=== PATIENT | male | born 1935 | race Caucasian/White ===

== ENCOUNTER → 2017-04-06 09:47 | Outpatient (CLI) | payer MEDICARE, SELFPAY ==
[2017-04-06 12:21] LABS: Hemoglobin A1c 5.8 % (4.2-6.3)
[2017-04-06 12:27] LABS: AST(SGOT) 13 U/L (15-37); Alanine Aminotransfer ALT/SGPT 21 U/L (16-61); Alkaline Phosphatase 56 U/L (45-117); Anion Gap 10 (5-15); BUN 33 mg/dL (7-18); BUN/Creat Ratio 14.7 RATIO (10-20); Bilirubin, Direct 0.21 mg/dL (0.00-0.30); Calcium,Total 9.8 mg/dL (8.5-10.1); Chloride 107 mmol/L (98-107); Cholesterol 145 mg/dL (200); Creatinine, Serum 2.24 mg/dL (0.70-1.30); EST Glomerular Filtration Rate 30 mL/min (>60); Est Glom Filt Rate - Afr Amer 36 mL/min (>60); Globulin 3.1 g/dL (2.2-4.2); Glucose 106 mg/dL (70-110); High Density Lipoprotein 37 mg/dL; Potassium 5.1 mmol/L (3.5-5.1); Protein, Total 7.1 g/dL (6.4-8.2); Sodium Level 142 mmol/L (136-145); Triglycerides 138 mg/dL; Very Low Density Lipoprotein 28 mg/dL (5-40)
== END ==
PROVIDERS: Family Provider Family Medicine; PCP Family Medicine; Visit Provider Family Medicine
DX: E11.9 Type 2 diabetes mellitus without complications (principal)
CPT/HCPCS: 36415; 80048; 80061; 80076; 82043; 82570; 83036

== ENCOUNTER 2017-05-27 19:50 | Emergency (ER) | payer MEDICARE, SELFPAY ==
[2017-05-27] VITALS (9 sets, daily range): BP systolic 137–172; BP diastolic 64–84; PULSE 70–77; RESP 16–21; TEMP 37.1; O2SAT 96–100; BMI 31.4
--- NOTE | 2017-05-27 20:07 | EKG12_ITS ---
Test Reason : CP Blood Pressure : / mmHG Vent. Rate : 070 BPM Atrial Rate : 070 BPM P-R Int : 192 ms QRS Dur : 090 ms QT Int : 414 ms P-R-T Axes : 065 003 169 degrees QTc Int : 447 ms Atrial-paced rhythm with frequent ventricular-paced complexes ST & T wave abnormality, consider lateral ischemia Abnormal ECG Confirmed by ROSARIO HOLDER, COURTNEY ([id number]), primer expeditor and drier OZZIE BARNARD ([id number]) on 05/29/2017 2:45:43 PM Referred By: ELA Confirmed By:COURTNEY PONCE MD
--- NOTE | 2017-05-27 20:10 | RAD_ITS ---
STUDY: X-RAY CHEST REASON FOR EXAM: Male, 81 years old. Chest pain, shortness of breath TECHNIQUE: Single AP portable view of the chest. COMPARISON: 03/06/2016. FINDINGS: The lungs are clear and expanded. There is no demonstrated pleural abnormality. There is mild cardiac enlargement. Patient status post sternotomy. Normal mediastinum and jose antonio. Normal visualized pulmonary arteries. Normal visualized aortic arch and descending thoracic aorta. Normal visualized thoracic spine. Normal visualized ribs, clavicles, and shoulders. There is no demonstrated abnormality of the visualized soft tissue structures of the upper abdomen. RAD/Chest 1 View (Portable) IMPRESSION: No infiltrate. Stable cardiomegaly. Electronically Signed: Roshan Burnett DO at 20:43 EDT , Service support ,
[2017-05-27] MEDS: Nitroglycerin Infusion 250 ML 3 MG IV (20:13)
[2017-05-27 20:28] LABS: International Normalized Ratio 1.2; Prothrombin Time (Protime)PT. 14.8 SECONDS (11.7-14.9)
[2017-05-27 20:29] LABS: Partial Thromboplast Time 30.3 Seconds (24.1-36.2)
[2017-05-27 20:30] LABS: Absolute Lymphocyte Count 1.13 X10^3/ul (0.83-4.51); Absolute Neutrophil Count 4.3 X10^3/uL (2.0-7.7); Basophil# 0.03 X10^3/uL; Basophil% 0.5 % (0-1); Eosinophil# 0.21 X10^3/uL; Eosinophils% 3.4 % (0-5); Hematocrit 40.3 % (40-54); Hemoglobin 12.8 g/dl (13.0-16.5); Lymphocyte # 1.13 X10^3/ul (4.0); Lymphocyte % 18.4 % (19-41); Mean Corp Hgb Conc 31.8 g/gl (32-36); Mean Corpuscular Hgb 29.3 pg (27.0-32.0); Mean Corpuscular Volume 92.2 fL (80-94); Mean Platelet Vol. 10.6 fl (6.2-12.0); Monocyte# 0.43 X10^3/uL; Neutrophil # 4.31 X10^3/uL (2.7-7.7); Neutrophil % 70.2 % (47-70); Platelet Count 337 K/mm3 (150-450); RBC Distribution Width CV 15.8 % (11.6-14.6); RBC Distribution Width SD 52.9 fl (35.1-43.9); Red Blood Count 4.37 M/mm3 (4.6-6.2); White Blood Count 6.1 K/mm3 (4.4-11.0)
[2017-05-27 20:31] LABS: POSITIVE COUNT NO; POSITIVE DIFFERENTIAL NO; POSITIVE MORPHOLOGY NO
[2017-05-27 20:34] LABS: Anion Gap 7 (5-15); BUN 41 mg/dL (7-18); BUN/Creat Ratio 15.5 RATIO (10-20); Calcium,Total 9.3 mg/dL (8.5-10.1); Chloride 109 mmol/L (98-107); Creatinine, Serum 2.65 mg/dL (0.70-1.30); EST Glomerular Filtration Rate 25 mL/min (>60); Est Glom Filt Rate - Afr Amer 30 mL/min (>60); Estimated Creatinine Clearance 20.79 ml/min; Glucose 112 mg/dL (74-106); Potassium 4.7 mmol/L (3.5-5.1); Sodium Level 142 mmol/L (136-145)
[2017-05-27] MEDS: Morphine 2 MG/ML Syringe IV (20:47)
[2017-05-27] MEDS: Ondansetron 4 MG/2 ML Vial IV (20:47)
[2017-05-27 21:15] LABS: Bedside Glucose 122 mg/dL (70-110)
--- NOTE | 2017-05-27 22:24 | ED.VISSUMM ---
- ER Visit Summary Date of Service: 05/27/17 Chief Complaint: Chest pain History of Present Illness: The patient is a 81 M arriving by EMS with a complaint of chest pain. Patient has a long history of ischemic cardiomyopathy. He has had CABG and stenting. He sees Dr. Fagan for cardiology. Patient states that his last heart catheterization was in February. He is treated medically at that time. But 1800 hrs. tonight he was alone at work when he parents a sudden onset of midsternal chest pain that rated up into his jaw on his throat. The patient states that after around 1 hour he called his . He told her that he felt like he was dying. Did not know what he should do so she called an ambulance. Administer some nitroglycerin which she states helps. EMS notes his initial blood pressure was greater than 200 which is since come down to the 140 range. Physical Examination: 157/73 temperature 98.7 heart rate 72 respirations are 16 pulse ox is 96% Gen: Well-nourished well-developed Head: Normocephalic atraumatic Eyes: Perrl EOMI ENT: TMs clear no rhinorrhea moist mucous membranes Neck: Supple no lymphadenopathy no JVD nontender CVS: Regular rate rhythm no murmurs normal S1-S2 Respiratory: No distress clear to auscultation bilaterally chest nontender Abdomen: Soft nontender nondistended normal bowel sounds no masses Back: Nontender Extremity: Nontender no edema Skin: Normal color no rash Neuro: alert orientated ?3 CN II-XII intact normal strength sensation reflexes gait cerebellar Psych: Anxious Test Results: EKG shows a atrial paced rhythm with intermittent ventricularly paced rhythms at a rate of 70. Nightly 41 creatinine 2.65. Troponin less than 0.02. Chest x-ray negative. Delta troponin was negative Emergency Department Course and Treatment: After initial H&P I spoke with Dr. Fagan. He did review our EKGs. The patient will have a delta troponin. Received nitroglycerin and morphine. He has been visiting with his family. He continues to have various aches sometimes having an ache in his jaw sometimes in his chest. Patient is eager to be discharged. Impression: 1. Chest pain This note was generated with [employer] dictation software. It may contain incorrect words, spelling, and punctuation that were not noted in review of the chart prior to signing ED Disposition - Plan for ED Patient: Disposition: Home or Assisted Living Chief Complaint: Chest Pain Instructions: ED Chest Pain Atypical Unkn Cause Referrals: Salima Tuttle MD [Primary Care Provider] - David Fagan MD [STAFF PHYSICIAN] - Keep N[facility]stor appointment
[2017-05-27] MEDS: Carvedilol 3.125 MG TABLET PO (23:04)
[2017-05-27] MEDS: Clopidogrel Bisulfate 75 MG Tablet PO (23:04)
--- NOTE | 2017-05-27 23:23 | ED.RN ---
PT REPORTS RETURN OF [facility] PAIN. DR. MAHMOOD INFORMED. ELA SALDIVAR AT BEDSIDE TO SPEAK WITH PT.
--- NOTE | 2017-05-27 23:31 | ED.RN ---
THIS RN EDUCATED PT, AND DAUGHTER ON PT DISCHARGE INSTRUCTIONS. PT AND VERBALIZE UNDERSTANDING. PT REPORTS NO FURTHER QUESTIONS. PT EDUCATED TO RETURN TO ER WITH WORSENING OR CHANGE IN SX. PT TO FOLLOW UP WITH DR. PONCE. PT IV D.C AND COVERED WITH 2X2 GAUZE DRESSING. PT REFUSES WHEELCHAIR OR ASSISTANCE WITH DRESSING. PT AMBULATORY OUT OF DEPT WITHOUT DIFFICULTY OR ASSISTANCE FROM STAFF.
== END 2017-05-27 23:33 | disposition home or self-care (01) ==
PROVIDERS: Emergency Provider Emergency Medicine; Family Provider Family Medicine; PCP Family Medicine
DX: R07.9 Chest pain, unspecified (principal); I25.5 Ischemic cardiomyopathy; Z95.1 Presence of aortocoronary bypass graft; I25.10 Atherosclerotic heart disease of native coronary artery without angina pectoris; I25.2 Old myocardial infarction; I10 Essential (primary) hypertension; I50.9 Heart failure, unspecified; E78.00 Pure hypercholesterolemia, unspecified; Z87.891 Personal history of nicotine dependence; Z79.82 Long term (current) use of aspirin; Z79.02 Long term (current) use of antithrombotics/antiplatelets; Z79.899 Other long term (current) drug therapy
CPT/HCPCS: 36415; 71045; 80048; 82962; 84484; 85025; 85610; 85730; 93005; 96365; 96375; 99285; A4216; J2405

== ENCOUNTER → 2017-07-30 10:53 | Outpatient (CLI) | payer MEDICARE, SELFPAY ==
--- NOTE | 2017-07-30 10:57 | RAD_ITS ---
STUDY: X-RAY - ABDOMEN/PELVIS REASON FOR EXAM: Male, 82 years old. History of nephrolithiasis. TECHNIQUE: Two AP supine views of the abdomen and pelvis. COMPARISON: None. FINDINGS: Increased linear markings at the left lung base suggestive of scarring with blunting of the left costophrenic angle. There is a moderate amount of colonic fecal material. The visualized liver, spleen and kidneys are grossly normal in size and morphology. Normal soft tissue structures. There are diffuse degenerative changes of the visualized lumbar spine. RAD/Abdomen Single View IMPRESSION: Moderate amount of fecal material is seen in the colon. Electronically Signed: Octavio Kurtz MD at 11:25 EDT Tel [phone], Service support ,
[2017-07-30 12:39] LABS: Anion Gap 8 (5-15); BUN 29 mg/dL (7-18); Calcium,Total 9.1 mg/dL (8.5-10.1); Chloride 105 mmol/L (98-107); Creatinine, Serum 2.23 mg/dL (0.70-1.30); EST Glomerular Filtration Rate 30 mL/min (>60); Est Glom Filt Rate - Afr Amer 37 mL/min (>60); Glucose 192 mg/dL (74-106); Potassium 4.6 mmol/L (3.5-5.1); Sodium Level 140 mmol/L (136-145)
[2017-07-30 12:53] LABS: Absolute Lymphocyte Count 0.93 X10^3/ul (0.83-4.51); Absolute Neutrophil Count 4.2 X10^3/uL (2.0-7.7); Basophil# 0.03 X10^3/uL; Basophil% 0.5 % (0-1); Eosinophils% 3.5 % (0-5); Lymphocyte # 0.93 X10^3/ul (4.0); Lymphocyte % 16.2 % (19-41); Mean Corp Hgb Conc 32.4 g/gl (32-36); Mean Corpuscular Hgb 29.5 pg (27.0-32.0); Mean Corpuscular Volume 90.9 fL (80-94); Monocyte# 0.38 X10^3/uL; Monocyte% 6.6 % (0-10); Neutrophil # 4.17 X10^3/uL (2.7-7.7); Neutrophil % 72.9 % (47-70); RBC Distribution Width CV 16.4 % (11.6-14.6)
[2017-07-30 12:54] LABS: Hematocrit 40.1 % (40-54); Mean Platelet Vol. 10.6 fl (6.2-12.0); POSITIVE COUNT NO; POSITIVE DIFFERENTIAL NO; POSITIVE MORPHOLOGY NO; Platelet Count 303 K/mm3 (150-450); Red Blood Count 4.41 M/mm3 (4.6-6.2); White Blood Count 5.7 K/mm3 (4.4-11.0)
== END ==
PROVIDERS: Family Provider Family Medicine; PCP Family Medicine; Visit Provider Family Medicine
DX: N20.0 Calculus of kidney (principal)
CPT/HCPCS: 36415; 74018; 80048; 85025; 87077; 87086; 87088; 87186

== ENCOUNTER → 2017-07-30 12:22 | Outpatient (CLI) | payer MEDICARE, SELFPAY | PROVIDERS: Family Provider Family Medicine; PCP Family Medicine; Visit Provider Family Medicine | DX: N20.0 Calculus of kidney (principal) | CPT/HCPCS: 87086 ==

== ENCOUNTER 2017-08-04 18:30 | Observation (INO) | payer MEDICARE, SELFPAY ==
[2017-08-04 18:31] VITALS: BP 116/66; PULSE 76; RESP 16; TEMP 36.6; O2SAT 99; BMI 29.2
--- NOTE | 2017-08-04 18:53 | CT_ITS ---
CT Abdomen And Pelvis W/O Contrast INDICATION: RT FLANK PAIN X ONE WEEK. Hx of kidney stones. HTN and diabetes-rx controlled. Hx of IL x 2-3,ICD,pacemaker COMPARISON: July 14, 2011 TECHNIQUE: Noncontrast axial CT examination of the abdomen and pelvis with coronal and sagittal reformatted images. FINDINGS: There is a dural based 1.6 cm rounded atelectasis seen at the left posterior lung base, unchanged compared to the prior study from 2011. The heart size is mildly prominent. The liver is normal in size. The gallbladder is surgically absent. The spleen is enlarged and measures 15 cm in craniocaudal dimension. Size and shape of the spleen is not significantly changed compared to 2012. Bilateral cortical renal atrophy is noted and multiple bilateral cortical renal cysts. Bowel loops are nondistended. There is no evidence of free air or free fluid. The prostate gland is mildly prominent with 5 cm diameter and demonstrates coarse calcifications.. There is no evidence of free air or free fluid. The osseous structures demonstrate multilevel bridging osteophytes and degenerative disc disease at all lumbar levels. CT/Abdomen/Pelvis without Cont IMPRESSION: No acute abnormality identified in the abdomen or pelvis. Stable rounded atelectasis at the left lung base. Stable splenomegaly. Stable bilateral cortical renal cysts. Stable prostatomegaly with heterogeneity. Correlation with PSA is recommended. at 1949 Reported and signed by: Mariia Orlando MD Electronically Signed: Mariia Orlnado MD at 19:47 EDT Tel , Service support ,
[2017-08-04] MEDS: Morphine 2 MG/ML Syringe IV ×2 (19:14→22:07)
[2017-08-04] MEDS: Ketorolac 30 MG/ML Syringe 15 MG IV (19:14)
[2017-08-04] MEDS: Ondansetron 4 MG/2 ML Vial IV (19:14)
[2017-08-04 19:32] LABS: Absolute Lymphocyte Count 0.98 X10^3/ul (0.83-4.51); Absolute Neutrophil Count 4.5 X10^3/uL (2.0-7.7); Basophil# 0.03 X10^3/uL; Basophil% 0.5 % (0-1); Eosinophil# 0.22 X10^3/uL; Eosinophils% 3.6 % (0-5); Hematocrit 40.7 % (40-54); Hemoglobin 13.2 g/dl (13.0-16.5); Lymphocyte # 0.98 X10^3/ul (4.0); Mean Corp Hgb Conc 32.4 g/gl (32-36); Mean Corpuscular Hgb 29.5 pg (27.0-32.0); Mean Corpuscular Volume 91.1 fL (80-94); Mean Platelet Vol. 10.1 fl (6.2-12.0); Monocyte# 0.42 X10^3/uL; Monocyte% 6.9 % (0-10); Neutrophil # 4.46 X10^3/uL (2.7-7.7); Neutrophil % 72.8 % (47-70); Platelet Count 330 K/mm3 (150-450); RBC Distribution Width CV 16.3 % (11.6-14.6); RBC Distribution Width SD 53.7 fl (35.1-43.9); Red Blood Count 4.47 M/mm3 (4.6-6.2); White Blood Count 6.1 K/mm3 (4.4-11.0)
[2017-08-04 19:33] LABS: POSITIVE COUNT NO; POSITIVE DIFFERENTIAL NO; POSITIVE MORPHOLOGY NO
[2017-08-04 19:39] LABS: Anion Gap 9 (5-15); BUN 29 mg/dL (7-18); BUN/Creat Ratio 11.8 RATIO (10-20); Chloride 104 mmol/L (98-107); Creatinine, Serum 2.45 mg/dL (0.70-1.30); EST Glomerular Filtration Rate 27 mL/min (>60); Est Glom Filt Rate - Afr Amer 33 mL/min (>60); Estimated Creatinine Clearance 22.11 ml/min; Glucose 206 mg/dL (74-106); Sodium Level 140 mmol/L (136-145)
[2017-08-04 20:18] LABS: Bacteria 0 SEEN /hpf (None Seen); Red Blood Cells-Urine 0 SEEN /hpf (0-5)
[2017-08-04 20:19] LABS: Color, Urine Yellow (Yellow); Glucose, Dipstick Normal (Normal); Ketone-Dipstick Negative (Negative); Leukocyte Esterase-Dipstick Negative /ul (Negative); Nitrite-Dipstick Negative (Negative); Occult Blood-Urine Negative /ul (Negative); Protein-Dipstick 500 mg/dl (Negative); Urine Bilirubin Dipstick Negative (Negative); Urine Clarity Sl. Cloudy (Clear); Urine Urobilinogen Normal (Normal)
[2017-08-04 20:29] LABS: Squamous Epithelial Cells - UA 0-5 SEEN /hpf (0-5); White Blood Cells 0-5 SEEN /hpf (0-5)
[2017-08-04 20:32] LABS: Fine Granular Cast- Urine 0-5 SEEN /lpf (0-5)
[2017-08-04 20:34] LABS: Hyaline Cast 10-25 SEEN /lpf (0-5)
[2017-08-04 20:36] LABS: Mucous, Urine 1+ /hpf (<or=2+)
[2017-08-04 22:05] VITALS: BP 139/64; PULSE 66; RESP 16; O2SAT 95
[2017-08-04 22:39] VITALS: BP 139/64; PULSE 66; RESP 16; TEMP 36.6; O2SAT 95
--- NOTE | 2017-08-04 22:43 | ED.DCSUM_ITS ---
- ER Visit Summary Date of Service: 08/04/17 Chief Complaint: Abdominal pain History of Present Illness: The patient is a 82 M who presents with 1 week of a continuous waxing and waning sharp stabbing right lower quadrant abdominal pain. Describes it as severe. He notes occasional nausea but no vomiting or diarrhea no constipation. Denies any urinary symptoms. No radiation of the pain. The pain is worse with movement and in particular walking. No known trauma. Patient denies any fevers. Patient denies any rashes. He has history of coronary artery disease and kidney stones. He states that this feels very similar to kidney stones. Physical Examination: Afebrile vital signs are stable Gen: Well-nourished well-developed Head: Normocephalic atraumatic Eyes: Perrl EOMI ENT: TMs clear no rhinorrhea moist mucous membranes Neck: Supple no lymphadenopathy no JVD nontender CVS: Regular rate rhythm no murmurs normal S1-S2 Respiratory: No distress clear to auscultation bilaterally chest nontender Abdomen: Soft tender to palpation in the far low right quadrant with guarding and no rebound. Pain seems to be just cephalad to the inguinal ligaments. There are no rashes. There is no obvious hernia. R nondistended normal bowel sounds no masses : Uncircumcised. There is no testicular pain. No epididymis pain. No hernia. Back: Nontender Extremity: Nontender no edema Skin: Normal color no rash Neuro: alert orientated ?3 CN II-XII intact normal strength sensation reflexes gait cerebellar Psych: Normal affect normal mood Test Results: CBC and urinalysis normal. BUN at 29 and creatinine 2.45. Noncontrasted CT demonstrated renal cyst but no obvious cause for the patient's pain. Emergency Department Course and Treatment: The patient received morphine Toradol Zofran. He has not had improvement of his pain. He does not feel like he is able to go home. The does not wish him to go home. I spoke with Dr. Vences and Dr. Castellanos. Plan will be admission for pain control and further care. Impression: 1. Acute abdominal pain This note was generated with [employer] dictation software. It may contain incorrect words, spelling, and punctuation that were not noted in review of the chart prior to signing ED Disposition - Plan for ED Patient: Chief Complaint: Flank Pain
[2017-08-04 23:36] LABS: Lactic Acid 0.6 mmol/L (0.4-2.0)
--- NOTE | 2017-08-04 23:37 | PCM.HP.STD ---
Problem List (1) Abdominal pain Status: Acute Qualifiers: Abdominal location: right lower quadrant Qualified Code(s): R10.31 - Right lower quadrant pain History of Present Illness Date of Admission: 08/04/17 Chief Complaint: Right lower quadrant abdominal pain The patient is a 82 year old M who was seen in the emergency room at [facility] with chief complaint of right lower quadrant/right inguinal area pain which he describes as sharp in nature that is been present for the last 8 days. It is not accompanied by urinary urgency or urinary frequency or dysuria. Patient states the pain is worse when weightbearing on his right leg, he did have some nausea with the lower abdominal discomfort, he denied any diarrhea, vomiting, or blood in the stool. Patient saw his PCP last 07/30/17 and was placed on Flomax (patient mentioned to the emergency room physician today that his family physician thought he may have had a kidney stone) and Vicodin, a KUB was ordered at that time which showed a moderate amount of fecal material in the colon but was otherwise unremarkable. Workup in the emergency room today consisted of a CT of the abdomen and pelvis without contrast, no acute abnormality was noted, patient had labs drawn which were remarkable for glucose of 206, BUN of 29, creatinine of 2.45. Urine culture obtained as an outpatient on 07/30/17 grew out small numbers of Sphingomonas paucimobilis. On physical examination, patient had right lower quadrant abdominal pain to palpation-more so in the right inguinal area near the inguinal ligament. No discernible inguinal hernia was noted to be present, patient's right testicle was not tender, it was not enlarged, and there was no scrotal edema. Patient was given IV morphine in the emergency room with some relief of the abdominal pain. Patient will be placed in observation status for right lower quadrant abdominal pain, general surgery was consulted and will see the patient tomorrow. 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) Pneumonia (Chronic) Hypertensive heart disease without heart failure (Chronic) HTN (hypertension) (Chronic) HLD (hyperlipidemia) (Chronic) Esophageal reflux (Chronic) Diaphragmatic hernia (Chronic) Type II diabetes mellitus, uncontrolled (Chronic) Coronary atherosclerosis of [place] coronary artery (Chronic) Unstable angina (Chronic) Renal insufficiency (Chronic) Cardiac pacemaker (Chronic) 12/14 Implantable Loop Recorder; 02/12/09 Removal of Loop Recorder; PPM Implant 05/2014 Ventricular tachycardia (Chronic) S/P PTCA (percutaneous transluminal coronary angioplasty) (Chronic) S/P CABG x 2 (Chronic) CABG with RUSH to LAD, SVG to Cx 06/17/05 Dr. Cotto; 06/25/05, Sternal Dehiscence strnal rewiring & debridement CHF (congestive heart failure) (Chronic) NSTEMI (non-ST elevated myocardial infarction) (Chronic) Cardiomyopathy (Chronic) Allergies Penicillins Allergy (Verified 08/04/17 18:34) Anaphylaxis rosuvastatin calcium [From Crestor] Allergy (Verified 08/04/17 18:34) Unknown Kqcfnrv-[id number]-Kmi Reductase Inhibitor Allergy (Verified 08/04/17 18:34) Other amlodipine [From Norvasc] Adverse Reaction (Intermediate, Verified 08/04/17 18:34) GI upset Home Medications: Ambulatory Orders Medication Instructions Recorded Clopidogrel Bisulfate [Plavix] 75 mg PO QHS 03/12/14 Folic Acid 5 mg PO QHS 03/12/14 Aspirin [Aspirin, Baby] 81 mg PO QHS 04/14/14 Multivitamins,Therapeutic 1 tab PO QHS 04/14/14 [Multivitamin] Ubidecarenone [Q-Sorb Co Q-10] 100 mg PO QHS 02/25/16 Carvedilol [Coreg (Beta David)] 3.125 mg PO BID #60 tab 02/27/16 Isosorbide Mononitrate [Monoket] 20 mg PO BID@0800,1500 #60 tab 03/07/16 amlodipine 5 mg tablet 5 mg PO QDAY tab 06/04/17 metformin ER 500 mg 500 mg PO DAILY 90 Days #90 06/04/17 tablet,extended release 24 hr nitroglycerin 0.4 mg sublingual 0.4 mg SUBLINGUAL Q5M PRN #25 tab 06/05/17 tablet furosemide 20 mg tablet 20 mg PO QDAY #30 tab 07/17/17 Surgical History: cholecystectomy, and PCI to LMA graft Psychiatric History: No pertinent psych hx Lives: Spouse/ Significant Other Smoking Status: Former smoker Tobacco Use: Non-smoker Alcohol: Rare Drugs: None - *Family History Paternal History Items: Heart Disease Maternal History Items: No pertinent history Review of Systems Constitutional: Denies: Anorexia, Chills, Fever, Night Sweats, Malaise, Weakness, Weight Change, Fatigue Eyes: Denies: Blurred vision, Cataracts, Conjunctivae Inflammation, Double vision, Drainage HEENT: Denies: Difficulty Swallowing, Dysphasia, Ear Pain, Eye Pain, Hearing Changes, Nasal bleeding, Nasal Congestion, Post Nasal Drip Cardiovascular: Denies: Chest Pain, Claudication, Chest Pressure, Chest Tightness, Edema, Heaviness, Palpitations, Paroxysmal Noc. Dyspnea Respiratory: Denies: Cough, Hemoptysis, Pleuritic Pain, Shortness of Breath, Shortness of breath at rest, Shortness of breath upon exertion, Sputum production Gastrointestinal: Reports: Abdominal Pain, Nausea. Denies: Constipation, Diarrhea, Dyspepsia, Hematemesis, Hematochezia, Melena, Vomiting Genitourinary: Denies: Dysuria, Frequency, Hematuria, Hesitancy, Incontinence, Nocturia, Retention, Urgency Musculoskeletal: Reports: Leg Pain, - - Patient complains of pain in the right inguinal area when walking or weightbearing. Denies: Back Pain, Foot Pain, Hand Pain, Joint stiffness, Joint swelling, Joint Tenderness Skin: Denies: Dryness, Pruritis, Rash Neurological: Denies: Blurred vision, Double vision, Change in Speech, Slurred speech, Difficulty swallowing, Focal weakness, Headaches, Incoordination, Numbness, Tingling Psychiatric: Denies: Anxiety, Depression, Homicidal Ideations, Suicidal Ideations Endocrine: Denies: Change in Body Habitus, Heat/ Cold Intolerance, Polydipsia, Polyuria Hematologic/ Lymphatic: Denies: Adenopathy, Anemia, Easy Bruising, Easy Bleeding, Petechiae, Purpura VTE Information - Inpt Only VTE Present on Admission: No VTE Mechan Device Prophylaxis: None VTE Pharm Prophylaxis ordered?: Yes Patient Problems: Active and Suspected Problems (Last Updated 06/04/17 @ 09:46 by Abby Suero) Abdominal pain (Acute) - Physical Exam General: Alert, Oriented x3, Cooperative, No apparent distress, Well developed, Well nourished HEENT: Atraumatic, PERRLA, EOMI, Normocephalic Oral: Moist Mucosa Neck: Supple, No JVD, Negative Carotid Bruits, No Nuchal Rigidity, Trachea Midline, Thyroid Normal Size and Texture Lungs: Clear to auscultation, Normal air movement, No rhonchi, No wheeze, No rales Cardiovascular: Regular rate, Regular Rhythm, Normal S1, Normal S2, No murmurs, No Ectopic Activity, PMI Normal, No rub noted, No Gallop Abdomen: Bowel Sounds Present, Soft, Non-Distended, Tender - Tenderness to palpation is noted over the right lower quadrant extending into the right inguinal area, No hernias noted Extremities: No clubbing, No cyanosis, No edema, Capillary Refill Less than 3 Seconds Skin: No rashes, No breakdown Musculoskeletal: Tenderness - Tenderness to palpation in the right inguinal area noted Neurological: Cranial nerves II-XII grossly intact, Neuro grossly intact, Muscle tone normal, Sensory exam intact to light touch and pain, Coordination normal Psych/Mental Status: Normal Affect, Appropriate, Alert and oriented to time, place, person, mood and affect Vital Signs Temp Pulse Resp BP Pulse Ox 97.8 F 66 16 139/64 H 95 08/04/17 22:39 08/04/17 22:39 08/04/17 22:39 08/04/17 22:39 08/04/17 22:39 Laboratory Tests Past 24 Hrs 08/04/17 23:05 Lactic Acid 0.6 Assessment/Plan Active and Suspected Problems (Last Updated 06/04/17 @ 09:46 by Abby Suero) Abdominal pain (Acute) #1 right lower quadrant abdominal pain-etiology unclear, patient will be placed in observation status on MedSur, he will be placed on clear liquids, IV fluids will be administered, he will be seen in consultation by general surgery. I do not feel the patient's pain is characteristic of ischemic bowel #2 right inguinal area pain-I am unsure as to what the etiology of this discomfort is, it could be a inguinal ligamental strain or pain relating to the right hip. If general surgery does not feel there is a definite surgical diagnosis for the patient's abdominal pain, this area may need to be x-rayed or the patient may need to be seen by orthopedic surgery. Patient relates to pain in his right leg over the inguinal area when he ambulates or bears weight. 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 Castellanos by the emergency room physician. I will leave it up to general surgery to order further studies as needed #4 type 2 diabetes-patient's blood sugar will be monitored and sliding scale insulin will be administered if needed #5 Coronary artery disease #6 ischemic cardiomyopathy #7 hypertension #8 hyperlipidemia Code Visit OBSV E&M: 44116 Initial observation care L3
[2017-08-05 00:15] VITALS: BMI 28.5; BMI 28.6
[2017-08-05] MEDS: 0.9% Normal Saline 1,000 ML 75 ML IV ×2 (00:44→13:33)
[2017-08-05] MEDS: Morphine 4 MG/ML Syringe IV ×2 (03:24→18:55)
[2017-08-05] MEDS: 0.9% NaCl Peripheral Flush Adult/Peds IV (03:24)
[2017-08-05 03:41] VITALS: BP 154/74; PULSE 70; RESP 18; TEMP 36.2; O2SAT 95
--- NOTE | 2017-08-05 03:48 | NURSING ---
PT DOES NOT KNOW DOSAGES OF HOME MEDICATIONS. MD'S OFFICE AND PHARMACY NOT AVAILABLE AT TIME OF ADMISSION.
[2017-08-05] MEDS: Heparin Injection (Vial) 5,000 UNIT/ML VIAL 5000 UNIT SC ×3 (05:59→22:08)
[2017-08-05 06:00] LABS: Anion Gap 8 (5-15); BUN 32 mg/dL (7-18); BUN/Creat Ratio 12.7 RATIO (10-20); Calcium,Total 9.1 mg/dL (8.5-10.1); Chloride 106 mmol/L (98-107); Creatinine, Serum 2.52 mg/dL (0.70-1.30); EST Glomerular Filtration Rate 26 mL/min (>60); Est Glom Filt Rate - Afr Amer 32 mL/min (>60); Estimated Creatinine Clearance 21.49 ml/min; Glucose 141 mg/dL (74-106); Potassium 4.5 mmol/L (3.5-5.1); Sodium Level 142 mmol/L (136-145)
[2017-08-05 06:05] LABS: Bedside Glucose 149 mg/dL (70-110)
[2017-08-05 06:09] LABS: Absolute Lymphocyte Count 0.86 X10^3/ul (0.83-4.51); Absolute Neutrophil Count 2.8 X10^3/uL (2.0-7.7); Basophil# 0.01 X10^3/uL; Basophil% 0.2 % (0-1); Eosinophil# 0.12 X10^3/uL; Eosinophils% 2.8 % (0-5); Hematocrit 35.8 % (40-54); Hemoglobin 11.6 g/dl (13.0-16.5); Lymphocyte # 0.86 X10^3/ul (4.0); Lymphocyte % 20.3 % (19-41); Mean Corp Hgb Conc 32.4 g/gl (32-36); Mean Corpuscular Hgb 29.6 pg (27.0-32.0); Mean Corpuscular Volume 91.3 fL (80-94); Mean Platelet Vol. 9.8 fl (6.2-12.0); Monocyte# 0.47 X10^3/uL; Monocyte% 11.1 % (0-10); Neutrophil # 2.77 X10^3/uL (2.7-7.7); Neutrophil % 65.4 % (47-70); Platelet Count 263 K/mm3 (150-450); RBC Distribution Width CV 16.4 % (11.6-14.6); RBC Distribution Width SD 54.9 fl (35.1-43.9); Red Blood Count 3.92 M/mm3 (4.6-6.2); White Blood Count 4.2 K/mm3 (4.4-11.0)
[2017-08-05 06:12] LABS: POSITIVE COUNT NO; POSITIVE DIFFERENTIAL NO; POSITIVE MORPHOLOGY NO
--- NOTE | 2017-08-05 07:02 | PCM.PROGNOTE ---
Patient Problems: Active and Suspected Problems (Last Updated 06/04/17 @ 09:46 by Abby Suero) Abdominal pain (Acute) Subjective: Mr. Otto is an 82-year-old male with an extensive past medical history that includes ischemic cardiomyopathy, coronary artery disease with stents, right bundle branch block, complete heart block, combined systolic and diastolic congestive heart failure, hypertension, hyperlipidemia, GERD, diaphragmatic hernia, diabetes mellitus type 2, chronic renal failure stage III, cardiac pacemaker, ventricular tachycardia, and history of CABG ?2 vessels in 2005 who preented to the ED at [facility] on 08/04/2017 complaining of right lower quadrant abdominal pain. Vital signs at presentation to the emergency room were temperature 97.8, pulse rate 76, blood pressure 116/66, respiratory rate 16 and he was 99% saturated on room air. White blood cell count was normal at 6.1 with an unremarkable differential. Hemoglobin and platelets were within normal limits. BMP was remarkable for a potassium of 5.0, BUN of 29 and a creatinine of 2.45. 2.45 is within his baseline over the past 5 months. UA showed 0-5 WBCs, 0 RBCs, negative nitrite and there were 10-[address] scan of the abdomen and pelvis showed no acute abnormality. He was admitted to the hospital for observation and Dr. Castellanos was consulted for surgical opinion. Afebrile since admission. Vital signs are stable. White blood cell count today is mildly decreased at 4.2 and differential is unremarkable. Hemoglobin is 11.6 and platelets are normal. BMP shows the BUN to be 32 today with a creatinine of 2.52. Up from 2.45 at admission. EF 30% on cath in 2016 He tells me that he had a kidney stone 14 years ago and had the exact same SX. W/U at that time was negative however Dr. Ndiaye though he had a stone and he eventually passed a stone and has not had the pain since. He is c/o pain in the right flank that radiates into the right groin and into the right testicle. He denies painful urination. The pain gets worse when he is standing and he describes it as 10/10 pain. Denies any radiation of the pain down his legs and denies any paresthesias. - Physical Exam General: Alert, Oriented x3, Cooperative, Well developed, Well nourished HEENT: Atraumatic, PERRLA, EOMI, Normocephalic Oral: Moist Mucosa Neck: Supple, No JVD, Negative Carotid Bruits, No Nodes, Trachea Midline Lungs: Clear to auscultation Cardiovascular: Regular rate, Regular Rhythm, Normal S1, Normal S2, No murmurs, No rub noted, No Gallop Abdomen: Bowel Sounds Present, Soft, Non-Distended, - - Show only mild degenerative changes. Tender to palpation in the R Flank and it radiates into the R groin. The right testicle is tender to palpation but not enlarged, no red, no warmth to touch. He is uncircumscribed and the glans has no lesions. He has increased pain with Arturo Ervin test on the R but not until the leg is significantly externally rotated and the Hip Xrays show only mild degenerative changes. Extremities: No clubbing, No cyanosis, No edema, Peripheral Pulses Normal Skin: No rashes, No breakdown Musculoskeletal: No Muscle Wasting Neurological: Cranial nerves II-XII grossly intact, Neuro grossly intact Psych/Mental Status: Normal Affect, Appropriate Vital Signs Temp Pulse Resp BP Pulse Ox 97.2 F L 70 18 154/74 H 95 08/05/17 03:41 08/05/17 03:41 08/05/17 03:41 08/05/17 03:41 08/05/17 03:41 Oxygen Delivery Method Room Air Weight: 182 lb 8.684 oz Body Mass Index (BMI) 28.5 Intake and Output for Last 24 Hours 08/03/17 08/04/17 08/05/17 23:59 23:59 23:59 Intake Total 827 / 827 Balance 827 / 827 Laboratory Tests Past 24 Hrs 08/04/17 08/05/17 08/05/17 23:05 05:14 05:14 WBC 4.2 L RBC 3.92 L Hgb 11.6 L Hct 35.8 L MCV 91.3 MCH 29.6 MCHC 32.4 RDW 16.4 H RDW Differential 54.9 H Plt Count 263 MPV 9.8 Immature Gran % (Auto) 0.200 Neut % (Auto) 65.4 Lymph % (Auto) 20.3 [place] % (Auto) 11.1 H Eos % (Auto) 2.8 Baso % (Auto) 0.2 Absolute Neuts (auto) 2.8 Absolute Lymphs (auto) 0.86 Total Counted Not Reportable Sodium 142 Potassium 4.5 Chloride 106 Carbon Dioxide 28.0 Anion Gap 8 BUN 32 H Creatinine 2.52 H Estim Creat Clear Calc 21.49 Est GFR (MDRD) Af Amer 32 L Est GFR (MDRD) Non-Af 26 L BUN/Creatinine Ratio 12.7 Glucose 141 H Lactic Acid 0.6 Calcium 9.1 POC Glucose 08/05/17 05:57 POC Glucose 149 H Medical Necessity - Tobacco Use Smoking Status: Former smoker Tobacco Use: Non-smoker Assessment/Plan All Active Problems (Last Updated 06/04/17 @ 09:46 by Abby Suero) Abdominal pain (Acute) Impressions 1. R groin pain - uncertain etiology. Had nephrolithiasis 14 years ago and had the same pain until he passed a stone.....3 day W/U in the hospital at that time was also negative 2. Positive history of nephrolithiasis 3. Enlarged prostate 4. Chronic renal failure stage III - 4 5. History of ischemic cardiomyopathy with a 30% ejection fraction 6. Coronary artery disease with history of stents and CABG in [address] Fagan- 7. Right bundle branch block 8. Complete heart block-status post pacemaker 9. History of ventricular tachycardia 10. Diabetes mellitus type 2 Liver profile PSA, XRAY hips and pelvis calculate the corrected serum calcium Continue the IV fluids Nephrology consult? inpt or OP? he now has stage 3-4 CRF Start Bentyl Consult Dr. Steiner - pt may have a radiolucent ston....CT of the abd and the pelvis was done without contrast....would not use contrast in this pt due to CRF III-IV. Retrograde pyelogram? Code Visit Inpatient E&M: 26421 Subs Hosp L2
--- NOTE | 2017-08-05 07:13 | RAD_ITS ---
STUDY: X-RAY - PELVIS AND BILATERAL HIPS REASON FOR EXAM: Male, 82 years old. Right groin pain. No known injury. TECHNIQUE: Radiological exam, hip, bilateral, with pelvis when performed; minimum of 5 views COMPARISON: None. FINDINGS: There is a non-specific bowel gas pattern. Normal visualized soft tissue structures. Normal bilateral iliac wings, sacroiliac joints and visualized sacrum. Normal bilateral superior and inferior pubic rami. Normal pubic symphysis. Normal bilateral ischial tuberosities. Normal visualized right femoral head. There is osteoarthritic spur formation of the right acetabular rim. There is mild articular joint space narrowing of the right hip. Normal visualized left femoral head. Normal left acetabulum. There is mild articular joint space narrowing of the left hip. RAD/Hips B/L min 2 views w/ Pelvis IMPRESSION: Mild degree of both degenerative changes of the hip joints bilaterally. Electronically Signed: Octavio Kurtz MD at 12:59 EDT Tel [phone], Service support ,
[2017-08-05 07:38] LABS: AST(SGOT) 13 U/L (15-37); Alanine Aminotransfer ALT/SGPT 15 U/L (16-61); Albumin, Serum 3.5 g/dL (3.2-5.0); Alkaline Phosphatase 51 U/L (45-117); Bilirubin, Direct 0.27 mg/dL (0.00-0.30); Globulin 2.7 g/dL (2.2-4.2); PSA,Total - Annual Screen 3.84 ng/mL (0.00-4.00); Phosphorus 4.4 mg/dL (2.5-4.9); Protein, Total 6.2 g/dL (6.4-8.2)
--- NOTE | 2017-08-05 07:41 | PCM.CONS.GEN ---
Reason for Consult Date of Consultation: 08/05/17 History of Present Illness: The patient is a 82 year old M admitted for right lower abdomen/groin pain patient stated it started a week ago Thursday she he did see his PCP on Thursday. Patient states he has gotten worse and the pain a 10/10 at its better with rest currently states it is a 4/10 but is worse with movement. He denies noticing any bulge in that area. Patient denies any event that happened right before he noticed the pain. Denies any nausea or vomiting fevers or chills or dysuria. 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) Right bundle branch block (Chronic) Complete AV block, 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) Pneumonia (Chronic) Hypertensive heart disease without heart failure (Chronic) HTN (hypertension) (Chronic) HLD (hyperlipidemia) (Chronic) Esophageal reflux (Chronic) Diaphragmatic hernia (Chronic) Type II diabetes mellitus, uncontrolled (Chronic) Coronary atherosclerosis of [place] coronary artery (Chronic) Unstable angina (Chronic) Renal insufficiency (Chronic) Cardiac pacemaker (Chronic) 12/14 Implantable Loop Recorder; 02/12/09 Removal of Loop Recorder; PPM Implant 05/2014 Ventricular tachycardia (Chronic) S/P PTCA (percutaneous transluminal coronary angioplasty) (Chronic) S/P CABG x 2 (Chronic) CABG with RUSH to LAD, SVG to Cx 06/17/05 Dr. 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) I50.43 HTN (hypertension) (Chronic) I10 HLD (hyperlipidemia) (Chronic) E78.5 Type II diabetes mellitus, uncontrolled (Chronic) E11.65 Coronary atherosclerosis of [place] coronary artery (Chronic) I25.10 Renal insufficiency (Chronic) N28.9 Cardiac pacemaker (Chronic) Z95.0 12/14 Implantable Loop Recorder; 02/12/09 Removal of Loop Recorder; PPM Implant 05/2014 NSTEMI (non-ST elevated myocardial infarction) (Chronic) I21.4 Allergies Penicillins Allergy (Verified 08/04/17 18:34) Anaphylaxis rosuvastatin calcium [From Crestor] Allergy (Verified 08/05/17 00:18) legs hurt Ajbqjsa-Ebn-Aoj Reductase Inhibitor Allergy (Verified 08/05/17 00:18) body aches amlodipine [From Norvasc] Adverse Reaction (Intermediate, Verified 08/05/17 00:18) dizzy Home Medications: Ambulatory Orders Medication Instructions Recorded Clopidogrel Bisulfate [Plavix] 75 mg PO QHS 03/12/14 Folic Acid 5 mg PO QHS 03/12/14 Aspirin [Aspirin, Baby] 81 mg PO QHS 04/14/14 Multivitamins,Therapeutic 1 tab PO QHS 04/14/14 [Multivitamin] Ubidecarenone [Q-Sorb Co Q-10] 100 mg PO QHS 02/25/16 Carvedilol [Coreg (Beta David)] 3.125 mg PO BID #60 tab 02/27/16 Isosorbide Mononitrate [Monoket] 20 mg PO BID@0800,1500 #60 tab 03/07/16 amlodipine 5 mg tablet 5 mg PO QDAY tab 06/04/17 metformin ER 500 mg 500 mg PO DAILY 90 Days #90 06/04/17 tablet,extended release 24 hr nitroglycerin 0.4 mg sublingual 0.4 mg SUBLINGUAL Q5M PRN #25 tab 06/05/17 tablet furosemide 20 mg tablet 20 mg PO QDAY #30 tab 07/17/17 Surgical History: Surgical History (Last Updated 06/04/17 @ 09:46 by Abby Suero) Presence of coronary angioplasty implant and graft (Chronic) Z95.5 Cardiac cath left, 2005 with TAXUS MARIUM of left main stem & proximal OM1; Cardiac ath @ [facility] then PCI @ [facility] 08/11/13 MARIUM prox CX & MARIUM prox LAD S/P PTCA (percutaneous transluminal coronary angioplasty) (Chronic) Z98.61 S/P CABG x 2 (Chronic) Z95.1 CABG with RUSH to LAD, SVG to Cx 06/17/05 Dr. Cotto; 06/25/05, Sternal Dehiscence strnal rewiring & debridement Surgical History: cholecystectomy, and PCI to LMA graft Psychiatric History: No pertinent psych hx Lives: Spouse/ Significant Other Smoking Status: Former smoker Tobacco Use: Non-smoker Alcohol: Rare Drugs: None - *Family History Paternal Family History: Family History (Last Updated 06/04/17 @ 09:48 by Abby Suero) Father Myocardial infarction Hypertension Heart disease Mother Hypertension Emphysema of lung FH: brain aneurysm Daughter Afib History Items: Heart Disease Maternal Family History: Family History (Last Updated 06/04/17 @ 09:48 by Abby Suero) Father Myocardial infarction Hypertension Heart disease Mother Hypertension Emphysema of lung FH: brain aneurysm Daughter Afib History Items: No pertinent history Review of Systems Constitutional: Denies: Chills, Fever Eyes: Reports: Blurred vision HEENT: Denies: Difficulty Swallowing Cardiovascular: Denies: Chest Pressure Respiratory: Denies: Shortness of breath at rest Gastrointestinal: Denies: Nausea, Vomiting Genitourinary: Denies: Dysuria Musculoskeletal: Denies: Joint Pain Neurological: Denies: Confusion Psychiatric: Denies: Anxiety Hematologic/ Lymphatic: Denies: Easy Bruising Patient Problems: Active and Suspected Problems (Last Updated 06/04/17 @ 09:46 by Abby Suero) Abdominal pain (Acute) - Physical Exam General: Alert, Oriented x3, Cooperative Lungs: Normal air movement Cardiovascular: Regular rate Abdomen: Soft, Non-Distended, Tender - In the right inguinal region, no guarding or rebound, - - Positive tenderness palpation of the right testicle, no obvious hernia on exam Extremities: No clubbing, No cyanosis, No edema Neurological: Cranial nerves II-XII grossly intact Psych/Mental Status: Normal Affect Vital Signs Temp Pulse Resp BP Pulse Ox 97.2 F L 70 18 154/74 H 95 08/05/17 03:41 08/05/17 03:41 08/05/17 03:41 08/05/17 03:41 08/05/17 03:41 Oxygen Delivery Method Room Air Weight: 182 lb 8.684 oz Body Mass Index (BMI) 28.5 Intake and Output for Last 24 Hours 08/03/17 08/04/17 08/05/17 23:59 23:59 23:59 Intake Total 827 / 827 Balance 827 / 827 Laboratory Tests Past 24 Hrs 08/04/17 08/05/17 08/05/17 23:05 05:14 05:14 WBC 4.2 L RBC 3.92 L Hgb 11.6 L Hct 35.8 L MCV 91.3 MCH 29.6 MCHC 32.4 RDW 16.4 H RDW Differential 54.9 H Plt Count 263 MPV 9.8 Immature Gran % (Auto) 0.200 Neut % (Auto) 65.4 Lymph % (Auto) 20.3 [place] % (Auto) 11.1 H Eos % (Auto) 2.8 Baso % (Auto) 0.2 Absolute Neuts (auto) 2.8 Absolute Lymphs (auto) 0.86 Total Counted Not Reportable Sodium 142 Potassium 4.5 Chloride 106 Carbon Dioxide 28.0 Anion Gap 8 BUN 32 H Creatinine 2.52 H Estim Creat Clear Calc 21.49 Est GFR (MDRD) Af Amer 32 L Est GFR (MDRD) Non-Af 26 L BUN/Creatinine Ratio 12.7 Glucose 141 H Lactic Acid 0.6 Calcium 9.1 Phosphorus Magnesium Total Bilirubin Direct Bilirubin AST ALT Alkaline Phosphatase Total Protein Albumin Globulin PSA Screen 08/05/17 05:14 WBC RBC Hgb Hct MCV MCH MCHC RDW RDW Differential Plt Count MPV Immature Gran % (Auto) Neut % (Auto) Lymph % (Auto) [place] % (Auto) Eos % (Auto) Baso % (Auto) Absolute Neuts (auto) Absolute Lymphs (auto) Total Counted Sodium Potassium Chloride Carbon Dioxide Anion Gap BUN Creatinine Estim Creat Clear Calc Est GFR (MDRD) Af Amer Est GFR (MDRD) Non-Af BUN/Creatinine Ratio Glucose Lactic Acid Calcium Phosphorus 4.4 Magnesium 2.0 Total Bilirubin 1.20 H Direct Bilirubin 0.27 AST 13 L ALT 15 L Alkaline Phosphatase 51 Total Protein 6.2 L Albumin 3.5 Globulin 2.7 PSA Screen 3.84 POC Glucose 08/05/17 05:57 POC Glucose 149 H Assessment/Plan All Active Problems (Last Updated 06/04/17 @ 09:46 by Abby Suero) Abdominal pain (Acute) 82-year-old male with right lower abdomen/groin pain ?[address] abdomen pelvis done in the ER which did not show any acute findings. On exam no obvious right inguinal hernia, on my exam he did have tenderness in his right testicle however the UA was negative. Unknown etiology of his right abdominal/groin pain. No plans for any surgical intervention currently. Jannet Castellanos M.D. Pager: [phone] [facility] [address] [place] [address], [facility], [address] [place] [id number] Office: [phone] Code Visit Inpatient E&M: 45057 Init Hosp L1
--- NOTE | 2017-08-05 07:47 | CON.PCM_ITS ---
Reason for Consult Date of Consultation: 08/05/17 History of Present Illness: The patient is a 82 year old M admitted for right lower abdomen/groin pain patient stated it started a week ago Thursday she he did see his PCP on Thursday. Patient states he has gotten worse and the pain a 10/10 at its better with rest currently states it is a 4/10 but is worse with movement. He denies noticing any bulge in that area. Patient denies any event that happened right before he noticed the pain. Denies any nausea or vomiting fevers or chills or dysuria. 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) Right bundle branch block (Chronic) Complete AV block, 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) Acute on chronic combined systolic and diastolic congestive heart failure ( Chronic) Pneumonia (Chronic) Hypertensive heart disease without heart failure (Chronic) HTN (hypertension) (Chronic) HLD (hyperlipidemia) (Chronic) Esophageal reflux (Chronic) Diaphragmatic hernia (Chronic) Type II diabetes mellitus, uncontrolled (Chronic) Coronary atherosclerosis of [place] coronary artery (Chronic) Unstable angina (Chronic) Renal insufficiency (Chronic) Cardiac pacemaker (Chronic) 12/14 Implantable Loop Recorder; 02/12/09 Removal of Loop Recorder; PPM Implant 05/2014 Ventricular tachycardia (Chronic) S/P PTCA (percutaneous transluminal coronary angioplasty) (Chronic) S/P CABG x 2 (Chronic) CABG with RUSH to LAD, SVG to Cx 06/17/05 Dr. Cotto; 06/25/05, Sternal Dehiscence strnal rewiring & debridement CHF (congestive heart failure) (Chronic) NSTEMI (non-ST elevated myocardial infarction) (Chronic) Cardiomyopathy (Chronic) Medical History: Medical History (Last Updated 06/04/17 @ 09:46 by Abby Suero) Ischemic cardiomyopathy (Chronic) I25.5 Right bundle branch block (Chronic) I45.10 Complete AV block, acquired (Chronic) I44.2 Old myocardial infarction (Chronic) I25.2 Acute on chronic combined systolic and diastolic congestive heart failure ( Chronic) I50.43 HTN (hypertension) (Chronic) I10 HLD (hyperlipidemia) (Chronic) E78.5 Type II diabetes mellitus, uncontrolled (Chronic) E11.65 Coronary atherosclerosis of [place] coronary artery (Chronic) I25.10 Renal insufficiency (Chronic) N28.9 Cardiac pacemaker (Chronic) Z95.0 12/14 Implantable Loop Recorder; 02/12/09 Removal of Loop Recorder; PPM Implant 05/2014 NSTEMI (non-ST elevated myocardial infarction) (Chronic) I21.4 Allergies Penicillins Allergy (Verified 08/04/17 18:34) Anaphylaxis rosuvastatin calcium [From Crestor] Allergy (Verified 08/05/17 00:18) legs hurt Djypmvz-Mma-Wjk Reductase Inhibitor Allergy (Verified 08/05/17 00:18) body aches amlodipine [From Norvasc] Adverse Reaction (Intermediate, Verified 08/05/17 00: 18) dizzy Home Medications: Ambulatory Orders Medication Instructions Recorded Clopidogrel Bisulfate [Plavix] 75 mg PO QHS 03/12/14 Folic Acid 5 mg PO QHS 03/12/14 Aspirin [Aspirin, Baby] 81 mg PO QHS 04/14/14 Multivitamins,Therapeutic 1 tab PO QHS 04/14/14 [Multivitamin] Ubidecarenone [Q-Sorb Co Q-10] 100 mg PO QHS 02/25/16 Carvedilol [Coreg (Beta David)] 3.125 mg PO BID #60 tab 02/27/16 Isosorbide Mononitrate [Monoket] 20 mg PO BID@0800,1500 #60 tab 03/07/16 amlodipine 5 mg tablet 5 mg PO QDAY tab 06/04/17 metformin ER 500 mg 500 mg PO DAILY 90 Days #90 06/04/17 tablet,extended release 24 hr nitroglycerin 0.4 mg sublingual 0.4 mg SUBLINGUAL Q5M PRN #25 tab 06/05/17 tablet furosemide 20 mg tablet 20 mg PO QDAY #30 tab 07/17/17 Surgical History: Surgical History (Last Updated 06/04/17 @ 09:46 by Abby Suero) Presence of coronary angioplasty implant and graft (Chronic) Z95.5 Cardiac cath left, 2005 with TAXUS MARIUM of left main stem & proximal OM1; Cardiac ath @ [facility] then PCI @ [facility] 08/11/13 MARIUM prox CX & MARIUM prox LAD S/P PTCA (percutaneous transluminal coronary angioplasty) (Chronic) Z98.61 S/P CABG x 2 (Chronic) Z95.1 CABG with RUSH to LAD, SVG to Cx 06/17/05 Dr. Cotto; 06/25/05, Sternal Dehiscence strnal rewiring & debridement Surgical History: cholecystectomy, and PCI to LMA graft Psychiatric History: No pertinent psych hx Lives: Spouse/ Significant Other Smoking Status: Former smoker Tobacco Use: Non-smoker Alcohol: Rare Drugs: None - *Family History Paternal Family History: Family History (Last Updated 06/04/17 @ 09:48 by Abby Suero) Father Myocardial infarction Hypertension Heart disease Mother Hypertension Emphysema of lung FH: brain aneurysm Daughter Afib History Items: Heart Disease Maternal Family History: Family History (Last Updated 06/04/17 @ 09:48 by Abby Suero) Father Myocardial infarction Hypertension Heart disease Mother Hypertension Emphysema of lung FH: brain aneurysm Daughter Afib History Items: No pertinent history Review of Systems Constitutional: Denies: Chills, Fever Eyes: Reports: Blurred vision HEENT: Denies: Difficulty Swallowing Cardiovascular: Denies: Chest Pressure Respiratory: Denies: Shortness of breath at rest Gastrointestinal: Denies: Nausea, Vomiting Genitourinary: Denies: Dysuria Musculoskeletal: Denies: Joint Pain Neurological: Denies: Confusion Psychiatric: Denies: Anxiety Hematologic/ Lymphatic: Denies: Easy Bruising Patient Problems: Active and Suspected Problems (Last Updated 06/04/17 @ 09:46 by Abby Suero) Abdominal pain (Acute) - Physical Exam General: Alert, Oriented x3, Cooperative Lungs: Normal air movement Cardiovascular: Regular rate Abdomen: Soft, Non-Distended, Tender - In the right inguinal region, no guarding or rebound, - - Positive tenderness palpation of the right testicle, no obvious hernia on exam Extremities: No clubbing, No cyanosis, No edema Neurological: Cranial nerves II-XII grossly intact Psych/Mental Status: Normal Affect Vital Signs Temp Pulse Resp BP Pulse Ox 97.2 F L 70 18 154/74 H 95 08/05/17 03:41 08/05/17 03:41 08/05/17 03:41 08/05/17 03:41 08/05/17 03:41 Oxygen Delivery Method Room Air Weight: 182 lb 8.684 oz Body Mass Index (BMI) 28.5 Intake and Output for Last 24 Hours 08/03/17 08/04/17 08/05/17 23:59 23:59 23:59 Intake Total 827 / 827 Balance 827 / 827 Laboratory Tests Past 24 Hrs 08/04/17 08/05/17 08/05/17 23:05 05:14 05:14 WBC 4.2 L RBC 3.92 L Hgb 11.6 L Hct 35.8 L MCV 91.3 MCH 29.6 MCHC 32.4 RDW 16.4 H RDW Differential 54.9 H Plt Count 263 MPV 9.8 Immature Gran % (Auto) 0.200 Neut % (Auto) 65.4 Lymph % (Auto) 20.3 [place] % (Auto) 11.1 H Eos % (Auto) 2.8 Baso % (Auto) 0.2 Absolute Neuts (auto) 2.8 Absolute Lymphs (auto) 0.86 Total Counted Not Reportable Sodium 142 Potassium 4.5 Chloride 106 Carbon Dioxide 28.0 Anion Gap 8 BUN 32 H Creatinine 2.52 H Estim Creat Clear Calc 21.49 Est GFR (MDRD) Af Amer 32 L Est GFR (MDRD) Non-Af 26 L BUN/Creatinine Ratio 12.7 Glucose 141 H Lactic Acid 0.6 Calcium 9.1 Phosphorus Magnesium Total Bilirubin Direct Bilirubin AST ALT Alkaline Phosphatase Total Protein Albumin Globulin PSA Screen 08/05/17 05:14 WBC RBC Hgb Hct MCV MCH MCHC RDW RDW Differential Plt Count MPV Immature Gran % (Auto) Neut % (Auto) Lymph % (Auto) [place] % (Auto) Eos % (Auto) Baso % (Auto) Absolute Neuts (auto) Absolute Lymphs (auto) Total Counted Sodium Potassium Chloride Carbon Dioxide Anion Gap BUN Creatinine Estim Creat Clear Calc Est GFR (MDRD) Af Amer Est GFR (MDRD) Non-Af BUN/Creatinine Ratio Glucose Lactic Acid Calcium Phosphorus 4.4 Magnesium 2.0 Total Bilirubin 1.20 H Direct Bilirubin 0.27 AST 13 L ALT 15 L Alkaline Phosphatase 51 Total Protein 6.2 L Albumin 3.5 Globulin 2.7 PSA Screen 3.84 POC Glucose 08/05/17 05:57 POC Glucose 149 H Assessment/Plan All Active Problems (Last Updated 06/04/17 @ 09:46 by Abby Suero) Abdominal pain (Acute) 82-year-old male with right lower abdomen/groin pain ?[address] abdomen pelvis done in the ER which did not show any acute findings. On exam no obvious right inguinal hernia, on my exam he did have tenderness in his right testicle however the UA was negative. Unknown etiology of his right abdominal/groin pain. No plans for any surgical intervention currently. Jannet Castellanos M.D. Pager: [phone] [facility] [address] [place] [address], [facility], [address] [place] [id number] Office: [phone] Code Visit Inpatient E&M: 00103 Init Hosp L1
[2017-08-05 09:17] VITALS: BP 134/66; PULSE 70; RESP 18; TEMP 36.9; O2SAT 95
[2017-08-05] MEDS: Isosorbide Mononitrate 20 MG Tablet PO ×2 (09:20→15:46)
[2017-08-05] MEDS: amLODIPine 5 MG Tablet PO (09:20)
[2017-08-05] MEDS: Furosemide 20 MG Tablet PO (09:20)
[2017-08-05] MEDS: Carvedilol 3.125 MG TABLET PO ×2 (09:20→22:08)
[2017-08-05] MEDS: Insulin Lispro 100 UNIT/ML INSULN.PEN SC ×2 (11:43→23:09)
[2017-08-05 11:51] LABS: Bedside Glucose 178 mg/dL (70-110)
--- NOTE | 2017-08-05 12:02 | CASEMGMT ---
RN CM NOTE. 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 was also in room, states they do not need any assistance at home, daughter is a nurse and lives with them. No dc needs identified. Carrie BOBBYN RN ACM
[2017-08-05] MEDS: Dicyclomine 10 MG Capsule PO (14:29)
[2017-08-05 15:11] VITALS: BP 129/61; PULSE 70; RESP 16; TEMP 36.4; O2SAT 96
--- NOTE | 2017-08-05 16:29 | CHAPLAIN ---
Type of Pastoral Visit _x__ Initial Visit ___ Follow-up Visit ___ On-call Visit ___ General Patient Visit ___ Spiritual Assessment ___ Family Conference ___ Bereavement ___ Rapid Response ___ Code Blue ___ Other (describe below) Pastoral Care Referral From _x__ Patient ___ Family ___ Nurse ___ Physician ___ Aircraft Engine Installer ___ Warehouse Administrator ___ Other (describe below) Sacrament/Intervention _x__ Active listening ___ Anointing ___ Adventism ___ Bereavement ___ Communion _x__ Linh exploration ___ _x__ Life review _x__ Prayer ___ Reconciliation ___ Sacrament of Sick ___ Supportive presence ___ Wedding ___ Other (describe below) Pastoral Comments
[2017-08-05 17:46] LABS: Bedside Glucose 117 mg/dL (70-110)
[2017-08-05 21:10] VITALS: BP 138/70; PULSE 72; RESP 20; TEMP 37; O2SAT 94
[2017-08-05] MEDS: Aspirin 81 MG TAB.CHEW PO (22:08)
[2017-08-05] MEDS: Folic Acid 1 MG Tablet 5 MG PO (22:08)
[2017-08-05] MEDS: Clopidogrel Bisulfate 75 MG Tablet PO (22:08)
[2017-08-05] MEDS: MELATONIN 10 MG TABLET PO (23:09)
[2017-08-05 23:20] LABS: Bedside Glucose 165 mg/dL (70-110)
[2017-08-06 02:50] VITALS: BP 141/70; PULSE 68; RESP 20; TEMP 36.6; O2SAT 96
[2017-08-06] MEDS: 0.9% Normal Saline 1,000 ML 75 ML IV (03:17)
--- NOTE | 2017-08-06 05:55 | RAD_ITS ---
STUDY: X-RAY CHEST REASON FOR EXAM: Male, 82 years old. Cough and shortness of breath. TECHNIQUE: PA and lateral views of the chest. COMPARISON: Comparison is made with prior study dated May 27, 2017. FINDINGS: Stable increased markings at the left lung base with blunting of the left costophrenic angle. This is in keeping with the pleural-parenchymal scarring. No new infiltrate is seen. Sternal cerclage wires and vascular clips are present from a prior sternotomy and coronary artery bypass graft procedure (CABG). A left-sided dual-chamber pacemaker is seen. Borderline cardiomegaly. Normal mediastinum and jose antonio. Normal visualized pulmonary arteries. There is atherosclerotic calcification of the aortic arch with tortuosity. There are degenerative changes of the visualized thoracic spine. Normal visualized ribs, clavicles, and shoulders. There is no demonstrated abnormality of the visualized soft tissue structures of the upper abdomen. RAD/Chest PA and Lateral IMPRESSION: Stable pleural parenchymal changes at the left lung base. No other abnormality is seen. Electronically Signed: Octavio Kurtz MD at 8:47 EDT Tel [phone], Service support ,
[2017-08-06] MEDS: Dicyclomine 10 MG Capsule PO (06:32)
[2017-08-06] MEDS: Heparin Injection (Vial) 5,000 UNIT/ML VIAL 5000 UNIT SC ×2 (06:32→14:12)
[2017-08-06] MEDS: oxyCODONE 5 MG Tablet PO (06:33)
--- NOTE | 2017-08-06 06:46 | NURSING ---
Patient showed this RN a medication list on his phone. When this RN started to go over medications the patient started to become uncertain about the list and said not to go from the list. Asked patient to have his bring in an updated list or the actual medication bottles to update home med list if needed.
[2017-08-06 06:55] LABS: Bedside Glucose 112 mg/dL (70-110)
[2017-08-06 08:06] VITALS: BP 138/80; PULSE 71; RESP 16; TEMP 36.4; O2SAT 97
--- NOTE | 2017-08-06 08:07 | PCM.CONS.U ---
Reason for Consult Date of Consultation: 08/06/17 Reason for Consultation: Abdominal pain and concern for kidney stone History of Present Illness: The patient is a 82 year old Male with a history of right abdominal pain and pain going down his groinhe thinks it feels just exactly like a kidney stone in the past, I looked at his CAT scan there is no hydronephrosis no secondary signs of a kidney stone no swelling no hydroureter no visible stone whatsoever he also has no hematuria. I do not think he has a stone on exam and history appears to have some sort of muscle strain or pulled groin muscle or ligament and the right inguinal canal. States that when he is lying still does not hurt but only hurts when he walks or ambulates or on exam when you push down on the right groin area is very tender. 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) Pneumonia (Chronic) Hypertensive heart disease without heart failure (Chronic) HTN (hypertension) (Chronic) HLD (hyperlipidemia) (Chronic) Esophageal reflux (Chronic) Diaphragmatic hernia (Chronic) Type II diabetes mellitus, uncontrolled (Chronic) 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) I50.43 HTN (hypertension) (Chronic) I10 HLD (hyperlipidemia) (Chronic) E78.5 Type II diabetes mellitus, uncontrolled (Chronic) E11.65 Coronary atherosclerosis of [place] coronary artery (Chronic) I25.10 Renal insufficiency (Chronic) N28.9 Cardiac pacemaker (Chronic) Z95.0 12/14 Implantable Loop Recorder; 02/12/09 Removal of Loop Recorder; PPM Implant 05/2014 NSTEMI (non-ST elevated myocardial infarction) (Chronic) I21.4 Allergies Penicillins Allergy (Verified 08/04/17 18:34) Anaphylaxis rosuvastatin calcium [From Crestor] Allergy (Verified 08/05/17 00:18) legs hurt Okzblce-Zog-Qvt Reductase Inhibitor Allergy (Verified 08/05/17 00:18) body aches amlodipine [From Norvasc] Adverse Reaction (Intermediate, Verified 08/05/17 00:18) dizzy Home Medications: Ambulatory Orders Medication Instructions Recorded Clopidogrel Bisulfate [Plavix] 75 mg PO QHS 03/12/14 Folic Acid 5 mg PO QHS 03/12/14 Aspirin [Aspirin, Baby] 81 mg PO QHS 04/14/14 Multivitamins,Therapeutic 1 tab PO QHS 04/14/14 [Multivitamin] Ubidecarenone [Q-Sorb Co Q-10] 100 mg PO QHS 02/25/16 Carvedilol [Coreg (Beta David)] 3.125 mg PO BID #60 tab 02/27/16 Isosorbide Mononitrate [Monoket] 20 mg PO BID@0800,1500 #60 tab 03/07/16 amlodipine 5 mg tablet 5 mg PO QDAY tab 06/04/17 metformin ER 500 mg 500 mg PO DAILY 90 Days #90 06/04/17 tablet,extended release 24 hr nitroglycerin 0.4 mg sublingual 0.4 mg SUBLINGUAL Q5M PRN #25 tab 06/05/17 tablet furosemide 20 mg tablet 20 mg PO QDAY #30 tab 07/17/17 Surgical History: Surgical History (Last Updated 06/04/17 @ 09:46 by Abby Suero) Presence of coronary angioplasty implant and graft (Chronic) Z95.5 Cardiac cath left, 2005 with TAXUS MARIUM of left main stem & proximal OM1; Cardiac ath @ [facility] then PCI @ [facility] 08/11/13 MARIUM prox CX & MARIUM prox LAD S/P PTCA (percutaneous transluminal coronary angioplasty) (Chronic) Z98.61 S/P CABG x 2 (Chronic) Z95.1 CABG with RUSH to LAD, SVG to Cx 06/17/05 Dr. Cotto; 06/25/05, Sternal Dehiscence strnal rewiring & debridement Surgical History: cholecystectomy, and PCI to LMA graft Psychiatric History: No pertinent psych hx Lives: Spouse/ Significant Other Smoking Status: Former smoker Tobacco Use: Non-smoker Alcohol: Rare Drugs: None - *Family History Paternal Family History: Family History (Last Updated 06/04/17 @ 09:48 by Abby Suero) Father Myocardial infarction Hypertension Heart disease Mother Hypertension Emphysema of lung FH: brain aneurysm Daughter Afib History Items: Heart Disease Maternal Family History: Family History (Last Updated 06/04/17 @ 09:48 by Abby Suero) Father Myocardial infarction Hypertension Heart disease Mother Hypertension Emphysema of lung FH: brain aneurysm Daughter Afib History Items: No pertinent history Review of Systems Constitutional: Denies: Chills, Fever, Weight Change HEENT: Denies: Head Aches, Sinus Congestion, Sinus Drainage Cardiovascular: Denies: Chest Pain, Palpitations Respiratory: Denies: Cough, Shortness of breath at rest, Sputum production Gastrointestinal: Denies: Abdominal Pain, Nausea, Vomiting Genitourinary: Denies: Dysuria Musculoskeletal: Reports: Joint Pain, Joint Tenderness Skin: Denies: Rash, Wounds Neurological: Denies: Numbness, Tingling, Focal weakness Psychiatric: Denies: Anxiety, Depression, Homicidal Ideations, Suicidal Ideations Hematologic/ Lymphatic: Denies: Easy Bruising, Easy Bleeding Physical Exam - Physical Exam Vital Signs Temp 97.9 F 08/06/17 02:50 Pulse 68 08/06/17 02:50 Resp 20 H 08/06/17 02:50 BP 141/70 H 08/06/17 02:50 Pulse Ox 96 08/06/17 02:50 Intake & Output 08/04/17 08/05/17 08/06/17 23:59 23:59 23:59 Intake Total 2692 / 2692 714 / 714 Output Total 1200 / 1200 425 / 425 Balance 1492 / 1492 289 / 289 Weight: 82.8 kg Intake: Oral 1160 / 1160 200 / 200 IV fluid/meds 1532 / 1532 514 / 514 Output: Urine 1200 / 1200 425 / 425 Other: Number of Voids 1 General: Alert, Oriented x3 HEENT: Atraumatic Oral: Moist Mucosa Cardiovascular: Regular rate Abdomen: Bowel Sounds Present, Soft, - - Tender and right groin and inguinal area on exam Rectal: Exam deferred Assessment/Plan All Active Problems (Last Updated 06/04/17 @ 09:46 by Abby Suero) Abdominal pain (Acute) 82-year-old male who has I suspect some sort of muscle skeletal pain pulled groin or ligament in the right inguinal area on CAT scan completely clear no sign of a hernia no sign of a kidney stone. Urine test is clear. Call me with questions.
[2017-08-06] MEDS: Isosorbide Mononitrate 20 MG Tablet PO (08:09)
--- NOTE | 2017-08-06 08:11 | CON.PCM_ITS ---
Reason for Consult Date of Consultation: 08/06/17 Reason for Consultation: Abdominal pain and concern for kidney stone History of Present Illness: The patient is a 82 year old Male with a history of right abdominal pain and pain going down his groinhe thinks it feels just exactly like a kidney stone in the past, I looked at his CAT scan there is no hydronephrosis no secondary signs of a kidney stone no swelling no hydroureter no visible stone whatsoever he also has no hematuria. I do not think he has a stone on exam and history appears to have some sort of muscle strain or pulled groin muscle or ligament and the right inguinal canal. States that when he is lying still does not hurt but only hurts when he walks or ambulates or on exam when you push down on the right groin area is very tender. 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) Acute on chronic combined systolic and diastolic congestive heart failure ( Chronic) Pneumonia (Chronic) Hypertensive heart disease without heart failure (Chronic) HTN (hypertension) (Chronic) HLD (hyperlipidemia) (Chronic) Esophageal reflux (Chronic) Diaphragmatic hernia (Chronic) Type II diabetes mellitus, uncontrolled (Chronic) Coronary atherosclerosis of [place] coronary artery (Chronic) Unstable angina (Chronic) Renal insufficiency (Chronic) Cardiac pacemaker (Chronic) 12/14 Implantable Loop Recorder; 02/12/09 Removal of Loop Recorder; PPM Implant 05/2014 Ventricular tachycardia (Chronic) S/P PTCA (percutaneous transluminal coronary angioplasty) (Chronic) S/P CABG x 2 (Chronic) CABG with RUSH to LAD, SVG to Cx 06/17/05 Dr. Cotto; 06/25/05, Sternal Dehiscence strnal rewiring & debridement CHF (congestive heart failure) (Chronic) NSTEMI (non-ST elevated myocardial infarction) (Chronic) Cardiomyopathy (Chronic) Medical History: Medical History (Last Updated 06/04/17 @ 09:46 by Abby Suero) Ischemic cardiomyopathy (Chronic) I25.5 Right bundle branch block (Chronic) I45.10 Complete AV block, acquired (Chronic) I44.2 Old myocardial infarction (Chronic) I25.2 Acute on chronic combined systolic and diastolic congestive heart failure ( Chronic) I50.43 HTN (hypertension) (Chronic) I10 HLD (hyperlipidemia) (Chronic) E78.5 Type II diabetes mellitus, uncontrolled (Chronic) E11.65 Coronary atherosclerosis of [place] coronary artery (Chronic) I25.10 Renal insufficiency (Chronic) N28.9 Cardiac pacemaker (Chronic) Z95.0 12/14 Implantable Loop Recorder; 02/12/09 Removal of Loop Recorder; PPM Implant 05/2014 NSTEMI (non-ST elevated myocardial infarction) (Chronic) I21.4 Allergies Penicillins Allergy (Verified 08/04/17 18:34) Anaphylaxis rosuvastatin calcium [From Crestor] Allergy (Verified 08/05/17 00:18) legs hurt Unsuyrw-Hfn-Ofa Reductase Inhibitor Allergy (Verified 08/05/17 00:18) body aches amlodipine [From Norvasc] Adverse Reaction (Intermediate, Verified 08/05/17 00: 18) dizzy Home Medications: Ambulatory Orders Medication Instructions Recorded Clopidogrel Bisulfate [Plavix] 75 mg PO QHS 03/12/14 Folic Acid 5 mg PO QHS 03/12/14 Aspirin [Aspirin, Baby] 81 mg PO QHS 04/14/14 Multivitamins,Therapeutic 1 tab PO QHS 04/14/14 [Multivitamin] Ubidecarenone [Q-Sorb Co Q-10] 100 mg PO QHS 02/25/16 Carvedilol [Coreg (Beta David)] 3.125 mg PO BID #60 tab 02/27/16 Isosorbide Mononitrate [Monoket] 20 mg PO BID@0800,1500 #60 tab 03/07/16 amlodipine 5 mg tablet 5 mg PO QDAY tab 06/04/17 metformin ER 500 mg 500 mg PO DAILY 90 Days #90 06/04/17 tablet,extended release 24 hr nitroglycerin 0.4 mg sublingual 0.4 mg SUBLINGUAL Q5M PRN #25 tab 06/05/17 tablet furosemide 20 mg tablet 20 mg PO QDAY #30 tab 07/17/17 Surgical History: Surgical History (Last Updated 06/04/17 @ 09:46 by Abby Suero) Presence of coronary angioplasty implant and graft (Chronic) Z95.5 Cardiac cath left, 2005 with TAXUS MARIUM of left main stem & proximal OM1; Cardiac ath @ [facility] then PCI @ [facility] 08/11/13 MARIUM prox CX & MARIUM prox LAD S/P PTCA (percutaneous transluminal coronary angioplasty) (Chronic) Z98.61 S/P CABG x 2 (Chronic) Z95.1 CABG with RUSH to LAD, SVG to Cx 06/17/05 Dr. Cotto; 06/25/05, Sternal Dehiscence strnal rewiring & debridement Surgical History: cholecystectomy, and PCI to LMA graft Psychiatric History: No pertinent psych hx Lives: Spouse/ Significant Other Smoking Status: Former smoker Tobacco Use: Non-smoker Alcohol: Rare Drugs: None - *Family History Paternal Family History: Family History (Last Updated 06/04/17 @ 09:48 by Abby Suero) Father Myocardial infarction Hypertension Heart disease Mother Hypertension Emphysema of lung FH: brain aneurysm Daughter Afib History Items: Heart Disease Maternal Family History: Family History (Last Updated 06/04/17 @ 09:48 by Abby Suero) Father Myocardial infarction Hypertension Heart disease Mother Hypertension Emphysema of lung FH: brain aneurysm Daughter Afib History Items: No pertinent history Review of Systems Constitutional: Denies: Chills, Fever, Weight Change HEENT: Denies: Head Aches, Sinus Congestion, Sinus Drainage Cardiovascular: Denies: Chest Pain, Palpitations Respiratory: Denies: Cough, Shortness of breath at rest, Sputum production Gastrointestinal: Denies: Abdominal Pain, Nausea, Vomiting Genitourinary: Denies: Dysuria Musculoskeletal: Reports: Joint Pain, Joint Tenderness Skin: Denies: Rash, Wounds Neurological: Denies: Numbness, Tingling, Focal weakness Psychiatric: Denies: Anxiety, Depression, Homicidal Ideations, Suicidal Ideations Hematologic/ Lymphatic: Denies: Easy Bruising, Easy Bleeding Physical Exam - Physical Exam Vital Signs Temp 97.9 F 08/06/17 02:50 Pulse 68 08/06/17 02:50 Resp 20 H 08/06/17 02:50 BP 141/70 H 08/06/17 02:50 Pulse Ox 96 08/06/17 02:50 Intake & Output 08/04/17 08/05/17 08/06/17 23:59 23:59 23:59 Intake Total 2692 / 2692 714 / 714 Output Total 1200 / 1200 425 / 425 Balance 1492 / 1492 289 / 289 Weight: 82.8 kg Intake: Oral 1160 / 1160 200 / 200 IV fluid/meds 1532 / 1532 514 / 514 Output: Urine 1200 / 1200 425 / 425 Other: Number of Voids 1 General: Alert, Oriented x3 HEENT: Atraumatic Oral: Moist Mucosa Cardiovascular: Regular rate Abdomen: Bowel Sounds Present, Soft, - - Tender and right groin and inguinal area on exam Rectal: Exam deferred Assessment/Plan All Active Problems (Last Updated 06/04/17 @ 09:46 by Abby Suero) Abdominal pain (Acute) 82-year-old male who has I suspect some sort of muscle skeletal pain pulled groin or ligament in the right inguinal area on CAT scan completely clear no sign of a hernia no sign of a kidney stone. Urine test is clear. Call me with questions.
--- NOTE | 2017-08-06 08:17 | NURSING ---
pt very frustrated this morning. per pt Dr. Steiner said there is no stone and he can go home. no discharge orders. pt insisting on leaving. currently hep locked because he doesn't want the fluids hooked back up. dr. wright paged
--- NOTE | 2017-08-06 09:52 | CASEMGMT ---
CRYSTAL FRANKS completed LEZAMA with patient. Patient signed notice without letting RN TINY review notice with him. RN TINY provided copy of signed LEZAMA form to the patient along with Inpatient vs Outpatient information packet. Patient upset and wants to speak with doctor to know what's causing his pain. CRYSTAL FRANKS updated charge nurse Anabela. Signed LEZAMA for filed on chart.
[2017-08-06] MEDS: Furosemide 20 MG Tablet PO (09:53)
[2017-08-06] MEDS: amLODIPine 5 MG Tablet PO (09:53)
[2017-08-06] MEDS: Carvedilol 3.125 MG TABLET PO (09:53)
--- NOTE | 2017-08-06 11:57 | PCM.PROGNOTE ---
Patient Problems: Active and Suspected Problems (Last Updated 06/04/17 @ 09:46 by Abby Suero) Abdominal pain (Acute) Subjective: Reviewed Dr. Steiner's consult....no stone. Pt is very painful trying to sit up in bed. He is having groin and upper anterior thigh pain as well as r side iliac crest pain and painful R Lumbar paravertebral muscles. - Physical Exam Vital Signs Temp Pulse Resp BP Pulse Ox 97.5 F L 71 16 138/80 H 97 08/06/17 08:06 08/06/17 08:06 08/06/17 08:06 08/06/17 08:06 08/06/17 08:06 Oxygen Delivery Method Room Air Weight: 182 lb 8.684 oz Body Mass Index (BMI) 28.5 Intake and Output for Last 24 Hours 08/04/17 08/05/17 08/06/17 23:59 23:59 23:59 Intake Total 2692 / 2692 714 / 714 Output Total 1200 / 1200 425 / 425 Balance 1492 / 1492 289 / 289 POC Glucose 08/06/17 08/05/17 08/05/17 06:30 23:07 17:35 POC Glucose 112 H 165 H 117 H Medical Necessity - Tobacco Use Smoking Status: Former smoker Tobacco Use: Non-smoker Assessment/Plan All Active Problems (Last Updated 06/04/17 @ 09:46 by Abby Suero) Abdominal pain (Acute)
[2017-08-06] MEDS: Insulin Lispro 100 UNIT/ML INSULN.PEN SC ×2 (12:10→16:49)
[2017-08-06] MEDS: Gabapentin 100 MG Capsule 200 MG PO (12:11)
[2017-08-06] MEDS: predniSONE 20 MG Tablet 60 MG PO (12:11)
[2017-08-06 14:00] VITALS: BP 134/65; PULSE 85; RESP 18; TEMP 36.9; O2SAT 94
[2017-08-06 14:31] LABS: Bedside Glucose 155 mg/dL (70-110)
--- NOTE | 2017-08-06 16:08 | NURSING ---
pt stated pain is still there but definitely getting better. able to change position and ambulate without excrutiating pain. dr. wright notified
[2017-08-06 17:11] LABS: Bedside Glucose 193 mg/dL (70-110)
--- NOTE | 2017-08-06 18:12 | PCM.DC ---
- Discharge Diagnoses Current Active Problems: Current Active and Chronic Problems (Last Updated 06/04/17 @ 09:46 by Abby Suero) Abdominal pain (Acute) You will use the following diet at home:: Other - Resume previous diet Your food should be the consistency of: Regular Your liquids should be the consistency of: Regular/Thin Discharge Activity: - - no bending or twisting. No lifting more than 5 lbs. Limit riding in the car to short distances for the next 10-14 days. Lifting Restrictions: no more than 5 lbs Call your doctor if you observe: Fever of 101 or Higher, Inability to urinate, Inability to have a bowel movement, Shortness of breath, Dizziness, Fainting spells, Swelling in the ankles, Chest pain, Uncontrolled pain, - - fecal or urinary incontinence, weakness in your legs, falls Additional Instructions: It is possible that you just irriated your back by riding in the back seat of a car and going over bumps. Most everyone your age has some arthritis in theior back. I think the pain is coming from compression of the nerves into the right leg that come from the back. It got better with Gabapentin and this only really treats nerve pain. I am giving you a prescription for Gabapentin and also Prednisone. The prednisone is a steroid and they are powerful anti-inflammatories....they will decrease the swelling around the nerve root. The steroids will be tapered over the next 10 days. If the pain comes back after the steroids are finished you will likely need an MRI of your. Lumbar spine and a referral to a pain management doc for a possible epidural injection. I will send a copy of the discharge instruction and the discharge summary to Dr. Tuttle. The PSA was normal. Pending Tests on Discharge: none Allergies/Adverse Reactions: Allergies Penicillins Allergy (Verified 08/04/17 18:34) Anaphylaxis rosuvastatin calcium [From Crestor] Allergy (Verified 08/05/17 00:18) legs hurt Jrejthf-Vvp-Xvl Reductase Inhibitor Allergy (Verified 08/05/17 00:18) body aches amlodipine [From Norvasc] Adverse Reaction (Intermediate, Verified 08/05/17 00:18) dizzy Medications to take at Discharge Clopidogrel Bisulfate [Plavix] 75 mg PO QHS 03/12/14 Folic Acid 5 mg PO QHS 03/12/14 Aspirin [Aspirin, Baby] 81 mg PO QHS 04/14/14 Multivitamins,Therapeutic [Multivitamin] 1 tab PO QHS 04/14/14 Ubidecarenone [Q-Sorb Co Q-10] 100 mg PO QHS 02/25/16 Carvedilol [Coreg (Beta David)] 3.125 mg PO BID #60 tab 02/27/16 Isosorbide Mononitrate [Monoket] 20 mg PO BID@0800,1500 #60 tab 03/07/16 amlodipine 5 mg tablet 5 mg PO QDAY tab 06/04/17 metformin ER 500 mg tablet,extended release 24 hr 500 mg PO DAILY 90 Days #90 06/04/17 nitroglycerin 0.4 mg sublingual tablet 0.4 mg SUBLINGUAL Q5M PRN #25 tab 06/05/17 furosemide 20 mg tablet 20 mg PO QDAY #30 tab 07/17/17 Gabapentin [Neurontin] 100 mg PO TID #100 cap 08/06/17 Oxycodone [Oxyir] 5 - 10 mg PO Q4H PRN PRN 7 Days #30 tab 08/06/17 Prednisone 20 mg PO DAILY #16 tab 08/06/17 The following prescriptions were given: Oxycodone [Oxyir] 5 - 10 mg PO Q4H PRN PRN 7 Days #30 tab PRN Reason: Severe Pain () Prednisone 20 mg PO DAILY #16 tab Gabapentin [Neurontin] 100 mg PO TID #100 cap Primary Care Physician: Salima Tuttle MD [Primary Care Provider] - Please follow up with your Primary Care Physician in: 7-10 days Proposed Discharge Date: 08/06/17
--- NOTE | 2017-08-06 18:23 | DCINST_ITS ---
- Discharge Diagnoses Current Active Problems: Current Active and Chronic Problems (Last Updated 06/04/17 @ 09:46 by Abby Suero) Abdominal pain (Acute) You will use the following diet at home:: Other - Resume previous diet Your food should be the consistency of: Regular Your liquids should be the consistency of: Regular/Thin Discharge Activity: - - no bending or twisting. No lifting more than 5 lbs. Limit riding in the car to short distances for the next 10-14 days. Lifting Restrictions: no more than 5 lbs Call your doctor if you observe: Fever of 101 or Higher, Inability to urinate, Inability to have a bowel movement, Shortness of breath, Dizziness, Fainting spells, Swelling in the ankles, Chest pain, Uncontrolled pain, - - fecal or urinary incontinence, weakness in your legs, falls Additional Instructions: It is possible that you just irriated your back by riding in the back seat of a car and going over bumps. Most everyone your age has some arthritis in theior back. I think the pain is coming from compression of the nerves into the right leg that come from the back. It got better with Gabapentin and this only really treats nerve pain. I am giving you a prescription for Gabapentin and also Prednisone. The prednisone is a steroid and they are powerful anti-inflammatories....they will decrease the swelling around the nerve root. The steroids will be tapered over the next 10 days. If the pain comes back after the steroids are finished you will likely need an MRI of your. Lumbar spine and a referral to a pain management doc for a possible epidural injection. I will send a copy of the discharge instruction and the discharge summary to Dr. Tuttle. The PSA was normal. Pending Tests on Discharge: none Allergies/Adverse Reactions: Allergies Penicillins Allergy (Verified 08/04/17 18:34) Anaphylaxis rosuvastatin calcium [From Crestor] Allergy (Verified 08/05/17 00:18) legs hurt Iwdyvcp-Qpv-Lov Reductase Inhibitor Allergy (Verified 08/05/17 00:18) body aches amlodipine [From Norvasc] Adverse Reaction (Intermediate, Verified 08/05/17 00: 18) dizzy Medications to take at Discharge Clopidogrel Bisulfate [Plavix] 75 mg PO QHS 03/12/14 Folic Acid 5 mg PO QHS 03/12/14 Aspirin [Aspirin, Baby] 81 mg PO QHS 04/14/14 Multivitamins,Therapeutic [Multivitamin] 1 tab PO QHS 04/14/14 Ubidecarenone [Q-Sorb Co Q-10] 100 mg PO QHS 02/25/16 Carvedilol [Coreg (Beta David)] 3.125 mg PO BID #60 tab 02/27/16 Isosorbide Mononitrate [Monoket] 20 mg PO BID@0800,1500 #60 tab 03/07/16 amlodipine 5 mg tablet 5 mg PO QDAY tab 06/04/17 metformin ER 500 mg tablet,extended release 24 hr 500 mg PO DAILY 90 Days #90 nitroglycerin 0.4 mg sublingual tablet 0.4 mg SUBLINGUAL Q5M PRN #25 tab furosemide 20 mg tablet 20 mg PO QDAY #30 tab 07/17/17 Gabapentin [Neurontin] 100 mg PO TID #100 cap 08/06/17 Oxycodone [Oxyir] 5 - 10 mg PO Q4H PRN PRN 7 Days #30 tab 08/06/17 Prednisone 20 mg PO DAILY #16 tab 08/06/17 The following prescriptions were given: Oxycodone [Oxyir] 5 - 10 mg PO Q4H PRN PRN 7 Days #30 tab PRN Reason: Severe Pain () Prednisone 20 mg PO DAILY #16 tab Gabapentin [Neurontin] 100 mg PO TID #100 cap Primary Care Physician: Salima Tuttle MD [Primary Care Provider] - Please follow up with your Primary Care Physician in: 7-10 days Proposed Discharge Date: 08/06/17
[2017-08-06 18:30] VITALS: BP 135/59; PULSE 70; RESP 16; TEMP 36.6; O2SAT 97
--- NOTE | 2017-08-06 18:33 | PCM.DC.SUM ---
Discharge Date and Diagnosis Date of Admission: 08/04/17 Date of Discharge: 08/06/17 - Primary Discharge Diagnosis Active and Suspected Problems (Last Updated 06/04/17 @ 09:46 by Abby Suero) Radiculitis of the right leg (Acute) - Secondary Discharge Diagnosis Chronic Problems (Last Updated 06/04/17 @ 09:46 by Abby Suero) History of ventricular tachycardia (Chronic) Type 2 diabetes mellitus (Chronic) Prostatic enlargement (Chronic) with a normal PSA Chronic renal failure, stage 4 (severe) (Chronic) Chronic combined systolic and diastolic CHF (congestive heart failure) (Chronic) History of nephrolithiasis (Chronic) Ischemic cardiomyopathy (Chronic) - EF is 30% 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 Cotto; 06/25/05, Sternal Dehiscence strnal rewiring & debridement Hospital Course and Treatment Imaging Results: Clinical Impression(s) from Imaging Studies Abdomen/Pelvis CT 08/04/17 18:53 IMPRESSION: No acute abnormality identified in the abdomen or pelvis. Stable rounded atelectasis at the left lung base. Stable splenomegaly. Stable bilateral cortical renal cysts. Stable prostatomegaly with heterogeneity. Correlation with PSA is recommended. at 1949 Reported and signed by: Mariia Orlando MD Electronically Signed: Mariia Orlando MD at 19:47 EDT Tel , Service support , Hip/Pelvis X-Ray 08/05/17 07:13 IMPRESSION: Mild degree of both degenerative changes of the hip joints bilaterally. Electronically Signed: Octavio Kurtz MD at 12:59 EDT Tel [phone], Service support , Chest X-Ray 08/06/17 05:55 IMPRESSION: Stable pleural parenchymal changes at the left lung base. No other abnormality is seen. Electronically Signed: Octavio Kurtz MD at 8:47 EDT Tel [phone], Service support , Dr. Castellanos -general surgery Dr. Sundar Steiner-neurology Operations: None Procedures: None Summary of Care Provided: Mr. Otto is an 82-year-old male with an extensive past medical history that includes ischemic cardiomyopathy, coronary artery disease with stents, right bundle branch block, complete heart block, combined systolic and diastolic congestive heart failure, hypertension, hyperlipidemia, GERD, diaphragmatic hernia, diabetes mellitus type 2, chronic renal failure stage III, cardiac pacemaker, ventricular tachycardia, and history of CABG ?2 vessels in 2005 who presented to the ED at [facility] on 08/04/2017 complaining of right lower quadrant abdominal pain. Vital signs at presentation to the emergency room were temperature 97.8, pulse rate 76, blood pressure 116/66, respiratory rate 16 and he was 99% saturated on room air. White blood cell count was normal at 6.1 with an unremarkable differential. Hemoglobin and platelets were within normal limits. BMP was remarkable for a potassium of 5.0, BUN of 29 and a creatinine of 2.45. 2.45 is within his baseline over the past 5 months. UA showed 0-5 WBCs, 0 RBCs, negative nitrite and there were 10-[address] scan of the abdomen and pelvis showed no acute abnormality. He was admitted to the hospital for observation and Dr. Castellanos was consulted for surgical opinion and found nothing surgical that would cause his symptoms. He was also seen by Dr. Steiner who ruled out kidney stones and thought the pain may be musculoskeletal. On PE the pain was severe and he looked very uncomfortable. The pain radiated from the R buttock/iliac crest laterally around the hip and into the R groin. He had pain in the upper right thigh. the pain increased with bending and twisting. He had a very difficult time sitting up in bed. His gait was antalgic. He was given 60 mg of Predisone and Gabapentin 200 mg and was re-examined in 4 hours and the pain was much better. He was able to get dressed and ambulate with much less discomfort. I feel that the pain is due to nerve compression. He then related to me that he had been riding in the back seat of a car to a and it was very uncomfortable and a bumpy trip. the pain he had at admission increased when riding in the car. He was given a RX for Gabapentin and a tapering course of prednisone over the next 10 days. If the pain does not resolve completely or if it resolves and then comes back after the steroids are discontinued would image the Lumbar spine and possibly refer to pain management for an epidural. He was instructed to monitor his weight daily while on prednisone and if it starts increasing by 1-2 pounds daily to take an extra dose of Lasix in the afternoon until his weight returns to baseline. He will follow-up with Dr. Palumbo in 7-10 days. This note was generated with [employer] dictation software. It may contain incorrect words, spelling, and punctuation that were not noted in checking the note before signing. Discharge Activity: - - no bending or twisting. No lifting more than 5 lbs. Limit riding in the car to short distances for the next 10-14 days. Call your doctor if you observe: Fever of 101 or Higher, Inability to urinate, Inability to have a bowel movement, Shortness of breath, Dizziness, Fainting spells, Swelling in the ankles, Chest pain, Uncontrolled pain, - - fecal or urinary incontinence, weakness in your legs, falls Home Medications: Medications to take at Discharge Clopidogrel Bisulfate [Plavix] 75 mg PO QHS 03/12/14 Folic Acid 5 mg PO QHS 03/12/14 Aspirin [Aspirin, Baby] 81 mg PO QHS 04/14/14 Multivitamins,Therapeutic [Multivitamin] 1 tab PO QHS 04/14/14 Ubidecarenone [Q-Sorb Co Q-10] 100 mg PO QHS 02/25/16 Carvedilol [Coreg (Beta David)] 3.125 mg PO BID #60 tab 02/27/16 Isosorbide Mononitrate [Monoket] 20 mg PO BID@0800,1500 #60 tab 03/07/16 amlodipine 5 mg tablet 5 mg PO QDAY tab 06/04/17 metformin ER 500 mg tablet,extended release 24 hr 500 mg PO DAILY 90 Days #90 06/04/17 nitroglycerin 0.4 mg sublingual tablet 0.4 mg SUBLINGUAL Q5M PRN #25 tab 06/05/17 furosemide 20 mg tablet 20 mg PO QDAY #30 tab 07/17/17 Gabapentin [Neurontin] 100 mg PO TID #100 cap 08/06/17 Oxycodone [Oxyir] 5 - 10 mg PO Q4H PRN PRN 7 Days #30 tab 08/06/17 Prednisone 20 mg PO DAILY #16 tab 08/06/17 Following Prescrptions Were Given to Patient: Oxycodone [Oxyir] 5 - 10 mg PO Q4H PRN PRN 7 Days #30 tab PRN Reason: Severe Pain () Prednisone 20 mg PO DAILY #16 tab Gabapentin [Neurontin] 100 mg PO TID #100 cap Primary Care Physician: Salima Tuttle MD [Primary Care Provider] - Please follow up with your Primary Care Physician in: 7-10 days Disposition: Home Minutes spent on discharge:: 35 Patient Condition:: Good Medical Necessity - Tobacco Use Smoking Status: Former smoker Tobacco Use: Non-smoker Meaningful Use Info Meaningful Use Diagnoses (Choose all that apply): None applicable Code Visit Inpatient E&M: 17864 Disch Hosp
== END 2017-08-06 18:48 | disposition home or self-care (01) ==
LOC: ED 22:08 → MS2 23:18
PROVIDERS: Admitting Provider Internal Medicine; Emergency Provider Emergency Medicine; Family Provider Family Medicine; PCP Family Medicine; Visit Provider Internal Medicine
DX: M54.10 Radiculopathy, site unspecified (principal); R10.31 Right lower quadrant pain; I13.0 Hypertensive heart and chronic kidney disease with heart failure and stage 1 through stage 4 chronic kidney disease, or unspecified chronic kidney disease; I50.42 Chronic combined systolic (congestive) and diastolic (congestive) heart failure; N18.4 Chronic kidney disease, stage 4 (severe); E11.22 Type 2 diabetes mellitus with diabetic chronic kidney disease; N40.0 Benign prostatic hyperplasia without lower urinary tract symptoms; E78.5 Hyperlipidemia, unspecified; I25.10 Atherosclerotic heart disease of native coronary artery without angina pectoris; K21.9 Gastro-esophageal reflux disease without esophagitis; I25.5 Ischemic cardiomyopathy; E11.65 Type 2 diabetes mellitus with hyperglycemia; I25.2 Old myocardial infarction; Z79.899 Other long term (current) drug therapy; Z79.02 Long term (current) use of antithrombotics/antiplatelets; Z79.82 Long term (current) use of aspirin; Z95.810 Presence of automatic (implantable) cardiac defibrillator; Z95.1 Presence of aortocoronary bypass graft; Z87.891 Personal history of nicotine dependence; Z12.5 Encounter for screening for malignant neoplasm of prostate
CPT/HCPCS: 36415; 71046; 73521; 74176; 80048; 80076; 81001; 82962; 83605; 83735; 84100; 84153; 85025; 96361; 96372; 96374; 96375; 96376; 97802; 99218; 99282; J7030; A4216; G0103; G0378; J2405

== ENCOUNTER → 2017-08-10 10:51 | Outpatient (CLI) | payer MEDICARE, SELFPAY ==
--- NOTE | 2017-08-10 10:51 | DT_ITS ---
This patient was seen during an EMR downtime August 10, 2017 - August 17, 2017. This patient may have a combination of paper and electronic documentation or all paper documentation. All documentation is viewable within the e-chart portion of [facility] for each patient visit.
--- NOTE | 2017-08-10 10:55 | RAD_ITS ---
STUDY: X-RAY - LUMBAR SPINE REASON FOR EXAM: Male, 82 years old. Low back and right hip pain. TECHNIQUE: 5 view(s) of the lumbar spine were obtained. COMPARISON: None FINDINGS: There is generalized osteopenia. Normal lumbar lordosis. There is no substantial scoliosis. There is a normal alignment of the vertebrae. Normal vertebral bodies and endplates. There is multilevel intervertebral disc space narrowing with substantial osteophyte formation most marked at L2-3 and L3-4. There is diffuse facet sclerosis. There is marked vascular calcification. RAD/L/S Spine Min 4 Views IMPRESSION: Osteopenia with diffuse lumbar spondylosis as described. Electronically Signed: Mariusz Melgoza MD at 17:26 EDT , Service support ,
== END ==
PROVIDERS: Family Provider Family Medicine; PCP Family Medicine; Visit Provider Family Medicine
DX: M25.551 Pain in right hip (principal)
CPT/HCPCS: 72110

== ENCOUNTER 2017-08-14 18:20 | Emergency (ER) | payer MEDICARE, SELFPAY ==
--- NOTE | 2017-08-14 18:20 | DT_ITS ---
This patient was seen during an EMR downtime August 10, 2017 - August 17, 2017. This patient may have a combination of paper and electronic documentation or all paper documentation. All documentation is viewable within the e-chart portion of [facility] for each patient visit.
[2017-08-18 03:30] LABS: Anion Gap 7 (5-15); BUN 58 mg/dL (7-18); BUN/Creat Ratio 26.2 RATIO (10-20); Calcium,Total 10.2 mg/dL (8.5-10.1); Chloride 103 mmol/L (98-107); Creatinine, Serum 2.21 mg/dL (0.70-1.30); EST Glomerular Filtration Rate 31 mL/min (>60); Est Glom Filt Rate - Afr Amer 38 mL/min (>60); Glucose 261 mg/dL (74-106); Potassium 4.5 mmol/L (3.5-5.1); Sodium Level 138 mmol/L (136-145)
[2017-08-18 04:23] LABS: Differential Indicated SCAN CRITERIA MET; Eosinophils% 0.1 % (0-5); Hematocrit 39.4 % (40-54); Hemoglobin 12.9 g/dl (13.0-16.5); Lymphocyte % 6.1 % (19-41); Mean Corp Hgb Conc 32.7 g/gl (32-36); Mean Corpuscular Volume 91.6 fL (80-94); Monocyte% 3.3 % (0-10); Neutrophil % 88.8 % (47-70); POSITIVE COUNT YES; POSITIVE DIFFERENTIAL YES; POSITIVE MORPHOLOGY NO; Platelet Count 342 K/mm3 (150-450)
[2017-08-18 04:24] LABS: Absolute Lymphocyte Count 0.43 X10^3/ul (0.83-4.51); Absolute Neutrophil Count 6.2 X10^3/uL (2.0-7.7); Basophil# 0.03 X10^3/uL; Basophil% 0.4 % (0-1); Eosinophil# 0.01 X10^3/uL; Lymphocyte # 0.43 X10^3/ul (4.0); Monocyte# 0.23 X10^3/uL; Neutrophil # 6.24 X10^3/uL (2.7-7.7)
[2017-08-18 04:25] LABS: Anisocytosis RARE; Differential Comment SCAN; Macrocytosis RARE; Platelet Estimate ADEQUATE (ADEQ)
[2017-08-18 04:26] LABS: Platelet Morphology LARGE
== END 2017-08-14 20:48 | disposition home or self-care (01) ==
LOC: ED 08-15 12:55
PROVIDERS: Emergency Provider Emergency Medicine; Family Provider Family Medicine; PCP Family Medicine
DX: R10.31 Right lower quadrant pain (principal); I25.10 Atherosclerotic heart disease of native coronary artery without angina pectoris; I25.2 Old myocardial infarction; I10 Essential (primary) hypertension; E11.9 Type 2 diabetes mellitus without complications; N40.1 Benign prostatic hyperplasia with lower urinary tract symptoms; R35.0 Frequency of micturition; R33.8 Other retention of urine; Z95.0 Presence of cardiac pacemaker; Z95.5 Presence of coronary angioplasty implant and graft
CPT/HCPCS: 36415; 80048; 85025; 99282

== ENCOUNTER → 2017-10-03 08:30 | Outpatient (CLI) | payer MEDICARE, SELFPAY ==
--- NOTE | 2017-10-03 08:36 | CT_ITS ---
STUDY: CT LUMBAR SPINE WITHOUT CONTRAST REASON FOR EXAM: Male, 82 years old. Low back pain radiating down right lower extremity RADIATION DOSAGE (If Supplied By Facility): CTDIvol = ( 17.75 ) mGy, DLP = ( 466.73 ) mGycm TECHNIQUE: The patient was scanned in a multi detector CT scanner. High resolution transaxial imaging was performed. Images were obtained from to . Sagittal and coronal images were reconstructed. Individualized dose optimization techniques were used for this CT. COMPARISON: None FINDINGS: Normal lumbar lordosis. There is moderate levo scoliosis. Normal vertebrae of the lumbar spine. L1-2: Mild endplate spurring.. Narrowed disc height and normal morphology. Normal bilateral facet joints. Normal central canal and bilateral lateral recesses. Normal bilateral intervertebral neural foramina. L2-3: Mild endplate spurring. Mild bulging disc osteophyte complex. Mild facet arthropathy. Normal central canal. Moderate bilateral recess and neuroforaminal stenosis secondary to bony hypertrophy L3-4: Endplate spurring narrowed disc space and endplate spurring. Minor bulging disc osteophyte complex. Mild facet arthropathy. Mild to moderate narrowing of the central canal. Severe bilateral recess and neuroforaminal stenosis exaggerated by shortened pedicles. L4-5: Mild endplate spurring. Normal disc height with vacuum disc degeneration. Mild bulging disc osteophyte complex. Bilateral facet arthropathy and thickening of ligamenta flava moderate to severe central canal stenosis. Severe bilateral recess and neuroforaminal stenosis exaggerated by shortened pedicles. L5-S1: Mild endplate spurring. Vacuum disc degeneration. Minor bulging disc osteophyte complex. Bilateral facet arthropathy. Normal central canal. Severe bilateral recess and neural foraminal stenosis exaggerated by shortened pedicles. Normal visualized paraspinous soft tissue structures. CT/Spine Lumbar without Contrast IMPRESSION: No evidence for acute fracture or subluxation. Scoliosis and degenerative changes. Multilevel spinal stenosis secondary to disc disease and bony hypertrophy exaggerated by shortened pedicles. Electronically Signed: Anil Quiroga MD at 23:52 EDT , Service support ,
== END ==
PROVIDERS: Family Provider Family Medicine; PCP Family Medicine
DX: M54.16 Radiculopathy, lumbar region (principal)
CPT/HCPCS: 72131

== ENCOUNTER → 2017-11-02 12:20 | Outpatient (CLI) | payer MEDICARE, SELFPAY | PROVIDERS: Family Provider Family Medicine; PCP Family Medicine; Visit Provider Family Medicine | DX: J20.9 Acute bronchitis, unspecified (principal) | CPT/HCPCS: 71046 ==

== ENCOUNTER → 2017-11-17 11:12 | Outpatient (CLI) | payer MEDICARE, SELFPAY ==
[2017-11-17 12:35] LABS: Absolute Lymphocyte Count 0.69 X10^3/ul (0.83-4.51); Basophil# 0.03 X10^3/uL; Basophil% 0.5 % (0-1); Eosinophils% 1.6 % (0-5); Hematocrit 31.5 % (40-54); International Normalized Ratio 1.2; Lymphocyte # 0.69 X10^3/ul (4.0); Lymphocyte % 10.7 % (19-41); Mean Corp Hgb Conc 31.7 g/gl (32-36); Mean Corpuscular Volume 94.6 fL (80-94); Mean Platelet Vol. 10.3 fl (6.2-12.0); Monocyte# 0.57 X10^3/uL; Monocyte% 8.9 % (0-10); Neutrophil # 5.01 X10^3/uL (2.7-7.7); Neutrophil % 77.7 % (47-70); Platelet Count 307 K/mm3 (150-450); Prothrombin Time (Protime)PT. 14.7 SECONDS (11.7-14.9); RBC Distribution Width CV 17.5 % (11.6-14.6); RBC Distribution Width SD 59.9 fl (35.1-43.9); Red Blood Count 3.33 M/mm3 (4.6-6.2); White Blood Count 6.4 K/mm3 (4.4-11.0)
[2017-11-17 12:38] LABS: POSITIVE COUNT NO; POSITIVE DIFFERENTIAL NO; POSITIVE MORPHOLOGY NO
[2017-11-17 12:53] LABS: Anion Gap 7 (5-15); BUN 32 mg/dL (7-18); BUN/Creat Ratio 14.3 RATIO (10-20); Calcium,Total 9.8 mg/dL (8.5-10.1); Chloride 104 mmol/L (98-107); Creatinine, Serum 2.24 mg/dL (0.70-1.30); EST Glomerular Filtration Rate 30 mL/min (>60); Est Glom Filt Rate - Afr Amer 36 mL/min (>60); Glucose 238 mg/dL (74-106); Potassium 4.6 mmol/L (3.5-5.1); Sodium Level 139 mmol/L (136-145)
[2017-11-17 12:58] LABS: BNP,B-Type NATRIURETIC PEPTIDE 588.5 pg/mL (0-100)
== END ==
PROVIDERS: Family Provider Family Medicine; PCP Family Medicine; Visit Provider Physician Assistant Medical
DX: I25.10 Atherosclerotic heart disease of native coronary artery without angina pectoris (principal); I50.42 Chronic combined systolic (congestive) and diastolic (congestive) heart failure; R06.09 Other forms of dyspnea; I25.5 Ischemic cardiomyopathy; R07.9 Chest pain, unspecified
CPT/HCPCS: 36415; 80048; 83880; 85025; 85610; 85730

== ENCOUNTER → 2017-11-23 10:22 | Outpatient (CLI) | payer MEDICARE, SELFPAY ==
[2017-11-23 10:35] VITALS: BP 144/62; PULSE 72; RESP 20; TEMP 36.3; O2SAT 97; BMI 27.2
[2017-11-23] MEDS: Furosemide 40 MG/4 ML Vial IV (10:50)
== END ==
PROVIDERS: Family Provider Family Medicine; PCP Family Medicine; Visit Provider Physician Assistant Medical
DX: I50.9 Heart failure, unspecified (principal)
CPT/HCPCS: 96374; J1940

== ENCOUNTER → 2017-11-24 07:54 | Outpatient (CLI) | payer MEDICARE, SELFPAY ==
[2017-11-24] MEDS: Furosemide 40 MG/4 ML Vial IV (08:08)
[2017-11-24 08:32] VITALS: BP 140/60; PULSE 80; RESP 18; TEMP 36.3; O2SAT 95
== END ==
PROVIDERS: Family Provider Family Medicine; PCP Family Medicine; Visit Provider Physician Assistant Medical
DX: I50.9 Heart failure, unspecified (principal)
CPT/HCPCS: 96374; A4216; J1940

== ENCOUNTER → 2017-11-25 07:52 | Outpatient (CLI) | payer MEDICARE, SELFPAY ==
[2017-11-25] MEDS: Furosemide 40 MG/4 ML Vial IV (08:10)
[2017-11-25 09:30] VITALS: BP 102/81; PULSE 82; RESP 18; TEMP 36.6; O2SAT 97
== END ==
PROVIDERS: Family Provider Family Medicine; PCP Family Medicine; Visit Provider Physician Assistant Medical
DX: I50.9 Heart failure, unspecified (principal)
CPT/HCPCS: 96374; A4216; J1940

== ENCOUNTER → 2017-11-26 08:02 | Outpatient (CLI) | payer MEDICARE, SELFPAY ==
[2017-11-26 08:13] VITALS: BP 128/58; PULSE 83; RESP 18; TEMP 36.2; O2SAT 96
[2017-11-26] MEDS: Furosemide 40 MG/4 ML Vial IV (08:15)
== END ==
PROVIDERS: Family Provider Family Medicine; PCP Family Medicine; Visit Provider Physician Assistant Medical
DX: I50.9 Heart failure, unspecified (principal)
CPT/HCPCS: 96374; A4216; J1940

== ENCOUNTER → 2017-11-27 07:57 | Outpatient (CLI) | payer MEDICARE, SELFPAY ==
[2017-11-27 08:09] VITALS: BP 116/52; PULSE 75; RESP 18; TEMP 36.4; O2SAT 96
[2017-11-27] MEDS: Furosemide 40 MG/4 ML Vial IV (08:12)
[2017-11-27 09:04] LABS: Anion Gap 10 (5-15); BUN 28 mg/dL (7-18); BUN/Creat Ratio 11.2 RATIO (10-20); Chloride 103 mmol/L (98-107); EST Glomerular Filtration Rate 27 mL/min (>60); Est Glom Filt Rate - Afr Amer 32 mL/min (>60); Glucose 163 mg/dL (74-106); Potassium 4.1 mmol/L (3.5-5.1); Sodium Level 139 mmol/L (136-145)
== END ==
PROVIDERS: Family Provider Family Medicine; PCP Family Medicine; Visit Provider Physician Assistant Medical
DX: I50.9 Heart failure, unspecified (principal)
CPT/HCPCS: 96374; 80048; A4216; J1940

== ENCOUNTER → 2017-12-16 09:49 | Outpatient (CLI) | payer MEDICARE, SELFPAY ==
[2017-12-16 11:29] LABS: Anion Gap 9 (5-15); BUN 26 mg/dL (7-18); Calcium,Total 9.2 mg/dL (8.5-10.1); Chloride 102 mmol/L (98-107); EST Glomerular Filtration Rate 22 mL/min (>60); Est Glom Filt Rate - Afr Amer 27 mL/min (>60); Glucose 214 mg/dL (74-106); Potassium 4.2 mmol/L (3.5-5.1); Sodium Level 138 mmol/L (136-145)
== END ==
PROVIDERS: Family Provider Family Medicine; PCP Family Medicine; Referring Provider Physician Assistant Medical; Visit Provider Physician Assistant Medical
DX: I50.23 Acute on chronic systolic (congestive) heart failure (principal)
CPT/HCPCS: 36415; 80048

== ENCOUNTER → 2018-01-12 15:40 | Outpatient (CLI) | payer MEDICARE, SELFPAY ==
[2018-01-12 16:56] LABS: Protein, Urine (Random) 198.6 mg/dL (<11.9); Protein:Creat Ratio 969 mg/g CRE (0-200)
== END ==
PROVIDERS: Family Provider Family Medicine; PCP Family Medicine; Visit Provider Internal Medicine Nephrology
DX: N18.4 Chronic kidney disease, stage 4 (severe) (principal); R80.9 Proteinuria, unspecified
CPT/HCPCS: 82570; 84156; 86335

== ENCOUNTER → 2018-01-13 11:02 | Outpatient (CLI) | payer MEDICARE, SELFPAY ==
--- NOTE | 2018-01-13 11:11 | US_ITS ---
STUDY: RENAL ULTRASOUND - COMPLETE REASON FOR EXAM: Male, 82 years old. Chronic kidney disease stage IV. TECHNIQUE: Ultrasound evaluation of the kidneys was performed with real-time and static alvarado-scale imaging. COMPARISON: CT abdomen pelvis August 04, 2017 FINDINGS: RIGHT KIDNEY: Normal location of the right kidney, which is normal in size. The right kidney measures 12.3 x 5.2 x 5.7 cm. There is a normal cortex of the right kidney. The renal cortex measures 1.3 cm. There are multiple right renal cortical cysts. The largest is at the superior lateral margin of the kidney, measuring 4.3 x 5.1 x 6.1 cm. A second 4.0 x 4.1 x 4.0 cm cortical cyst is seen at the lower pole. There are no right renal calculi. There is no right hydronephrosis. DISTAL RIGHT URETER: There is non-visualization of the distal right ureter. There is no demonstrated right ureterovesical junction calculus. There is a visualized right ureteral jet. LEFT KIDNEY: Normal location of the left kidney, which is normal in size. The left kidney measures 11.7 x 6.1 x 5.0 cm. There is a normal cortex of the left kidney. The renal cortex measures 1.1 cm. There are multiple left renal cortical cysts. One at the upper pole is 3.1 x 2.7 x 2.5 cm. A second at the mid pole is 2.2 x 3.4 x 2.2 cm. There are no left renal calculi. There is no left hydronephrosis. BLADDER: Empty urinary bladder at the time of scanning. Evaluation of bladder wall thickness or mass within the urinary bladder is precluded. There are no demonstrated bladder calculi. US/Kidney and Bladder IMPRESSION: Bilateral renal cortical cysts again noted. No hydronephrosis. Electronically Signed: Vamshi Mike MD at 16:57 EST , Service support ,
[2018-01-13 11:59] LABS: Protein, Urine (Random) 216.3 mg/dL (<11.9); Protein:Creat Ratio 1098 mg/g CRE (0-200)
== END ==
PROVIDERS: Family Provider Family Medicine; PCP Family Medicine; Referring Provider Internal Medicine Nephrology; Visit Provider Internal Medicine Nephrology
DX: N18.4 Chronic kidney disease, stage 4 (severe) (principal)
CPT/HCPCS: 76770; 82570; 84156

== ENCOUNTER → 2018-02-11 12:04 | Outpatient (CLI) | payer MEDICARE, SELFPAY ==
[2018-01-26 08:59] VITALS: BMI 28.5
[2018-02-11 12:37] LABS: Hematocrit 38.8 % (40-54); Hemoglobin 12.3 g/dl (13.0-16.5); Mean Corp Hgb Conc 31.7 g/gl (32-36); Mean Corpuscular Hgb 28.9 pg (27.0-32.0); Mean Corpuscular Volume 91.3 fL (80-94); Mean Platelet Vol. 10.1 fl (6.2-12.0); Platelet Count 336 K/mm3 (150-450); RBC Distribution Width CV 15.3 % (11.6-14.6); Red Blood Count 4.25 M/mm3 (4.6-6.2); White Blood Count 5.8 K/mm3 (4.4-11.0)
[2018-02-11 12:39] LABS: Scan Indicated on CBC? Y/N NO
[2018-02-11 12:50] LABS: Albumin, Serum 4.1 g/dL (3.2-5.0); BUN 36 mg/dL (7-18); BUN/Creat Ratio 13.8 RATIO (10-20); Calcium,Total 9.3 mg/dL (8.5-10.1); Chloride 101 mmol/L (98-107); EST Glomerular Filtration Rate 25 mL/min (>60); Est Glom Filt Rate - Afr Amer 31 mL/min (>60); Glucose 217 mg/dL (74-106); Phosphorus 3.2 mg/dL (2.5-4.9); Potassium 4.7 mmol/L (3.5-5.1); Sodium Level 139 mmol/L (136-145)
[2018-02-11 13:21] LABS: PTHIN 83.5 pg/mL (18.4-80.1)
== END ==
PROVIDERS: Family Provider Family Medicine; PCP Family Medicine; Visit Provider Internal Medicine Nephrology
DX: N18.4 Chronic kidney disease, stage 4 (severe) (principal)
CPT/HCPCS: 36415; 80069; 83970; 85027

== ENCOUNTER → 2018-03-29 10:05 | Outpatient (CLI) | payer MEDICARE, SELFPAY ==
[2018-01-26 08:59] VITALS: BMI 28.5
[2018-03-29 12:15] LABS: AST(SGOT) 11 U/L (15-37); Alanine Aminotransfer ALT/SGPT 18 U/L (16-61); Albumin, Serum 3.9 g/dL (3.2-5.0); Alkaline Phosphatase 66 U/L (45-117); Bilirubin, Direct 0.27 mg/dL (0.00-0.30); Cholesterol 133 mg/dL (200); High Density Lipoprotein 33 mg/dL; Protein, Total 6.9 g/dL (6.4-8.2); Triglycerides 174 mg/dL; Very Low Density Lipoprotein 35 mg/dL (5-40)
[2018-03-29 12:18] LABS: Hemoglobin A1c 5.9 % (4.2-6.3)
--- OUTSIDE RECORDS SUMMARY | 2018-05-31 20:10 | XMS RPT_ITS ---
:1935 Author Organization [place] Support Name Relationship Address Phone MATT OTTO Unavailable [address] + [place] [address] OTTO, BLAISE Unavailable [address] + [place] [address] [employer] Unavailable [address] + [place] [address] OTTO, MATT Unavailable Unavailable + OTTO, MATT Unavailable [address] + [place] [address] OTTO, BLAISE Unavailable [address] + [place] [address] [employer] Unavailable [address] + [place] [address] OTTO, MATT Unavailable [address] + [place] [address] OTTO, BLAISE Unavailable [address] + [place] [address] [employer] Unavailable [address] + [place] [address] OTTO, MATT Unavailable [address] + [place] [address] OTTO, BLAISE Unavailable [address] + [place] [address] [employer] Unavailable [address] + [place] [address] OTTO, MATT Unavailable [address] + [place] [address] OTTO, BLAISE Unavailable [address] + [place] [address] [employer] Unavailable [address] + [place] [address] OTTO, MATT Unavailable [address] + [place] [address] OTTO, BLAISE Unavailable [address] + [place] [address] [employer] Unavailable [address] + [place] [address] OTTO, MATT Unavailable [address] + [place] [address] OTTO, BLAISE Unavailable [address] + [place] [address] [employer] Unavailable [address] + [place] [address] OTTO, MATT Unavailable [address] + [place] [address] OTTO, BLAISE Unavailable [address] + [place] [address] [employer] Unavailable [address] + [place] [address] OTTO, MATT Unavailable [address] + [place] [address] OTTO, BLAISE Unavailable [address] + [place] [address] [employer] Unavailable [address] + [place] [address] OTTO, MATT Unavailable [address] + [place] [address] OTTO, BLAISE Unavailable [address] + [place] [address] [employer] Unavailable [address] + [place] [address] OTTO, MATT Unavailable [address] + [place] [address] OTTO, BLAISE Unavailable [address] + [place] [address] [employer] Unavailable [address] + [place] [address] OTTO, MATT Unavailable [address] + [place] [address] OTTO, BLAISE Unavailable [address] + [place] [address] [employer] Unavailable [address] + [place] [address] OTTO, MATT Unavailable [address] + [place] [address] OTTO, BLAISE Unavailable [address] + [place] [address] [employer] Unavailable [address] + [place] [address] OTTO, MATT Unavailable [address] + [place] [address] OTTO, BLAISE Unavailable [address] + [place] [address] [employer] Unavailable [address] + [place] [address] OTTO, MATT Unavailable [address] + [place] [address] OTTO, BLAISE Unavailable [address] + [place] [address] [employer] Unavailable [address] + [place] [address] OTTO, MATT Unavailable [address] + [place] [address] OTTO, BLAISE Unavailable [address] + [place] [address] [employer] Unavailable [address] + [place] [address] OTTO, MATT Unavailable [address] + [place] [address] OTTO, BLAISE Unavailable [address] + [place] [address] [employer] Unavailable [address] + [place] [address] OTTO, MATT Unavailable [address] + [place] [address] OTTO, BLAISE Unavailable [address] + [place] [address] [employer] Unavailable [address] + [place] [address] OTTO, MATT Unavailable [address] + [place] [address] OTTO, BLAISE Unavailable [address] + [place] [address] [employer] Unavailable [address] + [place] [address] OTTO, MATT Unavailable Unavailable + OTTO, MATT Unavailable [address] + [place] [address] OTTO, BLAISE Unavailable [address] + [place] [address] [employer] Unavailable [address] + [place] [address] OTTO, MATT Unavailable Unavailable + OTTO, MATT Unavailable Unavailable + OTTO, MATT Unavailable [address] + [place] [address] OTTO, BLAISE Unavailable [address] + [place] [address] [employer] Unavailable [address] + [place] [address] OTTO, MATT Unavailable [address] + [place] [address] OTTO, BLAISE Unavailable [address] + [place] [address] [employer] Unavailable [address] + [place] [address] OTTO, MATT Unavailable [address] + [place] [address] OTTO, BLAISE Unavailable [address] + [place] [address] [employer] Unavailable [address] + [place] [address] OTTO, MATT Unavailable [address] + [place] [address] OTTO, BLAISE Unavailable [address] + [place] [address] [employer] Unavailable [address] + [place] [address] OTTO, MATT Unavailable [address] + [place] [address] OTTO, BLAISE Unavailable [address] + [place] [address] [employer] Unavailable [address] + [place] [address] OTTO, MATT Unavailable [address] + [place] [address] OTTO, BLAISE Unavailable [address] + [place] [address] [employer] Unavailable [address] + [place] [address] OTTO, MATT Unavailable [address] + [place] [address] OTTO, BLAISE Unavailable [address] + [place] [address] [employer] Unavailable [address] + [place] [address] OTTO, MATT Unavailable [address] + [place] [address] OTTO, BLAISE Unavailable [address] + [place] [address] [employer] Unavailable [address] + [place] [address] OTTO, MATT Unavailable [address] + [place] [address] OTTO, BLAISE Unavailable [address] + [place] [address] [employer] Unavailable [address] [place] [address] OTTO, MATT Unavailable [address] + [place] [address] OTTO, BLAISE Unavailable [address] + [place] [address] [employer] Unavailable [address] [place] [address] OTTO, MATT Unavailable [address] + [place] [address] OTTO, BLAISE Unavailable [address] + [place] [address] [employer] Unavailable [address] [place] [address] OTTO, MATT Unavailable [address] [phone] [place] [address] OTTO, BLAISE Unavailable [address] + [place] [address] [employer] Unavailable [address] [place] [address] OTTO, MATT Unavailable [address] [phone] [place] [address] OTTO, BLAISE Unavailable [address] + [place] [address] [employer] Unavailable [address] [place] [address] Care Team Providers Name Role Phone DR. SALIMA TUTTLE MD. Primary Care Unavailable DR. SALIMA TUTTLE MD. Attending Unavailable SILVANA ARAMBULA Attending Unavailable DR. SALIMA TUTTLE MD. Primary Care Unavailable SILVANA ARAMBULA Attending Unavailable DR. SALIMA TUTTLE MD. Primary Care Unavailable SILVANA ARAMBULA Attending Unavailable DR. SALIMA TUTTLE MD. Primary Care Unavailable Salima Tuttle Attending Unavailable Parag, Salima Primary Care Unavailable Salima Tuttle Attending Unavailable Emilianaiff, Salima Referring Unavailable Michellelliff, Salima Primary Care Unavailable Clari Jameson Attending Unavailable Jolliff, Salima Referring Unavailable Jolliff, Salima Primary Care Unavailable Jolliff, Salima Primary Care Unavailable Jalen Mei Attending Unavailable Annette Rivera Attending Unavailable Jolilliiff Salima Referring Unavailable Jolliff, Salima Primary Care Unavailable Ramon Crockett Attending Unavailable Ramon Crockett Referring Unavailable Jolliff, Salima Primary Care Unavailable Ramon Crockett Attending Unavailable Jolliff, Salima Primary Care Unavailable Ramon Crockett Referring Unavailable Jolliff, Salima Primary Care Unavailable Tereletsky, Cruzito Admitting Unavailable Robotham, Jannet Consulting Unavailable Sementi, Rocio Attending Unavailable Jatin, Pool Consulting Unavailable Tereletsky, Cruzito Admitting Unavailable Tereletsky, Cruzito Attending Unavailable Jolliff, Salima Primary Care Unavailable Robotham, Jannet Consulting Unavailable Tereletsky, Cruzito Consulting Unavailable Tereletsky, Cruzito Admitting Unavailable Sementi, Rocio Attending Unavailable Jolliff, Salima Primary Care Unavailable Robotham, Jannet Consulting Unavailable Jatin, Pool Consulting Unavailable Sementi, Rocio Consulting Unavailable Tereletsky, Cruzito Admitting Unavailable Robotham, Jannet Attending Unavailable Jolliff, Salima Primary Care Unavailable Robotham, Jannet Consulting Unavailable Jatin, Pool Consulting Unavailable Sementi, Rocio Consulting Unavailable Tereletsky, Cruzito Admitting Unavailable Sementi, Rocio Attending Unavailable Jolliff, Salima Primary Care Unavailable Robotham, Jannet Consulting Unavailable Jatin, Pool Consulting Unavailable Sementi, Rocio Consulting Unavailable Jolliff, Salima Attending Unavailable Jolliff, Salima Referring Unavailable Jolliff, Salima Primary Care Unavailable Dion Leo Attending Unavailable Jolliff, Salima Primary Care Unavailable SALIMA FARFAN Attending Unavailable SALIMA FARFAN Referring Unavailable Jolliff, Salima Primary Care Unavailable SALIMA FARFAN Consulting Unavailable Jolliff, Salima Attending Unavailable Jolliff, Salima Referring Unavailable Jolliff, Salima Primary Care Unavailable Clari Jameson Attending Unavailable Jolliff, Salima Referring Unavailable Jolliff, Salima Primary Care Unavailable Clari Jameson Attending Unavailable Clari Jameson Referring Unavailable Jolliff, Salima Primary Care Unavailable JamesonClari Attending Unavailable Jolliff, Salima Referring Unavailable Jolliff, Salima Primary Care Unavailable Clari Jameson Attending Unavailable Clari Jameson Referring Unavailable Jolliff, Salima Primary Care Unavailable Clari Jameson Attending Unavailable Clari Jameson Referring Unavailable Jolliff, Salima Primary Care Unavailable Clari Jameson Attending Unavailable Clari Jameson Referring Unavailable Jolliff, Salima Primary Care Unavailable Clari Jameson Attending Unavailable Jameson, Clari M Referring Unavailable Jolliff, Salima Primary Care Unavailable Jameson, Clari M Attending Unavailable Jameson, Clari M Referring Unavailable Jolliff, Salima Primary Care Unavailable Jameson, Clari M Attending Unavailable Jolliff, Salima Referring Unavailable Jameson, Clari M Attending Unavailable Jolliff, Salima Referring Unavailable Jameson, Clari M Attending Unavailable Jameson, Clari M Referring Unavailable Jolliff, Salima Primary Care Unavailable Jameson, Clari M Attending Unavailable Jolliff, Salima Referring Unavailable Miguel, Nuha Attending Unavailable Miguel, Nuha Referring Unavailable Jolliff, Salima Primary Care Unavailable JamesonClari M Consulting Unavailable Miguel, Nuha Attending Unavailable Jolliff, Salima Primary Care Unavailable Gracia, David Attending Unavailable Jolliff, Salima Referring Unavailable Annette Rivera Attending Unavailable Jolliff, Salima Referring Unavailable Miguel, Nuha Attending Unavailable Jolliff, Salima Primary Care Unavailable PROBLEMS PROBLEMS DATE TYPE CONDITION / CODE ATTENDING STATUS SOURCE 02/02/2018 Unknown I25.5 - Ischemic Annette Rivera [facility] cardiomyopathy / Community I25.5(ICD-10) Hospital Repository 02/02/2018 Unknown I50.23 - Acute on Annette Rivera [facility] chronic systolic Community (congestive) heart Hospital failure / Repository I50.23(ICD-10) 02/02/2018 Unknown Z95.0 - Presence of Annette Rivera [facility] cardiac pacemaker / Community Z95.0(ICD-10) Hospital Repository 02/02/2018 Unknown I47.2 - Ventricular [facility]te [facility] tachycardia / [facility] I47.2(ICD-10) Hospital Repository 01/26/2018 Unknown I10 - Essential Gr[place], [place] [facility] (primary) Community hypertension / Hospital I10(ICD-10) Repository 01/26/2018 Unknown Z95.1 - Presence of Gracia, [place] [facility] aortocoronary bypass Community graft / Z95.1(ICD-10) Hospital Repository 12/29/2017 Unknown N18.4 - Chronic Jameson, [facility] kidney disease, stage Clari Love [facility] 4 (severe) / Hospital N18.4(ICD-10) Repository 11/17/2017 Unknown I25.10 - Jameson, [facility] Atherosclerotic heart [facility] disease [facility] coronary artery Repository without angina pectoris / I25.10(ICD-10) 11/17/2017 Unknown R06.09 - Other forms [place] [facility] of dyspnea / Clari [facility] R06.09(ICD-10) Hospital Repository 11/17/2017 Unknown R07.9 - Chest pain, [place] [facility] unspecified / Clari [facility] R07.9(ICD-10) Hospital Repository 11/17/2017 Unknown 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, [facility]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 unspecified / Hospital M54.10(ICD-10) Repository 07/30/2017 Unknown N20.0 - Calculus of Ramon Crockett [facility] kidney / E Community N20.0(ICD-10) Hospital Repository PROCEDURES PROCEDURES No Procedure Records FoundRESULTS RESULTS LIVER PROFILE Collected: 03/29/2018 Status: F Source: [place] 10:[facility] TYPE CODE TESTS RESULT OUT OF RANGE REFERENCE UNITS LAB L501.1500 6.4-8.2 g/dL Normal T PROT 6.9 LAB L501.1800 3.2-5.0 g/dL Normal ALB 3.9 LAB L501.1950 2.2-4.2 g/dL Normal GLOB 3.0 LAB L501.4100 15-37 U/L Low AST 11 Result Comment: Slight Hemolysis, Result may be falsely increased. LAB L501.4305 45-117 U/L Normal ALK P 66 LAB L501.4405 16-61 U/L Normal ALT 18 LAB L501.4600 0.20-1.00 mg/dL High T BILI 1.50 LAB L501.4700 0.00-0.30 mg/dL Normal D BILI 0.27 Performed By: #### L500.3400, L500.4100 #### [facility] [address] [place], [address] LIPID PROFILE Collected: 03/29/2018 Status: F Source: [place] 10:10 AM [facility] REPOSITORY TYPE CODE TESTS RESULT OUT OF RANGE REFERENCE UNITS LAB L501.4900 200 mg/dL Normal CHOL 133 Result Comment: <200 mg/dL Desirable 200-240 mg/dL Borderline >240 mg/dL High Risk LAB L501.5000 mg/dL Normal TRIG 174 Result Comment: The drugs N-Acetylcysteine and Metamizole may falsely depress this assay. Serum Triglycerides Reference Interval Normal <150 mg/dL Borderline high 150 - 199 mg/dL High 200 - 499 mg/dL Very High > or = 500 mg/dL LAB L501.6400 mg/dL Low HDL 33 Result Comment: The drugs N-Acetylcysteine and Metamizole may falsely depress this assay. Reference Range HDL <40 mg/dL Low HDL Cholesterol HDL >or= 60 mg/dL High HDL Cholesterol LAB L501.6500 0-130 mg/dL Normal LDL 65 LAB L501.6600 5-40 mg/dL Normal VLDL 35 Performed By: #### L500.3400, L500.4100 #### [facility] [address] [place], [address] HEMOGLOBIN A1C Collected: 03/29/2018 Status: F Source: [place] 10:10 AM [facility] REPOSITORY TYPE CODE TESTS RESULT OUT OF RANGE REFERENCE UNITS LAB L501.9985 4.2-6.3 % Normal HGB A1C 5.9 Performed By: #### L501.9985 #### [facility] [address] [place], [address] CBC-COMPLETE BLOOD CNT Collected: 02/11/2018 Status: F Source: [place] NO DIFF 12:08 PM [facility] REPOSITORY TYPE CODE TESTS RESULT OUT OF RANGE REFERENCE UNITS LAB L100.1000 4.4-11.0 K/mm3 Normal WBC 5.8 LAB L100.1200 4.6-6.2 M/mm3 Low RBC 4.25 LAB L100.1300 13.0-16.5 g/dl Low HGB 12.3 LAB L100.1400 40-54 % Low HCT 38.8 LAB L100.1500 80-94 fL Normal MCV 91.3 LAB L100.1600 27.0-32.0 pg Normal MCH 28.9 LAB L100.1700 32-36 g/gl Low MCHC 31.7 LAB L100.1810 11.6-14.6 % High RDW CV 15.3 LAB L100.1820 35.1-43.9 fl High RDW SD 51.0 LAB L100.1900 150-450 K/mm3 Normal PLT 336 LAB L100.2000 6.2-12.0 fl Normal MPV 10.1 Performed By: #### L100.0500 #### [facility] [address] [place], [address] RENAL PROFILE Collected: 02/11/2018 Status: F Source: [place] 12:08 PM [facility] REPOSITORY TYPE CODE TESTS RESULT OUT OF RANGE REFERENCE UNITS LAB L501.0100 74-106 mg/dL High GLU 217 Result Comment: Glucose result greater than or equal to 200 mg/dL suggests DIABETES MELLITUS per A.D.A. criteria. Please note revised GLUCOSE reference range effective 2017. LAB L501.1000 7-18 mg/dL High BUN 36 LAB L501.1100 0.70-1.30 mg/dL High CREAT,SERUM 2.60 Result Comment: The validity of the calculated GFR AND GFRAA in patients over 70 years has not been determined. Clinical correlation is essential. LAB L501.1110 >60 mL/min Low EST GFR 25 Result Comment: Non- GFR Calc LAB L501.1115 >60 mL/min Low EST GFR - AA 31 Result Comment: GFR Calc LAB L501.1300 10-20 RATIO Normal BUN/CRE 13.8 LAB L501.1800 3.2-5.0 g/dL Normal ALB 4.1 LAB L501.2200 8.5-10.1 mg/dL CA Normal 9.3 LAB L501.2300 2.5-4.9 mg/dL Normal PHOS 3.2 LAB L501.5300 136-145 mmol/L NA Normal 139 LAB L501.5600 3.5-5.1 mmol/L K Normal 4.7 LAB L501.5900 98-107 mmol/L CL Normal 101 LAB L501.6100 21.0-32.0 mmol/L Normal CO2 30.0 Performed By: #### L500.3600 #### [facility] [address] [place], [address] PTHIN Collected: 02/11/2018 Status: F Source: [place] 12:08 PM [facility] REPOSITORY TYPE CODE TESTS RESULT OUT OF RANGE REFERENCE UNITS LAB L509.1000 18.4-80.1 pg/mL High PTHIN 83.5 Performed By: #### L509.1000 #### [facility] [address] [place], [address] PACEMAKER CHECK Observed: 02/01/2018 Status: F Source: [place] 5:42 PM [facility] REPOSITORY [facility] [address] [place] [address] Pacemaker Check Date of Service: 02/01/1843 MR#: [id number] Acct: [id number] Name: HEATH OTTO Rep #: [id number] : 1935 From: Annette Rivera Age/Sex: 82/M Location: [facility] [place] Status: Signed Billing Codes PM Device Codes: PM Dev Prog Eval, Dual 02/01/18 0945 <Electronically signed by Annette Rivera > Date Annette Rivera 02/01/18 174<Electronically signed by David Fagan MD> Cosigner Signature: Date (if applicable) David Fagan MD CC: CARDIOLOGY VISIT Observed: 01/26/2018 Status: F Source: [place] REPORT 9:13 AM [facility] REPOSITORY [facility] [address] [place] [address] OFFICE VISIT Date of Service: 01/26/18 MR#: [id number] Acct: [id number] Name: HEATH OTTO Rep #: [id number] : 1935 Provider: David Fagan MD Age/Sex: 82/M Location: [facility] Status: Signed HPI HPI Chief Complaint: Follow up Details: HEATH OTTO, is a 82 M who presents to the office today for a follow-up visit. He is a gentleman with a history of coronary artery bypass surgery in 2005. At that time he had a left internal mammary artery to the left anterior descending artery, saphenous vein graft to circumflex artery. His last heart catheterization 2014 demonstrated widely patent stents in the proximal left anterior descending artery and proximal circumflex artery. An 80% stenosis in the mid left anterior descending artery patent stent in the obtuse marginal branch and patent left internal mammary artery to the left anterior descending artery. 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 This resulted in a pacemaker implant. He has complained of some shortness of breath over the last 6 weeks he was treated with antibiotic biotics for this. He also had some chest discomfort and needed nitroglycerin. As you know he does have significant renal dysfunction with his creatinine now which is increased to 2.9. His last echocardiogram demonstrated an ejection fraction of 27% with severe hypokinesis of the left ventricle. Natruretic peptide was done recently for the shortness of breath and was noted to be elevated. His physical exam today demonstrates clear lung oneal regular rate and rhythm no S3 or S4 and no pedal edema his weight has remained stable at 182 pounds. 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: No Accompanied by: none Is patient in pain?: No Allergies Penicillins Allergy (Verified 12/29/17 09:29) Anaphylaxis rosuvastatin calcium [From Crestor] Allergy (Verified 12/29/17 09:29) legs hurt Uwcsnhc-Wbf-Gmz Reductase Inhibitor Allergy (Verified 12/29/17 09:29) body aches amlodipine [From Norvasc] Adverse Reaction (Intermediate, Verified 12/29/17 09:29) dizzy Medications Folic Acid 5 mg PO QHS 03/12/14 [History Confirmed 01/26/18] Aspirin [Aspirin, Baby] 81 mg PO QHS 04/14/14 [History Confirmed 01/26/18] Multivitamins,Therapeutic [Multivitamin] 1 tab PO QHS 04/14/14 [History Confirmed 01/26/18] Ubidecarenone [Q-Sorb Co Q-10] 100 mg PO QHS 02/25/16 [History Confirmed 01/26/18] metformin ER 500 mg tablet,extended release 24 hr 500 mg PO DAILY 90 Days #90 06/04/17 [History Confirmed 01/26/18] nitroglycerin 0.4 mg sublingual tablet 0.4 mg SUBLINGUAL Q5M PRN #25 tab 06/05/17 [Rx Confirmed 01/26/18] clopidogrel 75 mg tablet 75 mg PO QHS #90 tab 09/17/17 [Rx Confirmed 01/26/18] carvedilol 3.125 mg tablet 3.125 mg PO BID #60 tab 11/13/17 [Rx Confirmed 01/26/18] omeprazole magnesium 20 mg tablet,delayed release 20 mg PO DAILY #30 tab 12/02/17 [Rx Confirmed 01/26/18] tamsulosin 0.4 mg capsule 0.4 mg PO DAILY 12/02/17 [History Confirmed 01/26/18] furosemide 40 mg tablet 40 mg PO DAILY tab 01/26/18 [History] [facility] Medical History Ischemic cardiomyopathy (Chronic) Right bundle branch block (Chronic) Complete AV block, 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) HTN (hypertension) (Chronic) HLD (hyperlipidemia) (Chronic) 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) Cardiac pacemaker (Chronic) NSTEMI (non-ST elevated myocardial infarction) (Resolved) Surgical History S/P PTCA (percutaneous transluminal coronary angioplasty) (Chronic) S/P CABG x 2 (Chronic) History of appendectomy (Resolved) History of back surgery (Resolved) History of tonsillectomy and adenoidectomy (Resolved) Family History Father Myocardial infarction Hypertension Heart disease Mother Hypertension Emphysema of lung FH: brain aneurysm Daughter Afib Social History Smoking Status: Former smoker how long ago did patient quit smokin alcohol intake: never substance use type: does not use caffeine: Yes Type: coffee Number of servings: 3 what type of physical activity do you participate in: walking, bicycling frequency: daily duration: 30-45 minutes/day seatbelt use: always do you feel safe at home: Yes ROS Const Const: Positive for fatigue (ongoing) and weakness; negative for night sweats, excessive sweating, frequent falls, headache(s) or daytime sleepiness Eyes Eyes: Negative for loss of peripheral vision, transient loss of vision, blind spots, double vision or blurry vision ENT ENT: Negative for headache(s), dizziness, balance problems, Nosebleed/epistaxis, tongue swelling or lip swelling Cardio Chest Pain: No Palpitations: No Edema: None Muscle aches with walking: None Resp Respiratory: Positive for SOB with activity (ongoing); negative for SOB at rest, SOB orthopnea\SOB lying down, Cough or paroxysmal nocturnal dyspnea GI GI: Negative nausea, vomiting, heartburn, black,tarry stools or bright, red blood in stools : Negative for hematuria Musc Musc: Negative for balance problems, muscle aches/ myalgia, muscle weakness or joint pain Skin Skin: Negative non-healing lesions, unusual bruising or rash Neuro Neuro: Positive for weakness; negative for frequent falls, headache(s), double vision, dizziness, lightheadedness, orthostatic symptoms, blurry vision or lack of coordination Andres Hematologic/Lymphatic: Negative for easy bruising or easy bleeding Endo Endo: Positive for fatigue (ongoing); negative for excessive sweating, cold intolerance, heat intolerance, increased thirst/drinking or hair loss Psych Psych: Negative for anxiety or depression Allergy Allergy/Immunology: Negative for throat swelling, Negative for tongue swelling, Negative for hives, Negative for rash, Negative for lip swelling Cardiology Exam Const Appearance: cooperative, healthy appearing, well developed, well groomed and no acute distress Nutritional Appearance: well nourished and average body habitus Orientation: alert, awake and oriented x3 Head Head: normal to inspection, normocephalic and atraumatic Ears: hearing grossly normal bilaterally and external ears normal Nose: external nose normal, nasal mucous membranes and turbinates normal, nares normal, septum normal, no nasal discharge Face and Sinus: face symmetric Mouth: oral mucosae normal, tongue normal, oropharynx normal and moist mucous membranes Teeth and gingiva: dentition normal Throat: posterior oropharynx normal, tonsils normal and uvula midline Eyes General: appearance normal, both eyes and all related structures Eyelids: eyelids normal Conjunctivae: conjunctivae normal Pupils: PERRL, normal by confrontation and accommodation normal EOM: EOM intact bilaterally Neck Neck: normal visual inspection, trachea midline and no JVD JVD: +5 Carotids: normal carotid upstroke and bounding pulses Chest Chest inspection: normal inspection of the chest, symmetric chest movement and normal respiratory effort Auscultation: Bilateral: Clear to Auscultation Cardio Palpation: normal PMI Rate: regular rate Rhythm: regular rhythm Heart sounds: S1 normal, S2 normal and normal, physiologic split S2; negative rub, gallop or murmur GI GI: normal to inspection, soft, no hepatosplenomegaly and bowel sounds present Neuro General: alert, awake, oriented x3, no focal sensory deficit, gait normal and moves all extremities Skin Skin: no rashes or lesions noted Extremities Pulses: Normal: Right Femoral Pulse, Left Femoral Pulse, Right Dorsalis Pedis Pulse, Left Dorsalis Pedis Pulse, Right Posterior Tibial Pulse, Left Posterior Tibial Pulse, Right Radial Pulse, Left Radial Pulse Lower Extremity Edema: None: Bilateral Musculoskel Musculoskeletal: No joint tenderness Psych Psychological: normal affect Assessment AND Plan 1. Acute on chronic systolic CHF (congestive heart failure) I50.23 Plan He does have a history of congestive heart failure [place] [employer] class II-III AHA stage C. He is on carvedilol which will be continued. He is also on Lasix which would also be continued. I have asked him to watch his weight as well as his salt intake closely. I suspect the above is on the basis of his coronary artery disease, previous hypertension and may be some pacemaker induced cardiomyopathy. 2. Ischemic cardiomyopathy I25.5 Plan He has a history of ischemic cardia myopathy as noted with his estimated ejection fraction of 25-30% medications are noted as above. I am hesitant to put him on an SUSAN inhibitor, ARB or Entresto. 3. Essential hypertension I10 Plan He does have a history of essential hypertension well-controlled on the current medical therapy and no major changes will be made with regard to the above. 4. 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 Cotto; 06/25/05, Sternal Dehiscence strnal rewiring AND debridement Plan He is status post carotid bypass surgery his last catheterization in 2014 was enumerated above. He does have a patent left internal mammary artery to the left anterior descending artery. He has had stable angina. Certainly due to his increased creatinine I am hesitant to perform any invasive therapy. 5. Cardiac pacemaker Z95.0 12/14 Implantable Loop Recorder; 02/12/09 Removal of Loop Recorder; PPM Implant 05/2014 Plan He does have a permanent pacemaker implanted. He would continue to follow up here in our pacemaker clinic. Thank you for allowing me to participate in the care of your patient. 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 mg/dL Normal UR CREAT 197.00 LAB L501.1930 <11.9 mg/dL High 216.3 PROTEIN,UR.R AN. LAB L501.1940 0-200 mg/g CRE High PROT:CRE 1098 RATIO Performed By: #### L501.0900 #### [facility] [address] [place], [address] KIDNEY AND BLADDER Observed: 01/13/2018 Status: F Source: [facility] 11:11 AM [facility] REPOSITORY [facility] Imaging Services [address] [place] [address] Kidney and Bladder MR#: [id number] Acct: [id number] Name: HEATH OTTO Rep #: [id number] : 1935 M 82 From: Zacarias Mike MD PCP: Salima Tuttle MD Status: REG CLI Study: Kidney and Bladder Date of Exam: 01/13/18 Exam# [id number] Ordering Dr: Nuha Rivera DO STUDY: RENAL ULTRASOUND - COMPLETE REASON FOR EXAM: Male, 82 years old. Chronic kidney disease stage IV. TECHNIQUE: Ultrasound evaluation of the kidneys was performed with real-time and static alvarado-scale imaging. COMPARISON: CT abdomen pelvis August 04, 2017 FINDINGS: RIGHT KIDNEY: Normal location of the right kidney, which is normal in size. The right kidney measures 12.3 x 5.2 x 5.7 cm. There is a normal cortex of the right kidney. The renal cortex measures 1.3 cm. There are multiple right renal cortical cysts. The largest is at the superior lateral margin of the kidney, measuring 4.3 x 5.1 x 6.1 cm. A second 4.0 x 4.1 x 4.0 cm cortical cyst is seen at the lower pole. There are no right renal calculi. There is no right hydronephrosis. DISTAL RIGHT URETER: There is non-visualization of the distal right ureter. There is no demonstrated right ureterovesical junction calculus. There is a visualized right ureteral jet. LEFT KIDNEY: Normal location of the left kidney, which is normal in size. The left kidney measures 11.7 x 6.1 x 5.0 cm. There is a normal cortex of the left kidney. The renal cortex measures 1.1 cm. There are multiple left renal cortical cysts. One at the upper pole is 3.1 x 2.7 x 2.5 cm. A second at the mid pole is 2.2 x 3.4 x 2.2 cm. There are no left renal calculi. There is no left hydronephrosis. BLADDER: Empty urinary bladder at the time of scanning. Evaluation of bladder wall thickness or mass within the urinary bladder is precluded. There are no demonstrated bladder calculi. US/Kidney and Bladder IMPRESSION: Bilateral renal cortical cysts again noted. No hydronephrosis. Electronically Signed: Vamshi Mike MD at 16:57 EST , Service support , CC: Salima Tuttle MD; Nuha Rivera DO Field Observer: Signed PROTEIN+CREATININE Collected: Status: F Source: [facility],URINE 01/12/2018 3:41 PM [facility] REPOSITORY TYPE CODE TESTS RESULT OUT OF RANGE REFERENCE UNITS LAB L501.1200 NO RANGE EST. mg/dL Normal UR CREAT 205.00 LAB L501.1930 <11.9 mg/dL High 198.6 PROTEIN,UR.R AN. LAB L501.1940 0-200 mg/g CRE High PROT:CRE 969 RATIO Performed By: #### L501.0900 #### [facility] [address] [place], [address] IMMUNOFIXATION URINE Collected: 01/12/2018 Status: F Source: [facility] 3:41 PM [facility] REPOSITORY TYPE CODE TESTS RESULT OUT OF RANGE REFERENCE UNITS LAB L3600.4030 . Normal JASMIN Urine Comment Result Comment: No monoclonality detected. Performed at: - [facility] [id number] Fleet Administrator: Isaias Walters PhD, Phone: [phone] Performed By: #### L3600.4030 #### [facility] (refer to report for specific site) refer to report for address and phone number CARDIOLOGY VISIT Observed: 01/06/2018 Status: F Source: [facility] REPORT 6:43 AM [facility] REPOSITORY [facility] [address] [place], [place] [address] OFFICE VISIT Date of Service: 12/29/17 MR#: [id number] Acct: [id number] Name: HEATH OTTO Rep #: [id number] : 1935 Provider: Clari Jameson Age/Sex: 82/M Location: [facility] Status: Signed HPI HPI Chief Complaint: LASIX Details: HEATH OTTO, is a 82 M who presents to the office today for a cardiovascular follow up- we have been following him closely for his increased SOB, fatigue and chest pain. He has a history of coronary artery disease with bypass surgery in 2006. He had an RUSH to the LAD, SVG to the circumflex. Heart catheterization in 2014 demonstrated widely patent stent in the proximal left main and proximal circumflex, 80% stenosis in the mid LAD, patent previously placed stent in the proximal circumflex, patent stent in the obtuse marginal, patent RUSH to the LAD. 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 He has been intolerant to statins due to significant myalgias. Pt sts that since he was in here last his energy level has improved somewhat. He is needing to rest. He has not needed any NTG. He still feels that he is SOB with exertion. He needed to stop 3 times coming up to the office( when this started a 3 months ago he was in a WC) This was because he was SOB. He does not feel that this has worsened since he last visit. He does not have any palpitations. He still have dizziness, this is when he is SOB that he notes this. He does not have any edema. He is in the process of establishing with nephrology Intake Vital Signs12/29/17 Height 5 ft 7 in 12/29/17 Weight: 181 lb 12/29/17 Body Mass Index (BMI) 28.3 12/29/17 Blood Pressure 118/64 12/29/17 Blood Pressure Location Lt brachial Intake Visit Reasons: 6 wk FU Computer Aided Design Operator Required: No Accompanied by: none Is patient in pain?: No Allergies Penicillins Allergy (Verified 12/29/17 09:29) Anaphylaxis rosuvastatin calcium [From Crestor] Allergy (Verified 12/29/17 09:29) legs hurt Noxtnog-Fro-Bky Reductase Inhibitor Allergy (Verified 12/29/17 09:29) body aches amlodipine [From Norvasc] Adverse Reaction (Intermediate, Verified 12/29/17 09:29) dizzy Medications Folic Acid 5 mg PO QHS 03/12/14 [History Confirmed 12/29/17] Aspirin [Aspirin, Baby] 81 mg PO QHS 04/14/14 [History Confirmed 12/29/17] Multivitamins,Therapeutic [Multivitamin] 1 tab PO QHS 04/14/14 [History Confirmed 12/29/17] Ubidecarenone [Q-Sorb Co Q-10] 100 mg PO QHS 02/25/16 [History Confirmed 12/29/17] metformin ER 500 mg tablet,extended release 24 hr 500 mg PO DAILY 90 Days #90 06/04/17 [History Confirmed 12/29/17] nitroglycerin 0.4 mg sublingual tablet 0.4 mg SUBLINGUAL Q5M PRN #25 tab 06/05/17 [Rx Confirmed 12/29/17] clopidogrel 75 mg tablet 75 mg PO QHS #90 tab 09/17/17 [Rx Confirmed 12/29/17] carvedilol 3.125 mg tablet 3.125 mg PO BID #60 tab 11/13/17 [Rx Confirmed 12/29/17] hydrocodone 5 mg-acetaminophen 325 mg tablet 1 tab PO Q6H PRN 12/02/17 [History Confirmed 12/29/17] omeprazole magnesium 20 mg tablet,delayed release 20 mg PO DAILY #30 tab 12/02/17 [Rx Confirmed 12/29/17] ranolazine ER 500 mg tablet,extended release,12 hr 500 mg PO BID 12/02/17 [History Confirmed 12/29/17] tamsulosin 0.4 mg capsule 0.4 mg PO DAILY 12/02/17 [History Confirmed 12/29/17] furosemide 40 mg tablet 60 mg PO DAILY #120 tab 12/09/17 [Rx Confirmed 12/29/17] 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) HTN (hypertension) (Chronic) HLD (hyperlipidemia) (Chronic) 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) Cardiac pacemaker (Chronic) NSTEMI (non-ST elevated myocardial infarction) (Resolved) Surgical History S/P PTCA (percutaneous transluminal coronary angioplasty) (Chronic) S/P CABG x 2 (Chronic) History of appendectomy (Resolved) History of back surgery (Resolved) History of tonsillectomy and adenoidectomy (Resolved) Family History Father Myocardial infarction Hypertension Heart disease Mother Hypertension Emphysema of lung FH: brain aneurysm Daughter Afib Social History Smoking Status: Former smoker how long ago did patient quit smokin alcohol intake: never substance use type: does not use caffeine: Yes Type: coffee Number of servings: 3 what type of physical activity do you participate in: walking, bicycling frequency: daily duration: 30-45 minutes/day seatbelt use: always do you feel safe at home: Yes ROS Const Const: Positive for fatigue; negative for difficulty sleeping, frequent falls, excessive sweating, headache(s) or weakness Eyes Eyes: Negative for loss of peripheral vision, transient loss of vision, blurry vision, tunnel vision or double vision ENT ENT: Positive for dizziness; negative for headache(s) or balance problems Cardio Chest Pain: No Exacerbation: exercise, activity Palpitations: No Edema: None Muscle aches with walking: None Resp Respiratory: Positive for SOB with activity; negative for SOB at rest, SOB orthopnea\SOB lying down, paroxysmal nocturnal dyspnea or Cough GI GI: Negative nausea, heartburn, black,tarry stools or vomiting : Negative for hematuria Musc Musc: Negative for balance problems, muscle aches/ myalgia, muscle weakness or joint pain Skin Skin: Negative non-healing lesions, unusual bruising or rash Neuro Neuro: Positive for dizziness and lightheadedness; negative for frequent falls, headache(s), weakness, blurry vision, double vision, near syncope or syncope Andres Hematologic/Lymphatic: Negative for easy bruising or easy bleeding Endo Endo: Positive for fatigue; negative for excessive sweating Psych Psych: Negative for anxiety or depression Allergy Allergy/Immunology: Negative for rash Cardiology Exam Const Appearance: cooperative, well developed and frail appearing Orientation: alert, awake and oriented x3 Head Head: normocephalic and atraumatic Mouth: moist mucous membranes Eyes General: appearance normal, both eyes and all related structures Conjunctivae: conjunctivae normal Pupils: PERRL EOM: EOM intact bilaterally Neck Neck: normal visual inspection, no lymphadenopathy and no JVD Carotids: Negative bruit Neck Mass: Negative Neck mass Chest Chest inspection: normal inspection of the chest and symmetric chest movement Auscultation: Bilateral: Clear to Auscultation Cardio Palpation: normal PMI Rate: regular rate Rhythm: regular rhythm Heart sounds: S1 normal and S2 normal; negative rub, gallop or murmur GI GI: normal to inspection, soft, no hepatosplenomegaly and bowel sounds present; negative tender Neuro General: alert, awake, oriented x3, CN's II-XI intact bilaterally and moves all extremities Extremities Pulses: Normal: Right Posterior Tibial Pulse, Left Posterior Tibial Pulse, Right Radial Pulse, Left Radial Pulse Lower Extremity Edema: None: Bilateral Psych Psychological: normal affect Supplemental Info Echocardiogram in 2017 demonstrated Mildly dilated left ventricle. The estimated ejection fraction is 27 %. There is severe global hypokinesis of the left ventricle. Mild tricuspid valve insufficiency. Transmitral and pulmonary venous doppler flow suggestive of impaired relaxation of left ventricle. Compared to prior study, there is no significant change. Assessment AND Plan 1. Chronic combined systolic and diastolic CHF (congestive heart failure) I50.42 BO Herron Feel that patient is at baseline. Will have him continue with current dose of Lasix. We will need to monitor his renal function close sleep. 2. Essential hypertension I10 BO Herron Blood pressure is better controlled today. Will not make any adjustments. 3. Pure hypercholesterolemia E78.00 BO Herron Recent lipid profile demonstrates total cholesterol 145, HDL 37, LDL 80. Patient has been intolerant to statins. We will continue to monitor. 4. Cardiac pacemaker Z95.0 12/14 Implantable Loop Recorder; 02/12/09 Removal of Loop Recorder; PPM Implant 05/2014 Plan - BO Leos Pacemaker is functioning appropriately. We will continue to monitor at routine scheduled pacemaker interrogations. 5. Chronic renal failure, stage 4 (severe) N18.4 Plan - BO Leos Strongly encourage patient to establish with nephrology. Referral has been made. Will have patient stop his Prilosec. We will repeat his BMP next week Patient Instructions - BO Leos Stop your Prilosec, pleae make appt with Dr. Rivera. Get BMP (blood work) next week. Orders Orders: 6. 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 Unfortunately he is having tremors associated with this- today this does not seem to be an issue. For now we will continue him on his 500 mg twice a day. He has been intolerant in the past to Norvasc and isosorbide due to his positional dizziness. 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 transplanted heart: [place] heart Associated angina: with stable angina Coding Level of Care Code Off vis,est,level 3 Diagnoses Chronic combined systolic and diastolic CHF (congestive heart failure) I50.42 Essential hypertension I10 Hypertension type: essential hypertension Pure hypercholesterolemia E78.00 Hyperlipidemia type: pure hypercholesterolemia Cardiac pacemaker Z95.0 Chronic renal failure, stage 4 (severe) N18.4 Atherosclerosis of [place] coronary artery of [place] heart with stable angina pectoris I25.118 [place] vs. transplanted heart: [place] heart Associated angina: with stable angina 12/29/17 1008 <Electronically signed by Clari M Jameson PA> Date Clari SORIANO 01/06/18 0643<Electronically signed by David Fagan MD> Cosigner Signature: Date (if applicable) David Fagan MD CC: Salima Tuttle MD BASIC METABOLIC Collected: 12/16/2017 Status: F Source: [facility] PROFILE ([facility]) 9:54 AM [facility] REPOSITORY TYPE CODE TESTS RESULT OUT OF RANGE REFERENCE UNITS LAB L501.0100 74-106 mg/dL High GLU 214 Result Comment: Glucose result greater than or equal to 200 mg/dL suggests DIABETES MELLITUS per A.D.A. criteria. Please note revised GLUCOSE reference range effective 2017. LAB L501.1000 7-18 mg/dL High BUN 26 LAB L501.1100 0.70-1.30 mg/dL High CREAT,SERUM 2.90 Result Comment: The validity of the calculated GFR AND GFRAA in patients over 70 years has not been determined. Clinical correlation is essential. LAB L501.1110 >60 mL/min Low EST GFR 22 Result Comment: Non- GFR Calc LAB L501.1115 >60 mL/min Low EST GFR - AA 27 Result Comment: GFR Calc LAB L501.1300 10-20 RATIO Low BUN/CRE 9.0 LAB L501.2200 8.5-10.1 mg/dL Normal CA 9.2 LAB L501.5300 136-145 mmol/L Normal NA 138 LAB L501.5600 3.5-5.1 mmol/L Normal K 4.2 LAB L501.5900 98-107 mmol/L Normal CL 102 LAB L501.6100 21.0-32.0 mmol/L Normal CO2 27.0 LAB L501.6200 5-15 Normal GAP 9 Performed By: #### L500.2500 #### [facility] [address] [place], [address] CARDIOLOGY VISIT Observed: 12/10/2017 Status: F Source: [facility] REPORT 3:21 PM [facility] REPOSITORY [facility] [address] [place] [address] OFFICE VISIT Date of Service: 12/09/17 MR#: [id number] Acct: [id number] Name: HEATH OTTO Rep #: [id number] : 1935 Provider: Clari Jameson Age/Sex: 82/M Location: [facility] Status: Signed HPI HPI Details: HEATH OTTO, is a 82 M who presents to the office today for a cardiovascular follow up- we have been following him closely for his increased SOB, fatigue and chest pain. For his chest pain we have been trying to treat with aggressive medical management as a heart catheterization was not pursued immediately due to his renal function. He has a history of coronary artery disease with bypass surgery in 2005. He had an RUSH to the LAD, SVG to the circumflex. Heart catheterization in 2014 demonstrated widely patent stent in the proximal left main and proximal circumflex, 80% stenosis in the mid LAD, patent previously placed stent in the proximal circumflex, patent stent in the obtuse marginal, patent RUSH to the LAD. 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 He has been intolerant to statins due to significant myalgias. Pt thinks that the Ranexa is causing tremors, however he has not needed to use any NTG. He does have some SOB with walking up stairs. He sts that over the last 6 months he has not felt up to walking with his neighbors. He has had some positional dizziness. He does not have any syncope. He does not have any edema. He sts that his weight has been stable at home, he sts that at home he was stayed at 174lbs where his weight is up today. His BP is higher today, he did not take his medications yet this morning. Intake Vital Signs12/09/17 Height 5 ft 7 in 12/09/17 Weight: 183 lb 12/09/17 Body Mass Index (BMI) 28.6 12/09/17 Blood Pressure 144/66 H 12/09/17 Blood Pressure Location Lt brachial Intake Visit Reasons: 1 W FU Computer Aided Design Operator Required: No Accompanied by: None Is patient in pain?: No Allergies Penicillins Allergy (Verified 12/02/17 08:58) Anaphylaxis rosuvastatin calcium [From Crestor] Allergy (Verified 12/02/17 08:58) legs hurt Txnzpze-Fcm-Jsl Reductase Inhibitor Allergy (Verified 12/02/17 08:58) body aches amlodipine [From Norvasc] Adverse Reaction (Intermediate, Verified 12/02/17 08:58) dizzy Medications Folic Acid 5 mg PO QHS 03/12/14 [History Confirmed 12/02/17] Aspirin [Aspirin, Baby] 81 mg PO QHS 04/14/14 [History Confirmed 12/02/17] Multivitamins,Therapeutic [Multivitamin] 1 tab PO QHS 04/14/14 [History Confirmed 12/02/17] Ubidecarenone [Q-Sorb Co Q-10] 100 mg PO QHS 02/25/16 [History Confirmed 12/02/17] metformin ER 500 mg tablet,extended release 24 hr 500 mg PO DAILY 90 Days #90 06/04/17 [History Confirmed 12/02/17] nitroglycerin 0.4 mg sublingual tablet 0.4 mg SUBLINGUAL Q5M PRN #25 tab 06/05/17 [Rx Confirmed 12/02/17] clopidogrel 75 mg tablet 75 mg PO QHS #90 tab 09/17/17 [Rx Confirmed 12/02/17] carvedilol 3.125 mg tablet 3.125 mg PO BID #60 tab 11/13/17 [Rx Confirmed 12/02/17] hydrocodone 5 mg-acetaminophen 325 mg tablet 1 tab PO Q6H PRN 12/02/17 [History Confirmed 12/02/17] omeprazole magnesium 20 mg tablet,delayed release 20 mg PO DAILY #30 tab 12/02/17 [Rx Confirmed 12/02/17] ranolazine ER 500 mg tablet,extended release,12 hr 500 mg PO BID 12/02/17 [History Confirmed 12/02/17] tamsulosin 0.4 mg capsule 0.4 mg PO DAILY 12/02/17 [History Confirmed 12/02/17] furosemide 40 mg tablet 60 mg PO DAILY #120 tab 12/09/17 [Rx Confirmed 12/09/17] Ejection fraction %: 25 to 29 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) HTN (hypertension) (Chronic) HLD (hyperlipidemia) (Chronic) 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) Cardiac pacemaker (Chronic) NSTEMI (non-ST elevated myocardial infarction) (Resolved) Surgical History S/P PTCA (percutaneous transluminal coronary angioplasty) (Chronic) S/P CABG x 2 (Chronic) History of appendectomy (Resolved) History of back surgery (Resolved) History of tonsillectomy and adenoidectomy (Resolved) Family History Father Myocardial infarction Hypertension Heart disease Mother Hypertension Emphysema of lung FH: brain aneurysm Daughter Afib Social History Smoking Status: Former smoker how long ago did patient quit smokin alcohol intake: never substance use type: does not use caffeine: Yes Type: coffee Number of servings: 3 what type of physical activity do you participate in: walking, bicycling frequency: daily duration: 30-45 minutes/day seatbelt use: always do you feel safe at home: Yes ROS Const Const: Positive for fatigue; negative for difficulty sleeping, frequent falls, excessive sweating, headache(s) or weakness Eyes Eyes: Negative for loss of peripheral vision, transient loss of vision, blurry vision, tunnel vision or double vision ENT ENT: Negative for headache(s) or balance problems Cardio Chest Pain: No Exacerbation: exercise, activity Palpitations: No Edema: None Muscle aches with walking: None Resp Respiratory: Positive for SOB with activity; negative for SOB at rest, SOB orthopnea\SOB lying down, paroxysmal nocturnal dyspnea or Cough GI GI: Negative nausea, heartburn, black,tarry stools or vomiting : Negative for hematuria Musc Musc: Negative for balance problems, muscle aches/ myalgia, muscle weakness or joint pain Skin Skin: Negative non-healing lesions, unusual bruising or rash Neuro Neuro: Negative for frequent falls, headache(s), blurry vision, double vision or weakness Andres Hematologic/Lymphatic: Negative for easy bruising or easy bleeding Endo Endo: Positive for fatigue; negative for excessive sweating Psych Psych: Negative for anxiety or depression Allergy Allergy/Immunology: Negative for rash Cardiology Exam Const Appearance: cooperative, well developed and frail appearing Orientation: alert, awake and oriented x3 Head Head: normocephalic and atraumatic Mouth: moist mucous membranes Eyes General: appearance normal, both eyes and all related structures Conjunctivae: conjunctivae normal Pupils: PERRL EOM: EOM intact bilaterally Neck Neck: normal visual inspection, no lymphadenopathy and no JVD Carotids: Negative bruit Neck Mass: Negative Neck mass Chest Chest inspection: normal inspection of the chest and symmetric chest movement Auscultation: Bilateral: Clear to Auscultation Cardio Palpation: normal PMI Rate: regular rate Rhythm: regular rhythm Heart sounds: S1 normal and S2 normal; negative rub, gallop or murmur GI GI: normal to inspection, soft, no hepatosplenomegaly and bowel sounds present; negative tender Neuro General: alert, awake, oriented x3, CN's II-XI intact bilaterally and moves all extremities Extremities Pulses: Normal: Right Posterior Tibial Pulse, Left Posterior Tibial Pulse, Right Radial Pulse, Left Radial Pulse Lower Extremity Edema: None: Bilateral Psych Psychological: normal affect Supplemental Info Echocardiogram in 2017 demonstrated Mildly dilated left ventricle. The estimated ejection fraction is 27 %. There is severe global hypokinesis of the left ventricle. Mild tricuspid valve insufficiency. Transmitral and pulmonary venous doppler flow suggestive of impaired relaxation of left ventricle. Compared to prior study, there is no significant change. Assessment AND Plan 1. Chronic combined systolic and diastolic CHF (congestive heart failure) I50.42 Plan - BO Leos Unfortunately patient still continues to have shortness of breath with exertion. We will increase his Lasix to 60 mg daily. He will repeat a BMP in 1-2 weeks. Patient Instructions - BO Leos Increase your lasix to 60 mg daily. Get your labs done next week. 2. Essential hypertension I10 Plan - BO Leos Patient's blood pressure slightly elevated today however he has taken his morning medication. If his blood pressure remains elevated at his next office visit we will re-add a small dose of Norvasc. 3. 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 Unfortunately he is having tremors associated with this. For now we will continue him on his 500 mg twice a day. He has been intolerant in the past to Norvasc and isosorbide due to his positional dizziness. Although we may need to consider re-adding these medications for better blood pressure control. 4. Pure hypercholesterolemia E78.00 Plan - BO Leos Patient has been intolerant to statins. We will continue to monitor. 5. Cardiac pacemaker Z95.0 12/14 Implantable Loop Recorder; 02/12/09 Removal of Loop Recorder; PPM Implant 05/2014 Plan - BO Leos Pacemaker is functioning appropriately. We will continue to monitor at routine scheduled pacemaker interrogations. Plan Detail Other Orders Orders: Other Medications Changed: From: furosemide (Lasix) Take 40 mg twice a day for 3 day40 mg PO DAILY 120 tabs 3RF s, then once a day Additional Comments - BO Leos The above patient was discussed with Dr. Fagan, he agrees with plan of care. Thank you for allowing us to participate in patient's plan of care, if you have any questions please do not hesitate to call. This note was generated using a voice recognition system and there may be incorrect words, spelling or punctuation errors that were not noted when reviewing the office note prior to saving. Follow Up 12/09/17 (Keep as is) Coding Level of Care Code Off vis,est,level 4 Diagnoses Chronic combined systolic and diastolic CHF (congestive heart failure) I50.42 Essential hypertension I10 Atherosclerosis of [place] coronary artery of [place] heart with stable angina pectoris I25.118 [place] vs. 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 transplanted heart: [place] heart Associated angina: with stable angina Pure hypercholesterolemia E78.00 Hyperlipidemia type: pure hypercholesterolemia Cardiac pacemaker Z95.0 12/09/17 1052 <Electronically signed by Clari SORIANO> Date Clari SORIANO 12/10/17 1521<Electronically signed by David Fagan MD> Cosigner Signature: Date (if applicable) David Fagan MD CC: Salima Tuttle MD CARDIOLOGY VISIT Observed: 12/02/2017 Status: F Source: [facility] REPORT 1:04 PM [facility] [place] REPOSITORY [facility] [address] [place] [address] OFFICE VISIT Date of Service: 12/02/17 MR#: [id number] Acct: [id number] Name: HEATH OTTO Rep #: [id number] : 1935 Provider: Clari Jameson Age/Sex: 82/M Location: [facility] Status: Signed HPI HPI Details: HEATH OTTO, is a 82 M who presents to the office today for a cardiovascular follow up- we have been following him closely for his increased SOB, fatigue and chest pain. He has a history of coronary artery disease with bypass surgery in 2006. He had an RUSH to the LAD, SVG to the circumflex. Heart catheterization in 2014 demonstrated widely patent stent in the proximal left main and proximal circumflex, 80% stenosis in the mid LAD, patent previously placed stent in the proximal circumflex, patent stent in the obtuse marginal, patent RUSH to the LAD. 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 He has been intolerant to statins due to significant myalgias. Two weeks ago we had increased his lasix and added Ranexa. A heart cath was not pursued because of his kidney function. When I had seen pt last week he still noted an increase his in SOB that occurred over the weekend. We had given him IV lasix for 5 days. He feels that this helped with his SOB although his weight is similar. He did decrease his Ranexa to once a day d/t dizziness. His accompanies him today, it is noted that we had previously thought he was on Norvasc and Imdur- sts that these had been discontinued awhile ago for dizziness. Pt sts that since taking the IV lasix his symptoms have improved. He still notes that he is fatigued. 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 He did need to use his NTG last night, it was while he was in bed. He does not have any palpitations. He has not had any significant dizziness. He does not have any edema. 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 Required: No Accompanied by: Is patient in pain?: No Allergies Penicillins Allergy (Verified 12/02/17 08:58) Anaphylaxis rosuvastatin calcium [From Crestor] Allergy (Verified 12/02/17 08:58) legs hurt Jjsdaoj-Gbe-Efe Reductase Inhibitor Allergy (Verified 12/02/17 08:58) body aches amlodipine [From Norvas] Adverse Reaction (Intermediate, Verified 12/02/17 08:58) dizzy Medications Folic Acid 5 mg PO QHS 03/12/14 [History Confirmed 12/02/17] Aspirin [Aspirin, Baby] 81 mg PO QHS 04/14/14 [History Confirmed 12/02/17] Multivitamins,Therapeutic [Multivitamin] 1 tab PO QHS 04/14/14 [History Confirmed 12/02/17] Ubidecarenone [Q-Sorb Co Q-10] 100 mg PO QHS 02/25/16 [History Confirmed 12/02/17] metformin ER 500 mg tablet,extended release 24 hr 500 mg PO DAILY 90 Days #90 06/04/17 [History Confirmed 12/02/17] nitroglycerin 0.4 mg sublingual tablet 0.4 mg SUBLINGUAL Q5M PRN #25 tab 06/05/17 [Rx Confirmed 12/02/17] clopidogrel 75 mg tablet 75 mg PO QHS #90 tab 09/17/17 [Rx Confirmed 12/02/17] carvedilol 3.125 mg tablet 3.125 mg PO BID #60 tab 11/13/17 [Rx Confirmed 12/02/17] furosemide 40 mg tablet 40 mg PO DAILY #120 tab 11/17/17 [Rx Confirmed 12/02/17] hydrocodone 5 mg-acetaminophen 325 mg tablet 1 tab PO Q6H PRN 12/02/17 [History Confirmed 12/02/17] omeprazole magnesium 20 mg tablet,delayed release 20 mg PO DAILY #30 tab 12/02/17 [Rx Confirmed 12/02/17] ranolazine ER 500 mg tablet,extended release,12 hr 500 mg PO BID 12/02/17 [History Confirmed 12/02/17] tamsulosin 0.4 mg capsule 0.4 mg PO DAILY 12/02/17 [History Confirmed 12/02/17] 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) HTN (hypertension) (Chronic) HLD (hyperlipidemia) (Chronic) 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) Cardiac pacemaker (Chronic) NSTEMI (non-ST elevated myocardial infarction) (Resolved) Surgical History S/P PTCA (percutaneous transluminal coronary angioplasty) (Chronic) S/P CABG x 2 (Chronic) History of appendectomy (Resolved) History of back surgery (Resolved) History of tonsillectomy and adenoidectomy (Resolved) Family History Father Myocardial infarction Hypertension Heart disease Mother Hypertension Emphysema of lung FH: brain aneurysm Daughter Afib Social History Smoking Status: Former smoker how long ago did patient quit smokin alcohol intake: never substance use type: does not use caffeine: Yes Type: coffee Number of servings: 3 what type of physical activity do you participate in: walking, bicycling frequency: daily duration: 30-45 minutes/day seatbelt use: always do you feel safe at home: Yes ROS Const Const: Positive for fatigue and weakness; negative for difficulty sleeping, frequent falls, excessive sweating or headache(s) Eyes Eyes: Negative for loss of peripheral vision, transient loss of vision, blurry vision, tunnel vision or double vision ENT ENT: Negative for headache(s) or balance problems Cardio Chest Pain: Yes Frequency: daily Onset: at rest, exercise Exacerbation: exercise, activity Palpitations: No Edema: None Muscle aches with walking: None Resp Respiratory: Positive for SOB with activity; negative for SOB at rest, SOB orthopnea\SOB lying down, paroxysmal nocturnal dyspnea or Cough GI GI: Negative nausea, heartburn, black,tarry stools or vomiting : Negative for hematuria Musc Musc: Negative for balance problems, muscle aches/ myalgia, muscle weakness or joint pain Skin Skin: Negative non-healing lesions, unusual bruising or rash Neuro Neuro: Positive for weakness; negative for frequent falls, headache(s), blurry vision or double vision Andres Hematologic/Lymphatic: Negative for easy bruising or easy bleeding Endo Endo: Positive for fatigue; negative for excessive sweating Psych Psych: Negative for anxiety or depression Allergy Allergy/Immunology: Negative for rash Cardiology Exam Const Appearance: cooperative, well developed and frail appearing Orientation: alert, awake and oriented x3 Head Head: normocephalic and atraumatic Mouth: moist mucous membranes Eyes General: appearance normal, both eyes and all related structures Conjunctivae: conjunctivae normal Pupils: PERRL EOM: EOM intact bilaterally Neck Neck: normal visual inspection, no lymphadenopathy and no JVD Carotids: Negative bruit Neck Mass: Negative Neck mass Chest Chest inspection: normal inspection of the chest and symmetric chest movement Auscultation: Bilateral: Clear to Auscultation Cardio Palpation: normal PMI Rate: regular rate Rhythm: regular rhythm Heart sounds: S1 normal and S2 normal; negative rub, gallop or murmur GI GI: normal to inspection, soft, no hepatosplenomegaly and bowel sounds present; negative tender Neuro General: alert, awake, oriented x3, CN's II-XI intact bilaterally and moves all extremities Extremities Pulses: Normal: Right Posterior Tibial Pulse, Left Posterior Tibial Pulse, Right Radial Pulse, Left Radial Pulse Lower Extremity Edema: None: Bilateral Psych Psychological: normal affect Supplemental Info Echocardiogram in 2017 demonstrated Mildly dilated left ventricle. The estimated ejection fraction is 27 %. There is severe global hypokinesis of the left ventricle. Mild tricuspid valve insufficiency. Transmitral and pulmonary venous doppler flow suggestive of impaired relaxation of left ventricle. Compared to prior study, there is no significant change. Assessment AND Plan 1. 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 In further discussing with his it was discovered that he was not on Norvasc or isosorbide. He had discontinued these some time ago for his dizziness. We will have him increase his Ranexa to twice a day. He will follow-up closely. His discomfort the way he is describing could also be related to G GI. We will add omeprazole. Would like to medically manage patient as we are hesitant to proceed with a heart catheterization due to patient's renal function. Patient Instructions - BO Leos Increase your Ranexa to twice a day, I will see you 1-2 weeks. I will also add a medication for heart burn 2. Essential hypertension I10 Plan - BO Leos Patient's blood pressure is normotensive today. Will monitor closely. May consider adding other antianginals that could affect his blood pressure. 3. Pure hypercholesterolemia E78.00 Plan - BO Leos Patient has been intolerant to statins. We will continue to monitor. 4. Cardiomyopathy, ischemic I25.5 Plan - BO Leos Patient does have ischemic cardiomyopathy. He will continue with current medications. We will continue to monitor by history, exam and echocardiograms as deemed appropriate. 5. Chronic combined systolic and diastolic CHF (congestive heart failure) I50.42 Plan - BO Leos Congestive heart failure appears to be controlled. For now he will continue with his current dose of diuretics. We will likely repeat a BMP next week. 6. Cardiac pacemaker Z95.0 12/14 Implantable Loop Recorder; 02/12/09 Removal of Loop Recorder; PPM Implant 05/2014 Plan - BO Leos Pacemaker is functioning appropriately. We will continue to monitor at routine scheduled pacemaker interrogations. Plan Detail Other Medications New: Discontinued: Additional Comments - BO Leos The above patient was discussed with Dr. Fagan, he agrees with plan of care. Thank you for allowing us to participate in patient's plan of care, if you have any questions please do not hesitate to call. This note was generated using a voice recognition system and there may be incorrect words, spelling or punctuation errors that were not noted when reviewing the office note prior to saving. Coding Level of Care Code Off vis,est,level 4 Diagnoses Atherosclerosis of [place] coronary artery of [place] heart with stable angina pectoris I25.118 [place] vs. transplanted heart: [place] heart Associated angina: with stable angina Essential hypertension I10 Hypertension type: essential hypertension Pure hypercholesterolemia E78.00 Hyperlipidemia type: pure hypercholesterolemia Cardiomyopathy, ischemic I25.5 Chronic combined systolic and diastolic CHF (congestive heart failure) I50.42 Cardiac pacemaker Z95.0 Coding Level of Care Code Off vis,est,level 4 Diagnoses Atherosclerosis of [place] coronary artery of [place] heart with stable angina pectoris I25.118 [place] vs. transplanted heart: [place] heart Associated angina: with stable angina Essential hypertension I10 Hypertension type: essential hypertension Pure hypercholesterolemia E78.00 Hyperlipidemia type: pure hypercholesterolemia Cardiomyopathy, ischemic I25.5 Chronic combined systolic and diastolic CHF (congestive heart failure) I50.42 Cardiac pacemaker Z95.0 12/02/17 1045 <Electronically signed by Clari SORIANO> Date Clari SORIANO 12/02/17 1304<Electronically signed by David Fagan MD> Cosigner Signature: Date (if applicable) David Fagan MD CC: Salima Tuttle MD BASIC METABOLIC Collected: 11/27/2017 Status: F Source: [facility]ALIB PROFILE (BMP) 8:27 AM [facility] REPOSITORY TYPE CODE TESTS RESULT OUT OF RANGE REFERENCE UNITS LAB L501.0100 74-106 mg/dL High GLU 163 Result Comment: Fasting Glucose result greater than or equal to 126 mg/dL suggests DIABETES MELLITUS per A.D.A. criteria. Please note revised GLUCOSE reference range effective 2017. LAB L501.1000 7-18 mg/dL High BUN 28 LAB L501.1100 0.70-1.30 mg/dL High CREAT,SERUM 2.50 Result Comment: The validity of the calculated GFR AND GFRAA in patients over 70 years has not been determined. Clinical correlation is essential. LAB L501.1110 >60 mL/min Low EST GFR 27 Result Comment: Non- GFR Calc LAB L501.1115 >60 mL/min Low EST GFR - AA 32 Result Comment: GFR Calc LAB L501.1300 10-20 RATIO Normal BUN/CRE 11.2 LAB L501.2200 8.5-10.1 mg/dL CA Normal 9.0 LAB L501.5300 136-145 mmol/L NA Normal 139 LAB L501.5600 3.5-5.1 mmol/L K Normal 4.1 LAB L501.5900 98-107 mmol/L CL Normal 103 LAB L501.6100 21.0-32.0 mmol/L Normal CO2 26.0 LAB L501.6200 5-15 Normal GAP 10 Performed By: #### L500.2500 #### [facility] [address] [place], [address] CARDIOLOGY VISIT Observed: 11/26/2017 Status: F Source: [facility] REPORT 5:08 PM [facility] REPOSITORY [facility] [address] [place] [address] OFFICE VISIT Date of Service: 11/23/17 MR#: [id number] Acct: [id number] Name: HEATH OTTO Rep #: [id number] : 1935 Provider: Clari Jameson Age/Sex: 82/M Location: [facility] Status: Signed HPI HPI Details: HEATH OTTO, is a 82 M who presents to the office today for to the office today for a follow up appt. he has a history of coronary artery disease with bypass surgery in 2005. He had an RUSH to the LAD, SVG to the circumflex. Heart catheterization in 2014 demonstrated widely patent stent in the proximal left main and proximal circumflex, 80% stenosis in the mid LAD, patent previously placed stent in the proximal circumflex, patent stent in the obtuse marginal, patent RUSH to the LAD. 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 He has been intolerant to statins due to significant myalgias. He was here last week for an urgent appt for chest pain and increased SOB. We had increased his lasix to 40 mg BID for 3 days and added Ranexa. A heart cath was not pursued because of his kidney function. Patient states that on Thursday he started to feel that he was improving however the weekend he lacked energy and was significantly short of breath with any activity. He still does have some lower extremity edema. He is not orthopneic. He does not have any palpitations. He does feel that since starting taking his Ranexa he has had more tremors. He wonders if he can cut this back to once a day. Intake Vital Signs11/23/17 Blood Pressure 130/66 11/23/17 Blood Pressure Position Standing 11/23/17 Height 5 ft 7 in Intake Visit Reasons: PER MMM Allergies Penicillins Allergy (Verified 11/23/17 08:36) Anaphylaxis rosuvastatin calcium [From Crestor] Allergy (Verified 11/23/17 08:36) legs hurt Lougyny-Xvo-Qda Reductase Inhibitor Allergy (Verified 11/23/17 08:36) body aches amlodipine [From Norvas] Adverse Reaction (Intermediate, Verified 11/23/17 08:36) dizzy Medications Folic Acid 5 mg PO QHS 03/12/14 [History Confirmed 11/17/17] Aspirin [Aspirin, Baby] 81 mg PO QHS 04/14/14 [History Confirmed 11/17/17] Multivitamins,Therapeutic [Multivitamin] 1 tab PO QHS 04/14/14 [History Confirmed 11/17/17] Ubidecarenone [Q-Sorb Co Q-10] 100 mg PO QHS 02/25/16 [History Confirmed 11/17/17] Isosorbide Mononitrate [Monoket] 20 mg PO BID@0800,1500 #60 tab 03/07/16 [Rx Confirmed 11/17/17] amlodipine 5 mg tablet 5 mg PO QDAY tab 06/04/17 [History Confirmed 11/17/17] metformin ER 500 mg tablet,extended release 24 hr 500 mg PO DAILY 90 Days #90 06/04/17 [History Confirmed 11/17/17] nitroglycerin 0.4 mg sublingual tablet 0.4 mg SUBLINGUAL Q5M PRN #25 tab 06/05/17 [Rx Confirmed 11/17/17] Gabapentin [Neurontin] 100 mg PO TID #100 cap 08/06/17 [Rx Confirmed 11/17/17] clopidogrel 75 mg tablet 75 mg PO QHS #90 tab 09/17/17 [Rx Confirmed 11/17/17] carvedilol 3.125 mg tablet 3.125 mg PO BID #60 tab 11/13/17 [Rx Confirmed 11/17/17] furosemide 40 mg tablet 40 mg PO DAILY #120 tab 11/17/17 [Rx Confirmed 11/17/17] ranolazine ER 500 mg tablet,extended release,12 hr 500 mg PO BID #60 tab 11/17/17 [Rx Confirmed 11/17/17] [facility] Medical History Ischemic cardiomyopathy (Chronic) Right bundle branch block (Chronic) Complete AV block, 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) HTN (hypertension) (Chronic) HLD (hyperlipidemia) (Chronic) 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) Cardiac pacemaker (Chronic) NSTEMI (non-ST elevated myocardial infarction) (Resolved) Surgical History S/P PTCA (percutaneous transluminal coronary angioplasty) (Chronic) S/P CABG x 2 (Chronic) History of appendectomy (Resolved) History of back surgery (Resolved) History of tonsillectomy and adenoidectomy (Resolved) Family History Father Myocardial infarction Hypertension Heart disease Mother Hypertension Emphysema of lung FH: brain aneurysm Daughter Afib Social History Smoking Status: Former smoker how long ago did patient quit smokin alcohol intake: never substance use type: does not use caffeine: Yes Type: coffee Number of servings: 3 what type of physical activity do you participate in: walking, bicycling frequency: daily duration: 30-45 minutes/day seatbelt use: always do you feel safe at home: Yes ROS Const Const: Positive for fatigue and weakness; negative for difficulty sleeping, frequent falls, excessive sweating or headache(s) Eyes Eyes: Negative for loss of peripheral vision, transient loss of vision, blurry vision, tunnel vision or double vision ENT ENT: Positive for dizziness; negative for headache(s), Nosebleed/epistaxis or balance problems Cardio Chest Pain: Yes Frequency: daily Onset: at rest, exercise Exacerbation: exercise, activity Palpitations: No Edema: Bilateral, Left (LLE trace edema) Muscle aches with walking: None Resp Respiratory: Positive for SOB with activity and Cough; negative for SOB at rest, SOB orthopnea\SOB lying down or paroxysmal nocturnal dyspnea GI GI: Negative nausea, heartburn, black,tarry stools or vomiting : Negative for hematuria Musc Musc: Negative for balance problems, muscle aches/ myalgia, muscle weakness or joint pain Skin Skin: Negative non-healing lesions, unusual bruising or rash Neuro Neuro: Positive for weakness, dizziness, lightheadedness, orthostatic symptoms, lack of coordination and other (Tremors); negative for frequent falls, headache(s), blurry vision, double vision, near syncope or syncope Andres Hematologic/Lymphatic: Negative for easy bruising or easy bleeding Endo Endo: Positive for fatigue; negative for excessive sweating or increased thirst/drinking Psych Psych: Negative for anxiety or depression Allergy Allergy/Immunology: Negative for hives, Negative for rash Cardiology Exam Const Appearance: cooperative, well developed, frail appearing, ill appearing and other (Ambulate with cane) Orientation: alert, awake and oriented x3 Head Head: normocephalic and atraumatic Mouth: moist mucous membranes Eyes General: appearance normal, both eyes and all related structures Conjunctivae: conjunctivae normal Pupils: PERRL EOM: EOM intact bilaterally Neck Neck: normal visual inspection, no lymphadenopathy and no JVD Carotids: Negative bruit Neck Mass: Negative Neck mass Chest Chest inspection: normal inspection of the chest and symmetric chest movement Auscultation: Bilateral: Clear to Auscultation Cardio Palpation: normal PMI Rate: regular rate Rhythm: regular rhythm Heart sounds: S1 normal and S2 normal; negative rub, gallop or murmur GI GI: normal to inspection, soft, no hepatosplenomegaly and bowel sounds present; negative tender Neuro General: alert, awake, oriented x3, CN's II-XI intact bilaterally and moves all extremities Extremities Pulses: Normal: Right Posterior Tibial Pulse, Left Posterior Tibial Pulse, Right Radial Pulse, Left Radial Pulse Lower Extremity Edema: None: Bilateral Psych Psychological: normal affect Supplemental Info Echocardiogram in 2017 demonstrated Mildly dilated left ventricle. The estimated ejection fraction is 27 %. There is severe global hypokinesis of the left ventricle. Mild tricuspid valve insufficiency. Transmitral and pulmonary venous doppler flow suggestive of impaired relaxation of left ventricle. Compared to prior study, there is no significant change. Assessment AND Plan 1. Acute on chronic systolic CHF (congestive heart failure) I50.23 Plan - BO Leos Will have patient be set up for IV Lasix for 5 days. Will obtain a BMP on day 5. He was advised that if he has any worsening symptoms that he should go to the emergency room. Patient Instructions - BO Leos Decrease your Ranexa to once a day. Continue with your lasix 40 mg in the morning. I will get you set up to have IV lasix for 5 days. I will see you next week. 2. Essential hypertension I10 Plan - BO Leos Blood pressure is adequately controlled. For now will not make any adjustments. He is not orthostatic that would coincide with his dizziness. 3. Pure hypercholesterolemia E78.00 Plan - BO Leos Patient has been intolerant to statins. We will continue to monitor. 4. Cardiac pacemaker Z95.0 12/14 Implantable Loop Recorder; 02/12/09 Removal of Loop Recorder; PPM Implant 05/2014 Plan - BO Leos Pacemaker is functioning appropriately. We will continue to monitor at routine scheduled pacemaker interrogations. 5. 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 Because he does not like the side effects of Ranexa will have him decrease this to once a day. Will consider increasing this to twice a day at his next office visit. Plan Detail Additional Comments - BO Leos With patient's continued acute symptoms would like to see patient in 10 days. The above patient was discussed with Dr. Fagan, he agrees with plan of care. Thank you for allowing us to participate in patient's plan of care, if you have any questions please do not hesitate to call. This note was generated using a voice recognition system and there may be incorrect words, spelling or punctuation errors that were not noted when reviewing the office note prior to saving. 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 transplanted heart: [place] heart Associated angina: with stable angina 11/23/17 1008 <Electronically signed by Clari Jameson PA> Date Clari SORIANO 11/26/17 1708<Electronically signed by David Fagan MD> Cosigner Signature: Date (if applicable) David Fagan MD CC: Salima Tuttle MD CARDIOLOGY VISIT Observed: 11/19/2017 Status: F Source: [facility] REPORT 10:25 AM [facility] REPOSITORY [facility] [address] [place] [address] OFFICE VISIT Date of Service: 11/17/17 MR#: [id number] Acct: [id number] Name: HEATH OTTO Rep #: [id number] : 1935 Provider: Clari Jameson Age/Sex: 82/M Location: [facility] [place] Status: Signed [facility] Details: HEATH OTTO, is a 82 M who presents to the office today for an urgent appt. he has a history of coronary artery disease with bypass surgery in 2005. He had an RUSH to the LAD, SVG to the circumflex. Heart catheterization in 2014 demonstrated widely patent stent in the proximal left main and proximal circumflex, 80% stenosis in the mid LAD, patent previously placed stent in the proximal circumflex, patent stent in the obtuse marginal, patent RUSH to the LAD. 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 He has been intolerant to statins due to significant myalgias. Pt sts that he has had an increase in SOB over the last 6 weeks. He has been working his his PCP. He was given antx for this. He does not feel that this was any better. He sts that he has had chest pain that wakes him up at night. He has used NTG for this and it helps. He rates it as an 8/10. He has used NTG approx 8 times, this is new for him. He feels that his is more SOB with exertion, he was tired walking up to the office, This is new. He does occasionally have orthopnea. He did use an extra lasix and this did help. He does not feels any palpitations. He has felt like he might pass out. He has had an increase in swelling. Intake Vital Signs11/17/17 Height 5 ft 7 in 11/17/17 Weight: 182 lb 11/17/17 Body Mass Index (BMI) 28.5 11/17/17 Blood Pressure 112/48 11/17/17 Blood Pressure Location Lt brachial Intake Visit Reasons: bilateral edema feet/ankles Computer Aided Design Operator Required: No Accompanied by: None Is patient in pain?: No Allergies Penicillins Allergy (Verified 11/17/17 10:03) Anaphylaxis rosuvastatin calcium [From Crestor] Allergy (Verified 11/17/17 10:03) legs hurt Oghkgjn-Ovx-Nvl Reductase Inhibitor Allergy (Verified 11/17/17 10:03) body aches amlodipine [From Norvasc] Adverse Reaction (Intermediate, Verified 11/17/17 10:03) dizzy Medications Folic Acid 5 mg PO QHS 03/12/14 [History Confirmed 11/17/17] Aspirin [Aspirin, Baby] 81 mg PO QHS 04/14/14 [History Confirmed 11/17/17] Multivitamins,Therapeutic [Multivitamin] 1 tab PO QHS 04/14/14 [History Confirmed 11/17/17] Ubidecarenone [Q-Sorb Co Q-10] 100 mg PO QHS 02/25/16 [History Confirmed 11/17/17] Isosorbide Mononitrate [Monoket] 20 mg PO BID@0800,1500 #60 tab 03/07/16 [Rx Confirmed 11/17/17] amlodipine 5 mg tablet 5 mg PO QDAY tab 06/04/17 [History Confirmed 11/17/17] metformin ER 500 mg tablet,extended release 24 hr 500 mg PO DAILY 90 Days #90 06/04/17 [History Confirmed 11/17/17] nitroglycerin 0.4 mg sublingual tablet 0.4 mg SUBLINGUAL Q5M PRN #25 tab 06/05/17 [Rx Confirmed 11/17/17] Gabapentin [Neurontin] 100 mg PO TID #100 cap 08/06/17 [Rx Confirmed 11/17/17] clopidogrel 75 mg tablet 75 mg PO QHS #90 tab 09/17/17 [Rx Confirmed 11/17/17] carvedilol 3.125 mg tablet 3.125 mg PO BID #60 tab 11/13/17 [Rx Confirmed 11/17/17] furosemide 40 mg tablet 40 mg PO DAILY #120 tab 11/17/17 [Rx Confirmed 11/17/17] ranolazine ER 500 mg tablet,extended release,12 hr 500 mg PO BID #60 tab 11/17/17 [Rx Confirmed 11/17/17] Ejection fraction %: 25 to 29 Nurse's Note: Heart cath teaching done with patient. 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) HTN (hypertension) (Chronic) HLD (hyperlipidemia) (Chronic) 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) Cardiac pacemaker (Chronic) NSTEMI (non-ST elevated myocardial infarction) (Resolved) Surgical History S/P PTCA (percutaneous transluminal coronary angioplasty) (Chronic) S/P CABG x 2 (Chronic) History of appendectomy (Resolved) History of back surgery (Resolved) History of tonsillectomy and adenoidectomy (Resolved) Family History Father Myocardial infarction Hypertension Heart disease Mother Hypertension Emphysema of lung FH: brain aneurysm Daughter Afib Social History Smoking Status: Former smoker how long ago did patient quit smokin alcohol intake: never substance use type: does not use caffeine: Yes Type: coffee Number of servings: 3 what type of physical activity do you participate in: walking, bicycling frequency: daily duration: 30-45 minutes/day seatbelt use: always do you feel safe at home: Yes ROS Const Const: Positive for weakness and fatigue; negative for fever(s) or headache(s) Eyes Eyes: Negative for blind spots, loss of peripheral vision or transient loss of vision ENT ENT: Negative for headache(s), dizziness, tinnitus or Nosebleed/epistaxis Cardio Chest Pain: Yes Palpitations: No Edema: None Muscle aches with walking: None Resp Respiratory: Positive for SOB with activity and Cough; negative for SOB at rest or SOB orthopnea\SOB lying down GI GI: Negative nausea, vomiting, heartburn or vomiting blood/hematemesis : Negative for hematuria Musc Musc: Negative for muscle aches/ myalgia Neuro Neuro: Positive for weakness; negative for headache(s), dizziness, near syncope, syncope, lightheadedness or orthostatic symptoms Andres Hematologic/Lymphatic: Negative for easy bleeding Endo Endo: Positive for fatigue Cardiology Exam Const Appearance: cooperative, well developed, frail appearing and ill appearing Orientation: alert, awake and oriented x3 Head Head: normocephalic and atraumatic Mouth: moist mucous membranes Eyes General: appearance normal, both eyes and all related structures Conjunctivae: conjunctivae normal Pupils: PERRL EOM: EOM intact bilaterally Neck Neck: normal visual inspection, no lymphadenopathy and no JVD Carotids: Negative bruit Neck Mass: Negative Neck mass Chest Chest inspection: normal inspection of the chest and symmetric chest movement Auscultation: Bilateral: Clear to Auscultation Cardio Palpation: normal PMI Rate: regular rate Rhythm: regular rhythm Heart sounds: S1 normal and S2 normal; negative rub, gallop or murmur GI GI: normal to inspection, soft, no hepatosplenomegaly and bowel sounds present; negative tender Neuro General: alert, awake, oriented x3, CN's II-XI intact bilaterally and moves all extremities Extremities Pulses: Normal: Right Posterior Tibial Pulse, Left Posterior Tibial Pulse, Right Radial Pulse, Left Radial Pulse Lower Extremity Edema: None: Bilateral Psych Psychological: normal affect Supplemental Info Echocardiogram in 2017 demonstrated Mildly dilated left ventricle. The estimated ejection fraction is 27 %. There is severe global hypokinesis of the left ventricle. Mild tricuspid valve insufficiency. Transmitral and pulmonary venous doppler flow suggestive of impaired relaxation of left ventricle. Compared to prior study, there is no significant change. Assessment AND Plan 1. Atherosclerosis of [place] coronary artery of [place] heart with angina pectoris I25.119 Plan - BO Leos Patient does have symptoms concerning for angina. Initially had considered a heart catheterization however patient's baseline creatinine is 2.3. We will add Ranexa at 500 mg twice a day. Patient is currently on isosorbide and Norvasc. Do not feel that we can increase these medications due to his lower blood pressure readings. 2. 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 BNP is elevated. Will have him take 40 mg of Lasix twice a day for 3 days he will then decrease back down to 40 mg daily. Orders Orders: 3. Essential hypertension I10 Plan - BO Leos Will not make any adjustments in his medications at this time. Blood pressure is adequately controlled. 4. Pure hypercholesterolemia E78.00 Plan - BO Leos Patient has been intolerant to statins. 5. Fatigue, unspecified type R53.83 Plan Detail Other Orders Orders: Other Medications New: Discontinued: Additional Comments - BO Leos We will follow-up with patient closely. He has an appointment with me next Thursday morning. Patient and were strongly advised that if his symptoms worsen that he should go to the emergency room. The above patient was discussed with Dr. Fagan, he agrees with plan of care. Thank you for allowing us to participate in patient's plan of care, if you have any questions please do not hesitate to call. This note was generated using a voice recognition system and there may be incorrect words, spelling or punctuation errors that were not noted when reviewing the office note prior to saving. Follow Up 6 Weeks (MMM) Coding Level of Care Code Off vis,est,level 4 Diagnoses Atherosclerosis of [place] coronary artery of [place] heart with angina pectoris I25.119 Associated angina: with unspecified angina [place] vs. 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 Essential hypertension I10 Hypertension type: essential hypertension Pure hypercholesterolemia E78.00 Hyperlipidemia type: pure hypercholesterolemia Fatigue, unspecified type R53.83 Fatigue type: unspecified 11/18/17 0924 <Electronically signed by Clari Jameson PA> Date Clari SORIANO 11/19/17 1025<Electronically signed by David Fagan MD> Cosigner Signature: Date (if applicable) David Fagan MD CC: Salima Tuttle MD PROTHROMBIN TIME W/INR Collected: 11/17/2017 Status: F Source: [facility] 11:19 AM [facility] REPOSITORY TYPE CODE TESTS RESULT OUT OF RANGE REFERENCE UNITS LAB L300.4150 11.7-14.9 SECONDS Normal PROTIME 14.7 LAB L300.4200 Normal INR 1.2 Performed By: #### L300.3900, L300.4310, L100.0100, L500.2500 #### [facility] [address] [place], [place], [id number] PARTIAL THROMBOPLAST Collected: 11/17/2017 Status: F Source: [facility] TIME 11:19 AM [facility] REPOSITORY TYPE CODE TESTS RESULT OUT OF RANGE REFERENCE UNITS LAB L300.4310 24.1-36.2 Seconds Normal PTT 32.0 Performed By: #### L300.3900, L300.4310, L100.0100, L500.2500 #### [facility] [address] [place], [address] CBC W/DIFF, AUTOMATED Collected: 11/17/2017 Status: F Source: [facility] 11:19 AM [facility] REPOSITORY TYPE CODE TESTS RESULT OUT OF RANGE REFERENCE UNITS LAB L100.1000 4.4-11.0 K/mm3 Normal WBC 6.4 LAB L100.1200 4.6-6.2 M/mm3 Low RBC 3.33 LAB L100.1300 13.0-16.5 g/dl Low HGB 10.0 LAB L100.1400 40-54 % Low HCT 31.5 LAB L100.1500 80-94 fL High MCV 94.6 LAB L100.1600 27.0-32.0 pg Normal MCH 30.0 LAB L100.1700 32-36 g/gl Low MCHC 31.7 LAB L100.1810 11.6-14.6 % High RDW CV 17.5 LAB L100.1820 35.1-43.9 fl High RDW SD 59.9 LAB L100.1900 150-450 K/mm3 Normal PLT 307 LAB L100.2000 6.2-12.0 fl Normal MPV 10.3 LAB L100.2100 47-70 % High NEUT% 77.7 LAB L100.2200 19-41 % Low LY% 10.7 LAB L100.2300 0-10 % Normal MONO% 8.9 LAB L100.2400 0-5 % Normal EO% 1.6 LAB L100.2500 0-1 % Normal BASO% 0.5 LAB L100.2550 0.0-0.9 % Normal IM GRAN % 0.600 Result Comment: IG% - Immature Granulocytes (promyelocytes, myelocytes and metamyelocytes) > 1% indicates that a LEFT SHIFT is Present. LAB L100.2620 2.0-7.7 X10 3/uL Normal Absolute Neut 5.0 LAB L100.2720 0.83-4.51 X10 3/ul Low Absolute Lymph 0.69 Performed By: #### L300.3900, L300.4310, L100.0100, L500.2500 #### [facility] [address] [place], [address] BASIC METABOLIC Collected: 11/17/2017 Status: F Source: [facility] PROFILE (BMP) 11:19 AM [facility] REPOSITORY TYPE CODE TESTS RESULT OUT OF RANGE REFERENCE UNITS LAB L501.0100 74-106 mg/dL High GLU 238 Result Comment: Glucose result greater than or equal to 200 mg/dL suggests DIABETES MELLITUS per A.D.A. criteria. Please note revised GLUCOSE reference range effective 2017. LAB L501.1000 7-18 mg/dL High BUN 32 LAB L501.1100 0.70-1.30 mg/dL High CREAT,SERUM 2.24 Result Comment: The validity of the calculated GFR AND GFRAA in patients over 70 years has not been determined. Clinical correlation is essential. LAB L501.1110 >60 mL/min Low EST GFR 30 Result Comment: Non- GFR Calc LAB L501.1115 >60 mL/min Low EST GFR - AA 36 Result Comment: GFR Calc LAB L501.1300 10-20 RATIO Normal BUN/CRE 14.3 LAB L501.2200 8.5-10.1 mg/dL CA Normal 9.8 LAB L501.5300 136-145 mmol/L NA Normal 139 LAB L501.5600 3.5-5.1 mmol/L K Normal 4.6 LAB L501.5900 98-107 mmol/L CL Normal 104 LAB L501.6100 21.0-32.0 mmol/L Normal CO2 28.0 LAB L501.6200 5-15 Normal GAP 7 Performed By: #### L300.3900, L300.4310, L100.0100, L500.2500 #### [facility] [address] [facility] [place], [address] BNP,B-TYPE NATRIURETIC Collected: 11/17/2017 Status: F Source: [facility] PEPTIDE 11:19 AM [facility] REPOSITORY TYPE CODE TESTS RESULT OUT OF RANGE REFERENCE UNITS LAB L503.6620 0-100 pg/mL High B-TYPE 588.5 ISABEL PEP Performed By: #### L503.6620 #### [facility] [address] [place], [address] 12 LEAD EKG PERFORMED Observed: 11/17/2017 Status: F Source: [facility] BY [facility] 10:21 AM [facility] REPOSITORY [facility] [address] [place] [address] 12 Lead EKG performed by [facility] 11/17/17 1021 MR#: [id number] Acct: [id number] Name: HEATH OTTO Rep #: [id number] : 1935 82 From: Clari SORIANO Attending Dr: Clari Jameson Status: DEP AMB Ordering Dr: Clari Jameson Date: 11/17/17 Location: [facility] [place] Sex: M C Admitted: BMS/12 Lead EKG performed by [facility] ECG Report Interpretation Sinus Rhythm -Poor R-wave progression -nonspecific -consider old anterior infarct. - Diffuse nonspecific T-abnormality. ABNORMAL Electronically signed on 02/10/2018 at 16:31 by David Fagan Software Version [id number] 02/10/18 1636 Date Clari SORIANO CC: Salima Tuttle MD Date Dictated: 11/17/17 1021 Date Transcribed: 11/17/17 1021 Field Observer: MMM Signed CHEST PA AND LATERAL Observed: 11/02/2017 Status: F Source: [facility] 12:23 PM [facility] REPOSITORY [facility] Imaging Services [address] [place] [address] Chest PA and Lateral MR#: [id number] Acct: [id number] Name: HEATH OTTO Rep #: [id number] : 1935 M 82 From: Horace Otoole DO PCP: Salima Tuttle MD Status: REG CLI Study: Chest PA and Lateral Date of Exam: 11/02/17 Exam# [id number] Ordering Dr: Salima Tuttle MD STUDY: X-RAY CHEST REASON FOR EXAM: Male, 82 years old. Bronchitis. Dizziness. Shortness cough. TECHNIQUE: PA and lateral views of the chest. COMPARISON: August 06, 2017. FINDINGS: The lungs are well expanded. There is chronic scarring in the lingula. No new mass or infiltrate is noted. There is no demonstrated pleural abnormality. Sternal cerclage wires are present from a prior sternotomy. There are multiple fractures of the lower sternal wires. The heart is normal in size. Stable cardiac pacemaker. Normal mediastinum and jose antonio. Normal visualized pulmonary arteries. There is atherosclerotic calcification of the aortic arch with tortuosity. There are diffuse degenerative changes of the visualized thoracic spine. Normal visualized ribs, clavicles, and shoulders. There is no demonstrated abnormality of the visualized soft tissue structures of the upper abdomen. RAD/Chest PA and Lateral IMPRESSION: 1. No acute cardiopulmonary disease or interval change. Electronically Signed: Horace Otoole DO at 17:04 EDT Tel [phone], Service support , CC: Salima Tuttle MD Field Observer: Signed XR FLUORO GUIDANCE FOR Observed: 10/15/2017 Status: F Source: Mlog THERAPY INJECTION 9:09 AM [facility] REPOSITORY ORIGINAL Images acquired, not reported on this accession number. SPINE LUMBAR WITHOUT Observed: 10/03/2017 Status: F Source: [facility] CONTRAST 8:37 AM [facility] REPOSITORY [facility] Imaging Services [address] [place] [address] Spine Lumbar without Contrast MR#: [id number] Acct: [id number] Name: HEATH OTTO Rep #: [id number] : 1935 M 82 From: Anil Quiroga MD PCP: Salima Tuttle MD Status: REG CLI Study: Spine Lumbar without Contrast Date of Exam: 10/03/17 Exam# [id number] Ordering Dr: SILVANA ARAMBULA STUDY: CT LUMBAR SPINE WITHOUT CONTRAST REASON FOR EXAM: Male, 82 years old. Low back pain radiating down right lower extremity RADIATION DOSAGE (If Supplied By Facility): CTDIvol = ( 17.75 ) mGy, DLP = ( 466.73 ) mGycm TECHNIQUE: The patient was scanned in a multi detector CT scanner. High resolution transaxial imaging was performed. Images were obtained from to . Sagittal and coronal images were reconstructed. Individualized dose optimization techniques were used for this CT. COMPARISON: None FINDINGS: Normal lumbar lordosis. There is moderate levo scoliosis. Normal vertebrae of the lumbar spine. L1-2: Mild endplate spurring.. Narrowed disc height and normal morphology. Normal bilateral facet joints. Normal central canal and bilateral lateral recesses. Normal bilateral intervertebral neural foramina. L2-3: Mild endplate spurring. Mild bulging disc osteophyte complex. Mild facet arthropathy. Normal central canal. Moderate bilateral recess and neuroforaminal stenosis secondary to bony hypertrophy L3-4: Endplate spurring narrowed disc space and endplate spurring. Minor bulging disc osteophyte complex. Mild facet arthropathy. Mild to moderate narrowing of the central canal. Severe bilateral recess and neuroforaminal stenosis exaggerated by shortened pedicles. L4-5: Mild endplate spurring. Normal disc height with vacuum disc degeneration. Mild bulging disc osteophyte complex. Bilateral facet arthropathy and thickening of ligamenta flava moderate to severe central canal stenosis. Severe bilateral recess and neuroforaminal stenosis exaggerated by shortened pedicles. L5-S1: Mild endplate spurring. Vacuum disc degeneration. Minor bulging disc osteophyte complex. Bilateral facet arthropathy. Normal central canal. Severe bilateral recess and neural foraminal stenosis exaggerated by shortened pedicles. Normal visualized paraspinous soft tissue structures. CT/Spine Lumbar without Contrast IMPRESSION: No evidence for acute fracture or subluxation. Scoliosis and degenerative changes. Multilevel spinal stenosis secondary to disc disease and bony hypertrophy exaggerated by shortened pedicles. Electronically Signed: Anil Quiroga MD at 23:52 EDT , Service support , CC: SILVANA ARAMBULA; Salima Tuttle MD Field Observer: Signed XR FLUORO GUIDANCE FOR Observed: 09/24/2017 Status: F Source: [facility] INJECTION 8:04 AM [facility] REPOSITORY ORIGINAL Images acquired, not reported on this accession number. DOWNTIME REPORT Observed: 08/27/2017 Status: F Source: [place] 1:12 PM [facility] REPOSITORY [facility] Medical Records Department [address] [place] [address] Downtime Report MR#: [id number] Acct: [id number] Name: HEATH OTTO Rep #: [id number] : 1935 82 From: Timoteo Barnard PCP: Salima Tuttle MD Status: REG CLI This patient was seen during an EMR downtime August 10, 2017 - August 17, 2017. This patient may have a combination of paper and electronic documentation or all paper documentation. All documentation is viewable within the e-chart portion of [employer] for each patient visit. DOWNTIME REPORT Observed: 08/26/2017 Status: F Source: TALIB 1:18 PM [facility] REPOSITORY [facility] Medical Records Department [address] [place] [address] Downtime Report MR#: [id number] Acct: [id number] Name: HEATH OTTO Rep #: [id number] : 1935 82 From: Timoteo Barnard MD PCP: Salima Tuttle MD Status: DEP ER This patient was seen during an EMR downtime August 10, 2017 - August 17, 2017. This patient may have a combination of paper and electronic documentation or all paper documentation. All documentation is viewable within the e-chart portion of [employer] for each patient visit. PACEMAKER CHECK Observed: 08/19/2017 Status: F Source: TALIB 8:22 AM [facility] [address] [place] [address] Pacemaker Check Date of Service: 07/21/17 0855 MR#: [id number] Acct: [id number] Name: HEATH OTTO Rep #: [id number] : 1935 From: Annette Rivera Age/Sex: 82/M Location: [facility] [place] Status: Signed Comments Summary Comments: Dual Chamber Pacemaker Evaluation: Interrogation shows no MS episodes and no VHR episodes since 01/20/17. Left pectoral pocket/incision w/o s/s of infection or erosion. Pt offers no cardiac complaints at present. Presenting rhythm shows AAI pacing @ 70 ppm. LUBRICATING ENGINEER=<1%. Estimated battery life 8.4 to 9.7 yrs. Lead impedances, sensing and pace/sense thresholds remain stable. No parameter changes made. Counters cleared. Next f/u appt. scheduled for in 6 mos. 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 [place] Name: Jennifer SALDIVAR Model: 2240 Serial #: [id number] Implant Date: 05/11/14 Year(s): 3 Implant Physician: Dr. Андрей Cox/ Damon Patient Characteristics AV/Node Indication: Complete heart block Patient Substrate: Syncope Ejection fraction %: 25 to 29 (11/28/2016) By: Echo Underlying rhythm: Sinus bradycardia Pacemaker Dependent: No Device Characteristics Device: Dual Chamber Type: Pacemaker Remote Follow-Up: No Device Physical Exam Yes Incision well healed Leads Lead #1 Freight Rate Analyst Lead 1: [employer] [place] Model Lead 1: 2088TC Serial# Lead 1: [id number] Date Implanted Lead 1: 05/11/14 Position Lead 1: RA Lead #2 Freight Rate Analyst Lead 2: [employer] [place] Model Lead 2: 2088TC Serial# Lead 2: [id number] Date Implanted Lead 2: 05/11/14 Position Lead 2: RV Diagnostics Pacing % RA Pacin % RV Pacin Mode Switching Total # Episodes: 0 % Mode switched: 0 Arrhythmias Non-Sust Episodes: 0 Measurements Battery Voltage (V): 2.99 Magnet Rate (bmp): 100 Battery %: 95 Predicted Remaining Longevity (months or years): 8.4 to 9.7 years RA Measurements Signal Amplitude (mV): 2.6 Impedance (Ohms): 440 RV Measurements Signal Amplitude (mV): 12 Impedance (Ohms): 490 Andrea Settings Bradycardia Mode and Timing Settings Pacemaker Mode: DDDR Base Rate: 70 bpm Max Track Rate: 120 bpm Max Sensor Rate: 120 bpm Maximum AV Delay: 300 msec Bradycardia Output and Sensitivity Settings Right Atrium: 0.5 msec, 2.0 volts, 0.5 mV sensitivity. Right Ventricle: 0.5 msec, 2.0 volts, 20 mV sensitivity Billing Codes PM Device Codes: PM Dev Prog Eval, Dual Assessment AND Plan Problems 1. Ventricular tachycardia I47.2 2. Complete AV block, acquired I44.2 3. 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 Cotto; 06/25/05, Sternal Dehiscence strnal rewiring AND debridement 08/08/17 1156 <Electronically signed by Annette Rivera > Date Annette Rivera 08/19/17 0822<Electronically signed by David Fagan MD> Rachealign Signature: Date (if applicable) David Fagan MD CC: L/S SPINE MIN 4 Observed: 08/17/2017 Status: F Source: [place] VIEWS 10:54 AM [facility] REPOSITORY [facility] Imaging Services [address] [place] [address] L/S Spine Min 4 Views MR#: [id number] Acct: [id number] Name: HEATH OTTO Rep #: [id number] : 1935 M 82 From: Mariusz Melgoza MD PCP: Salima Tuttle MD Status: REG CLI Study: L/S Spine Min 4 Views Date of Exam: 08/10/17 Exam# [id number] Ordering Dr: Salima Tuttle MD STUDY: X-RAY - LUMBAR SPINE REASON FOR EXAM: Male, 82 years old. Low back and right hip pain. TECHNIQUE: 5 view(s) of the lumbar spine were obtained. COMPARISON: None FINDINGS: There is generalized osteopenia. Normal lumbar lordosis. There is no substantial scoliosis. There is a normal alignment of the vertebrae. Normal vertebral bodies and endplates. There is multilevel intervertebral disc space narrowing with substantial osteophyte formation most marked at L2-3 and L3-4. There is diffuse facet sclerosis. There is marked vascular calcification. RAD/L/S Spine Min 4 Views IMPRESSION: Osteopenia with diffuse lumbar spondylosis as described. Electronically Signed: Mariusz Melgoza MD at 17:26 EDT , Service support , CC: Salima Tuttle MD Field Observer: Signed CBC W/DIFF, AUTOMATED Collected: 08/14/2017 Status: F Source: TALIB 12:00 AM [facility] REPOSITORY Order Comment: ORDERED FROM DT REQS TYPE CODE TESTS RESULT OUT OF RANGE REFERENCE UNITS LAB L100.1000 4.4-11.0 K/mm3 Normal WBC 7.0 LAB L100.1200 4.6-6.2 M/mm3 Low RBC 4.30 LAB L100.1300 13.0-16.5 g/dl Low HGB 12.9 LAB L100.1400 40-54 % Low HCT 39.4 LAB L100.1500 80-94 fL Normal MCV 91.6 LAB L100.1600 27.0-32.0 pg Normal MCH 30.0 LAB L100.1700 32-36 g/gl Normal MCHC 32.7 LAB L100.1810 11.6-14.6 % High RDW CV 16.0 LAB L100.1820 35.1-43.9 fl High RDW SD 53.0 LAB L100.1900 150-450 K/mm3 Normal PLT 342 LAB L100.2000 6.2-12.0 fl Normal MPV 11.0 LAB L100.2100 47-70 % High NEUT% 88.8 LAB L100.2200 19-41 % Low LY% 6.1 LAB L100.2300 0-10 % Normal MONO% 3.3 LAB L100.2400 0-5 % Normal EO% 0.1 LAB L100.2500 0-1 % Normal BASO% 0.4 LAB L100.2550 0.0-0.9 % High IM GRAN % 1.300 Result Comment: IG% - Immature Granulocytes (promyelocytes, myelocytes and metamyelocytes) > 1% indicates that a LEFT SHIFT is Present. LAB L100.2620 2.0-7.7 X10 3/uL Normal Absolute Neut 6.2 LAB L100.2720 0.83-4.51 X10 3/ul Low Absolute Lymph 0.43 LAB L100.4500 SMEAR Normal COMMENT SCAN LAB L100.5500 ADEQ PLT Normal EST ADEQUATE LAB L100.5650 PLT Normal MORPH LARGE LAB L100.7300 ANISO Normal RARE LAB L100.7800 Normal MACROCYTE RARE Performed By: #### L100.0100 #### [facility] [address] [place], [place], [address] BASIC METABOLIC Collected: 08/10/2017 Status: F Source: [place] PROFILE (BMP) 12:00 AM [facility] REPOSITORY Order Comment: ORDERED FROM DT REQS RESULT(S) PREVIOUSLY REPORTED ON MANUAL REQUISITION DURING DOWNTIME. TYPE CODE TESTS RESULT OUT OF RANGE REFERENCE UNITS LAB L501.0100 74-106 mg/dL High GLU 261 Result Comment: Glucose result greater than or equal to 200 mg/dL suggests DIABETES MELLITUS per A.D.A. criteria. Please note revised GLUCOSE reference range effective 2017. LAB L501.1000 7-18 mg/dL High BUN 58 LAB L501.1100 0.70-1.30 mg/dL High CREAT,SERUM 2.21 Result Comment: The validity of the calculated GFR AND GFRAA in patients over 70 years has not been determined. Clinical correlation is essential. LAB L501.1110 >60 mL/min Low EST GFR 31 LAB L501.1115 >60 mL/min Low EST GFR - AA 38 LAB L501.1300 10-20 RATIO High BUN/CRE 26.2 LAB L501.2200 8.5-10.1 mg/dL High CA 10.2 LAB L501.5300 136-145 mmol/L Normal NA 138 LAB L501.5600 3.5-5.1 mmol/L Normal K 4.5 LAB L501.5900 98-107 mmol/L Normal CL 103 LAB L501.6100 21.0-32.0 mmol/L Normal CO2 28.0 LAB L501.6200 5-15 Normal GAP 7 Performed By: #### L500.2500 #### [facility] [address] [place], [address] DISCHARGE SUMMARY Observed: 08/07/2017 Status: F Source: [place] 9:16 PM [facility] REPOSITORY [facility] Medical Records Department [address] [place] [address] Discharge Summary 08/06/17 1833 MR#: [id number] Acct: [id number] Name: HEATH OTTO Rep #: [id number] : 1935 82 From: Kate Martins DO PCP: Salima Tuttle MD Status: DIS NATALEE Y [place] [facility] [place] [facility] [place] Discharge Date and Diagnosis Date of Admission: 08/04/17 Date of Discharge: 08/06/17 - Primary Discharge Diagnosis Active and Suspected Problems (Last Updated 06/04/17 @ 09:46 by Abby Suero) Radiculitis of the right leg (Acute) - Secondary Discharge Diagnosis Chronic Problems (Last Updated 06/04/17 @ 09:46 by Abby Suero) History of ventricular tachycardia (Chronic) Type 2 diabetes mellitus (Chronic) Prostatic enlargement (Chronic) with a normal PSA Chronic renal failure, stage 4 (severe) (Chronic) Chronic combined systolic and diastolic CHF (congestive heart failure) (Chronic) History of nephrolithiasis (Chronic) Ischemic cardiomyopathy (Chronic) - EF is 30% 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 Cotto; 06/25/05, Sternal Dehiscence strnal rewiring AND debridement Hospital Course and Treatment Imaging Results: Clinical Impression(s) from Imaging Studies Abdomen/Pelvis CT 08/04/17 18:53 IMPRESSION: No acute abnormality identified in the abdomen or pelvis. Stable rounded atelectasis at the left lung base. Stable splenomegaly. Stable bilateral cortical renal cysts. Stable prostatomegaly with heterogeneity. Correlation with PSA is recommended. at 1949 Reported and signed by: Mariia Orlando MD Electronically Signed: Mariia Orlando MD at 19:47 EDT Tel , Service support , Hip/Pelvis X-Ray 08/05/17 07:13 IMPRESSION: Mild degree of both degenerative changes of the hip joints bilaterally. Electronically Signed: Octavio Kurtz MD at 12:59 EDT Tel [phone], Service support , Chest X-Ray 08/06/17 05:55 IMPRESSION: Stable pleural parenchymal changes at the left lung base. No other abnormality is seen. Electronically Signed: Octavio Kurtz MD at 8:47 EDT Tel [phone], Service support , Dr. Castellanos -general surgery Dr. Sundar Steiner-neurology Operations: None Procedures: None Summary of Care Provided: Mr. Otto is an 82-year-old male with an extensive past medical history that includes ischemic cardiomyopathy, coronary artery disease with stents, right bundle branch block, complete heart block, combined systolic and diastolic congestive heart failure, hypertension, hyperlipidemia, GERD, diaphragmatic hernia, diabetes mellitus type 2, chronic renal failure stage III, cardiac pacemaker, ventricular tachycardia, and history of CABG 2 vessels in 2005 who presented to the ED at [facility] on 08/04/2017 complaining of right lower quadrant abdominal pain. Vital signs at presentation to the emergency room were temperature 97.8, pulse rate 76, blood pressure 116/66, respiratory rate 16 and he was 99% saturated on room air. White blood cell count was normal at 6.1 with an unremarkable differential. Hemoglobin and platelets were within normal limits. BMP was remarkable for a potassium of 5.0, BUN of 29 and a creatinine of 2.45. 2.45 is within his baseline over the past 5 months. UA showed 0-5 WBCs, 0 RBCs, negative nitrite and there were 10-[address] scan of the abdomen and pelvis showed no acute abnormality. He was admitted to the hospital for observation and Dr. Castellanos was consulted for surgical opinion and found nothing surgical that would cause his symptoms. He was also seen by Dr. Steiner who ruled out kidney stones and thought the pain may be musculoskeletal. On PE the pain was severe and he looked very uncomfortable. The pain radiated from the R buttock/iliac crest laterally around the hip and into the R groin. He had pain in the upper right thigh. the pain increased with bending and twisting. He had a very difficult time sitting up in bed. His gait was antalgic. He was given 60 mg of Predisone and Gabapentin 200 mg and was re-examined in 4 hours and the pain was much better. He was able to get dressed and ambulate with much less discomfort. I feel that the pain is due to nerve compression. He then related to me that he had been riding in the back seat of a car to a and it was very uncomfortable and a bumpy trip. the pain he had at admission increased when riding in the car. He was given a RX for Gabapentin and a tapering course of prednisone over the next 10 days. If the pain does not resolve completely or if it resolves and then comes back after the steroids are discontinued would image the Lumbar spine and possibly refer to pain management for an epidural. He was instructed to monitor his weight daily while on prednisone and if it starts increasing by 1-2 pounds daily to take an extra dose of Lasix in the afternoon until his weight returns to baseline. He will follow-up with Dr. Palumbo in 7-10 days. This note was generated with [employer]ey[employer] software. It may contain incorrect words, spelling, and punctuation that were not noted in checking the note before signing. Discharge Activity: - - no bending or twisting. No lifting more than 5 lbs. Limit riding in the car to short distances for the next 10-14 days. Call your doctor if you observe: Fever of 101 or Higher, Inability to urinate, Inability to have a bowel movement, Shortness of breath, Dizziness, Fainting spells, Swelling in the ankles, Chest pain, Uncontrolled pain, - - fecal or urinary incontinence, weakness in your legs, falls Home Medications: Medications to take at Discharge Clopidogrel Bisulfate [Plavix] 75 mg PO QHS 03/12/14 Folic Acid 5 mg PO QHS 03/12/14 Aspirin [Aspirin, Baby] 81 mg PO QHS 04/14/14 Multivitamins,Therapeutic [Multivitamin] 1 tab PO QHS 04/14/14 Ubidecarenone [Q-Sorb Co Q-10] 100 mg PO QHS 02/25/16 Carvedilol [Coreg (Beta David)] 3.125 mg PO BID #60 tab 02/27/16 Isosorbide Mononitrate [Monoket] 20 mg PO BID@0800,1500 #60 tab 03/07/16 amlodipine 5 mg tablet 5 mg PO QDAY tab 06/04/17 metformin ER 500 mg tablet,extended release 24 hr 500 mg PO DAILY 90 Days #90 06/04/17 nitroglycerin 0.4 mg sublingual tablet 0.4 mg SUBLINGUAL Q5M PRN #25 tab 06/05/17 furosemide 20 mg tablet 20 mg PO QDAY #30 tab 07/17/17 Gabapentin [Neurontin] 100 mg PO TID #100 cap 08/06/17 Oxycodone [Oxyir] 5 - 10 mg PO Q4H PRN PRN 7 Days #30 tab 08/06/17 Prednisone 20 mg PO DAILY #16 tab 08/06/17 Following Prescrptions Were Given to Patient: Oxycodone [Oxyir] 5 - 10 mg PO Q4H PRN PRN 7 Days #30 tab PRN Reason: Severe Pain (-12/16) Prednisone 20 mg PO DAILY #16 tab Gabapentin [Neurontin] 100 mg PO TID #100 cap Primary Care Physician: Salima Tuttle MD [Primary Care Provider] - Please follow up with your Primary Care Physician in: 7-10 days Disposition: Home Minutes spent on discharge:: 35 Patient Condition:: Good Medical Necessity - Tobacco Use Smoking Status: Former smoker Tobacco Use: Non-smoker Meaningful Use Info Meaningful Use Diagnoses (Choose all that apply): None applicable Code Visit Inpatient E AND M: 66941 Disch Hosp 08/07/172115 <Electronically signed by Kate Martins DO> Date Kate Martins DO Cosigner Signature (if applicable): Date CC: Salima Tuttle MD; Rocio Martins Signed DISCHARGE INSTRUCTION Observed: 08/06/2017 Status: F Source: [place] 6:32 PM [facility] REPOSITORY [facility] Medical Records Department [address] [place] [address] Instructions for Home/Discharge Instructions 08/06/17 1812 MR#: [id number] Acct: [id number] Name: HEATH OTTO Rep #: [id number] : 1935 82 From: Kate Martins DO PCP: Salima Tuttle MD Status: ADM NATALEE - Discharge Diagnoses Current Active Problems: Current Active and Chronic Problems (Last Updated 06/04/17 @ 09:46 by Abby Sueor) Abdominal pain (Acute) You will use the following diet at home:: Other - Resume previous diet Your food should be the consistency of: Regular Your liquids should be the consistency of: Regular/Thin Discharge Activity: - - no bending or twisting. No lifting more than 5 lbs. Limit riding in the car to short distances for the next 10-14 days. Lifting Restrictions: no more than 5 lbs Call your doctor if you observe: Fever of 101 or Higher, Inability to urinate, Inability to have a bowel movement, Shortness of breath, Dizziness, Fainting spells, Swelling in the ankles, Chest pain, Uncontrolled pain, - - fecal or urinary incontinence, weakness in your legs, falls Additional Instructions: It is possible that you just irriated your back by riding in the back seat of a car and going over bumps. Most everyone your age has some arthritis in theior back. I think the pain is coming from compression of the nerves into the right leg that come from the back. It got better with Gabapentin and this only really treats nerve pain. I am giving you a prescription for Gabapentin and also Prednisone. The prednisone is a steroid and they are powerful anti-inflammatories....they will decrease the swelling around the nerve root. The steroids will be tapered over the next 10 days. If the pain comes back after the steroids are finished you will likely need an MRI of your. Lumbar spine and a referral to a pain management doc for a possible epidural injection. I will send a copy of the discharge instruction and the discharge summary to Dr. Tuttle. The PSA was normal. Pending Tests on Discharge: none Allergies/Adverse Reactions: Allergies Penicillins Allergy (Verified 08/04/17 18:34) Anaphylaxis rosuvastatin calcium [From Crestor] Allergy (Verified 08/05/17 00:18) legs hurt Eomcgsn-Ess-Dop Reductase Inhibitor Allergy (Verified 08/05/17 00:18) body aches amlodipine [From Norvasc] Adverse Reaction (Intermediate, Verified 08/05/17 00:18) dizzy Medications to take at Discharge Clopidogrel Bisulfate [Plavix] 75 mg PO QHS 03/12/14 Folic Acid 5 mg PO QHS 03/12/14 Aspirin [Aspirin, Baby] 81 mg PO QHS 04/14/14 Multivitamins,Therapeutic [Multivitamin] 1 tab PO QHS 04/14/14 Ubidecarenone [Q-Sorb Co Q-10] 100 mg PO QHS 02/25/16 Carvedilol [Coreg (Beta David)] 3.125 mg PO BID #60 tab 02/27/16 Isosorbide Mononitrate [Monoket] 20 mg PO BID@0800,1500 #60 tab 03/07/16 amlodipine 5 mg tablet 5 mg PO QDAY tab 06/04/17 metformin ER 500 mg tablet,extended release 24 hr 500 mg PO DAILY 90 Days #90 06/04/17 nitroglycerin 0.4 mg sublingual tablet 0.4 mg SUBLINGUAL Q5M PRN #25 tab 06/05/17 furosemide 20 mg tablet 20 mg PO QDAY #30 tab 07/17/17 Gabapentin [Neurontin] 100 mg PO TID #100 cap 08/06/17 Oxycodone [Oxyir] 5 - 10 mg PO Q4H PRN PRN 7 Days #30 tab 08/06/17 Prednisone 20 mg PO DAILY #16 tab 08/06/17 The following prescriptions were given: Oxycodone [Oxyir] 5 - 10 mg PO Q4H PRN PRN 7 Days #30 tab PRN Reason: Severe Pain (6-12/16) Prednisone 20 mg PO DAILY #16 tab Gabapentin [Neurontin] 100 mg PO TID #100 cap Primary Care Physician: Salima Tuttle MD [Primary Care Provider] - Please follow up with your Primary Care Physician in: 7-10 days Proposed Discharge Date: 08/06/17 08/06/171831 <Electronically signed by Kate Martins DO> Date Kate Martins DO CC: Salima Tuttle MD; Stas Steiner MD; Jannet Castellanos MD BEDSIDE GLUCOSE Collected: 08/06/2017 Status: F Source: [place] 4:45 PM [facility] REPOSITORY TYPE CODE TESTS RESULT OUT OF REFERENCE UNITS RANGE LAB L501.080 70-110 mg/dL High BEDSIDE GLU 193 Result Comment: MANAGEMENT OF PATIENT CARE PER NURSING PROTOCOL Performed By: #### L501.080 #### [facility] Point of Care [address] [place] [address] CONSULTATION Observed: 08/06/2017 Status: F Source: [place] 2:01 PM [facility] REPOSITORY [facility] Medical Records Department [address] [place] [address] Consultation 08/05/17 0741 MR#: [id number] Acct: [id number] Name: HEATH OTTO Rep #: [id number] : 1935 82 From: Jannet Castellanos MD PCP: Salima Tuttle MD Status: ADM NATALEE Y Location: [address] Reason for Consult Date of Consultation: 08/05/17 History of Present Illness: The patient is a 82 year old M admitted for right lower abdomen/groin pain patient stated it started a week ago Thursday she he did see his PCP on Thursday. Patient states he has gotten worse and the pain a 10/10 at its better with rest currently states it is a 4/10 but is worse with movement. He denies noticing any bulge in that area. Patient denies any event that happened right before he noticed the pain. Denies any nausea or vomiting fevers or chills or dysuria. Past Medical History Past Medical History (Chronic Problems): Chronic Problems (Last Updated 06/04/17 @ 09:46 by Abby Suero) Ischemic cardiomyopathy (Chronic) Presence of coronary angioplasty implant and graft (Chronic) Cardiac cath left, 2005 with TAXUS MARIUM of left main stem AND proximal OM1; Cardiac ath @ [facility] then PCI @ 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) Right bundle branch block (Chronic) Complete AV block, 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) Pneumonia (Chronic) Hypertensive heart disease without heart failure (Chronic) HTN (hypertension) (Chronic) HLD (hyperlipidemia) (Chronic) Esophageal reflux (Chronic) Diaphragmatic hernia (Chronic) Type II diabetes mellitus, uncontrolled (Chronic) 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) Unstable angina (Chronic) Renal insufficiency (Chronic) Cardiac pacemaker (Chronic) 12/14 Implantable Loop Recorder; 02/12/09 Removal of Loop Recorder; PPM Implant 05/2014 Ventricular tachycardia (Chronic) S/P PTCA (percutaneous transluminal coronary angioplasty) (Chronic) S/P CABG x 2 (Chronic) CABG with RUSH to LAD, SVG to Cx 06/17/05 Dr. 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) I50.43 HTN (hypertension) (Chronic) I10 HLD (hyperlipidemia) (Chronic) E78.5 Type II diabetes mellitus, uncontrolled (Chronic) E11.65 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) I25.10 Renal insufficiency (Chronic) N28.9 Cardiac pacemaker (Chronic) Z95.0 12/14 Implantable Loop Recorder; 02/12/09 Removal of Loop Recorder; PPM Implant 05/2014 NSTEMI (non-ST elevated myocardial infarction) (Chronic) I21.4 Allergies Penicillins Allergy (Verified 08/04/17 18:34) Anaphylaxis rosuvastatin calcium [From Crestor] Allergy (Verified 08/05/17 00:18) legs hurt Tgelmqj-Wip-Wcp Reductase Inhibitor Allergy (Verified 08/05/17 00:18) body aches amlodipine [From Norvasc] Adverse Reaction (Intermediate, Verified 08/05/17 00:18) dizzy Home Medications: Ambulatory Orders Medication Instructions Recorded Clopidogrel Bisulfate [Plavix] 75 mg PO QHS 03/12/14 Folic Acid 5 mg PO QHS 03/12/14 Aspirin [Aspirin, Baby] 81 mg PO QHS 04/14/14 Surgical History: Surgical History (Last Updated 06/04/17 @ 09:46 by Abby Suero) Presence of coronary angioplasty implant and graft (Chronic) Z95.5 Cardiac cath left, 2005 with TAXUS MARIUM of left main stem AND proximal OM1; Cardiac ath @ [facility] then PCI @ [facility] 08/11/13 MARIUM prox CX AND MARIUM prox LAD S/P PTCA (percutaneous transluminal coronary angioplasty) (Chronic) Z98.61 S/P CABG x 2 (Chronic) Z95.1 CABG with [place]USH to LAD, SVG to Cx 06/17/05 Dr. Cotto; 06/25/05, Sternal Dehiscence strnal rewiring AND debridement Surgical History: cholecystectomy, and PCI to LMA graft Psychiatric History: No pertinent psych hx Lives: Spouse/ Significant Other Smoking Status: Former smoker Tobacco Use: Non-smoker Alcohol: Rare Drugs: None - *Family History Paternal Family History: Family History (Last Updated 06/04/17 @ 09:48 by Abby Suero) Father Myocardial infarction Hypertension Heart disease Mother Hypertension Emphysema of lung FH: brain aneurysm Daughter Afib History Items: Heart Disease Maternal Family History: Family History (Last Updated 06/04/17 @ 09:48 by Abby Suero) Father Myocardial infarction Hypertension Heart disease Mother Hypertension Emphysema of lung FH: brain aneurysm Daughter Afib History Items: No pertinent history Review of Systems Constitutional: Denies: Chills, Fever Eyes: Reports: Blurred vision HEENT: Denies: Difficulty Swallowing Cardiovascular: Denies: Chest Pressure Respiratory: Denies: Shortness of breath at rest Gastrointestinal: Denies: Nausea, Vomiting Genitourinary: Denies: Dysuria Musculoskeletal: Denies: Joint Pain Neurological: Denies: Confusion Psychiatric: Denies: Anxiety Hematologic/ Lymphatic: Denies: Easy Bruising Patient Problems: Active and Suspected Problems (Last Updated 06/04/17 @ 09:46 by Abby Suero) Abdominal pain (Acute) - Physical Exam General: Alert, Oriented x3, Cooperative Lungs: Normal air movement Cardiovascular: Regular rate Abdomen: Soft, Non-Distended, Tender - In the right inguinal region, no guarding or rebound, - - Positive tenderness palpation of the right testicle, no obvious hernia on exam Extremities: No clubbing, No cyanosis, No edema Neurological: Cranial nerves II-XII grossly intact Psych/Mental Status: Normal Affect Vital Signs Temp Pulse Resp BP Pulse Ox 97.2 F L 70 18 154/74 H 95 08/05/17 03:41 08/05/17 03:41 08/05/17 03:41 08/05/17 03:41 08/05/17 03:41 Oxygen Delivery Method Room Air Weight: 182 lb 8.684 oz Body Mass Index (BMI) 28.5 Intake and Output for Last 24 Hours Intake Total 827 / 827 Balance 827 / 827 Laboratory Tests Past 24 Hrs WBC 4.2 L RBC 3.92 L Hgb 11.6 L Hct 35.8 L MCV 91.3 MCH 29.6 MCHC 32.4 RDW 16.4 H RDW Differential 54.9 H WBC RBC Hgb Hct MCV MCH MCHC RDW RDW Differential Plt Count MPV Immature Gran % (Auto) POC Glucose POC Glucose 149 H Assessment/Plan All Active Problems (Last Updated 06/04/17 @ 09:46 by Abby Suero) Abdominal pain (Acute) 82-year-old male with right lower abdomen/groin pain [address] abdomen pelvis done in the ER which did not show any acute findings. On exam no obvious right inguinal hernia, on my exam he did have tenderness in his right testicle however the UA was negative. Unknown etiology of his right abdominal/groin pain. No plans for any surgical intervention currently. Jannet Castellanos M.D. Pager: [phone] [facility] [address] [place] [address], [facility], [address] [place] [address] Office: [phone] Code Visit Inpatient Peña AND M: [id number] Init Hosp L1 08/06/17 1401 <Electronically signed by Jannet Castellanos MD> Date Jannet Castellanos MD Cosigner Signature (if applicable): Date CC: Salima Tuttle MD; Stas Steiner MD; Jannet Castellanos MD Signed BEDSIDE GLUCOSE Collected: 08/06/2017 Status: F Source: [place] 12:08 PM [facility] REPOSITORY TYPE CODE TESTS RESULT OUT OF REFERENCE UNITS RANGE LAB L501.080 70-110 mg/dL High BEDSIDE GLU 155 Result Comment: MANAGEMENT OF PATIENT CARE PER NURSING PROTOCOL Performed By: #### L501.080 #### [facility] Laboratory Point of Care [address] [facility] [place] [address] CONSULTATION Observed: 08/06/2017 Status: F Source: [place] 8:11 AM [facility] REPOSITORY [facility] Medical Records Department [address] [place] [address] Consultation 08/06/17 0807 MR#: [id number] Acct: [id number] Name: HEATH OTTO Rep #: [id number] : 1935 82 From: Stas Steiner MD PCP: Salima Tuttle MD Status: ADM NATALEE Y Location: [place] [address] Reason for Consult Date of Consultation: 08/06/17 Reason for Consultation: Abdominal pain and concern for kidney stone History of Present Illness: The patient is a 82 year old Male with a history of right abdominal pain and pain going down his groinhe thinks it feels just exactly like a kidney stone in the past, I looked at his CAT scan there is no hydronephrosis no secondary signs of a kidney stone no swelling no hydroureter no visible stone whatsoever he also has no hematuria. I do not think he has a stone on exam and history appears to have some sort of muscle strain or pulled groin muscle or ligament and the right inguinal canal. States that when he is lying still does not hurt but only hurts when he walks or ambulates or on exam when you push down on the right groin area is very tender. Past Medical History Past Medical History (Chronic Problems): Chronic Problems (Last Updated 06/04/17 @ 09:46 by Abby Suero) Ischemic cardiomyopathy (Chronic) Presence of coronary angioplasty implant and graft (Chronic) Cardiac cath left, 2005 with TAXUS MARIUM of left main stem AND proximal OM1; Cardiac ath @ [facility] then PCI @ 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) Pneumonia (Chronic) Hypertensive heart disease without heart failure (Chronic) HTN (hypertension) (Chronic) HLD (hyperlipidemia) (Chronic) Esophageal reflux (Chronic) Diaphragmatic hernia (Chronic) Type II diabetes mellitus, uncontrolled (Chronic) 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) Unstable angina (Chronic) Renal insufficiency (Chronic) Cardiac pacemaker (Chronic) 12/14 Implantable Loop Recorder; 02/12/09 Removal of Loop Recorder; PPM Implant 05/2014 Ventricular tachycardia (Chronic) S/P PTCA (percutaneous transluminal coronary angioplasty) (Chronic) S/P CABG x 2 (Chronic) CABG with RUSH to LAD, SVG to Cx 06/17/05 Dr. 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) I50.43 HTN (hypertension) (Chronic) I10 HLD (hyperlipidemia) (Chronic) E78.5 Type II diabetes mellitus, uncontrolled (Chronic) E11.65 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) I25.10 Renal insufficiency (Chronic) N28.9 Cardiac pacemaker (Chronic) Z95.0 12/14 Implantable Loop Recorder; 02/12/09 Removal of Loop Recorder; PPM Implant 05/2014 NSTEMI (non-ST elevated myocardial infarction) (Chronic) I21.4 Allergies Penicillins Allergy (Verified 08/04/17 18:34) Anaphylaxis rosuvastatin calcium [From Crestor] Allergy (Verified 08/05/17 00:18) legs hurt Yepyjdw-Vdn-Mpa Reductase Inhibitor Allergy (Verified 08/05/17 00:18) body aches amlodipine [From Norvasc] Adverse Reaction (Intermediate, Verified 08/05/17 00:18) dizzy Home Medications: Ambulatory Orders Medication Instructions Recorded Clopidogrel Bisulfate [Plavix] 75 mg PO QHS 03/12/14 Folic Acid 5 mg PO QHS 03/12/14 Aspirin [Aspirin, Baby] 81 mg PO QHS 04/14/14 Surgical History: Surgical History (Last Updated 06/04/17 @ 09:46 by Abby Suero) Presence of coronary angioplasty implant and graft (Chronic) Z95.5 Cardiac cath left, 2005 with TAXUS MARIUM of left main stem AND proximal OM1; Cardiac ath @ [facility] then PCI @ [facility] 08/11/13 MARIUM prox CX AND MARIUM prox LAD S/P PTCA (percutaneous transluminal coronary angioplasty) (Chronic) Z98.61 S/P CABG x 2 (Chronic) Z95.1 CABG with RUSH to LAD, SVG to Cx 06/17/05 Dr. Cotto; 06/25/05, Sternal Dehiscence strnal rewiring AND debridement Surgical History: cholecystectomy, and PCI to LMA graft Psychiatric History: No pertinent psych hx Lives: Spouse/ Significant Other Smoking Status: Former smoker Tobacco Use: Non-smoker Alcohol: Rare Drugs: None - *Family History Paternal Family History: Family History (Last Updated 06/04/17 @ 09:48 by Abby Suero) Father Myocardial infarction Hypertension Heart disease Mother Hypertension Emphysema of lung FH: brain aneurysm Daughter Afib History Items: Heart Disease Maternal Family History: Family History (Last Updated 06/04/17 @ 09:48 by Abby Suero) Father Myocardial infarction Hypertension Heart disease Mother Hypertension Emphysema of lung FH: brain aneurysm Daughter Afib History Items: No pertinent history Review of Systems Constitutional: Denies: Chills, Fever, Weight Change HEENT: Denies: Head Aches, Sinus Congestion, Sinus Drainage Cardiovascular: Denies: Chest Pain, Palpitations Respiratory: Denies: Cough, Shortness of breath at rest, Sputum production Gastrointestinal: Denies: Abdominal Pain, Nausea, Vomiting Genitourinary: Denies: Dysuria Musculoskeletal: Reports: Joint Pain, Joint Tenderness Skin: Denies: Rash, Wounds Neurological: Denies: Numbness, Tingling, Focal weakness Psychiatric: Denies: Anxiety, Depression, Homicidal Ideations, Suicidal Ideations Hematologic/ Lymphatic: Denies: Easy Bruising, Easy Bleeding Physical Exam - Physical Exam Vital Signs Temp 97.9 F 08/06/17 02:50 Pulse 68 08/06/17 02:50 Resp 20 H 08/06/17 02:50 BP 141/70 H 08/06/17 02:50 Pulse Ox 96 08/06/17 02:50 Intake AND Output Intake Total 2692 / 2692 714 / 714 Output Total 1200 / 1200 425 / 425 Balance 1492 / 1492 289 / 289 General: Alert, Oriented x3 HEENT: Atraumatic Oral: Moist Mucosa Cardiovascular: Regular rate Abdomen: Bowel Sounds Present, Soft, - - Tender and right groin and inguinal area on exam Rectal: Exam deferred Assessment/Plan All Active Problems (Last Updated 06/04/17 @ 09:46 by Abby Suero) Abdominal pain (Acute) 82-year-old male who has I suspect some sort of muscle skeletal pain pulled groin or ligament in the right inguinal area on CAT scan completely clear no sign of a hernia no sign of a kidney stone. Urine test is clear. Call me with questions. 08/06/17 0811 <Electronically signed by Stas Steiner MD> Date Sats Steiner MD Cosigner Signature (if applicable): Date CC: Salima Tuttle MD; Stas Steiner MD; Jannet Castellanos MD Signed BEDSIDE GLUCOSE Collected: 08/06/2017 Status: F Source: [place] 6:30 AM [facility] REPOSITORY TYPE CODE TESTS RESULT OUT OF REFERENCE UNITS RANGE LAB L501.080 70-110 mg/dL High BEDSIDE GLU 112 Result Comment: MANAGEMENT OF PATIENT CARE PER NURSING PROTOCOL Performed By: #### L501.080 #### [facility] Laboratory Point of Care [address] [place] [address] CHEST PA AND LATERAL Observed: 08/06/2017 Status: F Source: [place] 4:08 AM [facility] REPOSITORY [facility] Imaging Services [address] [place] [address] Chest PA and Lateral MR#: [id number] Acct: [id number] Name: HEATH OTTO Rep #: [id number] : 1935 M 82 From: Octavio Kurtz MD PCP: Salima Tuttle MD Status: ADM NATALEE Study: Chest PA and Lateral Date of Exam: 08/06/17 Exam# [id number] Ordering Dr: Melissa Spangler STUDY: X-RAY CHEST REASON FOR EXAM: Male, 82 years old. Cough and shortness of breath. TECHNIQUE: PA and lateral views of the chest. COMPARISON: Comparison is made with prior study dated May 27, 2017. FINDINGS: Stable increased markings at the left lung base with blunting of the left costophrenic angle. This is in keeping with the pleural-parenchymal scarring. No new infiltrate is seen. Sternal cerclage wires and vascular clips are present from a prior sternotomy and coronary artery bypass graft procedure (CABG). A left-sided dual-chamber pacemaker is seen. Borderline cardiomegaly. Normal mediastinum and jose antonio. Normal visualized pulmonary arteries. There is atherosclerotic calcification of the aortic arch with tortuosity. There are degenerative changes of the visualized thoracic spine. Normal visualized ribs, clavicles, and shoulders. There is no demonstrated abnormality of the visualized soft tissue structures of the upper abdomen. RAD/Chest PA and Lateral IMPRESSION: Stable pleural parenchymal changes at the left lung base. No other abnormality is seen. Electronically Signed: Octavio Kurtz MD at 8:47 EDT Tel [phone], Service support , CC: Salima Tuttle MD; Melissa Spangler Field Observer: Signed BEDSIDE GLUCOSE Collected: 08/05/2017 Status: F Source: [place] 11:07 PM [facility] REPOSITORY TYPE CODE TESTS RESULT OUT OF REFERENCE UNITS RANGE LAB L501.080 70-110 mg/dL High BEDSIDE GLU 165 Result Comment: MANAGEMENT OF PATIENT CARE PER NURSING PROTOCOL Performed By: #### L501.080 #### [facility] Laboratory Point of Care [address] [place] [address] BEDSIDE GLUCOSE Collected: 08/05/2017 Status: F Source: [place] 5:35 PM [facility] REPOSITORY TYPE CODE TESTS RESULT OUT OF REFERENCE UNITS RANGE LAB L501.080 70-110 mg/dL High BEDSIDE GLU 117 Result Comment: MANAGEMENT OF PATIENT CARE PER NURSING PROTOCOL Performed By: #### L501.080 #### [facility] Laboratory Point of Care [address] [place] [address] BEDSIDE GLUCOSE Collected: 08/05/2017 Status: F Source: [place] 11:38 AM [facility] REPOSITORY TYPE CODE TESTS RESULT OUT OF REFERENCE UNITS RANGE LAB L501.080 70-110 mg/dL High BEDSIDE GLU 178 Result Comment: MANAGEMENT OF PATIENT CARE PER NURSING PROTOCOL Performed By: #### L501.080 #### [facility] Laboratory Point of Care [address] [place] [address] HIPS B/L MIN 2 Observed: 08/05/2017 Status: F Source: [place] VIEWS W/ PELVIS 7:14 AM [facility] REPOSITORY [facility] Imaging Services [address] [place] [address] Hips B/L min 2 views w/ Pelvis MR#: [id number] Acct: [id number] Name: HEATH OTTO Rep #: [id number] : 1935 M 82 From: Octavio Kurtz MD PCP: Salima Tuttle MD Status: ADM NATALEE Study: Hips B/L min 2 views w/ Pelvis Date of Exam: 08/05/17 Exam# [id number] Ordering Dr: Kate Martins DO STUDY: X-RAY - PELVIS AND BILATERAL HIPS REASON FOR EXAM: Male, 82 years old. Right groin pain. No known injury. TECHNIQUE: Radiological exam, hip, bilateral, with pelvis when performed; minimum of 5 views COMPARISON: None. FINDINGS: There is a non-specific bowel gas pattern. Normal visualized soft tissue structures. Normal bilateral iliac wings, sacroiliac joints and visualized sacrum. Normal bilateral superior and inferior pubic rami. Normal pubic symphysis. Normal bilateral ischial tuberosities. Normal visualized right femoral head. There is osteoarthritic spur formation of the right acetabular rim. There is mild articular joint space narrowing of the right hip. Normal visualized left femoral head. Normal left acetabulum. There is mild articular joint space narrowing of the left hip. RAD/Hips B/L min 2 views w/ Pelvis IMPRESSION: Mild degree of both degenerative changes of the hip joints bilaterally. Electronically Signed: Octavio Kurtz MD at 12:59 EDT Tel [phone], Service support , CC: Salima Tuttle MD; Rocio Martins Field Observer: Signed BEDSIDE GLUCOSE Collected: 08/05/2017 Status: F Source: [place] 5:57 AM [facility] REPOSITORY TYPE CODE TESTS RESULT OUT OF REFERENCE UNITS RANGE LAB L501.080 70-110 mg/dL High BEDSIDE GLU 149 Result Comment: MANAGEMENT OF PATIENT CARE PER NURSING PROTOCOL Performed By: #### L501.080 #### [facility] Laboratory Point of Care [address] [place], [place] [address] BASIC METABOLIC Collected: 08/05/2017 Status: F Source: [place] PROFILE (BMP) 5:14 AM [facility] REPOSITORY TYPE CODE TESTS RESULT OUT OF RANGE REFERENCE UNITS LAB L501.0100 74-106 mg/dL High GLU 141 Result Comment: Fasting Glucose result greater than or equal to 126 mg/dL suggests DIABETES MELLITUS per A.D.A. criteria. Please note revised GLUCOSE reference range effective 2017. LAB L501.1000 7-18 mg/dL High BUN 32 LAB L501.1100 0.70-1.30 mg/dL High CREAT,SERUM 2.52 Result Comment: The validity of the calculated GFR AND GFRAA in patients over 70 years has not been determined. Clinical correlation is essential. LAB L501.1110 >60 mL/min Low EST GFR 26 Result Comment: Non- GFR Calc LAB L501.1115 >60 mL/min Low EST GFR - AA 32 Result Comment: GFR Calc LAB L501.1255 ml/min Normal Estimated CRCL 21.49 LAB L501.1300 10-20 RATIO Normal BUN/CRE 12.7 LAB L501.2200 8.5-10 mg/dL Normal .1 CA 9.1 LAB L501.5300 136-14 mmol/L Normal 5 NA 142 LAB L501.5600 3.5-5. mmol/L Normal 1 K 4.5 LAB L501.5900 98-107 mmol/L Normal CL 106 LAB L501.6100 21.0-3 mmol/L Normal 2.0 CO2 28.0 LAB L501.6200 5-15 Normal GAP 8 Performed By: #### L500.2500 #### [facility] [address] [place], [address] CBC W/DIFF, AUTOMATED Collected: 08/05/2017 Status: F Source: [place] 5:14 AM [facility] REPOSITORY TYPE CODE TESTS RESULT OUT OF RANGE REFERENCE UNITS LAB L100.1000 4.4-11.0 K/mm3 Low WBC 4.2 LAB L100.1200 4.6-6.2 M/mm3 Low RBC 3.92 LAB L100.1300 13.0-16.5 g/dl Low HGB 11.6 LAB L100.1400 40-54 % Low HCT 35.8 LAB L100.1500 80-94 fL Normal MCV 91.3 LAB L100.1600 27.0-32.0 pg Normal MCH 29.6 LAB L100.1700 32-36 g/gl Normal MCHC 32.4 LAB L100.1810 11.6-14.6 % High RDW CV 16.4 LAB L100.1820 35.1-43.9 fl High RDW SD 54.9 LAB L100.1900 150-450 K/mm3 Normal PLT 263 LAB L100.2000 6.2-12.0 fl Normal MPV 9.8 LAB L100.2100 47-70 % Normal NEUT% 65.4 LAB L100.2200 19-41 % Normal LY% 20.3 LAB L100.2300 0-10 % High MONO% 11.1 LAB L100.2400 0-5 % Normal EO% 2.8 LAB L100.2500 0-1 % Normal BASO% 0.2 LAB L100.2550 0.0-0.9 % Normal IM GRAN % 0.200 Result Comment: IG% - Immature Granulocytes (promyelocytes, myelocytes and metamyelocytes) > 1% indicates that a LEFT SHIFT is Present. LAB L100.2620 2.0-7.7 X10 3/uL Normal Absolute Neut 2.8 LAB L100.2720 0.83-4.51 X10 3/ul Normal Absolute Lymph 0.86 Performed By: #### L100.0100 #### [facility] [address] [place], [address] LIVER PROFILE Collected: 08/05/2017 Status: F Source: [place] 5:14 AM [facility] REPOSITORY TYPE CODE TESTS RESULT OUT OF RANGE REFERENCE UNITS LAB L501.1500 6.4-8.2 g/dL Low T PROT 6.2 LAB L501.1800 3.2-5.0 g/dL Normal ALB 3.5 LAB L501.1950 2.2-4.2 g/dL Normal GLOB 2.7 LAB L501.4100 15-37 U/L Low AST 13 LAB L501.4305 45-117 U/L Normal ALK P 51 LAB L501.4405 16-61 U/L Low ALT 15 LAB L501.4600 0.20-1.00 mg/dL High T BILI 1.20 LAB L501.4700 0.00-0.30 mg/dL Normal D BILI 0.27 Performed By: #### L500.3400, L501.2300, L501.5200, L501.9910 #### [facility] [address] [place], [address] PHOSPHORUS Collected: 08/05/2017 Status: F Source: [place] 5:14 AM [facility] REPOSITORY TYPE CODE TESTS RESULT OUT OF RANGE REFERENCE UNITS LAB L501.2300 2.5-4.9 mg/dL Normal PHOS 4.4 Performed By: #### L500.3400, L501.2300, L501.5200, L501.9910 #### [facility] [address] [place], [place], [id number] MAGNESIUM Collected: 08/05/2017 Status: F Source: [place] 5:14 AM [facility] REPOSITORY TYPE CODE TESTS RESULT OUT OF RANGE REFERENCE UNITS LAB L501.5200 1.6-2.6 mg/dL Normal MG 2.0 Performed By: #### L500.3400, L501.2300, L501.5200, L501.9910 #### [facility] [address] [place], [place], [id number] PSA,TOTAL - ANNUAL Collected: 08/05/2017 Status: F Source: [place] SCREEN 5:14 AM [facility] REPOSITORY TYPE CODE TESTS RESULT OUT OF RANGE REFERENCE UNITS LAB L501.9910 0.00-4.00 ng/mL Normal PSA,TOT 3.84 SCREEN Result Comment: This test was performed using the TPSA assay method for the [employer] chemistry system. Values obtained with different assay methods cannot be used interchangably. When changing PSA assays in the course of monitoring a patient, additional sequential testing should be carried out to confirm baseline values. Performed By: #### L500.3400, L501.2300, L501.5200, L501.9910 #### [facility] [address] [place], [address] HISTORY AND PHYSICAL Observed: 08/05/2017 Status: F Source: [place] EXAM 1:17 AM [facility] REPOSITORY [facility] Medical Records Department [address] [place] [address] History and Physical 08/04/17 2337 MR#: [id number] Acct: [id number] Name: HEATH OTTO Rep #: [id number] : 1935 82 From: Cruzito Vences DO PCP: Salima Tuttle MD Status: ADM NATALEE Y Location: [place] [address]1 ADDENDUM by Cruzito Vences DO on 08/05/17 at 0117 Code Visit Additional surgical history: Coronary artery stent placement, shoulder surgery, lumbar surgery secondary to compression fracture, appendectomy 08/05/17 0117 <Electronically signed by Cruzito Vences DO> Date Cruzito Vences DO cc: Salima Tuttle MD; Cruzito Vences DO * Signed Problem List (1) Abdominal pain Status: Acute Qualifiers: Abdominal location: right lower quadrant Qualified Code(s): R10.31 - Right lower quadrant pain History of Present Illness Date of Admission: 08/04/17 Chief Complaint: Right lower quadrant abdominal pain The patient is a 82 year old M who was seen in the emergency room at [facility] with chief complaint of right lower quadrant/right inguinal area pain which he describes as sharp in nature that is been present for the last 8 days. It is not accompanied by urinary urgency or urinary frequency or dysuria. Patient states the pain is worse when weightbearing on his right leg, he did have some nausea with the lower abdominal discomfort, he denied any diarrhea, vomiting, or blood in the stool. Patient saw his PCP last 07/30/17 and was placed on Flomax (patient mentioned to the emergency room physician today that his family physician thought he may have had a kidney stone) and Vicodin, a KUB was ordered at that time which showed a moderate amount of fecal material in the colon but was otherwise unremarkable. Workup in the emergency room today consisted of a CT of the abdomen and pelvis without contrast, no acute abnormality was noted, patient had labs drawn which were remarkable for glucose of 206, BUN of 29, creatinine of 2.45. Urine culture obtained as an outpatient on 07/30/17 grew out small numbers of Sphingomonas paucimobilis. On physical examination, patient had right lower quadrant abdominal pain to palpation-more so in the right inguinal area near the inguinal ligament. No discernible inguinal hernia was noted to be present, patient's right testicle was not tender, it was not enlarged, and there was no scrotal edema. Patient was given IV morphine in the emergency room with some relief of the abdominal pain. Patient will be placed in observation status for right lower quadrant abdominal pain, general surgery was consulted and will see the patient tomorrow. Past Medical History Past Medical History (Chronic Problems): Chronic Problems (Last Updated 06/04/17 @ 09:46 by Abby Suero) Ischemic cardiomyopathy (Chronic) Presence of coronary angioplasty implant and graft (Chronic) Cardiac cath left, 2005 with TAXUS MARIUM of left main stem AND proximal OM1; Cardiac ath @ [facility] then PCI @ 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) Pneumonia (Chronic) Hypertensive heart disease without heart failure (Chronic) HTN (hypertension) (Chronic) HLD (hyperlipidemia) (Chronic) Esophageal reflux (Chronic) Diaphragmatic hernia (Chronic) Type II diabetes mellitus, uncontrolled (Chronic) 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) Unstable angina (Chronic) Renal insufficiency (Chronic) Cardiac pacemaker (Chronic) 12/14 Implantable Loop Recorder; 02/12/09 Removal of Loop Recorder; PPM Implant 05/2014 Ventricular tachycardia (Chronic) S/P PTCA (percutaneous transluminal coronary angioplasty) (Chronic) S/P CABG x 2 (Chronic) CABG with RUSH to LAD, SVG to Cx 06/17/05 Dr. Cotto; 06/25/05, Sternal Dehiscence strnal rewiring AND debridement CHF (congestive heart failure) (Chronic) NSTEMI (non-ST elevated myocardial infarction) (Chronic) Cardiomyopathy (Chronic) Allergies Penicillins Allergy (Verified 08/04/17 18:34) Anaphylaxis rosuvastatin calcium [From Crestor] Allergy (Verified 08/04/17 18:34) Unknown Xddobut-Pzk-Ttq Reductase Inhibitor Allergy (Verified 08/04/17 18:34) Other amlodipine [From Norvasc] Adverse Reaction (Intermediate, Verified 08/04/17 18:34) GI upset Home Medications: Ambulatory Orders Medication Instructions Recorded Clopidogrel Bisulfate [Plavix] 75 mg PO QHS 03/12/14 Folic Acid 5 mg PO QHS 03/12/14 Aspirin [Aspirin, Baby] 81 mg PO QHS 04/14/14 Surgical History: cholecystectomy, and PCI to LMA graft Psychiatric History: No pertinent psych hx Lives: Spouse/ Significant Other Smoking Status: Former smoker Tobacco Use: Non-smoker Alcohol: Rare Drugs: None - *Family History Paternal History Items: Heart Disease Maternal History Items: No pertinent history Review of Systems Constitutional: Denies: Anorexia, Chills, Fever, Night Sweats, Malaise, Weakness, Weight Change, Fatigue Eyes: Denies: Blurred vision, Cataracts, Conjunctivae Inflammation, Double vision, Drainage HEENT: Denies: Difficulty Swallowing, Dysphasia, Ear Pain, Eye Pain, Hearing Changes, Nasal bleeding, Nasal Congestion, Post Nasal Drip Cardiovascular: Denies: Chest Pain, Claudication, Chest Pressure, Chest Tightness, Edema, Heaviness, Palpitations, Paroxysmal Noc. Dyspnea Respiratory: Denies: Cough, Hemoptysis, Pleuritic Pain, Shortness of Breath, Shortness of breath at rest, Shortness of breath upon exertion, Sputum production Gastrointestinal: Reports: Abdominal Pain, Nausea. Denies: Constipation, Diarrhea, Dyspepsia, Hematemesis, Hematochezia, Melena, Vomiting Genitourinary: Denies: Dysuria, Frequency, Hematuria, Hesitancy, Incontinence, Nocturia, Retention, Urgency Musculoskeletal: Reports: Leg Pain, - - Patient complains of pain in the right inguinal area when walking or weightbearing. Denies: Back Pain, Foot Pain, Hand Pain, Joint stiffness, Joint swelling, Joint Tenderness Skin: Denies: Dryness, Pruritis, Rash Neurological: Denies: Blurred vision, Double vision, Change in Speech, Slurred speech, Difficulty swallowing, Focal weakness, Headaches, Incoordination, Numbness, Tingling Psychiatric: Denies: Anxiety, Depression, Homicidal Ideations, Suicidal Ideations Endocrine: Denies: Change in Body Habitus, Heat/ Cold Intolerance, Polydipsia, Polyuria Hematologic/ Lymphatic: Denies: Adenopathy, Anemia, Easy Bruising, Easy Bleeding, Petechiae, Purpura VTE Information - Inpt Only VTE Present on Admission: No VTE Mechan Device Prophylaxis: None VTE Pharm Prophylaxis ordered?: Yes Patient Problems: Active and Suspected Problems (Last Updated 06/04/17 @ 09:46 by Abby Suero) Abdominal pain (Acute) - Physical Exam General: Alert, Oriented x3, Cooperative, No apparent distress, Well developed, Well nourished HEENT: Atraumatic, PERRLA, EOMI, Normocephalic Oral: Moist Mucosa Neck: Supple, No JVD, Negative Carotid Bruits, No Nuchal Rigidity, Trachea Midline, Thyroid Normal Size and Texture Lungs: Clear to auscultation, Normal air movement, No rhonchi, No wheeze, No rales Cardiovascular: Regular rate, Regular Rhythm, Normal S1, Normal S2, No murmurs, No Ectopic Activity, PMI Normal, No rub noted, No Gallop Abdomen: Bowel Sounds Present, Soft, Non-Distended, Tender - Tenderness to palpation is noted over the right lower quadrant extending into the right inguinal area, No hernias noted Extremities: No clubbing, No cyanosis, No edema, Capillary Refill Less than 3 Seconds Skin: No rashes, No breakdown Musculoskeletal: Tenderness - Tenderness to palpation in the right inguinal area noted Neurological: Cranial nerves II-XII grossly intact, Neuro grossly intact, Muscle tone normal, Sensory exam intact to light touch and pain, Coordination normal Psych/Mental Status: Normal Affect, Appropriate, Alert and oriented to time, place, person, mood and affect Vital Signs Temp Pulse Resp BP Pulse Ox 97.8 F 66 16 139/64 H 95 08/04/17 22:39 08/04/17 22:39 08/04/17 22:39 08/04/17 22:39 08/04/17 22:39 Laboratory Tests Past 24 Hrs Lactic Acid 0.6 Assessment/Plan Active and Suspected Problems (Last Updated 06/04/17 @ 09:46 by Abby Suero) Abdominal pain (Acute) #1 right lower quadrant abdominal pain-etiology unclear, patient will be placed in observation status on MedSurg, he will be placed on clear liquids, IV fluids will be administered, he will be seen in consultation by general surgery. I do not feel the patient's pain is characteristic of ischemic bowel #2 right inguinal area pain-I am unsure as to what the etiology of this discomfort is, it could be a inguinal ligamental strain or pain relating to the right hip. If general surgery does not feel there is a definite surgical diagnosis for the patient's abdominal pain, this area may need to be x-rayed or the patient may need to be seen by orthopedic surgery. Patient relates to pain in his right leg over the inguinal area when he ambulates or bears weight. 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 Castellanos by the emergency room physician. I will leave it up to general surgery to order further studies as needed #4 type 2 diabetes-patient's blood sugar will be monitored and sliding scale insulin will be administered if needed #5 Coronary artery disease #6 ischemic cardiomyopathy #7 hypertension #8 hyperlipidemia Code Visit OBSV E AND M: [id number] Initial observation care L3 08/05/17 0115 <Electronically signed by Cruzito Vences DO> Date Cruzito Mascorroignlazaro Signature: Date (if applicable) CC: Salima Tuttle MD; Cruzito Vences DO Signed EMERGENCY DEPARTMENT Observed: 08/05/2017 Status: F Source: [place] 12:20 [facility] [place] [facility] Medical Records Department [address] [place] [address] Emergency Department Summary 08/04/17 2239 MR#: [id number] Acct: [id number] Name: HEATH OTTO Rep #: [id number] : 1935 82 From: Jalen Mei DO PCP: Salima Tuttle MD Status: ADM NATALEE - ER Visit Summary Date of Service: 08/04/17 Chief Complaint: Abdominal pain History of Present Illness: The patient is a 82 M who presents with 1 week of a continuous waxing and waning sharp stabbing right lower quadrant abdominal pain. Describes it as severe. He notes occasional nausea but no vomiting or diarrhea no constipation. Denies any urinary symptoms. No radiation of the pain. The pain is worse with movement and in particular walking. No known trauma. Patient denies any fevers. Patient denies any rashes. He has history of coronary artery disease and kidney stones. He states that this feels very similar to kidney stones. Physical Examination: Afebrile vital signs are stable Gen: Well-nourished well-developed Head: Normocephalic atraumatic Eyes: Perrl EOMI ENT: TMs clear no rhinorrhea moist mucous membranes Neck: Supple no lymphadenopathy no JVD nontender CVS: Regular rate rhythm no murmurs normal S1-S2 Respiratory: No distress clear to auscultation bilaterally chest nontender Abdomen: Soft tender to palpation in the far low right quadrant with guarding and no rebound. Pain seems to be just cephalad to the inguinal ligaments. There are no rashes. There is no obvious hernia. R nondistended normal bowel sounds no masses : Uncircumcised. There is no testicular pain. No epididymis pain. No hernia. Back: Nontender Extremity: Nontender no edema Skin: Normal color no rash Neuro: alert orientated 3 CN II-XII intact normal strength sensation reflexes gait cerebellar Psych: Normal affect normal mood Test Results: CBC and urinalysis normal. BUN at 29 and creatinine 2.45. Noncontrasted CT demonstrated renal cyst but no obvious cause for the patient's pain. Emergency Department Course and Treatment: The patient received morphine Toradol Zofran. He has not had improvement of his pain. He does not feel like he is able to go home. The does not wish him to go home. I spoke with Dr. Vences and Dr. Castellanos. Plan will be admission for pain control and further care. Impression: 1. Acute abdominal pain This note was generated with Tabblo dictation software. It may contain incorrect words, spelling, and punctuation that were not noted in review of the chart prior to signing ED Disposition - Plan for ED Patient: Chief Complaint: Flank Pain What to do if you have Problems For any increased pain, shortness of breath, bleeding, nausea or vomiting, chest pain, or any unexpected problems, contact your Primary Care Provider. Call [facility] ([phone]) or report to the closest Emergency Room. Call 911 if necessary. 08/05/17 0020 <Electronically signed by Jalen Mei DO> Date Jalen Mei DO Cosigner Signature (If Indicated): Date CC: Salima Tuttle MD LACTIC ACID Collected: 08/04/2017 Status: F Source: [place] 11:05 PM [facility] [place] REPOSITORY Order Comment: Yes/No query for Sepsis Lactate Rule Y TYPE CODE TESTS RESULT OUT OF RANGE REFERENCE UNITS LAB L503.6005 0.4-2.0 mmol/L Normal LACTIC ACID 0.6 Performed By: #### L503.6005 #### [facility] [address] [place], [address] URINALYSIS, COMPLETE Collected: 08/04/2017 Status: F Source: [place] 8:12 PM [facility] REPOSITORY Order Comment: How was Urine Obtained? CLEAN CATCH TYPE CODE TESTS RESULT OUT OF RANGE REFERENCE UNITS LAB L400.3000 Yellow COLOR Normal Yellow LAB L400.3050 Clear Normal CLARITY Sl. Cloudy LAB L400.3200 Normal mg/dl Normal GLUCOSE, UR Normal LAB L400.3300 Negative mg/dL Normal BILIRUBIN URINE Negative LAB L400.3400 Negative mg/dl Normal KETONE UR Negative LAB L400.3465 1.002-1.030 Normal SP.GR. DIPSTX 1.020 LAB L400.3550 5.0 - 8.0 pH UR Normal 5.0 LAB L400.3600 Negative mg/dl High PROT DIPSTX 500 LAB L400.3700 Normal mg/dl Normal UROBILI Normal LAB L400.3750 Negative Normal NITRITE UR Negative LAB L400.3780 Negative /ul Normal OCCULT BLOOD-UR Negative LAB L400.3800 Negative /ul LEUK Normal ESTERASE Negative LAB L400.4050 0-5 /hpf WBC Normal 0-5 SEEN LAB L400.4100 0-5 /hpf 0 Normal RBC-UA SEEN LAB L400.4150 0-5 /hpf SQUAM Normal EPI 0-5 SEEN LAB L400.4300 None Seen /hpf 0 Normal BACTERIA SEEN LAB L400.4350 <or=2+ /hpf 1+ Normal MUCUS, URINE LAB L400.4400 0-5 /lpf Normal HYALINE CAST 10-25 SEEN LAB L400.4450 0-5 /lpf FINE Normal GRAN CAST 0-5 SEEN Performed By: #### L400.0001 #### [facility] [address] [place], [place], [address] CBC W/DIFF, AUTOMATED Collected: 08/04/2017 Status: F Source: [place] 7:10 PM [facility] REPOSITORY TYPE CODE TESTS RESULT OUT OF RANGE REFERENCE UNITS LAB L100.1000 4.4-11.0 K/mm3 Normal WBC 6.1 LAB L100.1200 4.6-6.2 M/mm3 Low RBC 4.47 LAB L100.1300 13.0-16.5 g/dl Normal HGB 13.2 LAB L100.1400 40-54 % Normal HCT 40.7 LAB L100.1500 80-94 fL Normal MCV 91.1 LAB L100.1600 27.0-32.0 pg Normal MCH 29.5 LAB L100.1700 32-36 g/gl Normal MCHC 32.4 LAB L100.1810 11.6-14.6 % High RDW CV 16.3 LAB L100.1820 35.1-43.9 fl High RDW SD 53.7 LAB L100.1900 150-450 K/mm3 Normal PLT 330 LAB L100.2000 6.2-12.0 fl Normal MPV 10.1 LAB L100.2100 47-70 % High NEUT% 72.8 LAB L100.2200 19-41 % Low LY% 16.0 LAB L100.2300 0-10 % Normal MONO% 6.9 LAB L100.2400 0-5 % Normal EO% 3.6 LAB L100.2500 0-1 % Normal BASO% 0.5 LAB L100.2550 0.0-0.9 % Normal IM GRAN % 0.200 Result Comment: IG% - Immature Granulocytes (promyelocytes, myelocytes and metamyelocytes) > 1% indicates that a LEFT SHIFT is Present. LAB L100.2620 2.0-7.7 X10 3/uL Normal Absolute Neut 4.5 LAB L100.2720 0.83-4.51 X10 3/ul Normal Absolute Lymph 0.98 Performed By: #### L100.0100 #### [facility] [address] [place], [address] BASIC METABOLIC Collected: 08/04/2017 Status: F Source: [place] PROFILE ([facility]) 7:10 PM [facility] REPOSITORY TYPE CODE TESTS RESULT OUT OF RANGE REFERENCE UNITS LAB L501.0100 74-106 mg/dL High GLU 206 Result Comment: Glucose result greater than or equal to 200 mg/dL suggests DIABETES MELLITUS per A.D.A. criteria. Please note revised GLUCOSE reference range effective 2017. LAB L501.1000 7-18 mg/dL High BUN 29 LAB L501.1100 0.70-1.30 mg/dL High CREAT,SERUM 2.45 Result Comment: The validity of the calculated GFR AND GFRAA in patients over 70 years has not been determined. Clinical correlation is essential. LAB L501.1110 >60 mL/min Low EST GFR 27 Result Comment: Non- GFR Calc LAB L501.1115 >60 mL/min Low EST GFR - AA 33 Result Comment: GFR Calc LAB L501.1255 ml/min Normal Estimated CRCL 22.11 LAB L501.1300 10-20 RATIO Normal BUN/CRE 11.8 LAB L501.2200 8.5-10 mg/dL Normal .1 CA 10.0 LAB L501.5300 136-14 mmol/L Normal 5 NA 140 LAB L501.5600 3.5-5. mmol/L Normal 1 K 5.0 LAB L501.5900 98-107 mmol/L Normal CL 104 LAB L501.6100 21.0-3 mmol/L Normal 2.0 CO2 27.0 LAB L501.6200 5-15 Normal GAP 9 Performed By: #### L500.2500 #### [facility] [address] [place], [address] ABDOMEN/PELVIS WITHOUT Observed: 08/04/2017 Status: F Source: [place] CONT 6:54 PM [facility] REPOSITORY [facility] Imaging Services [address] [place] [address] Abdomen/Pelvis without Cont MR#: [id number] Acct: [id number] Name: HEATH OTTO Rep #: [id number] : 1935 M 82 From: Mariia Orlando MD PCP: Salima Tuttle MD Status: REG ER Study: Abdomen/Pelvis without Cont Date of Exam: 08/04/17 Exam# [id number] Ordering Dr: Jlaen Mei DO CT Abdomen And Pelvis W/O Contrast INDICATION: RT FLANK PAIN X ONE WEEK. Hx of kidney stones. HTN and diabetes-rx controlled. Hx of [place] x 2-3,ICD,pacemaker COMPARISON: July 14, 2011 TECHNIQUE: Noncontrast axial CT examination of the abdomen and pelvis with coronal and sagittal reformatted images. FINDINGS: There is a dural based 1.6 cm rounded atelectasis seen at the left posterior lung base, unchanged compared to the prior study from 2011. The heart size is mildly prominent. The liver is normal in size. The gallbladder is surgically absent. The spleen is enlarged and measures 15 cm in craniocaudal dimension. Size and shape of the spleen is not significantly changed compared to 2012. Bilateral cortical renal atrophy is noted and multiple bilateral cortical renal cysts. Bowel loops are nondistended. There is no evidence of free air or free fluid. The prostate gland is mildly prominent with 5 cm diameter and demonstrates coarse calcifications.. There is no evidence of free air or free fluid. The osseous structures demonstrate multilevel bridging osteophytes and degenerative disc disease at all lumbar levels. CT/Abdomen/Pelvis without Cont IMPRESSION: No acute abnormality identified in the abdomen or pelvis. Stable rounded atelectasis at the left lung base. Stable splenomegaly. Stable bilateral cortical renal cysts. Stable prostatomegaly with heterogeneity. Correlation with PSA is recommended. at 1949 Reported and signed by: Mariia Orlando MD Electronically Signed: Mariia Orlando MD at 19:47 EDT Tel , Service support , CC: Salima Tuttle MD; Jalen Mei DO Field Observer: Signed BASIC METABOLIC Collected: 07/30/2017 Status: F Source: [place] PROFILE (BMP) 11:03 AM [facility] REPOS[facility]ORY Order Comment: Order Date: 07/30/17 Order Info: 0667-1 - BMP TYPE CODE TESTS RESULT OUT OF RANGE REFERENCE UNITS LAB L501.0100 74-106 mg/dL High GLU 192 Result Comment: Fasting Glucose result greater than or equal to 126 mg/dL suggests DIABETES MELLITUS per A.D.A. criteria. Please note revised GLUCOSE reference range effective 2017. LAB L501.1000 7-18 mg/dL High BUN 29 LAB L501.1100 0.70-1.30 mg/dL High CREAT,SERUM 2.23 Result Comment: The validity of the calculated GFR AND GFRAA in patients over 70 years has not been determined. Clinical correlation is essential. LAB L501.1110 >60 mL/min Low EST GFR 30 Result Comment: Non- GFR Calc LAB L501.1115 >60 mL/min Low EST GFR - AA 37 Result Comment: GFR Calc LAB L501.1300 10-20 RATIO Normal BUN/CRE 13.0 LAB L501.2200 8.5-10.1 mg/dL CA Normal 9.1 LAB L501.5300 136-145 mmol/L NA Normal 140 LAB L501.5600 3.5-5.1 mmol/L K Normal 4.6 LAB L501.5900 98-107 mmol/L CL Normal 105 LAB L501.6100 21.0-32.0 mmol/L Normal CO2 27.0 LAB L501.6200 5-15 Normal GAP 8 Performed By: #### L500.2500, L100.0100 #### [facility] [address] [place], [address] CBC W/DIFF, AUTOMATED Collected: 07/30/2017 Status: F Source: [place] 11:03 AM [facility] REPOS[facility]ORY Order Comment: Order Date: 07/30/17 Order Info: 0184-1 - CBCD TYPE CODE TESTS RESULT OUT OF RANGE REFERENCE UNITS LAB L100.1000 4.4-11.0 K/mm3 Normal WBC 5.7 LAB L100.1200 4.6-6.2 M/mm3 Low RBC 4.41 LAB L100.1300 13.0-16.5 g/dl Normal HGB 13.0 LAB L100.1400 40-54 % Normal HCT 40.1 LAB L100.1500 80-94 fL Normal MCV 90.9 LAB L100.1600 27.0-32.0 pg Normal MCH 29.5 LAB L100.1700 32-36 g/gl Normal MCHC 32.4 LAB L100.1810 11.6-14.6 % High RDW CV 16.4 LAB L100.1820 35.1-43.9 fl High RDW SD 54.0 LAB L100.1900 150-450 K/mm3 Normal PLT 303 LAB L100.2000 6.2-12.0 fl Normal MPV 10.6 LAB L100.2100 47-70 % High NEUT% 72.9 LAB L100.2200 19-41 % Low LY% 16.2 LAB L100.2300 0-10 % Normal MONO% 6.6 LAB L100.2400 0-5 % Normal EO% 3.5 LAB L100.2500 0-1 % Normal BASO% 0.5 LAB L100.2550 0.0-0.9 % Normal IM GRAN % 0.300 Result Comment: IG% - Immature Granulocytes (promyelocytes, myelocytes and metamyelocytes) > 1% indicates that a LEFT SHIFT is Present. LAB L100.2620 2.0-7.7 X10 3/uL Normal Absolute Neut 4.2 LAB L100.2720 0.83-4.51 X10 3/ul Normal Absolute Lymph 0.93 Performed By: #### L500.2500, L100.0100 #### [facility] [address] [place], [address] ABDOMEN SINGLE VIEW Observed: 07/30/2017 Status: F Source: [place] 10:58 AM [facility] REPOSITORY [facility] Imaging Services [address] [place] [address] Abdomen Single View MR#: [id number] Acct: [id number] Name: HEATH OTTO Rep #: [id number] : 1935 M 82 From: Octavio Kurtz MD PCP: Salima Tuttle MD Status: REG CLI Study: Abdomen Single View Date of Exam: 07/30/17 Exam# [id number] Ordering Dr: Ramon Crockett MD STUDY: X-RAY - ABDOMEN/PELVIS REASON FOR EXAM: Male, 82 years old. History of nephrolithiasis. TECHNIQUE: Two AP supine views of the abdomen and pelvis. COMPARISON: None. FINDINGS: Increased linear markings at the left lung base suggestive of scarring with blunting of the left costophrenic angle. There is a moderate amount of colonic fecal material. The visualized liver, spleen and kidneys are grossly normal in size and morphology. Normal soft tissue structures. There are diffuse degenerative changes of the visualized lumbar spine. RAD/Abdomen Single View IMPRESSION: Moderate amount of fecal material is seen in the colon. Electronically Signed: Octavio Kurtz MD at 11:25 EDT Tel [phone], Service support , CC: Salima Tuttle MD; Ramon Crockett MD Field Observer: Signed Observed: 07/30/2017 Status: F Source: [place] CULTURE, URINE 10:00 AM [facility] REPOSITORY Urine Culture ORGANISM 1: Sphingomonas paucimobilis [place] Count 1000-10,000 Sphingomonas paucimobilis: REACTION Ceftazidime *NF 8 S Ceftriaxone $ 32 I Ciprofloxacin $ 0.5 S Gentamicin $ 8 I Imipenem *NF 2 S Levofloxacin $ 1 S Piperacillin/Tazobactam $$ <=4 S Tobramycin $ >=16 R Trimethoprim/Sulfametho $ <=20 S (NF) indicates non-formulary drug at [facility]. Approval by Infectious Disease Specialist required before non-formulary drugs may be ordered and/or dispensed. Performed By: #### M100.0650 #### [facility] [address] [place], [address] CARDIOLOGY VISIT Observed: 06/05/2017 Status: F Source: [place] REPORT 4:10 PM [facility] REPOS[facility]ORY [facility] [address] [place] [address] OFFICE VISIT Date of Service: 06/04/17 MR#: [id number] Acct: [id number] Name: HEATH OTTO Rep #: [id number] : 1935 Provider: Clari Jameson Age/Sex: 81/M Location: [facility] [place] Status: Signed HPI HPI Details: HEATH OTTO, is a 81 M who presents to the office today for a cardiovascular follow-up. He has a history of coronary artery disease with bypass surgery in 2005 where he underwent an RUSH to the LAD, SVG to the circumflex. In 2013 he had stenting to his proximal circumflex and proximal LAD, proximal to mid first OM. In 2014 he had a PCI to his circumflex. 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 Pt was in the ER 2 weeks ago for chest pain. He was noted to have elevated BP. His Delta troponin was negative. He does complain of fatigue. He feels that this has not gotten any better since last March. He has not had any chest discomfort except for his ER visit. He does feel that he is SOB but does not state that it is any worse than it was since last March. He does not have any palpitations that he is aware. He does have positional dizziness. This is not new. He does not have any edema. Intake Vital Signs06/04/17 Height 5 ft 7 in 06/04/17 Weight: 185 lb 06/04/17 Body Mass Index (BMI) 29.0 06/04/17 Blood Pressure 110/68 06/04/17 Blood Pressure Location Lt brachial Intake Visit Reasons: 6 M Computer Aided Design Operator Required: No Accompanied by: None Is patient in pain?: No Allergies Penicillins Allergy (Verified 06/04/17 09:49) Anaphylaxis rosuvastatin calcium [From Crestor] Allergy (Verified 06/04/17 09:49) Unknown Poohcfv-Owx-Imy Reductase Inhibitor Allergy (Verified 06/04/17 09:49) Other amlodipine [From Norvasc] Adverse Reaction (Intermediate, Verified 06/04/17 09:49) GI upset Medications Clopidogrel Bisulfate [Plavix] 75 mg PO QHS 03/12/14 [History Confirmed 06/04/17] Folic Acid 5 mg PO QHS 03/12/14 [History Confirmed 06/04/17] Aspirin [Aspirin, Baby] 81 mg PO QHS 04/14/14 [History Confirmed 06/04/17] Multivitamins,Therapeutic [Multivitamin] 1 tab PO QHS 04/14/14 [History Confirmed 06/04/17] Nitroglycerin [Nitrostat] 0.4 mg SUBLINGUAL Q5M PRN 05/09/14 [History Confirmed 06/04/17] Ubidecarenone [Q-Sorb Co Q-10] 100 mg PO QHS 02/25/16 [History Confirmed 06/04/17] Carvedilol [Coreg (Beta David)] 3.125 mg PO BID #60 tab 02/27/16 [Rx Confirmed 06/04/17] Isosorbide Mononitrate [Monoket] 20 mg PO BID@0800,1500 #60 tab 03/07/16 [Rx Confirmed 06/04/17] amlodipine 5 mg tablet 5 mg PO QDAY tab 06/04/17 [History Confirmed 06/04/17] furosemide 40 mg tablet 20 mg PO DAILY tab 06/04/17 [History] metformin ER 500 mg tablet,extended release 24 hr PO 90 Days #90 06/04/17 [History Confirmed 03/29/18] Ejection fraction %: 25 to 29 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) HTN (hypertension) (Chronic) HLD (hyperlipidemia) (Chronic) Type II diabetes mellitus, uncontrolled (Chronic) 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) Renal insufficiency (Chronic) Cardiac pacemaker (Chronic) NSTEMI (non-ST elevated myocardial infarction) (Chronic) Surgical History Presence of coronary angioplasty implant and graft (Chronic) S/P PTCA (percutaneous transluminal coronary angioplasty) (Chronic) S/P CABG x 2 (Chronic) Family History Father Myocardial infarction Hypertension Heart disease Mother Hypertension Emphysema of lung FH: brain aneurysm Daughter Afib Social History Smoking Status: Former smoker how long ago did patient quit smokin alcohol intake: never substance use type: does not use caffeine: Yes Type: coffee Number of servings: 3 what type of physical activity do you participate in: walking, bicycling frequency: daily duration: 30-45 minutes/day seatbelt use: always do you feel safe at home: Yes ROS Const Const: Positive for fatigue; negative for weakness, fever(s) or headache(s) Eyes Eyes: Negative for blind spots, loss of peripheral vision or transient loss of vision ENT ENT: Positive for dizziness; negative for headache(s), tinnitus or Nosebleed/epistaxis Cardio Chest Pain: Yes Palpitations: No Edema: None Muscle aches with walking: None Resp Respiratory: Positive for SOB with activity; negative for SOB at rest, Cough or SOB orthopnea\SOB lying down GI GI: Negative nausea, vomiting, heartburn or vomiting blood/hematemesis : Negative for hematuria Musc Musc: Positive for muscle weakness; negative for muscle aches/ myalgia Neuro Neuro: Positive for dizziness, lightheadedness and orthostatic symptoms; negative for weakness, headache(s), near syncope or syncope Andres Hematologic/Lymphatic: Negative for easy bleeding Endo Endo: Positive for fatigue Cardiology Exam Const Appearance: cooperative, no acute distress and well developed Orientation: alert, awake and oriented x3 Head Head: normocephalic and atraumatic Mouth: moist mucous membranes Eyes General: appearance normal, both eyes and all related structures Conjunctivae: conjunctivae normal Pupils: PERRL EOM: EOM intact bilaterally Neck Neck: normal visual inspection, no lymphadenopathy and no JVD Carotids: Negative bruit Neck Mass: Negative Neck mass Chest Chest inspection: normal inspection of the chest, symmetric chest movement and Pacemaker/ICD Yes left pectoral incision Auscultation: Bilateral: Clear to Auscultation Cardio Palpation: normal PMI Rate: regular rate Rhythm: regular rhythm Heart sounds: S1 normal, S2 normal and murmur; negative rub or gallop Murmur: Grade 1/6, soft, mid systolic and radiates to carotids GI GI: normal to inspection, soft, no hepatosplenomegaly and bowel sounds present; negative tender Neuro General: alert, awake, oriented x3, CN's II-XI intact bilaterally and moves all extremities Extremities Pulses: Normal: Right Posterior Tibial Pulse, Left Posterior Tibial Pulse, Right Radial Pulse, Left Radial Pulse Lower Extremity Edema: None: Bilateral Psych Psychological: normal affect Supplemental Info Echocardiogram in 2016 demonstrated Mildly dilated left ventricle. The estimated ejection fraction is 27 %. There is severe global hypokinesis of the left ventricle. Mild tricuspid valve insufficiency. Transmitral and pulmonary venous doppler flow suggestive of impaired relaxation of left ventricle. Compared to prior study, there is no significant change. Heart cath in 02/2016 demonstrated He has a history of coronary artery disease with bypass surgery in 2005 where he underwent an RUSH to the LAD, SVG to the circumflex. In 2013 he had stenting to his proximal circumflex and proximal LAD, proximal to mid first OM. In 2014 he had a PCI to his circumflex. 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 Assessment AND Plan 1. Atherosclerosis of [place] coronary artery of [place] heart without angina pectoris I25.10 Plan - BO Leos Patient has not had any symptoms of angina. He will continue with current aggressive medical management and risk factor modification. Did review testing with patient. He was assured that nothing is changed with his cardiac testing that we have done over the last several years. He will continue to be monitored closely 2. Essential hypertension I10 Plan - BO Leos Blood pressure is well controlled on current medications, we do not recommend any changes at this time. 3. Pure hypercholesterolemia E78.00; E78.0 Plan - BO Leos Recent lipid profile demonstrates total cholesterol 145, HDL 37, LDL 80. Will not make any adjustments. We will continue to monitor. 4. Cardiomyopathy, ischemic I25.5 Plan - BO Leos Patient does have ischemic cardiomyopathy. He does not have any symptoms of congestive heart failure. He will continue with current medications. We will continue to monitor by history, exam and echocardiograms as deemed appropriate. 5. Cardiac pacemaker Z95.0 12/14 Implantable Loop Recorder; 02/12/09 Removal of Loop Recorder; PPM Implant 05/2014 Plan - BO Leos Pacemaker is functioning appropriately. We will continue to monitor at routine scheduled pacemaker interrogations. 6. Chronic fatigue R53.82 Plan - BO Leos Reviewed with patient possible occurrences for fatigue. Patient does have multiple issues that could be contributing to this. Advised that he follow-up with his primary care doctor regarding this. Plan Detail Other Medications Discontinued: Additional Comments - BO Leos The above patient was discussed with Dr. Fagan, he agrees with plan of care. Thank you for allowing us to participate in patient's plan of care, if you have any questions please do not hesitate to call. This note was generated using a voice recognition system and there may be incorrect words, spelling or punctuation errors that were not noted when reviewing the office note prior to saving. 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 transplanted heart: [place] heart Essential hypertension I10 Hypertension type: essential hypertension Pure hypercholesterolemia E78.00; E78.0 Hyperlipidemia type: pure hypercholesterolemia Cardiomyopathy, ischemic I25.5 Cardiac pacemaker Z95.0 Chronic fatigue R53.82 Fatigue type: chronic, unspecified Coding Level of Care Code Off vis,est,level 3 Diagnoses Atherosclerosis of [place] coronary artery of [place] heart without angina pectoris I25.10 Associated angina: without angina [place] vs. transplanted heart: [place] heart Essential hypertension I10 Hypertension type: essential hypertension Pure hypercholesterolemia E78.00; E78.0 Hyperlipidemia type: pure hypercholesterolemia Cardiomyopathy, ischemic I25.5 Cardiac pacemaker Z95.0 Chronic fatigue R53.82 Fatigue type: chronic, unspecified 06/04/17 0722 <Electronically signed by Clari SORIANO> Date Clari SORIANO 06/05/17 1610<Electronically signed by David Fagan MD> Rachealgabino Signature: Date (if applicable) David Fagan MD CC: Salima Tuttle MD 12 LEAD ELECTROCARDIOGRAM Observed: 05/29/2017 Status: F Source: TALIB 2:46 PM [facility] REPOSITORY [facility] Cardiovascular Services [address] [place] [address] 12 Lead EKG 05/27/171955 MR#: [id number] Acct: [id number] Name: HEATH OTTO Rep #: [id number] : 1935 81 From: David Fagan MD Attending Dr: Status: DEP ER Ordering Dr: Jalen Mei DO Date: 05/27/17 Location: ED Sex: M C Admitted: Test Reason : CP Blood Pressure : / mmHG Vent. Rate : 070 BPM Atrial Rate : 070 BPM P-R Int : 192 ms QRS Dur : 090 ms QT Int : 414 ms P-R-T Axes : 065 003 169 degrees QTc Int : 447 ms Atrial-paced rhythm with frequent ventricular-paced complexes ST AND T wave abnormality, consider lateral ischemia Abnormal ECG Confirmed by DAVID FAGAN MD ([id number]), scientific editor MARIIA BARNARD ([id number]) on 05/29/2017 2:45:43 PM Referred By: ELA Confirmed By:DAVID FAGAN MD 05/29/17 1445 Date David Fagan MD CC: Salima Tuttle MD; Jalen Mei DO Signed EMERGENCY DEPARTMENT Observed: 05/28/2017 Status: F Source: TALIB SUMMARY 12:00 AM [facility] REPOSITORY [facility] Medical Records Department [address] [place] [address] Emergency Department Summary 05/27/17 2224 MR#: [id number] Acct: [id number] Name: HEATH OTTO Rep #: [id number] : 1935 81 From: Jalen Mei DO PCP: Salima Tuttle MD Status: DEP ER - ER Visit Summary Date of Service: 05/27/17 Chief Complaint: Chest pain History of Present Illness: The patient is a 81 M arriving by EMS with a complaint of chest pain. Patient has a long history of ischemic cardiomyopathy. He has had CABG and stenting. He sees Dr. Fagan for cardiology. Patient states that his last heart catheterization was in February. He is treated medically at that time. But 1800 hrs. tonight he was alone at work when he parents a sudden onset of midsternal chest pain that rated up into his jaw on his throat. The patient states that after around 1 hour he called his . He told her that he felt like he was dying. Did not know what he should do so she called an ambulance. Administer some nitroglycerin which she states helps. EMS notes his initial blood pressure was greater than 200 which is since come down to the 140 range. Physical Examination: 157/73 temperature 98.7 heart rate 72 respirations are 16 pulse ox is 96% Gen: Well-nourished well-developed Head: Normocephalic atraumatic Eyes: Perrl EOMI ENT: TMs clear no rhinorrhea moist mucous membranes Neck: Supple no lymphadenopathy no JVD nontender CVS: Regular rate rhythm no murmurs normal S1-S2 Respiratory: No distress clear to auscultation bilaterally chest nontender Abdomen: Soft nontender nondistended normal bowel sounds no masses Back: Nontender Extremity: Nontender no edema Skin: Normal color no rash Neuro: alert orientated 3 CN II-XII intact normal strength sensation reflexes gait cerebellar Psych: Anxious Test Results: EKG shows a atrial paced rhythm with intermittent ventricularly paced rhythms at a rate of 70. Nightly 41 creatinine 2.65. Troponin less than 0.02. Chest x-ray negative. Delta troponin was negative Emergency Department Course and Treatment: After initial H AND P I spoke with Dr. Fagan. He did review our EKGs. The patient will have a delta troponin. Received nitroglycerin and morphine. He has been visiting with his family. He continues to have various aches sometimes having an ache in his jaw sometimes in his chest. Patient is eager to be discharged. Impression: 1. Chest pain This note was generated with Tabblo dictation software. It may contain incorrect words, spelling, and punctuation that were not noted in review of the chart prior to signing ED Disposition - Plan for ED Patient: Disposition: Home or Assisted Living Chief Complaint: Chest Pain Instructions: ED Chest Pain Atypical Unkn Cause Referrals: Salima Tuttle MD [Primary Care Provider] - David Fagan MD [STAFF PHYSICIAN] - Keep Néstor appointment What to do if you have Problems For any increased pain, shortness of breath, bleeding, nausea or vomiting, chest pain, or any unexpected problems, contact your Primary Care Provider. Call [facility] ([phone]) or report to the closest Emergency Room. Call 911 if necessary. 05/28/17 0000 <Electronically signed by Jalen Mei DO> Date Jalen Mei DO Cosigner Signature (If Indicated): Date CC: Salima Tuttle MD TROPONIN-I Collected: 05/27/2017 Status: F Source: ANAMOSA 10:00 PM [facility] REPOSITORY Order Comment: Comments: 2200 'TROP' Serial specimen #1, #2, #3, or #4: 2 TYPE CODE TESTS RESULT OUT OF RANGE REFERENCE UNITS LAB L501.4010 <0.06 ng/mL Normal < 0.02 TROPONIN-I Result Comment: TROPONIN-I EXPECTED VALUES <0.05 NEGATIVE 0.06 - 0.59 AT RISK OF [place] > OR = 0.60 SUGGEST [place] Performed By: #### L501.4010 #### [facility] [place], [address] BEDSIDE GLUCOSE Collected: 05/27/2017 Status: F Source: TALIB 9:09 PM [facility] REPOSITORY TYPE CODE TESTS RESULT OUT OF REFERENCE UNITS RANGE LAB L501.080 70-110 mg/dL High BEDSIDE GLU 122 Result Comment: MANAGEMENT OF PATIENT CARE PER NURSING PROTOCOL Performed By: #### L501.080 #### [facility] Point of Care [address] [place] [address] CHEST 1 VIEW Observed: 05/27/2017 Status: F Source: TALIB (PORTABLE) 8:08 PM [facility] REPOSITORY [facility] Imaging Services [address] [place] [address] Chest 1 View (Portable) MR#: [id number] Acct: [id number] Name: HEATH OTTO Rep #: [id number] : 1935 M 81 From: Roshan Burnett PCP: Salima Tuttle MD Status: REG ER Study: Chest 1 View (Portable) Date of Exam: 05/27/17 Exam# [id number] Ordering Dr: Jalen Mei DO STUDY: X-RAY CHEST REASON FOR EXAM: Male, 81 years old. Chest pain, shortness of breath TECHNIQUE: Single AP portable view of the chest. COMPARISON: 03/06/2016. FINDINGS: The lungs are clear and expanded. There is no demonstrated pleural abnormality. There is mild cardiac enlargement. Patient status post sternotomy. Normal mediastinum and jose antonio. Normal visualized pulmonary arteries. Normal visualized aortic arch and descending thoracic aorta. Normal visualized thoracic spine. Normal visualized ribs, clavicles, and shoulders. There is no demonstrated abnormality of the visualized soft tissue structures of the upper abdomen. RAD/Chest 1 View (Portable) IMPRESSION: No infiltrate. Stable cardiomegaly. Electronically Signed: Roshan Burnett DO at 20:43 EDT , Service support , CC: Salima Tuttle MD; Jalen Mei DO Field Observer: Signed CBC W/DIFF, AUTOMATED Collected: 05/27/2017 Status: F Source: TALIB 7:59 PM [facility] REPOSITORY TYPE CODE TESTS RESULT OUT OF RANGE REFERENCE UNITS LAB L100.1000 4.4-11.0 K/mm3 Normal WBC 6.1 LAB L100.1200 4.6-6.2 M/mm3 Low RBC 4.37 LAB L100.1300 13.0-16.5 g/dl Low HGB 12.8 LAB L100.1400 40-54 % Normal HCT 40.3 LAB L100.1500 80-94 fL Normal MCV 92.2 LAB L100.1600 27.0-32.0 pg Normal MCH 29.3 LAB L100.1700 32-36 g/gl Low MCHC 31.8 LAB L100.1810 11.6-14.6 % High RDW CV 15.8 LAB L100.1820 35.1-43.9 fl High RDW SD 52.9 LAB L100.1900 150-450 K/mm3 Normal PLT 337 LAB L100.2000 6.2-12.0 fl Normal MPV 10.6 LAB L100.2100 47-70 % High NEUT% 70.2 LAB L100.2200 19-41 % Low LY% 18.4 LAB L100.2300 0-10 % Normal MONO% 7.0 LAB L100.2400 0-5 % Normal EO% 3.4 LAB L100.2500 0-1 % Normal BASO% 0.5 LAB L100.2550 0.0-0.9 % Normal IM GRAN % 0.500 Result Comment: IG% - Immature Granulocytes (promyelocytes, myelocytes and metamyelocytes) > 1% indicates that a LEFT SHIFT is Present. LAB L100.2620 2.0-7.7 X10 3/uL Normal Absolute Neut 4.3 LAB L100.2720 0.83-4.51 X10 3/ul Normal Absolute Lymph 1.13 Performed By: #### L100.0100 #### [facility] [place], [address] PROTHROMBIN TIME W/INR Collected: 05/27/2017 Status: F Source: TALIB 7:59 PM [facility] REPOSITORY TYPE CODE TESTS RESULT OUT OF RANGE REFERENCE UNITS LAB L300.4150 11.7-14.9 SECONDS Normal PROTIME 14.8 LAB L300.4200 Normal INR 1.2 Performed By: #### L300.3900, L300.4310 #### [facility] [address] [place], [place], [address] PARTIAL THROMBOPLAST Collected: 05/27/2017 Status: F Source: TALIB TIME 7:59 PM [facility] REPOSITORY TYPE CODE TESTS RESULT OUT OF RANGE REFERENCE UNITS LAB L300.4310 24.1-36.2 Seconds Normal PTT 30.3 Performed By: #### L300.3900, L300.4310 #### [facility] [address] [place], [place], [address] BASIC METABOLIC Collected: 05/27/2017 Status: F Source: TALIB PROFILE (BMP) 7:59 PM [facility] REPOSITORY Order Comment: 'TROP' Serial specimen #1, #2, #3, or #4: 1 TYPE CODE TESTS RESULT OUT OF RANGE REFERENCE UNITS LAB L501.0100 74-106 mg/dL High GLU 112 Result Comment: Fasting Glucose result from 100 to 125 mg/dL suggests IMPAIRED HOMEOSTASIS per A.D.A. criteria. Please note revised GLUCOSE reference range effective 2017. LAB L501.1000 7-18 mg/dL High BUN 41 LAB L501.1100 0.70-1.30 mg/dL High CREAT,SERUM 2.65 Result Comment: The validity of the calculated GFR AND GFRAA in patients over 70 years has not been determined. Clinical correlation is essential. LAB L501.1110 >60 mL/min Low EST GFR 25 Result Comment: Non- GFR Calc LAB L501.1115 >60 mL/min Low EST GFR - AA 30 Result Comment: GFR Calc LAB L501.1255 ml/min Normal Estimated CRCL 20.79 LAB L501.1300 10-20 RATIO Normal BUN/CRE 15.5 LAB L501.2200 8.5-10 mg/dL Normal .1 CA 9.3 LAB L501.5300 136-14 mmol/L Normal 5 NA 142 LAB L501.5600 3.5-5. mmol/L Normal 1 K 4.7 LAB L501.5900 98-107 mmol/L High CL 109 LAB L501.6100 21.0-3 mmol/L Normal 2.0 CO2 26.0 LAB L501.6200 5-15 Normal GAP 7 Performed By: #### L500.2500, L501.4010 #### [facility] [address] [facility], [address] TROPONIN-I Collected: 05/27/2017 Status: F Source: ANAMOSA 7:59 PM [facility] REPOSITORY Order Comment: 'TROP' Serial specimen #1, #2, #3, or #4: 1 TYPE CODE TESTS RESULT OUT OF RANGE REFERENCE UNITS LAB L501.4010 <0.06 ng/mL Normal < 0.02 TROPONIN-I Result Comment: TROPONIN-I EXPECTED VALUES <0.05 NEGATIVE 0.06 - 0.59 AT RISK OF [place] > OR = 0.60 SUGGEST [place] Performed By: #### L500.2500, L501.4010 #### [facility] [address] [facility] [address] [place], [place], [address] HEMOGLOBIN A1C Collected: 04/06/2017 Status: F Source: ANAMOSA 9:53 AM [facility] REPOSITORY TYPE CODE TESTS RESULT OUT OF RANGE REFERENCE UNITS LAB L501.9985 4.2-6.3 % Normal HGB A1C 5.8 Performed By: #### L501.9985 #### [facility] [address] [facility], [address] BASIC METABOLIC Collected: 04/06/2017 Status: F Source: ANAMOSA PROFILE (BMP) 9:53 AM [facility] REPOSITORY TYPE CODE TESTS RESULT OUT OF RANGE REFERENCE UNITS LAB L501.0100 70-110 mg/dL Normal GLU 106 LAB L501.1000 7-18 mg/dL High BUN 33 LAB L501.1100 0.70-1.30 mg/dL High 2.24 CREAT,SERUM Result Comment: The validity of the calculated GFR AND GFRAA in patients over 70 years has not been determined. Clinical correlation is essential. LAB L501.1110 >60 mL/min Low EST GFR 30 Result Comment: Non- GFR Calc LAB L501.1115 >60 mL/min Low EST GFR - AA 36 Result Comment: GFR Calc LAB L501.1300 10-20 RATIO Normal BUN/CRE 14.7 LAB L501.2200 8.5-10.1 mg/dL CA Normal 9.8 LAB L501.5300 136-145 mmol/L NA Normal 142 LAB L501.5600 3.5-5.1 mmol/L K Normal 5.1 Result Comment: Slight Hemolysis, Result may be falsely increased. LAB L501.5900 98-107 mmol/L Normal CL 107 LAB L501.6100 21.0-32.0 mmol/L Normal CO2 25.0 LAB L501.6200 5-15 Normal GAP 10 Performed By: #### L500.2500, L500.3400, L500.4100 #### [facility] [address] [place], [address] LIVER PROFILE Collected: 04/06/2017 Status: F Source: ANAMOSA 9:53 AM [facility] REPOSITORY TYPE CODE TESTS RESULT OUT OF RANGE REFERENCE UNITS LAB L501.1500 6.4-8.2 g/dL Normal T PROT 7.1 LAB L501.1800 3.2-5.0 g/dL Normal ALB 4.0 LAB L501.1950 2.2-4.2 g/dL Normal GLOB 3.1 LAB L501.4100 15-37 U/L Low AST 13 Result Comment: Slight Hemolysis, Result may be falsely increased. LAB L501.4305 45-117 U/L Normal ALK P 56 LAB L501.4405 16-61 U/L Normal ALT 21 Result Comment: Please note revised ALT reference range effective 2017. LAB L501.4600 0.20-1.00 mg/dL High T BILI 1.30 LAB L501.4700 0.00-0.30 mg/dL Normal D BILI 0.21 Performed By: #### L500.2500, L500.3400, L500.4100 #### [facility] [address] [facility], [address] LIPID PROFILE Collected: 04/06/2017 Status: F Source: TALIB 9:53 AM [facility] REPOSITORY TYPE CODE TESTS RESULT OUT OF RANGE REFERENCE UNITS LAB L501.4900 200 mg/dL Normal CHOL 145 Result Comment: <200 mg/dL Desirable 200-240 mg/dL Borderline >240 mg/dL High Risk LAB L501.5000 mg/dL Normal TRIG 138 Result Comment: The drugs N-Acetylcysteine and Metamizole may falsely depress this assay. Serum Triglycerides Reference Interval Normal <150 mg/dL Borderline high 150 - 199 mg/dL High 200 - 499 mg/dL Very High > or = 500 mg/dL LAB L501.6400 mg/dL Low HDL 37 Result Comment: The drugs N-Acetylcysteine and Metamizole may falsely depress this assay. Reference Range HDL <40 mg/dL Low HDL Cholesterol HDL >or= 60 mg/dL High HDL Cholesterol LAB L501.6500 0-130 mg/dL Normal LDL 80 LAB L501.6600 5-40 mg/dL Normal VLDL 28 Performed By: #### L500.2500, L500.3400, L500.4100 #### [facility] [address] [place], [address] MICROALB:CREAT Collected: 04/06/2017 Status: F Source: TALIB RATIO,RANDOM UR 9:53 AM [facility] REPOSITORY TYPE CODE TESTS RESULT OUT OF RANGE REFERENCE UNITS LAB L501.1200 NO RANGE EST. mg/dL Normal UR CREAT 119.00 LAB L502.0500 NO RANGE EST. mg/L Normal 2660.0 MICROALBUMIN ,UR LAB L502.0600 <30 mg/g CRE mg/g CRE High 2235.3 MALB:CREAT Performed By: #### L502.0250 #### [facility] [address] [place], [address] ALLERGIES ALLERGIES DATE TYPE / NAME / CODE REACTION SEVERITY SOURCE CODE 12/29/2017 Drug rosuvastatin legs hurt Unknown [facility] Allergy/41 calcium/[id number] [facility]ly [facility] [id number]( (RXNORM) [facility]) Repository 12/29/2017 Drug Penicillins/R14081 Anaphylaxis Unknown [place] Allergy/41 0476(RXNORM) [facility]ly [facility] [id number]([facility]) Repository 12/29/2017 Drug Ivhcwlw-Gkf-Rqr body aches Unknown [place] Allergy/41 [facility] [id number]( Inhibitor/[id number] [facility]) 95(RXNORM) Repository 12/29/2017 Drug amlodipine/[id number] DIZZY [place] [facility] Allergy/41 672(RXNORM) Community [id number]([facility]) Repository ENCOUNTERS ENCOUNTERS ADMIT/DISCHARGE ACCOUNT NUMBER ADMITTING ENCOUNTER LOCATION SOURCE CLASS 03/29/2018 [id number] Ambulatory [facility] ding:[id number] Repository 02/18/2018 [id number] Ambulatory ABuilding:PM Formerly [facility] Repository 02/11/2018 [id number] Ambulatory [facility] ding:[id number] Repository 02/01/2018/02/02/20 [id number] Ambulatory BMSBuilding: [facility] 18 BMS.[facility] Repository 01/26/2018/01/27/20 [id number] Ambulatory BMSBuilding: [place] 18 BMS[facility] Repository 01/13/2018 [id number] [facility] [facility] Rep[facility] 01/12/2018 [id number] Ambulatory [facility] ding:POLAB3 Repository 12/29/2017/12/30/19 [id number] Ambulatory BMSBuilding: Talib 18 BMS.[facility] Repository 12/16/2017 [id number] Ambulatory [facility] ding:LAB Repository 12/09/2017/12/10/19 [id number] Ambulatory BMSBuilding: Talib 18 BMS.[facility] Repository 12/02/2017/12/03/19 [id number] Ambulatory BMSBuilding: Talib 18 BMS.[facility] Repository 11/27/2017 [id number] Ambulatory [facility] ding:MEDOUTP Repository 11/26/2017 [id number] Ambulatory [facility] ding:MEDOUTP Repository 11/25/2017 [id number] Ambulatory [facility] ding:MEDOUTP Repository 11/24/2017 [id number] Ambulatory [facility] ding:MEDOUTP Repository 11/23/2017 [id number] Ambulatory [facility] ding:MEDOUTP Repository 11/23/2017/11/24/19 [id number] Ambulatory BMSBuilding: Hope 18 BMS.[facility] Repository 11/17/2017 [id number] Ambulatory [facility] ding:LAB Repository 11/17/2017/11/18/19 [id number] Ambulatory BMSBuilding: Talib 18 BMS.[facility] Repository 11/02/2017 [id number] Ambulatory [facility] ding:MTRAD Repository 10/15/2017/10/16/19 [id number] Ambulatory BBuilding:OS Serg 18 DURm: Health 0001Bed: B Foundation Repository 10/03/2017 [id number] Ambulatory [facility] ding:CT Repository 09/24/2017/09/25/19 [id number] Ambulatory BBuilding:OS Serg 18 [facility]: Health 0001Bed: B Foundation Repository 09/17/2017/09/18/19 [id number] Ambulatory [address] ding:RAD Foundation Repository 08/14/2017/08/15/19 [id number] Emergency [address] ding:ED Repository 08/10/2017 [id number] Ambulatory [facility] ding:MTRAD Repository 08/04/2017/08/07/19 [id number] Richmondeletsantwan, Ambulatory Talib Talib 18 [facility] ding:NC1Ijam Repository : QE719Glz: 1 08/04/2017 [id number] Ru, Ambulatory BMSBuilding: Hope Cruzito BMS.[facility] Repository 08/04/2017 [id number] Ru, Ambulatory BMSBuilding: Hope Cruzito BMS.[facility] Repository 08/04/2017 [id number] Ru, Ambulatory BMSBuilding: Hope Cruzito BMS.CF.[facility] Repository 08/04/2017 [id number] Tereletsky, Ambulatory BMSBuilding: Talib Cruzito BMS.[facility] Repository 07/30/2017 [id number] Ambulatory [facility] ding:LABSPEC Repository 07/30/2017 [id number] Ambulatory [facility] ding:MTRAD Repository 07/21/2017/07/22/19 [id number] Ambulatory BMSBuilding: Hope 18 BMS.[facility] Repository 06/04/2017/06/05/19 [id number] Ambulatory BMSBuilding: Talib 18 BMS.[facility] Repository 05/27/2017/05/28/19 [id number] Emergency [address] ding:ED Repository 04/06/2017 [id number] Ambulatory [facility] ding:MFPLAB Repository PAYERS PAYERS ENCOUNTER GUARANTOR PAYER SUBSCRIBER SOURCE 03/29/2018 HEATH Lucio Primary HEATH Christineoster [id number] Insurance:HUMANA GRIMESDOB: Community [place] MEDICARE PPOPolicy [id number] Number: Repository [address]Mwv: 330 [id number] [phone] () Date:1586-90-20UH[address] [address]IH: 03/29/2018 Secondary NOT GIVENUNK Hope Insurance:SELF PAY [facility] Number: Effective Repository Date:2018-03-29 02/18/2018 HEATH GRIMESDOB: Primary HEATH GRIMESDOB: [employer](BHI) [id number] Insurance:HUMANA [id number] [facility] Number: [address] [place], [place] [id number] [place], [place] [address]Llw: (330) Date:2018-03-25 04659Xqx: () [id number] [phone] Name:O Box (HP)Tel: ([phone]) [phone], [place] 000-0000 (YX) [address]WP: 02/11/2018 HEATH Lucio Primary HEATH Lucio Hope [id number] Insurance:SUMMA CARE GRIMESDOB: Community [place] MEDICAREPolicy [id number] Number: Repository [address]Cso: 330 [id number] [phone] () Date:8447-94-57OI [address] [place] [address] 25489AH: 02/11/2018 Secondary NOT GIVENUNK Talib Insurance:SELF PAY [facility] Number: Effective Repository Date:2018-02-11 02/01/2018 HEATH Lucio Primary HEATH Lucio Hope [id number] Insurance:SUMMA CARE GRIMESDOB: Community [place] MEDICAREPolicy [id number] Number: Repository [address]33[address]Dlr: 330 [id number] [phone] () Date:9420-32-58YD [address] [place] [address] 37434GH: 02/01/2018 Secondary NOT GIVENUNK Hope Insurance:SELF PAY [facility] Number: Effective Repository Date:2018-02-01 01/26/2018 HEATH Lucio Primary HEATH Lucio Talib [id number] Insurance:SUMMA CARE GRIMESDOB: Community [place] MEDICAREPolicy [id number] Number: Repository 39[address]Wyj: 330 [id number] [phone] () Date:9853-66-69OG [address] [place] [address] 69266ZO: 01/26/2018 Secondary NOT GIVENUNK Hope Insurance:SELF PAY [facility] Number: Effective Repository Date:2018-01-26 01/13/2018 HEATH Lucio Primary HEATH Lucio Hope [id number] Insurance:SUMMA CARE GRIMESDOB: Community [employer] MEDICAREPolicy [id number], [place] Number: Repository [address]Vkw: (330 [id number] [phone] () Date:8124-51-03YI [address] [place] [address] 36011YH: 01/13/2018 Secondary NOT GIVENUNK Talib Insurance:SELF PAY [facility] Number: Effective Repository Date:2018-01-12 01/12/2018 HEATH Lucio Primary HEATH Lucio Hope [id number] Insurance:SUMMA CARE GRIMESDOB: Community [place] MEDICAREPolicy [id number] Number: Repository 213[address]Yce: 330 [id number] [phone] () Date:1814-17-85WB [address] [place] [address] 18510RD: 01/12/2018 Secondary NOT GIVENUNK Talib Insurance:SELF PAY [facility] Number: Effective Repository Date:2018-01-12 12/29/2017 HEATH L Primary HEATH Lucio Hope [id number] Insurance:SUMMA CARE GRIMESDOB: Community [employer] MEDICAREPolicy [id number], [place] Number: Repository [address]10[address]Cuq: 330 [id number] [phone] () Date:3509-64-01NH [address] [place] [address] 76117JC: 12/29/2017 Secondary NOT GIVENUNK Hope Insurance:SELF PAY [facility] Number: Effective Repository Date:2017-12-29 12/16/2017 HEATH L Primary HEATH Christineoster [id number] Insurance:SUMMA CARE GRIMESDOB: Community [employer] MEDICAREPolicy [id number], [place] Number: Repository [address]Dpr: (330 [id number] [phone] () Date:6373-55-10IE [address] [place] [address] 54001GZ: 12/16/2017 Secondary NOT GIVENUNK Hope Insurance:SELF PAY [facility] Number: Effective Repository Date:2017-12-16 12/09/2017 HEATH L Primary HEATH Lucio Talib [id number] Insurance:SUMMA CARE GRIMESDOB: Community [employer] MEDICAREPolicy [id number] Number: Repository [address]Fzy: (330 [id number] [phone] (HP) Date:2730-62-20YZ [address] [place] [address] 04349NF: 12/09/2017 Secondary NOT GIVENUNK Talib Insurance:SELF PAY [facility] Number: Effective Repository Date:2017-12-09 12/02/2017 HEATH L Primary HEATH Lucio [place] [id number] Insurance:SUMMA CARE GRIMESDOB: Community [employer] MEDICAREPolicy [id number] Number: Repository 26[address]Lux: (330 [id number] [phone] (HP) Date:9319-65-79HR [address] [place] [address] 32899DQ: 12/02/2017 Secondary NOT GIVENUNK Hope Insurance:SELF PAY [facility] Number: Effective Repository Date:2017-12-02 11/27/2017 HEATH L Primary HEATH Mayers [id number] Insurance:SUMMA CARE GRIMESDOB: Community [employer] MEDICAREPolicy [id number] Number: Repository 62285Zzm: 330 [id number] [phone] (HP) Date:5748-72-35LP [address] [place] [address] 85708VS: 11/27/2017 Secondary NOT GIVENUNK Talib Insurance:SELF PAY [facility] Number: Effective Repository Date:2017-11-23 11/26/2017 HEATH L Primary HEATH Mayers [id number] Insurance:SUMMA CARE GRIMESDOB: Community [employer] MEDICAREPolicy [id number] Number: Repository 574[address]Wkf: 330 [id number] [phone] (HP) Date:9771-43-77OX [address] [place] [address] 05848IT: 11/26/2017 Secondary NOT GIVENUNK Hope Insurance:SELF PAY [facility] Number: Effective Repository Date:2017-11-23 11/25/2017 HEATH Lucio Primary HEATH Mayers [id number] Insurance:SUMMA CARE GRIMESDOB: Community [employer] MEDICAREPolicy [id number] Number: Repository 4[address]Hht: 330 [id number] [phone] () Date:4367-66-59PP [address] [place] [address] 19281UV: 11/25/2017 Secondary NOT GIVENUNK Talib Insurance:SELF PAY [facility] Number: Effective Repository Date:2017-11-23 11/24/2017 HEATH Lucio Primary HEATH Mayers [id number] Insurance:SUMMA CARE GRIMESDOB: Community [employer] MEDICAREPolicy [id number] Number: Repository [address]Ewg: 330 [id number] [phone] () Date:3179-38-47FX [address], [place] [address]PM: 11/24/2017 Secondary NOT GIVENUNK Hope Insurance:SELF PAY [facility] Number: Effective Repository Date:2017-11-23 11/23/2017 HEATH Lucio Primary HEATH Mayers [id number] Insurance:SUMMA CARE GRIMESDOB: Community [employer] MEDICAREPolicy [id number] Number: Repository [address]Kzo: 330 [id number] [phone] () Date:6009-82-44AQ [address], [place] [address]HH: 11/23/2017 Secondary NOT GIVENUNK Talib Insurance:SELF PAY [facility] Number: Effective Repository Date:2017-11-23 11/23/2017 HEATH Lucio Primary HEATH Mayers [id number] Insurance:SUMMA CARE GRIMESDOB: Community [employer] MEDICAREPolicy [id number] [place] [address] Number: Repository [address]Mja: (330 [id number] [phone] (HP) Date:3873-51-01BF BOX [facility] [address]EM: 11/23/2017 Secondary NOT GIVENUNK Talib Insurance:SELF PAY [facility] Number: Effective Repository Date:2017-11-23 11/17/2017 HEATH Lucio Primary HEATH Mayers [id number] Insurance:SUMMA CARE GRIMESDOB: Community [place] MEDICAREPolicy [id number], [place] Number: Repository 83[address]Bjx: 330 [id number] [phone] (HP) Date:5475-43-49UB [address] [place] [address] 72065MS: 11/17/2017 Secondary NOT GIVENUNK Hope Insurance:SELF PAY [facility] Number: Effective Repository Date:2017-11-17 11/17/2017 HEATH Lucio Primary HEATH Mayers [id number] Insurance:SUMMA CARE GRIMESDOB: Community [employer] MEDICAREPolicy [id number], [place] Number: Repository [address]Nmh: 330 [id number] [phone] () Date:3071-73-71SO [address] [place] [address] 91943KP: 11/17/2017 Secondary NOT GIVENUNK Hope Insurance:SELF PAY [facility] Number: Effective Repository Date:2017-11-17 11/02/2017 HEATH Lucio Primary HEATH Mayers [id number] Insurance:SUMMA CARE GRIMESDOB: Community [employer] MEDICAREPolicy [id number], [place] Number: Repository [address]Fky: (330 [id number] [phone] (HP) Date:6103-84-11YY [address] [place] [address] 81023XE: 11/02/2017 Secondary NOT GIVENUNK Hope Insurance:SELF PAY [facility] Number: Effective Repository Date:2017-11-02 10/15/2017 HEATH GRIMESDOB: Primary HEATH GRIMESDOB: [facility] [id number] Insurance:[facility] [id number] Foundation [employer] MEDICARE HMOPolicy 2 [place] Repository [place] Number: Ann[place]ARCEL[place] [address]Gtj: (330 [id number] 25[address]Gjy: (HP) Date:2017-10-12 [id number] (HP)Tel: (000) Name:[address] 000-0000 (WP) [place], [place] [address]FH: 10/03/2017 HEATH Lucio Primary HEATH Lucio Talib [id number] Insurance:[facility] GRIMESDOB: Community [place] MEDICAREPolicy [id number], [place] Number: Repository [address]Jsx: (330) [id number] [phone] (HP) Date:6243-02-09ZV [address] [place], [place] [address]UG: 10/03/2017 Secondary NOT GIVENUNK Talib Insurance:SELF PAY [facility] Number: Effective Repository Date:2017-09-18 09/24/2017 HEATH GRIMESDOB: Primary HEATH GRIMESDOB: [facility] [id number] Insurance:[facility] [id number] Foundation [employer] MEDICARE HMOPolicy 2 [place] Repository [place], [place] Number: [place] [address]Oji: (330) [id number] 956[address]Qbe: (HP) Date:2017-09-18 [id number] (HP)Tel: (000) Name:[address] 000-0000 (WP) HenryLanaPRETTY [place], [place] [address]EF: 09/17/2017 HEATH GRIMESDOB: Primary HEATH GRIMESDOB: [facility] [id number] Insurance:[facility] [id number] Foundation [place] MEDICARE HMOPolicy 2 [place] Repository [place] Number: [place], [place] [address]Ucq: 330 [id number] [address]Iyu: (HP) Date:2017-09-11 [id number] 0255-87-50Apbm ()Tel: (000) Name:O Silvestre 000-0000 () [address] [place] [address] 21296FC: 08/14/2017 HEATH L Primary HEATH Lucio Talib [id number] [facility] Community [place] MEDICAREPolicy [id number], [place] Number: Repository [address]Znl: 330 [id number] [phone] (HP) Date:5817-45-09KR [address] [address]RI: 08/14/2017 Secondary NOT GIVENUNK Talib Insurance:SELF PAY [facility] Number: Effective Repository Date:2017-08-14 08/10/2017 HEATH L Primary HEATH L Hope [id number] Insurance[facility] IMENYOB: Community [place] MEDICAREPolicy [id number], [place] Number: Repository [address]Jjt: 330 [id number] [phone] (HP) Date:9939-86-97UT [address] [address]CM: 08/10/2017 Secondary NOT GIVENUNK Talib Insurance:SELF PAY [facility] Number: Effective Repository Date:2017-08-10 08/04/2017 HEATH L Primary HEATH L Talib [id number] Insurance[facility]: Community [place] MEDICAREPolicy [id number], [place] Number: Repository [address]Sqd: 330 [id number] [phone] (HP) Date:0780-11-72EW [address] [address]AI: 08/04/2017 Secondary NOT GIVENUNK Talib Insurance:SELF PAY [facility] Number: Effective Repository Date:2017-08-04 08/04/2017 HEATH Lucio Primary HEATH Lucio Hope [id number] Insurance:SUMMA CARE GRIMESDOB: Community [employer] MEDICAREPolicy [id number], [place] Number: Repository [address]Cop: 330 [id number] [phone] () Date:0202-03-64IQ [address] [place] [address] 09354XP: 08/04/2017 Secondary NOT GIVENUNK Talib Insurance:SELF PAY [facility] Number: Effective Repository Date:2017-08-04 08/04/2017 HEATH Lucio Primary HEATH Lucio Hope [id number] Insurance:SUMMA CARE GRIMESDOB: Community [employer] MEDICAREPolicy [id number] Number: Repository [address]Tpb: 330 [id number] [phone] () Date:8576-36-17MB [address] [place] [address] 15306JT: 08/04/2017 Secondary NOT GIVENUNK Talib Insurance:SELF PAY [facility] Number: Effective Repository Date:2017-08-04 08/04/2017 HEATH Lucio Primary HEATH Mayers [id number] Insurance:SUMMA CARE GRIMESDOB: Community [employer] MEDICAREPolicy [id number], [place] Number: Repository [address]Hqf: (330 [id number] [phone] () Date:6311-13-27IS [address] [place] [address] 23617BD: 08/04/2017 Secondary NOT GIVENUNK Hope Insurance:SELF PAY [facility] Number: Effective Repository Date:2017-08-04 08/04/2017 HEATH Lucio Primary HEATH Christineoster [id number] Insurance[facility] GRIMESDOB: Community [employer] MEDICAREPolicy [id number] Number: Repository [address]Doi: (330 [id number] [phone] (HP) Date:0776-66-72XG [address] [place] [address] 49833GL: 08/04/2017 Secondary NOT GIVENUNK Talib Insurance:SELF PAY [facility] Number: Effective Repository Date:2017-08-04 07/30/2017 HEATH Lucio Primary HEATH Lucio Hope [id number] Insurance:SUMMA CARE GRIMESDOB: Community [employer] MEDICAREPolic [id number], [place] Number: Repository [address]Pos: 330 [id number] [phone] () Date:4153-01-69AX [address] [place] [address] 59327QR: 07/30/2017 Secondary NOT GIVENUNK Hope Insurance:SELF PAY [facility] Number: Effective Repository Date:2017-07-30 07/30/2017 HEATH L Primary HEATH Lucio Talib [id number] Insurance:SUMMA CARE GRIMESDOB: Community [place] MEDICAREPolicy [id number], [place] Number: Repository [address]Nge: 330 [id number] [phone] () Date:3459-98-11KX [address] [place] [address] 64857QH: 07/30/2017 Secondary NOT GIVENUNK Talib Insurance:SELF PAY [facility] Number: Effective Repository Date:2017-07-30 07/21/2017 HEATH L Primary HEATH Lucio Hope [id number] Insurance:SUMMA CARE GRIMESDOB: Community [place] MEDICAREPolic [id number], [place] Number: Repository [address]Zac: 330 [id number] [phone] (HP) Date:5239-91-58YQ [address] [place] [address] 26769LB: 07/21/2017 Secondary NOT GIVENUNK Talib Insurance:SELF PAY [facility] Number: Effective Repository Date:2017-07-21 06/04/2017 HEATH L Primary HEATH Mayers [id number] Insurance[facility] GRIMESDOB: Community [place] MEDICAREPolicy [id number], [place] Number: Repository [address]Kmp: (330) [id number] [phone] (HP) Date:4725-95-72VN [address]CTARNULFOcanaan, [place] [address]YF: 06/04/2017 Secondary NOT GIVENUNK Talib Insurance:SELF PAY [facility] Number: Effective Repository Date:2017-02-13 05/27/2017 HEATH Lucio Primary HEATH Mayers [id number] Insurance[facility] GRIMESDOB: Community [place] MEDICAREPolicy [id number], [place] Number: Repository [address]Qac: 330 [id number] [phone] (HP) Date:0991-85-20SK [address] [place] [address] 41381RT: 05/27/2017 Secondary NOT GIVENUNK Talib Insurance:SELF PAY [facility] Number: Effective Repository Date:2017-05-27 04/06/2017 Heath Lucio Primary Heath Mayers [id number] Insurance:SUMMA CARE GrimesDOB: Community [facility] MEDICAREPolicy [id number] Number: Repository [address]Odc: (330 [id number] [phone] (HP) Date:9171-69-99PE [address] [place] [address] 18131ME: 04/06/2017 Secondary NOT GIVENUNK Hope Insurance:SELF PAY [facility] Number: Effective Repository Date:2017-04-06
== END ==
PROVIDERS: Family Provider Family Medicine; PCP Family Medicine; Visit Provider Family Medicine
DX: E11.9 Type 2 diabetes mellitus without complications (principal)
CPT/HCPCS: 36415; 80061; 80076; 83036

== ENCOUNTER → 2018-04-15 10:25 | Outpatient (CLI) | payer MEDICARE, SELFPAY ==
[2018-01-26 08:59] VITALS: BMI 28.5
[2018-04-15 13:55] LABS: Albumin, Serum 4.2 g/dL (3.2-5.0); BUN 50 mg/dL (7-18); Calcium,Total 9.6 mg/dL (8.5-10.1); Chloride 103 mmol/L (98-107); Creatinine, Serum 3.34 mg/dL (0.70-1.30); EST Glomerular Filtration Rate 19 mL/min (>60); Est Glom Filt Rate - Afr Amer 23 mL/min (>60); Glucose 164 mg/dL (74-106); Phosphorus 4.8 mg/dL (2.5-4.9); Potassium 4.2 mmol/L (3.5-5.1); Sodium Level 144 mmol/L (136-145)
== END ==
PROVIDERS: Family Provider Family Medicine; PCP Family Medicine; Visit Provider Internal Medicine Nephrology
DX: N18.4 Chronic kidney disease, stage 4 (severe) (principal)
CPT/HCPCS: 36415; 80069

== ENCOUNTER → 2018-05-07 10:25 | Outpatient (CLI) | payer MEDICARE, SELFPAY ==
[2018-01-26 08:59] VITALS: BMI 28.5
[2018-05-07 11:34] LABS: Anion Gap 9 (5-15); BUN 36 mg/dL (7-18); BUN/Creat Ratio 12.9 RATIO (10-20); Chloride 106 mmol/L (98-107); Creatinine, Serum 2.79 mg/dL (0.70-1.30); EST Glomerular Filtration Rate 23 mL/min (>60); Est Glom Filt Rate - Afr Amer 28 mL/min (>60); Glucose 152 mg/dL (74-106); Potassium 4.7 mmol/L (3.5-5.1); Sodium Level 141 mmol/L (136-145)
== END ==
PROVIDERS: Family Provider Family Medicine; PCP Family Medicine; Referring Provider Internal Medicine Nephrology; Visit Provider Internal Medicine Nephrology
DX: N18.4 Chronic kidney disease, stage 4 (severe) (principal)
CPT/HCPCS: 36415; 80048

== ENCOUNTER → 2018-06-04 09:22 | Outpatient (CLI) | payer MEDICARE, SELFPAY ==
[2018-05-26 09:34] VITALS: BMI 28.7
--- NOTE | 2018-06-04 09:25 | CDU_ITS ---
Reason For Study: Rt Carotid Bruit Rt. Velocities/BP Lt. Velocities/BP Prox CCA 84/13 cm/sec. Prox CCA 90/20 cm/sec. Mid CCA 74/13 cm/sec. Mid CCA 89/18 cm/sec. Dist CCA 57/16 cm/sec. Dist CCA 88/20 cm/sec. Prox ICA 99/21 cm/sec. Prox ICA 113/29 cm/sec. Mid ICA 107/30 cm/sec. Mid ICA 109/24 cm/sec. Dist ICA 93/23 cm/sec. Dist ICA 93/24 cm/sec. Rt. ICA/CCA = 1.45. Lt. ICA/CCA = 1.27. Prox ECA 516/29 cm/sec. Prox ECA 453/31 cm/sec. Rt. Vert. 37/5 cm/sec. Lt. Vert. 23/8 cm/sec. Right Extracranial There is heterogeneous, irregular atherosclerotic plaque noted in the right common carotid artery. There is heterogeneous, irregular atherosclerotic plaque noted in the right internal carotid artery. The atherosclerotic plaque causes acoustic shadowing. There is heterogeneous, irregular atherosclerotic plaque noted in the right external carotid artery. Antegrade flow is noted in the right vertebral artery. Left Extracranial There is heterogeneous, irregular atherosclerotic plaque noted in the left common carotid artery. There is heterogeneous, irregular atherosclerotic plaque noted in the left internal carotid artery. The atherosclerotic plaque causes acoustic shadowing. There is heterogeneous, irregular atherosclerotic plaque noted in the left external carotid artery. Antegrade flow is noted in the left vertebral artery. Procedure Carotid Duplex [id number]. Exam performed in department. Interpretation Summary Mild (<50%) stenosis right extracranial internal carotid. Mild (<50%) stenosis left extracranial internal carotid. Flow within the vertebral arteries is antegrade bilaterally. Ordering Physician: Clari Jameson Referring Physician: Salima Tuttle Performed By: Shelbie Sol, RDCS, RVT
== END ==
PROVIDERS: Family Provider Family Medicine; PCP Family Medicine; Referring Provider Physician Assistant Medical; Visit Provider Physician Assistant Medical
DX: R09.89 Other specified symptoms and signs involving the circulatory and respiratory systems (principal)
CPT/HCPCS: 93880

== ENCOUNTER → 2018-06-28 | Outpatient (CLI) | payer MEDICARE, SELFPAY ==
[2018-05-26 09:34] VITALS: BMI 28.7
[2018-06-28 08:43] LABS: Albumin, Serum 4.1 g/dL (3.2-5.0); BUN 46 mg/dL (7-18); BUN/Creat Ratio 15.4 RATIO (10-20); Calcium,Total 9.5 mg/dL (8.5-10.1); Chloride 106 mmol/L (98-107); Creatinine, Serum 2.98 mg/dL (0.70-1.30); EST Glomerular Filtration Rate 22 mL/min (>60); Est Glom Filt Rate - Afr Amer 26 mL/min (>60); Glucose 203 mg/dL (74-106); Phosphorus 3.9 mg/dL (2.5-4.9); Potassium 4.4 mmol/L (3.5-5.1); Sodium Level 142 mmol/L (136-145)
== END | disposition home or self-care (01) ==
PROVIDERS: Family Provider Family Medicine; PCP Family Medicine; Referring Provider Internal Medicine Nephrology; Visit Provider Internal Medicine Nephrology
DX: N18.4 Chronic kidney disease, stage 4 (severe) (principal)
CPT/HCPCS: 36415; 80069

== ENCOUNTER 2018-07-21 17:42 | Inpatient (IN) | payer MEDICARE, SELFPAY ==
[2018-05-26 09:34] VITALS: BMI 28.7
[2018-07-21] VITALS (9 sets, daily range): BP systolic 99–136; BP diastolic 62–91; PULSE 69–73; RESP 15–25; TEMP 36.3–36.7; O2SAT 97–99; BMI 32.3; BMI 29.5; BMI 32.4
--- NOTE | 2018-07-21 17:53 | EKG12_ITS ---
Test Reason : CP Blood Pressure : / mmHG Vent. Rate : 070 BPM Atrial Rate : 070 BPM P-R Int : 200 ms QRS Dur : 116 ms QT Int : 436 ms P-R-T Axes : 072 -37 160 degrees QTc Int : 470 ms Atrial-paced rhythm Left axis deviation Nonspecific ST-T wave changes Abnormal ECG Confirmed by ANUPAM PANTOJA ([id number]), manager editorial OZZIE BARNARD ([id number]) on 07/26/2018 2:49:34 PM Referred By: Leon Armas Confirmed By:MARIANO PANTOJA
--- NOTE | 2018-07-21 17:53 | RAD_ITS ---
STUDY: X-RAY CHEST REASON FOR EXAM: Male, 83 years old. Chest pain TECHNIQUE: Frontal view of the chest COMPARISON: X-ray chest November 02, 2017 FINDINGS: Left chest pacemaker is present. Post CABG changes are present. There is mild left midlung zone airspace disease. There are no pleural effusions. There is no pneumothorax. The heart is enlarged. The visualized osseous structures are within normal limits. RAD/Chest 1 View (Portable) IMPRESSION: Mild left midlung zone airspace disease. Cardiomegaly. Electronically Signed: Anil Hills, at 18:13 EDT Tel , Service support ,
[2018-07-21 18:56] LABS: Absolute Lymphocyte Count 0.38 X10^3/ul (0.83-4.51); Absolute Neutrophil Count 6.2 X10^3/uL (2.0-7.7); Basophil# 0.02 X10^3/uL; Basophil% 0.3 % (0-1); Differential Indicated SCAN CRITERIA MET; Eosinophil# 0.02 X10^3/uL; Eosinophils% 0.3 % (0-5); Hematocrit 36.6 % (40-54); Hemoglobin 11.7 g/dl (13.0-16.5); Lymphocyte # 0.38 X10^3/ul (4.0); Lymphocyte % 5.3 % (19-41); Mean Corpuscular Hgb 28.5 pg (27.0-32.0); Mean Corpuscular Volume 89.3 fL (80-94); Mean Platelet Vol. 10.6 fl (6.2-12.0); Neutrophil # 6.16 X10^3/uL (2.7-7.7); Neutrophil % 86.4 % (47-70); POSITIVE COUNT NO; POSITIVE DIFFERENTIAL YES; POSITIVE MORPHOLOGY YES; Platelet Count 358 K/mm3 (150-450); RBC Distribution Width CV 16.5 % (11.6-14.6); White Blood Count 7.1 K/mm3 (4.4-11.0)
[2018-07-21 19:51] LABS: Differential Comment SCANNED
[2018-07-21 20:04] LABS: Anion Gap 6 (5-15); BUN 71 mg/dL (7-18); BUN/Creat Ratio 26.4 RATIO (10-20); Calcium,Total 9.2 mg/dL (8.5-10.1); Chloride 107 mmol/L (98-107); Creatinine, Serum 2.69 mg/dL (0.70-1.30); EST Glomerular Filtration Rate 24 mL/min (>60); Est Glom Filt Rate - Afr Amer 29 mL/min (>60); Estimated Creatinine Clearance 17.04 ml/min; Glucose 210 mg/dL (74-106); Potassium 4.8 mmol/L (3.5-5.1); Sodium Level 140 mmol/L (136-145)
--- NOTE | 2018-07-21 20:18 | ED.RN ---
lab called with critical lab results trop level 2.47. Dr. Coreas made aware. no new orders at this time
[2018-07-21 20:26] LABS: BNP,B-Type NATRIURETIC PEPTIDE 1727.2 pg/mL (0-100)
--- NOTE | 2018-07-21 20:37 | ED.DCSUM_ITS ---
- ER Visit Summary Date of Service: 07/21/18 Chief Complaint: [] History of Present Illness: The patient is a 83 M [chest pain and shortness of breath resents the emergency department shortness for about 3 weeks. Patient had severe chest pain yesterday 2 episodes. Patient states that with the first chest pain episode he took 3 nitro that eventually resolved his pain and then later the pain came back he had to take more nitro. Patient was very diaphoretic with it. Patient denies any nausea or vomiting associated with it he describes it as a hard ache. Patient states that reminded him of his last heart attack. Patient does have a history of diabetes, hypertension, high cholesterol, coronary artery disease. Patient had a one-vessel CABG about 7 years ago but since then has had multiple stents. Patient denies recent travel or surgery.] Physical Examination: [HEENT-PERRLA, EOMI. Cranial nerves II through XII grossly intact. TMs clear. Mucous membranes moist. No adenopathy. Cardiovascular-regular rate and rhythm without murmur or ectopy Lungs-clear to auscultation, chest wall stable without crepitus or subcu emphysema Abdomen-normoactive bowel sounds, soft, nontender, no rebound or rigidity, no peritoneal signs. Extremities-intact ?4, normal range of motion, normal pulses, atraumatic] Test Results: [EKG obtained arrival showed atrially paced rhythm with a ventricular rate of [address] changes noted. Patient had a CBC with differential 7. BNP was 1727. Chest x-ray showed a mild left mid lung disease and some cardiomegaly.] Emergency Department Course and Treatment: [Patient was started on Lovenox 80 mg subcu. Case was discussed with Dr. David Fagan who is the patient's dough mixing machine operator and will see patient in the morning. Patient will be admitted to hospitalist.] Treatment Plan: [Admit for likely heart catheterization tomorrow.] Disposition: [Admit] Impression: [Non-ST elevation NM Dyspnea Chronic kidney disease] This note was generated with [employer].comation software. It may contain incorrect words, spelling, and punctuation that were not noted in review of the chart prior to signing ED Disposition - Plan for ED Patient: Referrals: Salima Tuttle MD [Primary Care Provider] -
[2018-07-21] MEDS: Enoxaparin 80 MG/0.8 ML Syringe SC (20:38)
--- NOTE | 2018-07-21 20:57 | HP.PCM_ITS ---
History of Present Illness Date of Admission: 07/21/18 Chief Complaint: CHEST PAIN The patient is a 83 year old M with a significant history of chronic diastolic heart failure; COPD who presented to the emergency department with a 2-day history of chest pain. He describes his chest pain as heaviness. His chest pain was persistent and he could go as high as a 10 out of 10. On the day of presentation he was given nitroglycerin that helped with his chest pain. Associated with his symptoms is progressively worsening shortness of breath and fatigue. 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 Cotto; 06/25/05, Sternal Dehiscence strnal rewiring & debridement Medical History: Medical History (Last Reviewed 07/22/18 @ 04:09 by Leon Armas MD) Ischemic cardiomyopathy (Chronic) I25.5 Right bundle branch block (Chronic) I45.10 Complete AV block, acquired (Chronic) I44.2 Old myocardial infarction (Chronic) I25.2 HTN (hypertension) (Chronic) I10 HLD (hyperlipidemia) (Chronic) E78.5 Coronary atherosclerosis of [place] coronary artery (Chronic) I25.10 Cardiac pacemaker (Chronic) Z95.0 12/14 Implantable Loop Recorder; 02/12/09 Removal of Loop Recorder; PPM Implant 05/2014 NSTEMI (non-ST elevated myocardial infarction) (Resolved) I21.4 Allergies Penicillins Allergy (Verified 07/21/18 17:44) Anaphylaxis rosuvastatin calcium [From Crestor] Allergy (Verified 07/21/18 17:44) legs hurt Kshywuv-Zpw-Svm Reductase Inhibitor Allergy (Verified 07/21/18 17:44) body aches amlodipine [From Norvasc] Adverse Reaction (Intermediate, Verified 07/21/18 17:44) dizzy Home Medications: Ambulatory Orders Medication Instructions Recorded Folic Acid 5 mg PO QHS 03/12/14 Aspirin [Aspirin, Baby] 81 mg PO QHS 04/14/14 Multivitamins,Therapeutic 1 tab PO QHS 04/14/14 [Multivitamin] Ubidecarenone [Q-Sorb Co Q-10] 100 mg PO QHS 02/25/16 nitroglycerin 0.4 mg sublingual 0.4 mg SUBLINGUAL Q5M PRN #25 tab 06/05/17 tablet clopidogrel 75 mg tablet 75 mg PO QHS #90 tab 09/17/17 tamsulosin 0.4 mg capsule 0.4 mg PO DAILY 12/02/17 furosemide 40 mg tablet 40 mg PO DAILY tab 01/26/18 carvedilol 3.125 mg tablet 3.125 mg PO BID #60 tab 03/24/18 Hydrocodone/Acetaminophen 1 tab PO BID PRN PRN 07/21/18 [Hydrocodone-Acetamin 5-325 mg] Surgical History: Surgical History (Last Reviewed 07/22/18 @ 04:09 by Leon Armas MD) S/P PTCA (percutaneous transluminal coronary angioplasty) (Chronic) Z98.61 S/P CABG x 2 (Chronic) Z95.1 CABG with RUSH to LAD, SVG to Cx 06/17/05 Dr. Cotto; 06/25/05, Sternal Dehiscence strnal rewiring & debridement History of appendectomy Z90.49 History of back surgery Z98.890 History of tonsillectomy and adenoidectomy Z98.890 Surgical History: cholecystectomy, and PCI to LMA graft Smoking Status: Former smoker - *Family History Paternal Family History: Family History (Last Reviewed 07/22/18 @ 04:09 by Leon Armas MD) Father Myocardial infarction Hypertension Heart disease Mother Hypertension Emphysema of lung FH: brain aneurysm Daughter Afib History Items: Heart Disease Maternal Family History: Family History (Last Reviewed 07/22/18 @ 04:09 by Leon Armas MD) Father Myocardial infarction Hypertension Heart disease Mother Hypertension Emphysema of lung FH: brain aneurysm Daughter Afib History Items: No pertinent history Review of Systems Constitutional: Denies: Chills, Fever, Weight Change HEENT: Denies: Head Aches, Sinus Congestion, Sinus Drainage Cardiovascular: Reports: Chest Pain. Denies: Palpitations Respiratory: Reports: Cough, Shortness of Breath, Sputum production. Denies: Shortness of breath at rest Gastrointestinal: Denies: Abdominal Pain, Nausea, Vomiting Genitourinary: Denies: Dysuria Musculoskeletal: Denies: Joint Pain, Joint Tenderness Skin: Denies: Rash, Wounds Neurological: Denies: Numbness, Tingling, Focal weakness Psychiatric: Denies: Anxiety, Depression, Homicidal Ideations, Suicidal Ideations Hematologic/ Lymphatic: Denies: Easy Bruising, Easy Bleeding VTE Information - Inpt Only VTE Present on Admission: No VTE Mechan Device Prophylaxis: None VTE Pharm Prophylaxis ordered?: No Reason prophylaxis not ordered:: Treatment Not Indicated - lovenex therapeutic dose for NSTEMI - Physical Exam General: Alert, Oriented x3, Cooperative HEENT: Atraumatic, PERRLA, EOMI, Normocephalic Neck: Supple, No JVD, Negative Carotid Bruits Lungs: Diminished Cardiovascular: Regular rate, No murmurs Abdomen: Bowel Sounds Present, Soft, Non Tender Extremities: No edema, Capillary Refill Less than 3 Seconds Skin: No rashes, No breakdown Musculoskeletal: No Tenderness to Palpation of Joints or Extremities Neurological: Cranial nerves II-XII grossly intact Psych/Mental Status: Normal Affect, Appropriate Vital Signs Temp Pulse Resp BP Pulse Ox 98.0 F 72 19 H 99/70 99 07/21/18 20:22 07/21/18 20:54 07/21/18 20:54 07/21/18 20:54 07/21/18 20:54 Oxygen Flow Rate (L/min) 2 Oxygen Delivery Method Nasal Cannula Weight: 82.9 kg Body Mass Index (BMI) 32.3 Laboratory Tests Past 24 Hrs 07/21/18 07/21/18 07/21/18 18:30 18:30 18:30 WBC 7.1 RBC 4.10 L Hgb 11.7 L Hct 36.6 L MCV 89.3 MCH 28.5 MCHC 32.0 RDW 16.5 H RDW Differential 54.0 H Plt Count 358 MPV 10.6 Immature Gran % (Auto) 0.700 Neut % (Auto) 86.4 H Lymph % (Auto) 5.3 L [place] % (Auto) 7.0 Eos % (Auto) 0.3 Baso % (Auto) 0.3 Absolute Neuts (auto) 6.2 Absolute Lymphs (auto) 0.38 L Total Counted Not Reportable Differential Comment SCANNED Sodium 140 Potassium 4.8 Chloride 107 Carbon Dioxide 27.0 Anion Gap 6 BUN 71 H Creatinine 2.69 H Estim Creat Clear Calc 17.04 Est GFR (MDRD) Af Amer 29 L Est GFR (MDRD) Non-Af 24 L BUN/Creatinine Ratio 26.4 H Glucose 210 H Calcium 9.2 Troponin I 2.470 H* B-Natriuretic Peptide 1727.2 H Assessment/Plan All Active Problems (Last Reviewed 01/26/18 @ 09:09 by David Fagan MD) Acute on chronic systolic CHF (congestive heart failure) (Acute) Radiculitis of leg (Acute) Abdominal pain (Ruled-out) NSTEMI (non-ST elevated myocardial infarction) (Resolved) Pneumonia (Resolved) Unstable angina (Resolved) The patient is a 83 year old M with a significant history of chronic diastolic heart failure; COPD who presented to the emergency department with a 2-day history of chest pain; shortness of breath and with elevated troponin; elevated BNP and radiographic evidence of airspace disease. NSTEMI At the ED patient troponin was elevated Cardiology was consulted and Lovenox given. Continue Lovenox. Trend troponin Continue home aspirin and Plavix. Continue home nitroglycerin as needed Cardiology consulted CHF exacerbation (reduced EFT) Heart cath on 03/07/2016 showed reduced ejection fraction of approximately 30%. On presentation his BNP was 1,727.2 CXR showed airspace disease At home patient is on Lasix 40 mg p.o. daily. On admission his BUN was 71 which is about doubled his BUN about a month ago. Lasix 40 mg IV x1 given assess for further needs of diuretics. Coreg continued Trend BMP DVT Prophylaxis Not indicated since patient is on therapeutic lovenox. Code Visit OBSV E&M: 31839 Initial observation care L3
[2018-07-22] VITALS (23 sets, daily range): BP systolic 117–161; BP diastolic 47–85; PULSE 70–88; RESP 14–27; TEMP 36.4–37.1; O2SAT 93–99
--- NOTE | 2018-07-22 01:10 | EKG12_ITS ---
Test Reason : CP Blood Pressure : / mmHG Vent. Rate : 070 BPM Atrial Rate : 070 BPM P-R Int : 198 ms QRS Dur : 102 ms QT Int : 436 ms P-R-T Axes : 046 -29 157 degrees QTc Int : 470 ms Atrial-paced rhythm ST & T wave abnormality, consider lateral ischemia Prolonged QT Abnormal ECG When compared with ECG of 27-MAY-2017 19:56, Electronic atrial pacemaker has replaced Electronic ventricular pacemaker Confirmed by ANUPAM PANTOJA ([id number]), acquisitions editor OZZIE BARNARD ([id number] on 07/26/2018 4:44:44 PM Referred By: Leon Armas Confirmed By:MARIANO PANTOJA
[2018-07-22] MEDS: 0.9% NaCl Peripheral Flush Adult/Peds IV ×2 (01:39→11:25)
[2018-07-22] MEDS: Furosemide 40 MG/4 ML Vial IV (01:39)
[2018-07-22 05:32] LABS: Anion Gap 8 (5-15); BUN 71 mg/dL (7-18); BUN/Creat Ratio 26.7 RATIO (10-20); Chloride 107 mmol/L (98-107); Cholesterol 130 mg/dL (200); Creatinine, Serum 2.66 mg/dL (0.70-1.30); EST Glomerular Filtration Rate 25 mL/min (>60); Est Glom Filt Rate - Afr Amer 30 mL/min (>60); Estimated Creatinine Clearance 17.93 ml/min; Glucose 189 mg/dL (74-106); High Density Lipoprotein 36 mg/dL; Potassium 4.7 mmol/L (3.5-5.1); Sodium Level 142 mmol/L (136-145); Triglycerides 123 mg/dL; Very Low Density Lipoprotein 25 mg/dL (5-40)
--- NOTE | 2018-07-22 06:36 | PCM.CONS.C ---
Reason for Consult Date of Consultation: 07/22/18 Reason for Consultation: Chest pain and shortness of breath History of Present Illness: JOSIAS GUERRA, is a 82 M who presented to the emergency room yesterday complaining of shortness of breath as well as chest discomfort described as an ache. He said it reminded him of his previous heart attack he did take sublingual nitroglycerin with no improvement and therefore presented to the emergency room. In the emergency room he was evaluated and noted to have abnormal cardiac troponin enzyme. Cardiology was called for further evaluation. He has a history of coronary artery disease with bypass surgery in 2005. He had an RUSH to the LAD, SVG to the circumflex. Heart catheterization in 2016 demonstrated widely patent stent in the proximal left main and proximal circumflex, 80% stenosis in the mid LAD, patent previously placed stent in the proximal circumflex, patent stent in the obtuse marginal, patent RUSH to the LAD. His right coronary artery did not have any significant stenosis. 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 At this particular time he says that he has been doing better. He denies any worsening in his dizziness. He does have a cough which is chronic. Past Medical History Allergies/Adverse Reactions: Allergies Penicillins Allergy (Verified 07/21/18 17:44) Anaphylaxis rosuvastatin calcium [From Crestor] Allergy (Verified 07/21/18 17:44) legs hurt Pihxrys-Qmt-Cel Reductase Inhibitor Allergy (Verified 07/21/18 17:44) body aches amlodipine [From Norvasc] Adverse Reaction (Intermediate, Verified 07/21/18 17:44) dizzy Home Medications: Ambulatory Orders Medication Instructions Recorded Folic Acid 5 mg PO QHS 03/12/14 Aspirin [Aspirin, Baby] 81 mg PO QHS 04/14/14 Multivitamins,Therapeutic 1 tab PO QHS 04/14/14 [Multivitamin] Ubidecarenone [Q-Sorb Co Q-10] 100 mg PO QHS 02/25/16 nitroglycerin 0.4 mg sublingual 0.4 mg SUBLINGUAL Q5M PRN #25 tab 06/05/17 tablet clopidogrel 75 mg tablet 75 mg PO QHS #90 tab 09/17/17 tamsulosin 0.4 mg capsule 0.4 mg PO DAILY 12/02/17 furosemide 40 mg tablet 40 mg PO DAILY tab 11/20/18 carvedilol 3.125 mg tablet 3.125 mg PO BID #60 tab 03/24/18 Hydrocodone/Acetaminophen 1 tab PO BID PRN PRN 07/21/18 [Hydrocodone-Acetamin 5-325 mg] Past Medical History (Chronic Problems): Chronic Problems (Last Reviewed 07/22/18 @ 04:09 by Leon Armas MD) History of ventricular tachycardia (Chronic) Type 2 diabetes mellitus (Chronic) Prostatic enlargement (Chronic) Chronic renal failure, stage 4 (severe) (Chronic) Chronic combined systolic and diastolic CHF (congestive heart failure) (Chronic) History of nephrolithiasis (Chronic) Ischemic cardiomyopathy (Chronic) jail use of drug (Chronic) Right bundle branch block (Chronic) Complete AV block, 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 Cotto; 06/25/05, Sternal Dehiscence strnal rewiring & debridement Surgical History: cholecystectomy, and PCI to LMA graft - *Family History Paternal Family History: Family History (Last Reviewed 07/22/18 @ 04:09 by Leon Armas MD) Father Myocardial infarction Hypertension Heart disease Mother Hypertension Emphysema of lung FH: brain aneurysm Daughter Afib History Items: Heart Disease Maternal Family History: Family History (Last Reviewed 07/22/18 @ 04:09 by Leon Armas MD) Father Myocardial infarction Hypertension Heart disease Mother Hypertension Emphysema of lung FH: brain aneurysm Daughter Afib History Items: No pertinent history Lives: Spouse/ Significant Other Smoking Status: Former smoker Alcohol: None Drugs: None Review of Systems - Review of Systems General: Denies: Fever, Night Sweats, Fatigue HEENT: Denies: Vision Change Cardiovascular: Reports: Chest Discomfort, Shortness of Breath. Denies: Orthopnea, PND, Peripheral Edema, Palpitations, Lightheadedness, Dizziness, Near Syncope, Syncope Respiratory: Denies: Cough, Sputum Production, Hemoptysis Gastrointestinal: Denies: Hematemesis, Hematochezia, Melena Genitourinary: Denies: Dysuria, Hematuria Muscoloskeletal: Denies: Myalgias Skin: Denies: Rash Neurological: Denies: Dizziness Psychiatric: Reports: Anxiety Endocrine: Denies: Unexplained Weight Loss Hematologic/ Lymphatic: Denies: Anemia Subjectve: Pleasant gentleman in no apparent distress Objective: Vital Signs Temp Pulse Resp BP Pulse Ox 97.9 F 85 16 117/52 L 94 07/22/18 01:38 07/22/18 03:02 07/22/18 01:38 07/22/18 01:38 07/22/18 01:38 Oxygen Flow Rate (L/min) 2 Oxygen Delivery Method Room Air Weight: 172 lb 6.424 oz Body Mass Index (BMI) 29.5 Intake and Output for Last 24 Hours 07/20/18 07/21/18 07/22/18 23:59 23:59 23:59 Intake Total 240 / 240 Balance 240 / 240 General: Awake, Alert, Oriented x 3 HEENT: PERRL, EOMI, Sclera Non Icteric Neck: Supple, Good ROM, No Lymph Node Enlargement Lungs: Clear to auscultation Cardiovascular: Regular Rhythm, Normal S1, Normal S2, No Murmurs, No Rubs, No Gallops Vascular: No Carotid Bruits, Normal Femoral Pulses, Normal Radial Pulses, Normal Dorsalis Pedal Pulse, Normal Posterior Tibial Pulses Abdomen: Bowel Sounds Present, Soft, Non Tender, No HSM, No Organomegaly Extremities: No Cyanosis, No Clubbing, No edema Musculoskeletal: No Erythema Skin: No Rashes Lymphatic: No Lymph Node Enlargement Neurological: No Focal Motor or Sensory Deficit Psych/Mental Status: Appropriate 07/21/18 18:30: WBC 7.1, RBC 4.10 L, Hgb 11.7 L, Hct 36.6 L, MCV 89.3, MCH 28.5, MCHC 32.0, RDW 16.5 H, RDW Differential 54.0 H, Plt Count 358, MPV 10.6, Immature Gran % (Auto) 0.700, Neut % (Auto) 86.4 H, Lymph % (Auto) 5.3 L, [place] % (Auto) 7.0, Eos % (Auto) 0.3, Baso % (Auto) 0.3, Absolute Neuts (auto) 6.2, Total Counted Not Reportable 07/21/18 18:30: Sodium 140, Potassium 4.8, Chloride 107, Carbon Dioxide 27.0, Anion Gap 6, BUN 71 H, Creatinine 2.69 H, Est GFR (MDRD) Af Amer 29 L, Est GFR (MDRD) Non-Af 24 L, BUN/Creatinine Ratio 26.4 H, Glucose 210 H, Calcium 9.2, Troponin I 2.470 H* 07/21/18 18:30: B-Natriuretic Peptide 1727.2 H 07/21/18 22:10: Troponin I 2.950 H* 07/22/18 01:29: Troponin I 2.460 H* 07/22/18 05:05: Sodium 142, Potassium 4.7, Chloride 107, Carbon Dioxide 27.0, Anion Gap 8, BUN 71 H, Creatinine 2.66 H, Est GFR (MDRD) Af Amer 30 L, Est GFR (MDRD) Non-Af 25 L, BUN/Creatinine Ratio 26.7 H, Glucose 189 H, Calcium 10.0, Triglycerides 123, Cholesterol 130, LDL Cholesterol 69, VLDL Cholesterol 25, HDL Cholesterol 36 L Rhythm: EKG: Paced rhythm with T wave inversions ECHO: Stress Test: Cardiac Cath: PCI: CT Surgery: Holter monitor: EPS: PPM: CXR: Chest CT Scan: Assessment/Plan 1. Non-ST elevation myocardial infarction Patient presents with a non-ST elevation myocardial infarction with chest discomfort which is suggestive of angina. He has had previous bypass surgery and previous stenting. He does have significant renal dysfunction and I have discussed with him about the risks and potential benefits about proceeding with cardiac catheterization. I suggested to him that there may be a possibility of performing it as a staged procedure with minimal contrast agents. He is agreeable to the above. Continue him on his aspirin Clopidogrel Cardiac catheterization demonstrated totally occluded LAD, Minimally diseased right coronary artery Previously stented first obtuse marginal branch with high-grade in-stent stenosis We will discuss reangioplasty of the above vessel. 2. Congestive heart failure-acute systolic Patient has known hypertensive heart disease with reduced ejection fraction. He does have precarious renal condition and is been followed by the carving machine operator as well. Will remain on the beta-daniel. 3. Hypertension Patient has known hypertensive heart disease which appears appears to be fairly decently controlled Continue current medical therapy 4. Status post coronary artery bypass surgery Patient appears to be having more chest discomfort. His [place] arteries were evaluated in 2016 and he was noted to have a patent RUSH to the LAD, patent circumflex artery and right coronary artery. The saphenous vein graft to the obtuse marginal was occluded. These will be reevaluated. 5. Status post permanent pacemaker implantation Patient continues to follow-up regarding the above at the pacemaker clinic. 6. Ischemic cardiomyopathy Patient has a known ischemic cardiomyopathy with an estimated ejection fraction of between 20 and 30%. He has expressed no inclination to have his pacemaker upgraded to a defibrillator. We will continue to follow him as we are doing. Thank you for allowing me to participate in the care of your patient. Please don't hesitate to call if any issues arise
--- NOTE | 2018-07-22 06:40 | CON.PCM_ITS ---
Reason for Consult Date of Consultation: 07/22/18 Reason for Consultation: Chest pain and shortness of breath History of Present Illness: JOSIAS GUERRA, is a 82 M who presented to the emergency room yesterday complaining of shortness of breath as well as chest discomfort described as an ache. He said it reminded him of his previous heart attack he did take sublingual nitroglycerin with no improvement and therefore presented to the emergency room. In the emergency room he was evaluated and noted to have abnormal cardiac troponin enzyme. Cardiology was called for further evaluation. He has a history of coronary artery disease with bypass surgery in 2005. He had an RUSH to the LAD, SVG to the circumflex. Heart catheterization in 2016 demonstrated widely patent stent in the proximal left main and proximal circumflex, 80% stenosis in the mid LAD, patent previously placed stent in the proximal circumflex, patent stent in the obtuse marginal, patent RUSH to the LAD. His right coronary artery did not have any significant stenosis. 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 At this particular time he says that he has been doing better. He denies any worsening in his dizziness. He does have a cough which is chronic. Past Medical History Allergies/Adverse Reactions: Allergies Penicillins Allergy (Verified 07/21/18 17:44) Anaphylaxis rosuvastatin calcium [From Crestor] Allergy (Verified 07/21/18 17:44) legs hurt Wbnukic-Whv-Aiu Reductase Inhibitor Allergy (Verified 07/21/18 17:44) body aches amlodipine [From Norvasc] Adverse Reaction (Intermediate, Verified 07/21/18 17:44) dizzy Home Medications: Ambulatory Orders Medication Instructions Recorded Folic Acid 5 mg PO QHS 03/12/14 Aspirin [Aspirin, Baby] 81 mg PO QHS 04/14/14 Multivitamins,Therapeutic 1 tab PO QHS 04/14/14 [Multivitamin] Ubidecarenone [Q-Sorb Co Q-10] 100 mg PO QHS 02/25/16 nitroglycerin 0.4 mg sublingual 0.4 mg SUBLINGUAL Q5M PRN #25 tab 06/05/17 tablet clopidogrel 75 mg tablet 75 mg PO QHS #90 tab 09/17/17 tamsulosin 0.4 mg capsule 0.4 mg PO DAILY 12/02/17 furosemide 40 mg tablet 40 mg PO DAILY tab 11/20/18 carvedilol 3.125 mg tablet 3.125 mg PO BID #60 tab 03/24/18 Hydrocodone/Acetaminophen 1 tab PO BID PRN PRN 07/21/18 [Hydrocodone-Acetamin 5-325 mg] Past Medical History (Chronic Problems): Chronic Problems (Last Reviewed 07/22/18 @ 04:09 by Leon Armas MD) History of ventricular tachycardia (Chronic) Type 2 diabetes mellitus (Chronic) Prostatic enlargement (Chronic) Chronic renal failure, stage 4 (severe) (Chronic) Chronic combined systolic and diastolic CHF (congestive heart failure) (Chronic) History of nephrolithiasis (Chronic) Ischemic cardiomyopathy (Chronic) penitentiary use of drug (Chronic) Right bundle branch block (Chronic) Complete AV block, 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) HTN (hypertension) (Chronic) HLD (hyperlipidemia) (Chronic) Esophageal reflux (Chronic) Diaphragmatic hernia (Chronic) Coronary atherosclerosis of [place] coronary artery (Chronic) Cardiac pacemaker (Chronic) 12/14 Implantable Loop Recorder; 02/12/09 Removal of Loop Recorder; PPM Implant 05/2014 Ventricular tachycardia (Chronic) S/P PTCA (percutaneous transluminal coronary angioplasty) (Chronic) S/P CABG x 2 (Chronic) CABG with RUSH to LAD, SVG to Cx 06/17/05 Dr. Cotto; 06/25/05, Sternal Dehiscence strnal rewiring & debridement Surgical History: cholecystectomy, and PCI to LMA graft - *Family History Paternal Family History: Family History (Last Reviewed 07/22/18 @ 04:09 by Leon Armas MD) Father Myocardial infarction Hypertension Heart disease Mother Hypertension Emphysema of lung FH: brain aneurysm Daughter Afib History Items: Heart Disease Maternal Family History: Family History (Last Reviewed 07/22/18 @ 04:09 by Leon Armas MD) Father Myocardial infarction Hypertension Heart disease Mother Hypertension Emphysema of lung FH: brain aneurysm Daughter Afib History Items: No pertinent history Lives: Spouse/ Significant Other Smoking Status: Former smoker Alcohol: None Drugs: None Review of Systems - Review of Systems General: Denies: Fever, Night Sweats, Fatigue HEENT: Denies: Vision Change Cardiovascular: Reports: Chest Discomfort, Shortness of Breath. Denies: Orthopnea, PND, Peripheral Edema, Palpitations, Lightheadedness, Dizziness, Near Syncope, Syncope Respiratory: Denies: Cough, Sputum Production, Hemoptysis Gastrointestinal: Denies: Hematemesis, Hematochezia, Melena Genitourinary: Denies: Dysuria, Hematuria Muscoloskeletal: Denies: Myalgias Skin: Denies: Rash Neurological: Denies: Dizziness Psychiatric: Reports: Anxiety Endocrine: Denies: Unexplained Weight Loss Hematologic/ Lymphatic: Denies: Anemia Subjectve: Pleasant gentleman in no apparent distress Objective: Vital Signs Temp Pulse Resp BP Pulse Ox 97.9 F 85 16 117/52 L 94 07/22/18 01:38 07/22/18 03:02 07/22/18 01:38 07/22/18 01:38 07/22/18 01:38 Oxygen Flow Rate (L/min) 2 Oxygen Delivery Method Room Air Weight: 172 lb 6.424 oz Body Mass Index (BMI) 29.5 Intake and Output for Last 24 Hours 07/20/18 07/21/18 07/22/18 23:59 23:59 23:59 Intake Total 240 / 240 Balance 240 / 240 General: Awake, Alert, Oriented x 3 HEENT: PERRL, EOMI, Sclera Non Icteric Neck: Supple, Good ROM, No Lymph Node Enlargement Lungs: Clear to auscultation Cardiovascular: Regular Rhythm, Normal S1, Normal S2, No Murmurs, No Rubs, No Gallops Vascular: No Carotid Bruits, Normal Femoral Pulses, Normal Radial Pulses, Normal Dorsalis Pedal Pulse, Normal Posterior Tibial Pulses Abdomen: Bowel Sounds Present, Soft, Non Tender, No HSM, No Organomegaly Extremities: No Cyanosis, No Clubbing, No edema Musculoskeletal: No Erythema Skin: No Rashes Lymphatic: No Lymph Node Enlargement Neurological: No Focal Motor or Sensory Deficit Psych/Mental Status: Appropriate 07/21/18 18:30: WBC 7.1, RBC 4.10 L, Hgb 11.7 L, Hct 36.6 L, MCV 89.3, MCH 28.5, MCHC 32.0, RDW 16.5 H, RDW Differential 54.0 H, Plt Count 358, MPV 10.6, Immature Gran % (Auto) 0.700, Neut % (Auto) 86.4 H, Lymph % (Auto) 5.3 L, [place] % (Auto) 7.0, Eos % (Auto) 0.3, Baso % (Auto) 0.3, Absolute Neuts (auto) 6.2, Total Counted Not Reportable 07/21/18 18:30: Sodium 140, Potassium 4.8, Chloride 107, Carbon Dioxide 27.0, Anion Gap 6, BUN 71 H, Creatinine 2.69 H, Est GFR (MDRD) Af Amer 29 L, Est GFR (MDRD) Non-Af 24 L, BUN/Creatinine Ratio 26.4 H, Glucose 210 H, Calcium 9.2, Troponin I 2.470 H* 07/21/18 18:30: B-Natriuretic Peptide 1727.2 H 07/21/18 22:10: Troponin I 2.950 H* 07/22/18 01:29: Troponin I 2.460 H* 07/22/18 05:05: Sodium 142, Potassium 4.7, Chloride 107, Carbon Dioxide 27.0, Anion Gap 8, BUN 71 H, Creatinine 2.66 H, Est GFR (MDRD) Af Amer 30 L, Est GFR (MDRD) Non-Af 25 L, BUN/Creatinine Ratio 26.7 H, Glucose 189 H, Calcium 10.0, Triglycerides 123, Cholesterol 130, LDL Cholesterol 69, VLDL Cholesterol 25, HDL Cholesterol 36 L Rhythm: EKG: Paced rhythm with T wave inversions ECHO: Stress Test: Cardiac Cath: PCI: CT Surgery: Holter monitor: EPS: PPM: CXR: Chest CT Scan: Assessment/Plan 1. Non-ST elevation myocardial infarction * Patient presents with a non-ST elevation myocardial infarction with chest discomfort which is suggestive of angina. He has had previous bypass surgery and previous stenting. He does have significant renal dysfunction and I have discussed with him about the risks and potential benefits about proceeding with cardiac catheterization. * I suggested to him that there may be a possibility of performing it as a staged procedure with minimal contrast agents. He is agreeable to the above. * Continue him on his aspirin * Clopidogrel * Cardiac catheterization demonstrated totally occluded LAD, * Minimally diseased right coronary artery * Previously stented first obtuse marginal branch with high-grade in-stent stenosis * We will discuss reangioplasty of the above vessel. 2. Congestive heart failure-acute systolic * Patient has known hypertensive heart disease with reduced ejection fraction. * He does have precarious renal condition and is been followed by the supervisor vegetable farming as well. * Will remain on the beta-daniel. 3. Hypertension * Patient has known hypertensive heart disease which appears appears to be fairly decently controlled * Continue current medical therapy * 4. Status post coronary artery bypass surgery * Patient appears to be having more chest discomfort. His [place] arteries were evaluated in 2016 and he was noted to have a patent RUSH to the LAD, patent circumflex artery and right coronary artery. The saphenous vein graft to the obtuse marginal was occluded. These will be reevaluated. * 5. Status post permanent pacemaker implantation * Patient continues to follow-up regarding the above at the pacemaker clinic. * * 6. Ischemic cardiomyopathy * Patient has a known ischemic cardiomyopathy with an estimated ejection fraction of between 20 and 30%. * He has expressed no inclination to have his pacemaker upgraded to a defibrillator. We will continue to follow him as we are doing. * Thank you for allowing me to participate in the care of your patient. Please don't hesitate to call if any issues arise
--- NOTE | 2018-07-22 06:50 | ECHOCS_ITS ---
Reason For Study: S/P [place] Procedure This was a 2D Doppler, Color Flow transthoracic echocardiogram. Exam performed portable in patient room. Left Ventricle Mildly dilated left ventricle. The estimated ejection fraction is 20 %. Stage 2 diastolic dysfunction. There is moderate to severe global hypokinesis of the left ventricle. Right Ventricle Normal RV size. ICD or pacer leads identified within the right ventricle. Normal systolic function. Atria Normal left atrium. Normal right atrium. Mitral Valve Bileaflet diffuse mitral valve thickening. Mild (1+) eccentric mitral valve insufficiency. Tricuspid Valve Normal tricuspid valve. Mild to moderate (1-2+) tricuspid valve insufficiency. Pulmonary artery systolic pressure is 38 mmHg. Aortic Valve Trisinus/trileaflet aortic valve. Pulmonic Valve Normal pulmonic valve. Mild (1+) pulmonic valve insufficiency. Great Vessels Normal aortic root. The pulmonary artery is normal size. Normal inferior vena cava. Pericardium/Pleural No pericardial effusion. Medication Diluted definity 2ml given slow IV push to enhance endocardial definition. MMode/2D Measurements & Calculations LVIDd: 6.1 cm IVSd: 0.79 cm Ao root diam: 3.1 cm LVIDs: 5.5 cm LVPWd: 0.87 cm LA dimension: 4.3 cm RVDd: 3.9 cm FS: 9.3 % LAV(MOD-bp): 48.4 ml LVAd ap4: 44.2 cm2 SV(MOD-sp4): 37.9 ml LAV(MOD-bp) Indexed: 26.6 ml/m2 EDV(MOD-sp4): 181.5 ml LAV(MOD-sp2): 54.3 ml EDV(sp4-el): 185.8 ml LAV(MOD-sp4): 43.9 ml LVAs ap4: 38.1 cm2 ESV(MOD-sp4): 143.6 ml ESV(sp4-el): 147.2 ml EF(MOD-sp4): 20.9 % EF(sp4-el): 20.8 % SV(sp4-el): 38.6 ml LA A4 area: 16.9 cm2 RA A4 area: 15.6 cm2 Time Measurements MV dec time: 0.21 sec Doppler Measurements & Calculations MV E max derrick: 91.4 cm/sec Lat Peak E' Derrick: 4.2 cm/sec Med Peak E' Derrick: 3.8 cm/sec MV A max derrick: 107.0 cm/sec E/E' lat: 21.7 E/E' med: 24.2 MV E/A: 0.85 Ao V2 max: 148.2 cm/sec LV V1 max: 58.8 cm/sec PA V2 max: 69.7 cm/sec Ao max P.8 mmHg LV V1 max P.4 mmHg TR max derrick: 288.1 cm/sec PI dec slope: 87.1 cm/sec2 TR max P.2 mmHg Interpretation Summary Mildly dilated left ventricle. The estimated ejection fraction is 20 %. Stage 2 diastolic dysfunction. Mild to moderate (1-2+) tricuspid valve insufficiency. Pulmonary artery systolic pressure is 38 mmHg. Ordering Physician: David Fagan Referring Physician: DARSHAN FERRER Performed By: Candi Anguiano RDCS
[2018-07-22 07:13] LABS: International Normalized Ratio 1.4; Prothrombin Time (Protime)PT. 16.9 SECONDS (11.7-14.9)
[2018-07-22 07:14] LABS: Absolute Lymphocyte Count 0.73 X10^3/ul (0.83-4.51); Absolute Neutrophil Count 7.1 X10^3/uL (2.0-7.7); Basophil# 0.04 X10^3/uL; Basophil% 0.5 % (0-1); Eosinophil# 0.04 X10^3/uL; Eosinophils% 0.5 % (0-5); Hematocrit 39.8 % (40-54); Hemoglobin 12.7 g/dl (13.0-16.5); Lymphocyte # 0.73 X10^3/ul (4.0); Lymphocyte % 8.5 % (19-41); Mean Corp Hgb Conc 31.9 g/gl (32-36); Mean Corpuscular Hgb 28.4 pg (27.0-32.0); Mean Platelet Vol. 11.1 fl (6.2-12.0); Monocyte# 0.56 X10^3/uL; Monocyte% 6.6 % (0-10); Neutrophil # 7.11 X10^3/uL (2.7-7.7); Neutrophil % 83.2 % (47-70); POSITIVE COUNT NO; POSITIVE DIFFERENTIAL NO; POSITIVE MORPHOLOGY NO; Platelet Count 405 K/mm3 (150-450); RBC Distribution Width CV 16.6 % (11.6-14.6); RBC Distribution Width SD 54.3 fl (35.1-43.9); Red Blood Count 4.47 M/mm3 (4.6-6.2); White Blood Count 8.5 K/mm3 (4.4-11.0)
--- NOTE | 2018-07-22 09:04 | CASEMGMT ---
According to the [employer] website, the following are in-network tertiary facilities: [facility], [place], [facility], [place], [facility], [facility], [place], [facility], and . Cullen ROJAS CM
[2018-07-22] MEDS: Clopidogrel Bisulfate 75 MG Tablet PO (09:10)
[2018-07-22] MEDS: Aspirin 81 MG TAB.CHEW PO (09:10)
[2018-07-22] MEDS: Carvedilol 3.125 MG TABLET PO ×2 (09:10→21:00)
--- NOTE | 2018-07-22 11:05 | CASEMGMT ---
RN CM SPECIAL DELIVERY MAIL CARRIER CM to room to meet with patient for initial transition planning/care coordination assessment. CRYSTAL FRANKS introduced self and role at [facility]. Pt voices understanding/ Pt resting in bed in no distress at this time. and several other family members present. Pt states agreeable to assessment while they are present. Pt is A/O at this time and answers all questions appropriately. and family in room also provided information during assessment. Care providers, pharmacy, and demographics verified at this time. PCP: Raymundo Specialists: Gracia-cardiology, Miguel-renal, Jennifer--pain mgmt in [place]. [facility]acy[facility] Insurance: [employer] Prescription Benefit: Yes Living Will/HPOA: Has both LW and HCPOA, who is his Aixa. Aixa aware they are not on record and states she will try and bring them in sometime in the future. LNOK: . 2 daughters and a son. Living Arrangements: Lives with his in a one-story home w/a basement. Daughter, Nathalia Otto, lives with them. Independent w/all personal ADL's. does meals, laundry, and cleaning. Transportation: Pt states drives self and states no transportation concerns at this time. able to drive pt home on d/c. DME: Denies using any DME and denies needs. HHC/SNF: No history of SNF. Had HHC in the past over 10 yrs ago. Does not remember the name of agency. No needs for HHC identified. Pt wishes to return home and states has no concerns with going home at time of discharge. Pt works full-time at [employer]. CM to follow for any discharge planning/needs. Pt voices no further concerns/needs at this time. Advised pt to ask for CM if any further questions/concerns/needs arise. Voices understanding. PLAN: Home w/family support and discharge plans in place. Tania NOLAN RN, CM
[2018-07-22] MEDS: 0.9% Normal Saline 1,000 ML 15 ML IV (11:24)
--- NOTE | 2018-07-22 13:02 | PCM.PROGNOTE ---
<Darron Null - Last Filed: 07/22/18 13:22> Subjective: This AM patient is comfortable resting in bed, agreeable to cath. No CP, SOB, palp. Going for Cath with Dr. Fagan this afternoon. He states he has a hx of EF of 20%, has PM but no ICD, also hx of CABG. His frame maker is Dr. Rivera. - Physical Exam General: Alert, Oriented x3, Cooperative HEENT: Atraumatic, PERRLA, EOMI, Normocephalic Neck: Supple, No JVD, Negative Carotid Bruits Lungs: Clear to auscultation, Normal air movement Cardiovascular: Regular rate, No murmurs Abdomen: Bowel Sounds Present, Soft, Non Tender Extremities: No edema, Capillary Refill Less than 3 Seconds Skin: No rashes, No breakdown Musculoskeletal: No Tenderness to Palpation of Joints or Extremities Neurological: Cranial nerves II-XII grossly intact Psych/Mental Status: Normal Affect, Appropriate, Alert and oriented to time, place, person, mood and affect Vital Signs Temp Pulse Resp BP Pulse Ox 98.7 F 70 19 H 119/65 95 07/22/18 09:07 07/22/18 11:02 07/22/18 09:07 07/22/18 09:07 07/22/18 09:07 Oxygen Flow Rate (L/min) 2 Oxygen Delivery Method Room Air Weight: 169 lb 1.513 oz Body Mass Index (BMI) 29.5 Intake and Output for Last 24 Hours 07/20/18 07/21/18 07/22/18 23:59 23:59 23:59 Intake Total 240 / 240 Output Total 1175 / 1175 Balance 240 / 240 -1175 / -1175 Laboratory Tests Past 24 Hrs 07/21/18 07/21/18 07/21/18 18:30 18:30 18:30 WBC 7.1 RBC 4.10 L Hgb 11.7 L Hct 36.6 L MCV 89.3 MCH 28.5 MCHC 32.0 RDW 16.5 H RDW Differential 54.0 H Plt Count 358 MPV 10.6 Immature Gran % (Auto) 0.700 Neut % (Auto) 86.4 H Lymph % (Auto) 5.3 L [place] % (Auto) 7.0 Eos % (Auto) 0.3 Baso % (Auto) 0.3 Absolute Neuts (auto) 6.2 Absolute Lymphs (auto) 0.38 L Total Counted Not Reportable Differential Comment SCANNED PT INR APTT Sodium 140 Potassium 4.8 Chloride 107 Carbon Dioxide 27.0 Anion Gap 6 BUN 71 H Creatinine 2.69 H Estim Creat Clear Calc 17.04 Est GFR (MDRD) Af Amer 29 L Est GFR (MDRD) Non-Af 24 L BUN/Creatinine Ratio 26.4 H Glucose 210 H Calcium 9.2 Troponin I 2.470 H* B-Natriuretic Peptide 1727.2 H Triglycerides Cholesterol LDL Cholesterol VLDL Cholesterol HDL Cholesterol 07/21/18 07/22/18 07/22/18 22:10 01:29 05:05 WBC RBC Hgb Hct MCV MCH MCHC RDW RDW Differential Plt Count MPV Immature Gran % (Auto) Neut % (Auto) Lymph % (Auto) [place] % (Auto) Eos % (Auto) Baso % (Auto) Absolute Neuts (auto) Absolute Lymphs (auto) Total Counted Differential Comment PT INR APTT Sodium 142 Potassium 4.7 Chloride 107 Carbon Dioxide 27.0 Anion Gap 8 BUN 71 H Creatinine 2.66 H Estim Creat Clear Calc 17.93 Est GFR (MDRD) Af Amer 30 L Est GFR (MDRD) Non-Af 25 L BUN/Creatinine Ratio 26.7 H Glucose 189 H Calcium 10.0 Troponin I 2.950 H* 2.460 H* B-Natriuretic Peptide Triglycerides 123 Cholesterol 130 LDL Cholesterol 69 VLDL Cholesterol 25 HDL Cholesterol 36 L 07/22/18 07/22/18 05:05 05:05 WBC 8.5 RBC 4.47 L Hgb 12.7 L Hct 39.8 L MCV 89.0 MCH 28.4 MCHC 31.9 L RDW 16.6 H RDW Differential 54.3 H Plt Count 405 MPV 11.1 Immature Gran % (Auto) 0.700 Neut % (Auto) 83.2 H Lymph % (Auto) 8.5 L [place] % (Auto) 6.6 Eos % (Auto) 0.5 Baso % (Auto) 0.5 Absolute Neuts (auto) 7.1 Absolute Lymphs (auto) 0.73 L Total Counted Not Reportable Differential Comment PT 16.9 H INR 1.4 APTT 53.0 H Sodium Potassium Chloride Carbon Dioxide Anion Gap BUN Creatinine Estim Creat Clear Calc Est GFR (MDRD) Af Amer Est GFR (MDRD) Non-Af BUN/Creatinine Ratio Glucose Calcium Troponin I B-Natriuretic Peptide Triglycerides Cholesterol LDL Cholesterol VLDL Cholesterol HDL Cholesterol Medical Necessity - Tobacco Use Smoking Status: Former smoker Assessment/Plan All Active Problems (Last Reviewed 07/22/18 @ 04:09 by Leon Armas MD) Acute on chronic systolic CHF (congestive heart failure) (Acute) Radiculitis of leg (Acute) Abdominal pain (Ruled-out) NSTEMI (non-ST elevated myocardial infarction) (Resolved) Pneumonia (Resolved) Unstable angina (Resolved) 1. NSTEMI - cath today with Dr. Fagan. Echo pending. Trop peak 2.950. On asa/plavix/coreg 2. Possible Acute on chronic systolic CHF with ischemic cardiomyopathy - continue lasix. CXR with cardiomegaly and mild left lung airspace dz. Respiratory symptoms minimal this AM. 3. 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 Hx CAD - prior CABG, ptca 5. BPH - flomax 6. CKD III - at baseline. Pt of Dr. Rivera. Trend closely with contrast administration. This patient was seen by Darron Null PA-C under the supervision of Dr. Dugan. <Harpreet Dugan - Last Filed: 07/22/18 16:17> - Physical Exam General: Alert, Cooperative HEENT: Atraumatic, Normocephalic Lungs: Clear to auscultation, Normal air movement Cardiovascular: Regular rate, Regular Rhythm, Normal S1, Normal S2 Abdomen: Bowel Sounds Present, Soft, Non Tender, Non-Distended Extremities: No edema, Capillary Refill Less than 3 Seconds, No Calf Tenderness Skin: No rashes, No breakdown Psych/Mental Status: Normal Affect, Appropriate Vital Signs Temp Pulse Resp BP Pulse Ox 36.6 C 70 25 H 147/47 H 99 07/22/18 16:00 07/22/18 16:00 07/22/18 16:00 07/22/18 16:00 07/22/18 16:00 Oxygen Flow Rate (L/min) 2 Oxygen Delivery Method Room Air Weight: 76 kg Body Mass Index (BMI) 29.5 Intake and Output for Last 24 Hours 07/20/18 07/21/18 07/22/18 23:59 23:59 23:59 Intake Total 240 / 240 Output Total 1175 / 1175 Balance 240 / 240 -1175 / -1175 Laboratory Tests Past 24 Hrs 07/21/18 07/21/18 07/21/18 18:30 18:30 18:30 WBC 7.1 RBC 4.10 L Hgb 11.7 L Hct 36.6 L MCV 89.3 MCH 28.5 MCHC 32.0 RDW 16.5 H RDW Differential 54.0 H Plt Count 358 MPV 10.6 Immature Gran % (Auto) 0.700 Neut % (Auto) 86.4 H Lymph % (Auto) 5.3 L [place] % (Auto) 7.0 Eos % (Auto) 0.3 Baso % (Auto) 0.3 Absolute Neuts (auto) 6.2 Absolute Lymphs (auto) 0.38 L Total Counted Not Reportable Differential Comment SCANNED PT INR APTT Activated Clotting Time Sodium 140 Potassium 4.8 Chloride 107 Carbon Dioxide 27.0 Anion Gap 6 BUN 71 H Creatinine 2.69 H Estim Creat Clear Calc 17.04 Est GFR (MDRD) Af Amer 29 L Est GFR (MDRD) Non-Af 24 L BUN/Creatinine Ratio 26.4 H Glucose 210 H Calcium 9.2 Troponin I 2.470 H* B-Natriuretic Peptide 1727.2 H Triglycerides Cholesterol LDL Cholesterol VLDL Cholesterol HDL Cholesterol 07/21/18 07/22/18 07/22/18 22:10 01:29 05:05 WBC RBC Hgb Hct MCV MCH MCHC RDW RDW Differential Plt Count MPV Immature Gran % (Auto) Neut % (Auto) Lymph % (Auto) [place] % (Auto) Eos % (Auto) Baso % (Auto) Absolute Neuts (auto) Absolute Lymphs (auto) Total Counted Differential Comment PT INR APTT Activated Clotting Time Sodium 142 Potassium 4.7 Chloride 107 Carbon Dioxide 27.0 Anion Gap 8 BUN 71 H Creatinine 2.66 H Estim Creat Clear Calc 17.93 Est GFR (MDRD) Af Amer 30 L Est GFR (MDRD) Non-Af 25 L BUN/Creatinine Ratio 26.7 H Glucose 189 H Calcium 10.0 Troponin I 2.950 H* 2.460 H* B-Natriuretic Peptide Triglycerides 123 Cholesterol 130 LDL Cholesterol 69 VLDL Cholesterol 25 HDL Cholesterol 36 L 07/22/18 07/22/18 07/22/18 05:05 05:05 12:54 WBC 8.5 RBC 4.47 L Hgb 12.7 L Hct 39.8 L MCV 89.0 MCH 28.4 MCHC 31.9 L RDW 16.6 H RDW Differential 54.3 H Plt Count 405 MPV 11.1 Immature Gran % (Auto) 0.700 Neut % (Auto) 83.2 H Lymph % (Auto) 8.5 L [place] % (Auto) 6.6 Eos % (Auto) 0.5 Baso % (Auto) 0.5 Absolute Neuts (auto) 7.1 Absolute Lymphs (auto) 0.73 L Total Counted Not Reportable Differential Comment PT 16.9 H INR 1.4 APTT 53.0 H Activated Clotting Time 213 H Sodium Potassium Chloride Carbon Dioxide Anion Gap BUN Creatinine Estim Creat Clear Calc Est GFR (MDRD) Af Amer Est GFR (MDRD) Non-Af BUN/Creatinine Ratio Glucose Calcium Troponin I B-Natriuretic Peptide Triglycerides Cholesterol LDL Cholesterol VLDL Cholesterol HDL Cholesterol 07/22/18 13:50 WBC RBC Hgb Hct MCV MCH MCHC RDW RDW Differential Plt Count MPV Immature Gran % (Auto) Neut % (Auto) Lymph % (Auto) [place] % (Auto) Eos % (Auto) Baso % (Auto) Absolute Neuts (auto) Absolute Lymphs (auto) Total Counted Differential Comment PT INR APTT Activated Clotting Time 197 H Sodium Potassium Chloride Carbon Dioxide Anion Gap BUN Creatinine Estim Creat Clear Calc Est GFR (MDRD) Af Amer Est GFR (MDRD) Non-Af BUN/Creatinine Ratio Glucose Calcium Troponin I B-Natriuretic Peptide Triglycerides Cholesterol LDL Cholesterol VLDL Cholesterol HDL Cholesterol Assessment/Plan Patient seen and examined independently. Data reviewed. I agree with the above note by the physician it assistant. 1. NSTEMI s/p PCI with MARIUM to proximal OM1, LCx, LAD on ASA, Plavix no statins given myalgias cardiology following 2. CKD 4: monitor closely post-cath lasix stopped and currently receiving IVF. Sees Dr. Rivera, if consult necessary Patient asked when his kidney function will return to normal. Informed never, outside a transplant. Most importantly it is to ensure his creatine does not get worse. 3. HFrEF EF 20% clinically not volume overloaded CXR upon my review unremarkable for CHF. lasix stopped 4. VTE prophylaxis: SCDs DW the patient's and daughter at bedside. Code Visit Inpatient E&M: 57403 Subs Hosp L2
--- NOTE | 2018-07-22 13:07 | PN_ITS ---
<Darron Null - Last Filed: 07/22/18 13:22> Subjective: This AM patient is comfortable resting in bed, agreeable to cath. No CP, SOB, palp. Going for Cath with Dr. Fagan this afternoon. He states he has a hx of EF of 20%, has PM but no ICD, also hx of CABG. His technical sales representative is Dr. Rivera. - Physical Exam General: Alert, Oriented x3, Cooperative HEENT: Atraumatic, PERRLA, EOMI, Normocephalic Neck: Supple, No JVD, Negative Carotid Bruits Lungs: Clear to auscultation, Normal air movement Cardiovascular: Regular rate, No murmurs Abdomen: Bowel Sounds Present, Soft, Non Tender Extremities: No edema, Capillary Refill Less than 3 Seconds Skin: No rashes, No breakdown Musculoskeletal: No Tenderness to Palpation of Joints or Extremities Neurological: Cranial nerves II-XII grossly intact Psych/Mental Status: Normal Affect, Appropriate, Alert and oriented to time, place, person, mood and affect Vital Signs Temp Pulse Resp BP Pulse Ox 98.7 F 70 19 H 119/65 95 07/22/18 09:07 07/22/18 11:02 07/22/18 09:07 07/22/18 09:07 07/22/18 09:07 Oxygen Flow Rate (L/min) 2 Oxygen Delivery Method Room Air Weight: 169 lb 1.513 oz Body Mass Index (BMI) 29.5 Intake and Output for Last 24 Hours 07/20/18 07/21/18 07/22/18 23:59 23:59 23:59 Intake Total 240 / 240 Output Total 1175 / 1175 Balance 240 / 240 -1175 / -1175 Laboratory Tests Past 24 Hrs 07/21/18 07/21/18 07/21/18 18:30 18:30 18:30 WBC 7.1 RBC 4.10 L Hgb 11.7 L Hct 36.6 L MCV 89.3 MCH 28.5 MCHC 32.0 RDW 16.5 H RDW Differential 54.0 H Plt Count 358 MPV 10.6 Immature Gran % (Auto) 0.700 Neut % (Auto) 86.4 H Lymph % (Auto) 5.3 L [place] % (Auto) 7.0 Eos % (Auto) 0.3 Baso % (Auto) 0.3 Absolute Neuts (auto) 6.2 Absolute Lymphs (auto) 0.38 L Total Counted Not Reportable Differential Comment SCANNED PT INR APTT Sodium 140 Potassium 4.8 Chloride 107 Carbon Dioxide 27.0 Anion Gap 6 BUN 71 H Creatinine 2.69 H Estim Creat Clear Calc 17.04 Est GFR (MDRD) Af Amer 29 L Est GFR (MDRD) Non-Af 24 L BUN/Creatinine Ratio 26.4 H Glucose 210 H Calcium 9.2 Troponin I 2.470 H* B-Natriuretic Peptide 1727.2 H Triglycerides Cholesterol LDL Cholesterol VLDL Cholesterol HDL Cholesterol 07/21/18 07/22/18 07/22/18 22:10 01:29 05:05 WBC RBC Hgb Hct MCV MCH MCHC RDW RDW Differential Plt Count MPV Immature Gran % (Auto) Neut % (Auto) Lymph % (Auto) [place] % (Auto) Eos % (Auto) Baso % (Auto) Absolute Neuts (auto) Absolute Lymphs (auto) Total Counted Differential Comment PT INR APTT Sodium 142 Potassium 4.7 Chloride 107 Carbon Dioxide 27.0 Anion Gap 8 BUN 71 H Creatinine 2.66 H Estim Creat Clear Calc 17.93 Est GFR (MDRD) Af Amer 30 L Est GFR (MDRD) Non-Af 25 L BUN/Creatinine Ratio 26.7 H Glucose 189 H Calcium 10.0 Troponin I 2.950 H* 2.460 H* B-Natriuretic Peptide Triglycerides 123 Cholesterol 130 LDL Cholesterol 69 VLDL Cholesterol 25 HDL Cholesterol 36 L 07/22/18 07/22/18 05:05 05:05 WBC 8.5 RBC 4.47 L Hgb 12.7 L Hct 39.8 L MCV 89.0 MCH 28.4 MCHC 31.9 L RDW 16.6 H RDW Differential 54.3 H Plt Count 405 MPV 11.1 Immature Gran % (Auto) 0.700 Neut % (Auto) 83.2 H Lymph % (Auto) 8.5 L [place] % (Auto) 6.6 Eos % (Auto) 0.5 Baso % (Auto) 0.5 Absolute Neuts (auto) 7.1 Absolute Lymphs (auto) 0.73 L Total Counted Not Reportable Differential Comment PT 16.9 H INR 1.4 APTT 53.0 H Sodium Potassium Chloride Carbon Dioxide Anion Gap BUN Creatinine Estim Creat Clear Calc Est GFR (MDRD) Af Amer Est GFR (MDRD) Non-Af BUN/Creatinine Ratio Glucose Calcium Troponin I B-Natriuretic Peptide Triglycerides Cholesterol LDL Cholesterol VLDL Cholesterol HDL Cholesterol Medical Necessity - Tobacco Use Smoking Status: Former smoker Assessment/Plan All Active Problems (Last Reviewed 07/22/18 @ 04:09 by Leon Armas MD) Acute on chronic systolic CHF (congestive heart failure) (Acute) Radiculitis of leg (Acute) Abdominal pain (Ruled-out) NSTEMI (non-ST elevated myocardial infarction) (Resolved) Pneumonia (Resolved) Unstable angina (Resolved) 1. NSTEMI - cath today with Dr. Fagan. Echo pending. Trop peak 2.950. On asa/plavix/coreg 2. Possible Acute on chronic systolic CHF with ischemic cardiomyopathy - continue lasix. CXR with cardiomegaly and mild left lung airspace dz. Respiratory symptoms minimal this AM. 3. 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 Hx CAD - prior CABG, ptca 5. BPH - flomax 6. CKD III - at baseline. Pt of Dr. Rivera. Trend closely with contrast administration. This patient was seen by Darron Null PA-C under the supervision of Dr. Dugan. <Harpreet Dugan - Last Filed: 07/22/18 16:17> - Physical Exam General: Alert, Cooperative HEENT: Atraumatic, Normocephalic Lungs: Clear to auscultation, Normal air movement Cardiovascular: Regular rate, Regular Rhythm, Normal S1, Normal S2 Abdomen: Bowel Sounds Present, Soft, Non Tender, Non-Distended Extremities: No edema, Capillary Refill Less than 3 Seconds, No Calf Tenderness Skin: No rashes, No breakdown Psych/Mental Status: Normal Affect, Appropriate Vital Signs Temp Pulse Resp BP Pulse Ox 36.6 C 70 25 H 147/47 H 99 07/22/18 16:00 07/22/18 16:00 07/22/18 16:00 07/22/18 16:00 07/22/18 16:00 Oxygen Flow Rate (L/min) 2 Oxygen Delivery Method Room Air Weight: 76 kg Body Mass Index (BMI) 29.5 Intake and Output for Last 24 Hours 07/20/18 07/21/18 07/22/18 23:59 23:59 23:59 Intake Total 240 / 240 Output Total 1175 / 1175 Balance 240 / 240 -1175 / -1175 Laboratory Tests Past 24 Hrs 07/21/18 07/21/18 07/21/18 18:30 18:30 18:30 WBC 7.1 RBC 4.10 L Hgb 11.7 L Hct 36.6 L MCV 89.3 MCH 28.5 MCHC 32.0 RDW 16.5 H RDW Differential 54.0 H Plt Count 358 MPV 10.6 Immature Gran % (Auto) 0.700 Neut % (Auto) 86.4 H Lymph % (Auto) 5.3 L [place] % (Auto) 7.0 Eos % (Auto) 0.3 Baso % (Auto) 0.3 Absolute Neuts (auto) 6.2 Absolute Lymphs (auto) 0.38 L Total Counted Not Reportable Differential Comment SCANNED PT INR APTT Activated Clotting Time Sodium 140 Potassium 4.8 Chloride 107 Carbon Dioxide 27.0 Anion Gap 6 BUN 71 H Creatinine 2.69 H Estim Creat Clear Calc 17.04 Est GFR (MDRD) Af Amer 29 L Est GFR (MDRD) Non-Af 24 L BUN/Creatinine Ratio 26.4 H Glucose 210 H Calcium 9.2 Troponin I 2.470 H* B-Natriuretic Peptide 1727.2 H Triglycerides Cholesterol LDL Cholesterol VLDL Cholesterol HDL Cholesterol 07/21/18 07/22/18 07/22/18 22:10 01:29 05:05 WBC RBC Hgb Hct MCV MCH MCHC RDW RDW Differential Plt Count MPV Immature Gran % (Auto) Neut % (Auto) Lymph % (Auto) [place] % (Auto) Eos % (Auto) Baso % (Auto) Absolute Neuts (auto) Absolute Lymphs (auto) Total Counted Differential Comment PT INR APTT Activated Clotting Time Sodium 142 Potassium 4.7 Chloride 107 Carbon Dioxide 27.0 Anion Gap 8 BUN 71 H Creatinine 2.66 H Estim Creat Clear Calc 17.93 Est GFR (MDRD) Af Amer 30 L Est GFR (MDRD) Non-Af 25 L BUN/Creatinine Ratio 26.7 H Glucose 189 H Calcium 10.0 Troponin I 2.950 H* 2.460 H* B-Natriuretic Peptide Triglycerides 123 Cholesterol 130 LDL Cholesterol 69 VLDL Cholesterol 25 HDL Cholesterol 36 L 07/22/18 07/22/18 07/22/18 05:05 05:05 12:54 WBC 8.5 RBC 4.47 L Hgb 12.7 L Hct 39.8 L MCV 89.0 MCH 28.4 MCHC 31.9 L RDW 16.6 H RDW Differential 54.3 H Plt Count 405 MPV 11.1 Immature Gran % (Auto) 0.700 Neut % (Auto) 83.2 H Lymph % (Auto) 8.5 L [place] % (Auto) 6.6 Eos % (Auto) 0.5 Baso % (Auto) 0.5 Absolute Neuts (auto) 7.1 Absolute Lymphs (auto) 0.73 L Total Counted Not Reportable Differential Comment PT 16.9 H INR 1.4 APTT 53.0 H Activated Clotting Time 213 H Sodium Potassium Chloride Carbon Dioxide Anion Gap BUN Creatinine Estim Creat Clear Calc Est GFR (MDRD) Af Amer Est GFR (MDRD) Non-Af BUN/Creatinine Ratio Glucose Calcium Troponin I B-Natriuretic Peptide Triglycerides Cholesterol LDL Cholesterol VLDL Cholesterol HDL Cholesterol 07/22/18 13:50 WBC RBC Hgb Hct MCV MCH MCHC RDW RDW Differential Plt Count MPV Immature Gran % (Auto) Neut % (Auto) Lymph % (Auto) [place] % (Auto) Eos % (Auto) Baso % (Auto) Absolute Neuts (auto) Absolute Lymphs (auto) Total Counted Differential Comment PT INR APTT Activated Clotting Time 197 H Sodium Potassium Chloride Carbon Dioxide Anion Gap BUN Creatinine Estim Creat Clear Calc Est GFR (MDRD) Af Amer Est GFR (MDRD) Non-Af BUN/Creatinine Ratio Glucose Calcium Troponin I B-Natriuretic Peptide Triglycerides Cholesterol LDL Cholesterol VLDL Cholesterol HDL Cholesterol Assessment/Plan Patient seen and examined independently. Data reviewed. I agree with the above note by the physician railways assistant. 1. NSTEMI * s/p PCI with MARIUM to proximal OM1, LCx, LAD * on ASA, Plavix * no statins given myalgias * cardiology following 2. CKD 4: * monitor closely post-cath * lasix stopped and currently receiving IVF. * Sees Dr. Rivera, if consult necessary * Patient asked when his kidney function will return to normal. Informed never, outside a transplant. Most importantly it is to ensure his creatine does not get worse. 3. HFrEF * EF 20% * clinically not volume overloaded * CXR upon my review unremarkable for CHF. * lasix stopped 4. VTE prophylaxis: SCDs DW the patient's and daughter at bedside. Code Visit Inpatient E&M: 07274 Subs Hosp L2
--- NOTE | 2018-07-22 13:28 | CASEMGMT ---
Per RN CM patient has a Healthcare POA and Healthcare LW. He is aware they are not on file. Shital MATHEWS MSW
--- NOTE | 2018-07-22 13:31 | CL.D_ITS ---
Patient Name: JOSIAS GUERRA Study Date: 07/22/2018 Performing: David Fagan MD Ht: 64 inches 162.56 cm : 1935 Wt: 168.98 lbs 76.65 kg Age: 83 Gender: male BSA: 1.82 PROCEDURE(S) PERFORMED [id number] CLINICAL PROFILE AND INDICATIONS Indications: ACS <= 24 hrs Heart Failure: NYHA Class: 3, Newly Diagnosed: No, Heart Failure Type: Systolic Stress/Imaging Stress/Image Study Performed: No CONCLUSIONS Severe igiugig vessel disease involving the previously stented proximal circumflex artery and first ob tuse marginal branch as well as the proximal left anterior descending artery. RECOMMENDATIONS Referred for immediate PCI DESCRIPTION OF PROCEDURE The patient arrived to the procedure lab. The risks and benefits of the procedure as well as a full d escription of our services here and current unavailability of surgical backup were fully explained to the patient and/or their significant other prior to the catheterization. The Timeout was completed, verifying the correct patient and procedure. The patient's procedural site was prepped and draped in the usual fashion. Local anesthetic was given subcutaneously to right radial region with Lidocaine 2% . Using a modified Seldinger technique, arterial access was obtained via the right radial artery, a 6 Fr sheath was inserted. Left Coronary Artery selective angiography was performed in multiple views u sing a 5 Fr. 4.0 [place] catheter. Right Coronary Artery selective angiography was then performed in mu ltiple views using a 5 Fr. JR 5 catheter. CORONARY ANGIOGRAPHY DOMINANCE: Right Dominant LEFT HEART ASSESSMENT Left Ventricular Ejection Fraction: by Echo 25 % Depressed Left Ventricular systolic function LEFT MAIN: Previously placed stent is patent LEFT ANTERIOR DESCENDING ARTERY: OSTIAL LAD: 90 % Stenosis CIRCUMFLEX ARTERY: PROX CIRC: 70 % Stenosis, Previously placed stent is patent OM 1: Proximal - Previously placed stent has an instent 80 % restenosis RIGHT CORONARY ARTERY: No significant disease noted GRAFTS: Saphenous Vein graft to the LAD Was patent from the previously performed cath. The saphenous vein g raft to the circumflex artery was occluded noted previously and was not reimaged. COMPLICATIONS PROCEDURE MEDICATIONS Fentanyl 50 mcg IV Versed 1 mg IV Oxygen: 2 L/min via nasal cannula Heparin diluted in 23cc Heparinized saline. Patient given 10cc IA of this solution. 07/22/2018 11:56: 31 Heparin 6000 unit(s) IV 07/22/2018 12:48:48 Heparin 4000 unit(s) IV 07/22/2018 12:58:14 Verapamil 2.5mg, Ntg 100mcgs, 2000 units of Heparin diluted in 23cc Heparinized saline. Patient give n 10cc IA of this solution. 07/22/2018 11:56:31 SUMMARY OF HEMODYNAMIC DATA Time AIR REST ECG 11:48:20 ECG 11:54:22 Signed By David Fagan MD On 07/22/2018 13:30:03 David Fagan MD
--- NOTE | 2018-07-22 13:33 | NURSING ---
Report called to receiving CRYSTAL Dia in ICU. Garry ROJAS
--- NOTE | 2018-07-22 14:07 | CL.I_ITS ---
Patient Name: JOSIAS GUERRA Study Date: 07/22/2018 Performing: Paula Isaacs MD Ht: 64 inches 162.56 cm : 1935 Wt: 168.98 lbs 76.65 kg Age: 83 Gender: male BSA: 1.82 PROCEDURE(S) PERFORMED [id number] W OR WO PTCA, SINGLE CORONARY ARTERY [id number] W OR WO PTCA, EACH ADD'L ARTERY, SAME MAJOR [id number] W OR WO PTCA, SINGLE CORONARY ARTERY CLINICAL PROFILE AND CO-MORBIDITIES Indications: ACS <= 24 hrs Heart Failure: NYHA Class: 3, Newly Diagnosed: No, Heart Failure Type: Systolic Stress/Imaging Stress/Image Study Performed: No CONCLUSIONS Successful MARIUM Prox OM1 using Elunir 2.5x12 m, post-dilated using 2.75 mm balloon Successful MARIUM Prox LCX using Elunir 2.5x12 mm, post-dilated using 2.75 mm balloon Successful MARIUM Prox LAD ISR using 2.5x8 mm Resolute Integrity, post-dilated using 2.75 mm balloon RECOMMENDATIONS ASA Indefinitley Plavix for at least 12 months Follow up with Dr. Fagan DESCRIPTION OF PROCEDURE XB3.0 Guide catheter was inserted and engaged into the LCA. Runthru Guide wire was advanced to th e Circumflex. Guide catheter was exchanged for a XB 2.5VBT Angiogram performed pre balloon dilatation . 2.5x12 EluNir Drug Eluting stent was advanced across the lesion in the first obtuse marginal, proxi mal. Angiogram performed pre stent deployment. Angiogram performed post stent deployment. 2.75x12 NC eMERGE Balloon catheter was inserted post stent. Angiogram performed post balloon dilatation. 2.5X12 Elunir Drug Eluting stent was advanced across the lesion in the circumflex, proximal. Angiogram perfo rmed pre stent deployment. 2.75x12 NC Emerge Balloon catheter was inserted post stent. Angiogram perf ormed post stent deployment. 2.5x8 Resolute Drug Eluting stent was advanced across the lesion in the LAD, proximal. Drug Eluting stent was removed intact, failed to cross lesion Angiogram performed pre balloon dilatation. 2.0x8 Emerge Balloon catheter was advanced across lesion in the LAD, proximal. PTCA balloon inflated at 14 atms for 34 secs. PTCA balloon inflated at 8 atms for 10 secs. 2.5x8 Resolute Drug Eluting stent was advanced across the lesion in the LAD, proximal. 2.75x8 NC [place] ge Balloon catheter was inserted post stent. PTCA balloon inflated at 12 atms for 12 secs. PTCA ballo on inflated at 12 atms for 12 secs. Angiogram performed post balloon dilatation. The arterial sheat h was pulled and a TR Band was applied for hemostasis. 15cc Air INTERVENTION INFORMATION LESION SITE: 1st OM (Proximal) culprit lesion: Yes, Lesion Complexity: Non-High/Non-C, In-stent restenosis: Yes Pre Stenosis: 90 % Pre intervention PRANAY flow: 3 PROCEDURE: Drug Eluting Stent with post dilatation Post Stenosis: 5 % Post intervention PRANAY flow: 3 Lesion Devices: Cordis 6 Fr XB3.0 100cm Guide Catheter Terumo .014 Runthrough Extra Floppy 180cm straight Cordis 6 Fr XB2.5 VBT 100cm Guide Catheter Cardinal Elunir MARIUM RX 2.5x12 Lyle Sci NC EMERGE MR 2.75x12 BALLOON LESION SITE: Circumflex (Proximal) Lesion Complexity: Non-High/Non-C, culprit lesion: No, In-stent restenosis: No Pre Stenosis: 80 % Pre intervention PRANAY flow: 3 PROCEDURE: Drug Eluting Stent with post dilatation Post Stenosis: 0 % Post intervention PRANAY flow: 3 Lesion Devices: Cordis 6 Fr XB2.5 VBT 100cm Guide Catheter Lyle Sci NC EMERGE MR 2.75x12 BALLOON Cardinal Elunir MARIUM RX 2.5x12 LESION SITE: LAD (Proximal) culprit lesion: Yes, Lesion Complexity: Non-High/Non-C, In-stent restenosis: Yes Pre Stenosis: 95 % Pre intervention PRANAY flow: 3 PROCEDURE: Drug Eluting Stent with pre and post dilatation 0 % Post intervention PRANAY flow: 3 Lesion Devices: Cordis 6 Fr XB2.5 VBT 100cm Guide Catheter Terumo .014 Runthrough Extra Floppy 180cm straight Medtronic Resolute RX MARIUM 2.5x08 Lyle Sci EMERGE MR 2.00x08 BALLOON Lyle Sci NC EMERGE MR 2.75x08 BALLOON COMPLICATIONS No Complications PROCEDURE MEDICATIONS Fentanyl 50 mcg IV Versed 1 mg IV Oxygen: 2 L/min via nasal cannula Heparin diluted in 23cc Heparinized saline. Patient given 10cc IA of this solution. 07/22/2018 11:56: 31 Heparin 6000 unit(s) IV 07/22/2018 12:48:48 Heparin 4000 unit(s) IV 07/22/2018 12:58:14 Heparin 3000 unit(s) IV 07/22/2018 13:54:10 Verapamil 2.5mg, Ntg 100mcgs, 2000 units of Heparin diluted in 23cc Heparinized saline. Patient give n 10cc IA of this solution. 07/22/2018 11:56:31 SUMMARY OF HEMODYNAMIC DATA Time AIR REST ECG 11:48:20 ECG 11:54:22 Signed By Paula Isaacs MD On 07/22/2018 14:06:35 Paula Isaacs MD
--- NOTE | 2018-07-22 14:10 | EKG12_ITS ---
Test Reason : POST PCI' Blood Pressure : / mmHG Vent. Rate : 070 BPM Atrial Rate : 070 BPM P-R Int : 176 ms QRS Dur : 096 ms QT Int : 426 ms P-R-T Axes : 063 -19 176 degrees QTc Int : 460 ms Electronic atrial pacemaker with occasional PVCs ST & T wave abnormality, consider lateral ischemia Abnormal ECG Confirmed by ISAIAH HOLDER, LISSETTE ([id number]), medical transcription editor OZZIE BARNARD ([id number]) on 07/26/2018 4:32:26 PM Referred By: Leon Armas Confirmed By:LISSETTE COLON MD
[2018-07-22 14:11] LABS: ACT Activated Clotting Time 197 sec (74-137)
[2018-07-22 14:11] LABS: ACT Activated Clotting Time 213 sec (74-137)
[2018-07-22] MEDS: 0.9% Normal Saline 1,000 ML 100 ML IV (14:51)
[2018-07-22] MEDS: Tamsulosin HCl 0.4 MG Capsule PO (15:06)
[2018-07-22 17:31] LABS: Bedside Glucose 208 mg/dL (70-110)
--- NOTE | 2018-07-22 17:34 | CT_ITS ---
STUDY: CT BRAIN WITHOUT CONTRAST REASON FOR EXAM: Male, 83 years old. Dizziness RADIATION DOSAGE (If Supplied By Facility): DLP = ( 880.47 ) mGycm TECHNIQUE: Transaxial CT imaging of the brain was performed without administration of intravenous contrast material. Individualized dose optimization techniques were used for this CT. COMPARISON: None. FINDINGS: There is no acute bleed or infarct. There are chronic ischemic and atrophic changes. The ventricles are normal in configuration. There is no hydrocephalus. The visualized paranasal sinuses are clear. The mastoid air cells are well aerated. There is no skull fracture. CT/Brain/Head without Contrast IMPRESSION: No acute intracranial abnormality. Chronic ischemic and atrophic changes. Electronically Signed: Anil Hills, at 18:07 EDT Tel , Service support ,
[2018-07-22] MEDS: Folic Acid 1 MG Tablet 5 MG PO (21:00)
[2018-07-22] MEDS: Multivitamins,Therapeutic Tablet 1 TABLET PO (21:00)
[2018-07-23] VITALS (14 sets, daily range): BP systolic 112–167; BP diastolic 40–81; PULSE 69–77; RESP 16–27; TEMP 36.6–36.7; O2SAT 92–99
[2018-07-23 04:58] LABS: Hematocrit 38.3 % (40-54); Hemoglobin 12.5 g/dl (13.0-16.5); Mean Corp Hgb Conc 32.6 g/gl (32-36); Mean Corpuscular Hgb 28.9 pg (27.0-32.0); Mean Corpuscular Volume 88.7 fL (80-94); Platelet Count 433 K/mm3 (150-450); RBC Distribution Width CV 16.6 % (11.6-14.6); RBC Distribution Width SD 53.2 fl (35.1-43.9); Red Blood Count 4.32 M/mm3 (4.6-6.2); White Blood Count 7.7 K/mm3 (4.4-11.0)
[2018-07-23 05:08] LABS: Scan Indicated on CBC? Y/N NO
[2018-07-23 05:31] LABS: Anion Gap 9 (5-15); BUN 72 mg/dL (7-18); BUN/Creat Ratio 28.5 RATIO (10-20); Calcium,Total 9.4 mg/dL (8.5-10.1); Chloride 110 mmol/L (98-107); Creatinine, Serum 2.53 mg/dL (0.70-1.30); EST Glomerular Filtration Rate 26 mL/min (>60); Est Glom Filt Rate - Afr Amer 32 mL/min (>60); Estimated Creatinine Clearance 18.85 ml/min; Glucose 180 mg/dL (74-106); Potassium 4.7 mmol/L (3.5-5.1); Sodium Level 144 mmol/L (136-145)
--- NOTE | 2018-07-23 06:53 | PCM.PN.CARD ---
Subjectve: Patient seen and evaluated Objective: Vital Signs Temp Pulse Resp BP Pulse Ox 97.8 F 77 18 152/69 H 93 07/23/18 04:00 07/23/18 06:00 07/23/18 06:00 07/23/18 06:00 07/23/18 06:00 Oxygen Flow Rate (L/min) 2 Oxygen Delivery Method Room Air Weight: 169 lb 8.568 oz Body Mass Index (BMI) 29.5 Intake and Output for Last 24 Hours 07/21/18 07/22/18 07/23/18 23:59 23:59 23:59 Intake Total 240 / 240 1049 / 1049 120 / 120 Output Total 1925 / 1925 200 / 200 Balance 240 / 240 -876 / -876 -80 / -80 General: Awake, Alert, Oriented x 3 HEENT: PERRL, EOMI, Sclera Non Icteric Neck: Supple, Good ROM, No Lymph Node Enlargement Lungs: Clear to auscultation Cardiovascular: Regular Rhythm, Normal S1, Normal S2, No Murmurs, No Rubs, No Gallops Vascular: No Carotid Bruits, Normal Femoral Pulses, Normal Radial Pulses, Normal Dorsalis Pedal Pulse, Normal Posterior Tibial Pulses Abdomen: Bowel Sounds Present, Soft, Non Tender, No HSM, No Organomegaly Extremities: No Cyanosis, No Clubbing, No edema Musculoskeletal: No Erythema Lymphatic: No Lymph Node Enlargement Neurological: No Focal Motor or Sensory Deficit Psych/Mental Status: Appropriate 07/22/18 05:05: WBC 8.5, RBC 4.47 L, Hgb 12.7 L, Hct 39.8 L, MCV 89.0, MCH 28.4, MCHC 31.9 L, RDW 16.6 H, RDW Differential 54.3 H, Plt Count 405, MPV 11.1, Immature Gran % (Auto) 0.700, Neut % (Auto) 83.2 H, Lymph % (Auto) 8.5 L, [place] % (Auto) 6.6, Eos % (Auto) 0.5, Baso % (Auto) 0.5, Absolute Neuts (auto) 7.1, Total Counted Not Reportable 07/22/18 05:05: PT 16.9 H, INR 1.4, APTT 53.0 H 07/23/18 04:45: Sodium 144, Potassium 4.7, Chloride 110 H, Carbon Dioxide 25.0, Anion Gap 9, BUN 72 H, Creatinine 2.53 H, Est GFR (MDRD) Af Amer 32 L, Est GFR (MDRD) Non-Af 26 L, BUN/Creatinine Ratio 28.5 H, Glucose 180 H, Calcium 9.4 07/23/18 04:45: WBC 7.7, RBC 4.32 L, Hgb 12.5 L, Hct 38.3 L, MCV 88.7, MCH 28.9, MCHC 32.6, RDW 16.6 H, RDW Differential 53.2 H, Plt Count 433, MPV 11.0 Rhythm: EKG: ECHO: Stress Test: Cardiac Cath: PCI: CT Surgery: Holter monitor: EPS: PPM: CXR: Chest CT Scan: Medical Necessity - Tobacco Use Smoking Status: Former smoker Assessment/Plan 1. Non-ST elevation myocardial infarction Patient presents with a non-ST elevation myocardial infarction with chest discomfort which is suggestive of angina. He has had previous bypass surgery and previous stenting. He does have significant renal dysfunction and I have discussed with him about the risks and potential benefits about proceeding with cardiac catheterization. I suggested to him that there may be a possibility of performing it as a staged procedure with minimal contrast agents. He is agreeable to the above. Continue him on his aspirin Clopidogrel Cardiac catheterization demonstrated totally occluded LAD, Minimally diseased right coronary artery Previously stented first obtuse marginal branch with high-grade in-stent stenosis Patient underwent PCI of the LCX and prox LAD. will be discharged later today 2. Congestive heart failure-acute systolic Patient has known hypertensive heart disease with reduced ejection fraction. He does have precarious renal condition and is been followed by the metal sprayer as well. Will remain on the beta-daniel. 3. Hypertension Patient has known hypertensive heart disease which appears appears to be fairly decently controlled Continue current medical therapy 4. Status post coronary artery bypass surgery Patient appears to be having more chest discomfort. His [place] arteries were evaluated in 2016 and he was noted to have a patent [place] to the LAD, patent circumflex artery and right coronary artery. The saphenous vein graft to the obtuse marginal was occluded. These will be reevaluated. 5. Status post permanent pacemaker implantation Patient continues to follow-up regarding the above at the pacemaker clinic. 6. Ischemic cardiomyopathy Patient has a known ischemic cardiomyopathy with an estimated ejection fraction of between 20 and 30%. He has expressed no inclination to have his pacemaker upgraded to a defibrillator. We will continue to follow him as we are doing. Thank you for allowing me to participate in the care of your patient. Please don't hesitate to call if any issues arise
--- NOTE | 2018-07-23 06:58 | PN.CARD_ITS ---
Subjectve: Patient seen and evaluated Objective: Vital Signs Temp Pulse Resp BP Pulse Ox 97.8 F 77 18 152/69 H 93 07/23/18 04:00 07/23/18 06:00 07/23/18 06:00 07/23/18 06:00 07/23/18 06:00 Oxygen Flow Rate (L/min) 2 Oxygen Delivery Method Room Air Weight: 169 lb 8.568 oz Body Mass Index (BMI) 29.5 Intake and Output for Last 24 Hours 07/21/18 07/22/18 07/23/18 23:59 23:59 23:59 Intake Total 240 / 240 1049 / 1049 120 / 120 Output Total 1925 / 1925 200 / 200 Balance 240 / 240 -876 / -876 -80 / -80 General: Awake, Alert, Oriented x 3 HEENT: PERRL, EOMI, Sclera Non Icteric Neck: Supple, Good ROM, No Lymph Node Enlargement Lungs: Clear to auscultation Cardiovascular: Regular Rhythm, Normal S1, Normal S2, No Murmurs, No Rubs, No Gallops Vascular: No Carotid Bruits, Normal Femoral Pulses, Normal Radial Pulses, Normal Dorsalis Pedal Pulse, Normal Posterior Tibial Pulses Abdomen: Bowel Sounds Present, Soft, Non Tender, No HSM, No Organomegaly Extremities: No Cyanosis, No Clubbing, No edema Musculoskeletal: No Erythema Lymphatic: No Lymph Node Enlargement Neurological: No Focal Motor or Sensory Deficit Psych/Mental Status: Appropriate 07/22/18 05:05: WBC 8.5, RBC 4.47 L, Hgb 12.7 L, Hct 39.8 L, MCV 89.0, MCH 28.4, MCHC 31.9 L, RDW 16.6 H, RDW Differential 54.3 H, Plt Count 405, MPV 11.1, Immature Gran % (Auto) 0.700, Neut % (Auto) 83.2 H, Lymph % (Auto) 8.5 L, [place] % (Auto) 6.6, Eos % (Auto) 0.5, Baso % (Auto) 0.5, Absolute Neuts (auto) 7.1, Total Counted Not Reportable 07/22/18 05:05: PT 16.9 H, INR 1.4, APTT 53.0 H 07/23/18 04:45: Sodium 144, Potassium 4.7, Chloride 110 H, Carbon Dioxide 25.0, Anion Gap 9, BUN 72 H, Creatinine 2.53 H, Est GFR (MDRD) Af Amer 32 L, Est GFR (MDRD) Non-Af 26 L, BUN/Creatinine Ratio 28.5 H, Glucose 180 H, Calcium 9.4 07/23/18 04:45: WBC 7.7, RBC 4.32 L, Hgb 12.5 L, Hct 38.3 L, MCV 88.7, MCH 28.9, MCHC 32.6, RDW 16.6 H, RDW Differential 53.2 H, Plt Count 433, MPV 11.0 Rhythm: EKG: ECHO: Stress Test: Cardiac Cath: PCI: CT Surgery: Holter monitor: EPS: PPM: CXR: Chest CT Scan: Medical Necessity - Tobacco Use Smoking Status: Former smoker Assessment/Plan 1. Non-ST elevation myocardial infarction * Patient presents with a non-ST elevation myocardial infarction with chest discomfort which is suggestive of angina. He has had previous bypass surgery and previous stenting. He does have significant renal dysfunction and I have discussed with him about the risks and potential benefits about proceeding with cardiac catheterization. * I suggested to him that there may be a possibility of performing it as a staged procedure with minimal contrast agents. He is agreeable to the above. * Continue him on his aspirin * Clopidogrel * Cardiac catheterization demonstrated totally occluded LAD, * Minimally diseased right coronary artery * Previously stented first obtuse marginal branch with high-grade in-stent stenosis * Patient underwent PCI of the LCX and prox LAD. * will be discharged later today 2. Congestive heart failure-acute systolic * Patient has known hypertensive heart disease with reduced ejection fraction. * He does have precarious renal condition and is been followed by the pumping plant operator as well. * Will remain on the beta-daniel. 3. Hypertension * Patient has known hypertensive heart disease which appears appears to be fairly decently controlled * Continue current medical therapy * 4. Status post coronary artery bypass surgery * Patient appears to be having more chest discomfort. His eagle arteries were evaluated in 2016 and he was noted to have a patent RUSH to the LAD, patent circumflex artery and right coronary artery. The saphenous vein graft to the obtuse marginal was occluded. These will be reevaluated. * 5. Status post permanent pacemaker implantation * Patient continues to follow-up regarding the above at the pacemaker clinic. * * 6. Ischemic cardiomyopathy * Patient has a known ischemic cardiomyopathy with an estimated ejection fraction of between 20 and 30%. * He has expressed no inclination to have his pacemaker upgraded to a defibrillator. We will continue to follow him as we are doing. * Thank you for allowing me to participate in the care of your patient. Please don't hesitate to call if any issues arise
[2018-07-23] MEDS: Ezetimibe 10 MG Tablet PO (08:00)
[2018-07-23] MEDS: Furosemide 40 MG Tablet PO (08:00)
[2018-07-23] MEDS: Carvedilol 3.125 MG TABLET PO (08:00)
[2018-07-23] MEDS: Tamsulosin HCl 0.4 MG Capsule PO (08:00)
--- NOTE | 2018-07-23 09:38 | CRPHASE1_ITS ---
Patient Communication PHII Cardiac Rehab Discussed with Patient:: Yes Guide to Cardiac Rehab Given to Patient:: Yes Cardiac Rehab Facility Choice List Given to Patient:: Yes Choice Program [facility] PHII:: Communication Given to CR, Refer to [facility] Pressure Steamer Tender:: Paula Isaacs Phase II Cardiac Rehab:: Yes Sessions:: 36 sessions - 3 days/wk, 12 weeks Risk Factors/Lifestyle Smoking Status: Former smoker Hx Hypertension: Yes Hx Diabetes Mellitus Type 1: No Hx Diabetes Mellitus Type 2: No Hx Metabolic Disorders: No Hx Dyslipidemia: Yes Hx Obesity: Yes Height: 5 ft 4 in - BMI 29 Post-Menopausal: No Stress: Home/Family Risk Factor for Sedentary Lifestyle: Moderate Risk Family History: Family History (Last Reviewed 07/22/18 @ 04:09 by Leon Armas MD) Father Myocardial infarction Hypertension Heart disease Mother Hypertension Emphysema of lung FH: brain aneurysm Daughter Afib Laboratory Values: Cardiac Rehab Phase I Labs Triglycerides 123 mg/dL (-199) 07/22/18 05:05 Cholesterol 130 mg/dL (200) 07/22/18 05:05 LDL Cholesterol 69 mg/dL (0-130) 07/22/18 05:05 HDL Cholesterol 36 mg/dL (40-) L 07/22/18 05:05 Phase I Education Given On:: Martin, Antiplatelet medication Issues Affecting Care:: None Knowledge of Condition:: Yes Learning Preferences: Verbal, Written Hospital Course Presenting Symptoms:: NON-STEMI Medical/Surgical History AL:: Yes - NON-STEMI / AL 2005 CAD:: Yes Cardiomyopathy:: Yes - ISCHEMIC Diabetes:: No Diabetes Type I:: No Diabetes Type II:: No Hypertension:: Yes Dyslipidemia:: Yes CABG: Yes PTCA:: Yes Discharge/Home/Social Eval Discharge Disposition: Home Cardiac Rehabilitation Info Cardiac Rehabilitation Program Information: Cardiac Rehabilitation is important for patients like you who are recovering from a heart problem. Cardiac rehabilitation programs are recognized as integral to the continued care of the patient with coronary heart disease. The cardiac rehabilitation program is designed to optimize a patient's physical, psychological, and social functioning. Health career development manager work in cardiac rehabilitation programs and assist you with getting the treatments you need to get stronger and healthier - like exercise, healthy eating habits, and medications. Cardiac rehabilitation has been show to help people with heart problems live longer and have better life enjoyment than people who do not go to cardiac rehabilitation. Please contact the Cardiac Rehabilitation Program at [facility] at in two weeks if you have not heard from them.
--- NOTE | 2018-07-23 09:42 | CRPH1.INSTRU ---
General Education CAD and cardiac anatomy and function:: Patient communicates acknowledgment Explanation of diagnoses and procedures:: Patient communicates acknowledgment Sign/Symptoms of [place]:: Patient communicates acknowledgment Antiplatelet therapy: Patient communicates acknowledgment Emergency procedures and activation of EMS: Patient communicates acknowledgment Smoking Recommendations Include:: Previous smoker; encourage continued cessation Nicotine/Smoking Response Code:: Patient communicates acknowledgment Dyslipidemia Patient Dyslipidemia Risk Factors Are:: Total Cholesterol, Triglycerides, HDL, LDL Recommendations Include:: Lipid profile provided, Reviewed NCEP/ATP guidelines, Therapeutic Lifestyle Change dietary guidelines Dyslipidemia Response Code:: Patient communicates acknowledgment Overweight/Obesity Patient Overweight/Obesity Risk Factors Are:: Overweight = 26-29 Recommendations Include:: Weight loss of 5-10%, Reduced calorie diet, Exercise 5-7 times/week Overweight/Obesity:: Patient communicates acknowledgment Hypertension Recommendations Include:: DASH dietary guidelines, Decrease/maintain normal body weight, Moderation of ETOH Hypertension:: Patient communicates acknowledgment Heart Disease Patient Heart Disease Risk Factors Are:: Previous cardiac event Heart Disease Response Code:: Patient communicates acknowledgment Diabetes Patient Diabetes Risk Factors Are:: No documented hx of diabetes Metabolic Syndrome Patient Metabolic Syndrome Risk Factors Are [3 of 5]:: Waist circumference > 35 [female] or 40 [male], Hypertension, Low HDL <40 [male] or < 50 [female] Recommendations Include:: Reinforce compliance to risk factor modifications, Encouraged follow-up with Primary Care Physician Metabolic Syndrome Response Code:: Patient communicates acknowledgment Sedentary Patient Sedentary Risk Factors Are:: Lack of regular exercise Recommendations Include:: Aerobic exercise 5-7 times/week for 20-30 minutes continuously, Benefits of regular exercise, Discussed home walking program, Monitored Outpatient Cardiac Rehab Sedentary Response Code:: Patient communicates acknowledgment Stress Recommendations Include:: Identification of stressors, and assessment of coping skills, Stress management techniques Stress Response Code:: Patient communicates acknowledgment
--- NOTE | 2018-07-23 10:00 | EKG12_ITS ---
Test Reason : AM Blood Pressure : / mmHG Vent. Rate : 070 BPM Atrial Rate : 070 BPM P-R Int : 182 ms QRS Dur : 094 ms QT Int : 414 ms P-R-T Axes : 069 -02 168 degrees QTc Int : 447 ms Electronic atrial pacemaker with occasional PVCs ST & T wave abnormality, consider lateral ischemia Abnormal ECG Confirmed by ISAIAH HOLDER, LISSETTE ([id number]), newspaper or periodical editor OZZIE BARNARD ([id number]) on 07/26/2018 4:31:40 PM Referred By: Leon Armas Confirmed By:LISSETTE COLON MD
--- NOTE | 2018-07-23 10:57 | PCM.DC ---
You will use the following diet at home:: Cardiac - 2500 - 3000 mg sodium daily Your food should be the consistency of: Regular Your liquids should be the consistency of: Regular/Thin Discharge Activity: Return to Normal Activity, - - Monitor weight daily. Check for leg swelling daily. Call your doctor if there is greater than 5 pound change in 24 hour period Allergies/Adverse Reactions: Allergies Penicillins Allergy (Verified 07/21/18 17:44) Anaphylaxis rosuvastatin calcium [From Crestor] Allergy (Verified 07/21/18 17:44) legs hurt [id number]-Aak-[id number] Reductase Inhibitor Allergy (Verified 07/21/18 17:44) body aches amlodipine [From Norvas] Adverse Reaction (Intermediate, Verified 07/21/18 17:44) dizzy Medications to take at Discharge Folic Acid 5 mg PO QHS 03/12/14 Aspirin [Aspirin, Baby] 81 mg PO QHS 04/14/14 Multivitamins,Therapeutic [Multivitamin] 1 tab PO QHS 04/14/14 Ubidecarenone [Q-Sorb Co Q-10] 100 mg PO QHS 02/25/16 nitroglycerin 0.4 mg sublingual tablet 0.4 mg SUBLINGUAL Q5M PRN #25 tab 06/05/17 clopidogrel 75 mg tablet 75 mg PO QHS #90 tab 09/17/17 tamsulosin 0.4 mg capsule 0.4 mg PO DAILY 12/02/17 carvedilol 3.125 mg tablet 3.125 mg PO BID #60 tab 03/24/18 Hydrocodone/Acetaminophen [Hydrocodone-Acetamin 5-325 mg] 1 tab PO BID PRN PRN 07/21/18 Ezetimibe [Zetia] 10 mg PO DAILY #30 tablet 07/23/18 Furosemide [Lasix] 40 mg PO BID@1000,1800 #60 tablet 07/23/18 The following prescriptions were given: Ezetimibe [Zetia] 10 mg PO DAILY #30 tablet Furosemide [Lasix] 40 mg PO BID@1000,1800 #60 tablet Primary Care Physician: Salima Tuttle MD [Primary Care Provider] - Please follow up with your Primary Care Physician in: 1-2 weeks Test Results: Test results from this visit will be discussed in further detail at your follow-up appointment, if applicable. Please Follow Up With: Nuha Rivera DO When: 1-2 weeks Please Follow Up With: David Fagan MD When: As directed Proposed Discharge Date: 07/23/18
--- NOTE | 2018-07-23 11:02 | DCINST_ITS ---
You will use the following diet at home:: Cardiac - 2500 - 3000 mg sodium daily Your food should be the consistency of: Regular Your liquids should be the consistency of: Regular/Thin Discharge Activity: Return to Normal Activity, - - Monitor weight daily. Check for leg swelling daily. Call your doctor if there is greater than 5 pound change in 24 hour period Allergies/Adverse Reactions: Allergies Penicillins Allergy (Verified 07/21/18 17:44) Anaphylaxis rosuvastatin calcium [From Crestor] Allergy (Verified 07/21/18 17:44) legs hurt Jqioivr-Tpy-Icj Reductase Inhibitor Allergy (Verified 07/21/18 17:44) body aches amlodipine [From Norvas] Adverse Reaction (Intermediate, Verified 07/21/18 17:44) dizzy Medications to take at Discharge Folic Acid 5 mg PO QHS 03/12/14 Aspirin [Aspirin, Baby] 81 mg PO QHS 04/14/14 Multivitamins,Therapeutic [Multivitamin] 1 tab PO QHS 04/14/14 Ubidecarenone [Q-Sorb Co Q-10] 100 mg PO QHS 02/25/16 nitroglycerin 0.4 mg sublingual tablet 0.4 mg SUBLINGUAL Q5M PRN #25 tab 06/05/17 clopidogrel 75 mg tablet 75 mg PO QHS #90 tab 09/17/17 tamsulosin 0.4 mg capsule 0.4 mg PO DAILY 12/02/17 carvedilol 3.125 mg tablet 3.125 mg PO BID #60 tab 03/24/18 Hydrocodone/Acetaminophen [Hydrocodone-Acetamin 5-325 mg] 1 tab PO BID PRN PRN 07/21/18 Ezetimibe [Zetia] 10 mg PO DAILY #30 tablet 07/23/18 Furosemide [Lasix] 40 mg PO BID@1000,1800 #60 tablet 07/23/18 The following prescriptions were given: Ezetimibe [Zetia] 10 mg PO DAILY #30 tablet Furosemide [Lasix] 40 mg PO BID@1000,1800 #60 tablet Primary Care Physician: Salima Tuttle MD [Primary Care Provider] - Please follow up with your Primary Care Physician in: 1-2 weeks Test Results: Test results from this visit will be discussed in further detail at your follow- up appointment, if applicable. Please Follow Up With: Nuha Rivera DO When: 1-2 weeks Please Follow Up With: David Fagan MD When: As directed Proposed Discharge Date: 07/23/18
--- NOTE | 2018-07-23 15:05 | PCM.DC.SUM ---
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) History of nephrolithiasis (Chronic) Ischemic cardiomyopathy (Chronic) FDC use of drug (Chronic) Right bundle branch block (Chronic) Complete AV block, 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) HTN (hypertension) (Chronic) HLD (hyperlipidemia) (Chronic) Esophageal reflux (Chronic) Diaphragmatic hernia (Chronic) Coronary atherosclerosis of [place] coronary artery (Chronic) Cardiac pacemaker (Chronic) 12/14 Implantable Loop Recorder; 02/12/09 Removal of Loop Recorder; PPM Implant 05/2014 Ventricular tachycardia (Chronic) S/P PTCA (percutaneous transluminal coronary angioplasty) (Chronic) S/P CABG x 2 (Chronic) CABG with RUSH to LAD, SVG to Cx 06/17/05 Dr. Cotto; 06/25/05, Sternal Dehiscence strnal rewiring & debridement Hospital Course and Treatment Imaging Results: RAD/Chest 1 View (Portable) IMPRESSION: Mild left midlung zone airspace disease. Cardiomegaly. Echo: EF20%, St2 diastolic dysfunction Mild to moderate 1-2+ TVI PASP 38mmHg Consults: [facility] - Cardiology Operations: None Procedures: 2-D Echocardiogram, Cardiac catheterization Summary of Care Provided: Hospital course: The patient is a 83 year old M with pmhx of CAD with prior CABG/stents, hx systolic CHF and ischemic CM, CKDIII-IV, BPH, pacemaker 2/2 hx AV block, who presented to the ER with 2 days of chest pain described as heaviness, SOB, and fatigue. In the ED he had an elevated BNP, elevated troponin. Troponin peaked 2.950. BNP was 1727.2. Chest x-ray showed cardiomegaly and left midlung zone airspace disease. He was felt to have a NSTEMI, and was admitted to the PCU on tele with cardiology consulted. He was taken for a heart catheterization the following day and underwent PCI of the LCx and proximal LAD. He was kept overnight and renal function was monitored as he received IV contrast and has a history of CKD stage III. This remained stable. I advised him to follow-up with his machine operators in the next 1 to 2 weeks and have his BMP checked as an outpatient. He does not tolerate statins and was started on Zetia. Otherwise he was kept on the same cardiac medications including Coreg, clopidogrel, aspirin, with an adjusted dose of Lasix as he did have some evidence of acute heart failure while here. He was discharged home in stable condition. Please follow-up with cardiology as directed, follow-up with your PCP in 1 to 2 weeks. This patient was seen by Darron Null PA-C under the supervision of Doctor Kailee. [] - Physical Exam General: Alert, Oriented x3, Cooperative HEENT: Atraumatic, PERRLA, EOMI, Normocephalic Neck: Supple, No JVD, Negative Carotid Bruits Lungs: Clear to auscultation, Normal air movement Cardiovascular: Regular rate, Murmur Abdomen: Bowel Sounds Present, Soft, Non Tender Extremities: No edema, Capillary Refill Less than 3 Seconds Skin: No rashes, No breakdown Musculoskeletal: No Tenderness to Palpation of Joints or Extremities Neurological: Cranial nerves II-XII grossly intact Psych/Mental Status: Normal Affect, Appropriate Vital Signs Temp Pulse Resp BP Pulse Ox 98.1 F 74 20 H 137/60 H 97 07/23/18 11:42 07/23/18 11:42 07/23/18 11:42 07/23/18 11:42 07/23/18 11:42 Oxygen Flow Rate (L/min) 2 Oxygen Delivery Method Room Air Weight: 169 lb 8.568 oz Body Mass Index (BMI) 29.5 Intake and Output for Last 24 Hours 07/21/18 07/22/18 07/23/18 23:59 23:59 23:59 Intake Total 240 / 240 1049 / 1049 120 / 120 Output Total 1925 / 1925 200 / 200 Balance 240 / 240 -876 / -876 -80 / -80 Laboratory Tests Past 24 Hrs 07/23/18 07/23/18 04:45 04:45 WBC 7.7 RBC 4.32 L Hgb 12.5 L Hct 38.3 L MCV 88.7 MCH 28.9 MCHC 32.6 RDW 16.6 H RDW Differential 53.2 H Plt Count 433 MPV 11.0 Sodium 144 Potassium 4.7 Chloride 110 H Carbon Dioxide 25.0 Anion Gap 9 BUN 72 H Creatinine 2.53 H Estim Creat Clear Calc 18.85 Est GFR (MDRD) Af Amer 32 L Est GFR (MDRD) Non-Af 26 L BUN/Creatinine Ratio 28.5 H Glucose 180 H Calcium 9.4 POC Glucose 07/22/18 17:25 POC Glucose 208 H Discharge Diet: Low fat/ Low Cholesterol, 2000 mg Sodium Diet Discharge Activity: Return to Normal Activity, - - Monitor weight daily. Check for leg swelling daily. Call your doctor if there is greater than 5 pound change in 24 hour period Home Medications: Medications to take at Discharge Folic Acid 5 mg PO QHS 03/12/14 Aspirin [Aspirin, Baby] 81 mg PO QHS 04/14/14 Multivitamins,Therapeutic [Multivitamin] 1 tab PO QHS 04/14/14 Ubidecarenone [Q-Sorb Co Q-10] 100 mg PO QHS 02/25/16 nitroglycerin 0.4 mg sublingual tablet 0.4 mg SUBLINGUAL Q5M PRN #25 tab 06/05/17 clopidogrel 75 mg tablet 75 mg PO QHS #90 tab 09/17/17 tamsulosin 0.4 mg capsule 0.4 mg PO DAILY 12/02/17 carvedilol 3.125 mg tablet 3.125 mg PO BID #60 tab 03/24/18 Hydrocodone/Acetaminophen [Hydrocodone-Acetamin 5-325 mg] 1 tab PO BID PRN PRN 07/21/18 Ezetimibe [Zetia] 10 mg PO DAILY #30 tablet 07/23/18 Furosemide [Lasix] 40 mg PO BID@1000,1800 #60 tablet 07/23/18 Following Prescrptions Were Given to Patient: Ezetimibe [Zetia] 10 mg PO DAILY #30 tablet Furosemide [Lasix] 40 mg PO BID@1000,1800 #60 tablet Primary Care Physician: Salima Tuttle MD [Primary Care Provider] - Please follow up with your Primary Care Physician in: 1-2 weeks Please Follow Up With: Nuha Rivera DO When: 1-2 weeks Please Follow Up With: David Fagan MD When: As directed Disposition: Home Minutes spent on discharge:: 35 Patient Condition:: Stable Medical Necessity - Tobacco Use Smoking Status: Former smoker Meaningful Use Info Meaningful Use Diagnoses (Choose all that apply): AMI, CHF - AMI Aspirin given w/in 24hrs of arrival?: Yes ASA at discharge?: Yes Statins at discharge?: No Reason statins not ordered:: Allergy Errol/ARB at discharge?: No Reason Errol/ARB not ordered:: Worsening renal disease Beta David at discharge?: Yes Done w/ Acute LA measure.: Yes Documented LVEF (%): 20 - CHF ERROL/ARB ordered at discharge?: No Reason ERROL/ARB not ordered?: Worsening renal disease Documented LVEF (%): 20 <Harpreet Dugan - Last Filed: 07/23/18 15:33> Discharge Date and Diagnosis - Secondary Discharge Diagnosis Chronic Problems (Last Reviewed 07/22/18 @ 04:09 by Leon Armas MD) History of ventricular tachycardia (Chronic) Type 2 diabetes mellitus (Chronic) Prostatic enlargement (Chronic) Chronic renal failure, stage 4 (severe) (Chronic) Chronic combined systolic and diastolic CHF (congestive heart failure) (Chronic) History of nephrolithiasis (Chronic) Ischemic cardiomyopathy (Chronic) FDC use of drug (Chronic) Right bundle branch block (Chronic) Complete AV block, 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) HTN (hypertension) (Chronic) HLD (hyperlipidemia) (Chronic) Esophageal reflux (Chronic) Diaphragmatic hernia (Chronic) Coronary atherosclerosis of [place] coronary artery (Chronic) Cardiac pacemaker (Chronic) 12/14 Implantable Loop Recorder; 02/12/09 Removal of Loop Recorder; PPM Implant 05/2014 Ventricular tachycardia (Chronic) S/P PTCA (percutaneous transluminal coronary angioplasty) (Chronic) S/P CABG x 2 (Chronic) CABG with RUSH to LAD, SVG to Cx 06/17/05 Dr. Cotto; 06/25/05, Sternal Dehiscence strnal rewiring & debridement Hospital Course and Treatment Operations: None Procedures: 2-D Echocardiogram, Cardiac catheterization Summary of Care Provided: Patient seen and examined independently. Data reviewed. I agree with the above note by the physician hotel assistant manager. 1. NSTEMI s/p PCI with MARIUM to proximal OM1, LCx, LAD on ASA, Plavix no statins given myalgias follow up with cardiology 2. CKD 4: monitor closely post-cath lasix stopped and currently receiving IVF. Sees Dr. Rivera, if consult necessary Patient asked when his kidney function will return to normal. Informed never, outside a transplant. Most importantly it is to ensure his creatine does not get worse. 3. HFrEF EF 20% clinically not volume overloaded CXR upon my review unremarkable for CHF. lasix stopped [] - Physical Exam General: Alert, Cooperative HEENT: Atraumatic, Normocephalic Lungs: Clear to auscultation, Normal air movement Cardiovascular: Regular rate, Murmur Abdomen: Bowel Sounds Present, Soft, Non Tender, Non-Distended Extremities: No edema, No Calf Tenderness Skin: No rashes, No breakdown Musculoskeletal: No Tenderness to Palpation of Joints or Extremities Psych/Mental Status: Normal Affect, Appropriate Vital Signs Temp Pulse Resp BP Pulse Ox 36.7 C 74 20 H 137/60 H 97 07/23/18 11:42 07/23/18 11:42 07/23/18 11:42 07/23/18 11:42 07/23/18 11:42 Oxygen Flow Rate (L/min) 2 Oxygen Delivery Method Room Air Weight: 76.9 kg Body Mass Index (BMI) 29.5 Intake and Output for Last 24 Hours 07/21/18 07/22/18 07/23/18 23:59 23:59 23:59 Intake Total 240 / 240 1049 / 1049 120 / 120 Output Total 1925 / 1925 200 / 200 Balance 240 / 240 -876 / -876 -80 / -80 Laboratory Tests Past 24 Hrs 07/23/18 07/23/18 04:45 04:45 WBC 7.7 RBC 4.32 L Hgb 12.5 L Hct 38.3 L MCV 88.7 MCH 28.9 MCHC 32.6 RDW 16.6 H RDW Differential 53.2 H Plt Count 433 MPV 11.0 Sodium 144 Potassium 4.7 Chloride 110 H Carbon Dioxide 25.0 Anion Gap 9 BUN 72 H Creatinine 2.53 H Estim Creat Clear Calc 18.85 Est GFR (MDRD) Af Amer 32 L Est GFR (MDRD) Non-Af 26 L BUN/Creatinine Ratio 28.5 H Glucose 180 H Calcium 9.4 POC Glucose 07/22/18 17:25 POC Glucose 208 H Discharge Diet: Low fat/ Low Cholesterol, 2000 mg Sodium Diet Discharge Activity: Return to Normal Activity, - Disposition: Home Patient Condition:: Stable Medical Necessity - Tobacco Use Smoking Status: Former smoker Meaningful Use Info Meaningful Use Diagnoses (Choose all that apply): AMI, CHF - AMI Aspirin given w/in 24hrs of arrival?: Yes ASA at discharge?: Yes Statins at discharge?: No Reason statins not ordered:: Allergy Errol/ARB at discharge?: No Reason Errol/ARB not ordered:: Worsening renal disease Beta David at discharge?: Yes Done w/ Acute LA measure.: Yes Documented LVEF (%): 20 - CHF ERROL/ARB ordered at discharge?: No Reason ERROL/ARB not ordered?: Worsening renal disease Documented LVEF (%): 20 Code Visit Inpatient E&M: 42177 Disch Hosp
--- NOTE | 2018-07-23 15:10 | DS.PCM_ITS ---
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) History of nephrolithiasis (Chronic) Ischemic cardiomyopathy (Chronic) halfway use of drug (Chronic) Right bundle branch block (Chronic) Complete AV block, 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) HTN (hypertension) (Chronic) HLD (hyperlipidemia) (Chronic) Esophageal reflux (Chronic) Diaphragmatic hernia (Chronic) Coronary atherosclerosis of [place] coronary artery (Chronic) Cardiac pacemaker (Chronic) 12/14 Implantable Loop Recorder; 02/12/09 Removal of Loop Recorder; PPM Implant 05/2014 Ventricular tachycardia (Chronic) S/P PTCA (percutaneous transluminal coronary angioplasty) (Chronic) S/P CABG x 2 (Chronic) CABG with RUSH to LAD, SVG to Cx 06/17/05 Dr. Cotto; 06/25/05, Sternal Dehiscence strnal rewiring & debridement Hospital Course and Treatment Imaging Results: RAD/Chest 1 View (Portable) IMPRESSION: Mild left midlung zone airspace disease. Cardiomegaly. Echo: EF20%, St2 diastolic dysfunction Mild to moderate 1-2+ TVI PASP 38mmHg Consults: [facility] - Cardiology Operations: None Procedures: 2-D Echocardiogram, Cardiac catheterization Summary of Care Provided: Hospital course: The patient is a 83 year old M with pmhx of CAD with prior CABG/stents, hx systolic CHF and ischemic CM, CKDIII-IV, BPH, pacemaker 2/2 hx AV block, who presented to the ER with 2 days of chest pain described as heaviness, SOB, and fatigue. In the ED he had an elevated BNP, elevated troponin. Troponin peaked 2.950. BNP was 1727.2. Chest x-ray showed cardiomegaly and left midlung zone airspace disease. He was felt to have a NSTEMI, and was admitted to the PCU on tele with cardiology consulted. He was taken for a heart catheterization the following day and underwent PCI of the LCx and proximal LAD. He was kept overnight and renal function was monitored as he received IV contrast and has a history of CKD stage III. This remained stable. I advised him to follow-up with his tipple worker in the next 1 to 2 weeks and have his BMP checked as an outpatient. He does not tolerate statins and was started on Zetia. Otherwise he was kept on the same cardiac medications including Coreg, clopidogrel, aspirin, with an adjusted dose of Lasix as he did have some evidence of acute heart failure while here. He was discharged home in stable condition. Please follow-up with cardiology as directed, follow-up with your PCP in 1 to 2 weeks. This patient was seen by Darron Null PA-C under the supervision of Doctor Kailee. [] - Physical Exam General: Alert, Oriented x3, Cooperative HEENT: Atraumatic, PERRLA, EOMI, Normocephalic Neck: Supple, No JVD, Negative Carotid Bruits Lungs: Clear to auscultation, Normal air movement Cardiovascular: Regular rate, Murmur Abdomen: Bowel Sounds Present, Soft, Non Tender Extremities: No edema, Capillary Refill Less than 3 Seconds Skin: No rashes, No breakdown Musculoskeletal: No Tenderness to Palpation of Joints or Extremities Neurological: Cranial nerves II-XII grossly intact Psych/Mental Status: Normal Affect, Appropriate Vital Signs Temp Pulse Resp BP Pulse Ox 98.1 F 74 20 H 137/60 H 97 07/23/18 11:42 07/23/18 11:42 07/23/18 11:42 07/23/18 11:42 07/23/18 11:42 Oxygen Flow Rate (L/min) 2 Oxygen Delivery Method Room Air Weight: 169 lb 8.568 oz Body Mass Index (BMI) 29.5 Intake and Output for Last 24 Hours 07/21/18 07/22/18 07/23/18 23:59 23:59 23:59 Intake Total 240 / 240 1049 / 1049 120 / 120 Output Total 1925 / 1925 200 / 200 Balance 240 / 240 -876 / -876 -80 / -80 Laboratory Tests Past 24 Hrs 07/23/18 07/23/18 04:45 04:45 WBC 7.7 RBC 4.32 L Hgb 12.5 L Hct 38.3 L MCV 88.7 MCH 28.9 MCHC 32.6 RDW 16.6 H RDW Differential 53.2 H Plt Count 433 MPV 11.0 Sodium 144 Potassium 4.7 Chloride 110 H Carbon Dioxide 25.0 Anion Gap 9 BUN 72 H Creatinine 2.53 H Estim Creat Clear Calc 18.85 Est GFR (MDRD) Af Amer 32 L Est GFR (MDRD) Non-Af 26 L BUN/Creatinine Ratio 28.5 H Glucose 180 H Calcium 9.4 POC Glucose 07/22/18 17:25 POC Glucose 208 H Discharge Diet: Low fat/ Low Cholesterol, 2000 mg Sodium Diet Discharge Activity: Return to Normal Activity, - - Monitor weight daily. Check for leg swelling daily. Call your doctor if there is greater than 5 pound change in 24 hour period Home Medications: Medications to take at Discharge Folic Acid 5 mg PO QHS 03/12/14 Aspirin [Aspirin, Baby] 81 mg PO QHS 04/14/14 Multivitamins,Therapeutic [Multivitamin] 1 tab PO QHS 04/14/14 Ubidecarenone [Q-Sorb Co Q-10] 100 mg PO QHS 02/25/16 nitroglycerin 0.4 mg sublingual tablet 0.4 mg SUBLINGUAL Q5M PRN #25 tab 06/05/17 clopidogrel 75 mg tablet 75 mg PO QHS #90 tab 09/17/17 tamsulosin 0.4 mg capsule 0.4 mg PO DAILY 12/02/17 carvedilol 3.125 mg tablet 3.125 mg PO BID #60 tab 03/24/18 Hydrocodone/Acetaminophen [Hydrocodone-Acetamin 5-325 mg] 1 tab PO BID PRN PRN 07/21/18 Ezetimibe [Zetia] 10 mg PO DAILY #30 tablet 07/23/18 Furosemide [Lasix] 40 mg PO BID@1000,1800 #60 tablet 07/23/18 Following Prescrptions Were Given to Patient: Ezetimibe [Zetia] 10 mg PO DAILY #30 tablet Furosemide [Lasix] 40 mg PO BID@1000,1800 #60 tablet Primary Care Physician: Salima Tuttle MD [Primary Care Provider] - Please follow up with your Primary Care Physician in: 1-2 weeks Please Follow Up With: Nuha Rivera DO When: 1-2 weeks Please Follow Up With: David Fagan MD When: As directed Disposition: Home Minutes spent on discharge:: 35 Patient Condition:: Stable Medical Necessity - Tobacco Use Smoking Status: Former smoker Meaningful Use Info Meaningful Use Diagnoses (Choose all that apply): AMI, CHF - AMI Aspirin given w/in 24hrs of arrival?: Yes ASA at discharge?: Yes Statins at discharge?: No Reason statins not ordered:: Allergy Errol/ARB at discharge?: No Reason Errol/ARB not ordered:: Worsening renal disease Beta David at discharge?: Yes Done w/ Acute CO measure.: Yes Documented LVEF (%): 20 - CHF ERROL/ARB ordered at discharge?: No Reason ERROL/ARB not ordered?: Worsening renal disease Documented LVEF (%): 20 <Harpreet Dugan - Last Filed: 07/23/18 15:33> Discharge Date and Diagnosis - Secondary Discharge Diagnosis Chronic Problems (Last Reviewed 07/22/18 @ 04:09 by Leon Armas MD) History of ventricular tachycardia (Chronic) Type 2 diabetes mellitus (Chronic) Prostatic enlargement (Chronic) Chronic renal failure, stage 4 (severe) (Chronic) Chronic combined systolic and diastolic CHF (congestive heart failure) (Chronic) History of nephrolithiasis (Chronic) Ischemic cardiomyopathy (Chronic) halfway use of drug (Chronic) Right bundle branch block (Chronic) Complete AV block, 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) HTN (hypertension) (Chronic) HLD (hyperlipidemia) (Chronic) Esophageal reflux (Chronic) Diaphragmatic hernia (Chronic) Coronary atherosclerosis of [place] coronary artery (Chronic) Cardiac pacemaker (Chronic) 12/14 Implantable Loop Recorder; 02/12/09 Removal of Loop Recorder; PPM Implant 05/2014 Ventricular tachycardia (Chronic) S/P PTCA (percutaneous transluminal coronary angioplasty) (Chronic) S/P CABG x 2 (Chronic) CABG with RUSH to LAD, SVG to Cx 06/17/05 Dr. Cotto; 06/25/05, Sternal Dehiscence strnal rewiring & debridement Hospital Course and Treatment Operations: None Procedures: 2-D Echocardiogram, Cardiac catheterization Summary of Care Provided: Patient seen and examined independently. Data reviewed. I agree with the above note by the physician embalmer assistant. 1. NSTEMI * s/p PCI with MARIUM to proximal OM1, LCx, LAD * on ASA, Plavix * no statins given myalgias * follow up with cardiology 2. CKD 4: * monitor closely post-cath * lasix stopped and currently receiving IVF. * Sees Dr. Rivera, if consult necessary * Patient asked when his kidney function will return to normal. Informed never, outside a transplant. Most importantly it is to ensure his creatine does not get worse. 3. HFrEF * EF 20% * clinically not volume overloaded * CXR upon my review unremarkable for CHF. * lasix stopped [] - Physical Exam General: Alert, Cooperative HEENT: Atraumatic, Normocephalic Lungs: Clear to auscultation, Normal air movement Cardiovascular: Regular rate, Murmur Abdomen: Bowel Sounds Present, Soft, Non Tender, Non-Distended Extremities: No edema, No Calf Tenderness Skin: No rashes, No breakdown Musculoskeletal: No Tenderness to Palpation of Joints or Extremities Psych/Mental Status: Normal Affect, Appropriate Vital Signs Temp Pulse Resp BP Pulse Ox 36.7 C 74 20 H 137/60 H 97 07/23/18 11:42 07/23/18 11:42 07/23/18 11:42 07/23/18 11:42 07/23/18 11:42 Oxygen Flow Rate (L/min) 2 Oxygen Delivery Method Room Air Weight: 76.9 kg Body Mass Index (BMI) 29.5 Intake and Output for Last 24 Hours 07/21/18 07/22/18 07/23/18 23:59 23:59 23:59 Intake Total 240 / 240 1049 / 1049 120 / 120 Output Total 1925 / 1925 200 / 200 Balance 240 / 240 -876 / -876 -80 / -80 Laboratory Tests Past 24 Hrs 07/23/18 07/23/18 04:45 04:45 WBC 7.7 RBC 4.32 L Hgb 12.5 L Hct 38.3 L MCV 88.7 MCH 28.9 MCHC 32.6 RDW 16.6 H RDW Differential 53.2 H Plt Count 433 MPV 11.0 Sodium 144 Potassium 4.7 Chloride 110 H Carbon Dioxide 25.0 Anion Gap 9 BUN 72 H Creatinine 2.53 H Estim Creat Clear Calc 18.85 Est GFR (MDRD) Af Amer 32 L Est GFR (MDRD) Non-Af 26 L BUN/Creatinine Ratio 28.5 H Glucose 180 H Calcium 9.4 POC Glucose 07/22/18 17:25 POC Glucose 208 H Discharge Diet: Low fat/ Low Cholesterol, 2000 mg Sodium Diet Discharge Activity: Return to Normal Activity, - Disposition: Home Patient Condition:: Stable Medical Necessity - Tobacco Use Smoking Status: Former smoker Meaningful Use Info Meaningful Use Diagnoses (Choose all that apply): AMI, CHF - AMI Aspirin given w/in 24hrs of arrival?: Yes ASA at discharge?: Yes Statins at discharge?: No Reason statins not ordered:: Allergy Errol/ARB at discharge?: No Reason Errol/ARB not ordered:: Worsening renal disease Beta David at discharge?: Yes Done w/ Acute CO measure.: Yes Documented LVEF (%): 20 - CHF ERROL/ARB ordered at discharge?: No Reason ERROL/ARB not ordered?: Worsening renal disease Documented LVEF (%): 20 Code Visit Inpatient E&M: [id number] Disch Hosp
--- NOTE | 2018-07-26 13:41 | CASEMGMT ---
RN TINY DC PHONE CALL DC DATE: 07/23/18 DC Disposition: Home LACE/STRATA: 11/09 Intro role of CM to patient's who stated no questions re: f/u, prescriptions or instructions. No care improvement suggestions discussed as seemed to want to end call. Carrie BOBBYN RN ACM
== END 2018-07-23 11:55 | disposition home or self-care (01) | DRG 246 ==
LOC: ED 20:47 → PCU 20:56 → ICU 07-23 08:06
PROVIDERS: Internal Medicine Cardiovascular Disease; Physician Assistant; Admitting Provider Hospitalist; Emergency Provider Emergency Medicine; Family Provider Family Medicine; PCP Family Medicine; Referring Provider Hospitalist
DX: I21.4 Non-ST elevation (NSTEMI) myocardial infarction (principal); I50.43 Acute on chronic combined systolic (congestive) and diastolic (congestive) heart failure; I13.0 Hypertensive heart and chronic kidney disease with heart failure and stage 1 through stage 4 chronic kidney disease, or unspecified chronic kidney disease; N18.4 Chronic kidney disease, stage 4 (severe); T82.855A Stenosis of coronary artery stent, initial encounter; I44.2 Atrioventricular block, complete; I25.10 Atherosclerotic heart disease of native coronary artery without angina pectoris; Z79.82 Long term (current) use of aspirin; Z87.891 Personal history of nicotine dependence; Z79.02 Long term (current) use of antithrombotics/antiplatelets; Z95.5 Presence of coronary angioplasty implant and graft; Z95.1 Presence of aortocoronary bypass graft; Z79.899 Other long term (current) drug therapy; Z95.0 Presence of cardiac pacemaker; I25.5 Ischemic cardiomyopathy; N40.0 Benign prostatic hyperplasia without lower urinary tract symptoms; E11.22 Type 2 diabetes mellitus with diabetic chronic kidney disease; E78.5 Hyperlipidemia, unspecified; K21.9 Gastro-esophageal reflux disease without esophagitis; I25.2 Old myocardial infarction; K44.9 Diaphragmatic hernia without obstruction or gangrene
CPT/HCPCS: 36415; 70450; 71045; 80048; 80061; 82962; 83880; 84484; 85025; 85027; 85347; 85610; 85730; 92928; 92929; 93005; 93306; 93454; 99152; 99153; 99285; J7030; Q9957; Q9967; A4216; C1725; C1769; C1874; C1887; C1894; C8929; C9600; C9601; J1940

== ENCOUNTER → 2018-08-18 | Outpatient (CLI) | payer MEDICARE, SELFPAY ==
[2018-07-21 21:48] VITALS: BMI 29.5
[2018-08-18 10:01] LABS: Anion Gap 4 (5-15); BUN 61 mg/dL (7-18); BUN/Creat Ratio 21.6 RATIO (10-20); Calcium,Total 9.5 mg/dL (8.5-10.1); Chloride 103 mmol/L (98-107); Creatinine, Serum 2.83 mg/dL (0.70-1.30); EST Glomerular Filtration Rate 23 mL/min (>60); Est Glom Filt Rate - Afr Amer 28 mL/min (>60); Glucose 215 mg/dL (74-106); Potassium 4.1 mmol/L (3.5-5.1); Sodium Level 139 mmol/L (136-145)
== END | disposition home or self-care (01) ==
LOC: LAB 08:26
PROVIDERS: Family Provider Family Medicine; PCP Family Medicine; Referring Provider Physician Assistant Medical; Visit Provider Physician Assistant Medical
DX: N18.4 Chronic kidney disease, stage 4 (severe) (principal)
CPT/HCPCS: 36415; 80048

== ENCOUNTER → 2018-08-25 | Outpatient (CLI) | payer MEDICARE, SELFPAY ==
[2018-07-21 21:48] VITALS: BMI 29.5
[2018-08-25 13:02] LABS: Hemoglobin A1c 5.9 % (4.2-6.3)
[2018-08-25 13:08] LABS: Absolute Neutrophil Count 4.2 X10^3/uL (2.0-7.7); Basophil# 0.03 X10^3/uL; Basophil% 0.5 % (0-1); Eosinophil# 0.07 X10^3/uL; Eosinophils% 1.2 % (0-5); Hematocrit 34.7 % (40-54); Hemoglobin 11.2 g/dl (13.0-16.5); Mean Corp Hgb Conc 32.3 g/gl (32-36); Mean Corpuscular Hgb 29.9 pg (27.0-32.0); Mean Corpuscular Volume 92.5 fL (80-94); Mean Platelet Vol. 10.1 fl (6.2-12.0); Monocyte# 0.37 X10^3/uL; Monocyte% 6.6 % (0-10); Neutrophil # 4.22 X10^3/uL (2.7-7.7); Neutrophil % 75.3 % (47-70); POSITIVE COUNT NO; POSITIVE DIFFERENTIAL NO; POSITIVE MORPHOLOGY NO; Platelet Count 308 K/mm3 (150-450); RBC Distribution Width CV 17.5 % (11.6-14.6); RBC Distribution Width SD 58.1 fl (35.1-43.9); Red Blood Count 3.75 M/mm3 (4.6-6.2); White Blood Count 5.6 K/mm3 (4.4-11.0)
[2018-08-25 13:14] LABS: AST(SGOT) 10 U/L (15-37); Alanine Aminotransfer ALT/SGPT 19 U/L (16-61); Albumin, Serum 3.7 g/dL (3.2-5.0); Alkaline Phosphatase 46 U/L (45-117); Anion Gap 10 (5-15); BUN 60 mg/dL (7-18); BUN/Creat Ratio 19.9 RATIO (10-20); Bilirubin, Direct 0.39 mg/dL (0.00-0.30); Calcium,Total 9.5 mg/dL (8.5-10.1); Chloride 104 mmol/L (98-107); Creatinine, Serum 3.02 mg/dL (0.70-1.30); EST Glomerular Filtration Rate 21 mL/min (>60); Est Glom Filt Rate - Afr Amer 26 mL/min (>60); Globulin 2.5 g/dL (2.2-4.2); Glucose 191 mg/dL (74-106); Potassium 4.6 mmol/L (3.5-5.1); Protein, Total 6.2 g/dL (6.4-8.2); Sodium Level 144 mmol/L (136-145)
== END | disposition home or self-care (01) ==
LOC: MFPLAB 09:55
PROVIDERS: Family Provider Family Medicine; PCP Family Medicine; Referring Provider Family Medicine; Visit Provider Family Medicine
DX: E11.8 Type 2 diabetes mellitus with unspecified complications (principal); I25.10 Atherosclerotic heart disease of native coronary artery without angina pectoris
CPT/HCPCS: 36415; 80048; 80076; 83036; 85025

== ENCOUNTER → 2018-09-01 | Outpatient (CLI) | payer MEDICARE, SELFPAY ==
[2018-09-01 15:21] VITALS: BMI 29.5
[2018-09-01 17:18] LABS: Absolute Lymphocyte Count 1.07 X10^3/ul (0.83-4.51); Absolute Neutrophil Count 4.5 X10^3/uL (2.0-7.7); Basophil# 0.02 X10^3/uL; Basophil% 0.3 % (0-1); Eosinophil# 0.11 X10^3/uL; Eosinophils% 1.8 % (0-5); Hematocrit 37.3 % (40-54); Hemoglobin 12.2 g/dl (13.0-16.5); Lymphocyte # 1.07 X10^3/ul (4.0); Lymphocyte % 17.3 % (19-41); Mean Corp Hgb Conc 32.7 g/gl (32-36); Mean Corpuscular Hgb 29.9 pg (27.0-32.0); Mean Corpuscular Volume 91.4 fL (80-94); Mean Platelet Vol. 10.1 fl (6.2-12.0); Monocyte# 0.51 X10^3/uL; Monocyte% 8.2 % (0-10); Neutrophil # 4.46 X10^3/uL (2.7-7.7); Neutrophil % 71.9 % (47-70); Platelet Count 357 K/mm3 (150-450); RBC Distribution Width CV 17.4 % (11.6-14.6); RBC Distribution Width SD 58.3 fl (35.1-43.9); Red Blood Count 4.08 M/mm3 (4.6-6.2); White Blood Count 6.2 K/mm3 (4.4-11.0)
[2018-09-01 17:19] LABS: POSITIVE COUNT NO; POSITIVE DIFFERENTIAL NO; POSITIVE MORPHOLOGY NO
[2018-09-01 17:46] LABS: AST(SGOT) 11 U/L (15-37); Alanine Aminotransfer ALT/SGPT 20 U/L (16-61); Albumin, Serum 4.3 g/dL (3.2-5.0); Alkaline Phosphatase 86 U/L (45-117); Anion Gap 4 (5-15); BUN 51 mg/dL (7-18); BUN/Creat Ratio 18.9 RATIO (10-20); Bilirubin, Direct 0.33 mg/dL (0.00-0.30); Calcium,Total 9.8 mg/dL (8.5-10.1); Chloride 104 mmol/L (98-107); EST Glomerular Filtration Rate 24 mL/min (>60); Est Glom Filt Rate - Afr Amer 29 mL/min (>60); Glucose 142 mg/dL (74-106); Hemoglobin A1c 5.9 % (4.2-6.3); Potassium 4.1 mmol/L (3.5-5.1); Protein, Total 7.3 g/dL (6.4-8.2); Sodium Level 138 mmol/L (136-145)
== END | disposition home or self-care (01) ==
LOC: LAB 15:40
PROVIDERS: Family Provider Family Medicine; PCP Family Medicine; Referring Provider Family Medicine; Visit Provider Family Medicine
DX: E11.8 Type 2 diabetes mellitus with unspecified complications (principal); I25.10 Atherosclerotic heart disease of native coronary artery without angina pectoris
CPT/HCPCS: 36415; 80048; 80076; 83036; 85025

== ENCOUNTER → 2018-10-16 10:00 | Outpatient (CLI) | payer MEDICARE, SELFPAY ==
[2018-09-01 15:21] VITALS: BMI 29.5
[2018-10-16 11:05] LABS: Albumin, Serum 3.8 g/dL (3.2-5.0); BUN 37 mg/dL (7-18); BUN/Creat Ratio 14.1 RATIO (10-20); Calcium,Total 9.1 mg/dL (8.5-10.1); Chloride 108 mmol/L (98-107); Creatinine, Serum 2.62 mg/dL (0.70-1.30); EST Glomerular Filtration Rate 25 mL/min (>60); Est Glom Filt Rate - Afr Amer 30 mL/min (>60); Glucose 185 mg/dL (74-106); Phosphorus 3.4 mg/dL (2.5-4.9); Potassium 4.9 mmol/L (3.5-5.1); Sodium Level 140 mmol/L (136-145)
== END ==
PROVIDERS: Family Provider Family Medicine; PCP Family Medicine; Referring Provider Internal Medicine Nephrology; Visit Provider Internal Medicine Nephrology
DX: N18.4 Chronic kidney disease, stage 4 (severe) (principal)
CPT/HCPCS: 36415; 80069

== ENCOUNTER → 2018-12-07 | Outpatient (CLI) | payer MEDICARE, SELFPAY ==
[2018-11-17 08:24] VITALS: BMI 26.1
--- NOTE | 2018-12-07 14:57 | ECHOCS_ITS ---
Reason For Study: DYSPNEA/SOB Procedure This was a 2D Doppler, Color Flow transthoracic echocardiogram. The study was technically difficult. Contrast injection was performed. Exam performed in department. Left Ventricle Severely dilated left ventricle. The estimated ejection fraction is 20 %. Severe global left ventricular systolic dysfunction. Stage 3 diastolic dysfunction. There is severe global hypokinesis of the left ventricle. Right Ventricle Normal RV size. ICD or pacer leads identified within the right ventricle. Normal systolic function. Atria Normal left atrium. Normal right atrium. Mitral Valve Mitral valve not well visualized. Tricuspid Valve The tricuspid valve is not well visualized. Aortic Valve The aortic valve is not well visualized. Pulmonic Valve The pulmonic valve is not well visualized. Great Vessels Normal aortic root. The pulmonary artery is normal size. Normal inferior vena cava. Pericardium/Pleural No pericardial effusion. Medication 22 gauge I.V. with prn adaptor inserted into left arm. Diluted definity 5.0ml given slow IV push to enhance endocardial definition. MMode/2D Measurements & Calculations LVIDd: 6.7 cm IVSd: 0.94 cm Ao root diam: 3.5 cm LVIDs: 5.8 cm LVPWd: 0.82 cm RVDd: 2.8 cm FS: 12.9 % LAV(MOD-bp): 44.0 ml LA A4 area: 16.3 cm2 LA dimension(2D): 3.9 cm LAV(MOD-bp) Indexed: 23.8 ml/m2 LAV(MOD-sp2): 42.1 ml LAV(MOD-sp4): 46.0 ml RA A4 area: 14.0 cm2 Time Measurements MV dec time: 0.09 sec Doppler Measurements & Calculations MV E max derrick: 71.1 cm/sec Lat Peak E' Derrick: 2.8 cm/sec Med Peak E' Derrick: 2.8 cm/sec MV A max derrick: 136.6 cm/sec E/E' lat: 25.6 E/E' med: 25.0 MV E/A: 0.52 Ao V2 max: 152.5 cm/sec LV V1 max: 65.6 cm/sec PA V2 max: 81.0 cm/sec Ao max P.3 mmHg LV V1 max P.7 mmHg TR max derrick: 230.1 cm/sec TR max P.2 mmHg Interpretation Summary Severely dilated left ventricle. The estimated ejection fraction is 20 %. Severe global left ventricular systolic dysfunction. Stage 3 diastolic dysfunction. Contrast injection was performed. Compared to previous study, the left ventricular systolic function is the same.. Ordering Physician: Clari Jameson Referring Physician: Salima Tuttle Performed By: Brooke Razo RDCS, RVT
== END | disposition home or self-care (01) ==
LOC: CVS 14:55
PROVIDERS: Family Provider Family Medicine; PCP Family Medicine; Referring Provider Physician Assistant Medical; Visit Provider Physician Assistant Medical
DX: I25.810 Atherosclerosis of coronary artery bypass graft(s) without angina pectoris (principal)
CPT/HCPCS: 93306; Q9957; A4216; C8929

== ENCOUNTER 2019-02-14 10:36 | Inpatient (IN) | payer MEDICARE, SELFPAY ==
[2019-02-11 08:27] VITALS: BMI 27.3
[2019-02-14] VITALS (15 sets, daily range): BP systolic 132–164; BP diastolic 32–95; PULSE 73–142; RESP 19–26; TEMP 36.4–37.6; O2SAT 93–96; BMI 25.7; BMI 27.7
--- NOTE | 2019-02-14 11:01 | RAD_ITS ---
STUDY: X-RAY CHEST REASON FOR EXAM: Male, 83 years old. Syncope TECHNIQUE: Single AP portable view of the chest. COMPARISON: 07/21/2018 FINDINGS: Status post median sternotomy/CABG. Left-sided dual lead percutaneous pacemaker. There is persistent linear scarring or atelectasis in the left mid and lower lung field. The lungs are otherwise clear. There is no demonstrated pleural abnormality. Normal size heart. Normal mediastinum and jose antonio. Normal visualized pulmonary arteries. There is atherosclerotic tortuosity of the aortic arch and descending thoracic aorta. Normal visualized thoracic spine. Normal visualized ribs, clavicles, and shoulders. There is no demonstrated abnormality of the visualized soft tissue structures of the upper abdomen. RAD/Chest 1 View (Portable) IMPRESSION: Persistent linear scarring or atelectasis in the left mid and lower lung field. Lungs are otherwise clear. Electronically Signed: Kamran Tafoya, at 13:41 EST Tel , Service support ,
--- NOTE | 2019-02-14 11:01 | EKG12_ITS ---
Test Reason : SYNCOPE Blood Pressure : / mmHG Vent. Rate : 079 BPM Atrial Rate : 079 BPM P-R Int : 178 ms QRS Dur : 098 ms QT Int : 424 ms P-R-T Axes : 062 -26 154 degrees QTc Int : 486 ms Normal sinus rhythm T wave abnormality, consider lateral ischemia Prolonged QT Abnormal ECG Confirmed by ROSARIO HOLDER, COURTNEY ([id number]), international editorial producer OZZIE BARNARD ([id number]) on 02/16/2019 11:42:54 AM Referred By: ANTHONY Confirmed By:COURTNEY PONCE MD
--- NOTE | 2019-02-14 11:02 | CT_ITS ---
We are attempting to reach an attending provider to discuss findings. An addendum with communication details will be sent when the communication is complete. STUDY: CT BRAIN WITHOUT CONTRAST REASON FOR EXAM: Male, 83 years old. Syncope and confusion RADIATION DOSAGE (If Supplied By Facility): CTDIvol = ( 44.99 ) mGy, DLP = ( 863.60 ) mGycm TECHNIQUE: Transaxial CT imaging of the brain was performed without administration of intravenous contrast material. Individualized dose optimization techniques were used for this CT. COMPARISON: CT head 07/22/2018. FINDINGS: There is loss of the zuniga-white matter differentiation in the lateral right frontal lobe, corresponding to right MCA vascular territory. No hyperdense MCA sign is seen. Normal soft tissue structures. Normal calvarium. There is moderate cerebral atrophy with widening of the extra-axial spaces and ventricular dilatation. There are areas of decreased attenuation within the white matter tracts of the supratentorial brain, consistent with microvascular disease changes. Normal basal ganglia and thalami. Normal brainstem. Normal cerebellum. There is no intracranial hemorrhage. Normal visualized paranasal sinuses. CT/Brain/Head without Contrast IMPRESSION: There is loss of the zuniga-white matter differentiation in the lateral right frontal lobe suspicious for acute infarct, corresponding to right MCA vascular territory. Electronically Signed: Kamran Tafoya, at 13:34 EST Tel , Service support ,
--- NOTE | 2019-02-14 11:04 | ED.DCSUM_ITS ---
- ER Visit Summary Date of Service: 02/14/19 Chief Complaint: Syncope with fall History of Present Illness: The patient is a 83 M past medical history of diabetes, hypertension, renal insufficiency, cardiac stents and a pacemaker. Patient states he was in the bathroom today and felt lightheaded and He remembers he woke up on the floor. Denies any injuries. He is on Plavix and aspirin. Denies any headache or neck pain. Called his she came to the bathroom today was somewhat confused and he brought in the emergency department. He has not been recently ill. No vomiting or diarrhea. No melena. No fever or chills. He has never passed out before. He typically does not fall. He denies any hip or back pain. Physical Examination: Older male no acute distress vital signs are stable afebrile. Family is at bedside. HEENT exam pupils round react to light. No signs of trauma to his face or scalp. Nontender. No hematoma. C-spine nontender. Trachea midline. Lungs clear to auscultation bilaterally. Heart regular rate and rhythm no murmur. Chest wall nontender. Abdomen soft nontender. Normal bowel sounds no peritoneal signs. Girdle intact. Patient moving all 4 extremities. Neurovascular intact. Nontender. No edema. No deformity. Neurologically is awake and alert. He knows day, month, year. He knows the president. He is speaking normally. No slurred speech. Neurologic exam normal. NIH is 0. Normal motor strength. Test Results: CBC shows a white count of 6. Hemoglobin 12. Chemistries show a BUN of 39 creatinine 2.9 he is a history of chronic renal insufficiency. Troponin 0 0.117 he has had elevated troponins before the past.. Chest x-ray shows chronic cardiomegaly. Head scan read by the radiologist on the frontal lobe abnormality but no obvious stroke but no obvious bleed. They suggested an MRI but the patient has a pacemaker that is not MRI compatible. Emergency Department Course and Treatment: Suspected syncopal episode unwitnessed in the bathroom. Fell on blood thinners. CAT scan labs to be obtained. He will most likely need to be admitted. Treatment Plan: Exam patient is doing well with no changes 1345. The hospitalist is in the room talking to the patient and family. There is no acute neurological findings at this time. Seems like he has been having tremors at home and intermittent episodes of confusion but these are over the last several weeks to months. Disposition: Admission Impression: Acute syncope Fall Anticoagulated on Plavix and aspirin History of a pacemaker History of diabetes This note was generated with [employer] dictation software. It may contain incorrect words, spelling, and punctuation that were not noted in review of the chart prior to signing ED Disposition - Plan for ED Patient: Referrals: Salmia Tuttle MD [Primary Care Provider] -
[2019-02-14 11:28] LABS: Hematocrit 38.4 % (40-54); Hemoglobin 12.2 g/dL (13.0-16.5); Mean Corp Hgb Conc 31.8 g/dL (32-36); Mean Corpuscular Hgb 29.3 pg (27.0-32.0); Mean Corpuscular Volume 92.1 fL (80-94); Mean Platelet Vol. 10.3 fl (6.2-12.0); POSITIVE COUNT YES; POSITIVE MORPHOLOGY YES; Platelet Count 396 K/mm3 (150-450); RBC Distribution Width CV 15.8 % (11.6-14.6); RBC Distribution Width SD 53.1 fl (35.1-43.9); Red Blood Count 4.17 M/mm3 (4.6-6.2); White Blood Count 6.3 K/mm3 (4.4-11.0)
[2019-02-14 11:35] LABS: Differential Indicated MANUAL DIFF
[2019-02-14 11:37] LABS: Anion Gap 5 (5-15); BUN 39 mg/dL (7-18); BUN/Creat Ratio 13.4 RATIO (10-20); Calcium,Total 9.4 mg/dL (8.5-10.1); Chloride 108 mmol/L (98-107); EST Glomerular Filtration Rate 22 mL/min (>60); Est Glom Filt Rate - Afr Amer 27 mL/min (>60); Estimated Creatinine Clearance 20.92 ml/min; Glucose 170 mg/dL (74-106); Potassium 4.2 mmol/L (3.5-5.1); Sodium Level 142 mmol/L (136-145)
[2019-02-14 11:58] LABS: Blast 1 % (0-0); Lymphocyte 13 % (19-41); Monocyte 1 % (0-10); Myelocyte 3 (0-0); Neutrophil-Band 1 % (0-5); Neutrophil-Segmented 81 % (47-70); Total Cells Counted 100 (MANUAL DIFF)
[2019-02-14 11:59] LABS: Platelet Estimate ADEQUATE (ADEQ); Red Cell Morphology NORM C+C NORMAL (NORM C&C)
[2019-02-14 12:00] LABS: Absolute Neutrophil Count 5.1 X10^3/uL (2.0-7.7)
[2019-02-14 12:01] LABS: Absolute Lymphocyte Count 0.82 X10^3/uL (0.83-4.51)
--- NOTE | 2019-02-14 13:27 | HP.PCM_ITS ---
Problem List (1) Atherosclerosis of coronary artery bypass graft without angina pectoris Status: Chronic Qualifiers: [place] vs. transplanted heart: [place] heart Qualified Code(s): I25.810 - Atherosclerosis of coronary artery bypass graft(s) without angina pectoris Comment: PCI-MARIUM Prox OM1 w/ 2.5 x 12 mm Elunir, MARIUM-Prox LCx w/ 2.5 x 12 mm Elunir URM-XKE-Akvh LAD w/ 2.5 x 8 mm Resolute Integrity 07/22/18 MARIUM-Prox OM1 w/ 2.75 x 12 mm Xience Alpine Stent 04/15/2014 YDV-KNI-Ubiz LAD w/ 3.5 x 12 mm Xience Xpedition and MARIUM-Prox LCx w/ 3.5 x 8 mm Xience Xpedition 08/11/2013 YBE-UVC-Kgox Main w/ 3.0 x 16 mm Taxus Stent and MARIUM- Prox OM1 w/ 2.5 x 16 mm Taxus 11/20/2005; CABG x 2: RUSH-LAD, SVG-LCx 06/17/05 (2) Presence of permanent cardiac pacemaker Status: Chronic (3) Essential (primary) hypertension Status: Chronic (4) History of ventricular tachycardia Status: Chronic (5) Chronic renal failure, stage 4 (severe) Status: Chronic (6) HLD (hyperlipidemia) Status: Chronic Qualifiers: Hyperlipidemia type: pure hypercholesterolemia Qualified Code(s): E78.00 - Pure hypercholesterolemia, unspecified History of Present Illness Date of Admission: 02/14/19 Chief Complaint: Altered mental status, syncope - 1 day The patient is a 83 year old M with past medical history of CAD status post CABG and stent, CKD stage III, history of pacemaker, chronic systolic CHF with EF of 20% in after syncopal episode. He was in his usual state of health and woke up this morning to go to use the bathroom. He denied any specific symptoms as he cannot remember. He probably fell in the bathroom around 330 per history. He called out to his around 6:00 and had been lying down for more than 3 hours. Patient was helped up to bed and he slept for couple of hours. Her daughter, when he got up, he appeared confused and could not put on his words. The EMS was called around 1020HRS because patient was still not feeling well. He says that he felt very weak. His systolic blood pressure was 140, heart rate was 72, blood sugar was 217, SPO2 was 96% on room air. He denies any fever or chills or recent illness. According to his daughter, patient recently had changes to his medications with his isosorbide increased to 60 mg daily as well as his Lasix. In the emergency department, his temperature was 97.6F, heart rate 79, blood pressure 137/71, he was not orthostatic. Admitting blood work showed WBC count of 6.3, hemoglobin 12.2, platelet count of 396, blood cells of 1%. His BMP showed creatinine of 2.9 which is close to his baseline as well as BUN of 39, his troponin was elevated at 0.117. KG was unchanged from previous and showed chronic T wave inversions in the anterior lateral leads -lead I, aVL, V4, V5, V6. Chest x-ray showed atelectasis in the left mid and lower lung oneal. CT scan of the brain was read as suspicious for acute infarct corresponding to the right MCA vascular territory. 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 He does not walk with a cane. He is usually alert oriented x3. No problems with his memory noted by family. Past Medical History Past Medical History (Chronic Problems): Chronic Problems (Last Reviewed 02/11/19 @ 08:54 by David Fagan MD) Atherosclerosis of coronary artery bypass graft without angina pectoris (Chronic) PCI-MARIUM Prox OM1 w/ 2.5 x 12 mm Elunir, MARIUM-Prox LCx w/ 2.5 x 12 mm Elunir UZF-UKV-Toek LAD w/ 2.5 x 8 mm Resolute Integrity 07/22/18 MARIUM-Prox OM1 w/ 2.75 x 12 mm Xience Alpine Stent 04/15/2014 AWC-JOW-Ebml LAD w/ 3.5 x 12 mm Xience Xpedition and MARIUM-Prox LCx w/ 3.5 x 8 mm Xience Xpedition 08/11/2013 EDN-AFM-Embi Main w/ 3.0 x 16 mm Taxus Stent and MARIUM-Prox OM1 w/ 2.5 x 16 mm Taxus 11/20/2005; CABG x 2: RUSH-LAD, SVG-LCx 06/17/05 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) Essential (primary) hypertension (Chronic) Acute on chronic systolic CHF (congestive heart failure) (Chronic) History of ventricular tachycardia (Chronic) Chronic renal failure, stage 4 (severe) (Chronic) Ischemic cardiomyopathy (Chronic) Right bundle branch block (Chronic) Complete AV block, 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) HLD (hyperlipidemia) (Chronic) Medical History: Medical History (Last Reviewed 02/11/19 @ 08:54 by David Fagan MD) Atherosclerosis of coronary artery bypass graft without angina pectoris (Chronic) I25.810 PCI-MARIUM Prox OM1 w/ 2.5 x 12 mm Elunir, MARIUM-Prox LCx w/ 2.5 x 12 mm Elunir GEZ-ESR-Ppnj LAD w/ 2.5 x 8 mm Resolute Integrity 07/22/18 MARIUM-Prox OM1 w/ 2.75 x 12 mm Xience Alpine Stent 04/15/2014 BAU-HMJ-Ttax LAD w/ 3.5 x 12 mm Xience Xpedition and MARIUM-Prox LCx w/ 3.5 x 8 mm Xience Xpedition 08/11/2013 XXE-OCM-Gseb Main w/ 3.0 x 16 mm Taxus Stent and MARIUM-Prox OM1 w/ 2.5 x 16 mm Taxus 11/20/2005; CABG x 2: RUSH-LAD, SVG-LCx 06/17/05 Essential (primary) hypertension (Chronic) I10 Acute on chronic systolic CHF (congestive heart failure) (Chronic) I50.23 History of ventricular tachycardia (Chronic) Z86.79 Chronic renal failure, stage 4 (severe) (Chronic) N18.4 Ischemic cardiomyopathy (Chronic) I25.5 Right bundle branch block (Chronic) I45.10 Complete AV block, acquired (Chronic) I44.2 Old myocardial infarction (Chronic) I25.2 HLD (hyperlipidemia) (Chronic) E78.5 BPH (benign prostatic hyperplasia) N40.0 Diaphragmatic hernia K44.9 GERD (gastroesophageal reflux disease) K21.9 History of nephrolithiasis Z87.442 Radiculitis of leg M54.10 Type 2 diabetes mellitus E11.9 NSTEMI (non-ST elevated myocardial infarction) (Resolved) I21.4 Coronary atherosclerosis of [place] coronary artery (Inactive) I25.10 Allergies Penicillins Allergy (Verified 02/14/19 10:44) Anaphylaxis rosuvastatin calcium [From Crestor] Allergy (Verified 02/14/19 10:44) legs hurt Fbtvyyj-Qll-Vny Reductase Inhibitor Allergy (Verified 02/14/19 10:44) body aches amlodipine [From Norvasc] Adverse Reaction (Intermediate, Verified 02/14/19 10:44) dizzy ezetimibe [From Zetia] Adverse Reaction (Verified 02/14/19 10:44) mylagias Home Medications: Ambulatory Orders Medication Instructions Recorded Aspirin [Aspirin, Baby] 81 mg PO DAILY@0800 02/14/19 Carvedilol [Coreg] 3.125 mg PO BID 02/14/19 Clopidogrel Bisulfate [Clopidogrel] 75 mg PO DAILY 02/14/19 Colestipol Tablet [Colestid Tablet] 1 gm PO DAILY 02/14/19 Finasteride [Proscar] 5 mg PO DAILY 02/14/19 Focus Factor 1 tab PO BID 02/14/19 Folic Acid 5 mg PO DAILY 02/14/19 Furosemide 60 mg PO DAILY 02/14/19 Glimepiride [Amaryl] 2 mg PO DAILY PRN 02/14/19 Guaifenesin [Mucinex] 600 mg PO BID 02/14/19 Hydrocodone/Acetaminophen 1 tab PO BID 02/14/19 [Hydrocodone-Acetamin 5-325 mg] Isosorbide Mononitrate [Isosorbide 60 mg PO QHS 02/14/19 Mononitrate ER] Rem Fresh 0.5 tab PO QHS 02/14/19 Tamsulosin HCl [Flomax] 0.4 mg PO DAILY 02/14/19 Ubidecarenone [Coq-10] 100 mg PO DAILY 02/14/19 l Gasseri/B Bifidum/B Longum 2 cap PO QHS 02/14/19 [[employer] ASA Health Capsule] Surgical History: Surgical History (Last Reviewed 02/11/19 @ 08:54 by David Fagan MD) H/O coronary artery bypass surgery (Resolved) Onset Date: 06/17/05 Z95.1 CABG x 2: RUSH-LAD, SVG-LCx 06/17/05 Presence of permanent cardiac pacemaker (Chronic) Onset Date: 05/2014 Z95.0 History of coronary artery stent placement (Resolved) Onset Date: 07/22/18 Z95.5 PCI-MARIUM Prox OM1 w/ 2.5 x 12 mm Elunir, MARIUM-Prox LCx w/ 2.5 x 12 mm Elunir FPO-LKP-Ader LAD w/ 2.5 x 8 mm Resolute Integrity 07/22/18 MARIUM-Prox OM1 w/ 2.75 x 12 mm Xience Alpine Stent 04/15/2014 DHQ-RRU-Ehvv LAD w/ 3.5 x 12 mm Xience Xpedition and MARIUM-Prox LCx w/ 3.5 x 8 mm Xience Xpedition 08/11/2013 LWA-AZJ-Dkmu Main w/ 3.0 x 16 mm Taxus Stent and MARIUM-Prox OM1 w/ 2.5 x 16 mm Taxus 11/20/2005 History of appendectomy Z90.49 History of back surgery Z98.890 History of tonsillectomy and adenoidectomy Z98.890 Surgical History: appendectomy, coronary bypass surgery - s/p stents als, pacemaker implantation, tonsillectomy, - - h/o back surgery Psychiatric History: No pertinent psych hx Lives: Spouse/ Significant Other, With Family Smoking Status: Former smoker Tobacco Use: Non-smoker Alcohol: None Drugs: None - *Family History Paternal Family History: Family History (Last Reviewed 02/11/19 @ 08:54 by David Fagan MD) Father Myocardial infarction Hypertension Heart disease Mother Hypertension Emphysema of lung FH: brain aneurysm Daughter Afib History Items: Heart Disease - [place], Hypertension Maternal Family History: Family History (Last Reviewed 02/11/19 @ 08:54 by David Fagan MD) Father Myocardial infarction Hypertension Heart disease Mother Hypertension Emphysema of lung FH: brain aneurysm Daughter Afib History Items: COPD, Hypertension, - - brain aneurysm Review of Systems Constitutional: Reports: Anorexia, Malaise, Weakness, Fatigue. Denies: Chills, Fever, Night Sweats, Weight Change Eyes: Denies: Blurred vision, Cataracts, Conjunctivae Inflammation, Pain, Redness, Vision Change HEENT: Denies: Difficulty Hearing, Difficulty Swallowing, Head Aches, Hearing Changes, Sinus Congestion, Sinus Drainage Cardiovascular: Denies: Chest Pain, Claudication, Orthopnea, Palpitations, Paroxysmal Noc. Dyspnea Respiratory: Reports: Shortness of breath at rest, Shortness of breath upon exertion. Denies: Cough, Hemoptysis, Sputum production Gastrointestinal: Denies: Abdominal Pain, Constipation, Hematemesis, Nausea, Vomiting Genitourinary: Denies: Dysuria, Incontinence, Nocturia Musculoskeletal: Denies: Joint Pain, Joint stiffness, Joint swelling, Joint Tenderness Skin: Denies: Rash, Wounds Neurological: Denies: Difficulty swallowing, Focal weakness, Numbness, Tingling Psychiatric: Denies: Anxiety, Depression, Homicidal Ideations, Suicidal Ideations Hematologic/ Lymphatic: Denies: Easy Bruising, Easy Bleeding VTE Information - Inpt Only VTE Present on Admission: No VTE Pharm Prophylaxis ordered?: Yes - Physical Exam Vitals/I&O's: Vital Signs Temp Pulse Resp BP Pulse Ox 97.6 F L 93 26 H 140/95 H 96 02/14/19 10:41 02/14/19 12:51 02/14/19 12:51 02/14/19 12:51 02/14/19 12:51 Oxygen Delivery Method Room Air Weight: 83.6 kg Body Mass Index (BMI) 25.7 General: Alert, Oriented x3 - intermittently confused, Cooperative, No apparent distress, - - hard of hearing, looks unwell, appears to be having SOB HEENT: Atraumatic, PERRLA, EOMI, Normocephalic Oral: Moist Mucosa Neck: Supple Lungs: Clear to auscultation, Normal air movement Cardiovascular: Regular rate, Regular Rhythm, Normal S1, Normal S2, No murmurs Abdomen: Bowel Sounds Present, Soft, Non Tender, Non-Distended, No Hepato- splenomegaly Extremities: No edema Skin: No rashes, No breakdown Musculoskeletal: No Tenderness to Palpation of Joints or Extremities Lymphatic: No Cervical, Supraclavicular, or Inguinal Adenopathy Neurological: Cranial nerves II-XII grossly intact, Neuro grossly intact Psych/Mental Status: Normal Affect, Appropriate Laboratory Results 02/14/19 11:08: WBC 6.3, RBC 4.17 L, Hgb 12.2 L, Hct 38.4 L, MCV 92.1, MCH 29.3, MCHC 31.8 L, RDW Std Deviation 53.1 H, RDW Coeff of Iam 15.8 H, Plt Count 396, MPV 10.3, Neut % (Auto) Not Reportable, Absolute Neuts (auto) 5.1, Absolute Lymphs (auto) 0.82 L, Total Counted 100, Neutrophils % (Manual) 81 H, Band Neutr ophils % 1, Lymphocytes % (Manual) 13 L, Monocytes % (Manual) 1, Myelocytes % 3 H, Blast Cells % 1 H*, Diff Path Review July, Platelet Estimate ADEQUATE, RBC Morphology NORM C+C 02/14/19 11:08: Sodium 142, Potassium 4.2, Chloride 108 H, Carbon Dioxide 29.0, Anion Gap 5, BUN 39 H, Creatinine 2.90 H, Estim Creat Clear Calc 20.92, Est GFR (MDRD) Af Amer 27 L, Est GFR (MDRD) Non-Af 22 L, BUN/Creatinine Ratio 13.4, Glucose 170 H, Calcium 9.4, Troponin I 0.117 H Assessment/Plan All Active Problems (Last Reviewed 02/11/19 @ 08:54 by David Fagan MD) Atrial tachycardia, paroxysmal (Acute) Chest pain (Acute) Dyspnea on minimal exertion (Acute) Orthopnea (Acute) H/O coronary artery bypass surgery (Resolved 06/17/05) History of coronary artery stent placement (Resolved 07/22/18) Abdominal pain (Resolved) Dizziness (Resolved) NSTEMI (non-ST elevated myocardial infarction) (Resolved) Pneumonia (Resolved) Unstable angina (Resolved) 83 year old M with past medical history of CAD status post CABG and stent, CKD stage III, history of pacemaker, chronic systolic CHF with EF of 20% in after syncopal episode and reported to be confused. 1. Altered mental status, unclear etiology Differentials include arrhythmia versus recent medication changes versus possible acute stroke CT scan of the head was suggestive of acute infarct in the right MCA territory NIHSS score of 3 Patient cannot have MRI because of pacemaker. Not a TPA candidate because of the timing of his symptoms and arrival to the ED. Cannot do CTA of the head and neck on account of poor renal function Recent 2D echo in December 2018 showed an EF of 20% with severe global left ventricular systolic dysfunction/severe left ventricular hypokinesis, stage III diastolic dysfunction Will admit to PCU, on telemetry, monitor on telemetry. NIHSS protocol Initiate stroke protocol Patient is already on aspirin and Plavix Lipid profile, HgbA1c, carotid ultrasound stat, check CPK as patient has been lying on the ground for more than 3 hours 2. Syncope, unclear etiology for now, that is post pacemaker Orthostatic vitals was negative We will get his pacemaker interrogated, check TSH Continue to monitor orthostatic vitals 3. Elevated troponins, no acute EKG changes, could be secondary to ACS versus CKD History of CAD status post CABG, status post stents/chronic ischemic cardiomyopathy, 20%, not in acute exacerbation Check BNPep Continue on aspirin and Plavix, isosorbide, Lasix 4. CKD stage III, creatinine appears to be at her baseline, admitting creatinine is 2.90 5. Presence of blast cells in his blood count, normal WBC Discussed with hematology, his slide to be forwarded to pathology No history of any recent illness Will wait for pathology recommendation 6. DVT prophylaxis with heparin subcu Code Visit Inpatient E&M: 57373 Init Hosp L3
--- NOTE | 2019-02-14 15:18 | CDU_ITS ---
Reason For Study: CVA Rt. Velocities/BP Lt. Velocities/BP Prox CCA 47.5/9.0 cm/sec. Prox CCA 92.1/19.0 cm/sec. Mid CCA 62.8/14.5 cm/sec. Mid CCA 93.3/12.9 cm/sec. Dist CCA 57.3/12.3 cm/sec. Dist CCA 98.2/20.2 cm/sec. Prox ICA 94.0/*26.5 cm/sec. Prox ICA 79.3/15.3 cm/sec. Mid ICA 113.6/17.9 cm/sec. Mid ICA 96.5/22.8 cm/sec. Dist ICA 80.5/17.9 cm/sec. Dist ICA 87.9/21.6 cm/sec. Rt. ICA/CCA = 113.6/62.8=1.8. Lt. ICA/CCA = 96.5/98.2=1.0. Prox ECA 476.0/30.2 cm/sec. Prox ECA 412.7/24.2 cm/sec. Rt. Vert. 31.7/0.0 cm/sec. Lt. Vert. 50.9/11.2 cm/sec. Right Extracranial There is heterogeneous, irregular atherosclerotic plaque noted in the right common carotid artery. There is heterogeneous, irregular atherosclerotic plaque noted in the right internal carotid artery. The atherosclerotic plaque causes acoustic shadowing. There is heterogeneous, irregular atherosclerotic plaque noted in the right external carotid artery. Antegrade flow is noted in the right vertebral artery. Left Extracranial There is heterogeneous, irregular atherosclerotic plaque noted in the left common carotid artery. There is heterogeneous, irregular atherosclerotic plaque noted in the left internal carotid artery. The atherosclerotic plaque causes acoustic shadowing. There is heterogeneous, irregular atherosclerotic plaque noted in the left external carotid artery. Antegrade flow is noted in the left vertebral artery. Interpretation Summary Irregular calcific plaque right mid common carotid and proximal right external and internal carotid <50% stenosis right internal carotid >50% stenosis right external carotid Irregular calcific plaque left mid common carotid and proximal left external and internal carotid <50% stenosis left internal carotid >50% stenosis left external carotid Patent, antegrade, <50% stenosis bilateral vertebrals No change from 06/04/18 Ordering Physician: Karen López Referring Physician: Salima Tuttle Performed By: Brooke Razo RDCS, RVT
[2019-02-14 15:58] LABS: CPK Total, Creatine Kinase 102 U/L (39-308)
[2019-02-14] MEDS: Tamsulosin HCl 0.4 MG Capsule PO (16:35)
--- NOTE | 2019-02-14 18:45 | NURSING ---
called to room by ALUMINUM SIDING INSTALLER, patient having difficulty with solid foods. This RN to assess patient and patient pocketing food and food was spilling out of his mouth. Nurse had to finger swipe mouth to remove food, patient not following directions. Mouth cleaned w/ oral swabs. HOB left at 45 degrees. Decision to make NPO @ this time.
[2019-02-14] MEDS: Morphine 2 MG/ML Syringe IV (21:27)
[2019-02-14] MEDS: 0.9% Saline Lock 10 ML Syringe IV (21:27)
[2019-02-14] MEDS: Heparin Injection (Vial) 5,000 UNIT/ML VIAL 5000 UNIT SC (21:27)
[2019-02-14 21:46] LABS: Bedside Glucose 163 mg/dL (70-110)
[2019-02-15] VITALS (13 sets, daily range): BP systolic 126–155; BP diastolic 52–79; PULSE 70–101; RESP 19–22; TEMP 36.6–37.1; O2SAT 95–99; BMI 27.7
--- NOTE | 2019-02-15 05:55 | CT_ITS ---
STUDY: CT BRAIN WITHOUT CONTRAST REASON FOR EXAM: Male, 83 years old. Follow-up acute metabolic encephalopathy. Right MCA region infarction. Renal failure, CABG, diabetes, hypertension. RADIATION DOSAGE (If Supplied By Facility): CTDIvol = ( 44.99 ) mGy, DLP = ( 897.35 ) mGycm TECHNIQUE: Transaxial CT imaging of the brain was performed without administration of intravenous contrast material. Individualized dose optimization techniques were used for this CT. COMPARISON: CT scan brain 02/14/2019. FINDINGS: Normal soft tissue structures. Normal calvarium. There is cytotoxic edema in the lateral right frontal lobe, temporal lobe insula, and lateral right basal ganglia, which has increased in conspicuity from the recent previous study. Findings consistent with an evolving acute infarction. There is no visible increase in size of the infarction. There is effacement of overlying cortical sulci but no clinically significant mass effect or midline shift. There is no evidence for hemorrhagic conversion. There is mild cerebral atrophy with widening of the extra-axial spaces and ventricular dilatation. There are areas of decreased attenuation within the white matter tracts of the supratentorial brain, consistent with microvascular disease changes. Normal left basal ganglia and thalami. Normal brainstem. There is mild cerebellar atrophy. There is atherosclerotic calcification of the vertebral and cavernous carotid arteries. There is no intracranial hemorrhage. Normal visualized paranasal sinuses. CT/Brain/Head without Contrast IMPRESSION: Evolving acute right MCA distribution infarction, which is increased in conspicuity but not visibly increased in size. No significant mass effect. No evidence for hemorrhage. Chronic involutional changes, as above. Electronically Signed: Irvin Kaplan MD at 5:34 EST , Service support ,
[2019-02-15 06:53] LABS: Hematocrit 42.2 % (40-54); Hemoglobin 13.3 g/dL (13.0-16.5); Mean Corp Hgb Conc 31.5 g/dL (32-36); Mean Corpuscular Hgb 29.1 pg (27.0-32.0); Mean Corpuscular Volume 92.3 fL (80-94); Mean Platelet Vol. 10.3 fl (6.2-12.0); POSITIVE COUNT YES; POSITIVE MORPHOLOGY YES; Platelet Count 426 K/mm3 (150-450); RBC Distribution Width CV 16.3 % (11.6-14.6); RBC Distribution Width SD 55.2 fl (35.1-43.9); Red Blood Count 4.57 M/mm3 (4.6-6.2); White Blood Count 7.8 K/mm3 (4.4-11.0)
[2019-02-15] MEDS: Heparin Injection (Vial) 5,000 UNIT/ML VIAL 5000 UNIT SC ×3 (06:55→23:00)
[2019-02-15 07:03] LABS: Differential Indicated MANUAL DIFF
[2019-02-15 07:07] LABS: ALB/GLOB Ratio 1.5 RATIO (0.9-2.4); AST(SGOT) 12 U/L (15-37); Alanine Aminotransfer ALT/SGPT 15 U/L (16-61); Albumin, Serum 4.2 g/dL (3.2-5.0); Alkaline Phosphatase 59 U/L (45-117); Anion Gap 6 (5-15); BUN 36 mg/dL (7-18); BUN/Creat Ratio 13.2 RATIO (10-20); CPK Total, Creatine Kinase 85 U/L (39-308); Calcium,Total 9.3 mg/dL (8.5-10.1); Chloride 110 mmol/L (98-107); Cholesterol 133 mg/dL (200); Creatinine, Serum 2.73 mg/dL (0.70-1.30); EST Glomerular Filtration Rate 24 mL/min (>60); Est Glom Filt Rate - Afr Amer 29 mL/min (>60); Estimated Creatinine Clearance 18.83 ml/min; Globulin 2.8 g/dL (2.2-4.2); Glucose 177 mg/dL (74-106); High Density Lipoprotein 36 mg/dL; Potassium 4.2 mmol/L (3.5-5.1); Sodium Level 143 mmol/L (136-145); Triglycerides 154 mg/dL; Very Low Density Lipoprotein 31 mg/dL (5-40)
[2019-02-15 07:30] LABS: Bedside Glucose 168 mg/dL (70-110)
[2019-02-15 07:48] LABS: Basophil 3 % (0-1); Lymphocyte 11 % (19-41); Monocyte 4 % (0-10); Neutrophil-Segmented 82 % (47-70); Platelet Estimate ADEQUATE (ADEQ); Red Cell Morphology NORM C+C NORMAL (NORM C&C); Total Cells Counted 100 (MANUAL DIFF)
[2019-02-15 07:49] LABS: Absolute Neutrophil Count 6.4 X10^3/uL (2.0-7.7)
[2019-02-15 07:50] LABS: Pathologist Review Reviewed
--- NOTE | 2019-02-15 07:59 | CON.PCM_ITS ---
Reason for Consult Date of Consultation: 02/15/19 Reason for Consultation: Syncopal episode and recent cerebrovascular accident History of Present Illness: The patient is a 83 year old M who presented to the emergency room yesterday after he presented with an apparent syncopal episode. He was in the bathroom and does not remember anything after that. He was brought to the emergency room was evaluated blood work was noted to be stable he had a CAT scan done of his head which demonstrated a possible cerebrovascular accident. He did exhibit left-sided weakness. He has a history of coronary artery disease with bypass surgery in 2005. He had an RUSH to the LAD, SVG to the circumflex. Heart catheterization in 2014 demonstrated widely patent stent in the proximal left main and proximal circumflex, 80% stenosis in the mid LAD, patent previously placed stent in the proximal circumflex, patent stent in the obtuse marginal, patent RUSH to the LAD. In July 2018 he underwent cardiac catheterization and underwent stenting of his left anterior descending artery, circumflex and first obtuse marginal branch. 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 He has been intolerant to statins due to significant myalgias. He denies any chest pain but he does have some shortness of breath. He had been concerned about whether he should be taking 60 mg of Lasix. Adjustments were made during his recent office visit and he was also put on isosorbide. He also has some orthopnea. As you know he does have significant renal dysfunction and has also been seen the behavioral sciences instructor. His physical exam demonstrates clear lung oneal regular rate and rhythm and no pedal edema. Does exhibit weakness of his left upper and lower extremity. Cardiology was called to see him to evaluate whether he would merit from anticoagulation as he is on dual antiplatelet therapy. Past Medical History Allergies/Adverse Reactions: Allergies Penicillins Allergy (Verified 02/14/19 10:44) Anaphylaxis amlodipine [From Norvasc] Adverse Reaction (Intermediate, Verified 02/14/19 10:44) dizzy ezetimibe [From Zetia] Adverse Reaction (Verified 02/14/19 10:44) mylagias rosuvastatin calcium [From Crestor] Adverse Reaction (Verified 02/14/19 15:11) legs hurt Xvpemal-Vjv-Oix Reductase Inhibitor Adverse Reaction (Verified 02/14/19 15:11) body aches Home Medications: Ambulatory Orders Medication Instructions Recorded Aspirin [Aspirin, Baby] 81 mg PO DAILY@0800 02/14/19 Carvedilol [Coreg] 3.125 mg PO BID 02/14/19 Clopidogrel Bisulfate [Clopidogrel] 75 mg PO DAILY 02/14/19 Colestipol Tablet [Colestid Tablet] 1 gm PO DAILY 02/14/19 Finasteride [Proscar] 5 mg PO DAILY 02/14/19 Focus Factor 1 tab PO BID 02/14/19 Folic Acid 5 mg PO DAILY 02/14/19 Furosemide 60 mg PO DAILY 02/14/19 Glimepiride [Amaryl] 2 mg PO DAILY PRN 02/14/19 Guaifenesin [Mucinex] 600 mg PO BID 02/14/19 Hydrocodone/Acetaminophen 1 tab PO BID 02/14/19 [Hydrocodone-Acetamin 5-325 mg] Isosorbide Mononitrate [Isosorbide 60 mg PO QHS 02/14/19 Mononitrate ER] Rem Fresh 0.5 tab PO QHS 02/14/19 Tamsulosin HCl [Flomax] 0.4 mg PO DAILY 02/14/19 Ubidecarenone [Coq-10] 100 mg PO DAILY 02/14/19 l Gasseri/B Bifidum/B Longum 2 cap PO QHS 02/14/19 [[employer] Health Capsule] Past Medical History (Chronic Problems): Chronic Problems (Last Reviewed 02/11/19 @ 08:54 by David Fagan MD) Atherosclerosis of coronary artery bypass graft without angina pectoris (Chronic) PCI-MARIUM Prox OM1 w/ 2.5 x 12 mm Elunir, MARIUM-Prox LCx w/ 2.5 x 12 mm Elunir SAO-NAZ-Ijxv LAD w/ 2.5 x 8 mm Resolute Integrity 07/22/18 MARIUM-Prox OM1 w/ 2.75 x 12 mm Xience Alpine Stent 04/15/2014 RKE-YTH-Tlcq LAD w/ 3.5 x 12 mm Xience Xpedition and MARIUM-Prox LCx w/ 3.5 x 8 mm Xience Xpedition 08/11/2013 DST-BFU-Ovvy Main w/ 3.0 x 16 mm Taxus Stent and MARIUM-Prox OM1 w/ 2.5 x 16 mm Taxus 11/20/2005; CABG x 2: RUSH-LAD, SVG-LCx 06/17/05 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) Essential (primary) hypertension (Chronic) Acute on chronic systolic CHF (congestive heart failure) (Chronic) History of ventricular tachycardia (Chronic) Chronic renal failure, stage 4 (severe) (Chronic) Ischemic cardiomyopathy (Chronic) Right bundle branch block (Chronic) Complete AV block, 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) HLD (hyperlipidemia) (Chronic) Surgical History: appendectomy, coronary bypass surgery - s/p stents als, pacemaker implantation, tonsillectomy, - - h/o back surgery Psychiatric History: No pertinent psych hx - *Family History Paternal Family History: Family History (Last Reviewed 02/11/19 @ 08:54 by David Fagan MD) Father Myocardial infarction Hypertension Heart disease Mother Hypertension Emphysema of lung FH: brain aneurysm Daughter Afib History Items: Heart Disease - [place], Hypertension Maternal Family History: Family History (Last Reviewed 02/11/19 @ 08:54 by David Fagan MD) Father Myocardial infarction Hypertension Heart disease Mother Hypertension Emphysema of lung FH: brain aneurysm Daughter Afib History Items: COPD, Hypertension, - - brain aneurysm Lives: Spouse/ Significant Other, With Family Smoking Status: Former smoker Tobacco Use: Non-smoker Alcohol: None Drugs: None Review of Systems - Review of Systems General: Denies: Fever, Night Sweats, Fatigue HEENT: Denies: Vision Change Cardiovascular: Denies: Chest Discomfort, Shortness of Breath, Orthopnea, PND, Peripheral Edema, Palpitations, Lightheadedness, Dizziness, Near Syncope, Syncope Respiratory: Denies: Cough, Sputum Production, Hemoptysis Gastrointestinal: Denies: Hematemesis, Hematochezia, Melena Genitourinary: Denies: Dysuria, Hematuria Skin: Denies: Rash Neurological: Reports: Falls. Denies: Dizziness Psychiatric: Denies: Anxiety Endocrine: Denies: Heat Intolerance Hematologic/ Lymphatic: Denies: Lymph Node Enlargement Objective: Vital Signs Temp Pulse Resp BP Pulse Ox 98.2 F 78 21 H 155/79 H 99 02/15/19 06:59 02/15/19 06:59 02/15/19 06:59 02/15/19 06:59 02/15/19 06:59 Oxygen Delivery Method Room Air Weight: 171 lb 8.314 oz Body Mass Index (BMI) 27.7 Intake and Output for Last 24 Hours 02/13/19 02/14/19 02/15/19 23:59 23:59 23:59 Intake Total 0 / 0 Output Total 250 / 250 0 / 0 Balance -230 / -230 0 / 0 02/14/19 11:08: WBC 6.3, RBC 4.17 L, Hgb 12.2 L, Hct 38.4 L, MCV 92.1, MCH 29.3, MCHC 31.8 L, Plt Count 396, MPV 10.3, Neut % (Auto) Not Reportable, Absolute Neuts (auto) 5.1, Total Counted 100, Neutrophils % (Manual) 81 H, Band Neutrophils % 1, Lymphocytes % (Manual) 13 L, Monocytes % (Manual) 1, Myelocytes % 3 H, Blast Cells % 1 H* 02/14/19 11:08: Sodium 142, Potassium 4.2, Chloride 108 H, Carbon Dioxide 29.0, Anion Gap 5, BUN 39 H, Creatinine 2.90 H, Est GFR (MDRD) Af Amer 27 L, Est GFR (MDRD) Non-Af 22 L, BUN/Creatinine Ratio 13.4, Glucose 170 H, Calcium 9.4, Troponin I 0.117 H 02/14/19 11:08: B-Natriuretic Peptide 900.0 H 02/14/19 16:05: Troponin I 0.123 H 02/14/19 18:47: Troponin I 0.089 H 02/15/19 06:15: WBC 7.8, RBC 4.57 L, Hgb 13.3, Hct 42.2, MCV 92.3, MCH 29.1, MCHC 31.5 L, Plt Count 426, MPV 10.3, Neut % (Auto) Not Reportable, Absolute Neuts (auto) 6.4, Total Counted 100, Neutrophils % (Manual) 82 H, Lymphocytes % (Manual) 11 L, Monocytes % (Manual) 4, Basophils % (Manual) 3 H 02/15/19 06:15: Sodium 143, Potassium 4.2, Chloride 110 H, Carbon Dioxide 27.0, Anion Gap 6, BUN 36 H, Creatinine 2.73 H, Est GFR (MDRD) Af Amer 29 L, Est GFR (MDRD) Non-Af 24 L, BUN/Creatinine Ratio 13.2, Glucose 177 H, Calcium 9.3, Total Bilirubin 2.90 H, Triglycerides 154, Cholesterol 133, LDL Cholesterol 66, VLDL Cholesterol 31, HDL Cholesterol 36 L Rhythm: EKG: Normal sinus rhythm with T wave inversions noted laterally ECHO: Global reduction of the ventricular systolic function estimated EF of 20% Stress Test: Cardiac Cath: PCI: CT Surgery: Holter monitor: EPS: PPM: CXR: Chest CT Scan: Assessment/Plan 1. Recent cerebrovascular accident * Etiology of the above is not clear at this particular time. He does have reduced left ventricular ejection fraction. I would like us to interrogate his pacemaker to see whether he has had any atrial fibrillation episodes. This may bolster a reason to give him anticoagulation. It may be prudent with his renal dysfunction to put him on low-dose Eliquis but with very careful monitoring of his hemoglobin. * 2. Coronary artery disease * He does have known coronary artery disease with mildly increased troponin which is close to baseline. This may have been a demand ischemia issue. At this particular time I am not inclined to work this up any further. He recently had angioplasty and stenting of his left anterior descending artery and circumflex artery. He has had previous bypass surgery. * Will continue with his isosorbide. * 3. Hypertension * His blood pressure appears to be under fair control. Will permit mild hypertension due to his recent cerebrovascular event. * No changes will be made at this particular time. * 4. Left ventricular systolic dysfunction * He does have significant left ventricular systolic dysfunction with an estimated ejection fraction of 20%. He does have an elevated natruretic peptide level. We will continue to monitor the above and titrate his diuretics as appropriate. * 5. Status post pacemaker placement * His pacemaker will be interrogated today and further recommendations made as appropriate. * * Thank you for allowing me to participate in the care of your patient. Please don't hesitate to call if any issues arise
--- NOTE | 2019-02-15 12:07 | CASEMGMT ---
Case Management Progress Note: Attempt x2 to bedside to complete initial assessment. 1st time, multiple people visiting patient. 2nd time, PT/OT at bedside working with patient. CM will continue to follow for assessment and care coordination needs. Ryan Morales RNCM
--- NOTE | 2019-02-15 12:40 | CASEMGMT ---
RN CM Assessment Introduced role of RN CM to patient, patient Aixa and patient Dtr Nathalia at bedside.? Patient is confused and unable?to participate in RN CM Assessment, information obtained from Dtr Nathalia and Aixa at bedside. ?Care providers, pharmacy, and demographics verified. This life underwriter started assessment as soon as PT/OT finished, met with PT/OT while exiting room and states recommends additional therapy and RU. Presentation: Syncopal episode, fall, confused. Admit Dx: Syncope, CVA, Elevated Troponin Re-Admit: No Barriers/Issues: None PCP: Salima Tuttle Specialists: Cardio- Dr Fagan, Nephro- Dr Rivera, Pain- Dr Rodriguez Preferred Pharmacy: [facility] Insurance: [employer] O Rx Benefit:?Yes ?LNOK: Aixa Otto LW/HPOA: Yes has both, states brought in to place copy on file and gave to other staff, HPOA- Aixa Otto Living Arrangements:? Lives with his and Dtr Nathalia, [facility] with basement. 2 steps to enter home. ADL?s: Prior patient was independent with ambulation and ADLs. Did use a cane prn for SOB while ambulating. Transportation: Both patient and drive. DME: Cane, Glucometer- does not hardly use. HHC: None SNF: None Goal: RU vs SNF- given In Network list and 1st preference is [facility], States does not think will tolerate RU at 3hrs/day as patient could not tolerate that prior d/t SOB. Aware will discuss with Rambo as she will be assisting with the placement. Denies any further questions, concerns, or issues with DC planning at this time. Aware CM remains available for any emerging needs. DC PLAN: SNF ([facility]). SONIA Briceño
[2019-02-15 12:50] LABS: Bedside Glucose 155 mg/dL (70-110)
--- NOTE | 2019-02-15 13:17 | CASEMGMT ---
Addendum entered by Shital Gaona 02/15/19 15:14: SW received a message from Nelida at [facility] and they can accept patient. She will start the pre-cert. SW notified patient's and daughter that [facility] can accept him. Shital MATHEWS EMPLOYMENT LAW SPECIALIST Original Note: CRYSTAL FRANKS completed assessment with patient and his family. They would like patient to go to [facility] for rehab. SW called [facility] and left a message with Nelida. SW also faxed referral to [facility]. Shital MATHEWS EMPLOYMENT LAW SPECIALIST
--- NOTE | 2019-02-15 13:45 | PCM.PROGNOTE ---
<Leticia Nichols - Last Filed: 02/15/19 14:36> Subjective: Patient seen and examined. Daughter and son at bedside. Patient confused this morning, thinks he is in someone's house. Continues to have significant dysphagia, left vision deficit and left-sided weakness. No new neurologic symptoms. - Physical Exam Vitals/I&O's: Vital Signs Temp Pulse Resp BP Pulse Ox 98.1 F 86 20 H 148/71 H 96 02/15/19 10:54 02/15/19 10:54 02/15/19 10:54 02/15/19 10:54 02/15/19 11:41 Oxygen Delivery Method Room Air Weight: 171 lb 8.314 oz Body Mass Index (BMI) 27.7 Intake and Output for Last 24 Hours 02/13/19 02/14/19 02/15/19 23:59 23:59 23:59 Intake Total 0 / 0 Output Total 250 / 250 50 / 50 Balance -230 / -230 -50 / -50 General: Alert, Cooperative, No apparent distress HEENT: Atraumatic, PERRLA, EOMI, Normocephalic Oral: Dry Mucosa Neck: Supple, No JVD, Negative Carotid Bruits Lungs: Clear to auscultation, Diminished Cardiovascular: Regular rate, Regular Rhythm, Normal S1, Normal S2 Abdomen: Bowel Sounds Present, Soft, Non Tender, Non-Distended Extremities: No clubbing, No cyanosis, No edema, Capillary Refill Less than 3 Seconds Skin: No rashes, No breakdown Musculoskeletal: No Tenderness to Palpation of Joints or Extremities Neurological: Cranial nerves II-XII grossly intact, - - Partial hemianopia left eye, dysphagia, left-sided hemiplegia. Psych/Mental Status: Normal Affect, Appropriate Laboratory Results 02/14/19 11:08: Diff Path Review Reviewed 02/14/19 11:08: Total Creatine Kinase 102 02/14/19 11:08: B-Natriuretic Peptide 900.0 H 02/14/19 16:05: Troponin I 0.123 H, TSH 0.80 02/14/19 18:47: Troponin I 0.089 H 02/14/19 21:18: POC Glucose 163 H 02/15/19 06:15: WBC 7.8, RBC 4.57 L, Hgb 13.3, Hct 42.2, MCV 92.3, MCH 29.1, MCHC 31.5 L, RDW Std Deviation 55.2 H, RDW Coeff of Iam 16.3 H, Plt Count 426, MPV 10.3, Neut % (Auto) Not Reportable, Absolute Neuts (auto) 6.4, Absolute Lymphs (auto) 0.90, Total Counted 100, Neutrophils % (Manual) 82 H, Lymphocytes % (Manual) 11 L, Monocytes % (Manual) 4, Basophils % (Manual) 3 H, Diff Path Review July, Platelet Estimate ADEQUATE, RBC Morphology NORM C+C 02/15/19 06:15: Sodium 143, Potassium 4.2, Chloride 110 H, Carbon Dioxide 27.0, Anion Gap 6, BUN 36 H, Creatinine 2.73 H, Estim Creat Clear Calc 18.83, Est GFR (MDRD) Af Amer 29 L, Est GFR (MDRD) Non-Af 24 L, BUN/Creatinine Ratio 13.2, Glucose 177 H, Calcium 9.3, Total Bilirubin 2.90 H, AST 12 L, ALT 15 L, Alkaline Phosphatase 59, Total Creatine Kinase 85, Total Protein 7.0, Albumin 4.2, Globulin 2.8, Albumin/Globulin Ratio 1.5, Triglycerides 154, Cholesterol 133, LDL Cholesterol 66, VLDL Cholesterol 31, HDL Cholesterol 36 L 02/15/19 06:53: POC Glucose 168 H 02/15/19 11:47: POC Glucose 155 H Current Medications Acetaminophen (Tylenol) 650 mg PO Q6H PRN PRN PRN Reason: Pain Score 1-3/Temp > 100.7 F Aspirin (Aspirin, Baby) 81 mg PO DAILY@0800 [facility] Last Admin: 02/15/19 13:01 Dose: Not Given Documented by: Carvedilol (Coreg) 3.125 mg PO BID [facility] Last Admin: 02/15/19 13:02 Dose: Not Given Documented by: Clopidogrel Bisulfate (Plavix) 75 mg PO DAILY [facility] Last Admin: 02/15/19 13:02 Dose: Not Given Documented by: Colestipol HCl (Colestid Tablet) 1 gm PO DAILY [facility] Last Admin: 02/15/19 13:01 Dose: Not Given Documented by: Dextrose (D50w Syringe) 0 gm IV X1 PRN; Protocol PRN Reason: Hypoglycemia Finasteride (Proscar) 5 mg PO DAILY [facility] Last Admin: 02/15/19 13:02 Dose: Not Given Documented by: Folic Acid (Folic Acid) 5 mg PO DAILY@0800 [facility] Last Admin: 02/15/19 13:01 Dose: Not Given Documented by: Furosemide (Lasix) 60 mg PO DAILY [facility] Last Admin: 02/15/19 13:02 Dose: Not Given Documented by: Glucagon () 1 mg IM .X1 PRN PRN Reason: Hypoglycemia Heparin Sodium (Porcine) (Heparin Na) 5,000 unit SC Q8 [facility] Last Admin: 02/15/19 06:55 Dose: 5,000 unit Documented by: Sodium Chloride () 250 mls @ 15 mls/hr IV .[id number] PRN PRN Reason: Saline Flush Insulin Human Lispro (Humalog Kwikpen (Bkc)) 0 unit SC ACHS [facility]; Protocol Last Admin: 02/15/19 13:02 Dose: Not Given Documented by: Isosorbide Mononitrate (Imdur) 60 mg PO QHS [facility] Last Admin: 02/14/19 20:16 Dose: Not Given Documented by: Morphine Sulfate () 2 mg IV Q3H PRN PRN PRN Reason: Pain Score 1-10/10 Last Admin: 02/14/19 21:27 Dose: 2 mg Documented by: Nitroglycerin (Nitrostat) 0.4 mg SUBLINGUAL Q5M PRN PRN Reason: CARDIAC/CHEST PAIN Ondansetron HCl (Zofran) 4 mg IV Q8H PRN PRN PRN Reason: NAUSEA/VOMITING Sodium Chloride () 10 - 40 ml IV UD PRN PRN Reason: SALINE FLUSH Last Admin: 02/14/19 21:27 Dose: 20 ml Documented by: Tamsulosin HCl (Flomax) 0.4 mg PO DAILY@1730 [facility] Last Admin: 02/15/19 13:02 Dose: Not Given Documented by: Medical Necessity - Tobacco Use Smoking Status: Former smoker Tobacco Use: Non-smoker Assessment/Plan 1. 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 Tele-neurology consulted. Recommend continued dual antiplatelet therapy with aspirin and Plavix. Continue statin. No indication for oral anticoagulation at this time per cardiology. Pacemaker interrogation did not demonstrate any arrhythmia or atrial fibrillation. Carotid Doppler demonstrates less than 50% stenosis of the right internal carotid, greater than 50% stenosis right external carotid, less than 50% stenosis left internal carotid, greater than 50% stenosis left external carotid.. Echocardiogram pending. Unable to obtain MRI due to pacemaker. PT/OT/ST. NPO due to severe dysphagia. Speech therapy to reassess tomorrow. Plan for SNF at discharge for further therapy. 2. Altered mental status, unclear etiology-suspect secondary to #1. Chest x-ray unremarkable. Check UA. 3. Elevated troponin-demand ischemia as a result of #1. Cardiology following. Echocardiogram pending. EKG without acute changes. 4. History of CAD status post CABG/stents-continue medical management. 5. Chronic ischemic cardiomyopathy with EF 20%-no acute CHF. 6. Chronic kidney disease stage IV-at baseline. 7. Type 2 diabetes mellitus-hold oral regimen. Accu-Cheks ACHS with sliding scale insulin. 8. Blast cells positive on initial CBC-outpatient follow-up with hematology. 9. BPH-continue Flomax, finasteride regimen. DVT prophylaxis- heparin sc This patient was seen by VIKKI Burton under the supervision of Dr. Dang. <Mike Dang - Last Filed: 02/15/19 14:49> - Physical Exam Vitals/I&O's: Vital Signs Temp Pulse Resp BP Pulse Ox 98.1 F 86 20 H 148/71 H 96 02/15/19 10:54 02/15/19 10:54 02/15/19 10:54 02/15/19 10:54 02/15/19 11:41 Oxygen Delivery Method Room Air Weight: 171 lb 8.314 oz Body Mass Index (BMI) 27.7 Intake and Output for Last 24 Hours 02/13/19 02/14/19 02/15/19 23:59 23:59 23:59 Intake Total 0 / 0 Output Total 250 / 250 50 / 50 Balance -230 / -230 -50 / -50 Laboratory Results 02/14/19 11:08: Diff Path Review Reviewed 02/14/19 11:08: Total Creatine Kinase 102 02/14/19 11:08: B-Natriuretic Peptide 900.0 H 02/14/19 16:05: Troponin I 0.123 H, TSH 0.80 02/14/19 18:47: Troponin I 0.089 H 02/14/19 21:18: POC Glucose 163 H 02/15/19 06:15: WBC 7.8, RBC 4.57 L, Hgb 13.3, Hct 42.2, MCV 92.3, MCH 29.1, MCHC 31.5 L, RDW Std Deviation 55.2 H, RDW Coeff of Iam 16.3 H, Plt Count 426, MPV 10.3, Neut % (Auto) Not Reportable, Absolute Neuts (auto) 6.4, Absolute Lymphs (auto) 0.90, Total Counted 100, Neutrophils % (Manual) 82 H, Lymphocytes % (Manual) 11 L, Monocytes % (Manual) 4, Basophils % (Manual) 3 H, Diff Path Review July, Platelet Estimate ADEQUATE, RBC Morphology NORM C+C 02/15/19 06:15: Sodium 143, Potassium 4.2, Chloride 110 H, Carbon Dioxide 27.0, Anion Gap 6, BUN 36 H, Creatinine 2.73 H, Estim Creat Clear Calc 18.83, Est GFR (MDRD) Af Amer 29 L, Est GFR (MDRD) Non-Af 24 L, BUN/Creatinine Ratio 13.2, Glucose 177 H, Calcium 9.3, Total Bilirubin 2.90 H, AST 12 L, ALT 15 L, Alkaline Phosphatase 59, Total Creatine Kinase 85, Total Protein 7.0, Albumin 4.2, Globulin 2.8, Albumin/Globulin Ratio 1.5, Triglycerides 154, Cholesterol 133, LDL Cholesterol 66, VLDL Cholesterol 31, HDL Cholesterol 36 L 02/15/19 06:53: POC Glucose 168 H 02/15/19 11:47: POC Glucose 155 H Current Medications Acetaminophen (Tylenol) 650 mg PO Q6H PRN PRN PRN Reason: Pain Score 1-3/Temp > 100.7 F Aspirin (Aspirin, Baby) 81 mg PO DAILY@0800 [facility] Last Admin: 02/15/19 13:01 Dose: Not Given Documented by: Carvedilol (Coreg) 3.125 mg PO BID [facility] Last Admin: 02/15/19 13:02 Dose: Not Given Documented by: Clopidogrel Bisulfate (Plavix) 75 mg PO DAILY [facility] Last Admin: 02/15/19 13:02 Dose: Not Given Documented by: Colestipol HCl (Colestid Tablet) 1 gm PO DAILY [facility] Last Admin: 02/15/19 13:01 Dose: Not Given Documented by: Dextrose (D50w Syringe) 0 gm IV X1 PRN; Protocol PRN Reason: Hypoglycemia Finasteride (Proscar) 5 mg PO DAILY [facility] Last Admin: 02/15/19 13:02 Dose: Not Given Documented by: Folic Acid (Folic Acid) 5 mg PO DAILY@0800 [facility] Last Admin: 02/15/19 13:01 Dose: Not Given Documented by: Furosemide (Lasix) 20 mg IV DAILY [facility] Glucagon () 1 mg IM .X1 PRN PRN Reason: Hypoglycemia Heparin Sodium (Porcine) (Heparin Na) 5,000 unit SC Q8 [facility] Last Admin: 02/15/19 14:37 Dose: 5,000 unit Documented by: Sodium Chloride () 250 mls @ 15 mls/hr IV .[id number] PRN PRN Reason: Saline Flush Sodium Chloride () 1,000 mls @ 75 mls/hr IV .[id number] [facility] Insulin Human Lispro (Humalog Kwikpen (Bkc)) 0 unit SC ACHS [facility]; Protocol Last Admin: 02/15/19 13:02 Dose: Not Given Documented by: Isosorbide Mononitrate (Imdur) 60 mg PO QHS [facility] Last Admin: 02/14/19 20:16 Dose: Not Given Documented by: Morphine Sulfate () 2 mg IV Q3H PRN PRN PRN Reason: Pain Score 1-10/10 Last Admin: 02/14/19 21:27 Dose: 2 mg Documented by: Nitroglycerin (Nitrostat) 0.4 mg SUBLINGUAL Q5M PRN PRN Reason: CARDIAC/CHEST PAIN Ondansetron HCl (Zofran) 4 mg IV Q8H PRN PRN PRN Reason: NAUSEA/VOMITING Sodium Chloride () 10 - 40 ml IV UD PRN PRN Reason: SALINE FLUSH Last Admin: 02/14/19 21:27 Dose: 20 ml Documented by: Tamsulosin HCl (Flomax) 0.4 mg PO DAILY@1730 [facility] Last Admin: 02/15/19 13:02 Dose: Not Given Documented by: Assessment/Plan Hospitalist note: I am seeing this patient in conjunction with Leticia Nichols. I independently seen and examined the patient. History and physical, laboratory data and imaging studies reviewed and I concur with the above treatment plan. Patient is alert, oriented to himself, disoriented to time and place. He knows his full name, he knows his and his daughter. Continues to have left-sided weakness and left-sided neglect. Blood pressure has been stable. - Physical Exam General: Alert, Oriented x1, disoriented to time and place, cooperative, No apparent distress, left-sided neglect. HEENT: Atraumatic, PERRLA, EOMI. Neck: Supple, No JVD, Negative Carotid Bruits, Trachea Midline, Thyroid Normal. Lungs: Diminished breath sounds bilateral, otherwise clear, No rhonchi, No wheeze, No rales. Cardiovascular: Regular rate, Regular Rhythm, Normal S1, Normal S2, PMI Normal. Abdomen: Bowel Sounds Present, Soft, Non Tender, Non-Distended, No Hepato-splenomegaly. Extremities: No clubbing, No cyanosis, No edema Skin: No rashes, No breakdown Neurological: Left facial droop, left side body hemiparesis, left hemianopsia. Vital Signs are stable. Assessment and plan: #1 acute right MCA infarct: With resultant left side hemiparesis, left hemianopsia. Bilateral carotid Doppler revealed less than 50% stenosis of right and left internal and external carotid arteries. MRI cannot be done because patient has pacemaker. He is on aspirin and Plavix. He is allergic to statins. Blood pressures has been stable. Patient had 2D echocardiogram done on December, that showed severely dilated left ventricle, ejection fraction was 20% and stage III diastolic dysfunction. Pacemaker interrogated and obviously, there was no evidence of cardiac arrhythmias or A. fib. Cardiology recommended no anticoagulation indicated at this time. Plan to continue same treatment, PT OT, patient will need placement to senior care facility. #2 encephalopathy: Acute, likely secondary to acute stroke. Patient has been afebrile, no evidence of infection. #3 borderline elevated troponin: Likely secondary to demand ischemia as result of acute stroke. EKG without acute chronic changes. Patient is already on aspirin, Plavix and statins as well as nitrate. #4 other chronic medical problems: Stable, continue current medications as above. This note was generated with [employer] dictation software. It may contain incorrect words, spelling, and punctuation that were not noted in checking the note before signing. Code Visit Inpatient E&M: 94488 Subs Hosp L3
[2019-02-15 15:23] LABS: Pathologist Review Reviewed
[2019-02-15] MEDS: 0.9% Saline Lock 10 ML Syringe IV ×2 (16:06→18:08)
[2019-02-15] MEDS: 0.9% Normal Saline 1,000 ML 75 ML IV (16:06)
[2019-02-15 16:15] LABS: Bedside Glucose 142 mg/dL (70-110)
[2019-02-15] MEDS: Furosemide 20 MG/2 ML VIAL IV (18:07)
[2019-02-15] MEDS: Morphine 2 MG/ML Syringe IV (18:08)
[2019-02-16 00:29] VITALS: BMI 27.7
[2019-02-16 02:38] VITALS: BP 156/68; PULSE 73; RESP 18; TEMP 36.7; O2SAT 96
[2019-02-16 03:05] VITALS: PULSE 73
[2019-02-16 03:16] LABS: Bedside Glucose 143 mg/dL (70-110)
[2019-02-16 04:04] LABS: Mucous, Urine 0 SEEN /hpf (<or=2+); Squamous Epithelial Cells - UA 0 SEEN /hpf (0-5); White Blood Cells 0 SEEN /hpf (0-5)
[2019-02-16 04:31] LABS: Color, Urine Yellow (Yellow); Glucose, Dipstick Normal (Normal); Ketone-Dipstick 50 mg/dl (Negative); Leukocyte Esterase-Dipstick Negative /ul (Negative); Nitrite-Dipstick Negative (Negative); Occult Blood-Urine 25 /ul (Negative); Protein-Dipstick 100 mg/dl (Negative); Urine Bilirubin Dipstick Negative (Negative); Urine Clarity Clear (Clear); Urine Urobilinogen Normal (Normal)
[2019-02-16 04:36] LABS: Bacteria RARE /hpf (None Seen)
[2019-02-16 04:37] LABS: Amorphous Sediment RARE; Hyaline Cast 0-5 SEEN /lpf (0-5); Red Blood Cells-Urine 0-5 SEEN /hpf (0-5)
[2019-02-16] MEDS: 0.9% Normal Saline 1,000 ML 75 ML IV (06:04)
[2019-02-16] MEDS: Heparin Injection (Vial) 5,000 UNIT/ML VIAL 5000 UNIT SC (06:07)
[2019-02-16 06:33] VITALS: BP 150/71; PULSE 83; RESP 22; TEMP 36.7; O2SAT 98
[2019-02-16 06:33] LABS: Hematocrit 40.9 % (40-54); Hemoglobin 12.9 g/dL (13.0-16.5); Mean Corp Hgb Conc 31.5 g/dL (32-36); Mean Corpuscular Hgb 29.5 pg (27.0-32.0); Mean Corpuscular Volume 93.4 fL (80-94); Mean Platelet Vol. 10.1 fl (6.2-12.0); Platelet Count 368 K/mm3 (150-450); RBC Distribution Width CV 15.9 % (11.6-14.6); RBC Distribution Width SD 54.8 fl (35.1-43.9); Red Blood Count 4.38 M/mm3 (4.6-6.2); White Blood Count 6.1 K/mm3 (4.4-11.0)
[2019-02-16 06:54] LABS: Anion Gap 6 (5-15); BUN 39 mg/dL (7-18); BUN/Creat Ratio 15.4 RATIO (10-20); Calcium,Total 9.2 mg/dL (8.5-10.1); Chloride 113 mmol/L (98-107); Creatinine, Serum 2.53 mg/dL (0.70-1.30); EST Glomerular Filtration Rate 26 mL/min (>60); Est Glom Filt Rate - Afr Amer 32 mL/min (>60); Estimated Creatinine Clearance 20.31 ml/min; Glucose 143 mg/dL (74-106); Potassium 4.3 mmol/L (3.5-5.1); Sodium Level 145 mmol/L (136-145)
[2019-02-16 06:55] LABS: Bedside Glucose 137 mg/dL (70-110)
[2019-02-16 07:54] VITALS: PULSE 75
--- NOTE | 2019-02-16 08:20 | PN.CARD_ITS ---
Subjectve: Patient seen and evaluated. Appears to be stable Objective: Vital Signs Temp Pulse Resp BP Pulse Ox 98.0 F 75 22 H 150/71 H 98 02/16/19 06:33 02/16/19 07:54 02/16/19 06:33 02/16/19 06:33 02/16/19 06:33 Oxygen Delivery Method Room Air Weight: 171 lb 15.369 oz Body Mass Index (BMI) 27.7 Intake and Output for Last 24 Hours 02/14/19 02/15/19 02/16/19 23:59 23:59 23:59 Intake Total 0 / 0 1000 / 1000 Output Total 250 / 250 50 / 50 250 / 250 Balance -230 / -230 -50 / -50 750 / 750 General: Awake, Alert, Oriented x 3 HEENT: PERRL, EOMI, Sclera Non Icteric Neck: Supple, Good ROM, No Lymph Node Enlargement Lungs: Clear to auscultation Cardiovascular: Regular Rhythm, Normal S1, Normal S2, No Murmurs, No Rubs, No Gallops Vascular: No Carotid Bruits, Normal Femoral Pulses, Normal Radial Pulses, Normal Dorsalis Pedal Pulse, Normal Posterior Tibial Pulses Abdomen: Bowel Sounds Present, Soft, Non Tender, No HSM, No Organomegaly Extremities: No Cyanosis, No Clubbing, No edema Musculoskeletal: No Erythema Skin: No Rashes Lymphatic: No Lymph Node Enlargement Neurological: - - Left-sided weakness 02/16/19 03:50: Urine Color Yellow, Urine Clarity Clear, Urine pH 5.0, Ur S pecific [place] 1.020, Urine Protein 100 H, Urine Glucose (UA) Normal, Urine Ketones 50 H, Urine Occult Blood 25 H, Urine Nitrite Negative, Urine Bilirubin Negative, Urine Urobilinogen Normal, Ur Leukocyte Esterase Negative, Urine RBC 0-5 SEEN, Urine WBC 0 SEEN 02/16/19 05:40: WBC 6.1, RBC 4.38 L, Hgb 12.9 L, Hct 40.9, MCV 93.4, MCH 29.5, MCHC 31.5 L, Plt Count 368, MPV 10.1 02/16/19 05:40: Sodium 145, Potassium 4.3, Chloride 113 H, Carbon Dioxide 26.0, Anion Gap 6, BUN 39 H, Creatinine 2.53 H, Est GFR (MDRD) Af Amer 32 L, Est GFR (MDRD) Non-Af 26 L, BUN/Creatinine Ratio 15.4, Glucose 143 H, Calcium 9.2 Rhythm: EKG: ECHO: Stress Test: Cardiac Cath: PCI: CT Surgery: Holter monitor: EPS: PPM: CXR: Chest CT Scan: Medical Necessity - Tobacco Use Smoking Status: Former smoker Tobacco Use: Non-smoker Assessment/Plan 1. Recent cerebrovascular accident * Etiology of the above is not clear at this particular time. He does have reduced left ventricular ejection fraction. * The pacemaker was interrogated and no evidence of atrial fibrillation was noted. At this time I would not recommend anticoagulation with a factor Xa inhibitor or Coumadin or a direct thrombin inhibitor * 2. Coronary artery disease * He does have known coronary artery disease with mildly increased troponin which is close to baseline. This may have been a demand ischemia issue. At this particular time I am not inclined to work this up any further. He recently had angioplasty and stenting of his left anterior descending artery and circumflex artery. He has had previous bypass surgery. * Will continue with his isosorbide. * 3. Hypertension * His blood pressure appears to be under fair control. Will permit mild hypertension due to his recent cerebrovascular event. * No changes will be made at this particular time. * 4. Left ventricular systolic dysfunction * He does have significant left ventricular systolic dysfunction with an estimated ejection fraction of 20%. He does have an elevated natruretic peptide level. We will continue to monitor the above and titrate his diuretics as appropriate. * There is little data supporting anticoagulation with low ventricular dysfunction which is not segmental 5. Status post pacemaker placement * His pacemaker will be interrogated today and further recommendations made as appropriate. No evidence of atrial fibrillation was noted we will continue to follow-up in the office * * Thank you for allowing me to participate in the care of your patient. Please don't hesitate to call if any issues arise
[2019-02-16] MEDS: Furosemide 20 MG/2 ML VIAL IV (08:26)
[2019-02-16] MEDS: Finasteride 5 MG Tablet PO (10:03)
[2019-02-16] MEDS: Aspirin 81 MG TAB.CHEW PO (10:04)
[2019-02-16] MEDS: Carvedilol 3.125 MG TABLET PO (10:04)
[2019-02-16] MEDS: Clopidogrel Bisulfate 75 MG Tablet PO (10:04)
[2019-02-16] MEDS: Folic Acid 1 MG Tablet 5 MG PO (10:04)
[2019-02-16 10:11] VITALS: BP 154/72; PULSE 74; RESP 24; TEMP 36.6; O2SAT 98
--- NOTE | 2019-02-16 10:39 | CASEMGMT ---
Received insurance approval for patient to go to [place] today. SW will notify physician. RN and shield operator were notified. Shital AVELAR
--- NOTE | 2019-02-16 10:52 | CASEMGMT ---
SW did not complete a PHQ 9 for patient as he is alert and oriented to self only. Shital MATHEWS MSW
--- NOTE | 2019-02-16 11:13 | TREXTCA.CO_ITS ---
- Diet 02/16/19 09:31 Diet: Regular Diet Food consistency:: Puree Liquid Consistency:: Honey Thick Is pt able to select menu?: No Diet Comments: staff supervision, no straws - Routine Orders/Code Status Enema Type: Fleetz Enema Frequency: Daily PRN Suppository Type: Dulcolax 10mg Suppository Frequency: Daily PRN Routine Lab Work: CBC, BMP, - - Q Week Code Status: DNC-A - Suggestions for Active Care Change Position every (hours): 2 Times a day to sit in chair: 3 - Therapies Physical Therapy: Eval and Treat Occupational Therapy: Eval and Treat Speech Therapy: Eval and Treat - Problem/Diagnosis (1) Atherosclerosis of coronary artery bypass graft without angina pectoris Status: Chronic Comment: PCI-MARIUM Prox OM1 w/ 2.5 x 12 mm Elunir, MARIUM-Prox LCx w/ 2.5 x 12 mm Elunir ACC-OVP-Nowg LAD w/ 2.5 x 8 mm Resolute Integrity 07/22/18 MARIUM-Prox OM1 w/ 2.75 x 12 mm Xience Alpine Stent 04/15/2014 VHW-NYX-Zerr LAD w/ 3.5 x 12 mm Xience Xpedition and MARIUM-Prox LCx w/ 3.5 x 8 mm Xience Xpedition 08/11/2013 LLJ-CCO-Flzw Main w/ 3.0 x 16 mm Taxus Stent and MARIUM- Prox OM1 w/ 2.5 x 16 mm Taxus 11/20/2005; CABG x 2: RUSH-LAD, SVG-LCx 06/17/05 Current Visit: No (2) H/O coronary artery bypass surgery Status: Chronic Comment: CABG x 2: RUSH-LAD, SVG-LCx 06/17/05 Current Visit: No (3) Presence of permanent cardiac pacemaker Status: Chronic Current Visit: No (4) Essential (primary) hypertension Status: Chronic Current Visit: No (5) History of coronary artery stent placement Status: Chronic Comment: PCI-MARIUM Prox OM1 w/ 2.5 x 12 mm Elunir, MARIUM-Prox LCx w/ 2.5 x 12 mm Elunir EJI-VUE-Acyx LAD w/ 2.5 x 8 mm Resolute Integrity 07/22/18 MARIUM-Prox OM1 w/ 2.75 x 12 mm Xience Alpine Stent 04/15/2014 LMG-JGA-Fgbv LAD w/ 3.5 x 12 mm Xience Xpedition and MARIUM-Prox LCx w/ 3.5 x 8 mm Xience Xpedition 08/11/2013 CSR-XBZ-Muqj Main w/ 3.0 x 16 mm Taxus Stent and MARIUM- Prox OM1 w/ 2.5 x 16 mm Taxus 11/20/2005 Current Visit: No (6) History of ventricular tachycardia Status: Chronic Current Visit: No (7) Chronic renal failure, stage 4 (severe) Status: Chronic Current Visit: No (8) Ischemic cardiomyopathy Status: Chronic Current Visit: No (9) Right bundle branch block Status: Chronic Current Visit: No (10) Complete AV block, acquired Status: Chronic Current Visit: No (11) Old myocardial infarction Status: Chronic Current Visit: No (12) HLD (hyperlipidemia) Status: Chronic Current Visit: No (13) Stroke Status: Acute Current Visit: Yes - Allergies/Procedures Done in Hospital Allergies/Adverse Reactions: Allergies Penicillins Allergy (Verified 02/14/19 10:44) Anaphylaxis amlodipine [From Norvasc] Adverse Reaction (Intermediate, Verified 02/14/19 10:44) dizzy ezetimibe [From Zetia] Adverse Reaction (Verified 02/14/19 10:44) mylagias rosuvastatin calcium [From Crestor] Adverse Reaction (Verified 02/14/19 15:11) legs hurt Mckfzyc-Tqz-Ndq Reductase Inhibitor Adverse Reaction (Verified 02/14/19 15:11) body aches Procedures: None - Type of Care/Length of Stay Estimated LOS: Convalescent Care Less Than 30 days Type of Care Needed: Skilled Rehab Potential: Fair Prognosis: Fair - Additional Orders/Day of Discharge H&P will serve as current which was dated: 02/14/19 Day of Discharge: 02/16/19 - Dietary and Speech Recommendations Dietitian Recommendations/Changes: Suggest diet change to Cardiac/low sodium with protein restriction/60 gm as needed. Speech Linguistic Eval Summary: The patient is a 83 year old M with past medical history significant for Atherosclerosis of coronary artery bypass graft without angina pectoris, Essential (primary) hypertension, Acute on chronic systolic CHF (congestive heart failure), History of ventricular tachycardia, Chronic renal failure stage 4 (severe), Ischemic cardiomyopathy, Right bundle branch block, Complete AV block acquired, Old myocardial infarction, HLD (hyperlipidemia), BPH (benign prostatic hyperplasia), Diaphragmatic hernia, GERD (gastroesophageal reflux disease), History of nephrolithiasis, Radiculitis of leg, Type 2 diabetes mellitus, NSTEMI (non-ST elevated myocardial infarction, Coronary atherosclerosis of [place] coronary artery. 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 Per patient's daughter, upn awakening, he appeared confused and could not gethis words out. Pt presented to the ED, but was outside the window for TPA. Unable to have an MRI d/t pacemaker and unable to tolerate contrast d/t renal failure. Brain CT 02/14/2019 IMPRESSION: There is loss of the zuniga-white matter differentiation in the lateral right frontal lobe suspicious for acute infarct, corresponding to right MCA vascular territory. Repeat Brain CT 02/15/2019 IMPRESSION: Evolving acute right MCA distribution infarction, which is increased in conspicuity but not visibly increased in size. No significant mass effect. No evidence for hemorrhage. Chronic involutional changes, as above. 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 Mild age related slowing of though processing reported, but reports that he is normally very sharp and on top of things. Informal cognitive-linguistic evaluation completed at bedside. Oriented to name, age & . Not oriented to place (someone's house), reason for admission, month (March), year (2069) or time of day. Reoriented. Answered simple and complex/comparison yes/no ?s w/ 100% accuracy. Executed 1 and 2 step commands w/ 100% accuracy, 3 step commands w/ 50% accuracy. Confrontation namin% accuracy. Immediate recall of 3 word sequence: 3/3 Delayed recall of 3 word sequence: 1/3, although able to recall other two w/ PHOTOVOLTAIC TECHNICIAN provision of category cue. [place] to recall street name. oor comprehension of problem solving questions, providing own home phone number when asked what emergency number should be dialed to immediately get emergent medical help at home ([phone]). [place] to read at the word leel accurately. Mod to max prompting w/ hand over hand assist needed to track left to locate first word in order to read at the sentence level. Able to see past midline, although significant left neglect evident. Did not asses writing. Verbal expression is marked by mild to moderate dysarthria. No aprasia evident. Did not assess generative naming skills this date. Skilled ST intervention targeting deficits in speech intelligibility, visual attention, orientation, comprehension and higher level cognitive skills is recommended - anticipate need for inpatient rehab vs. SNF placement for additional therapy prior to returning home as the patient was previously functionally independent. - Follow Up Care Primary Care Physician: Salima Tuttle MD [Primary Care Provider] - Please follow up with your Primary Care Physician in: 1 Week Please Follow Up With: David Fagan MD When: 2 Weeks, may see CHEMICAL RESEARCH ENGINEER/PA Please Follow Up With: Kings Thomas MD - Neurology When: 2 Weeks, may see CHEMICAL RESEARCH ENGINEER
--- NOTE | 2019-02-16 12:00 | CASEMGMT ---
AVILA faxed orders to [facility]. Completed a convalescent on HENS. Called [facility] and arranged for patient to get picked up at 1p via cot. AVILA notified Nelida at [facility], patient's , and habilitation assistant. Plan: d/c to [facility] under skilled level of care on a [facility]val[facility] stay[facility] Shital MATHEWS MSW
[2019-02-16] MEDS: Insulin Lispro 100 UNIT/ML INSULN.PEN SC (12:08)
[2019-02-16 12:15] LABS: Bedside Glucose 200 mg/dL (70-110)
--- NOTE | 2019-02-16 12:38 | PCM.DC.SUM ---
<Leticia Nichols - Last Filed: 02/16/19 13:03> Discharge Date and Diagnosis Date of Admission: 02/14/19 Date of Discharge: 02/16/19 - Primary Discharge Diagnosis Active and Suspected Problems (Last Updated 02/15/19 @ 14:40 by Mike Dang MD) 1. Acute right MCA distribution infarct 2. Acute encephalopathy-secondary to #1. 3. Elevated troponin-demand ischemia as a result of #1. 4. History of CAD status post CABG/stents 5. Chronic ischemic cardiomyopathy with EF 20% 6. Chronic kidney disease stage IV 7. Type 2 diabetes mellitus 8. Blast cells positive on initial CBC 9. BPH - Secondary Discharge Diagnosis Chronic Problems (Last Updated 02/15/19 @ 14:40 by Mike Dang MD) Atherosclerosis of coronary artery bypass graft without angina pectoris (Chronic) PCI-MARIUM Prox OM1 w/ 2.5 x 12 mm Elunir, MARIUM-Prox LCx w/ 2.5 x 12 mm Elunir NCZ-LRN-Fqss LAD w/ 2.5 x 8 mm Resolute Integrity 07/22/18 MARIUM-Prox OM1 w/ 2.75 x 12 mm Xience Alpine Stent 04/15/2014 DRF-IRK-Ojrk LAD w/ 3.5 x 12 mm Xience Xpedition and MARIUM-Prox LCx w/ 3.5 x 8 mm Xience Xpedition 08/11/2013 AFR-DMR-Idzw Main w/ 3.0 x 16 mm Taxus Stent and MARIUM-Prox OM1 w/ 2.5 x 16 mm Taxus 11/20/2005; CABG x 2: RUSH-LAD, SVG-LCx 06/17/05 H/O coronary artery bypass surgery (Chronic 06/17/05) CABG x 2: RUSH-LAD, SVG-LCx 06/17/05 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) Essential (primary) hypertension (Chronic) History of coronary artery stent placement (Chronic 07/22/18) PCI-MARIUM Prox OM1 w/ 2.5 x 12 mm Elunir, MARIUM-Prox LCx w/ 2.5 x 12 mm Elunir LXT-DJY-Pcjh LAD w/ 2.5 x 8 mm Resolute Integrity 07/22/18 MARIUM-Prox OM1 w/ 2.75 x 12 mm Xience Alpine Stent 04/15/2014 YEK-CHQ-Mmom LAD w/ 3.5 x 12 mm Xience Xpedition and MARIUM-Prox LCx w/ 3.5 x 8 mm Xience Xpedition 08/11/2013 UDZ-GIO-Ubge Main w/ 3.0 x 16 mm Taxus Stent and MARIUM-Prox OM1 w/ 2.5 x 16 mm Taxus 11/20/2005 History of ventricular tachycardia (Chronic) Chronic renal failure, stage 4 (severe) (Chronic) Ischemic cardiomyopathy (Chronic) Right bundle branch block (Chronic) Complete AV block, 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 Lungs are otherwise clear. Electronically Signed: Kamran Tafoya, at 13:41 EST Tel , Service support , Brain CT 02/15/19 05:55 IMPRESSION: Evolving acute right MCA distribution infarction, which is increased in conspicuity but not visibly increased in size. No significant mass effect. No evidence for hemorrhage. Chronic involutional changes, as above. Electronically Signed: Irvin Kaplan MD at 5:34 EST , Service support , Dr. Fagan- Cardiology Tele-neurology Operations: None Procedures: None Summary of Care Provided: The patient is a 83 year old M admitted 02/14/2018 due to altered mental status and syncope. 1. Acute right MCA distribution infarct-resulting in left hemiparesis, dysphagia, left hemianopia. Tele-neurology consulted. Recommend continued dual antiplatelet therapy with aspirin and Plavix. Continue statin. No indication for oral anticoagulation at this time per cardiology. Pacemaker interrogation did not demonstrate any arrhythmia or atrial fibrillation. Carotid Doppler demonstrates less than 50% stenosis of the right internal carotid, greater than 50% stenosis right external carotid, less than 50% stenosis left internal carotid, greater than 50% stenosis left external carotid. Recent Echocardiogram 12/08/18 demonstrated an EF 20%, stage 3 diastolic dysfunction. Unable to obtain MRI due to pacemaker. PT/OT/ST. Continue dietary modifications per speech therapy recommendations. Plan for SNF at discharge for further therapy. Follow up with neurology in 2 weeks. 2. Altered mental status, unclear etiology-suspect secondary to #1. Chest x-ray unremarkable. UA unremarkable. 3. Elevated troponin-demand ischemia as a result of #1. Cardiology following. Recent echo as noted above. EKG without acute changes. 4. History of CAD status post CABG/stents-continue medical management. 5. Chronic ischemic cardiomyopathy with EF 20%-no acute CHF. 6. Chronic kidney disease stage IV-at baseline. 7. Type 2 diabetes mellitus-continue home oral regimen. 8. Blast cells positive on initial CBC-outpatient follow-f/u PCP, refer to hematology if appropriate. 9. BPH-continue Flomax, finasteride regimen. General: Alert, Cooperative, No apparent distress HEENT: Atraumatic, PERRLA, EOMI, Normocephalic Oral: Dry Mucosa Neck: Supple, No JVD, Negative Carotid Bruits Lungs: Clear to auscultation, Diminished Cardiovascular: Regular rate, Regular Rhythm, Normal S1, Normal S2 Abdomen: Bowel Sounds Present, Soft, Non Tender, Non-Distended Extremities: No clubbing, No cyanosis, No edema, Capillary Refill Less than 3 Seconds Skin: No rashes, No breakdown Musculoskeletal: No Tenderness to Palpation of Joints or Extremities Neurological: Cranial nerves II-XII grossly intact, - - Partial hemianopia left eye, dysphagia, left-sided hemiplegia. Psych/Mental Status: Normal Affect, Appropriate Patient seen and examined prior to discharge. Physical assessment as noted above. Patient is stable for discharge with follow up recommendations as noted above. This patient was seen by VIKKI Burton under the supervision of Dr. Dang. - Physical Exam Vitals/I&O's: Vital Signs Temp Pulse Resp BP Pulse Ox 97.8 F 74 24 H 154/72 H 98 02/16/19 10:11 02/16/19 10:11 02/16/19 10:11 02/16/19 10:11 02/16/19 10:11 Oxygen Delivery Method Room Air Weight: 171 lb 15.369 oz Body Mass Index (BMI) 27.7 Intake and Output for Last 24 Hours 02/14/19 02/15/19 02/16/19 23:59 23:59 23:59 Intake Total 0 / 0 1000 / 1000 Output Total 250 / 250 50 / 50 250 / 250 Balance -230 / -230 -50 / -50 750 / 750 Laboratory Results 02/15/19 06:15: Diff Path Review Reviewed 02/15/19 11:47: POC Glucose 155 H 02/15/19 16:09: POC Glucose 142 H 02/15/19 22:53: POC Glucose 143 H 02/16/19 03:50: Urine Color Yellow, Urine Clarity Clear, Urine pH 5.0, Ur Specific [place] 1.020, Urine Protein 100 H, Urine Glucose (UA) Normal, Urine Ketones 50 H, Urine Occult Blood 25 H, Urine Nitrite Negative, Urine Bilirubin Negative, Urine Urobilinogen Normal, Ur Leukocyte Esterase Negative, Urine RBC 0-5 SEEN, Urine WBC 0 SEEN, Ur Squamous Epith Cells 0 SEEN, Amorphous Sediment RARE, Urine Bacteria RARE, Hyaline Casts 0-5 SEEN, Urine Mucus 0 SEEN 02/16/19 05:40: WBC 6.1, RBC 4.38 L, Hgb 12.9 L, Hct 40.9, MCV 93.4, MCH 29.5, MCHC 31.5 L, RDW Std Deviation 54.8 H, RDW Coeff of Iam 15.9 H, Plt Count 368, MPV 10.1 02/16/19 05:40: Sodium 145, Potassium 4.3, Chloride 113 H, Carbon Dioxide 26.0, Anion Gap 6, BUN 39 H, Creatinine 2.53 H, Estim Creat Clear Calc 20.31, Est GFR (MDRD) Af Amer 32 L, Est GFR (MDRD) Non-Af 26 L, BUN/Creatinine Ratio 15.4, Glucose 143 H, Calcium 9.2 02/16/19 06:51: POC Glucose 137 H 02/16/19 12:07: POC Glucose 200 H Current Medications Acetaminophen (Tylenol) 650 mg PO Q6H PRN PRN PRN Reason: Pain Score 1-3/Temp > 100.7 F Aspirin (Aspirin, Baby) 81 mg PO DAILY@0800 TORREY Last Admin: 02/16/19 10:04 Dose: 81 mg Documented by: Carvedilol (Coreg) 3.125 mg PO BID [facility] Last Admin: 02/16/19 10:04 Dose: 3.125 mg Documented by: Clopidogrel Bisulfate (Plavix) 75 mg PO DAILY [facility] Last Admin: 02/16/19 10:04 Dose: 75 mg Documented by: Colestipol HCl (Colestid Tablet) 1 gm PO DAILY [facility] Last Admin: 02/16/19 10:04 Dose: 1 gm Documented by: Finasteride (Proscar) 5 mg PO DAILY [facility] Last Admin: 02/16/19 10:03 Dose: 5 mg Documented by: Folic Acid (Folic Acid) 5 mg PO DAILY@0800 [facility] Last Admin: 02/16/19 10:04 Dose: 5 mg Documented by: Furosemide (Lasix) 20 mg IV DAILY [facility] Last Admin: 02/16/19 08:26 Dose: 20 mg Documented by: Glucagon () 1 mg IM .X1 PRN PRN Reason: Hypoglycemia Heparin Sodium (Porcine) (Heparin Na) 5,000 unit SC Q8 [facility] Last Admin: 02/16/19 06:07 Dose: 5,000 unit Documented by: Sodium Chloride () 250 mls @ 15 mls/hr IV .[id number] PRN PRN Reason: Saline Flush Sodium Chloride () 1,000 mls @ 75 mls/hr IV .[id number] [facility] Last Admin: 02/16/19 06:04 Dose: 75 mls/hr Documented by: Dextrose (Dextrose 10%-Water) 250 mls @ 999 mls/hr IV X1 PRN; Protocol PRN Reason: HYPOGLYCEMIA Insulin Human Lispro (Humalog Kwikpen (Bkc)) 0 unit SC ACHS [facility]; Protocol Last Admin: 02/16/19 12:08 Dose: 1 u Documented by: Isosorbide Mononitrate (Imdur) 60 mg PO QHS [facility] Last Admin: 02/15/19 22:54 Dose: Not Given Documented by: Morphine Sulfate () 2 mg IV Q3H PRN PRN PRN Reason: Pain Score 1-10/10 Last Admin: 02/15/19 18:08 Dose: 2 mg Documented by: Nitroglycerin (Nitrostat) 0.4 mg SUBLINGUAL Q5M PRN PRN Reason: CARDIAC/CHEST PAIN Ondansetron HCl (Zofran) 4 mg IV Q8H PRN PRN PRN Reason: NAUSEA/VOMITING Sodium Chloride () 10 - 40 ml IV UD PRN PRN Reason: SALINE FLUSH Last Admin: 02/15/19 18:08 Dose: 10 ml Documented by: Tamsulosin HCl (Flomax) 0.4 mg PO DAILY@1730 TORREY Last Admin: 02/15/19 13:02 Dose: Not Given Documented by: Home Medications: Medications to take at Discharge Aspirin [Aspirin, Baby] 81 mg PO DAILY@0800 02/14/19 Carvedilol [Coreg] 3.125 mg PO BID 02/14/19 Clopidogrel Bisulfate [Clopidogrel] 75 mg PO DAILY 02/14/19 Colestipol Tablet [Colestid Tablet] 1 gm PO DAILY 02/14/19 Finasteride [Proscar] 5 mg PO DAILY 02/14/19 Focus Factor 1 tab PO BID 02/14/19 Folic Acid 5 mg PO DAILY 02/14/19 Furosemide 60 mg PO DAILY 02/14/19 Glimepiride [Amaryl] 2 mg PO DAILY PRN 02/14/19 Guaifenesin [Mucinex] 600 mg PO BID 02/14/19 Isosorbide Mononitrate [Isosorbide Mononitrate ER] 60 mg PO QHS 02/14/19 Rem Fresh 0.5 tab PO QHS 02/14/19 Tamsulosin HCl [Flomax] 0.4 mg PO DAILY 02/14/19 Ubidecarenone [Coq-10] 100 mg PO DAILY 02/14/19 l Gasseri/B Bifidum/B Longum [[facility] Health Capsule] 2 cap PO QHS 02/14/19 Hydrocodone/Acetaminophen [Hydrocodone-Acetamin 5-325 mg] 1 tab PO BID 2 Days #4 tab 02/16/19 Following Prescrptions Were Given to Patient: Hydrocodone/Acetaminophen [Hydrocodone-Acetamin 5-325 mg] 1 tab PO BID 2 Days #4 tab Prescription Printed Primary Care Physician: Salima Tuttle MD [Primary Care Provider] - Please follow up with your Primary Care Physician in: 1 Week Please Follow Up With: David Fagan MD When: 2 Weeks, may see MEDIA PLANNER / BUYER/PA Please Follow Up With: Kings Thomas MD - Neurology When: 2 Weeks, may see MEDIA PLANNER / BUYER Disposition: Shelter facility Minutes spent on discharge:: 35 Patient Condition:: Stable Medical Necessity - Tobacco Use Smoking Status: Former smoker Tobacco Use: Non-smoker Meaningful Use Info Meaningful Use Diagnoses (Choose all that apply): Ischemic CVA - CVA Therapy Assessed for PT,OT and/or ST?: Yes - Ischemic Stroke Antithrombotic order at d/c?: Yes Dx of Atrial fib/flutter?: No Statins at discharge?: Yes Primary Dx Acute Ischemic CVA?: Yes IV tPA ordered during stay?: No Reason IV t-PA not ordered: Medical Contraindication <Mike Dang - Last Filed: 02/16/19 13:29> Discharge Date and Diagnosis - Secondary Discharge Diagnosis Chronic Problems (Last Updated 02/15/19 @ 14:40 by Mike Dang MD) Atherosclerosis of coronary artery bypass graft without angina pectoris (Chronic) PCI-MARIUM Prox OM1 w/ 2.5 x 12 mm Elunir, MARIUM-Prox LCx w/ 2.5 x 12 mm Elunir NLC-UVK-Levh LAD w/ 2.5 x 8 mm Resolute Integrity 07/22/18 MARIUM-Prox OM1 w/ 2.75 x 12 mm Xience Alpine Stent 04/15/2014 IIT-QKW-Pzox LAD w/ 3.5 x 12 mm Xience Xpedition and MARIUM-Prox LCx w/ 3.5 x 8 mm Xience Xpedition 08/11/2013 HWG-IVH-Dzsq Main w/ 3.0 x 16 mm Taxus Stent and MARIUM-Prox OM1 w/ 2.5 x 16 mm Taxus 11/20/2005; CABG x 2: RUSH-LAD, SVG-LCx 06/17/05 H/O coronary artery bypass surgery (Chronic 06/17/05) CABG x 2: RUSH-LAD, SVG-LCx 06/17/05 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) Essential (primary) hypertension (Chronic) History of coronary artery stent placement (Chronic 07/22/18) PCI-MARIUM Prox OM1 w/ 2.5 x 12 mm Elunir, MARIUM-Prox LCx w/ 2.5 x 12 mm Elunir BEL-UZO-Hftv LAD w/ 2.5 x 8 mm Resolute Integrity 07/22/18 MARIUM-Prox OM1 w/ 2.75 x 12 mm Xience Alpine Stent 04/15/2014 OFA-OMV-Clhf LAD w/ 3.5 x 12 mm Xience Xpedition and MARIUM-Prox LCx w/ 3.5 x 8 mm Xience Xpedition 08/11/2013 ZUB-WKD-Mwop Main w/ 3.0 x 16 mm Taxus Stent and MARIUM-Prox OM1 w/ 2.5 x 16 mm Taxus 11/20/2005 History of ventricular tachycardia (Chronic) Chronic renal failure, stage 4 (severe) (Chronic) Ischemic cardiomyopathy (Chronic) Right bundle branch block (Chronic) Complete AV block, 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) HLD (hyperlipidemia) (Chronic) Hospital Course and Treatment Summary of Care Provided: Hospitalist note: Discharge summary above reviewed and I concur with the above discharge and treatment plan. Patient presented to the emergency room because of change in mental status and fall, found to have left-sided weakness and also found to have acute right MCA infarct with resultant minimal left side hemiparesis as well as left hemianopsia. Upon arrival to ED, CT scan brain revealed loss of zuniga-white matter differentiation in the lateral right frontal lobe suspicious for acute infarct. MRI brain was not done because patient had pacemaker implanted. Repeat CT scan brain done next day and revealed evolving acute right MCA infarct with no evidence of mass-effect or intracerebral hemorrhage. Patient started on aspirin p.o., Plavix and statins. Tele-neurology was consulted and recommended to continue dual antiplatelet therapy with aspirin and Plavix as well as statins. Patient had pacemaker interrogation done that demonstrated no evidence of atrial fibrillation or cardiac arrhythmias. There was no indication to start patient on anticoagulation. Bilateral carotid Doppler done and findings reviewed as above. Patient had recent 2D echocardiogram on December, that revealed severely dilated left ventricle, ejection fraction of 20% and stage III diastolic dysfunction. Patient was found to have borderline elevated troponin which was attributed to demand ischemia and acute stroke. EKG showed no ischemic changes. Patient discharged to long term facility in a stable medical condition, discharged on aspirin, Plavix and statins, continued on his previous home medications without any changes, plan to follow-up with neurology in 2 weeks and follow-up with PCP in 1 week. - Physical Exam General: Alert, Oriented x3, cooperative, No apparent distress. HEENT: Atraumatic, PERRLA, EOMI. Neck: Supple, No JVD, Negative Carotid Bruits, Trachea Midline, Thyroid Normal. Lungs: Diminished breath sounds bilateral, otherwise clear, No rhonchi, No wheeze, No rales. Cardiovascular: Regular rate, Regular Rhythm, Normal S1, Normal S2, PMI Normal. Abdomen: Bowel Sounds Present, Soft, Non Tender, Non-Distended, No Hepato-splenomegaly. Extremities: No clubbing, No cyanosis, No edema Skin: No rashes, No breakdown Neurological: Left facial droop, minimal left side body hemiparesis. Vital Signs are stable. This note was generated with [employer] dictation software. It may contain incorrect words, spelling, and punctuation that were not noted in checking the note before signing. - Physical Exam Vitals/I&O's: Vital Signs Temp Pulse Resp BP Pulse Ox 97.8 F 74 24 H 154/72 H 98 02/16/19 10:11 02/16/19 10:11 02/16/19 10:11 02/16/19 10:11 02/16/19 10:11 Oxygen Delivery Method Room Air Weight: 171 lb 15.369 oz Body Mass Index (BMI) 27.7 Intake and Output for Last 24 Hours 02/14/19 02/15/19 02/16/19 23:59 23:59 23:59 Intake Total 20 / 20 0 / 0 1498.75 / 1498.75 Output Total 250 / 250 50 / 50 250 / 250 Balance -230 / -230 -50 / -50 1248.75 / 1248.75 Laboratory Results 02/15/19 06:15: Diff Path Review Reviewed 02/15/19 16:09: POC Glucose 142 H 02/15/19 22:53: POC Glucose 143 H 02/16/19 03:50: Urine Color Yellow, Urine Clarity Clear, Urine pH 5.0, Ur Specific [place] 1.020, Urine Protein 100 H, Urine Glucose (UA) Normal, Urine Ketones 50 H, Urine Occult Blood 25 H, Urine Nitrite Negative, Urine Bilirubin Negative, Urine Urobilinogen Normal, Ur Leukocyte Esterase Negative, Urine RBC 0-5 SEEN, Urine WBC 0 SEEN, Ur Squamous Epith Cells 0 SEEN, Amorphous Sediment RARE, Urine Bacteria RARE, Hyaline Casts 0-5 SEEN, Urine Mucus 0 SEEN 02/16/19 05:40: WBC 6.1, RBC 4.38 L, Hgb 12.9 L, Hct 40.9, MCV 93.4, MCH 29.5, MCHC 31.5 L, RDW Std Deviation 54.8 H, RDW Coeff of Iam 15.9 H, Plt Count 368, MPV 10.1 02/16/19 05:40: Sodium 145, Potassium 4.3, Chloride 113 H, Carbon Dioxide 26.0, Anion Gap 6, BUN 39 H, Creatinine 2.53 H, Estim Creat Clear Calc 20.31, Est GFR (MDRD) Af Amer 32 L, Est GFR (MDRD) Non-Af 26 L, BUN/Creatinine Ratio 15.4, Glucose 143 H, Calcium 9.2 02/16/19 06:51: POC Glucose 137 H 02/16/19 12:07: POC Glucose 200 H Disposition: Shelter facility Minutes spent on discharge:: 32 Patient Condition:: Stable Meaningful Use Info Meaningful Use Diagnoses (Choose all that apply): Ischemic CVA - CVA Therapy Assessed for PT,OT and/or ST?: Yes - Ischemic Stroke Antithrombotic order at d/c?: Yes Dx of Atrial fib/flutter?: No Statins at discharge?: Yes Primary Dx Acute Ischemic CVA?: Yes IV tPA ordered during stay?: No Reason IV t-PA not ordered: Medical Contraindication Code Visit Inpatient E&M: [id number] Disch Hosp
[2019-02-16 13:32] VITALS: BMI 27.7
== END 2019-02-16 13:06 | disposition skilled nursing facility (03) | DRG 65 ==
LOC: ED 11:10 → PCU 13:47
PROVIDERS: Family Medicine; Nurse Practitioner Family; Admitting Provider Internal Medicine; Emergency Provider Emergency Medicine; Family Provider Family Medicine; PCP Family Medicine; Visit Provider Hospitalist
DX: I63.511 Cerebral infarction due to unspecified occlusion or stenosis of right middle cerebral artery (principal); G93.49 Other encephalopathy; G81.94 Hemiplegia, unspecified affecting left nondominant side; I50.22 Chronic systolic (congestive) heart failure; I13.0 Hypertensive heart and chronic kidney disease with heart failure and stage 1 through stage 4 chronic kidney disease, or unspecified chronic kidney disease; N18.4 Chronic kidney disease, stage 4 (severe); R13.10 Dysphagia, unspecified; H53.47 Heteronymous bilateral field defects; Z95.5 Presence of coronary angioplasty implant and graft; Z95.0 Presence of cardiac pacemaker; Z79.02 Long term (current) use of antithrombotics/antiplatelets; Z79.82 Long term (current) use of aspirin; R55 Syncope and collapse; I25.10 Atherosclerotic heart disease of native coronary artery without angina pectoris; Z95.1 Presence of aortocoronary bypass graft; Z87.891 Personal history of nicotine dependence; R29.703 NIHSS score 3; I25.5 Ischemic cardiomyopathy; E11.22 Type 2 diabetes mellitus with diabetic chronic kidney disease; Z79.84 Long term (current) use of oral hypoglycemic drugs; N40.0 Benign prostatic hyperplasia without lower urinary tract symptoms; E78.5 Hyperlipidemia, unspecified; I25.2 Old myocardial infarction
CPT/HCPCS: 36415; 70450; 71045; 80048; 80053; 80061; 81001; 82550; 82962; 83880; 84443; 84484; 85025; 85027; 92523; 92526; 92610; 93005; 93880; 94762; 97116; 97163; 97166; 97530; 97535; 97802; 99285; J7030; A4216; J1940

== ENCOUNTER → 2019-05-13 | Outpatient (CLI) | payer MEDICARE, SELFPAY ==
[2019-05-13 09:04] VITALS: BMI 26.1
--- NOTE | 2019-05-13 10:14 | RAD_ITS ---
HISTORY: SOB, tightness, weakness, coughhx of stroke Dec 2 EXAM: XR Chest 2 Views: COMPARISON: February 14, 2019 FINDINGS: # of images incl. paperwork: 2 Left chest wall electrical device with left subclavian sternal wires remains in place Multiple sternal wires remain. All but the top 2 wires have broken. Some mediastinal clips are present. Calcific plaque within the atherosclerotic aortic arch remains. Pulmonary expansion is improved. Blunting left lateral costophrenic sulcus is the same. Heart is enlarged. The left ventricle remains enlarged. Cholecystectomy clips remain Thoracic spondylosis remains mild Pulmonary vascularity is distinct. Possible left pleural effusion versus pleural scarring RAD/Chest PA and Lateral IMPRESSION: Improved pulmonary expansion with decreased pulmonary edema. Persistent left ventricular hypertrophy. at 0559 Reported and signed by: Carlos Hernández MD Electronically Signed: Carlos Hernández MD at 5:58 EST Tel , Service support ,
[2019-05-13 11:11] LABS: Hematocrit 38.7 % (40-54); Hemoglobin 12.3 g/dL (13.0-16.5); Mean Corp Hgb Conc 31.8 g/dL (32-36); Mean Corpuscular Hgb 28.5 pg (27.0-32.0); Mean Corpuscular Volume 89.8 fL (80-94); Mean Platelet Vol. 10.2 fl (6.2-12.0); POSITIVE COUNT YES; POSITIVE MORPHOLOGY YES; Platelet Count 348 K/mm3 (150-450); RBC Distribution Width CV 16.7 % (11.6-14.6); RBC Distribution Width SD 53.9 fl (35.1-43.9); Red Blood Count 4.31 M/mm3 (4.6-6.2); White Blood Count 4.8 K/mm3 (4.4-11.0)
[2019-05-13 11:12] LABS: Differential Indicated MANUAL DIFF
[2019-05-13 11:39] LABS: BNP,B-Type NATRIURETIC PEPTIDE 636.4 pg/mL (0-100)
[2019-05-13 11:40] LABS: Anion Gap 6 (5-15); BUN 51 mg/dL (7-18); BUN/Creat Ratio 16.8 RATIO (10-20); Calcium,Total 9.6 mg/dL (8.5-10.1); Chloride 104 mmol/L (98-107); Creatinine, Serum 3.03 mg/dL (0.70-1.30); EST Glomerular Filtration Rate 21 mL/min (>60); Est Glom Filt Rate - Afr Amer 26 mL/min (>60); Glucose 206 mg/dL (74-106); Potassium 4.7 mmol/L (3.5-5.1); Sodium Level 140 mmol/L (136-145)
[2019-05-13 11:42] LABS: Eosinophil 5 % (0-5); Lymphocyte 19 % (19-41); Monocyte 14 % (0-10); Neutrophil-Segmented 62 % (47-70); Platelet Estimate ADEQUATE (ADEQ); Total Cells Counted 100 (MANUAL DIFF)
[2019-05-13 11:43] LABS: Absolute Neutrophil Count 2.9 X10^3/uL (2.0-7.7); Red Cell Morphology NORM C+C NORMAL (NORM C&C)
[2019-05-17 10:06] LABS: Pathologist Review Reviewed
== END | disposition home or self-care (01) ==
PROVIDERS: PCP Family Medicine; Referring Provider Nurse Practitioner Family; Visit Provider Nurse Practitioner Family
DX: E78.00 Pure hypercholesterolemia, unspecified (principal); I25.5 Ischemic cardiomyopathy; I25.810 Atherosclerosis of coronary artery bypass graft(s) without angina pectoris; I11.0 Hypertensive heart disease with heart failure; I50.42 Chronic combined systolic (congestive) and diastolic (congestive) heart failure; Z95.0 Presence of cardiac pacemaker; Z95.1 Presence of aortocoronary bypass graft; Z95.5 Presence of coronary angioplasty implant and graft
CPT/HCPCS: 36415; 71046; 80048; 83880; 85025

== ENCOUNTER → 2019-07-06 | Outpatient (CLI) | payer MEDICARE, SELFPAY ==
[2019-05-13 09:04] VITALS: BMI 26.1
[2019-07-06 18:07] LABS: AST(SGOT) 11 U/L (15-37); Alanine Aminotransfer ALT/SGPT 18 U/L (16-61); Albumin, Serum 3.8 g/dL (3.2-5.0); Alkaline Phosphatase 69 U/L (45-117); Anion Gap 7 (5-15); BUN 40 mg/dL (7-18); BUN/Creat Ratio 13.9 RATIO (10-20); Calcium,Total 9.1 mg/dL (8.5-10.1); Chloride 108 mmol/L (98-107); Cholesterol 130 mg/dL (200); Creatinine, Serum 2.88 mg/dL (0.70-1.30); EST Glomerular Filtration Rate 22 mL/min (>60); Est Glom Filt Rate - Afr Amer 27 mL/min (>60); Globulin 2.7 g/dL (2.2-4.2); Glucose 231 mg/dL (74-106); High Density Lipoprotein 34 mg/dL; Potassium 4.4 mmol/L (3.5-5.1); Protein, Total 6.5 g/dL (6.4-8.2); Sodium Level 142 mmol/L (136-145); Triglycerides 230 mg/dL; Very Low Density Lipoprotein 46 mg/dL (5-40)
[2019-07-06 18:18] LABS: Microalbumin:Creatinine Ratio 555.4 mg/g CRE (<30 mg/g CRE)
== END | disposition home or self-care (01) ==
LOC: MTLAB 16:30
PROVIDERS: Nurse Practitioner Family; PCP Family Medicine; Referring Provider Family Medicine; Visit Provider Family Medicine
DX: I67.9 Cerebrovascular disease, unspecified (principal); E11.8 Type 2 diabetes mellitus with unspecified complications; I25.10 Atherosclerotic heart disease of native coronary artery without angina pectoris; Z86.73 Personal history of transient ischemic attack (TIA), and cerebral infarction without residual deficits
CPT/HCPCS: 36415; 80048; 80061; 80076; 82043; 82570; 97110

== ENCOUNTER 2019-07-20 12:00 | Outpatient (RCR) | payer MEDICARE, SELFPAY ==
[2019-05-13 09:04] VITALS: BMI 26.1
--- NOTE | 2019-06-14 15:43 | HP.PTEVAL ---
Patient's Visit Information JOSIAS GUERRA is a 83 year old M referred to Physical Therapy by Dr. Salima Tuttle MD with a diagnosis of CVA. Date of Evaluation: 06/14/19 Physical Therapist: Harpreet Angeles DPT, OCS, CSCS - Visit Plan Frequency: 3x /Week Duration: 4-6 Weeks Plan: 3x/week for 3-6 weeks for : 1. Gait and balance training. 2. stretch HS adn gastroc. 3. LE strength and postural strength adn progress to HEP as safety allows. Pt has pacemaker and fatigues easily. He may cancel visits if he really has a 40$ copay which he disputes today and he will call his insurance company. - Subjective Subjective: Had a stroke and was in [facility] for 3 weeks having therapy. February 09 had stroke getting ready for work. Could not get up all of a sudden and fell down. In hospital diagnosed with stroke, [facility] 14 days and now has been home a while. Having therapy there but it is closed. Had occupational and physical therapy for strength. Was slowly improving. It ended about 3 weeks ago and has been at home trying to walk but not much exercise. Has a bike stationary that he rides. Sleeping is OK. No pain. Feels fatigued very easily. Lives with . 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 Has confusion with his stroke that woud keep him from doing that. Watchint traffic makes head hurt. Dresses self but helps now.. Hard to get R leg in pants. L side was effected in stroke and it still feels weak. Spends day siting most of time. Uses cane in R UE as it makes him feel safer. No falls but feels like balance is off. No stairs at home, two to get in and out with railing and has to be careful. - Objective Walks slowly but mod I with cane in R UE. Walks without AD hesitantly but I slow. trasnition out of chair using UE. Steps require 2 rails and prefers R ascending adn L descending. Sit to supine needing min A to scoot on narrow table. HS very tight at -45 90/90 test B. Gastroc to 0 DF barely. Otherwise aROM at LE WFL. Strength LE 4- L LE and 4 R LE. reflexes 1/3 patella and achilles. Sensation WNL to gross light touch in LE. Coordination to reciprocal to a tap and heel tap are as expected for 84 yo. UE AROM WFL but slow movement and 3+ strength L UE vs 4- R. Overall slow movement and labored. Mild SOB at top of steps and needed a quick rest. - Balance Scores Functional Gait Assessment Score: 21 % Disability: 30.0000 - Goals Goal 1:: FGa to diminish fall risk Goal Time Frame: 4-6 Weeks Goal 2:: Patient able to trasnfer without UE chair and bed and steps with one rail reciprocally Goal Time Frame: 4-6 Weeks Goal 3:: I approp HEP to cotninue to make progress via HEP Goal Time Frame: 4-6 Weeks Goal 4:: LEFS < 50% deficits Goal Time Frame: 4-6 Weeks - Rehabilitation Potential Physical Therapy Diagnosis: post CVA, wekaness and unsteadiness. Rehabilitation Potential: Fair - Anticipated Interventions Patient/Client Instruction: Educate patient on: Condition, Plan of Care For the Purpose of:: To increase tolerance to activity/condition/position, To improve gait and locomotor functions Therapeutic Exercise to Include: Strength training, Balance training, Flexibilty training, Gait and locomotor training, Neuromotor development For the Purpose of:: To increase ROM, To improve muscle performance and motor function, To increase tolerance to activity/condition/position, To improve gait and locomotor functions Thank you for the opportunity to evaluate your patient. For Medicare and Medicare HMO plans, please review the plan of care and approve it. It will need to be FAXED BACK to us at [phone] for Medicare purposes. For Medicare only, by signing this I certify the plan of care. Please let me know if there are questions or concerns regarding this plan of care. Physician Signature: Date:
--- NOTE | 2019-07-15 13:31 | HP.PTREVAL ---
Dr. Salima Tuttle MD, It has been my pleasure to treat JOSIAS GUERRA over the last 13 visits for CVA. Please see the progress note below for an update on the physical therapy plan of care! Subjective: Getting stronger, Can do more. Machines are getting easier. Doing a little more at home also. Enjoys reading. Chair is rocker at home and still a harder to get out of at home. Bed mobility is OK. still helps with foot in pants. No walker or cane needed anymore. No falls. Balance is better. Walks at home. Would like to get feet in pants , hard to bend L leg still right now. Pulling on band at home as wella s counter ex. Objective/Function: +2 on FGA and going the right way with balance. Safe on firm flat surface. SLS is poor. Steps are reciprocal but obvious weakness after 5-6 steps adn needs two railing after 5 steps. Diminished eccentric control descending. Transfers out of short table easily without UE. GOING THE RIGHT WAY AND APPROPRIATE TO COTNINUE WITH FAIR PROGNOSIS. Plan Plan: 3X/WEEK FOR 3 WEEKS FOR CONTINUED STRENGTH, GAIT, STEPS, BALANCE AND WORK ON ADL OF GETTING PANTS ON I. Work toward I gym program for Silver sneakers. New goal set adn fair prognosis. this plan explained and agreed upon by adn patient today. Goals Goal 1:: FGa to diminish fall risk Goal Time Frame: 4-6 Weeks Goal Progress: Progressing Goal 2:: Patient able to trasnfer without UE chair and bed and steps with one rail reciprocally Goal Time Frame: 4-6 Weeks Goal Progress: CHAIR, NOT STEPS YET. Goal 3:: I approp HEP to cotninue to make progress via HEP Goal Time Frame: 4-6 Weeks Goal Progress: Goal Met Goal 4:: LEFS < 50% deficits Goal Time Frame: 4-6 Weeks Goal Progress: Goal Met Goal 5:: pULL PANTS ON i Goal Time Frame: 2-4 Weeks Goal Progress: New goal Goal 6:: I approp gym based silver sneakers ex Goal Time Frame: 2-4 Weeks Goal Progress: New goal Anticipated Interventions Patient/Client Instruction: Educate patient on: Condition, Plan of Care For the Purpose of:: To increase tolerance to activity/condition/position, To improve gait and locomotor functions Therapeutic Exercise to Include: Strength training, Balance training, Flexibilty training, Gait and locomotor training, Neuromotor development For the Purpose of:: To increase ROM, To improve muscle performance and motor function, To increase tolerance to activity/condition/position, To improve gait and locomotor functions Please do not hesitate to contact me at [phone] by phone or if you have questions or concerns regarding this new plan of care! Sincerely, Harpreet Angeles, DPT, OCS, CSCS
--- NOTE | 2019-09-21 11:18 | HP.PT.NRP ---
JOSIAS GUERRA was seen in my office for initial evaluation on 06/14/19. The following Plan of Care was established for this patient: Initial Frequency: 3x /Week Initial Duration: 4-6 Weeks Patient/Client Instruction: Educate patient on: Condition, Plan of Care For the Purpose of:: To increase tolerance to activity/condition/position, To improve gait and locomotor functions Therapeutic Exercise to Include: Strength training, Balance training, Flexibilty training, Gait and locomotor training, Neuromotor development For the Purpose of:: To increase ROM, To improve muscle performance and motor function, To increase tolerance to activity/condition/position, To improve gait and locomotor functions This patient was last seen in our office 07/20/19. Pertinent comments regarding their Physical therapy will appear below: Pt seen 14 visits and was improving. We had just started a new POC for 3 more weeks but pt attended one visit and then did not return. at this point, it has been over two months and I will disocntinue due to nonattendance. At this point I will be discontinuing this patient from physical therapy. I would be happy to see this patient again in the future if found appropriate by the physician. Thank you! Harpreet Angeles, DPT, OCS, CSCS
== END 2019-07-20 19:00 | disposition home or self-care (01) ==
LOC: PT 12:00
PROVIDERS: PCP Family Medicine; Referring Provider Family Medicine; Visit Provider Family Medicine
DX: Z86.73 Personal history of transient ischemic attack (TIA), and cerebral infarction without residual deficits (principal); I25.10 Atherosclerotic heart disease of native coronary artery without angina pectoris
CPT/HCPCS: 97110; 97116; 97162; 97164

== ENCOUNTER → 2019-07-25 | Outpatient (CLI) | payer MEDICARE, SELFPAY ==
[2019-05-13 09:04] VITALS: BMI 26.1
--- NOTE | 2019-07-25 14:37 | RAD_ITS ---
STUDY: X-RAY CHEST REASON FOR EXAM: Male, 84 years old. CHEST PAIN TECHNIQUE: PA and lateral views of the chest. COMPARISON: 05/13/2019 FINDINGS: Stable appearance of the left subclavian pacemaker Chronic interstitial changes in both lung oneal. Right lung is free of superimpose acute process. There is stable left pleural thickening and blunting of the left costophrenic angle likely sequela from trauma or previous surgery. Sternal cerclage wires and vascular clips are present from a prior sternotomy and coronary artery bypass graft procedure (CABG). Normal mediastinum and jose antonio. Normal visualized pulmonary arteries. There is atherosclerotic calcification of the aortic arch with tortuosity. There are diffuse degenerative changes of the visualized thoracic spine. Normal visualized ribs, clavicles, and shoulders. There is no demonstrated abnormality of the visualized soft tissue structures of the upper abdomen. RAD/Chest PA and Lateral IMPRESSION: Degenerative changes, as described above. No demonstrated acute cardiopulmonary process. No interval change Electronically Signed: Vamshi Krishnamurthy MD at 14:49 EDT , Service support ,
[2019-07-25 15:36] LABS: Anion Gap 6 (5-15); BUN 35 mg/dL (7-18); BUN/Creat Ratio 13.9 RATIO (10-20); Calcium,Total 9.2 mg/dL (8.5-10.1); Chloride 108 mmol/L (98-107); Creatinine, Serum 2.52 mg/dL (0.70-1.30); EST Glomerular Filtration Rate 26 mL/min (>60); Est Glom Filt Rate - Afr Amer 32 mL/min (>60); Glucose 248 mg/dL (74-106); Potassium 4.2 mmol/L (3.5-5.1); Sodium Level 144 mmol/L (136-145)
== END | disposition home or self-care (01) ==
LOC: MTLAB 14:34
PROVIDERS: PCP Family Medicine; Referring Provider Nurse Practitioner Family; Visit Provider Nurse Practitioner Family
DX: R79.89 Other specified abnormal findings of blood chemistry (principal); I25.810 Atherosclerosis of coronary artery bypass graft(s) without angina pectoris; I25.5 Ischemic cardiomyopathy; I45.10 Unspecified right bundle-branch block; I44.2 Atrioventricular block, complete; I25.2 Old myocardial infarction; E78.5 Hyperlipidemia, unspecified; I13.0 Hypertensive heart and chronic kidney disease with heart failure and stage 1 through stage 4 chronic kidney disease, or unspecified chronic kidney disease; I50.42 Chronic combined systolic (congestive) and diastolic (congestive) heart failure; N18.4 Chronic kidney disease, stage 4 (severe); Z95.1 Presence of aortocoronary bypass graft; Z95.0 Presence of cardiac pacemaker; Z95.5 Presence of coronary angioplasty implant and graft; Z86.79 Personal history of other diseases of the circulatory system
CPT/HCPCS: 36415; 71046; 80048; 83880

== ENCOUNTER 2019-08-02 06:55 | Day surgery (SDC) | payer MEDICARE, SELFPAY ==
[2019-05-13 09:04] VITALS: BMI 26.1
--- NOTE | 2019-07-27 11:22 | HP.PCM_ITS ---
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 He has a history of CAD with multiple stenting procedures. He has a history of coronary artery disease with bypass surgery in 2005. He had an RUSH to the LAD, SVG to the circumflex. Heart catheterization in 2014 demonstrated widely patent stent in the proximal left main and proximal circumflex, 80% stenosis in the mid LAD, patent previously placed stent in the proximal circumflex, patent stent in the obtuse marginal, and patent RUSH to the LAD. 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 He has been intolerant to statins due to significant myalgias. With his continued complaints of her chest discomfort, shortness of breath and nitroglycerin use we did proceed with a heart catheterization. We previously had tried to medically manage it due to his kidney insufficiency. He did undergo stenting to his LAD, circumflex and OM1 in 07/2018. He was then seen by primary care physician in July 2019 who expressed concerning symptoms of shortness of breath and chest pain. He underwent radiological and laboratory evaluation to assess further. His medications were adjusted. Due to ongoing chest discomfort and need for nitroglycerin therapy, he will be evaluated further with a left heart catheterization. He was admitted to the hospital in February 2019 with a cerebrovascular accident. Carotid ultrasound demonstrated less than 50% stenosis bilateral internal carotid arteries. Pacemaker check did not demonstrate any evidence of atrial fibrillation. His natruretic peptide was noted to be elevated and troponin was also mildly elevated. An echocardiogram done demonstrated globally reduced left ventricular systolic function estimated at 20% with stage III diastolic dysfunction. He has recovered some of his function since he is gone home. He continues with chest pain and shortness of breath with activity. He acknowledges orthopnea and PND.He denies arm, jaw, or neck discomfort. His exercise tolerance is minimal He denies symptoms of palpitations, lightheadedness, dizziness, near syncope, or syncopal episodes. He denies edema or claudication issues. He denies fever, chills, blood in urine, blood in stool, or myalgia. Intake Vital Signs: See EMR Intake Visit Reasons: [facility] Physical Therapy Manager Required: No Is patient in pain?: No Allergies Penicillins Allergy (Verified 05/13/19 09:06) Anaphylaxis amlodipine [From Norvasc] Adverse Reaction (Intermediate, Verified 05/13/19 09:06) dizzy ezetimibe [From Zetia] Adverse Reaction (Verified 05/13/19 09:06) mylagias rosuvastatin calcium [From Crestor] Adverse Reaction (Verified 05/13/19 09:06) legs hurt Koaydil-Phi-Qmv Reductase Inhibitor Adverse Reaction (Verified 05/13/19 09:06) body aches Medications Aspirin [Aspirin, Baby] 81 mg PO DAILY@0800 02/14/19 [History Confirmed 03/25/19] Clopidogrel Bisulfate [Clopidogrel] 75 mg PO DAILY 02/14/19 [History Confirmed 03/25/19] Colestipol Tablet [Colestid Tablet] 1 gm PO DAILY 02/14/19 [History Confirmed 03/25/19] Finasteride [Proscar] 5 mg PO DAILY 02/14/19 [History Confirmed 03/25/19] Focus Factor 1 tab PO BID 02/14/19 [History Confirmed 03/25/19] Folic Acid 5 mg PO DAILY 02/14/19 [History Confirmed 03/25/19] Furosemide 60 mg PO DAILY 02/14/19 [History Confirmed 03/25/19] Glimepiride [Amaryl] 2 mg PO DAILY PRN 02/14/19 [History Confirmed 03/25/19] Guaifenesin [Mucinex] 600 mg PO BID 02/14/19 [History Confirmed 03/25/19] Isosorbide Mononitrate [Isosorbide Mononitrate ER] 60 mg PO QHS 02/14/19 [History Confirmed 03/25/19] Rem Fresh 0.5 tab PO QHS 02/14/19 [History Confirmed 03/25/19] Tamsulosin HCl [Flomax] 0.4 mg PO DAILY 02/14/19 [History Confirmed 03/25/19] Ubidecarenone [Coq-10] 100 mg PO DAILY 02/14/19 [History Confirmed 03/25/19] l Gasseri/B Bifidum/B Longum [[employer] Health Capsule] 2 cap PO QHS 02/14/19 [History Confirmed 03/25/19] Hydrocodone/Acetaminophen [Hydrocodone-Acetamin 5-325 mg] 1 tab PO BID 2 Days #4 tab 02/16/19 [Rx Confirmed 03/25/19] carvedilol 3.125 mg tablet 3.125 mg PO BID #180 tab 04/07/19 [Rx] PFSH Medical History Chronic combined systolic and diastolic CHF (congestive heart failure) (Chronic) Elevated troponin (Resolved 02/15/19) Stroke (Chronic 02/15/19) Atherosclerosis of coronary artery bypass graft without angina pectoris (Chronic) Essential (primary) hypertension (Chronic) History of ventricular tachycardia (Chronic) Chronic renal failure, stage 4 (severe) (Chronic) Ischemic cardiomyopathy (Chronic) Right bundle branch block (Chronic) Complete AV block, 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) HLD (hyperlipidemia) (Chronic) BPH (benign prostatic hyperplasia) (Chronic) Diaphragmatic hernia (Chronic) GERD (gastroesophageal reflux disease) (Chronic) History of nephrolithiasis (Chronic) Radiculitis of leg (Chronic) Type 2 diabetes mellitus (Chronic) Coronary atherosclerosis of [place] coronary artery (Inactive) NSTEMI (non-ST elevated myocardial infarction) (Inactive) Surgical History H/O coronary artery bypass surgery (Chronic 06/17/05) 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) History of coronary artery stent placement (Chronic 07/22/18) History of appendectomy (Resolved) History of back surgery (Resolved) History of tonsillectomy and adenoidectomy (Resolved) Family History Father Myocardial infarction Hypertension Heart disease Mother Hypertension Emphysema of lung FH: brain aneurysm Daughter Afib Social History (Updated 05/13/19 @ 11:18 by Ramon Sol NP-C) Smoking Status: Former smoker how long ago did patient quit smokin alcohol intake: never substance use type: does not use caffeine: Yes Type: coffee Number of servings: 3 what type of physical activity do you participate in: walking, bicycling frequency: daily duration: 30-45 minutes/day seatbelt use: always do you feel safe at home: Yes ROS Const Const: Positive for fatigue; negative for weakness, body ache, fever(s) or chills ENT ENT: Negative for dizziness Cardio Chest Pain: yes Palpitations: No Edema: None Muscle aches with walking: None Resp Respiratory: Positive for SOB with activity, SOB at rest, SOB orthopnea\SOB lying down, Cough and paroxysmal nocturnal dyspnea GI GI: Negative nausea, vomiting blood/hematemesis, bright, red blood in stools or black,tarry stools : Negative for hematuria or frequent nighttime urination/ nocturia Musc Musc: Negative for muscle aches/ myalgia Skin Skin: Negative non-healing lesions or rash Neuro Neuro: Negative for dizziness, lightheadedness, near syncope, syncope, orthostatic symptoms or weakness Endo Endo: Positive for fatigue Allergy Allergy/Immunology: Negative for rash Cardiology Exam Const Appearance: cooperative, healthy appearing, comfortable and no acute distress Nutritional Appearance: average body habitus and well nourished Orientation: alert, awake and oriented x3 Head Head: normal to inspection Ears: hearing grossly normal bilaterally Nose: external nose normal Face and Sinus: face symmetric Mouth: oral mucosae normal Eyes General: appearance normal, both eyes and all related structures Eyelids: eyelids normal EOM: EOM intact bilaterally Neck Neck: normal visual inspection and no JVD Carotids: normal carotid upstroke Chest Chest inspection: normal inspection of the chest, symmetric chest movement and normal respiratory effort; negative cough Auscultation: Bilateral: Clear to Auscultation Cardio Palpation: normal PMI Rate: regular rate Rhythm: regular rhythm Heart sounds: S1 normal and S2 normal; negative rub, gallop or murmur GI GI: normal to inspection Neuro General: alert, awake, oriented x3 and CN's II-XI intact bilaterally Skin Skin: no rashes or lesions noted Extremities Pulses: Normal: Right Posterior Tibial Pulse, Left Posterior Tibial Pulse, Right Radial Pulse, Left Radial Pulse Lower Extremity Edema: None: Bilateral Psych Psychological: normal affect Assessment & Plan 1. Atherosclerosis of coronary artery bypass graft of [place] heart without angina pectoris I25.810 PCI-MARIUM Prox OM1 w/ 2.5 x 12 mm Elunir, MARIUM-Prox LCx w/ 2.5 x 12 mm Elunir FME-SVI-Xjdm LAD w/ 2.5 x 8 mm Resolute Integrity 07/22/18 MARIUM-Prox OM1 w/ 2.75 x 12 mm Xience Alpine Stent 04/15/2014 PDX-GKB-Gzpy LAD w/ 3.5 x 12 mm Xience Xpedition and MARIUM-Prox LCx w/ 3.5 x 8 mm Xience Xpedition 08/11/2013 IZB-SCT-Hqla Main w/ 3.0 x 16 mm Taxus Stent and MARIUM-Prox OM1 w/ 2.5 x 16 mm Taxus 11/20/2005; CABG x 2: RUSH-LAD, SVG-LCx 06/17/05 Plan Due to ongoing concerning symptoms of chest pain and frequent nitroglycerin use in conjunction with history of coronary artery disease requiring stenting and bypass surgery, he will proceed with left heart catheterization to assess further. Based on results, further recommendation of be made. 2. H/O coronary artery bypass surgery Z95.1 CABG x 2: RUSH-LAD, SVG-LCx 06/17/05 Plan His heart catheterization on 07/22/2018 noted that SVG to LAD was patent previously and SVG to LCx was occluded previously and was not reimaged. He will continue risk factor and lifestyle modification. He will proceed with left heart catheterization to assess further. 3. History of coronary artery stent placement Z95.5 PCI-MARIUM Prox OM1 w/ 2.5 x 12 mm Elunir, MARIUM-Prox LCx w/ 2.5 x 12 mm Elunir CNH-ZPZ-Qpdk LAD w/ 2.5 x 8 mm Resolute Integrity 07/22/18 MARIUM-Prox OM1 w/ 2.75 x 12 mm Xience Alpine Stent 04/15/2014 NYQ-NGJ-Mgyo LAD w/ 3.5 x 12 mm Xience Xpedition and MARIUM-Prox LCx w/ 3.5 x 8 mm Xience Xpedition 08/11/2013 XHI-KUF-Zohc Main w/ 3.0 x 16 mm Taxus Stent and MARIUM-Prox OM1 w/ 2.5 x 16 mm Taxus 11/20/2005 Plan Patient underwent drug-eluting stent to proximal OM 1, proximal LCx, and proximal LAD in-stent restenosis on 07/22/2018. He will proceed with left heart catheterization to evaluate further. 4. Ischemic cardiomyopathy I25.5 Plan His echocardiogram on 12/07/2018 showed ejection fraction of 20% and stage III diastolic dysfunction. He recently underwent laboratory evaluation on 07/25/2019 that showed a BNP of 1213 and a creatinine level of 2.52. His Lasix was previously adjusted. He was asked to take results on 2.5 mg p.o. twice a week. Based on results, further recommendation will be made. There was concerns that due to his chronic kidney disease that SUSAN inhibitor or ARB or Entresto should be avoided. 5. Presence of permanent cardiac pacemaker Z95.0 Plan Pacemaker evaluation from 02/15/2019 showed no AT/AF episodes and one ventricular high rate episode since last check on 09/14/2018. Stored electrograms for ventricular high rate episode on 11/21/2018 shows monomorphic VT, AVD, at 187 bpm for approximately 2 seconds. Ventricular paced less than 1%. Atrial paced 52%. And estimated battery life of 8.2 to 10.3 years. Patient's pacemaker/ICD appears to be functioning appropriately. We will continue to monitor this with routine/scheduled follow-ups. 6. Essential (primary) hypertension I10 Plan Patient's blood pressure is well-controlled. We will continue to monitor. We will not make any medication regimen changes. 7. Pure hypercholesterolemia E78.00 Plan Lipid panel from 02/15/2019 showed cholesterol: 133, HDL: 36, LDL: 66, and triglycerides: 154. Additional Comments Thank you for allowing us to participate in the patients plan of care, if you have any questions please do not hesitate to call. This note was generated using a voice recognition system and there may be incorrect words, spelling or punctuation that were not noted when reviewing the office note prior to saving. Supplemental Info Supplemental Information Heart catheterization from 07/22/2018: CONCLUSIONS Severe [place] vessel disease involving the previously stented proximal circumflex artery and first obtuse marginal branch as well as the proximal left anterior descending artery. RECOMMENDATIONS Referred for immediate PCI CORONARY ANGIOGRAPHY DOMINANCE: Right Dominant LEFT HEART ASSESSMENT Left Ventricular Ejection Fraction: by Echo 25 % Depressed Left Ventricular systolic function LEFT MAIN: Previously placed stent is patent LEFT ANTERIOR DESCENDING ARTERY: OSTIAL LAD: 90 % Stenosis CIRCUMFLEX ARTERY: PROX CIRC: 70 % Stenosis, Previously placed stent is patent OM 1: Proximal - Previously placed stent has an instent 80 % restenosis RIGHT CORONARY ARTERY: No significant disease noted GRAFTS: Saphenous Vein graft to the LAD Was patent from the previously performed cath. The saphenous vein graft to the circumflex artery was occluded noted previously and was not reimaged. Cardiac intervention from 07/22/2018: CONCLUSIONS Successful MARIUM Prox OM1 using Elunir 2.5x12 m, post-dilated using 2.75 mm balloon Successful MARIUM Prox LCX using Elunir 2.5x12 mm, post-dilated using 2.75 mm balloon Successful MARIUM Prox LAD ISR using 2.5x8 mm Resolute Integrity, post-dilated using 2.75 mm balloon RECOMMENDATIONS ASA Indefinitley Plavix for at least 12 months Follow up with Dr. Fagan Carotid duplex ultrasound from 02/14/2019: Interpretation Summary Irregular calcific plaque right mid common carotid and proximal right external and internal carotid <50% stenosis right internal carotid >50% stenosis right external carotid Irregular calcific plaque left mid common carotid and proximal left external and internal carotid <50% stenosis left internal carotid >50% stenosis left external carotid Patent, antegrade, <50% stenosis bilateral vertebrals No change from 06/04/18 Echocardiogram from 12/07/2018: Interpretation Summary Severely dilated left ventricle. The estimated ejection fraction is 20 %. Severe global left ventricular systolic dysfunction. Stage 3 diastolic dysfunction. Contrast injection was performed. Compared to previous study, the left ventricular systolic function is the same.
[2019-07-29 13:59] VITALS: BMI 26.1
[2019-08-02 07:11] LABS: Absolute Lymphocyte Count 0.78 X10^3/uL (0.83-4.51); Absolute Neutrophil Count 3.2 X10^3/uL (2.0-7.7); Basophil# 0.04 X10^3/uL; Basophil% 0.9 % (0-1); Eosinophil# 0.08 X10^3/uL; Eosinophils% 1.8 % (0-5); Hematocrit 37.7 % (40-54); Hemoglobin 11.9 g/dL (13.0-16.5); Lymphocyte # 0.78 X10^3/ul (4.0); Lymphocyte % 17.1 % (19-41); Mean Corp Hgb Conc 31.6 g/dL (32-36); Mean Corpuscular Hgb 29.2 pg (27.0-32.0); Mean Corpuscular Volume 92.6 fL (80-94); Mean Platelet Vol. 10.3 fl (6.2-12.0); Monocyte# 0.37 X10^3/uL; Monocyte% 8.1 % (0-10); NRBC Flagged by Analyzer 0 % (0-5); Neutrophil # 3.21 X10^3/uL (2.7-7.7); Neutrophil % 70.3 % (47-70); Platelet Count 357 K/mm3 (150-450); RBC Distribution Width CV 15.5 % (11.6-14.6); RBC Distribution Width SD 51.9 fl (35.1-43.9); Red Blood Count 4.07 M/mm3 (4.6-6.2); White Blood Count 4.6 K/mm3 (4.4-11.0)
[2019-08-02 07:21] LABS: Anion Gap 6 (5-15); BUN 51 mg/dL (7-18); BUN/Creat Ratio 16.5 RATIO (10-20); Calcium,Total 9.4 mg/dL (8.5-10.1); Chloride 106 mmol/L (98-107); Creatinine, Serum 3.09 mg/dL (0.70-1.30); EST Glomerular Filtration Rate 21 mL/min (>60); Est Glom Filt Rate - Afr Amer 25 mL/min (>60); Estimated Creatinine Clearance 17.52 ml/min; Glucose 192 mg/dL (74-106); Potassium 4.2 mmol/L (3.5-5.1); Sodium Level 142 mmol/L (136-145)
--- NOTE | 2019-08-02 07:28 | EKG12_ITS ---
Test Reason : PRE PROCEDURE Blood Pressure : / mmHG Vent. Rate : 070 BPM Atrial Rate : 070 BPM P-R Int : 210 ms QRS Dur : 102 ms QT Int : 448 ms P-R-T Axes : 033 -10 139 degrees QTc Int : 483 ms Atrial-paced rhythm with prolonged AV conduction T wave abnormality, consider lateral ischemia Prolonged QT Abnormal ECG Confirmed by ISAIAH HOLDER, LISSETTE ([id number]), business editor OZZIE BARNARD ([id number]) on 08/04/2019 3:18:02 PM Referred By: David Fagan Confirmed By:LISSETTE COLON MD
--- NOTE | 2019-08-02 12:42 | CL.D_ITS ---
Patient Name: JOSIAS GUERRA Study Date: 08/02/2019 Performing: David Fagan MD Ht: 68.11 inches 173 cm : 1935 Wt: 171.96 lbs 78 kg Age: 84 Gender: male BSA: 1.92 PROCEDURE(S) PERFORMED [id number] CLINICAL PROFILE AND INDICATIONS Indications: Suspected CAD Heart Failure: None Stress/Imaging Stress/Image Study Performed: No CAD Presentations: Other: Exertional dyspnea CONCLUSIONS Coronary artery disease with previously placed stents which are patent. Severe left ventricular syst olic dysfunction. Renal dysfunction RECOMMENDATIONS Medical therapy DESCRIPTION OF PROCEDURE The patient arrived to the procedure lab. The risks and benefits of the procedure as well as a full d escription of our services here and current unavailability of surgical backup were fully explained to the patient and/or their significant other prior to the catheterization. The Timeout was completed, verifying the correct patient and procedure. The patient's procedural site was prepped and draped in the usual fashion. Local anesthetic was given subcutaneously to right radial region with Lidocaine 2% . Using a modified Seldinger technique, arterial access was obtained via the right radial artery, a 6 Fr sheath was inserted. Left Coronary Artery selective angiography was performed in multiple views u sing a 5 Fr. 4.0 [place] catheter. Right Coronary Artery selective angiography was then performed in mu ltiple views using a 5 Fr. JR 5 catheter.The arterial sheath was pulled and a TR Band was applied for hemostasis. 11cc of air was placed in the TR band. CORONARY ANGIOGRAPHY DOMINANCE: Right Dominant LEFT HEART ASSESSMENT Left Ventricular Ejection Fraction: by Echo 20 % Global Hypokinesis - Severe LEFT MAIN: Non-obstructive LEFT ANTERIOR DESCENDING ARTERY: PROX LAD: Previously placed stent is patent DIAGONAL 1: Proximal - Angiographically normal DIAGONAL 2: Proximal - Mild luminal irregularities CIRCUMFLEX ARTERY: PROX CIRC: Previously placed stent is patent MID CIRC: Previously placed stent is patent OM 1: Proximal - Previously placed stent is patent RIGHT CORONARY ARTERY: No significant disease noted COMPLICATIONS No Complications PROCEDURE MEDICATIONS Fentanyl 50 mcg IV Versed 1 mg IV Oxygen: 2 L/min via nasal cannula IV Bolus: .9 NaCl 500 ml total 08/02/2019 12:07:49 SUMMARY OF HEMODYNAMIC DATA Time AIR REST LV 150/13, 26 12:13:55 LV 150/15, 29 12:14:04 AO 152/63 (98) SA 12:14:19 Signed By David Fagan MD On 08/02/2019 12:41:54 David Fagan MD
== END 2019-08-02 14:17 | disposition home or self-care (01) ==
PROVIDERS: Nurse Practitioner Family; PCP Family Medicine; Referring Provider Internal Medicine Cardiovascular Disease; Visit Provider Internal Medicine Cardiovascular Disease
DX: I25.810 Atherosclerosis of coronary artery bypass graft(s) without angina pectoris (principal); I25.5 Ischemic cardiomyopathy; E78.5 Hyperlipidemia, unspecified; I25.2 Old myocardial infarction; I44.2 Atrioventricular block, complete; I45.10 Unspecified right bundle-branch block; I13.0 Hypertensive heart and chronic kidney disease with heart failure and stage 1 through stage 4 chronic kidney disease, or unspecified chronic kidney disease; I50.42 Chronic combined systolic (congestive) and diastolic (congestive) heart failure; E11.22 Type 2 diabetes mellitus with diabetic chronic kidney disease; N18.4 Chronic kidney disease, stage 4 (severe); Z79.82 Long term (current) use of aspirin; Z79.899 Other long term (current) drug therapy; K21.9 Gastro-esophageal reflux disease without esophagitis; N40.0 Benign prostatic hyperplasia without lower urinary tract symptoms; Z95.1 Presence of aortocoronary bypass graft; Z95.5 Presence of coronary angioplasty implant and graft; Z95.0 Presence of cardiac pacemaker; Z87.891 Personal history of nicotine dependence; Z86.73 Personal history of transient ischemic attack (TIA), and cerebral infarction without residual deficits
CPT/HCPCS: 36415; 80048; 85025; 93005; 93454; 99152; J7040; C1769; C1894; Q9967

== ENCOUNTER → 2019-09-14 | Outpatient (CLI) | payer MEDICARE, SELFPAY ==
[2019-08-18 14:58] VITALS: BMI 26.1
[2019-09-14 15:44] LABS: Albumin, Serum 3.8 g/dL (3.2-5.0); BUN 38 mg/dL (7-18); BUN/Creat Ratio 14.3 RATIO (10-20); Calcium,Total 9.1 mg/dL (8.5-10.1); Chloride 103 mmol/L (98-107); Creatinine, Serum 2.65 mg/dL (0.70-1.30); EST Glomerular Filtration Rate 25 mL/min (>60); Est Glom Filt Rate - Afr Amer 30 mL/min (>60); Glucose 193 mg/dL (74-106); Phosphorus 3.7 mg/dL (2.5-4.9); Potassium 4.5 mmol/L (3.5-5.1); Sodium Level 139 mmol/L (136-145)
[2019-09-15 09:41] LABS: PTHIN 89.8 pg/mL (18.4-80.1)
== END | disposition home or self-care (01) ==
LOC: LAB.FUTURE 13:05
PROVIDERS: PCP Family Medicine; Referring Provider Internal Medicine Nephrology; Visit Provider Internal Medicine Nephrology
DX: N18.4 Chronic kidney disease, stage 4 (severe) (principal)
CPT/HCPCS: 36415; 80069; 83970

== ENCOUNTER → 2019-10-21 | Outpatient (CLI) | payer MEDICARE, SELFPAY ==
[2019-10-21 09:19] VITALS: BMI 25.4
--- NOTE | 2019-10-21 10:45 | RAD_ITS ---
STUDY: X-RAY CHEST REASON FOR EXAM: Male, 84 years old. Cough. Shortness of breath. History of AK and open heart surgery. TECHNIQUE: PA and lateral views of the chest. COMPARISON: 07/25/2019. FINDINGS: The lungs are well expanded. There is chronic interstitial changes at the right lung base. There is no new infiltrate or mass. There is no demonstrated pleural abnormality. Sternal cerclage wires and vascular clips are present from a prior sternotomy and coronary artery bypass graft procedure (CABG). There is evidence of multiple prior fractures in the lower median sternotomy. The heart is borderline enlarged. Stable left-sided cardiac pacemaker. Normal mediastinum and jose antonio. Normal visualized pulmonary arteries. There is atherosclerotic calcification of the aortic arch with tortuosity. There are diffuse degenerative changes of the visualized thoracic spine. 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 There is no demonstrated abnormality of the visualized soft tissue structures of the upper abdomen. RAD/Chest PA and Lateral IMPRESSION: 1. No acute cardiopulmonary disease or major interval change. Electronically Signed: Horace Otoole DO at 17:02 EDT Tel [phone], Service support ,
[2019-10-21 11:46] LABS: Anion Gap 3 (5-15); BUN 51 mg/dL (7-18); BUN/Creat Ratio 15.1 RATIO (10-20); Calcium,Total 9.6 mg/dL (8.5-10.1); Chloride 104 mmol/L (98-107); Creatinine, Serum 3.37 mg/dL (0.70-1.30); EST Glomerular Filtration Rate 19 mL/min (>60); Est Glom Filt Rate - Afr Amer 23 mL/min (>60); Glucose 141 mg/dL (74-106); Potassium 3.9 mmol/L (3.5-5.1); Sodium Level 141 mmol/L (136-145)
[2019-10-21 11:51] LABS: BNP,B-Type NATRIURETIC PEPTIDE 875.1 pg/mL (0-100)
== END | disposition home or self-care (01) ==
PROVIDERS: PCP Family Medicine; Referring Provider Nurse Practitioner Family; Visit Provider Nurse Practitioner Family
DX: I50.42 Chronic combined systolic (congestive) and diastolic (congestive) heart failure (principal); R06.00 Dyspnea, unspecified; I25.810 Atherosclerosis of coronary artery bypass graft(s) without angina pectoris; R06.02 Shortness of breath
CPT/HCPCS: 36415; 71046; 80048; 83880

== ENCOUNTER → 2019-10-24 | Outpatient (CLI) | payer MEDICARE, SELFPAY ==
[2019-10-24 15:31] LABS: Hematocrit 40.3 % (40-54); Hemoglobin 12.4 g/dL (13.0-16.5); Mean Corp Hgb Conc 30.8 g/dL (32-36); Mean Corpuscular Hgb 28.4 pg (27.0-32.0); Mean Corpuscular Volume 92.4 fL (80-94); Mean Platelet Vol. 10.9 fl (6.2-12.0); Platelet Count 351 K/mm3 (150-450); RBC Distribution Width CV 16.1 % (11.6-14.6); RBC Distribution Width SD 55.1 fl (35.1-43.9); Red Blood Count 4.36 M/mm3 (4.6-6.2); White Blood Count 4.2 K/mm3 (4.4-11.0)
[2019-10-24 16:34] LABS: Vitamin D,25 Hydroxy 40.2 ng/mL
[2019-10-24 16:36] LABS: Albumin, Serum 4.3 g/dL (3.2-5.0); BUN 60 mg/dL (7-18); BUN/Creat Ratio 16.7 RATIO (10-20); Calcium,Total 9.3 mg/dL (8.5-10.1); Chloride 98 mmol/L (98-107); Creatinine, Serum 3.59 mg/dL (0.70-1.30); EST Glomerular Filtration Rate 17 mL/min (>60); Est Glom Filt Rate - Afr Amer 21 mL/min (>60); Glucose 179 mg/dL (74-106); Phosphorus 4.5 mg/dL (2.5-4.9); Potassium 3.6 mmol/L (3.5-5.1); Sodium Level 138 mmol/L (136-145)
== END | disposition home or self-care (01) ==
LOC: MTLAB 12:55
PROVIDERS: PCP Family Medicine; Referring Provider Internal Medicine Nephrology; Visit Provider Internal Medicine Nephrology
DX: N18.4 Chronic kidney disease, stage 4 (severe) (principal)
CPT/HCPCS: 36415; 80069; 82306; 85027

== ENCOUNTER → 2019-11-07 | Outpatient (CLI) | payer MEDICARE, SELFPAY ==
[2019-11-07 15:04] VITALS: BMI 26.7
[2019-11-07 17:04] LABS: Anion Gap 5 (5-15); BUN 57 mg/dL (7-18); BUN/Creat Ratio 15.6 RATIO (10-20); Calcium,Total 8.6 mg/dL (8.5-10.1); Chloride 104 mmol/L (98-107); Creatinine, Serum 3.66 mg/dL (0.70-1.30); EST Glomerular Filtration Rate 17 mL/min (>60); Est Glom Filt Rate - Afr Amer 21 mL/min (>60); Glucose 162 mg/dL (74-106); Potassium 4.2 mmol/L (3.5-5.1); Sodium Level 139 mmol/L (136-145)
== END | disposition home or self-care (01) ==
LOC: LAB 15:51
PROVIDERS: PCP Family Medicine; Visit Provider Internal Medicine Nephrology
DX: N17.9 Acute kidney failure, unspecified (principal)
CPT/HCPCS: 36415; 80048

== ENCOUNTER → 2019-12-07 | Outpatient (CLI) | payer MEDICARE, SELFPAY ==
[2019-11-07 15:04] VITALS: BMI 26.7
[2019-12-07 12:06] LABS: Albumin, Serum 3.7 g/dL (3.2-5.0); BUN 36 mg/dL (7-18); BUN/Creat Ratio 14.4 RATIO (10-20); Calcium,Total 9.2 mg/dL (8.5-10.1); Chloride 110 mmol/L (98-107); EST Glomerular Filtration Rate 26 mL/min (>60); Est Glom Filt Rate - Afr Amer 32 mL/min (>60); Glucose 103 mg/dL (74-106); Phosphorus 3.5 mg/dL (2.5-4.9); Potassium 4.3 mmol/L (3.5-5.1); Sodium Level 141 mmol/L (136-145)
== END | disposition home or self-care (01) ==
LOC: POLAB3 11:23
PROVIDERS: PCP Family Medicine; Visit Provider Internal Medicine Nephrology
DX: N17.9 Acute kidney failure, unspecified (principal); N18.4 Chronic kidney disease, stage 4 (severe)
CPT/HCPCS: 36415; 80069

== ENCOUNTER 2020-01-05 18:46 | Inpatient (IN) | payer MEDICARE, SELFPAY ==
[2019-11-07 15:04] VITALS: BMI 26.7
[2020-01-05] VITALS (20 sets, daily range): BP systolic 89–121; BP diastolic 47–77; PULSE 70–114; RESP 12–33; TEMP 36.4–37.6; O2SAT 88–99; BMI 24.9
--- NOTE | 2020-01-05 19:16 | EKG12_ITS ---
Test Reason : DYSRHYTHMIA Blood Pressure : / mmHG Vent. Rate : 106 BPM Atrial Rate : 106 BPM P-R Int : 188 ms QRS Dur : 108 ms QT Int : 354 ms P-R-T Axes : 044 -26 139 degrees QTc Int : 470 ms Sinus tachycardia Incomplete left bundle branch block Nonspecific ST and T wave abnormality Abnormal ECG Confirmed by ROSARIO HOLDER, COURTNEY ([id number]), design editor CHRISTY LOCKWOOD ([id number]) on 01/06/2020 9:34:48 AM Referred By: NNEKA Confirmed By:COURTNEY PONCE MD
--- NOTE | 2020-01-05 19:19 | ED.VISSUMM ---
- ER Visit Summary Date of Service: 01/05/20 Chief Complaint: Shortness of breath History of Present Illness: The patient is a 84 M who presents with shortness of breath that became worse today. Patient is a poor historian. Patient has a history of congestive heart failure. EMS was called. When they arrived patient was having 80% saturation on room air. EMS placed the patient on CPAP. Patient is nonverbal. Patient is responsive to painful stimuli only. Physical Examination: Vital signs are stable except for a tachycardia of 114 and a tachypnea of 26. Patient is 99% saturation on BiPAP. Patient is afebrile. Oral mucosa is pink and moist. Neck is supple. Trachea is midline. There is no JVD. Heart was regular rate and rhythm. Lungs were diminished bilaterally. There is poor respiratory effort noted. Abdomen is soft. Bowel sounds are normal. There is no tenderness. Cranial nerves II through XII are intact. There are no apparent focal motor or sensory deficits. Extremities are intact. There is 1+ edema of the lower extremities bilaterally. Test Results: EKG showed sinus tachycardia with a rate of 106. There are nonspecific ST-T wave changes in leads I, aVL, V5, and V6. CBC shows mild anemia with a hemoglobin of 12.0. Comprehensive metabolic profile shows an elevated BUN of 107 and creatinine of 5.42 these were elevated from previous result. Total bilirubin, alk phos, AST, and ALT were all mildly elevated. INR was normal at 1.4. PTT was 40.1. Urinalysis does not show any evidence of urinary tract infection. Troponin was elevated at 3.58. Lactate was normal at 1.4. Arterial blood gas showed a pH of 7.26 with a PCO2 of 43.1, PO2 of 84, bicarb of 19.4 and 95% sat. Portable chest x-ray was obtained. There is a mild left pleural effusion. There is no acute infiltrate. This was interpreted by the radiologist and reviewed by myself. Emergency Department Course and Treatment: Since the patient was not awake enough to answer questions, was able to give consent for endotracheal intubation. Patient was given rocuronium and etomidate. Patient was intubated using a glide scope with a 7.5 ET tube to 22 cm at the lip. The tube was visualized passing through the vocal cords. There is good color change on capnography. Breath sounds are equal but diminished bilaterally. There is condensation noted in the endotracheal tube. Patient was started on fentanyl and propofol. Patient was given IV fluid bolus. Patient was given a DuoNeb to the ventilator. Case was discussed with Dr. King from ICU. He recommended placing the patient on a bicarb drip. This was ordered. The case was discussed with Dr. Small from cardiology. He recommended starting the patient on a heparin drip. This was ordered. Case was discussed with the hospitalist. Disposition: Admit to ICU Impression: 1. Respiratory failure 2. Acute on chronic kidney disease 3. Non-STEMI Critical care time: 45 minutes. This was time spent obtaining history, performing physical examination, documenting, interpreting test results, discussion with consultants, and determining disposition. This note was generated with [employer] dictation software. It may contain incorrect words, spelling, and punctuation that were not noted in review of the chart prior to signing ED Disposition - Plan for ED Patient: Referrals: Salima Tuttle MD [Primary Care Provider] -
[2020-01-05] MEDS: Etomidate 20 MG/10 ML Vial IV (19:42)
[2020-01-05] MEDS: Rocuronium Bromide 50 MG/5 ML Vial IV (19:43)
[2020-01-05 19:52] LABS: Absolute Lymphocyte Count 0.34 X10^3/uL (0.83-4.51); Absolute Neutrophil Count 5.1 X10^3/uL (2.0-7.7); Basophil# 0.01 X10^3/uL; Basophil% 0.2 % (0-1); Hematocrit 40.7 % (40-54); Lymphocyte # 0.34 X10^3/ul (4.0); Lymphocyte % 5.4 % (19-41); Mean Corp Hgb Conc 29.5 g/dL (32-36); Mean Corpuscular Hgb 27.3 pg (27.0-32.0); Mean Corpuscular Volume 92.7 fL (80-94); Monocyte# 0.77 X10^3/uL; Monocyte% 12.2 % (0-10); NRBC Flagged by Analyzer 0.3 % (0-5); Neutrophil # 5.06 X10^3/uL (2.7-7.7); Neutrophil % 80.1 % (47-70); POSITIVE COUNT YES; POSITIVE DIFFERENTIAL YES; POSITIVE MORPHOLOGY YES; Platelet Count 202 K/mm3 (150-450); RBC Distribution Width SD 54.6 fl (35.1-43.9); Red Blood Count 4.39 M/mm3 (4.6-6.2); White Blood Count 6.3 K/mm3 (4.4-11.0)
[2020-01-05 19:53] LABS: International Normalized Ratio 1.4
[2020-01-05 19:54] LABS: Differential Indicated SCAN CRITERIA MET; Partial Thromboplast Time 40.1 Seconds (24.1-36.2)
[2020-01-05] MEDS: Propofol 10MG/Ml 1,000 MG/100 ML Bottle 4.9 MG CONT INF (20:06)
--- NOTE | 2020-01-05 20:15 | RAD_ITS ---
HISTORY: ETT PLACEMENT, NG PLACEMENT. Comparison is from October 21, 2019. Findings: The endotracheal tube terminates superimposed over the trachea, at the level of the clavicular heads, and above the radha. Esophagogastric tube's tip is below the diaphragm. A left chest wall dual lead cardiac pacer is present. Multiple sternal wires are present. All but the top 2 sternal wires have fractured. This is unchanged. Calcific plaque remains within the thoracic aortic arch. Mediastinal clips remain Lungs are adequately expanded Heart is enlarged. There may be left pleural fluid and atelectasis. RAD/Chest 1 View (Portable) IMPRESSION: Adequate position of endotracheal tube. Adequate position of esophagogastric tube. Increasing indistinctness to the left lower lobe with increasing pleural thickening suggesting greater pleural fluid, still small volume, and increasing atelectasis.. at 2050 Reported and signed by: Carlos Hernández MD Electronically Signed: Carlos Hernández MD at 20:48 EDT Tel , Service support ,
[2020-01-05 20:23] LABS: Bacteria 0 SEEN /hpf (None Seen); Mucous, Urine 0 SEEN /hpf (<or=2+); White Blood Cells 0 SEEN /hpf (0-5)
[2020-01-05 20:25] LABS: Color, Urine Yellow (Yellow); Glucose, Dipstick Normal (Normal); Ketone-Dipstick Negative (Negative); Leukocyte Esterase-Dipstick Negative /ul (Negative); Nitrite-Dipstick Negative (Negative); Occult Blood-Urine 150 /ul (Negative); Protein-Dipstick 100 mg/dl (Negative); Urine Bilirubin Dipstick Negative (Negative); Urine Clarity Sl. Cloudy (Clear); Urine Urobilinogen Normal (Normal)
--- NOTE | 2020-01-05 20:31 | ED.RN ---
Addendum entered by Amanda Bautista 01/05/20 20:33: patient with ecchymosis and exoriation to bilateral groins. Original Note: patient with wound to coccyx. discoloration to entire buttock, open area on right buttock.
[2020-01-05 20:35] LABS: Anisocytosis 1+; Platelet Estimate ADEQUATE (ADEQ)
[2020-01-05 20:36] LABS: Allen Test Positive; Base Excess -8 mmol/L (-2 to +2); Bicarbonate 19.4 mmol/L (22-26); Blood Gas Specimen Type ART; FI02 30; Mode AC; O2 Delivery Device Adult Vent; PEEP 5; PO2 84 mmHG (75-100); RR 14; SITE L Radial; SO2 95 % (95-99); Total Carbon Dioxide 21 mmol/L; Vt 450; pCO2 43.1 mmHg (35-45); pH 7.26 (7.35-7.45)
[2020-01-05 20:36] LABS: Crenated RBC RARE; Ovalocyte 1+; Polychromasia RARE
[2020-01-05 20:38] LABS: AST(SGOT) 137 U/L (15-37); Alanine Aminotransfer ALT/SGPT 139 U/L (16-61); Albumin, Serum 3.4 g/dL (3.2-5.0); Alkaline Phosphatase 147 U/L (45-117); Anion Gap 9 (5-15); BUN 107 mg/dL (7-18); BUN/Creat Ratio 19.7 RATIO (10-20); Calcium,Total 9.3 mg/dL (8.5-10.1); Chloride 110 mmol/L (98-107); Creatinine, Serum 5.42 mg/dL (0.70-1.30); EST Glomerular Filtration Rate 11 mL/min (>60); Est Glom Filt Rate - Afr Amer 13 mL/min (>60); Globulin 3.5 g/dL (2.2-4.2); Glucose 161 mg/dL (74-106); Potassium 5.1 mmol/L (3.5-5.1); Protein, Total 6.9 g/dL (6.4-8.2); Sodium Level 141 mmol/L (136-145)
[2020-01-05 20:52] LABS: Lactic Acid 1.4 mmol/L (0.4-1.9)
--- NOTE | 2020-01-05 20:52 | CPS ---
Pt.'s FiO2 increased to 60%; pt.'s oxygenation needs increased
[2020-01-05 21:01] LABS: Red Blood Cells-Urine 10-25 SEEN /hpf (0-5); Squamous Epithelial Cells - UA 0-5 SEEN /hpf (0-5)
[2020-01-05] MEDS: Ipratropium/Albuterol Sulfate 3 ML AMPUL.NEB INHALATION (21:25)
[2020-01-05] MEDS: HEPARIN/D5w 25,000 UNITS 25,000 UNITS/250 ML IV.SOLN. 12 UNITS IV (21:50)
--- NOTE | 2020-01-05 22:11 | PCM.HP.STD ---
Problem List (1) COVID-19 Status: Acute (2) Pneumonia due to 2019 novel coronavirus Status: Acute (3) Chronic combined systolic and diastolic CHF (congestive heart failure) Status: Chronic (4) Stroke Status: Chronic (5) Atherosclerosis of coronary artery bypass graft without angina pectoris Status: Chronic Qualifiers: [place] vs. transplanted heart: [place] heart Qualified Code(s): I25.810 - Atherosclerosis of coronary artery bypass graft(s) without angina pectoris Comment: PCI-MARIUM Prox OM1 w/ 2.5 x 12 mm Elunir, MARIUM-Prox LCx w/ 2.5 x 12 mm Elunir DGN-JDH-Gmik LAD w/ 2.5 x 8 mm Resolute Integrity 07/22/18 MARIUM-Prox OM1 w/ 2.75 x 12 mm Xience Alpine Stent 04/15/2014 RDQ-FUD-Pazd LAD w/ 3.5 x 12 mm Xience Xpedition and MARIUM-Prox LCx w/ 3.5 x 8 mm Xience Xpedition 08/11/2013 NON-OEA-Qweo Main w/ 3.0 x 16 mm Taxus Stent and MARIUM-Prox OM1 w/ 2.5 x 16 mm Taxus 11/20/2005; CABG x 2: RUSH-LAD, SVG-LCx 06/17/05 (6) H/O coronary artery bypass surgery Status: Chronic Comment: CABG x 2: RUSH-LAD, SVG-LCx 06/17/05 (7) Presence of permanent cardiac pacemaker Status: Chronic (8) Essential (primary) hypertension Status: Chronic (9) History of coronary artery stent placement Status: Chronic Comment: PCI-MARIUM Prox OM1 w/ 2.5 x 12 mm Elunir, MARIUM-Prox LCx w/ 2.5 x 12 mm Elunir OJD-KDL-Cbhr LAD w/ 2.5 x 8 mm Resolute Integrity 07/22/18 MARIUM-Prox OM1 w/ 2.75 x 12 mm Xience Alpine Stent 04/15/2014 LDH-ZJU-Ombx LAD w/ 3.5 x 12 mm Xience Xpedition and MARIUM-Prox LCx w/ 3.5 x 8 mm Xience Xpedition 08/11/2013 TRC-JRQ-Iynn Main w/ 3.0 x 16 mm Taxus Stent and MARIUM-Prox OM1 w/ 2.5 x 16 mm Taxus 11/20/2005 (10) History of ventricular tachycardia Status: Chronic (11) Chronic renal failure, stage 4 (severe) Status: Chronic (12) Ischemic cardiomyopathy Status: Chronic (13) Right bundle branch block Status: Chronic (14) Complete AV block, acquired Status: Chronic (15) Old myocardial infarction Status: Chronic (16) HLD (hyperlipidemia) Status: Chronic Qualifiers: Hyperlipidemia type: pure hypercholesterolemia Qualified Code(s): E78.00 - Pure hypercholesterolemia, unspecified History of Present Illness Date of Admission: 01/05/20 Chief Complaint: sob The patient is a 84 year old M with a significant history of CABG and stent; combined systolic and diastolic function; and of permanent pacemaker who presents to the emergency department with shortness of breath. Reportedly when paramedics got to his home his oxygen saturation was 80% on room air. Patient was placed on CPAP and brought to the emergency department. Per emergent department patient was somnolent and was not answering questions. Patient was intubated. Past Medical History Past Medical History (Chronic Problems): Chronic Problems (Last Reviewed 01/06/20 @ 01:[address] Leon Armas MD) Chronic combined systolic and diastolic CHF (congestive heart failure) (Chronic) Stroke (Chronic 02/15/19) Atherosclerosis of coronary artery bypass graft without angina pectoris (Chronic) PCI-MARIUM Prox OM1 w/ 2.5 x 12 mm Elunir, MARIUM-Prox LCx w/ 2.5 x 12 mm Elunir PUK-ATC-Yzsw LAD w/ 2.5 x 8 mm Resolute Integrity 07/22/18 MARIUM-Prox OM1 w/ 2.75 x 12 mm Xience Alpine Stent 04/15/2014 STR-OBW-Ldih LAD w/ 3.5 x 12 mm Xience Xpedition and MARIUM-Prox LCx w/ 3.5 x 8 mm Xience Xpedition 08/11/2013 RJU-WPR-Iyra Main w/ 3.0 x 16 mm Taxus Stent and MARIUM-Prox OM1 w/ 2.5 x 16 mm Taxus 11/20/2005; CABG x 2: RUSH-LAD, SVG-LCx 06/17/05 H/O coronary artery bypass surgery (Chronic 06/17/05) CABG x 2: RUSH-LAD, SVG-LCx 06/17/05 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) Essential (primary) hypertension (Chronic) History of coronary artery stent placement (Chronic 07/22/18) PCI-MARIUM Prox OM1 w/ 2.5 x 12 mm Elunir, MARIUM-Prox LCx w/ 2.5 x 12 mm Elunir RBJ-SNS-Pmyb LAD w/ 2.5 x 8 mm Resolute Integrity 07/22/18 MARIUM-Prox OM1 w/ 2.75 x 12 mm Xience Alpine Stent 04/15/2014 SAH-QHD-Irrh LAD w/ 3.5 x 12 mm Xience Xpedition and MARIUM-Prox LCx w/ 3.5 x 8 mm Xience Xpedition 08/11/2013 GCK-MMI-Dkpl Main w/ 3.0 x 16 mm Taxus Stent and MARIUM-Prox OM1 w/ 2.5 x 16 mm Taxus 11/20/2005 History of ventricular tachycardia (Chronic) Chronic renal failure, stage 4 (severe) (Chronic) Ischemic cardiomyopathy (Chronic) Right bundle branch block (Chronic) Complete AV block, 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) HLD (hyperlipidemia) (Chronic) Medical History: Medical History (Last Reviewed 01/06/20 @ 01:[address] Leon Armas MD) Chronic combined systolic and diastolic CHF (congestive heart failure) (Chronic) I50.42 Elevated troponin (Inactive) Onset Date: 02/15/19 R79.89 Stroke (Chronic) Onset Date: 02/15/19 I63.9 Atherosclerosis of coronary artery bypass graft without angina pectoris (Chronic) I25.810 PCI-MARIUM Prox OM1 w/ 2.5 x 12 mm Elunir, MARIUM-Prox LCx w/ 2.5 x 12 mm Elunir UYF-STZ-Jzyz LAD w/ 2.5 x 8 mm Resolute Integrity 07/22/18 MARIUM-Prox OM1 w/ 2.75 x 12 mm Xience Alpine Stent 04/15/2014 RMY-CGB-Xkfw LAD w/ 3.5 x 12 mm Xience Xpedition and MARIUM-Prox LCx w/ 3.5 x 8 mm Xience Xpedition 08/11/2013 KBM-AGP-Ukgu Main w/ 3.0 x 16 mm Taxus Stent and MARIUM-Prox OM1 w/ 2.5 x 16 mm Taxus 11/20/2005; CABG x 2: RUSH-LAD, SVG-LCx 06/17/05 Essential (primary) hypertension (Chronic) I10 History of ventricular tachycardia (Chronic) Z86.79 Chronic renal failure, stage 4 (severe) (Chronic) N18.4 Ischemic cardiomyopathy (Chronic) I25.5 Right bundle branch block (Chronic) I45.10 Complete AV block, acquired (Chronic) I44.2 Old myocardial infarction (Chronic) I25.2 HLD (hyperlipidemia) (Chronic) E78.5 BPH (benign prostatic hyperplasia) N40.0 Diaphragmatic hernia K44.9 GERD (gastroesophageal reflux disease) K21.9 History of nephrolithiasis Z87.442 Radiculitis of leg M54.10 Type 2 diabetes mellitus E11.9 Coronary atherosclerosis of [place] coronary artery (Inactive) I25.10 NSTEMI (non-ST elevated myocardial infarction) (Inactive) I21.4 Allergies Penicillins Allergy (Verified 01/05/20 18:53) Anaphylaxis amlodipine [From Norvasc] Adverse Reaction (Intermediate, Verified 01/05/20 18:53) dizzy ezetimibe [From Zetia] Adverse Reaction (Verified 01/05/20 18:53) mylagias rosuvastatin calcium [From Crestor] Adverse Reaction (Verified 01/05/20 18:53) legs hurt Jnguimm-Hnr-Cup Reductase Inhibitor Adverse Reaction (Verified 01/05/20 18:53) body aches Home Medications: Ambulatory Orders Medication Instructions Recorded Finasteride [Proscar] 5 mg PO DAILY 02/14/19 Folic Acid 5 mg PO DAILY 02/14/19 Ubidecarenone [Coq-10] 100 mg PO DAILY 02/14/19 l Gasseri/B Bifidum/B Longum 2 cap PO QHS 02/14/19 [[facility] Capsule] colestipol 1 gram tablet 1 g PO DAILY #90 tab 06/03/19 nitroglycerin 0.4 mg sublingual 0.4 mg SUBLINGUAL Q5-15M PRN #25 07/25/19 tablet tab carvedilol 3.125 mg tablet 3.125 mg PO BID #180 tab 10/11/19 clopidogrel 75 mg tablet 75 mg PO DAILY #90 tab 11/07/19 furosemide 40 mg tablet 40 mg PO DAILY tab 11/07/19 trazodone 50 mg tablet 50 mg PO DAILY 11/07/19 isosorbide mononitrate 60 mg 60 mg PO DAILY #90 tab 11/22/19 tablet,extended release 24 hr Surgical History: Surgical History (Last Reviewed 01/06/20 @ 01:[address] Leon Armas MD) H/O coronary artery bypass surgery (Chronic) Onset Date: 06/17/05 Z95.1 CABG x 2: RUSH-LAD, SVG-LCx 06/17/05 Presence of permanent cardiac pacemaker (Chronic) Onset Date: 05/2014 Z95.0 History of coronary artery stent placement (Chronic) Onset Date: 07/22/18 Z95.5 PCI-MARIUM Prox OM1 w/ 2.5 x 12 mm Elunir, MARIUM-Prox LCx w/ 2.5 x 12 mm Elunir XQM-DBO-Qfyf LAD w/ 2.5 x 8 mm Resolute Integrity 07/22/18 MARIUM-Prox OM1 w/ 2.75 x 12 mm Xience Alpine Stent 04/15/2014 WIY-TFL-Npmj LAD w/ 3.5 x 12 mm Xience Xpedition and MARIUM-Prox LCx w/ 3.5 x 8 mm Xience Xpedition 08/11/2013 [facility]-Vuih Main w/ 3.0 x 16 mm Taxus Stent and MARIUM-Prox OM1 w/ 2.5 x 16 mm Taxus 11/20/2005 History of appendectomy Z90.49 History of back surgery Z98.890 History of left heart catheterization Onset Date: 08/02/19 Z98.890 History of tonsillectomy and adenoidectomy Z98.890 Surgical History: appendectomy, coronary bypass surgery - s/p stents als, pacemaker implantation, tonsillectomy, - - h/o back surgery Psychiatric History: No pertinent psych hx Smoking Status: Unknown if ever smoked - *Family History Paternal Family History: Family History (Last Reviewed 01/06/20 @ 01:[address] Leon Armas MD) Father Myocardial infarction Hypertension Heart disease Mother Hypertension Emphysema of lung FH: brain aneurysm Daughter Afib History Items: Heart Disease - [place], Hypertension Maternal Family History: Family History (Last Reviewed 01/06/20 @ 01:[address] Leon Armas MD) Father Myocardial infarction Hypertension Heart disease Mother Hypertension Emphysema of lung FH: brain aneurysm Daughter Afib History Items: COPD, Hypertension, - - brain aneurysm Review of Systems Unable to obtain accurate/complete ROS d/t: Mechanical ventilation & sedated. History was taken from ED doc. VTE Information - Inpt Only VTE Present on Admission: No VTE Mechan Device Prophylaxis: None VTE Pharm Prophylaxis ordered?: No Reason prophylaxis not ordered:: Treatment Not Indicated - Started on heparin drip for non-ST elevation [place] Patient Problems: Active and Suspected Problems (Last Reviewed 01/06/20 @ 01:[address] Leon Armas MD) COVID-19 (Acute) Pneumonia due to 2019 novel coronavirus (Acute) - Physical Exam Vitals/I&O's: Vital Signs Temp Pulse Resp BP Pulse Ox 99.2 F H 104 H 14 89/67 L 96 01/05/20 21:45 01/05/20 21:45 01/05/20 21:45 01/05/20 21:45 01/05/20 21:45 Oxygen Delivery Method Mechanical Ventilator Weight: 81.1 kg Body Mass Index (BMI) 24.9 Intake and Output for Last 24 Hours 01/03/20 01/04/20 01/05/20 23:59 23:59 23:59 Intake Total 500 / 500 Balance 500 / 500 General: - - Intubated and sedated on mechanical ventilation. HEENT: Atraumatic, Normocephalic, - - Pupils are myotic. Neck: No Nodes, Trachea Midline Lungs: Clear to auscultation, Normal air movement Cardiovascular: No murmurs, Tachycardic, - - Diminished heart sounds Abdomen: Bowel Sounds Present, Soft Extremities: No edema, Capillary Refill Less than 3 Seconds Skin: No rashes, No breakdown Musculoskeletal: No Muscle Wasting Neurological: Cranial nerves II-XII grossly intact, - - Intubated and sedated on mechanical ventilation. Psych/Mental Status: - - Intubated and sedated on mechanical ventilation. Laboratory Results 01/05/20 19:00: Sodium 141, Potassium 5.1, Chloride 110 H, Carbon Dioxide 22.0, Anion Gap 9, BUN 107 H*, Creatinine 5.42 H, Estim Creat Clear Calc 11.00, Est GFR (MDRD) Af Amer 13 L, Est GFR (MDRD) Non-Af 11 L, BUN/Creatinine Ratio 19.7, Glucose 161 H, Calcium 9.3, Total Bilirubin 1.20 H, AST 137 H, ALT 139 H, Alkaline Phosphatase 147 H, Troponin I 3.580 H*, Total Protein 6.9, Albumin 3.4, Globulin 3.5, Albumin/Globulin Ratio 1.0 01/05/20 19:00: WBC 6.3, RBC 4.39 L, Hgb 12.0 L, Hct 40.7, MCV 92.7, MCH 27.3, MCHC 29.5 L, RDW Std Deviation 54.6 H, RDW Coeff of Iam 16.0 H, Plt Count 202, MPV 12.0, Immature Gran % (Auto) 2.100 H, Neut % (Auto) 80.1 H, Lymph % (Auto) 5.4 L, Dougherty % (Auto) 12.2 H, Eos % (Auto) 0.0, Baso % (Auto) 0.2, Absolute Neuts (auto) 5.1, Absolute Lymphs (auto) 0.34 L, Nucleated RBC % 0.3, Differential Comment COMMENT, Platelet Estimate ADEQUATE, Polychromasia RARE, Anisocytosis 1+, Ovalocytes 1+, Crenated Cell RARE 01/05/20 19:00: PT 17.0 H, INR 1.4, APTT 40.1 H 01/05/20 19:00: Lactic Acid 1.4 01/05/20 20:05: Urine Color Yellow, Urine Clarity Sl. Cloudy, Urine pH 5.0, Ur Specific Wallace 1.020, Urine Protein 100 H, Urine Glucose (UA) Normal, Urine Ketones Negative, Urine Occult Blood 150 H, Urine Nitrite Negative, Urine Bilirubin Negative, Urine Urobilinogen Normal, Ur Leukocyte Esterase Negative, Urine RBC 10-25 SEEN, Urine WBC 0 SEEN, Ur Squamous Epith Cells 0-5 SEEN, Urine Bacteria 0 SEEN, Urine Mucus 0 SEEN 01/05/20 20:27: Specimen Type ART, Sample Site L Radial, pH 7.26 L, Bicarbonate Actual 19.4 L, Total CO2 21, Base Excess -8 L, O2 Saturation 95, O2 % 30, ABG pCO2 43.1, ABG pO2 84, Daniel Test Positive, Respiration Rate 14, O2 Delivery Device Adult Vent, Vent Mode AC, Tidal Volume 450, POC PEEP 5 01/05/20 20:37: COVID-19 (PILLO) Pending Current Medications Heparin Sodium (Porcine) (Heparin Injection (Vial) 5,000 Unit/Ml Vial) 0 unit IV UD PRN; Protocol PRN Reason: dose adjustment Fentanyl Citrate 1,000 mcg/ (Sodium Chloride) 100 mls @ 2.5 mls/hr CONT INF .Q40H TORREY; Protocol Last Admin: 01/05/20 20:26 Dose: 25 mcg/hr, 2.5 mls/hr Documented by: Propofol (Diprivan) 1,000 mg in 100 mls @ 4.866 mls/hr CONT INF .Q12H TORREY; Protocol Last Admin: 01/05/20 20:06 Dose: 10 mcg/kg/min, 4.9 mls/hr Documented by: Sodium Bicarbonate 50 meq/ (Dextrose) 1,050 mls @ 100 mls/hr IV .[id number] TORREY Last Admin: 01/05/20 21:47 Dose: 100 mls/hr Documented by: Heparin Sodium/Dextrose () 25,000 units in 250 mls @ 12 mls/hr IV .[id number] TORREY; Protocol Last Admin: 01/05/20 21:50 Dose: 1,200 units/hr, 12 mls/hr Documented by: Assessment/Plan All Active Problems (Last Reviewed 01/06/20 @ 01:[address] Leon Armas MD) COVID-19 (Acute) Pneumonia due to 2019 novel coronavirus (Acute) Acute respiratory failure secondary to COVID-19 pneumonia. Chest x-ray was interpreted and actual chest x-ray image independently reviewed by me: Increasing indistinctness to the left lower lobe with increasing pleural thickening suggesting greater pleural fluid, still small volume and increasing atelectasis Intubated on arrival at emergency department. Started on fentanyl and propofol drip at emergency department; continued. Will be admitted to intensive care unit on mechanical ventilation. COVID-19 was positive. Procalcitonin, strep pneumonia antigen and Legionella urine antigen ordered.Decadron IV ordered. Tylenol for fever D-dimer not ordered. Patient already on heparin drip. Patient with LUCIA and would not be eligible for contrast at this time. When off heparin drip consider oral anticoagulation. Patient with bandemia but without leukocytosis. Procalcitonin is pending. Patient is allergic to penicillin. Will give one-time dose of aztreonam and Levaquin as we wait for procalcitonin. Meanwhile procalcitonin can be erroneously elevated secondary to LUCIA. Infectious disease consult and pulmonology consult. NSTEMI Patient with troponin of 3.58. Emergent department doctor discussed with welcome wagon hostess on-call and heparin drip was started; continued. Aspirin 325 mg x 1 and daily diabetes aspirin ordered. Consider further allergy consult if necessary. Trend troponin. EKG with nonspecific ST and T wave abnormalities. LUCIA on CKD stage IV Reportedly patient was supposed to be started on dialysis outpatient. On presentation creatinine was 5.42. Baseline creatinine is between 2.5-3.6. Bili severely elevated at 107. ED Doc discussed with director of real estate and bicarb drip was started. Continue patient on bicarb drip. Nephrology consulted. Evaded liver enzymes Likely secondary to COVID-19 Trend. Chronic combined systolic and diastolic dysfunction. Echocardiogram on 12/07/2018 Ejection fraction of 20%. Severe global left ventricular systolic function. Stage III diastolic dysfunction. Cautious use of IV fluids. Daily weights. DVT prophylaxis Not indicated since patient can be started on heparin drip for NSTEMI. Stress ulcer prophylaxis Pepcid ordered. Inpatient E&M: [id number] Init Hosp L3
[2020-01-06] VITALS (40 sets, daily range): BP systolic 82–144; BP diastolic 44–94; PULSE 70–119; RESP 16–32; TEMP 36.6–39.3; O2SAT 91–100; BMI 19.9; BMI 25.6
[2020-01-06 01:46] LABS: Procalcitonin 11.53 ng/mL (0.00-0.09)
[2020-01-06] MEDS: dexAMETHasone 4 MG/ML Vial 6 MG IV ×2 (02:11→10:18)
[2020-01-06] MEDS: Chlorhexidine 15 ML PO ×3 (02:12→20:22)
[2020-01-06] MEDS: levoFLOXacin IV 500 MG/100 ML BAG 100 MG IV (02:12)
[2020-01-06] MEDS: Aspirin 325 MG Tablet PO (02:17)
[2020-01-06] MEDS: Acetaminophen 325 MG Tablet 650 MG PO (02:23)
[2020-01-06 04:07] LABS: Hematocrit 35.7 % (40-54); Hemoglobin 10.3 g/dL (13.0-16.5); Mean Corp Hgb Conc 28.9 g/dL (32-36); Mean Corpuscular Volume 93.5 fL (80-94); Mean Platelet Vol. 11.2 fl (6.2-12.0); POSITIVE COUNT YES; POSITIVE DIFFERENTIAL YES; POSITIVE MORPHOLOGY YES; Platelet Count 268 K/mm3 (150-450); RBC Distribution Width SD 55.3 fl (35.1-43.9); Red Blood Count 3.82 M/mm3 (4.6-6.2); White Blood Count 8.8 K/mm3 (4.4-11.0)
[2020-01-06 04:11] LABS: Differential Indicated MANUAL DIFF; Partial Thromboplast Time 83.1 Seconds (24.1-36.2)
[2020-01-06 04:37] LABS: ALB/GLOB Ratio 0.9 RATIO (0.9-2.4); AST(SGOT) 102 U/L (15-37); Alanine Aminotransfer ALT/SGPT 113 U/L (16-61); Albumin, Serum 2.8 g/dL (3.2-5.0); Alkaline Phosphatase 123 U/L (45-117); Anion Gap 12 (5-15); BUN/Creat Ratio 19.5 RATIO (10-20); Calcium,Total 8.3 mg/dL (8.5-10.1); Chloride 105 mmol/L (98-107); Creatinine, Serum 5.33 mg/dL (0.70-1.30); EST Glomerular Filtration Rate 11 mL/min (>60); Est Glom Filt Rate - Afr Amer 13 mL/min (>60); Estimated Creatinine Clearance 12.05 ml/min; Glucose 187 mg/dL (74-106); Magnesium 2.6 mg/dL (1.6-2.6); Phosphorus 6.5 mg/dL (2.5-4.9); Potassium 4.9 mmol/L (3.5-5.1); Protein, Total 5.8 g/dL (6.4-8.2); Sodium Level 139 mmol/L (136-145)
[2020-01-06 04:38] LABS: BUN 104 mg/dL (7-18)
[2020-01-06 04:56] LABS: Basophil 1 % (0-1); Lymphocyte 1 % (19-41); Metamyelocyte 2 % (0-1); Monocyte 4 % (0-10); Neutrophil-Band 4 % (0-5); Neutrophil-Segmented 88 % (47-70); Nucleated Red Bld Cells,Manual 2 % (0-5); Platelet Estimate ADEQUATE (ADEQ); Red Cell Morphology NORM C+C NORMAL (NORM C&C); Total Cells Counted 100 (MANUAL DIFF); Toxic Granulation 2+; Vacuolated Cells 2+
[2020-01-06 04:57] LABS: Absolute Lymphocyte Count 0.08 X10^3/uL (0.83-4.51); Absolute Neutrophil Count 8.1 X10^3/uL (2.0-7.7); Lymphocyte # 0.08 X10^3/ul (4.0); Neutrophil # 8.07 X10^3/uL (2.7-7.7)
--- NOTE | 2020-01-06 06:27 | PCM.RX.CS ---
Consult Pharmacy has been consulted to manage selected antiobiotic: Vancomycin Type of Consult: New start Suspected Infection: Pneumonia Prior Doses of Antibiotics Received/Current Regimen: Medications Vancomycin HCl 1,250 mg/ (Sodium Chloride) 275 mls @ 167 mls/hr IV X1 ONE Stop: 01/06/20 07:38 Labs: Sodium 139 mmol/L (136-145) 01/06/20 03:30 Potassium 4.9 mmol/L (3.5-5.1) 01/06/20 03:30 Chloride 105 mmol/L (98-107) 01/06/20 03:30 Carbon Dioxide 22.0 mmol/L (21.0-32.0) 01/06/20 03:30 Anion Gap 12 (5-15) 01/06/20 03:30 BUN 104 mg/dL (7-18) H* 01/06/20 03:30 Creatinine 5.33 mg/dL (0.70-1.30) H 01/06/20 03:30 Est GFR (MDRD) Af Amer 13 mL/min (>60) L 01/06/20 03:30 Est GFR (MDRD) Non-Af 11 mL/min (>60) L 01/06/20 03:30 BUN/Creatinine Ratio 19.5 RATIO (10-20) 01/06/20 03:30 Glucose 187 mg/dL (74-106) H 01/06/20 03:30 Microbiology: Microbiology 01/06/20 01:00 Urine Catheter - Pena Legionella Antigen - Final 01/06/20 01:00 Urine Catheter - Pena Streptococcus pneumoniae Antigen (M - Final 01/05/20 20:37 Mucosa - Nasopharyngeal Respiratory Panel (PCR) - Final Weight used for dosin.5 kg Estimated Creatinine Clearance: 12 Goal Trough: 15-20 mcg/mL Pharmacy Plan for Drug Dosing: Initial dose of 1250mg to be given. Due to CrCl=12, will get a random vancomycin level 01/08/20 in am and determine further dosing from that result. Pharmacy Service will continue to monitor and adjust dosing as required. Follow-Up Labs: Trough Vancomycin - random Labs to be done on [date and time ordered]: 01/08/20 @0600
[2020-01-06] MEDS: Aspirin 81 MG TAB.CHEW GT (10:18)
[2020-01-06] MEDS: Famotidine 20 MG Tablet GT (10:18)
[2020-01-06] MEDS: 0.9% Saline Lock 10 ML Syringe IV (10:20)
[2020-01-06 11:08] LABS: Partial Thromboplast Time 148.8 Seconds (24.1-36.2)
--- NOTE | 2020-01-06 11:22 | CASEMGMT ---
RN CM Assessment Note Introduced role of CM to patient's via phone. states the patient had not been feeling well for a few days and has been less active. The patient uses a walker at home and assists with any care needs. Daughter is a nurse and also able to assist. Patient has home oxygen through [employer] with concentrator and portability. The patient is currently intubated in ICU. Presentation: shortness of breath Diagnosis: covid-19 PCP: Dr. Salima Tuttle Insurance: [facility] Preferred Pharmacy: [facility] Prescription Benefit: yes LNOK: , daughter Aixa Otto Living Arrangements: Lives independently in own home. Tranportation: family can drive DME: has walker, cane, home oxygen with concentrator and portability through [employer] [facility] CM updated HHC on admission- they will need to review if they can see patient on dc during quarantine, or if they will need to wait until quarantine time is completed. SNF: [facility] last year after stroke. Patient DC Goals: Home vs SNF DC Plan: TBD. CM available for discharge planning coordination. Contact CM for any concerns/needs that may arise. Carrie NOLAN RN ACM
--- NOTE | 2020-01-06 12:30 | PCM.CON.CC ---
Problem List (1) COVID-19 Status: Acute (2) Pneumonia due to 2019 novel coronavirus Status: Acute (3) Chronic combined systolic and diastolic CHF (congestive heart failure) Status: Chronic (4) Stroke Status: Chronic (5) Atherosclerosis of coronary artery bypass graft without angina pectoris Status: Chronic Qualifiers: [place] vs. transplanted heart: [place] heart Qualified Code(s): I25.810 - Atherosclerosis of coronary artery bypass graft(s) without angina pectoris Comment: PCI-MARIUM Prox OM1 w/ 2.5 x 12 mm Elunir, MARIUM-Prox LCx w/ 2.5 x 12 mm Elunir YXC-NJN-Qjft LAD w/ 2.5 x 8 mm Resolute Integrity 07/22/18 MARIUM-Prox OM1 w/ 2.75 x 12 mm Xience Alpine Stent 04/15/2014 UGI-BAG-Fbie LAD w/ 3.5 x 12 mm Xience Xpedition and MARIUM-Prox LCx w/ 3.5 x 8 mm Xience Xpedition 08/11/2013 EQW-WLG-Spaa Main w/ 3.0 x 16 mm Taxus Stent and MARIUM-Prox OM1 w/ 2.5 x 16 mm Taxus 11/20/2005; CABG x 2: RUSH-LAD, SVG-LCx 06/17/05 (6) H/O coronary artery bypass surgery Status: Chronic Comment: CABG x 2: RUSH-LAD, SVG-LCx 06/17/05 (7) Presence of permanent cardiac pacemaker Status: Chronic (8) History of ventricular tachycardia Status: Chronic (9) Chronic renal failure, stage 4 (severe) Status: Chronic (10) Ischemic cardiomyopathy Status: Chronic (11) Right bundle branch block Status: Chronic (12) HLD (hyperlipidemia) Status: Chronic Qualifiers: Hyperlipidemia type: pure hypercholesterolemia Qualified Code(s): E78.00 - Pure hypercholesterolemia, unspecified Reason for Consult Date of Consultation: 01/06/20 Reason for Consultation: Respiratory failure History of Present Illness: The patient is an 84 year old M, with past medical history listed below, who presented [facility] on 01/05/2020 secondary to progressive shortness of breath. Patient reportedly started to have shortness of breath and was noted by his home health care nurse to be saturating 80% on room air. Did discuss with patient's family during ICU rounds this morning and patient reportedly has not been able to get out of bed for almost a week. Patient does have a history of chronic kidney disease and weakness and was supposed to have home health care helping with activity. EMS was called and was immediately placing CPAP on the patient. On arrival to the emergency room, patient was noted to be 99% on BiPAP therapy. Patient was tachycardic at 114 bpm, but was noted to only respond to painful stimuli. Patient was emergently intubated. Laboratory work-up was relatively unremarkable except for a BUN of 107 and a creatinine of 5.42. Troponin was elevated at 3.58 despite a lactate of 1.4. ABG showed a significant metabolic acidosis and chest x-ray only showed a mild left pleural effusion. COVID-19 testing ended up coming back positive, so patient was admitted under respiratory precautions. Patient was placed on a bicarb drip. History is very difficult to obtain. Patient reportedly has home health coming to his house to evaluate him and that is how he was found to be hypoxic. Patient does suffer from neurologic defects from a previous stroke, but characterization is unclear at this time. Patient reportedly is being seen by Dr. Rivera secondary to progressive chronic kidney disease, but missed an appointment earlier this week to discuss dialysis secondary to feeling so weak. Unable to obtain a review of systems secondary to patient's current status and family being a poor historian. Past Medical History Past Medical History (Chronic Problems): Chronic Problems (Last Reviewed 01/06/20 @ 01:[address] Leon Armas MD) Chronic combined systolic and diastolic CHF (congestive heart failure) (Chronic) Stroke (Chronic 02/15/19) Atherosclerosis of coronary artery bypass graft without angina pectoris (Chronic) PCI-MARIUM Prox OM1 w/ 2.5 x 12 mm Elunir, MARIUM-Prox LCx w/ 2.5 x 12 mm Elunir ELT-WOF-Yvls LAD w/ 2.5 x 8 mm Resolute Integrity 07/22/18 MARIUM-Prox OM1 w/ 2.75 x 12 mm Xience Alpine Stent 04/15/2014 YFA-ICN-Bvnp LAD w/ 3.5 x 12 mm Xience Xpedition and MARIUM-Prox LCx w/ 3.5 x 8 mm Xience Xpedition 08/11/2013 CNY-QGY-Ebpb Main w/ 3.0 x 16 mm Taxus Stent and MARIUM-Prox OM1 w/ 2.5 x 16 mm Taxus 11/20/2005; CABG x 2: RUSH-LAD, SVG-LCx 06/17/05 H/O coronary artery bypass surgery (Chronic 06/17/05) CABG x 2: RUSH-LAD, SVG-LCx 06/17/05 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) Essential (primary) hypertension (Chronic) History of coronary artery stent placement (Chronic 07/22/18) PCI-MARIUM Prox OM1 w/ 2.5 x 12 mm Elunir, MARIUM-Prox LCx w/ 2.5 x 12 mm Elunir XIZ-QGO-Qnkt LAD w/ 2.5 x 8 mm Resolute Integrity 07/22/18 MARIUM-Prox OM1 w/ 2.75 x 12 mm Xience Alpine Stent 04/15/2014 CDF-VXZ-Jyxz LAD w/ 3.5 x 12 mm Xience Xpedition and MARIUM-Prox LCx w/ 3.5 x 8 mm Xience Xpedition 08/11/2013 CVK-VAE-Njeq Main w/ 3.0 x 16 mm Taxus Stent and MARIUM-Prox OM1 w/ 2.5 x 16 mm Taxus 11/20/2005 History of ventricular tachycardia (Chronic) Chronic renal failure, stage 4 (severe) (Chronic) Ischemic cardiomyopathy (Chronic) Right bundle branch block (Chronic) Complete AV block, 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) HLD (hyperlipidemia) (Chronic) Medical History: Medical History (Last Reviewed 01/06/20 @ 01:[address] Leon Armas MD) Chronic combined systolic and diastolic CHF (congestive heart failure) (Chronic) I50.42 Elevated troponin (Inactive) Onset Date: 02/15/19 R79.89 Stroke (Chronic) Onset Date: 02/15/19 I63.9 Atherosclerosis of coronary artery bypass graft without angina pectoris (Chronic) I25.810 PCI-MARIUM Prox OM1 w/ 2.5 x 12 mm Elunir, MARIUM-Prox LCx w/ 2.5 x 12 mm Elunir XHE-EHT-Jiwr LAD w/ 2.5 x 8 mm Resolute Integrity 07/22/18 MARIUM-Prox OM1 w/ 2.75 x 12 mm Xience Alpine Stent 04/15/2014 PHU-GCG-Sylj LAD w/ 3.5 x 12 mm Xience Xpedition and MARIUM-Prox LCx w/ 3.5 x 8 mm Xience Xpedition 08/11/2013 SXN-QPN-Xzeb Main w/ 3.0 x 16 mm Taxus Stent and MARIUM-Prox OM1 w/ 2.5 x 16 mm Taxus 11/20/2005; CABG x 2: RUSH-LAD, SVG-LCx 06/17/05 Essential (primary) hypertension (Chronic) I10 History of ventricular tachycardia (Chronic) Z86.79 Chronic renal failure, stage 4 (severe) (Chronic) N18.4 Ischemic cardiomyopathy (Chronic) I25.5 Right bundle branch block (Chronic) I45.10 Complete AV block, acquired (Chronic) I44.2 Old myocardial infarction (Chronic) I25.2 HLD (hyperlipidemia) (Chronic) E78.5 BPH (benign prostatic hyperplasia) N40.0 Diaphragmatic hernia K44.9 GERD (gastroesophageal reflux disease) K21.9 History of nephrolithiasis Z87.442 Radiculitis of leg M54.10 Type 2 diabetes mellitus E11.9 Coronary atherosclerosis of [place] coronary artery (Inactive) I25.10 NSTEMI (non-ST elevated myocardial infarction) (Inactive) I21.4 Allergies Penicillins Allergy (Verified 01/05/20 18:53) Anaphylaxis amlodipine [From Norvasc] Adverse Reaction (Intermediate, Verified 01/05/20 18:53) dizzy ezetimibe [From Zetia] Adverse Reaction (Verified 01/05/20 18:53) mylagias rosuvastatin calcium [From Crestor] Adverse Reaction (Verified 01/05/20 18:53) legs hurt Mkuejhd-Fby-Hpj Reductase Inhibitor Adverse Reaction (Verified 01/05/20 18:53) body aches Home Medications: Ambulatory Orders Medication Instructions Recorded Finasteride [Proscar] 5 mg PO DAILY 02/14/19 Folic Acid 5 mg PO DAILY 02/14/19 Ubidecarenone [Coq-10] 100 mg PO DAILY 02/14/19 l [place]/B Bifidum/B Longum 2 cap PO QHS 02/14/19 [[employer] Capsule] colestipol 1 gram tablet 1 g PO DAILY #90 tab 06/03/19 nitroglycerin 0.4 mg sublingual 0.4 mg SUBLINGUAL Q5-15M PRN #25 07/25/19 tablet tab carvedilol 3.125 mg tablet 3.125 mg PO BID #180 tab 10/11/19 clopidogrel 75 mg tablet 75 mg PO DAILY #90 tab 11/07/19 furosemide 40 mg tablet 40 mg PO DAILY tab 11/07/19 trazodone 50 mg tablet 50 mg PO DAILY 11/07/19 isosorbide mononitrate 60 mg 60 mg PO DAILY #90 tab 11/22/19 tablet,extended release 24 hr Surgical History: Surgical History (Last Reviewed 01/06/20 @ 01:[address] Leon Armas MD) H/O coronary artery bypass surgery (Chronic) Onset Date: 06/17/05 Z95.1 CABG x 2: RUSH-LAD, SVG-LCx 06/17/05 Presence of permanent cardiac pacemaker (Chronic) Onset Date: 05/2014 Z95.0 History of coronary artery stent placement (Chronic) Onset Date: 07/22/18 Z95.5 PCI-MARIUM Prox OM1 w/ 2.5 x 12 mm Elunir, MARIUM-Prox LCx w/ 2.5 x 12 mm Elunir IGN-QEN-Ckqg LAD w/ 2.5 x 8 mm Resolute Integrity 07/22/18 MARIUM-Prox OM1 w/ 2.75 x 12 mm Xience Alpine Stent 04/15/2014 ONN-MOD-Hqyg LAD w/ 3.5 x 12 mm Xience Xpedition and MARIUM-Prox LCx w/ 3.5 x 8 mm Xience Xpedition 08/11/2013 UID-CBR-Vbyq Main w/ 3.0 x 16 mm Taxus Stent and MARIUM-Prox OM1 w/ 2.5 x 16 mm Taxus 11/20/2005 History of appendectomy Z90.49 History of back surgery Z98.890 History of left heart catheterization Onset Date: 08/02/19 Z98.890 History of tonsillectomy and adenoidectomy Z98.890 Surgical History: appendectomy, coronary bypass surgery - s/p stents als, pacemaker implantation, tonsillectomy, - - h/o back surgery Psychiatric History: No pertinent psych hx Smoking Status: Unknown if ever smoked - *Family History Paternal Family History: Family History (Last Reviewed 01/06/20 @ 01:[address] Leon Armas MD) Father Myocardial infarction Hypertension Heart disease Mother Hypertension Emphysema of lung FH: brain aneurysm Daughter Afib History Items: Heart Disease - [place], Hypertension Maternal Family History: Family History (Last Reviewed 01/06/20 @ 01:[address] Leon Armas MD) Father Myocardial infarction Hypertension Heart disease Mother Hypertension Emphysema of lung FH: brain aneurysm Daughter Afib History Items: COPD, Hypertension, - - brain aneurysm Review of Systems Unable to obtain accurate/complete ROS d/t: See HPI Patient Problems: Active and Suspected Problems (Last Reviewed 01/06/20 @ 01:[address] Leon Armas MD) COVID-19 (Acute) Pneumonia due to 2019 novel coronavirus (Acute) Objective: All imaging was personally reviewed. Chest x-ray shows endotracheal tube at 4-1/2 cm above the radha. Patient did have left lower lobe atelectasis versus pleural effusion. OG was in good position. Patient is never had an echocardiogram or pulmonary function test at [facility] that is available for review. - Physical Exam Vitals/I&O's: Vital Signs Temp Pulse Resp BP Pulse Ox 36.8 C 91 18 101/52 L 98 01/06/20 10:00 01/06/20 11:25 01/06/20 11:25 01/06/20 10:00 01/06/20 11:25 Oxygen Delivery Method Mechanical Ventilator Weight: 80.5 kg Body Mass Index (BMI) 25.6 Intake and Output for Last 24 Hours 01/04/20 01/05/20 01/06/20 23:59 23:59 23:59 Intake Total 516.23 / 516.23 1848.88 / 1848.88 Output Total 215 / 215 Balance 516.23 / 516.23 1633.88 / 1633.88 General: - - Intubated. Not sedated, but not cooperative with interactions. Appears stated age. Good vent synchrony noted. HEENT: Atraumatic, PERRLA, EOMI, Normocephalic, - - No scleral icterus or injection noted Oral: No Gingival or Mucosal Lesions/ Ulcerations, Dry Mucosa Neck: Supple, No JVD, No Nodes, Trachea Midline Lungs: No rhonchi, No wheeze, No rales, Diminished, - - Symmetric expansion. No dullness to percussion. Cardiovascular: Regular rate, Regular Rhythm, Normal S1, Normal S2, No murmurs, No rub noted, No Gallop, - - Occasional PVCs Abdomen: Bowel Sounds Present, Soft, Non Tender, Non-Distended Extremities: No clubbing, No cyanosis, Edema Skin: - - Significant posterior pressure injury noted. Nonblanchable buttock bilaterally Musculoskeletal: No Tenderness to Palpation of Joints or Extremities, No Muscle Wasting Lymphatic: No Cervical, Supraclavicular, or Inguinal Adenopathy Neurological: - - Patient is not cooperative with exam. Patient does grimace with palpation of his backside. Patient not voluntarily moving extremities, but does appear to respond to stimulus. Positive cough and gag reflexes Psych/Mental Status: Flat Affect Microbiology Past 72 Hours 01/05/20 20:05 Urine Catheter - Catheter Urine Culture - Preliminary Culture exhibits no growth. 01/06/20 01:00 Urine Catheter - Pena Legionella Antigen - Final 01/06/20 01:00 Urine Catheter - Pena Streptococcus pneumoniae Antigen (M - Final 01/05/20 20:37 Mucosa - Nasopharyngeal Respiratory Panel (PCR) - Final Laboratory Results 01/05/20 19:00: Sodium 141, Potassium 5.1, Chloride 110 H, Carbon Dioxide 22.0, Anion Gap 9, BUN 107 H*, Creatinine 5.42 H, Estim Creat Clear Calc 11.00, Est GFR (MDRD) Af Amer 13 L, Est GFR (MDRD) Non-Af 11 L, BUN/Creatinine Ratio 19.7, Glucose 161 H, Calcium 9.3, Total Bilirubin 1.20 H, AST 137 H, ALT 139 H, Alkaline Phosphatase 147 H, Troponin I 3.580 H*, Total Protein 6.9, Albumin 3.4, Globulin 3.5, Albumin/Globulin Ratio 1.0 01/05/20 19:00: WBC 6.3, RBC 4.39 L, Hgb 12.0 L, Hct 40.7, MCV 92.7, MCH 27.3, MCHC 29.5 L, RDW Std Deviation 54.6 H, RDW Coeff of Iam 16.0 H, Plt Count 202, MPV 12.0, Immature Gran % (Auto) 2.100 H, Neut % (Auto) 80.1 H, Lymph % (Auto) 5.4 L, [place] % (Auto) 12.2 H, Eos % (Auto) 0.0, Baso % (Auto) 0.2, Absolute Neuts (auto) 5.1, Absolute Lymphs (auto) 0.34 L, Nucleated RBC % 0.3, Differential Comment COMMENT, Platelet Estimate ADEQUATE, Polychromasia RARE, Anisocytosis 1+, Ovalocytes 1+, Crenated Cell RARE 01/05/20 19:00: PT 17.0 H, INR 1.4, APTT 40.1 H 01/05/20 19:00: Lactic Acid 1.4 01/05/20 20:05: Urine Color Yellow, Urine Clarity Sl. Cloudy, Urine pH 5.0, Ur Specific [place] 1.020, Urine Protein 100 H, Urine Glucose (UA) Normal, Urine Ketones Negative, Urine Occult Blood 150 H, Urine Nitrite Negative, Urine Bilirubin Negative, Urine Urobilinogen Normal, Ur Leukocyte Esterase Negative, Urine RBC 10-25 SEEN, Urine WBC 0 SEEN, Ur Squamous Epith Cells 0-5 SEEN, Urine Bacteria 0 SEEN, Urine Mucus 0 SEEN 01/05/20 20:27: Specimen Type ART, Sample Site L Radial, pH 7.26 L, Bicarbonate Actual 19.4 L, Total CO2 21, Base Excess -8 L, O2 Saturation 95, O2 % 30, ABG pCO2 43.1, ABG pO2 84, Daniel Test Positive, Respiration Rate 14, O2 Delivery Device Adult Vent, Vent Mode AC, Tidal Volume 450, POC PEEP 5 01/05/20 20:37: COVID-19 (PILLO) Detected 01/06/20 01:00: Procalcitonin 11.53 H 01/06/20 01:00: Troponin I 3.250 H* 01/06/20 03:30: WBC 8.8, RBC 3.82 L, Hgb 10.3 L, Hct 35.7 L, MCV 93.5, MCH 27.0, MCHC 28.9 L, RDW Std Deviation 55.3 H, RDW Coeff of Iam 16.0 H, Plt Count 268, MPV 11.2, Neut % (Auto) Not Reportable, Absolute Neuts (auto) 8.1 H, Absolute Lymphs (auto) 0.08 L, Total Counted 100, Neutrophils % (Manual) 88 H, Band Neutrophils % 4, Lymphocytes % (Manual) 1 L, Monocytes % (Manual) 4, Basophils % (Manual) 1, Metamyelocytes % 2 H, Nucleated RBCs/100 WBC 2, Diff Path Review May foll, Toxic Granulation 2+, Toxic Vacuolation 2+, Platelet Estimate ADEQUATE, RBC Morphology NORM C+C 01/06/20 03:30: Sodium 139, Potassium 4.9, Chloride 105, Carbon Dioxide 22.0, Anion Gap 12, BUN 104 H*, Creatinine 5.33 H, Estim Creat Clear Calc 12.05, Est GFR (MDRD) Af Amer 13 L, Est GFR (MDRD) Non-Af 11 L, BUN/Creatinine Ratio 19.5, Glucose 187 H, Calcium 8.3 L, Phosphorus 6.5 H, Magnesium 2.6, Total Bilirubin 1.20 H, AST 102 H, ALT 113 H, Alkaline Phosphatase 123 H, Total Protein 5.8 L, Albumin 2.8 L, Globulin 3.0, Albumin/Globulin Ratio 0.9 01/06/20 03:30: Troponin I 3.250 H* 01/06/20 03:30: APTT 83.1 H 01/06/20 05:57: Troponin I 3.660 H* 01/06/20 10:20: APTT 148.8 H* Current Medications Acetaminophen (Acetaminophen 325 Mg Tablet) 650 mg PO Q6H PRN PRN PRN Reason: Pain Score 1-10/Temp > 100.7 F Last Admin: 01/06/20 02:23 Dose: 650 mg Documented by: Aspirin (Aspirin 81 Mg Tab.Chew) 81 mg GT DAILY@0800 [facility] Last Admin: 01/06/20 10:18 Dose: 81 mg Documented by: Chlorhexidine Gluconate (Chlorhexidine 15 Ml) 15 ml PO BID [facility] Last Admin: 01/06/20 10:18 Dose: 15 ml Documented by: Dexamethasone Sodium Phosphate (Dexamethasone 4 Mg/Ml Vial) 6 mg IV Q24 [facility] Last Admin: 01/06/20 10:18 Dose: 6 mg Documented by: Famotidine (Famotidine 20 Mg Tablet) 20 mg GT DAILY [facility] Last Admin: 01/06/20 10:18 Dose: 20 mg Documented by: Heparin Sodium (Porcine) (Heparin Injection (Vial) 5,000 Unit/Ml Vial) 0 unit IV UD PRN; Protocol PRN Reason: dose adjustment Fentanyl Citrate 1,000 mcg/ (Sodium Chloride) 100 mls @ 2.5 mls/hr CONT INF .Q40H TORREY; Protocol Last Titration: 01/06/20 08:06 Dose: 0 mcg/hr, 0 mls/hr Documented by: Propofol (Diprivan) 1,000 mg in 100 mls @ 4.866 mls/hr CONT INF .Q12H TORREY; Protocol Last Admin: 01/06/20 10:18 Dose: Not Given Documented by: Sodium Bicarbonate 50 meq/ (Dextrose) 1,050 mls @ 100 mls/hr IV .[id number] TORREY Last Admin: 01/06/20 10:19 Dose: 100 mls/hr Documented by: Heparin Sodium/Dextrose () 25,000 units in 250 mls @ 12 mls/hr IV .[id number] TORREY; Protocol Last Titration: 01/06/20 11:33 Dose: 0 units/hr, 0 mls/hr Documented by: Sodium Chloride () 250 mls @ 15 mls/hr IV .[id number] PRN PRN Reason: Saline Flush Sodium Chloride () 250 mls @ 15 mls/hr IV .[id number] PRN PRN Reason: Additional IVPB Infusion Meropenem 500 mg/ Sodium (Chloride) 60 mls @ 100 mls/hr IV Q12 [facility]OR[facility] Last Admin: 01/06/20 11:33 Dose: 100 mls/hr Documented by: Vancomycin IV Pharmacy to Dose (1 ea/ Sodium Chloride) 500 mls @ 250 mls/hr IV PRN PRN; Protocol PRN Reason: Rx to Dose Ondansetron HCl (Ondansetron 4 Mg/2 Ml Vial) 4 mg IV Q8H PRN PRN PRN Reason: NAUSEA/VOMITING Senna/Docusate Sodium (Senna/Docusate Sodium 1 Tablet) 2 tablet GT BID TORREY Sodium Chloride (0.9% Saline Lock 10 Ml Syringe) 10 - 40 ml IV UD PRN PRN Reason: SALINE FLUSH Last Admin: 01/06/20 10:20 Dose: 40 ml Documented by: Clinical Impression(s) from Imaging Studies Chest X-Ray 01/05/20 20:15 IMPRESSION: Adequate position of endotracheal tube. Adequate position of esophagogastric tube. Increasing indistinctness to the left lower lobe with increasing pleural thickening suggesting greater pleural fluid, still small volume, and increasing atelectasis.. at 2050 Reported and signed by: Carlos Hernández MD Electronically Signed: Carlos Hernández MD at 20:48 EDT Tel , Service support , Assessment/Plan Active and Suspected Problems (Last Reviewed 01/06/20 @ 01:[address] Leon Armas MD) COVID-19 (Acute) Pneumonia due to 2019 novel coronavirus (Acute) RECOMMENDATIONS: 1. Spontaneous breathing and awakening trials per protocol 2. Initiate empiric antibiotics given elevated procalcitonin pending ID consult 3. Continue heparin drip 4. Defer to hospitalist on involvement of cardiology 5. Consult Dr. Rivera. Possibly arrange for tunneled hemodialysis line 6. Continue bicarbonate drip for now IMPRESSIONS: 1. Acute hypoxic respiratory failure secondary to COVID-19 pneumonia Probable etiology of decreased movement and pressure injury secondary to COVID-19 with associated weakness. Family is not very clear on patient's last known well. Given renal failure, it is unclear if remdesivir will be an option. Okay to continue with anticoagulation and steroids from my perspective. Patient does have an elevated pro calcitonin, so superinfection would be a consideration. Infectious disease has been consulted. 2. Acute on chronic kidney disease stage IV Patient likely has an element of worsening secondary to hypoxia and possible rhabdomyolysis. Nephrology has been consulted. Await their input. Patient does have significant metabolic acidosis. Additional fluid from a bicarbonate drip does complicate management of respiratory failure. 3. Non-ST elevation MT/chronic combined congestive heart failure Patient has had a consistently elevated troponin. Patient reportedly has significant congestive heart failure at baseline. This cannot be confirmed independently. Defer to hospitalist on whether cardiology should be involved. Reasonable to continue with anticoagulation for now. 4. Nonanion gap metabolic acidosis secondary to #2 Patient placed on a bicarbonate drip. Patient was hypoxic at presentation, but lactate was relatively normal. Patient was already being followed for chronic kidney disease stage IV. Nephrology has been consulted. Given probable long-term hemodialysis, could consider proceeding directly to a tunneled hemodialysis line. Defer to nephrology. 5. Possible rhabdomyolysis secondary to pressure injury Nursing to evaluate posterior and intervene for pressure injury. Does not appear to be infected at this time. Patient does not have a CPK at this time. 6. Advanced age/elevated liver enzymes/poor historian-history Complicates care, management, recovery and prognosis. Will need to watch liver function studies closely if patient is deemed appropriate for remdesivir by infectious disease TIME: 40 minutes critical care time spent addressing patient's acute hypoxic respiratory failure, kidney disease and its complications, NSTEMI, review of all data and collaboration with care team (10:30 AM to 11:30 AM) [id number] Critical care first hour
[2020-01-06 13:26] LABS: Pathologist Review Reviewed
--- NOTE | 2020-01-06 13:33 | PCM.CONS.R ---
Consultation - Renal 01/06/20 PCP/ Referring MD: Requesting physician: [] Primary care physician: Dr. Salima Tuttle MD Reason for Consultation:: LUCIA on CKD stage 4 - History of Present Illness History of Present Illness: The patient is a 84 year old M with multiple comorbidities admitted for increased dyspnea, weakness past week. He was hypoxic on presentation with unresponsiveness. He was febrile with temp of 102. 7 on 01/05 on iv antibx, dexamethasone due to COVID. He is intubated, sedate. He is in isolation for COVID. He has worsening renal function from baseline creatinine 2.5 to 3.5 to 5.4 on admit. He is on a bicarb drip for metabolic acidosis. He has declined on the idea of chronic hemodialysis prior to COVID infection due to chronic dyspnea at rest, poor quality of life with chronic weakness. However according to the spouse, she states he changed his mind about dialysis and would consider dialysis after recent discussion with the patient. Spouse states she is not ready to give up on him and wants to try dialysis. Discussed potential risk of heart attack, stroke, hypotension, infection, bleeding with hemodialysis and possibly . She wants to do everything and try dialysis. After discussing with pt spouse, icu nurse states called in and changed pt to DNR CCA. - Allergies Allergies: Allergies Penicillins Allergy (Verified 01/05/20 18:53) Anaphylaxis amlodipine [From Norvasc] Adverse Reaction (Intermediate, Verified 01/05/20 18:53) dizzy ezetimibe [From Zetia] Adverse Reaction (Verified 01/05/20 18:53) mylagias rosuvastatin calcium [From Crestor] Adverse Reaction (Verified 01/05/20 18:53) legs hurt Sghqbye-Ikf-Ict Reductase Inhibitor Adverse Reaction (Verified 01/05/20 18:53) body aches - Current Medications Current Medications: Current Medications Acetaminophen (Acetaminophen 325 Mg Tablet) 650 mg PO Q6H PRN PRN PRN Reason: Pain Score 1-10/Temp > 100.7 F Last Admin: 01/06/20 02:23 Dose: 650 mg Documented by: Aspirin (Aspirin 81 Mg Tab.Chew) 81 mg GT DAILY@0800 [facility] Last Admin: 01/06/20 10:18 Dose: 81 mg Documented by: Chlorhexidine Gluconate (Chlorhexidine 15 Ml) 15 ml PO BID [facility] Last Admin: 01/06/20 10:18 Dose: 15 ml Documented by: Dexamethasone Sodium Phosphate (Dexamethasone 4 Mg/Ml Vial) 6 mg IV Q24 [facility] Last Admin: 01/06/20 10:18 Dose: 6 mg Documented by: Famotidine (Famotidine 20 Mg Tablet) 20 mg GT DAILY [facility] Last Admin: 01/06/20 10:18 Dose: 20 mg Documented by: Heparin Sodium (Porcine) (Heparin Injection (Vial) 5,000 Unit/Ml Vial) 0 unit IV UD PRN; Protocol PRN Reason: dose adjustment Fentanyl Citrate 1,000 mcg/ (Sodium Chloride) 100 mls @ 2.5 mls/hr CONT INF .Q40H [facility]; Protocol Last Titration: 01/06/20 08:06 Dose: 0 mcg/hr, 0 mls/hr Documented by: Propofol (Diprivan) 1,000 mg in 100 mls @ 4.866 mls/hr CONT INF .Q12H [facility]; Protocol Last Admin: 01/06/20 10:18 Dose: Not Given Documented by: Sodium Bicarbonate 50 meq/ (Dextrose) 1,050 mls @ 100 mls/hr IV .[id number] [facility] Last Admin: 01/06/20 10:19 Dose: 100 mls/hr Documented by: Heparin Sodium/Dextrose () 25,000 units in 250 mls @ 12 mls/hr IV .[id number] [facility]; Protocol Last Titration: 01/06/20 11:33 Dose: 0 units/hr, 0 mls/hr Documented by: Sodium Chloride () 250 mls @ 15 mls/hr IV .[id number] PRN PRN Reason: Saline Flush Sodium Chloride () 250 mls @ 15 mls/hr IV .[id number] PRN PRN Reason: Additional IVPB Infusion Meropenem 500 mg/ Sodium (Chloride) 60 mls @ 100 mls/hr IV Q12 [facility] Last Admin: 01/06/20 11:33 Dose: 100 mls/hr Documented by: Vancomycin IV Pharmacy to Dose (1 ea/ Sodium Chloride) 500 mls @ 250 mls/hr IV PRN PRN; Protocol PRN Reason: Rx to Dose Ondansetron HCl (Ondansetron 4 Mg/2 Ml Vial) 4 mg IV Q8H PRN PRN PRN Reason: NAUSEA/VOMITING Senna/Docusate Sodium (Senna/Docusate Sodium 1 Tablet) 2 tablet GT BID [facility] Sodium Chloride (0.9% Saline Lock 10 Ml Syringe) 10 - 40 ml IV UD PRN PRN Reason: SALINE FLUSH Last Admin: 01/06/20 10:20 Dose: 40 ml Documented by: - Past Medical History Past Medical History (Chronic Problems): Chronic Problems (Last Reviewed 01/06/20 @ 01:[address] Leon Armas MD) Chronic combined systolic and diastolic CHF (congestive heart failure) (Chronic) Stroke (Chronic 02/15/19) Atherosclerosis of coronary artery bypass graft without angina pectoris (Chronic) PCI-MARIUM Prox OM1 w/ 2.5 x 12 mm Elunir, MARIUM-Prox LCx w/ 2.5 x 12 mm Elunir [id number] LAD w/ 2.5 x 8 mm Resolute Integrity 07/22/18 MARIUM-Prox OM1 w/ 2.75 x 12 mm Xience Alpine Stent 04/15/2014 [id number] LAD w/ 3.5 x 12 mm Xience Xpedition and MARIUM-Prox LCx w/ 3.5 x 8 mm Xience Xpedition 08/11/2013 XHO-YTU-Hmzj Main w/ 3.0 x 16 mm Taxus Stent and MARIUM-Prox OM1 w/ 2.5 x 16 mm Taxus 11/20/2005; CABG x 2: RUSH-LAD, SVG-LCx 06/17/05 H/O coronary artery bypass surgery (Chronic 06/17/05) CABG x 2: RUSH-LAD, SVG-LCx 06/17/05 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) Essential (primary) hypertension (Chronic) History of coronary artery stent placement (Chronic 07/22/18) PCI-MARIUM Prox OM1 w/ 2.5 x 12 mm Elunir, MARIUM-Prox LCx w/ 2.5 x 12 mm Elunir HYA-NJU-Lafr LAD w/ 2.5 x 8 mm Resolute Integrity 07/22/18 MARIUM-Prox OM1 w/ 2.75 x 12 mm Xience Alpine Stent 04/15/2014 FWH-HHF-Blgr LAD w/ 3.5 x 12 mm Xience Xpedition and MARIUM-Prox LCx w/ 3.5 x 8 mm Xience Xpedition 08/11/2013 JTB-AWM-[id number] Main w/ 3.0 x 16 mm Taxus Stent and MARIUM-Prox OM1 w/ 2.5 x 16 mm Taxus 11/20/2005 History of ventricular tachycardia (Chronic) Chronic renal failure, stage 4 (severe) (Chronic) Ischemic cardiomyopathy (Chronic) Right bundle branch block (Chronic) Complete AV block, 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) HLD (hyperlipidemia) (Chronic) - Past Surgical History Surgical History: appendectomy, coronary bypass surgery - s/p stents als, pacemaker implantation, tonsillectomy, - - h/o back surgery - Social History Smoking Status: Unknown if ever smoked - Family History Paternal Family History: Family History (Last Reviewed 01/06/20 @ 01:[address] Leon Armas MD) Father Myocardial infarction Hypertension Heart disease Mother Hypertension Emphysema of lung FH: brain aneurysm Daughter Afib History Items: Heart Disease - [place], Hypertension Maternal Family History: Family History (Last Reviewed 01/06/20 @ 01:[address] Leon Armas MD) Father Myocardial infarction Hypertension Heart disease Mother Hypertension Emphysema of lung FH: brain aneurysm Daughter Afib History Items: COPD, Hypertension, - - brain aneurysm Review of Systems Constitutional: Reports: Fever, Malaise, Weakness Cardiovascular: Reports: Chest Pain Respiratory: Reports: Cough, Shortness of Breath, Shortness of breath at rest Musculoskeletal: Reports: - - progressive weakness Unable to obtain accurate/complete ROS d/t: sedate on vent, spoke with pt spouse on phone Patient Problems: Active and Suspected Problems (Last Reviewed 01/06/20 @ 01:[address] Leon Armas MD) COVID-19 (Acute) Pneumonia due to 2019 novel coronavirus (Acute) - Physical Exam Vitals/I&O's: Vital Signs Temp Pulse Resp BP Pulse Ox 98.3 F 91 18 101/52 L 98 01/06/20 10:00 01/06/20 11:25 01/06/20 11:25 01/06/20 10:00 01/06/20 11:25 Oxygen Delivery Method Mechanical Ventilator Weight: 80.5 kg Body Mass Index (BMI) 25.6 Intake and Output for Last 24 Hours 01/04/20 01/05/20 01/06/20 23:59 23:59 23:59 Intake Total 516.23 / 516.23 1848.88 / 1848.88 Output Total 215 / 215 Balance 516.23 / 516.23 1633.88 / 1633.88 General: Lethargic - on vent answering yes/no questions slowly Lungs: - - on vent Cardiovascular: Regular rate - paced rhythm Abdomen: Hypoactive Bowel Sounds, Distended, Tender Extremities: No edema Skin: No rashes Neurological: - - lethargic, sedate Psych/Mental Status: - - slow to respond on vent, sedate Microbiology Past 72 Hours 01/05/20 20:05 Urine Catheter - Catheter Urine Culture - Preliminary Culture exhibits no growth. 01/06/20 01:00 Urine Catheter - Pena Legionella Antigen - Final 01/06/20 01:00 Urine Catheter - Pena Streptococcus pneumoniae Antigen (M - Final 01/05/20 20:37 Mucosa - Nasopharyngeal Respiratory Panel (PCR) - Final Laboratory Results 01/05/20 19:00: Sodium 141, Potassium 5.1, Chloride 110 H, Carbon Dioxide 22.0, Anion Gap 9, BUN 107 H*, Creatinine 5.42 H, Estim Creat Clear Calc 11.00, Est GFR (MDRD) Af Amer 13 L, Est GFR (MDRD) Non-Af 11 L, BUN/Creatinine Ratio 19.7, Glucose 161 H, Calcium 9.3, Total Bilirubin 1.20 H, AST 137 H, ALT 139 H, Alkaline Phosphatase 147 H, Troponin I 3.580 H*, Total Protein 6.9, Albumin 3.4, Globulin 3.5, Albumin/Globulin Ratio 1.0 01/05/20 19:00: WBC 6.3, RBC 4.39 L, Hgb 12.0 L, Hct 40.7, MCV 92.7, MCH 27.3, MCHC 29.5 L, RDW Std Deviation 54.6 H, RDW Coeff of Iam 16.0 H, Plt Count 202, MPV 12.0, Immature Gran % (Auto) 2.100 H, Neut % (Auto) 80.1 H, Lymph % (Auto) 5.4 L, Thayer % (Auto) 12.2 H, Eos % (Auto) 0.0, Baso % (Auto) 0.2, Absolute Neuts (auto) 5.1, Absolute Lymphs (auto) 0.34 L, Nucleated RBC % 0.3, Differential Comment COMMENT, Platelet Estimate ADEQUATE, Polychromasia RARE, Anisocytosis 1+, Ovalocytes 1+, Crenated Cell RARE 01/05/20 19:00: PT 17.0 H, INR 1.4, APTT 40.1 H 01/05/20 19:00: Lactic Acid 1.4 01/05/20 20:05: Urine Color Yellow, Urine Clarity Sl. Cloudy, Urine pH 5.0, Ur Specific [place] 1.020, Urine Protein 100 H, Urine Glucose (UA) Normal, Urine Ketones Negative, Urine Occult Blood 150 H, Urine Nitrite Negative, Urine Bilirubin Negative, Urine Urobilinogen Normal, Ur Leukocyte Esterase Negative, Urine RBC 10-25 SEEN, Urine WBC 0 SEEN, Ur Squamous Epith Cells 0-5 SEEN, Urine Bacteria 0 SEEN, Urine Mucus 0 SEEN 01/05/20 20:27: Specimen Type ART, Sample Site L Radial, pH 7.26 L, Bicarbonate Actual 19.4 L, Total CO2 21, Base Excess -8 L, O2 Saturation 95, O2 % 30, ABG pCO2 43.1, ABG pO2 84, Daniel Test Positive, Respiration Rate 14, O2 Delivery Device Adult Vent, Vent Mode AC, Tidal Volume 450, POC PEEP 5 01/05/20 20:37: COVID-19 (PILLO) Detected 01/06/20 01:00: Procalcitonin 11.53 H 01/06/20 01:00: Troponin I 3.250 H* 01/06/20 03:30: WBC 8.8, RBC 3.82 L, Hgb 10.3 L, Hct 35.7 L, MCV 93.5, MCH 27.0, MCHC 28.9 L, RDW Std Deviation 55.3 H, RDW Coeff of Iam 16.0 H, Plt Count 268, MPV 11.2, Neut % (Auto) Not Reportable, Absolute Neuts (auto) 8.1 H, Absolute Lymphs (auto) 0.08 L, Total Counted 100, Neutrophils % (Manual) 88 H, Band Neutrophils % 4, Lymphocytes % (Manual) 1 L, Monocytes % (Manual) 4, Basophils % (Manual) 1, Metamyelocytes % 2 H, Nucleated RBCs/100 WBC 2, Diff Path Review Reviewed, Toxic Granulation 2+, Toxic Vacuolation 2+, Platelet Estimate ADEQUATE, RBC Morphology NORM C+C 01/06/20 03:30: Sodium 139, Potassium 4.9, Chloride 105, Carbon Dioxide 22.0, Anion Gap 12, BUN 104 H*, Creatinine 5.33 H, Estim Creat Clear Calc 12.05, Est GFR (MDRD) Af Amer 13 L, Est GFR (MDRD) Non-Af 11 L, BUN/Creatinine Ratio 19.5, Glucose 187 H, Calcium 8.3 L, Phosphorus 6.5 H, Magnesium 2.6, Total Bilirubin 1.20 H, AST 102 H, ALT 113 H, Alkaline Phosphatase 123 H, Total Protein 5.8 L, Albumin 2.8 L, Globulin 3.0, Albumin/Globulin Ratio 0.9 01/06/20 03:30: Troponin I 3.250 H* 01/06/20 03:30: APTT 83.1 H 01/06/20 05:57: Troponin I 3.660 H* 01/06/20 10:20: APTT 148.8 H* Clinical Impression(s) from Imaging Studies Chest X-Ray 01/05/20 20:15 IMPRESSION: Adequate position of endotracheal tube. Adequate position of esophagogastric tube. Increasing indistinctness to the left lower lobe with increasing pleural thickening suggesting greater pleural fluid, still small volume, and increasing atelectasis.. at 2050 Reported and signed by: Carlos Hernández MD Electronically Signed: Carlos Hernández MD at 20:48 EDT Tel , Service support , Current Medications Acetaminophen (Acetaminophen 325 Mg Tablet) 650 mg PO Q6H PRN PRN PRN Reason: Pain Score 1-10/Temp > 100.7 F Last Admin: 01/06/20 02:23 Dose: 650 mg Documented by: Aspirin (Aspirin 81 Mg Tab.Chew) 81 mg GT DAILY@0800 [facility] Last Admin: 01/06/20 10:18 Dose: 81 mg Documented by: Chlorhexidine Gluconate (Chlorhexidine 15 Ml) 15 ml PO BID [facility] Last Admin: 01/06/20 10:18 Dose: 15 ml Documented by: Dexamethasone Sodium Phosphate (Dexamethasone 4 Mg/Ml Vial) 6 mg IV Q24 [facility] Last Admin: 01/06/20 10:18 Dose: 6 mg Documented by: Famotidine (Famotidine 20 Mg Tablet) 20 mg GT DAILY [facility] Last Admin: 01/06/20 10:18 Dose: 20 mg Documented by: Heparin Sodium (Porcine) (Heparin Injection (Vial) 5,000 Unit/Ml Vial) 0 unit IV UD PRN; Protocol PRN Reason: dose adjustment Fentanyl Citrate 1,000 mcg/ (Sodium Chloride) 100 mls @ 2.5 mls/hr CONT INF .Q40H [facility]; Protocol Last Titration: 01/06/20 08:06 Dose: 0 mcg/hr, 0 mls/hr Documented by: Propofol (Diprivan) 1,000 mg in 100 mls @ 4.866 mls/hr CONT INF .Q12H [facility]; Protocol Last Admin: 01/06/20 10:18 Dose: Not Given Documented by: Sodium Bicarbonate 50 meq/ (Dextrose) 1,050 mls @ 100 mls/hr IV .[id number] [facility] Last Admin: 01/06/20 10:19 Dose: 100 mls/hr Documented by: Heparin Sodium/Dextrose () 25,000 units in 250 mls @ 12 mls/hr IV .[id number] [facility]; Protocol Last Titration: 01/06/20 11:33 Dose: 0 units/hr, 0 mls/hr Documented by: Sodium Chloride () 250 mls @ 15 mls/hr IV .[id number] PRN PRN Reason: Saline Flush Sodium Chloride () 250 mls @ 15 mls/hr IV .[id number] PRN PRN Reason: Additional IVPB Infusion Meropenem 500 mg/ Sodium (Chloride) 60 mls @ 100 mls/hr IV Q12 [facility] Last Admin: 01/06/20 11:33 Dose: 100 mls/hr Documented by: Vancomycin IV Pharmacy to Dose (1 ea/ Sodium Chloride) 500 mls @ 250 mls/hr IV PRN PRN; Protocol PRN Reason: Rx to Dose Ondansetron HCl (Ondansetron 4 Mg/2 Ml Vial) 4 mg IV Q8H PRN PRN PRN Reason: NAUSEA/VOMITING Senna/Docusate Sodium (Senna/Docusate Sodium 1 Tablet) 2 tablet GT BID [facility] Sodium Chloride (0.9% Saline Lock 10 Ml Syringe) 10 - 40 ml IV UD PRN PRN Reason: SALINE FLUSH Last Admin: 01/06/20 10:20 Dose: 40 ml Documented by: Assessment/Plan All Active Problems (Last Reviewed 01/06/20 @ 01:[address] Leon Armas MD) COVID-19 (Acute) Pneumonia due to 2019 novel coronavirus (Acute) 1. Oliguric Lucia on CKD Stage 4 with underlying diabetic nephropathy, cardiorenal syndrome LVEF 20%. Acute event from [facility], COVID positive, weakness, poor intake on diuretics chronically at home for hx CHF. Poor dialysis candidate. Prognosis poor with multisystem organ involvement of lungs, heart with +troponins, elevated liver enzymes along with LUCIA. Pt spouse wants everything done including dialysis. Discussed potential risks with dialysis with spouse. She would like to proceed. Pt changed DNR status to CCA per POA and pt spouse. consult GS for dialysis catheter placement to initiate hemodialysis for elevated BUN/Cr. BUN 104, Creatinine 5.4 with baseline creatinine 2.5-3.5. currently on heparin drip that needs to be discontinued for dialysis line placement. Consent received over phone for dialysis catheter placement and hemodialysis. Check urine sodium, creatinine 2. Acute respiratory failure on vent 3. COVID positive on dexa 4. + troponins with nonspecific ST-T wave changes, LBBB. On heparin drip 5. CAD s/p CABG PPM 6. DM2 stable sugars 7. Hypotension, sepsis syndrome on renal dose antibx. 8. Elevated liver enzymes. DW CCM, nursing staff, pt spouse and POA
--- NOTE | 2020-01-06 14:17 | PCM.PN.HOSP ---
Patient Problems: Active and Suspected Problems (Last Reviewed 01/06/20 @ 01:[address] Leon Armas MD) COVID-19 (Acute) Pneumonia due to 2019 novel coronavirus (Acute) Reason for Visit: Respiratory failure. Subjective: On vent. Vitals/I&O's: Vital Signs Temp Pulse Resp BP Pulse Ox 36.8 C 91 18 101/52 L 98 01/06/20 10:00 01/06/20 11:25 01/06/20 11:25 01/06/20 10:00 01/06/20 11:25 Oxygen Delivery Method Mechanical Ventilator Weight: 80.5 kg Body Mass Index (BMI) 25.6 Intake and Output for Last 24 Hours 01/04/20 01/05/20 01/06/20 23:59 23:59 23:59 Intake Total 516.23 / 516.23 1910.13 / 1910.13 Output Total 215 / 215 Balance 516.23 / 516.23 1695.13 / 1695.13 General: - - intubated and sedated HEENT: Atraumatic, Normocephalic Oral: Moist Mucosa, No Gingival or Mucosal Lesions/ Ulcerations Lungs: - - coarse breath sounds Cardiovascular: Regular rate, Regular Rhythm, Normal S1, Normal S2 Abdomen: Bowel Sounds Present, Soft, Non Tender, Non-Distended, No Hepato-splenomegaly Extremities: No edema, No Calf Tenderness Microbiology Past 72 Hours 01/05/20 20:05 Urine Catheter - Catheter Urine Culture - Preliminary Culture exhibits no growth. 01/06/20 01:00 Urine Catheter - Pena Legionella Antigen - Final 01/06/20 01:00 Urine Catheter - Pena Streptococcus pneumoniae Antigen (M - Final 01/05/20 20:37 Mucosa - Nasopharyngeal Respiratory Panel (PCR) - Final Laboratory Results 01/05/20 19:00: Sodium 141, Potassium 5.1, Chloride 110 H, Carbon Dioxide 22.0, Anion Gap 9, BUN 107 H*, Creatinine 5.42 H, Estim Creat Clear Calc 11.00, Est GFR (MDRD) Af Amer 13 L, Est GFR (MDRD) Non-Af 11 L, BUN/Creatinine Ratio 19.7, Glucose 161 H, Calcium 9.3, Total Bilirubin 1.20 H, AST 137 H, ALT 139 H, Alkaline Phosphatase 147 H, Troponin I 3.580 H*, Total Protein 6.9, Albumin 3.4, Globulin 3.5, Albumin/Globulin Ratio 1.0 01/05/20 19:00: WBC 6.3, RBC 4.39 L, Hgb 12.0 L, Hct 40.7, MCV 92.7, MCH 27.3, MCHC 29.5 L, RDW Std Deviation 54.6 H, RDW Coeff of Iam 16.0 H, Plt Count 202, MPV 12.0, Immature Gran % (Auto) 2.100 H, Neut % (Auto) 80.1 H, Lymph % (Auto) 5.4 L, Lewis % (Auto) 12.2 H, Eos % (Auto) 0.0, Baso % (Auto) 0.2, Absolute Neuts (auto) 5.1, Absolute Lymphs (auto) 0.34 L, Nucleated RBC % 0.3, Differential Comment COMMENT, Platelet Estimate ADEQUATE, Polychromasia RARE, Anisocytosis 1+, Ovalocytes 1+, Crenated Cell RARE 01/05/20 19:00: PT 17.0 H, INR 1.4, APTT 40.1 H 01/05/20 19:00: Lactic Acid 1.4 01/05/20 20:05: Urine Color Yellow, Urine Clarity Sl. Cloudy, Urine pH 5.0, Ur Specific [place] 1.020, Urine Protein 100 H, Urine Glucose (UA) Normal, Urine Ketones Negative, Urine Occult Blood 150 H, Urine Nitrite Negative, Urine Bilirubin Negative, Urine Urobilinogen Normal, Ur Leukocyte Esterase Negative, Urine RBC 10-25 SEEN, Urine WBC 0 SEEN, Ur Squamous Epith Cells 0-5 SEEN, Urine Bacteria 0 SEEN, Urine Mucus 0 SEEN 01/05/20 20:27: Specimen Type ART, Sample Site L Radial, pH 7.26 L, Bicarbonate Actual 19.4 L, Total CO2 21, Base Excess -8 L, O2 Saturation 95, O2 % 30, ABG pCO2 43.1, ABG pO2 84, Daniel Test Positive, Respiration Rate 14, O2 Delivery Device Adult Vent, Vent Mode AC, Tidal Volume 450, POC PEEP 5 01/05/20 20:37: COVID-19 (PILLO) Detected 01/06/20 01:00: Procalcitonin 11.53 H 01/06/20 01:00: Troponin I 3.250 H* 01/06/20 03:30: WBC 8.8, RBC 3.82 L, Hgb 10.3 L, Hct 35.7 L, MCV 93.5, MCH 27.0, MCHC 28.9 L, RDW Std Deviation 55.3 H, RDW Coeff of Iam 16.0 H, Plt Count 268, MPV 11.2, Neut % (Auto) Not Reportable, Absolute Neuts (auto) 8.1 H, Absolute Lymphs (auto) 0.08 L, Total Counted 100, Neutrophils % (Manual) 88 H, Band Neutrophils % 4, Lymphocytes % (Manual) 1 L, Monocytes % (Manual) 4, Basophils % (Manual) 1, Metamyelocytes % 2 H, Nucleated RBCs/100 WBC 2, Diff Path Review Reviewed, Toxic Granulation 2+, Toxic Vacuolation 2+, Platelet Estimate ADEQUATE, RBC Morphology NORM C+C 01/06/20 03:30: Sodium 139, Potassium 4.9, Chloride 105, Carbon Dioxide 22.0, Anion Gap 12, BUN 104 H*, Creatinine 5.33 H, Estim Creat Clear Calc 12.05, Est GFR (MDRD) Af Amer 13 L, Est GFR (MDRD) Non-Af 11 L, BUN/Creatinine Ratio 19.5, Glucose 187 H, Calcium 8.3 L, Phosphorus 6.5 H, Magnesium 2.6, Total Bilirubin 1.20 H, AST 102 H, ALT 113 H, Alkaline Phosphatase 123 H, Total Protein 5.8 L, Albumin 2.8 L, Globulin 3.0, Albumin/Globulin Ratio 0.9 01/06/20 03:30: Troponin I 3.250 H* 01/06/20 03:30: APTT 83.1 H 01/06/20 05:57: Troponin I 3.660 H* 01/06/20 10:20: APTT 148.8 H* Current Medications Acetaminophen (Acetaminophen 325 Mg Tablet) 650 mg PO Q6H PRN PRN PRN Reason: Pain Score 1-10/Temp > 100.7 F Last Admin: 01/06/20 02:23 Dose: 650 mg Documented by: Aspirin (Aspirin 81 Mg Tab.Chew) 81 mg GT DAILY@0800 [facility] Last Admin: 01/06/20 10:18 Dose: 81 mg Documented by: Chlorhexidine Gluconate (Chlorhexidine 15 Ml) 15 ml PO BID [facility] Last Admin: 01/06/20 10:18 Dose: 15 ml Documented by: Dexamethasone Sodium Phosphate (Dexamethasone 4 Mg/Ml Vial) 6 mg IV Q24 [facility] Last Admin: 01/06/20 10:18 Dose: 6 mg Documented by: Famotidine (Famotidine 20 Mg Tablet) 20 mg GT DAILY [facility] Last Admin: 01/06/20 10:18 Dose: 20 mg Documented by: Heparin Sodium (Porcine) (Heparin Injection (Vial) 5,000 Unit/Ml Vial) 0 unit IV UD PRN; Protocol PRN Reason: dose adjustment Fentanyl Citrate 1,000 mcg/ (Sodium Chloride) 100 mls @ 2.5 mls/hr CONT INF .Q40H [facility]; Protocol Last Titration: 01/06/20 10:30 Dose: 25 mcg/hr, 2.5 mls/hr Documented by: Propofol (Diprivan) 1,000 mg in 100 mls @ 4.866 mls/hr CONT INF .Q12H [facility]; Protocol Last Admin: 01/06/20 10:18 Dose: Not Given Documented by: Sodium Bicarbonate 50 meq/ (Dextrose) 1,050 mls @ 100 mls/hr IV .[id number] [facility] Last Admin: 01/06/20 10:19 Dose: 100 mls/hr Documented by: Heparin Sodium/Dextrose () 25,000 units in 250 mls @ 12 mls/hr IV .[id number] [facility]; Protocol Last Titration: 01/06/20 13:37 Dose: 800 units/hr, 8 mls/hr Documented by: Sodium Chloride () 250 mls @ 15 mls/hr IV .[id number] PRN PRN Reason: Saline Flush Sodium Chloride () 250 mls @ 15 mls/hr IV .[id number] PRN PRN Reason: Additional IVPB Infusion Meropenem 500 mg/ Sodium (Chloride) 60 mls @ 100 mls/hr IV Q12 [facility] Last Infusion: 01/06/20 12:09 Dose: Infused Documented by: Vancomycin IV Pharmacy to Dose (1 ea/ Sodium Chloride) 500 mls @ 250 mls/hr IV PRN PRN; Protocol PRN Reason: Rx to Dose Ondansetron HCl (Ondansetron 4 Mg/2 Ml Vial) 4 mg IV Q8H PRN PRN PRN Reason: NAUSEA/VOMITING Senna/Docusate Sodium (Senna/Docusate Sodium 1 Tablet) 2 tablet GT BID [facility] Sodium Chloride (0.9% Saline Lock 10 Ml Syringe) 10 - 40 ml IV UD PRN PRN Reason: SALINE FLUSH Last Admin: 01/06/20 10:20 Dose: 40 ml Documented by: STROKE Vital Signs/Narrative: Vital Signs Pulse Resp Pulse Ox 01/06/20 11:25 91 18 98 01/06/20 11:16 93 Medical Necessity - Tobacco Use Smoking Status: Unknown if ever smoked Assessment/Plan All Active Problems (Last Reviewed 01/06/20 @ 01:[address] Leon Armas MD) COVID-19 (Acute) Pneumonia due to 2019 novel coronavirus (Acute) 1. acute hypoxic respiratory failure: 2/2 COVID pneumonia 2. acute COVID-19 pneumonia. On dexamethasone. Not candidate for remdesivir. On meropenem and vancomycin. 3. NSTEMI, suspect type II given above, but also skewed given CKD. Consider echocardiogram. On ASA. DC heparin gtt. 4. HFrEF: EF 20% from echo from 07/2018 5. LUCIA: baseline around 2.5, now up to 5.33. Nephrology on consult. DW Dr. Rivera, she discussed with and she wishes to him to have HD. General surgery on consult for catheter placement. 6. VTE prophylaxis: Change to SQ heparin. Inpatient E&M: 50119 Subs Hosp L2
--- NOTE | 2020-01-06 15:13 | PCM.HP.ID ---
Problem List (1) COVID-19 Status: Acute Reason for Consult: covid Consulted by: Dr. Dugan History of Present Illness: The patient is a 84 year old M with CAD, CKD, taken to ED due to hypoxia. Pt intubated and unable to provide history. Fever to 102.7, admitted on dex, vanc, meroepenem after doses of levaquin and aztreonam. PCT was 11. ROS unobtainable due to intubation - Medical History Past Medical History (Chronic Problems): Chronic Problems (Last Reviewed 01/06/20 @ 01:[address] Leon Armas MD) Chronic combined systolic and diastolic CHF (congestive heart failure) (Chronic) Stroke (Chronic 02/15/19) Atherosclerosis of coronary artery bypass graft without angina pectoris (Chronic) PCI-MARIUM Prox OM1 w/ 2.5 x 12 mm Elunir, MARIUM-Prox LCx w/ 2.5 x 12 mm Elunir ZRS-NDB-Poph LAD w/ 2.5 x 8 mm Resolute Integrity 07/22/18 MARIUM-Prox OM1 w/ 2.75 x 12 mm Xience Alpine Stent 04/15/2014 QZY-QBJ-Bktq LAD w/ 3.5 x 12 mm Xience Xpedition and MARIUM-Prox LCx w/ 3.5 x 8 mm Xience Xpedition 08/11/2013 GXQ-CWV-Uder Main w/ 3.0 x 16 mm Taxus Stent and MARIUM-Prox OM1 w/ 2.5 x 16 mm Taxus 11/20/2005; CABG x 2: RUSH-LAD, SVG-LCx 06/17/05 H/O coronary artery bypass surgery (Chronic 06/17/05) CABG x 2: RUSH-LAD, SVG-LCx 06/17/05 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) Essential (primary) hypertension (Chronic) History of coronary artery stent placement (Chronic 07/22/18) PCI-MARIUM Prox OM1 w/ 2.5 x 12 mm Elunir, MARIUM-Prox LCx w/ 2.5 x 12 mm Elunir MIT-WPE-Lbtc LAD w/ 2.5 x 8 mm Resolute Integrity 07/22/18 MARIUM-Prox OM1 w/ 2.75 x 12 mm Xience Alpine Stent 04/15/2014 TNE-IVJ-Ulgq LAD w/ 3.5 x 12 mm Xience Xpedition and MARIUM-Prox LCx w/ 3.5 x 8 mm Xience Xpedition 08/11/2013 KPZ-CFW-Wdew Main w/ 3.0 x 16 mm Taxus Stent and MARIUM-Prox OM1 w/ 2.5 x 16 mm Taxus 11/20/2005 History of ventricular tachycardia (Chronic) Chronic renal failure, stage 4 (severe) (Chronic) Ischemic cardiomyopathy (Chronic) Right bundle branch block (Chronic) Complete AV block, 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) HLD (hyperlipidemia) (Chronic) Allergies/Adverse Reactions: Allergies Penicillins Allergy (Verified 01/05/20 18:53) Anaphylaxis amlodipine [From Norvasc] Adverse Reaction (Intermediate, Verified 01/05/20 18:53) dizzy ezetimibe [From Zetia] Adverse Reaction (Verified 01/05/20 18:53) mylagias rosuvastatin calcium [From Crestor] Adverse Reaction (Verified 01/05/20 18:53) legs hurt Gfxnrwi-Yht-Oad Reductase Inhibitor Adverse Reaction (Verified 01/05/20 18:53) body aches Home Medications: Ambulatory Orders Medication Instructions Recorded Finasteride [Proscar] 5 mg PO DAILY 02/14/19 Folic Acid 5 mg PO DAILY 02/14/19 Ubidecarenone [Coq-10] 100 mg PO DAILY 02/14/19 l Gasseri/B Bifidum/B Longum 2 cap PO QHS 02/14/19 [Nexavis Capsule] colestipol 1 gram tablet 1 g PO DAILY #90 tab 06/03/19 nitroglycerin 0.4 mg sublingual 0.4 mg SUBLINGUAL Q5-15M PRN #25 07/25/19 tablet tab carvedilol 3.125 mg tablet 3.125 mg PO BID #180 tab 10/11/19 clopidogrel 75 mg tablet 75 mg PO DAILY #90 tab 11/07/19 furosemide 40 mg tablet 40 mg PO DAILY tab 11/07/19 trazodone 50 mg tablet 50 mg PO DAILY 11/07/19 isosorbide mononitrate 60 mg 60 mg PO DAILY #90 tab 11/22/19 tablet,extended release 24 hr - Social History Tobacco Use: non-smoker Vital Signs Temp Pulse Resp BP Pulse Ox 98.9 F 73 16 106/46 L 99 01/06/20 14:00 01/06/20 15:00 01/06/20 15:00 01/06/20 14:00 01/06/20 15:00 Oxygen Delivery Method Mechanical Ventilator Weight: 80.5 kg Body Mass Index (BMI) 25.6 Microbiology Past 72 Hours 01/05/20 20:05 Urine Culture - Preliminary Urine Catheter - Catheter Culture exhibits no growth. 01/06/20 01:00 Legionella Antigen - Final Urine Catheter - Pena Streptococcus pneumoniae Antigen (M - Final 01/05/20 20:37 Respiratory Panel (PCR) - Final Mucosa - Nasopharyngeal Laboratory Tests Past 24 Hrs 01/05/20 01/05/20 01/05/20 19:00 19:00 19:00 WBC 6.3 RBC 4.39 L Hgb 12.0 L Hct 40.7 MCV 92.7 MCH 27.3 MCHC 29.5 L RDW Std Deviation 54.6 H RDW Coeff of Iam 16.0 H Plt Count 202 MPV 12.0 Immature Gran % (Auto) 2.100 H Neut % (Auto) 80.1 H Lymph % (Auto) 5.4 L [place] % (Auto) 12.2 H Eos % (Auto) 0.0 Baso % (Auto) 0.2 Absolute Neuts (auto) 5.1 Absolute Lymphs (auto) 0.34 L Total Counted Neutrophils % (Manual) Band Neutrophils % Lymphocytes % (Manual) Monocytes % (Manual) Basophils % (Manual) Metamyelocytes % Nucleated RBC % 0.3 Nucleated RBCs/100 WBC Differential Comment COMMENT Diff Path Review Toxic Granulation Toxic Vacuolation Platelet Estimate ADEQUATE RBC Morphology Polychromasia RARE Anisocytosis 1+ Ovalocytes 1+ Crenated Cell RARE PT 17.0 H INR 1.4 APTT 40.1 H Specimen Type Sample Site pH Bicarbonate Actual Total CO2 Base Excess O2 Saturation O2 % ABG pCO2 ABG pO2 Daniel Test Respiration Rate O2 Delivery Device Vent Mode Tidal Volume POC PEEP Sodium 141 Potassium 5.1 Chloride 110 H Carbon Dioxide 22.0 Anion Gap 9 BUN 107 H* Creatinine 5.42 H Estim Creat Clear Calc 11.00 Est GFR (MDRD) Af Amer 13 L Est GFR (MDRD) Non-Af 11 L BUN/Creatinine Ratio 19.7 Glucose 161 H Lactic Acid Calcium 9.3 Phosphorus Magnesium Total Bilirubin 1.20 H AST 137 H ALT 139 H Alkaline Phosphatase 147 H Troponin I 3.580 H* Total Protein 6.9 Albumin 3.4 Globulin 3.5 Albumin/Globulin Ratio 1.0 Procalcitonin Urine Color Urine Clarity Urine pH Ur Specific [place] Urine Protein Urine Glucose (UA) Urine Ketones Urine Occult Blood Urine Nitrite Urine Bilirubin Urine Urobilinogen Ur Leukocyte Esterase Urine RBC Urine WBC Ur Squamous Epith Cells Urine Bacteria Urine Mucus COVID-19 (PILLO) 01/05/20 01/05/20 01/05/20 19:00 20:05 20:27 WBC RBC Hgb Hct MCV MCH MCHC RDW Std Deviation RDW Coeff of Iam Plt Count MPV Immature Gran % (Auto) Neut % (Auto) Lymph % (Auto) [place] % (Auto) Eos % (Auto) Baso % (Auto) Absolute Neuts (auto) Absolute Lymphs (auto) Total Counted Neutrophils % (Manual) Band Neutrophils % Lymphocytes % (Manual) Monocytes % (Manual) Basophils % (Manual) Metamyelocytes % Nucleated RBC % Nucleated RBCs/100 WBC Differential Comment Diff Path Review Toxic Granulation Toxic Vacuolation Platelet Estimate RBC Morphology Polychromasia Anisocytosis Ovalocytes Crenated Cell PT INR APTT Specimen Type ART Sample Site L Radial pH 7.26 L Bicarbonate Actual 19.4 L Total CO2 21 Base Excess -8 L O2 Saturation 95 O2 % 30 ABG pCO2 43.1 ABG pO2 84 Daniel Test Positive Respiration Rate 14 O2 Delivery Device Adult Vent Vent Mode AC Tidal Volume 450 POC PEEP 5 Sodium Potassium Chloride Carbon Dioxide Anion Gap BUN Creatinine Estim Creat Clear Calc Est GFR (MDRD) Af Amer Est GFR (MDRD) Non-Af BUN/Creatinine Ratio Glucose Lactic Acid 1.4 Calcium Phosphorus Magnesium Total Bilirubin AST ALT Alkaline Phosphatase Troponin I Total Protein Albumin Globulin Albumin/Globulin Ratio Procalcitonin Urine Color Yellow Urine Clarity Sl. Cloudy Urine pH 5.0 Ur Specific [place] 1.020 Urine Protein 100 H Urine Glucose (UA) Normal Urine Ketones Negative Urine Occult Blood 150 H Urine Nitrite Negative Urine Bilirubin Negative Urine Urobilinogen Normal Ur Leukocyte Esterase Negative Urine RBC 10-25 SEEN Urine WBC 0 SEEN Ur Squamous Epith Cells 0-5 SEEN Urine Bacteria 0 SEEN Urine Mucus 0 SEEN COVID-19 (PILLO) 01/05/20 01/06/20 01/06/20 20:37 01:00 01:00 WBC RBC Hgb Hct MCV MCH MCHC RDW Std Deviation RDW Coeff of Iam Plt Count MPV Immature Gran % (Auto) Neut % (Auto) Lymph % (Auto) [place] % (Auto) Eos % (Auto) Baso % (Auto) Absolute Neuts (auto) Absolute Lymphs (auto) Total Counted Neutrophils % (Manual) Band Neutrophils % Lymphocytes % (Manual) Monocytes % (Manual) Basophils % (Manual) Metamyelocytes % Nucleated RBC % Nucleated RBCs/100 WBC Differential Comment Diff Path Review Toxic Granulation Toxic Vacuolation Platelet Estimate RBC Morphology Polychromasia Anisocytosis Ovalocytes Crenated Cell PT INR APTT Specimen Type Sample Site pH Bicarbonate Actual Total CO2 Base Excess O2 Saturation O2 % ABG pCO2 ABG pO2 Daniel Test Respiration Rate O2 Delivery Device Vent Mode Tidal Volume POC PEEP Sodium Potassium Chloride Carbon Dioxide Anion Gap BUN Creatinine Estim Creat Clear Calc Est GFR (MDRD) Af Amer Est GFR (MDRD) Non-Af BUN/Creatinine Ratio Glucose Lactic Acid Calcium Phosphorus Magnesium Total Bilirubin AST ALT Alkaline Phosphatase Troponin I 3.250 H* Total Protein Albumin Globulin Albumin/Globulin Ratio Procalcitonin 11.53 H Urine Color Urine Clarity Urine pH Ur Specific [place] Urine Protein Urine Glucose (UA) Urine Ketones Urine Occult Blood Urine Nitrite Urine Bilirubin Urine Urobilinogen Ur Leukocyte Esterase Urine RBC Urine WBC Ur Squamous Epith Cells Urine Bacteria Urine Mucus COVID-19 (PILLO) Detected 01/06/20 01/06/20 01/06/20 03:30 03:30 03:30 WBC 8.8 RBC 3.82 L Hgb 10.3 L Hct 35.7 L MCV 93.5 MCH 27.0 MCHC 28.9 L RDW Std Deviation 55.3 H RDW Coeff of Iam 16.0 H Plt Count 268 MPV 11.2 Immature Gran % (Auto) Neut % (Auto) Not Reportable Lymph % (Auto) [place] % (Auto) Eos % (Auto) Baso % (Auto) Absolute Neuts (auto) 8.1 H Absolute Lymphs (auto) 0.08 L Total Counted 100 Neutrophils % (Manual) 88 H Band Neutrophils % 4 Lymphocytes % (Manual) 1 L Monocytes % (Manual) 4 Basophils % (Manual) 1 Metamyelocytes % 2 H Nucleated RBC % Nucleated RBCs/100 WBC 2 Differential Comment Diff Path Review Reviewed Toxic Granulation 2+ Toxic Vacuolation 2+ Platelet Estimate ADEQUATE RBC Morphology NORM C+C Polychromasia Anisocytosis Ovalocytes Crenated Cell PT INR APTT Specimen Type Sample Site pH Bicarbonate Actual Total CO2 Base Excess O2 Saturation O2 % ABG pCO2 ABG pO2 Daniel Test Respiration Rate O2 Delivery Device Vent Mode Tidal Volume POC PEEP Sodium 139 Potassium 4.9 Chloride 105 Carbon Dioxide 22.0 Anion Gap 12 BUN 104 H* Creatinine 5.33 H Estim Creat Clear Calc 12.05 Est GFR (MDRD) Af Amer 13 L Est GFR (MDRD) Non-Af 11 L BUN/Creatinine Ratio 19.5 Glucose 187 H Lactic Acid Calcium 8.3 L Phosphorus 6.5 H Magnesium 2.6 Total Bilirubin 1.20 H AST 102 H ALT 113 H Alkaline Phosphatase 123 H Troponin I 3.250 H* Total Protein 5.8 L Albumin 2.8 L Globulin 3.0 Albumin/Globulin Ratio 0.9 Procalcitonin Urine Color Urine Clarity Urine pH Ur Specific [place] Urine Protein Urine Glucose (UA) Urine Ketones Urine Occult Blood Urine Nitrite Urine Bilirubin Urine Urobilinogen Ur Leukocyte Esterase Urine RBC Urine WBC Ur Squamous Epith Cells Urine Bacteria Urine Mucus COVID-19 (PILLO) 01/06/20 01/06/20 01/06/20 03:30 05:57 10:20 WBC RBC Hgb Hct MCV MCH MCHC RDW Std Deviation RDW Coeff of Iam Plt Count MPV Immature Gran % (Auto) Neut % (Auto) Lymph % (Auto) [place] % (Auto) Eos % (Auto) Baso % (Auto) Absolute Neuts (auto) Absolute Lymphs (auto) Total Counted Neutrophils % (Manual) Band Neutrophils % Lymphocytes % (Manual) Monocytes % (Manual) Basophils % (Manual) Metamyelocytes % Nucleated RBC % Nucleated RBCs/100 WBC Differential Comment Diff Path Review Toxic Granulation Toxic Vacuolation Platelet Estimate RBC Morphology Polychromasia Anisocytosis Ovalocytes Crenated Cell PT INR APTT 83.1 H 148.8 H* Specimen Type Sample Site pH Bicarbonate Actual Total CO2 Base Excess O2 Saturation O2 % ABG pCO2 ABG pO2 Daniel Test Respiration Rate O2 Delivery Device Vent Mode Tidal Volume POC PEEP Sodium Potassium Chloride Carbon Dioxide Anion Gap BUN Creatinine Estim Creat Clear Calc Est GFR (MDRD) Af Amer Est GFR (MDRD) Non-Af BUN/Creatinine Ratio Glucose Lactic Acid Calcium Phosphorus Magnesium Total Bilirubin AST ALT Alkaline Phosphatase Troponin I 3.660 H* Total Protein Albumin Globulin Albumin/Globulin Ratio Procalcitonin Urine Color Urine Clarity Urine pH Ur Specific [place] Urine Protein Urine Glucose (UA) Urine Ketones Urine Occult Blood Urine Nitrite Urine Bilirubin Urine Urobilinogen Ur Leukocyte Esterase Urine RBC Urine WBC Ur Squamous Epith Cells Urine Bacteria Urine Mucus COVID-19 (PILLO) - Other Studies Radiology: [] reviewed Other Studies: [] Route of nutrition/ use of supplements: [] Nutritional Intake: [] IV Site: [] Pena Catheter: [] - Physical Exam General: No apparent distress HEENT: Atraumatic, PERRLA, EOMI Neck: Supple, No Nodes Lungs: Diminished Cardiovascular: Regular rate, Regular Rhythm Abdomen: Soft, Non Tender, Non-Distended Extremities: Edema Skin: No rashes IV Site: Peripheral, without redness Musculoskeletal: No Tenderness to Palpation of Joints or Extremities - Assessment/Plan Antibiotics: [] Assessment/Plan: [] Active and Suspected Problems (Last Reviewed 01/06/20 @ 01:[address] Leon Armas MD) COVID-19 (Acute) Pneumonia due to 2019 novel coronavirus (Acute) Fever, high PCT. Cxs pending. Will check ABO, MRSA screen, and sputum cx. May benefit from convalescent plasma if family is able to consent. Cont dex. Cont meropenem for now, will stop vanc. Will follow, thank you, d/w Dr. King
--- NOTE | 2020-01-06 15:45 | PCM.PN.BLA ---
Progress Note Call by a nurse for a c/s for dialysis catheter. However, per notes it doesn't sound like the patient had wanted dialysis due to poor quality of life prior to admission for unresponsive/+COVID and is currently intubated--it is his spouse that is interested. D/w Dr. King and he thought he could extubate pt tomorrow; will plan to d/w patient tomorrow if he would want dialysis, will see pt in AM. If he would want dialysis would plan to place a temporary dialysis catheter at bedside, due to +COVID and NSTEMI, & will change to tunnelled in future if needed. STROKE Vital Signs/Narrative: Vital Signs Temp Pulse Resp BP BP Pulse Ox 01/06/20 15:00 73 16 99 01/06/20 14:00 98.9 F 70 16 106/46 L 99 01/06/20 13:00 98.7 F 94 19 H 99/52 L 99 01/06/20 12:00 98.6 F 96 21 H 110/62 96
[2020-01-06] MEDS: Senna/Docusate Sodium 1 Tablet 2 TABLET GT (20:22)
[2020-01-06] MEDS: Heparin Injection (Vial) 5,000 UNIT/ML VIAL 5000 UNIT SC (20:22)
[2020-01-07] VITALS (33 sets, daily range): BP systolic 91–156; BP diastolic 50–107; PULSE 70–125; RESP 13–33; TEMP 36.8–38.5; O2SAT 92–100
[2020-01-07] MEDS: 0.9% Saline Lock 10 ML Syringe IV (03:04)
[2020-01-07 04:05] LABS: ALB/GLOB Ratio 0.8 RATIO (0.9-2.4); AST(SGOT) 43 U/L (15-37); Alanine Aminotransfer ALT/SGPT 83 U/L (16-61); Albumin, Serum 2.4 g/dL (3.2-5.0); Alkaline Phosphatase 93 U/L (45-117); Anion Gap 13 (5-15); BUN 111 mg/dL (7-18); BUN/Creat Ratio 22.7 RATIO (10-20); Calcium,Total 7.9 mg/dL (8.5-10.1); Chloride 101 mmol/L (98-107); EST Glomerular Filtration Rate 12 mL/min (>60); Est Glom Filt Rate - Afr Amer 15 mL/min (>60); Estimated Creatinine Clearance 11.79 ml/min; Globulin 3.1 g/dL (2.2-4.2); Glucose 319 mg/dL (74-106); Potassium 4.5 mmol/L (3.5-5.1); Protein, Total 5.5 g/dL (6.4-8.2); Sodium Level 135 mmol/L (136-145)
[2020-01-07 06:26] LABS: Allen Test Positive; Base Excess -5 mmol/L (-2 to +2); Bicarbonate 20.4 mmol/L (22-26); Blood Gas Specimen Type ART; FI02 30; Mode CPAP/PS; O2 Delivery Device Adult Vent; PEEP 5; PO2 103 mmHG (75-100); PS 5; SITE L Radial; SO2 98 % (95-99); Total Carbon Dioxide 21 mmol/L; pCO2 34.3 mmHg (35-45); pH 7.38 (7.35-7.45)
[2020-01-07] MEDS: Lactated Ringers 1,000 ML 100 ML IV (06:53)
--- NOTE | 2020-01-07 08:11 | PCM.PN.INT ---
Subjective: Patient did well overnight. No acute issues were reported. Patient still not interacting consistently, but appears to be frustrated with care more than not attentive. General: Alert, No apparent distress, Non-Cooperative, - - No respiratory distress on spontaneous breathing trial HEENT: Atraumatic, PERRLA, EOMI, Normocephalic, - - No scleral icterus or injection noted Oral: Moist Mucosa, No Gingival or Mucosal Lesions/ Ulcerations Neck: Supple, No JVD, No Nodes, Trachea Midline Lungs: No rhonchi, No wheeze, No rales, Diminished Cardiovascular: Regular rate, Regular Rhythm, Normal S1, Normal S2, No murmurs, No rub noted, No Gallop Abdomen: Bowel Sounds Present, Soft, Non Tender, Non-Distended Extremities: No clubbing, No cyanosis, Edema Skin: - - No change compared to previous Musculoskeletal: No Tenderness to Palpation of Joints or Extremities Lymphatic: No Cervical, Supraclavicular, or Inguinal Adenopathy Neurological: Cranial nerves II-XII grossly intact, Neuro grossly intact, Motor Exam 5/5 strength throughout Psych/Mental Status: Flat Affect, Restless Vital Signs Temp Pulse Resp BP Pulse Ox 36.8 C 71 23 H 125/73 H 100 01/07/20 04:00 01/07/20 07:00 01/07/20 07:00 01/07/20 07:00 01/07/20 07:00 Oxygen Delivery Method Mechanical Ventilator Weight: 82.6 kg Body Mass Index (BMI) 25.6 Intake and Output for Last 24 Hours 01/05/20 01/06/20 01/07/20 23:59 23:59 23:59 Intake Total 516.23 / 516.23 3237.20 / 3242.20 1177.92 / 1177.92 Output Total 940 / 940 250 / 250 Balance 516.23 / 516.23 2297.20 / 2302.20 927.92 / 927.92 Labs (Last 48 Hours) 01/05/20 01/05/20 01/05/20 19:00 19:00 19:00 WBC 6.3 RBC 4.39 L Hgb 12.0 L Hct 40.7 MCV 92.7 MCH 27.3 MCHC 29.5 L RDW Std Deviation 54.6 H RDW Coeff of Iam 16.0 H Plt Count 202 MPV 12.0 Immature Gran % (Auto) 2.100 H Neut % (Auto) 80.1 H Lymph % (Auto) 5.4 L [place] % (Auto) 12.2 H Eos % (Auto) 0.0 Baso % (Auto) 0.2 Absolute Neuts (auto) 5.1 Absolute Lymphs (auto) 0.34 L Total Counted Neutrophils % (Manual) Band Neutrophils % Lymphocytes % (Manual) Monocytes % (Manual) Basophils % (Manual) Metamyelocytes % Nucleated RBC % 0.3 Nucleated RBCs/100 WBC Differential Comment COMMENT Diff Path Review Toxic Granulation Toxic Vacuolation Platelet Estimate ADEQUATE RBC Morphology Polychromasia RARE Anisocytosis 1+ Ovalocytes 1+ Crenated Cell RARE PT 17.0 H INR 1.4 APTT 40.1 H Specimen Type Sample Site pH Bicarbonate Actual Total CO2 Base Excess O2 Saturation O2 % ABG pCO2 ABG pO2 Daniel Test Respiration Rate O2 Delivery Device Vent Mode Tidal Volume POC PEEP POC Pressure Suppt Sodium 141 Potassium 5.1 Chloride 110 H Carbon Dioxide 22.0 Anion Gap 9 BUN 107 H* Creatinine 5.42 H Estim Creat Clear Calc 11.00 Est GFR (MDRD) Af Amer 13 L Est GFR (MDRD) Non-Af 11 L BUN/Creatinine Ratio 19.7 Glucose 161 H Lactic Acid Calcium 9.3 Phosphorus Magnesium Total Bilirubin 1.20 H AST 137 H ALT 139 H Alkaline Phosphatase 147 H Troponin I 3.580 H* Total Protein 6.9 Albumin 3.4 Globulin 3.5 Albumin/Globulin Ratio 1.0 Procalcitonin Urine Color Urine Clarity Urine pH Ur Specific [place] Urine Protein Urine Glucose (UA) Urine Ketones Urine Occult Blood Urine Nitrite Urine Bilirubin Urine Urobilinogen Ur Leukocyte Esterase Urine RBC Urine WBC Ur Squamous Epith Cells Urine Bacteria Urine Mucus COVID-19 (PILLO) Blood Type 01/05/20 01/05/20 01/05/20 19:00 20:05 20:27 WBC RBC Hgb Hct MCV MCH MCHC RDW Std Deviation RDW Coeff of Iam Plt Count MPV Immature Gran % (Auto) Neut % (Auto) Lymph % (Auto) [place] % (Auto) Eos % (Auto) Baso % (Auto) Absolute Neuts (auto) Absolute Lymphs (auto) Total Counted Neutrophils % (Manual) Band Neutrophils % Lymphocytes % (Manual) Monocytes % (Manual) Basophils % (Manual) Metamyelocytes % Nucleated RBC % Nucleated RBCs/100 WBC Differential Comment Diff Path Review Toxic Granulation Toxic Vacuolation Platelet Estimate RBC Morphology Polychromasia Anisocytosis Ovalocytes Crenated Cell PT INR APTT Specimen Type ART Sample Site L Radial pH 7.26 L Bicarbonate Actual 19.4 L Total CO2 21 Base Excess -8 L O2 Saturation 95 O2 % 30 ABG pCO2 43.1 ABG pO2 84 Daniel Test Positive Respiration Rate 14 O2 Delivery Device Adult Vent Vent Mode AC Tidal Volume 450 POC PEEP 5 POC Pressure Suppt Sodium Potassium Chloride Carbon Dioxide Anion Gap BUN Creatinine Estim Creat Clear Calc Est GFR (MDRD) Af Amer Est GFR (MDRD) Non-Af BUN/Creatinine Ratio Glucose Lactic Acid 1.4 Calcium Phosphorus Magnesium Total Bilirubin AST ALT Alkaline Phosphatase Troponin I Total Protein Albumin Globulin Albumin/Globulin Ratio Procalcitonin Urine Color Yellow Urine Clarity Sl. Cloudy Urine pH 5.0 Ur Specific [place] 1.020 Urine Protein 100 H Urine Glucose (UA) Normal Urine Ketones Negative Urine Occult Blood 150 H Urine Nitrite Negative Urine Bilirubin Negative Urine Urobilinogen Normal Ur Leukocyte Esterase Negative Urine RBC 10-25 SEEN Urine WBC 0 SEEN Ur Squamous Epith Cells 0-5 SEEN Urine Bacteria 0 SEEN Urine Mucus 0 SEEN COVID-19 (PILLO) Blood Type 01/05/20 01/06/20 01/06/20 20:37 01:00 01:00 WBC RBC Hgb Hct MCV MCH MCHC RDW Std Deviation RDW Coeff of Iam Plt Count MPV Immature Gran % (Auto) Neut % (Auto) Lymph % (Auto) [place] % (Auto) Eos % (Auto) Baso % (Auto) Absolute Neuts (auto) Absolute Lymphs (auto) Total Counted Neutrophils % (Manual) Band Neutrophils % Lymphocytes % (Manual) Monocytes % (Manual) Basophils % (Manual) Metamyelocytes % Nucleated RBC % Nucleated RBCs/100 WBC Differential Comment Diff Path Review Toxic Granulation Toxic Vacuolation Platelet Estimate RBC Morphology Polychromasia Anisocytosis Ovalocytes Crenated Cell PT INR APTT Specimen Type Sample Site pH Bicarbonate Actual Total CO2 Base Excess O2 Saturation O2 % ABG pCO2 ABG pO2 Daniel Test Respiration Rate O2 Delivery Device Vent Mode Tidal Volume POC PEEP POC Pressure Suppt Sodium Potassium Chloride Carbon Dioxide Anion Gap BUN Creatinine Estim Creat Clear Calc Est GFR (MDRD) Af Amer Est GFR (MDRD) Non-Af BUN/Creatinine Ratio Glucose Lactic Acid Calcium Phosphorus Magnesium Total Bilirubin AST ALT Alkaline Phosphatase Troponin I 3.250 H* Total Protein Albumin Globulin Albumin/Globulin Ratio Procalcitonin 11.53 H Urine Color Urine Clarity Urine pH Ur Specific [place] Urine Protein Urine Glucose (UA) Urine Ketones Urine Occult Blood Urine Nitrite Urine Bilirubin Urine Urobilinogen Ur Leukocyte Esterase Urine RBC Urine WBC Ur Squamous Epith Cells Urine Bacteria Urine Mucus COVID-19 (PILLO) Detected Blood Type 01/06/20 01/06/20 01/06/20 03:30 03:30 03:30 WBC 8.8 RBC 3.82 L Hgb 10.3 L Hct 35.7 L MCV 93.5 MCH 27.0 MCHC 28.9 L RDW Std Deviation 55.3 H RDW Coeff of Iam 16.0 H Plt Count 268 MPV 11.2 Immature Gran % (Auto) Neut % (Auto) Not Reportable Lymph % (Auto) [place] % (Auto) Eos % (Auto) Baso % (Auto) Absolute Neuts (auto) 8.1 H Absolute Lymphs (auto) 0.08 L Total Counted 100 Neutrophils % (Manual) 88 H Band Neutrophils % 4 Lymphocytes % (Manual) 1 L Monocytes % (Manual) 4 Basophils % (Manual) 1 Metamyelocytes % 2 H Nucleated RBC % Nucleated RBCs/100 WBC 2 Differential Comment Diff Path Review Reviewed Toxic Granulation 2+ Toxic Vacuolation 2+ Platelet Estimate ADEQUATE RBC Morphology NORM C+C Polychromasia Anisocytosis Ovalocytes Crenated Cell PT INR APTT Specimen Type Sample Site pH Bicarbonate Actual Total CO2 Base Excess O2 Saturation O2 % ABG pCO2 ABG pO2 Daniel Test Respiration Rate O2 Delivery Device Vent Mode Tidal Volume POC PEEP POC Pressure Suppt Sodium 139 Potassium 4.9 Chloride 105 Carbon Dioxide 22.0 Anion Gap 12 BUN 104 H* Creatinine 5.33 H Estim Creat Clear Calc 12.05 Est GFR (MDRD) Af Amer 13 L Est GFR (MDRD) Non-Af 11 L BUN/Creatinine Ratio 19.5 Glucose 187 H Lactic Acid Calcium 8.3 L Phosphorus 6.5 H Magnesium 2.6 Total Bilirubin 1.20 H AST 102 H ALT 113 H Alkaline Phosphatase 123 H Troponin I 3.250 H* Total Protein 5.8 L Albumin 2.8 L Globulin 3.0 Albumin/Globulin Ratio 0.9 Procalcitonin Urine Color Urine Clarity Urine pH Ur Specific [place] Urine Protein Urine Glucose (UA) Urine Ketones Urine Occult Blood Urine Nitrite Urine Bilirubin Urine Urobilinogen Ur Leukocyte Esterase Urine RBC Urine WBC Ur Squamous Epith Cells Urine Bacteria Urine Mucus COVID-19 (PILLO) Blood Type 01/06/20 01/06/20 01/06/20 03:30 05:57 10:20 WBC RBC Hgb Hct MCV MCH MCHC RDW Std Deviation RDW Coeff of Iam Plt Count MPV Immature Gran % (Auto) Neut % (Auto) Lymph % (Auto) [place] % (Auto) Eos % (Auto) Baso % (Auto) Absolute Neuts (auto) Absolute Lymphs (auto) Total Counted Neutrophils % (Manual) Band Neutrophils % Lymphocytes % (Manual) Monocytes % (Manual) Basophils % (Manual) Metamyelocytes % Nucleated RBC % Nucleated RBCs/100 WBC Differential Comment Diff Path Review Toxic Granulation Toxic Vacuolation Platelet Estimate RBC Morphology Polychromasia Anisocytosis Ovalocytes Crenated Cell PT INR APTT 83.1 H 148.8 H* Specimen Type Sample Site pH Bicarbonate Actual Total CO2 Base Excess O2 Saturation O2 % ABG pCO2 ABG pO2 Daniel Test Respiration Rate O2 Delivery Device Vent Mode Tidal Volume POC PEEP POC Pressure Suppt Sodium Potassium Chloride Carbon Dioxide Anion Gap BUN Creatinine Estim Creat Clear Calc Est GFR (MDRD) Af Amer Est GFR (MDRD) Non-Af BUN/Creatinine Ratio Glucose Lactic Acid Calcium Phosphorus Magnesium Total Bilirubin AST ALT Alkaline Phosphatase Troponin I 3.660 H* Total Protein Albumin Globulin Albumin/Globulin Ratio Procalcitonin Urine Color Urine Clarity Urine pH Ur Specific [place] Urine Protein Urine Glucose (UA) Urine Ketones Urine Occult Blood Urine Nitrite Urine Bilirubin Urine Urobilinogen Ur Leukocyte Esterase Urine RBC Urine WBC Ur Squamous Epith Cells Urine Bacteria Urine Mucus COVID-19 (PILLO) Blood Type 01/06/20 01/07/20 01/07/20 15:20 03:00 06:20 WBC RBC Hgb Hct MCV MCH MCHC RDW Std Deviation RDW Coeff of Iam Plt Count MPV Immature Gran % (Auto) Neut % (Auto) Lymph % (Auto) [place] % (Auto) Eos % (Auto) Baso % (Auto) Absolute Neuts (auto) Absolute Lymphs (auto) Total Counted Neutrophils % (Manual) Band Neutrophils % Lymphocytes % (Manual) Monocytes % (Manual) Basophils % (Manual) Metamyelocytes % Nucleated RBC % Nucleated RBCs/100 WBC Differential Comment Diff Path Review Toxic Granulation Toxic Vacuolation Platelet Estimate RBC Morphology Polychromasia Anisocytosis Ovalocytes Crenated Cell PT INR APTT Specimen Type ART Sample Site L Radial pH 7.38 Bicarbonate Actual 20.4 L Total CO2 21 Base Excess -5 L O2 Saturation 98 O2 % 30 ABG pCO2 34.3 L ABG pO2 103 H Daniel Test Positive Respiration Rate O2 Delivery Device Adult Vent Vent Mode CPAP/PS Tidal Volume POC PEEP 5 POC Pressure Suppt 5 Sodium 135 L Potassium 4.5 Chloride 101 Carbon Dioxide 21.0 Anion Gap 13 BUN 111 H* Creatinine 4.90 H Estim Creat Clear Calc 11.79 Est GFR (MDRD) Af Amer 15 L Est GFR (MDRD) Non-Af 12 L BUN/Creatinine Ratio 22.7 H Glucose 319 H Lactic Acid Calcium 7.9 L Phosphorus Magnesium Total Bilirubin 1.00 AST 43 H ALT 83 H Alkaline Phosphatase 93 Troponin I Total Protein 5.5 L Albumin 2.4 L Globulin 3.1 Albumin/Globulin Ratio 0.8 L Procalcitonin Urine Color Urine Clarity Urine pH Ur Specific [place] Urine Protein Urine Glucose (UA) Urine Ketones Urine Occult Blood Urine Nitrite Urine Bilirubin Urine Urobilinogen Ur Leukocyte Esterase Urine RBC Urine WBC Ur Squamous Epith Cells Urine Bacteria Urine Mucus COVID-19 (PILLO) Blood Type O POSITIVE Microbiology 01/05/20 20:05 Urine Catheter - Catheter Urine Culture - Preliminary Culture exhibits no growth. 01/06/20 01:00 Urine Catheter - Pena Legionella Antigen - Final 01/06/20 01:00 Urine Catheter - Pena Streptococcus pneumoniae Antigen (M - Final 01/05/20 20:37 Mucosa - Nasopharyngeal Respiratory Panel (PCR) - Final Medical Necessity - Tobacco Use Smoking Status: Unknown if ever smoked Assessment/Plan All Active Problems (Last Reviewed 01/06/20 @ 01:[address] Leon Armas MD) COVID-19 (Acute) Pneumonia due to 2019 novel coronavirus (Acute) RECOMMENDATIONS: 1. Transition from bicarbonate drip to LR 2. Continue empiric antibiotics given elevated procalcitonin pending ID consult 3. Discussed with patient about goals of therapy including dialysis 4. Defer to hospitalist on involvement of cardiology 5. Consult Dr. Rivera. Possibly arrange for tunneled hemodialysis line 6. Bedside swallow evaluation prior to initiation of p.o. diet IMPRESSIONS: 1. Acute hypoxic respiratory failure secondary to COVID-19 pneumonia Probable etiology of decreased movement and pressure injury secondary to COVID-19 with associated weakness. Family is not very clear on patient's last known well. Given renal failure, remdesivir is not an option. Okay to continue with anticoagulation and steroids from my perspective. Patient does have an elevated pro calcitonin, so superinfection would be a consideration. Infectious disease has been consulted. 2. Acute on chronic kidney disease stage IV Patient likely has an element of worsening secondary to hypoxia and possible rhabdomyolysis. Nephrology has been consulted. Await their input. Patient presented with significant metabolic acidosis, but this appears to be improved. We will transition to lactated Ringer's and continue to monitor renal function. 3. Non-ST elevation LA/chronic combined congestive heart failure Patient has had a consistently elevated troponin. Patient reportedly has significant congestive heart failure at baseline. This cannot be confirmed independently. Defer to hospitalist on whether cardiology should be involved. Reasonable to continue with anticoagulation for now. 4. Nonanion gap metabolic acidosis secondary to #2 Resolved. Patient placed on a bicarbonate drip. Patient was hypoxic at presentation, but lactate was relatively normal. Patient was already being followed for chronic kidney disease stage IV. Nephrology has been consulted. Defer to surgery/nephrology on discussion with patient about acceptability of long-term hemodialysis 5. Possible rhabdomyolysis secondary to pressure injury Nursing to evaluate posterior and intervene for pressure injury. Does not appear to be infected at this time. Patient does not have a CPK at this time. 6. Advanced age/elevated liver enzymes/poor historian-history Complicates care, management, recovery and prognosis. Will need to watch liver function studies closely if patient is deemed appropriate for remdesivir by infectious disease TIME: 32 minutes critical care time spent addressing patient's acute hypoxic respiratory failure, kidney disease and its complications, NSTEMI, review of all data and collaboration with care team (6 AM to 7 AM) [id number] Critical care first hour
--- NOTE | 2020-01-07 10:20 | CON.PCM_ITS ---
Reason for Consult Date of Consultation: 01/07/20 History of Present Illness: The patient is a 84 year old M admitted to the hospital due to weakness and found to be Covid positive. Patient does have history of chronic kidney disease which is currently acute on chronic and creatinine is 5.4. Patient is currently intubated and sedated in the ICU. Per nephrology notes patient discussions previously about dialysis was that he did not want it because he was so weak and he had a poor quality of life. However it appears the spouse would like him to try dialysis. Patient was able to be extubated this morning. When asked if patient would want dialysis he stated I probably have to. Past Medical History Past Medical History (Chronic Problems): Chronic Problems (Last Updated 01/09/20 @ 06:35 by Oxana Hightower) Chronic combined systolic and diastolic CHF (congestive heart failure) (Chronic) Stroke (Chronic 02/15/19) Atherosclerosis of coronary artery bypass graft without angina pectoris (Chronic) PCI-MARIUM Prox OM1 w/ 2.5 x 12 mm Elunir, MARIUM-Prox LCx w/ 2.5 x 12 mm Elunir UVN-JGO-Ldvq LAD w/ 2.5 x 8 mm Resolute Integrity 07/22/18 MARIUM-Prox OM1 w/ 2.75 x 12 mm Xience Alpine Stent 04/15/2014 CFJ-AFR-Ltpu LAD w/ 3.5 x 12 mm Xience Xpedition and MARIUM-Prox LCx w/ 3.5 x 8 mm Xience Xpedition 08/11/2013 YVK-SWC-Mdly Main w/ 3.0 x 16 mm Taxus Stent and MARIUM-Prox OM1 w/ 2.5 x 16 mm Taxus 11/20/2005; CABG x 2: RUSH-LAD, SVG-LCx 06/17/05 H/O coronary artery bypass surgery (Chronic 06/17/05) CABG x 2: RUSH-LAD, SVG-LCx 06/17/05 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) Essential (primary) hypertension (Chronic) History of coronary artery stent placement (Chronic 07/22/18) PCI-MARIUM Prox OM1 w/ 2.5 x 12 mm Elunir, MAIRUM-Prox LCx w/ 2.5 x 12 mm Elunir VYA-TTP-Zltw LAD w/ 2.5 x 8 mm Resolute Integrity 07/22/18 MARIUM-Prox OM1 w/ 2.75 x 12 mm Xience Alpine Stent 04/15/2014 HYS-NZI-Jkfu LAD w/ 3.5 x 12 mm Xience Xpedition and MARIUM-Prox LCx w/ 3.5 x 8 mm Xience Xpedition 08/11/2013 TMJ-KKX-Uhep Main w/ 3.0 x 16 mm Taxus Stent and MARIUM-Prox OM1 w/ 2.5 x 16 mm Taxus 11/20/2005 History of ventricular tachycardia (Chronic) Chronic renal failure, stage 4 (severe) (Chronic) Ischemic cardiomyopathy (Chronic) Right bundle branch block (Chronic) Complete AV block, 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) HLD (hyperlipidemia) (Chronic) Medical History: Medical History (Last Updated 01/09/20 @ 06:35 by Oxana Hightower) Chronic combined systolic and diastolic CHF (congestive heart failure) (Chronic) I50.42 Elevated troponin (Acute) Onset Date: 01/06/20 R79.89 02/2019 Stroke (Chronic) Onset Date: 02/15/19 I63.9 Atherosclerosis of coronary artery bypass graft without angina pectoris (Chronic) I25.810 PCI-MARIUM Prox OM1 w/ 2.5 x 12 mm Elunir, MARIUM-Prox LCx w/ 2.5 x 12 mm Elunir DDU-LOB-Dwvh LAD w/ 2.5 x 8 mm Resolute Integrity 07/22/18 MARIUM-Prox OM1 w/ 2.75 x 12 mm Xience Alpine Stent 04/15/2014 ULL-VCQ-Hsvj LAD w/ 3.5 x 12 mm Xience Xpedition and MARIUM-Prox LCx w/ 3.5 x 8 mm Xience Xpedition 08/11/2013 LDA-SLW-Unhl Main w/ 3.0 x 16 mm Taxus Stent and MARIUM-Prox OM1 w/ 2.5 x 16 mm Taxus 11/20/2005; CABG x 2: RUSH-LAD, SVG-LCx 06/17/05 Essential (primary) hypertension (Chronic) I10 History of ventricular tachycardia (Chronic) Z86.79 Chronic renal failure, stage 4 (severe) (Chronic) N18.4 Ischemic cardiomyopathy (Chronic) I25.5 Right bundle branch block (Chronic) I45.10 Complete AV block, acquired (Chronic) I44.2 Old myocardial infarction (Chronic) I25.2 HLD (hyperlipidemia) (Chronic) E78.5 BPH (benign prostatic hyperplasia) N40.0 Diaphragmatic hernia K44.9 GERD (gastroesophageal reflux disease) K21.9 History of nephrolithiasis Z87.442 Radiculitis of leg M54.10 Type 2 diabetes mellitus E11.9 Coronary atherosclerosis of [place] coronary artery (Inactive) I25.10 NSTEMI (non-ST elevated myocardial infarction) (Inactive) I21.4 Allergies Penicillins Allergy (Verified 01/05/20 18:53) Anaphylaxis amlodipine [From Norvasc] Adverse Reaction (Intermediate, Verified 01/05/20 18:53) dizzy ezetimibe [From Zetia] Adverse Reaction (Verified 01/05/20 18:53) mylagias rosuvastatin calcium [From Crestor] Adverse Reaction (Verified 01/05/20 18:53) legs hurt Zhfsttb-Lmu-Vtl Reductase Inhibitor Adverse Reaction (Verified 01/05/20 18:53) body aches Home Medications: Ambulatory Orders Medication Instructions Recorded Finasteride [Proscar] 5 mg PO DAILY 02/14/19 Folic Acid 5 mg PO DAILY 02/14/19 Ubidecarenone [Coq-10] 100 mg PO DAILY 02/14/19 l Gasseri/B Bifidum/B Longum 2 cap PO QHS 02/14/19 [Outline App Health Capsule] colestipol 1 gram tablet 1 g PO DAILY #90 tab 06/03/19 nitroglycerin 0.4 mg sublingual 0.4 mg SUBLINGUAL Q5-15M PRN #25 07/25/19 tablet tab carvedilol 3.125 mg tablet 3.125 mg PO BID #180 tab 10/11/19 clopidogrel 75 mg tablet 75 mg PO DAILY #90 tab 11/07/19 furosemide 40 mg tablet 40 mg PO DAILY tab 11/07/19 trazodone 50 mg tablet 50 mg PO DAILY 11/07/19 isosorbide mononitrate 60 mg 60 mg PO DAILY #90 tab 11/22/19 tablet,extended release 24 hr Surgical History: Surgical History (Last Reviewed 01/06/20 @ 01:[address] Leon Armas MD) H/O coronary artery bypass surgery (Chronic) Onset Date: 06/17/05 Z95.1 CABG x 2: RUSH-LAD, SVG-LCx 06/17/05 Presence of permanent cardiac pacemaker (Chronic) Onset Date: 05/2014 Z95.0 History of coronary artery stent placement (Chronic) Onset Date: 07/22/18 Z95.5 PCI-MARIUM Prox OM1 w/ 2.5 x 12 mm Elunir, MARIUM-Prox LCx w/ 2.5 x 12 mm Elunir HEG-GZX-Csus LAD w/ 2.5 x 8 mm Resolute Integrity 07/22/18 MARIUM-Prox OM1 w/ 2.75 x 12 mm Xience Alpine Stent 04/15/2014 POF-HVB-Dxzq LAD w/ 3.5 x 12 mm Xience Xpedition and MARIUM-Prox LCx w/ 3.5 x 8 mm Xience Xpedition 08/11/2013 GBS-RPE-Enaa Main w/ 3.0 x 16 mm Taxus Stent and MARIUM-Prox OM1 w/ 2.5 x 16 mm Taxus 11/20/2005 History of appendectomy Z90.49 History of back surgery Z98.890 History of left heart catheterization Onset Date: 08/02/19 Z98.890 History of tonsillectomy and adenoidectomy Z98.890 Surgical History: appendectomy, coronary bypass surgery - s/p stents als, pacemaker implantation, tonsillectomy, - - h/o back surgery Psychiatric History: No pertinent psych hx Smoking Status: Unknown if ever smoked - *Family History Paternal Family History: Family History (Last Reviewed 01/06/20 @ 01:[address] Leon Armas MD) Father Myocardial infarction Hypertension Heart disease Mother Hypertension Emphysema of lung FH: brain aneurysm Daughter Afib History Items: Heart Disease - PR, Hypertension Maternal Family History: Family History (Last Reviewed 01/06/20 @ 01:[address] Leon Armas MD) Father Myocardial infarction Hypertension Heart disease Mother Hypertension Emphysema of lung FH: brain aneurysm Daughter Afib History Items: COPD, Hypertension, - - brain aneurysm Review of Systems Constitutional: Denies: Anorexia HEENT: Reports: Difficulty Swallowing Cardiovascular: Denies: Chest Pain Respiratory: Reports: Shortness of Breath Gastrointestinal: Denies: Abdominal Pain Hematologic/ Lymphatic: Denies: Easy Bleeding Patient Problems: Active and Suspected Problems (Last Updated 01/09/20 @ 06:35 by Oxana Hightower) COVID-19 (Acute) Pneumonia due to 2019 novel coronavirus (Acute) - Physical Exam Vitals/I&O's: Vital Signs Temp Pulse Resp BP Pulse Ox 98.9 F 102 H 23 H 119/70 99 01/07/20 09:00 01/07/20 09:00 01/07/20 09:00 01/07/20 09:00 01/07/20 09:00 Oxygen Flow Rate (L/min) 3 Oxygen Delivery Method Nasal Cannula Weight: 182 lb 1.629 oz Body Mass Index (BMI) 25.6 Intake and Output for Last 24 Hours 01/05/20 01/06/20 01/07/20 23:59 23:59 23:59 Intake Total 516.23 / 516.23 3237.20 / 3242.20 1177.92 / 1177.92 Output Total 940 / 940 250 / 250 Balance 516.23 / 516.23 2297.20 / 2302.20 927.92 / 927.92 General: Alert, Cooperative, No apparent distress Cardiovascular: Regular rate Abdomen: Soft, Non Tender, Non-Distended Extremities: No clubbing, No cyanosis Neurological: Cranial nerves II-XII grossly intact Psych/Mental Status: Flat Affect Microbiology Past 72 Hours 01/05/20 20:05 Urine Catheter - Catheter Urine Culture - Preliminary Culture exhibits no growth. 01/06/20 01:00 Urine Catheter - Pena Legionella Antigen - Final 01/06/20 01:00 Urine Catheter - Pena Streptococcus pneumoniae Antigen (M - Final 01/05/20 20:37 Mucosa - Nasopharyngeal Respiratory Panel (PCR) - Final Laboratory Results 01/06/20 03:30: Diff Path Review Reviewed 01/06/20 10:20: APTT 148.8 H* 01/06/20 15:20: Blood Type O POSITIVE 01/07/20 03:00: Sodium 135 L, Potassium 4.5, Chloride 101, Carbon Dioxide 21.0, Anion Gap 13, BUN 111 H*, Creatinine 4.90 H, Estim Creat Clear Calc 11.79, Est GFR (MDRD) Af Amer 15 L, Est GFR (MDRD) Non-Af 12 L, BUN/Creatinine Ratio 22.7 H , Glucose 319 H, Calcium 7.9 L, Total Bilirubin 1.00, AST 43 H, ALT 83 H, Alkaline Phosphatase 93, Total Protein 5.5 L, Albumin 2.4 L, Globulin 3.1, Albumin/Globulin Ratio 0.8 L 01/07/20 06:20: Specimen Type ART, Sample Site L Radial, pH 7.38, Bicarbonate Actual 20.4 L, Total CO2 21, Base Excess -5 L, O2 Saturation 98, O2 % 30, ABG pCO2 34.3 L, ABG pO2 103 H, Daniel Test Positive, O2 Delivery Device Adult Vent, Vent Mode CPAP/PS, POC PEEP 5, POC Pressure Suppt 5 Current Medications Acetaminophen (Acetaminophen 325 Mg Tablet) 650 mg PO Q6H PRN PRN PRN Reason: Pain Score 1-10/Temp > 100.7 F Last Admin: 01/06/20 02:23 Dose: 650 mg Documented by: Aspirin (Aspirin 81 Mg Tab.Chew) 81 mg PO DAILY@0800 [facility] Dexamethasone Sodium Phosphate (Dexamethasone 4 Mg/Ml Vial) 6 mg IV Q24 [facility] Last Admin: 01/06/20 10:18 Dose: 6 mg Documented by: Famotidine (Famotidine 20 Mg Tablet) 20 mg PO DAILY [facility] Heparin Sodium (Porcine) (Heparin Injection (Vial) 5,000 Unit/Ml Vial) 5,000 unit SC Q12 [facility] Last Admin: 01/06/20 20:22 Dose: 5,000 unit Documented by: Sodium Chloride () 250 mls @ 15 mls/hr IV .[id number] PRN PRN Reason: Saline Flush Sodium Chloride () 250 mls @ 15 mls/hr IV .[id number] PRN PRN Reason: Additional IVPB Infusion Meropenem 500 mg/ Sodium (Chloride) 60 mls @ 100 mls/hr IV Q12 [facility] Last Infusion: 01/06/20 21:21 Dose: Infused Documented by: Lactated Ringer's () 1,000 mls @ 100 mls/hr IV .Q10H [facility] Last Admin: 01/07/20 06:53 Dose: 100 mls/hr Documented by: Insulin Glargine (Insulin Glargine 100 Units/Ml Pen) 10 units SC BID [facility] Insulin Human Lispro (Insulin Lispro 100 Unit/Ml Insuln.Pen) 0 unit SC Q6@0400,1000,1600,2200 [facility]; Protocol L-Arginine/L-Glutamine/Calcium HMB (Glenn (Unflavored) Packet) 1 packet PO BIDCM [facility] Ondansetron HCl (Ondansetron 4 Mg/2 Ml Vial) 4 mg IV Q8H PRN PRN PRN Reason: NAUSEA/VOMITING Senna/Docusate Sodium (Senna/Docusate Sodium 1 Tablet) 2 tablet PO BID [facility] Sodium Chloride (0.9% Saline Lock 10 Ml Syringe) 10 - 40 ml IV UD PRN PRN Reason: SALINE FLUSH Last Admin: 01/07/20 03:04 Dose: 20 ml Documented by: Assessment/Plan All Active Problems (Last Updated 01/09/20 @ 06:35 by Oxana Hightower) Non-ST elevated myocardial infarction (non-STEMI) (Acute 01/06/20) COVID-19 (Acute) Pneumonia due to 2019 novel coronavirus (Acute) Elevated troponin (Acute 01/06/20) 84-year-old male with acute on chronic kidney disease request for dialysis catheter, Covid positive Pt is agreeable for placement of dialysis catheter for dialysis due to acute on CKD, risk and benefits were d/w pt and he was agreeable. Will plan to change to tunnel catheter next week prior to D/C Jannet Castellanos M.D. Pager: [phone] [facility] [address] [place] [address], [facility], [address] [place] [address] Office: [phone] Inpatient E&M: 31705 Init Hosp L2
--- NOTE | 2020-01-07 10:50 | NURSING ---
Dr. Castellanos at bedside for HD catheter insertion
--- NOTE | 2020-01-07 11:13 | RAD_ITS ---
STUDY: X-RAY CHEST REASON FOR EXAM: Male, 84 years old. temporary HD catheter placement TECHNIQUE: Single AP portable view of the chest. COMPARISON: 04/06/2019 FINDINGS: Interval removal of endotracheal tube and nasogastric tube. Interval placement of right internal jugular introducer with tip the catheter overlying the junction of the right atrium and screw vena cava with no pneumothorax. Left subclavian dual-lead pacemaker which is unchanged. Status post median sternotomy. The lungs are clear and expanded. No change in tiny left pleural effusion. There is moderate cardiac enlargement. Normal mediastinum and jose antonio. Normal visualized pulmonary arteries. Normal visualized aortic arch and descending thoracic aorta. Normal visualized thoracic spine. Normal visualized ribs, clavicles, and shoulders. There is no demonstrated abnormality of the visualized soft tissue structures of the upper abdomen. RAD/CXR for Line Placement IMPRESSION: 1. Interval removal of endotracheal tube and nasogastric tube. 2. Interval placement of right internal jugular introducer with tip of the catheter overlying the junction of the right atrium and spur vena cava with no pneumothorax. 3. No change in tiny left pleural effusion. Electronically Signed: Denver Tamayo MD at 12:26 EDT Tel , Service support ,
--- NOTE | 2020-01-07 11:36 | OP.PCM_ITS ---
Report of Operation Date of Procedure: 01/07/20 Pre-Operative Diagnosis: acute on chronic kidney disease, +COVID Post-Operative Diagnosis: same Surgery/Procedure Performed:: RIJ temporary dialysis catheter placement Type of Anesthesia:: Local Estimated Blood Loss (mL): minimal Description of Procedure: After informed consent was given, the patient placed in the supine position. Appropriate time out protocol was followed- Pt was +COVID- appropriate PPE was used including PAPR. The patient's right upper chest and neck were then prepped with a surgical skin preparation and sterile surgical drapes were placed. After proper landmarks were ascertained, the skin overlying the IJ was infiltrated with 1% lidocaine. A needle trocar was then inserted into the right internal jugular vein with ultrasound guidance and there was good aspiration of venous blood. A wire was then threaded into the needle trocar easily without any resistance. Once this was done, then the needle trocar was removed. A small incision was made with an 11 blade knife at the wire entrance site. The dilator x2 with the introducer sheath attached was then placed over the wire into the right internal jugular ve in via the Seldinger technique. Next the Mahurkar Elite catheter was placed (ref [id number] LOT [id number]). Both ports flushed and tami easily. Catheter was also flushed with 1.5 cc of 1-10,000 of heparin. Hemostasis was assured. Catheter was secured with 3-0 nylon sutures. A large OpSite with silver dressing was placed over the catheter site. The patient tolerated the procedure well. Grafts/Implants Used: Mahurkar Elite catheter 12 Fr (ref [id number] LOT [id number]) - Complications none
[2020-01-07] MEDS: dexAMETHasone 4 MG/ML Vial 6 MG IV (12:35)
[2020-01-07] MEDS: Heparin Injection (Vial) 5,000 UNIT/ML VIAL 5000 UNIT SC ×2 (12:35→21:33)
[2020-01-07] MEDS: Heparin 10,000 UNITS/10 ML Vial IV (12:37)
[2020-01-07 13:07] LABS: Partial Thromboplast Time 28.1 Seconds (24.1-36.2)
[2020-01-07 13:12] LABS: Urine Sodium 15 mmol/L (Not Establ.)
--- NOTE | 2020-01-07 13:25 | PCM.PN.HOSP ---
Patient Problems: Active and Suspected Problems (Last Reviewed 01/06/20 @ 01:[address] Leon Armas MD) COVID-19 (Acute) Pneumonia due to 2019 novel coronavirus (Acute) Reason for Visit: COVID 19 Subjective: Extubated today. Tolerating 2 liter NC. Vitals/I&O's: Vital Signs Temp Pulse Resp BP Pulse Ox 37.3 C 70 31 H 102/50 L 100 01/07/20 13:13 01/07/20 13:13 01/07/20 13:13 01/07/20 13:13 01/07/20 13:13 Oxygen Flow Rate (L/min) 2 Oxygen Delivery Method Nasal Cannula Weight: 82.6 kg Body Mass Index (BMI) 25.6 Intake and Output for Last 24 Hours 01/05/20 01/06/20 01/07/20 23:59 23:59 23:59 Intake Total 516.23 / 516.23 3237.20 / 3242.20 1751.25 / 1751.25 Output Total 940 / 940 250 / 250 Balance 516.23 / 516.23 2297.20 / 2302.20 1501.25 / 1501.25 General: No apparent distress, Confused HEENT: Atraumatic, Normocephalic Oral: Moist Mucosa, No Gingival or Mucosal Lesions/ Ulcerations Neck: No Nodes, Thyroid Normal Size and Texture Lungs: Clear to auscultation, Normal air movement, No rhonchi, No wheeze Cardiovascular: Regular rate, Regular Rhythm, Normal S1, Normal S2, No murmurs Abdomen: Bowel Sounds Present, Soft, Non Tender, Non-Distended, No Hepato-splenomegaly Extremities: No edema, No Calf Tenderness Microbiology Past 72 Hours 01/05/20 20:05 Urine Catheter - Catheter Urine Culture - Preliminary Culture exhibits no growth. 01/06/20 01:00 Urine Catheter - Pena Legionella Antigen - Final 01/06/20 01:00 Urine Catheter - Pena Streptococcus pneumoniae Antigen (M - Final 01/05/20 20:37 Mucosa - Nasopharyngeal Respiratory Panel (PCR) - Final Laboratory Results 01/06/20 03:30: Diff Path Review Reviewed 01/06/20 15:20: Blood Type O POSITIVE 01/07/20 03:00: Sodium 135 L, Potassium 4.5, Chloride 101, Carbon Dioxide 21.0, Anion Gap 13, BUN 111 H*, Creatinine 4.90 H, Estim Creat Clear Calc 11.79, Est GFR (MDRD) Af Amer 15 L, Est GFR (MDRD) Non-Af 12 L, BUN/Creatinine Ratio 22.7 H, Glucose 319 H, Calcium 7.9 L, Total Bilirubin 1.00, AST 43 H, ALT 83 H, Alkaline Phosphatase 93, Total Protein 5.5 L, Albumin 2.4 L, Globulin 3.1, Albumin/Globulin Ratio 0.8 L 01/07/20 06:20: Specimen Type ART, Sample Site L Radial, pH 7.38, Bicarbonate Actual 20.4 L, Total CO2 21, Base Excess -5 L, O2 Saturation 98, O2 % 30, ABG pCO2 34.3 L, ABG pO2 103 H, Daniel Test Positive, O2 Delivery Device Adult Vent, Vent Mode CPAP/PS, POC PEEP 5, POC Pressure Suppt 5 01/07/20 12:40: APTT 28.1 01/07/20 12:40: Ur Random Sodium 15, Urine Creatinine 120.00 Current Medications Acetaminophen (Acetaminophen 325 Mg Tablet) 650 mg PO Q6H PRN PRN PRN Reason: Pain Score 1-10/Temp > 100.7 F Last Admin: 01/06/20 02:23 Dose: 650 mg Documented by: Aspirin (Aspirin 81 Mg Tab.Chew) 81 mg PO DAILY@0800 [facility] Last Admin: 01/07/20 12:36 Dose: Not Given Documented by: Dexamethasone Sodium Phosphate (Dexamethasone 4 Mg/Ml Vial) 6 mg IV Q24 [facility] Last Admin: 01/07/20 12:35 Dose: 6 mg Documented by: Famotidine (Famotidine 20 Mg Tablet) 20 mg PO DAILY [facility] Last Admin: 01/07/20 12:36 Dose: Not Given Documented by: Heparin Sodium (Porcine) (Heparin Injection (Vial) 5,000 Unit/Ml Vial) 5,000 unit SC Q12 [facility] Last Admin: 01/07/20 12:35 Dose: 5,000 unit Documented by: Sodium Chloride () 250 mls @ 15 mls/hr IV .[id number] PRN PRN Reason: Saline Flush Sodium Chloride () 250 mls @ 15 mls/hr IV .[id number] PRN PRN Reason: Additional IVPB Infusion Meropenem 500 mg/ Sodium (Chloride) 60 mls @ 100 mls/hr IV Q12 [facility] Last Admin: 01/07/20 12:36 Dose: 100 mls/hr Documented by: Insulin Glargine (Insulin Glargine 100 Units/Ml Pen) 10 units SC BID [facility] Last Admin: 01/07/20 12:36 Dose: 10 units Documented by: Insulin Human Lispro (Insulin Lispro 100 Unit/Ml Insuln.Pen) 0 unit SC Q6@0400,1000,1600,2200 [facility]; Protocol Last Admin: 01/07/20 12:35 Dose: Not Given Documented by: L-Arginine/L-Glutamine/Calcium HMB (Glenn (Unflavored) Packet) [facility] Ondansetron HCl (Ondansetron 4 Mg/2 Ml Vial) 4 mg IV Q8H PRN PRN PRN Reason: NAUSEA/VOMITING Senna/Docusate Sodium (Senna/Docusate Sodium 1 Tablet) 2 tablet PO BID [facility] Last Admin: 01/07/20 12:36 Dose: Not Given Documented by: Sodium Chloride (0.9% Saline Lock 10 Ml Syringe) 10 - 40 ml IV UD PRN PRN Reason: SALINE FLUSH Last Admin: 01/07/20 03:04 Dose: 20 ml Documented by: STROKE Vital Signs/Narrative: Vital Signs Temp Pulse Resp BP BP Pulse Ox 01/07/20 13:13 37.3 C 70 31 H 102/50 L 100 01/07/20 12:00 37.2 C 71 20 H 108/65 100 01/07/20 11:00 37.1 C 100 24 H 101/62 100 01/07/20 10:50 100 01/07/20 10:00 37.2 C 102 H 24 H 117/69 99 Medical Necessity - Tobacco Use Smoking Status: Unknown if ever smoked Assessment/Plan All Active Problems (Last Reviewed 01/06/20 @ 01:[address] Leon Armas MD) COVID-19 (Acute) Pneumonia due to 2019 novel coronavirus (Acute) 1. acute hypoxic respiratory failure: 2/2 COVID pneumonia. Extubated 01/06. So far tolerating NC. 2. acute COVID-19 pneumonia. On dexamethasone. Not candidate for remdesivir. On meropenem 3. NSTEMI, suspect type II given above, but also skewed given CKD. Consider echocardiogram. On ASA. Cath from July showed patent vessels. Med mgmt. 4. HFrEF: EF 20% from echo from 07/2018 and cardiac cath from 07/2019 5. LUCIA: baseline around 2.5. Non-oliguric. Dialysis catheter placed 01/06. Nephrology on consult. DW Dr. Rivera, she discussed with and she wishes to him to have HD. 6. VTE prophylaxis: SQ heparin. 7. Nutrition: speech to clear post extubation. Prognosis: guarded. Inpatient E&M: 96422 Subs Hosp L2
--- NOTE | 2020-01-07 14:05 | PCM.PN.REN ---
Patient Problems: Active and Suspected Problems (Last Reviewed 01/06/20 @ 01:[address] Leon Armas MD) COVID-19 (Acute) Pneumonia due to 2019 novel coronavirus (Acute) Subjective: extubated, off bicarb drip. Temp dialysis catheter placed to initiate hemodialysis today for elevated BUN/Creatinine. Currently on dialysis, seen via telemedicine at 4:50pm. Crit line steep, running even. BP low. Episode of apnea during treatment, intermittently responsive. - Physical Exam Vitals/I&O's: Vital Signs Temp Pulse Resp BP Pulse Ox 99.1 F 70 31 H 102/50 L 100 01/07/20 13:13 01/07/20 13:13 01/07/20 13:13 01/07/20 13:13 01/07/20 13:13 Oxygen Flow Rate (L/min) 2 Oxygen Delivery Method Nasal Cannula Weight: 82.6 kg Body Mass Index (BMI) 25.6 Intake and Output for Last 24 Hours 01/05/20 01/06/20 01/07/20 23:59 23:59 23:59 Intake Total 516.23 / 516.23 3237.20 / 3242.20 1811.25 / 1811.25 Output Total 940 / 940 350 / 350 Balance 516.23 / 516.23 2297.20 / 2302.20 1461.25 / 1461.25 General: - - occasionally responsive, off vent Cardiovascular: - - paced Extremities: Edema Microbiology Past 72 Hours 01/05/20 20:05 Urine Catheter - Catheter Urine Culture - Preliminary Culture exhibits no growth. 01/06/20 01:00 Urine Catheter - Pena Legionella Antigen - Final 01/06/20 01:00 Urine Catheter - Pena Streptococcus pneumoniae Antigen (M - Final 01/05/20 20:37 Mucosa - Nasopharyngeal Respiratory Panel (PCR) - Final Laboratory Results 01/06/20 15:20: Blood Type O POSITIVE 01/07/20 03:00: Sodium 135 L, Potassium 4.5, Chloride 101, Carbon Dioxide 21.0, Anion Gap 13, BUN 111 H*, Creatinine 4.90 H, Estim Creat Clear Calc 11.79, Est GFR (MDRD) Af Amer 15 L, Est GFR (MDRD) Non-Af 12 L, BUN/Creatinine Ratio 22.7 H, Glucose 319 H, Calcium 7.9 L, Total Bilirubin 1.00, AST 43 H, ALT 83 H, Alkaline Phosphatase 93, Total Protein 5.5 L, Albumin 2.4 L, Globulin 3.1, Albumin/Globulin Ratio 0.8 L 01/07/20 06:20: Specimen Type ART, Sample Site L Radial, pH 7.38, Bicarbonate Actual 20.4 L, Total CO2 21, Base Excess -5 L, O2 Saturation 98, O2 % 30, ABG pCO2 34.3 L, ABG pO2 103 H, Daniel Test Positive, O2 Delivery Device Adult Vent, Vent Mode CPAP/PS, POC PEEP 5, POC Pressure Suppt 5 01/07/20 12:40: APTT 28.1 01/07/20 12:40: Ur Random Sodium 15, Urine Creatinine 120.00 Current Medications Acetaminophen (Acetaminophen 325 Mg Tablet) 650 mg PO Q6H PRN PRN PRN Reason: Pain Score 1-10/Temp > 100.7 F Last Admin: 01/06/20 02:23 Dose: 650 mg Documented by: Aspirin (Aspirin 81 Mg Tab.Chew) 81 mg PO DAILY@0800 [facility] Last Admin: 01/07/20 12:36 Dose: Not Given Documented by: Dexamethasone Sodium Phosphate (Dexamethasone 4 Mg/Ml Vial) 6 mg IV Q24 [facility] Last Admin: 01/07/20 12:35 Dose: 6 mg Documented by: Famotidine (Famotidine 20 Mg Tablet) 20 mg PO DAILY [facility] Last Admin: 01/07/20 12:36 Dose: Not Given Documented by: Heparin Sodium (Porcine) (Heparin Injection (Vial) 5,000 Unit/Ml Vial) 5,000 unit SC Q12 [facility] Last Admin: 01/07/20 12:35 Dose: 5,000 unit Documented by: Sodium Chloride () 250 mls @ 15 mls/hr IV .[id number] PRN PRN Reason: Saline Flush Sodium Chloride () 250 mls @ 15 mls/hr IV .[id number] PRN PRN Reason: Additional IVPB Infusion Meropenem 500 mg/ Sodium (Chloride) 60 mls @ 100 mls/hr IV Q12 [facility] Last Infusion: 01/07/20 13:12 Dose: Infused Documented by: Insulin Glargine (Insulin Glargine 100 Units/Ml Pen) 10 units SC BID [facility] Last Admin: 01/07/20 12:36 Dose: 10 units Documented by: Insulin Human Lispro (Insulin Lispro 100 Unit/Ml Insuln.Pen) 0 unit SC Q6@0400,1000,1600,2200 [facility]; Protocol Last Admin: 01/07/20 12:35 Dose: Not Given Documented by: L-Arginine/L-Glutamine/Calcium HMB ([facility]enn (Unflavored) Packet) [facility] Ondansetron HCl (Ondansetron 4 Mg/2 Ml Vial) 4 mg IV Q8H PRN PRN PRN Reason: NAUSEA/VOMITING Senna/Docusate Sodium (Senna/Docusate Sodium 1 Tablet) 2 tablet PO BID [facility] Last Admin: 01/07/20 12:36 Dose: Not Given Documented by: Sodium Chloride (0.9% Saline Lock 10 Ml Syringe) 10 - 40 ml IV UD PRN PRN Reason: SALINE FLUSH Last Admin: 01/07/20 03:04 Dose: 20 ml Documented by: Medical Necessity - Tobacco Use Smoking Status: Unknown if ever smoked Assessment/Plan All Active Problems (Last Reviewed 01/06/20 @ 01:[address] Leon Armas MD) COVID-19 (Acute) Pneumonia due to 2019 novel coronavirus (Acute) 1. Oliguric Kyle on CKD Stage 4 with underlying diabetic nephropathy, cardiorenal syndrome LVEF 20%. Acute event from [facility], COVID positive, weakness, poor intake on diuretics chronically at home for hx CHF. FeNa <1% urine sodium 12. Currently underging dialysis, supervised treatment via telemedicine at 4:50pm. Unable to tolerate fluid removal based on crit line and low BP. Run even 2. Acute respiratory failure off vent today. Oxygenation stable on 2L NC 3. COVID positive on dexa likely causing 3rd spacing 4. + troponins with nonspecific ST-T wave changes, LBBB. 5. 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 6. DM2 stable sugars 7. Hypotension due to cardiomyopathy 8. Elevated liver enzymes improved.
--- NOTE | 2020-01-07 14:09 | NURSING ---
Spoke w/ pt's Aixa- updated on extubation, dialysis plans, intermittent confusion. She verbalizes understanding.
[2020-01-07 14:36] LABS: Bedside Glucose 229 mg/dL (70-110)
[2020-01-07 19:01] LABS: Bedside Glucose 144 mg/dL (70-110)
--- NOTE | 2020-01-07 19:35 | DIALYSIS ---
HD stopped after 2 hours, tolerated fair to poor, HR increased from 70s to 120s after 1hr of dialysis, was attempting to run pt even, CritLine profile C, pt bolus'ed due to occasional hypotension and tachycardia, BPs inconsistent (high, low or no readings at all), UF -700mL (gain of 700mL), accessed via right neck temporary dialysis catheter, worked well, next tx per nephrology
[2020-01-08] VITALS (23 sets, daily range): BP systolic 98–132; BP diastolic 41–102; PULSE 67–113; RESP 18–35; TEMP 36.5–39.1; O2SAT 90–98
[2020-01-08 04:01] LABS: Absolute Lymphocyte Count 0.15 X10^3/uL (0.83-4.51); Absolute Neutrophil Count 10.6 X10^3/uL (2.0-7.7); Basophil# 0.01 X10^3/uL; Basophil% 0.1 % (0-1); Hematocrit 35.6 % (40-54); Lymphocyte # 0.15 X10^3/ul (4.0); Lymphocyte % 1.3 % (19-41); Mean Corp Hgb Conc 30.9 g/dL (32-36); Mean Corpuscular Hgb 26.6 pg (27.0-32.0); Mean Platelet Vol. 11.5 fl (6.2-12.0); Monocyte# 0.85 X10^3/uL; Monocyte% 7.2 % (0-10); NRBC Flagged by Analyzer 0.3 % (0-5); Neutrophil # 10.58 X10^3/uL (2.7-7.7); Neutrophil % 89.1 % (47-70); POSITIVE DIFFERENTIAL YES; POSITIVE MORPHOLOGY YES; Platelet Count 297 K/mm3 (150-450); RBC Distribution Width CV 15.7 % (11.6-14.6); RBC Distribution Width SD 49.7 fl (35.1-43.9); Red Blood Count 4.14 M/mm3 (4.6-6.2); White Blood Count 11.9 K/mm3 (4.4-11.0)
[2020-01-08 04:06] LABS: Anion Gap 12 (5-15); BUN 82 mg/dL (7-18); BUN/Creat Ratio 21.3 RATIO (10-20); Calcium,Total 8.3 mg/dL (8.5-10.1); Chloride 99 mmol/L (98-107); Creatinine, Serum 3.85 mg/dL (0.70-1.30); EST Glomerular Filtration Rate 16 mL/min (>60); Est Glom Filt Rate - Afr Amer 19 mL/min (>60); Estimated Creatinine Clearance 15.01 ml/min; Glucose 79 mg/dL (74-106); Potassium 4.2 mmol/L (3.5-5.1); Sodium Level 135 mmol/L (136-145)
[2020-01-08 04:11] LABS: Differential Indicated SCAN CRITERIA MET
[2020-01-08 04:51] LABS: Ovalocyte 1+; Platelet Estimate ADEQUATE (ADEQ); Schistocytes 1+
[2020-01-08 04:52] LABS: Anisocytosis 2+; Crenated RBC 2+; Polychromasia RARE
--- NOTE | 2020-01-08 07:13 | PCM.PN.INT ---
Subjective: Patient did well overnight. Patient reportedly had some tachycardia during dialysis, so was maintained in the intensive care unit overnight. Patient has remained on 2 L nasal cannula. Patient did have a 4 beat run of nonsustained V. tach noted on telemetry. Patient is reporting some abdominal discomfort today, but overall feels improved General: Alert, Cooperative - Intermittently, No apparent distress, - - Chooses not to vocalize very often HEENT: Atraumatic, PERRLA, EOMI, Normocephalic, - - No scleral icterus or injection noted Oral: Moist Mucosa, No Gingival or Mucosal Lesions/ Ulcerations Neck: Supple, No JVD, No Nodes, Trachea Midline Lungs: No rhonchi, No wheeze, No rales, Diminished, - - Fair effort. Symmetric expansion. Cardiovascular: Regular rate, Regular Rhythm, Normal S1, Normal S2, No murmurs, No rub noted, No Gallop Abdomen: Bowel Sounds Present, Soft, Non Tender, Non-Distended Extremities: No clubbing, No cyanosis, No edema, Capillary Refill Less than 3 Seconds Skin: - - No changes compared to previous Musculoskeletal: No Tenderness to Palpation of Joints or Extremities Lymphatic: No Cervical, Supraclavicular, or Inguinal Adenopathy Neurological: Cranial nerves II-XII grossly intact, Neuro grossly intact, Motor Exam 5/5 strength throughout Psych/Mental Status: Flat Affect Vital Signs Temp Pulse Resp BP Pulse Ox 38.1 C H 75 28 H 132/91 H 97 01/08/20 06:00 01/08/20 06:00 01/08/20 06:00 01/08/20 06:00 01/08/20 06:00 Oxygen Flow Rate (L/min) 2 Oxygen Delivery Method Nasal Cannula Weight: 82.2 kg Body Mass Index (BMI) 25.6 Intake and Output for Last 24 Hours 01/06/20 01/07/20 01/08/20 23:59 23:59 22:59 Intake Total 3237.20 / 3242.20 2571.25 / 2571.25 Output Total 940 / 940 465 / 515 80 / 80 Balance 2297.20 / 2302.20 2106.25 / 2056.25 -80 / -80 Labs (Last 48 Hours) 01/06/20 01/06/20 01/06/20 03:30 10:20 15:20 WBC RBC Hgb Hct MCV MCH MCHC RDW Std Deviation RDW Coeff of Iam Plt Count MPV Immature Gran % (Auto) Neut % (Auto) Lymph % (Auto) [place] % (Auto) Eos % (Auto) Baso % (Auto) Absolute Neuts (auto) Absolute Lymphs (auto) Nucleated RBC % Differential Comment Diff Path Review Reviewed Platelet Estimate Polychromasia Anisocytosis Ovalocytes Crenated Cell Schistocytes APTT 148.8 H* Specimen Type Sample Site pH Bicarbonate Actual Total CO2 Base Excess O2 Saturation O2 % ABG pCO2 ABG pO2 Daniel Test O2 Delivery Device Vent Mode POC PEEP POC Pressure Suppt Sodium Potassium Chloride Carbon Dioxide Anion Gap BUN Creatinine Estim Creat Clear Calc Est GFR (MDRD) Af Amer Est GFR (MDRD) Non-Af BUN/Creatinine Ratio Glucose Calcium Total Bilirubin AST ALT Alkaline Phosphatase Total Protein Albumin Globulin Albumin/Globulin Ratio Ur Random Sodium Urine Creatinine POC Glucose Blood Type O POSITIVE 01/07/20 01/07/20 01/07/20 03:00 06:20 12:02 WBC RBC Hgb Hct MCV MCH MCHC RDW Std Deviation RDW Coeff of Iam Plt Count MPV Immature Gran % (Auto) Neut % (Auto) Lymph % (Auto) [place] % (Auto) Eos % (Auto) Baso % (Auto) Absolute Neuts (auto) Absolute Lymphs (auto) Nucleated RBC % Differential Comment Diff Path Review Platelet Estimate Polychromasia Anisocytosis Ovalocytes Crenated Cell Schistocytes APTT Specimen Type ART Sample Site L Radial pH 7.38 Bicarbonate Actual 20.4 L Total CO2 21 Base Excess -5 L O2 Saturation 98 O2 % 30 ABG pCO2 34.3 L ABG pO2 103 H Daniel Test Positive O2 Delivery Device Adult Vent Vent Mode CPAP/PS POC PEEP 5 POC Pressure Suppt 5 Sodium 135 L Potassium 4.5 Chloride 101 Carbon Dioxide 21.0 Anion Gap 13 BUN 111 H* Creatinine 4.90 H Estim Creat Clear Calc 11.79 Est GFR (MDRD) Af Amer 15 L Est GFR (MDRD) Non-Af 12 L BUN/Creatinine Ratio 22.7 H Glucose 319 H Calcium 7.9 L Total Bilirubin 1.00 AST 43 H ALT 83 H Alkaline Phosphatase 93 Total Protein 5.5 L Albumin 2.4 L Globulin 3.1 Albumin/Globulin Ratio 0.8 L Ur Random Sodium Urine Creatinine POC Glucose 229 H Blood Type 1001/07/20 01/07/20 12:40 12:40 18:55 WBC RBC Hgb Hct MCV MCH MCHC RDW Std Deviation RDW Coeff of Iam Plt Count MPV Immature Gran % (Auto) Neut % (Auto) Lymph % (Auto) [place] % (Auto) Eos % (Auto) Baso % (Auto) Absolute Neuts (auto) Absolute Lymphs (auto) Nucleated RBC % Differential Comment Diff Path Review Platelet Estimate Polychromasia Anisocytosis Ovalocytes Crenated Cell Schistocytes APTT 28.1 Specimen Type Sample Site pH Bicarbonate Actual Total CO2 Base Excess O2 Saturation O2 % ABG pCO2 ABG pO2 Daniel Test O2 Delivery Device Vent Mode POC PEEP POC Pressure Suppt Sodium Potassium Chloride Carbon Dioxide Anion Gap BUN Creatinine Estim Creat Clear Calc Est GFR (MDRD) Af Amer Est GFR (MDRD) Non-Af BUN/Creatinine Ratio Glucose Calcium Total Bilirubin AST ALT Alkaline Phosphatase Total Protein Albumin Globulin Albumin/Globulin Ratio Ur Random Sodium 15 Urine Creatinine 120.00 POC Glucose 144 H Blood Type 01/08/20 01/08/20 03:40 03:40 WBC 11.9 H RBC 4.14 L Hgb 11.0 L Hct 35.6 L MCV 86.0 D MCH 26.6 L MCHC 30.9 L D RDW Std Deviation 49.7 H RDW Coeff of Iam 15.7 H Plt Count 297 MPV 11.5 Immature Gran % (Auto) 2.300 H Neut % (Auto) 89.1 H Lymph % (Auto) 1.3 L [place] % (Auto) 7.2 Eos % (Auto) 0.0 Baso % (Auto) 0.1 Absolute Neuts (auto) 10.6 H Absolute Lymphs (auto) 0.15 L Nucleated RBC % 0.3 Differential Comment COMMENT Diff Path Review Platelet Estimate ADEQUATE Polychromasia RARE Anisocytosis 2+ Ovalocytes 1+ Crenated Cell 2+ Schistocytes 1+ APTT Specimen Type Sample Site pH Bicarbonate Actual Total CO2 Base Excess O2 Saturation O2 % ABG pCO2 ABG pO2 Daniel Test O2 Delivery Device Vent Mode POC PEEP POC Pressure Suppt Sodium 135 L Potassium 4.2 Chloride 99 Carbon Dioxide 24.0 Anion Gap 12 BUN 82 H Creatinine 3.85 H Estim Creat Clear Calc 15.01 Est GFR (MDRD) Af Amer 19 L Est GFR (MDRD) Non-Af 16 L BUN/Creatinine Ratio 21.3 H Glucose 79 Calcium 8.3 L Total Bilirubin AST ALT Alkaline Phosphatase Total Protein Albumin Globulin Albumin/Globulin Ratio Ur Random Sodium Urine Creatinine POC Glucose Blood Type Microbiology 01/05/20 20:05 Urine Catheter - Catheter Urine Culture - Preliminary Culture exhibits no growth. Clinical Impression(s) from Imaging Studies Chest X-Ray 01/07/20 11:13 IMPRESSION: 1. Interval removal of endotracheal tube and nasogastric tube. 2. Interval placement of right internal jugular introducer with tip of the catheter overlying the junction of the right atrium and spur vena cava with no pneumothorax. 3. No change in tiny left pleural effusion. Electronically Signed: Denver Tamayo MD at 12:26 EDT Tel , Service support , Medical Necessity - Tobacco Use Smoking Status: Unknown if ever smoked Assessment/Plan All Active Problems (Last Reviewed 01/06/20 @ 01:[address] Leon Armas MD) COVID-19 (Acute) Pneumonia due to 2019 novel coronavirus (Acute) RECOMMENDATIONS: 1. Discontinue IV fluids 2. Continue empiric antibiotics given elevated procalcitonin until culture negative 3. Dialysis per nephrology 4. Defer to hospitalist on involvement of cardiology 5. Continue with Decadron 6. Okay to leave the intensive care unit from my perspective IMPRESSIONS: 1. Acute hypoxic respiratory failure secondary to COVID-19 pneumonia Probable etiology of decreased movement and pressure injury secondary to COVID-19 with associated weakness. Family is not very clear on patient's last known well. Given renal failure, remdesivir is not an option. Okay to continue with anticoagulation and steroids from my perspective. Patient does have an elevated pro calcitonin, so superinfection would be a consideration. Infectious disease has been consulted. We will continue with empiric antibiotics pending culture data. 2. Acute on chronic kidney disease stage IV Patient likely has an element of worsening secondary to hypoxia and possible rhabdomyolysis. Nephrology has been consulted. Await their input. Patient presented with significant metabolic acidosis, but this appears to be improved. IV fluids have been discontinued. Patient did have hemodialysis yesterday. 3. Non-ST elevation DC/chronic combined congestive heart failure Patient has had a consistently elevated troponin. Patient reportedly has significant congestive heart failure at baseline. This cannot be confirmed independently. Defer to hospitalist on whether cardiology should be involved. Reasonable to continue with anticoagulation for now. 4. Nonanion gap metabolic acidosis secondary to #2 Resolved. Patient placed on a bicarbonate drip initially. Patient was hypoxic at presentation, but lactate was relatively normal. Patient was already being followed for chronic kidney disease stage IV. Nephrology has been consulted. Patient has been placed on dialysis. No indication for fluids at this time. 5. Possible rhabdomyolysis secondary to pressure injury Nursing to evaluate posterior and intervene for pressure injury. Does not appear to be infected at this time. Patient does not have a CPK at this time. 6. Advanced age/elevated liver enzymes/poor historian-history Complicates care, management, recovery and prognosis. Will need to watch liver function studies closely if patient is deemed appropriate for remdesivir by infectious disease Inpatient E&M: 92442 Subs Hosp L2
[2020-01-08] MEDS: dexAMETHasone 4 MG/ML Vial 6 MG IV (09:58)
[2020-01-08] MEDS: Heparin Injection (Vial) 5,000 UNIT/ML VIAL 5000 UNIT SC ×2 (09:58→22:36)
--- NOTE | 2020-01-08 10:05 | PCM.PN.SRG ---
Patient Problems: Active and Suspected Problems (Last Updated 01/09/20 @ 06:35 by Oxana Hightower) COVID-19 (Acute) Pneumonia due to 2019 novel coronavirus (Acute) Subjective: Planning to move patient to the floor today. Patient's line worked without any issues for dialysis however patient overall may not tolerated dialysis well - Physical Exam Vitals/I&O's: Vital Signs Temp Pulse Resp BP Pulse Ox 101.5 F H 90 32 H 127/77 H 98 01/08/20 09:00 01/08/20 09:00 01/08/20 09:00 01/08/20 09:00 01/08/20 09:00 Oxygen Flow Rate (L/min) 2 Oxygen Delivery Method Nasal Cannula Weight: 181 lb 3.52 oz Body Mass Index (BMI) 25.6 Intake and Output for Last 24 Hours 01/06/20 01/07/20 01/08/20 23:59 23:59 22:59 Intake Total 3237.20 / 3242.20 2571.25 / 2571.25 Output Total 940 / 940 465 / 515 80 / 80 Balance 2297.20 / 2302.20 2106.25 / 2056.25 -80 / -80 Comment: PE not completed due to +Covid, to reduce unnecessary exposure- Microbiology Past 72 Hours 01/05/20 19:00 Blood Culture (Wb) - Anticubital Right Blood Culture - Preliminary No growth in 48 hours. 01/05/20 19:00 Blood Culture (Wb) - Anticubital Left Blood Culture - Preliminary No growth in 48 hours. 01/06/20 15:20 Swab (Method) Nasal Screen MRSA/MSSA - Final 01/05/20 20:05 Urine Catheter - Catheter Urine Culture - Preliminary Culture exhibits no growth. 01/06/20 01:00 Urine Catheter - Pena Legionella Antigen - Final 01/06/20 01:00 Urine Catheter - Pena Streptococcus pneumoniae Antigen (M - Final 01/05/20 20:37 Mucosa - Nasopharyngeal Respiratory Panel (PCR) - Final Laboratory Results 01/07/20 12:02: POC Glucose 229 H 01/07/20 12:40: APTT 28.1 01/07/20 12:40: Ur Random Sodium 15, Urine Creatinine 120.00 01/07/20 18:55: POC Glucose 144 H 01/08/20 03:40: WBC 11.9 H, RBC 4.14 L, Hgb 11.0 L, Hct 35.6 L, MCV 86.0 D, MCH 26.6 L, MCHC 30.9 L D, RDW Std Deviation 49.7 H, RDW Coeff of Iam 15.7 H, Plt Count 297, MPV 11.5, Immature Gran % (Auto) 2.300 H, Neut % (Auto) 89.1 H, Lymph % (Auto) 1.3 L, [place] % (Auto) 7.2, Eos % (Auto) 0.0, Baso % (Auto) 0.1, Absolute Neuts (auto) 10.6 H, Absolute Lymphs (auto) 0.15 L, Nucleated RBC % 0.3, Differential Comment COMMENT, Platelet Estimate ADEQUATE, Polychromasia RARE, Anisocytosis 2+, Ovalocytes 1+, Crenated Cell 2+, Schistocytes 1+ 01/08/20 03:40: Sodium 135 L, Potassium 4.2, Chloride 99, Carbon Dioxide 24.0, Anion Gap 12, BUN 82 H, Creatinine 3.85 H, Estim Creat Clear Calc 15.01, Est GFR (MDRD) Af Amer 19 L, Est GFR (MDRD) Non-Af 16 L, BUN/Creatinine Ratio 21.3 H, Glucose 79, Calcium 8.3 L Current Medications Acetaminophen (Acetaminophen 650 Mg Suppository) 650 mg RECTAL Q6H PRN PRN PRN Reason: Pain 1-10 or Fever Aspirin (Aspirin 81 Mg Tab.Chew) 81 mg PO DAILY@0800 [facility] Last Admin: 01/07/20 12:36 Dose: Not Given Documented by: Dexamethasone Sodium Phosphate (Dexamethasone 4 Mg/Ml Vial) 6 mg IV Q24 [facility] Last Admin: 01/08/20 09:58 Dose: 6 mg Documented by: Famotidine (Famotidine 20 Mg Tablet) 20 mg PO DAILY [facility] Last Admin: 01/07/20 12:36 Dose: Not Given Documented by: Heparin Sodium (Porcine) (Heparin Injection (Vial) 5,000 Unit/Ml Vial) 5,000 unit SC Q12 [facility] Last Admin: 01/08/20 09:58 Dose: 5,000 unit Documented by: Sodium Chloride () 250 mls @ 15 mls/hr IV .[id number] PRN PRN Reason: Saline Flush Sodium Chloride () 250 mls @ 15 mls/hr IV .[id number] PRN PRN Reason: Additional IVPB Infusion Meropenem 500 mg/ Sodium (Chloride) 60 mls @ 100 mls/hr IV Q12 [facility] Last Admin: 01/08/20 09:59 Dose: 100 mls/hr Documented by: Insulin Glargine (Insulin Glargine 100 Units/Ml Pen) 10 units SC BID [facility] Last Admin: 01/07/20 21:33 Dose: 10 units Documented by: Insulin Human Lispro (Insulin Lispro 100 Unit/Ml Insuln.Pen) 0 unit SC Q6@0400,1000,1600,2200 [facility]; Protocol Last Admin: 01/08/20 04:10 Dose: Not Given Documented by: L-Arginine/L-Glutamine/Calcium HMB ([facility]enn ([facility]) [facility]) [facility] Last Admin: 01/07/20 16:55 Dose: Not Given Documented by: Ondansetron HCl (Ondansetron 4 Mg/2 Ml Vial) 4 mg IV Q8H PRN PRN PRN Reason: NAUSEA/VOMITING Senna/Docusate Sodium (Senna/Docusate Sodium 1 Tablet) 2 tablet PO BID [facility] Last Admin: 01/07/20 21:40 Dose: Not Given Documented by: Sodium Chloride (0.9% Saline Lock 10 Ml Syringe) 10 - 40 ml IV UD PRN PRN Reason: SALINE FLUSH Last Admin: 01/07/20 03:04 Dose: 20 ml Documented by: Medical Necessity - Tobacco Use Smoking Status: Unknown if ever smoked Assessment/Plan All Active Problems (Last Updated 01/09/20 @ 06:35 by Oxana Hightower) Non-ST elevated myocardial infarction (non-STEMI) (Acute 01/06/20) COVID-19 (Acute) Pneumonia due to 2019 novel coronavirus (Acute) Elevated troponin (Acute 01/06/20) Will plan for tunnelled dialysis catheter tomorrow; however, he didn't tolerate dialysis well yesterday, so will await labs in the AM to see if Nephrology would even plan for future dialysis. If not, would not place tunnelled catheter. Jannet Castellanos M.D. Pager: [phone] [facility] [address] [place] [address], [facility] [address] [place] [address] Office: [phone] Inpatient E&M: 09919 Subs Hosp L1
[2020-01-08] MEDS: Acetaminophen 650 MG Suppository RECTAL (10:46)
[2020-01-08 10:56] LABS: Bedside Glucose 119 mg/dL (70-110)
--- NOTE | 2020-01-08 12:31 | PCM.PN.HOSP ---
Patient Problems: Active and Suspected Problems (Last Reviewed 01/06/20 @ 01:[address] Leon Armas MD) COVID-19 (Acute) Pneumonia due to 2019 novel coronavirus (Acute) Reason for Visit: COVID Subjective: Tolerating nasal canula. Confused unable to provide any history. Vitals/I&O's: Vital Signs Temp Pulse Resp BP Pulse Ox 36.8 C 78 24 H 105/53 L 96 01/08/20 12:09 01/08/20 12:09 01/08/20 12:09 01/08/20 12:09 01/08/20 12:09 Oxygen Flow Rate (L/min) 2 Oxygen Delivery Method Nasal Cannula Weight: 82.2 kg Body Mass Index (BMI) 25.6 Intake and Output for Last 24 Hours 01/06/20 01/07/20 01/08/20 23:59 23:59 22:59 Intake Total 3237.20 / 3242.20 2571.25 / 2571.25 60 / 60 Output Total 940 / 940 465 / 515 80 / 80 Balance 2297.20 / 2302.20 2106.25 / 2056.25 -20 General: Alert, No apparent distress HEENT: Atraumatic, Normocephalic Oral: Moist Mucosa, No Gingival or Mucosal Lesions/ Ulcerations Neck: No Nodes, Thyroid Normal Size and Texture Lungs: Clear to auscultation, Normal air movement, No rhonchi, No wheeze Cardiovascular: Regular rate, Regular Rhythm, Normal S1, Normal S2 Abdomen: Bowel Sounds Present, Soft, Non Tender, Non-Distended Extremities: No edema, No Calf Tenderness Microbiology Past 72 Hours 01/05/20 20:05 Urine Catheter - Catheter Urine Culture - Final Culture exhibits no growth. 01/05/20 19:00 Blood Culture (Wb) - Anticubital Right Blood Culture - Preliminary No growth in 48 hours. 01/05/20 19:00 Blood Culture (Wb) - Anticubital Left Blood Culture - Preliminary No growth in 48 hours. 01/06/20 15:20 Swab (Method) Nasal Screen MRSA/MSSA - Final 01/06/20 01:00 Urine Catheter - Pena Legionella Antigen - Final 01/06/20 01:00 Urine Catheter - Pena Streptococcus pneumoniae Antigen (M - Final 10/29/20 20:37 Mucosa - Nasopharyngeal Respiratory Panel (PCR) - Final Laboratory Results 01/07/20 12:02: POC Glucose 229 H 01/07/20 18:55: POC Glucose 144 H 01/07/20 21:32: POC Glucose 119 H 01/08/20 03:40: WBC 11.9 H, RBC 4.14 L, Hgb 11.0 L, Hct 35.6 L, MCV 86.0 D, MCH 26.6 L, MCHC 30.9 L D, RDW Std Deviation 49.7 H, RDW Coeff of Iam 15.7 H, Plt Count 297, MPV 11.5, Immature Gran % (Auto) 2.300 H, Neut % (Auto) 89.1 H, Lymph % (Auto) 1.3 L, [place] % (Auto) 7.2, Eos % (Auto) 0.0, Baso % (Auto) 0.1, Absolute Neuts (auto) 10.6 H, Absolute Lymphs (auto) 0.15 L, Nucleated RBC % 0.3, Differential Comment COMMENT, Platelet Estimate ADEQUATE, Polychromasia RARE, Anisocytosis 2+, Ovalocytes 1+, Crenated Cell 2+, Schistocytes 1+ 01/08/20 03:40: Sodium 135 L, Potassium 4.2, Chloride 99, Carbon Dioxide 24.0, Anion Gap 12, BUN 82 H, Creatinine 3.85 H, Estim Creat Clear Calc 15.01, Est GFR (MDRD) Af Amer 19 L, Est GFR (MDRD) Non-Af 16 L, BUN/Creatinine Ratio 21.3 H, Glucose 79, Calcium 8.3 L Current Medications Acetaminophen (Acetaminophen 650 Mg Suppository) 650 mg RECTAL Q6H PRN PRN PRN Reason: Pain 1-10 or Fever Last Admin: 01/08/20 10:46 Dose: 650 mg Documented by: Aspirin (Aspirin 81 Mg Tab.Chew) 81 mg PO DAILY@0800 [facility] Last Admin: 01/08/20 10:09 Dose: Not Given Documented by: Dexamethasone Sodium Phosphate (Dexamethasone 4 Mg/Ml Vial) 6 mg IV Q24 [facility] Last Admin: 01/08/20 09:58 Dose: 6 mg Documented by: Famotidine (Famotidine 20 Mg Tablet) 20 mg PO DAILY [facility] Last Admin: 01/08/20 10:10 Dose: Not Given Documented by: Heparin Sodium (Porcine) (Heparin Injection (Vial) 5,000 Unit/Ml Vial) 5,000 unit SC Q12 [facility] Last Admin: 01/08/20 09:58 Dose: 5,000 unit Documented by: Sodium Chloride () 250 mls @ 15 mls/hr IV .[id number] PRN PRN Reason: Saline Flush Sodium Chloride () 250 mls @ 15 mls/hr IV .[id number] PRN PRN Reason: Additional IVPB Infusion Meropenem 500 mg/ Sodium (Chloride) 60 mls @ 100 mls/hr IV Q12 [facility] Last Infusion: 01/08/20 10:55 Dose: Infused Documented by: Insulin Glargine (Insulin Glargine 100 Units/Ml Pen) 10 units SC BID [facility] Last Admin: 01/08/20 10:09 Dose: Not Given Documented by: Insulin Human Lispro (Insulin Lispro 100 Unit/Ml Insuln.Pen) 0 unit SC Q6@0400,1000,1600,2200 [facility]; Protocol Last Admin: 01/08/20 10:41 Dose: Not Given Documented by: L-Arginine/L-Glutamine/Calcium HMB (Glenn (Unflavored) Packet) 1 packet PO BIDCM [facility] Last Admin: 01/08/20 10:09 Dose: Not Given Documented by: Ondansetron HCl (Ondansetron 4 Mg/2 Ml Vial) 4 mg IV Q8H PRN PRN PRN Reason: NAUSEA/VOMITING Senna/Docusate Sodium (Senna/Docusate Sodium 1 Tablet) 2 tablet PO BID [facility] Last Admin: 01/08/20 10:10 Dose: Not Given Documented by: Sodium Chloride (0.9% Saline Lock 10 Ml Syringe) 10 - 40 ml IV UD PRN PRN Reason: SALINE FLUSH Last Admin: 01/07/20 03:04 Dose: 20 ml Documented by: STROKE Vital Signs/Narrative: Vital Signs Temp Pulse Resp BP BP Pulse Ox 01/08/20 12:09 36.8 C 78 24 H 105/53 L 96 01/08/20 11:00 39.0 C H 82 25 H 127/41 H 90 01/08/20 10:00 38.8 C H 81 29 H 120/76 92 01/08/20 09:00 38.6 C H 90 32 H 127/77 H 98 Medical Necessity - Tobacco Use Smoking Status: Unknown if ever smoked Assessment/Plan All Active Problems (Last Reviewed 01/06/20 @ 01:[address] Leon Armas MD) COVID-19 (Acute) Pneumonia due to 2019 novel coronavirus (Acute) 1. acute hypoxic respiratory failure: 2/2 COVID pneumonia. Extubated 01/06. Tolerating NC. 2. acute COVID-19 pneumonia. On dexamethasone. Not candidate for remdesivir. On meropenem 3. NSTEMI, suspect type II given above, but also skewed given CKD. Consider echocardiogram. On ASA. Cath from July showed patent vessels. Med mgmt. 4. HFrEF: EF 20% from echo from 07/2018 and cardiac cath from 07/2019 5. LUCIA: baseline around 2.5. Anuric. Nephrology on consult. RUDDY Rivera, she discussed with and she wishes to him to have HD. Tunneled HD catheter for 01/08. RUDDY Castellanos. 6. VTE prophylaxis: SQ heparin. 7. Nutrition: speech to clear post extubation. Prognosis: guarded. Inpatient E&M: 16701 Subs Hosp L2
[2020-01-08 16:51] LABS: Bedside Glucose 76 mg/dL (70-110)
[2020-01-08 17:10] LABS: Bedside Glucose 94 mg/dL (70-110)
[2020-01-08] MEDS: 0.9% Saline Lock 10 ML Syringe IV (22:40)
[2020-01-09] VITALS (16 sets, daily range): BP systolic 106–130; BP diastolic 62–92; PULSE 69–87; RESP 20–26; TEMP 36.1–36.6; O2SAT 95–100
[2020-01-09 00:11] LABS: Bedside Glucose 94 mg/dL (70-110)
[2020-01-09 03:55] LABS: Bedside Glucose 109 mg/dL (70-110)
[2020-01-09 07:00] LABS: Absolute Lymphocyte Count 0.12 X10^3/uL (0.83-4.51); Absolute Neutrophil Count 5.1 X10^3/uL (2.0-7.7); Hematocrit 36.1 % (40-54); Hemoglobin 10.9 g/dL (13.0-16.5); Lymphocyte # 0.12 X10^3/ul (4.0); Mean Corp Hgb Conc 30.2 g/dL (32-36); Mean Corpuscular Hgb 26.8 pg (27.0-32.0); Mean Corpuscular Volume 88.9 fL (80-94); Mean Platelet Vol. 11.6 fl (6.2-12.0); Monocyte# 0.54 X10^3/uL; Monocyte% 9.1 % (0-10); NRBC Flagged by Analyzer 0.3 % (0-5); Neutrophil # 5.12 X10^3/uL (2.7-7.7); Neutrophil % 86.7 % (47-70); POSITIVE DIFFERENTIAL YES; Platelet Count 259 K/mm3 (150-450); RBC Distribution Width CV 15.8 % (11.6-14.6); RBC Distribution Width SD 51.7 fl (35.1-43.9); Red Blood Count 4.06 M/mm3 (4.6-6.2); White Blood Count 5.9 K/mm3 (4.4-11.0)
[2020-01-09 07:32] LABS: Differential Indicated SCAN CRITERIA MET
[2020-01-09 07:33] LABS: Anisocytosis 2+; Differential Comment SCANNED; Hypochromasia 1+; Ovalocyte 2+
[2020-01-09 07:44] LABS: Albumin, Serum 2.4 g/dL (3.2-5.0); BUN 102 mg/dL (7-18); BUN/Creat Ratio 25.2 RATIO (10-20); Calcium,Total 8.4 mg/dL (8.5-10.1); Chloride 100 mmol/L (98-107); Creatinine, Serum 4.04 mg/dL (0.70-1.30); EST Glomerular Filtration Rate 15 mL/min (>60); Est Glom Filt Rate - Afr Amer 18 mL/min (>60); Glucose 93 mg/dL (74-106); Magnesium 2.7 mg/dL (1.6-2.6); Phosphorus 6.5 mg/dL (2.5-4.9); Potassium 4.4 mmol/L (3.5-5.1); Sodium Level 136 mmol/L (136-145)
--- NOTE | 2020-01-09 08:01 | PCM.PN.SRG ---
Patient Problems: Active and Suspected Problems (Last Updated 01/09/20 @ 06:35 by Oxana Hightower) COVID-19 (Acute) Pneumonia due to 2019 novel coronavirus (Acute) Subjective: Patient was moved to [facility] to from the ICU yesterday. Patient did not tolerate the dialysis the day before yesterday well. - Physical Exam Vitals/I&O's: Vital Signs Temp Pulse Resp BP Pulse Ox 97.0 F L 73 24 H 106/73 99 01/09/20 06:30 01/09/20 07:00 01/09/20 06:30 01/09/20 06:30 01/09/20 06:30 Oxygen Flow Rate (L/min) 2 Oxygen Delivery Method Nasal Cannula Weight: 177 lb 11.081 oz Body Mass Index (BMI) 25.6 Intake and Output for Last 24 Hours 01/08/20 01/08/20 01/09/20 00:59 23:59 23:59 Intake Total Output Total 425 / 425 Balance -425 / -425 Comment: PE not completed due to +Covid, to reduce unnecessary exposure- Microbiology Past 72 Hours 01/05/20 20:05 Urine Catheter - Catheter Urine Culture - Final Culture exhibits no growth. 01/05/20 19:00 Blood Culture (Wb) - Anticubital Right Blood Culture - Preliminary No growth in 48 hours. 01/05/20 19:00 Blood Culture (Wb) - Anticubital Left Blood Culture - Preliminary No growth in 48 hours. 01/06/20 15:20 Swab (Method) Nasal Screen MRSA/MSSA - Final Laboratory Results 01/07/20 21:32: POC Glucose 119 H 01/08/20 10:30: POC Glucose 76 01/08/20 15:53: POC Glucose 94 01/08/20 22:31: POC Glucose 94 01/09/20 03:33: POC Glucose 109 01/09/20 06:15: Sodium 136, Potassium 4.4, Chloride 100, Carbon Dioxide 24.0, BUN 102 H*, Creatinine 4.04 H, Estim Creat Clear Calc 14.30, Est GFR (MDRD) Af Amer 18 L, Est GFR (MDRD) Non-Af 15 L, BUN/Creatinine Ratio 25.2 H, Glucose 93, Calcium 8.4 L, Phosphorus 6.5 H, Magnesium 2.7 H, Albumin 2.4 L 01/09/20 06:15: WBC 5.9, RBC 4.06 L, Hgb 10.9 L, Hct 36.1 L, MCV 88.9, MCH 26.8 L, MCHC 30.2 L, RDW Std Deviation 51.7 H, RDW Coeff of Iam 15.8 H, Plt Count 259, MPV 11.6, Immature Gran % (Auto) 2.200 H, Neut % (Auto) 86.7 H, Lymph % (Auto) 2.0 L, [place] % (Auto) 9.1, Eos % (Auto) 0.0, Baso % (Auto) 0.0, Absolute Neuts (auto) 5.1, Absolute Lymphs (auto) 0.12 L, Nucleated RBC % 0.3, Differential Comment SCANNED, Hypochromasia 1+, Anisocytosis 2+, Ovalocytes 2+ Current Medications Acetaminophen (Acetaminophen 650 Mg Suppository) 650 mg RECTAL Q6H PRN PRN PRN Reason: Pain 1-10 or Fever Last Admin: 01/08/20 10:46 Dose: 650 mg Documented by: Aspirin (Aspirin 81 Mg Tab.Chew) 81 mg PO DAILY@0800 [facility] Last Admin: 01/08/20 10:09 Dose: Not Given Documented by: Dexamethasone Sodium Phosphate (Dexamethasone 4 Mg/Ml Vial) 6 mg IV Q24 [facility] Last Admin: 01/08/20 09:58 Dose: 6 mg Documented by: Famotidine (Famotidine 20 Mg Tablet) 20 mg PO DAILY [facility] Last Admin: 01/08/20 10:10 Dose: Not Given Documented by: Heparin Sodium (Porcine) (Heparin Injection (Vial) 5,000 Unit/Ml Vial) 5,000 unit SC Q12 [facility] Last Admin: 01/08/20 22:36 Dose: 5,000 unit Documented by: Sodium Chloride () 250 mls @ 15 mls/hr IV .[id number] PRN PRN Reason: Saline Flush Sodium Chloride () 250 mls @ 15 mls/hr IV .[id number] PRN PRN Reason: Additional IVPB Infusion Meropenem 500 mg/ Sodium (Chloride) 60 mls @ 100 mls/hr IV Q12 [facility] Last Infusion: 01/08/20 23:30 Dose: Infused Documented by: Insulin Glargine (Insulin Glargine 100 Units/Ml Pen) 10 units SC BID [facility] Last Admin: 01/08/20 22:34 Dose: Not Given Documented by: Insulin Human Lispro (Insulin Lispro 100 Unit/Ml Insuln.Pen) 0 unit SC Q6@0400,1000,1600,2200 [facility]; Protocol Last Admin: 01/09/20 04:05 Dose: Not Given Documented by: L-Arginine/L-Glutamine/Calcium HMB ([place]enn (Unflavored) [facility]) [facility] Last Admin: 01/08/20 15:56 Dose: Not Given Documented by: Nutritional Formula (Lactose Free) (Glucerna Shake 120 Ml Liquid) 120 ml PO 4X/DAY [facility] Ondansetron HCl (Ondansetron 4 Mg/2 Ml Vial) 4 mg IV Q8H PRN PRN PRN Reason: NAUSEA/VOMITING Senna/Docusate Sodium (Senna/Docusate Sodium 1 Tablet) 2 tablet PO BID [facility] Last Admin: 01/08/20 22:34 Dose: Not Given Documented by: Sodium Chloride (0.9% Saline Lock 10 Ml Syringe) 10 - 40 ml IV UD PRN PRN Reason: SALINE FLUSH Last Admin: 01/08/20 22:40 Dose: 10 ml Documented by: Medical Necessity - Tobacco Use Smoking Status: Unknown if ever smoked Assessment/Plan All Active Problems (Last Updated 01/09/20 @ 06:35 by Oxana Hightower) Non-ST elevated myocardial infarction (non-STEMI) (Acute 01/06/20) COVID-19 (Acute) Pneumonia due to 2019 novel coronavirus (Acute) Elevated troponin (Acute 01/06/20) Discussed with Dr. Rivera. Patient does not plan to get dialysis today we will hold off on the tunneled dialysis catheter. Due to patient not really tolerating the dialysis well on Thursday. Will have the patient continue the temporary line and attempt dialysis tomorrow to see how that goes whether he would really need a tunneled line or not. Jannet Castellanos M.D. Pager: [phone] [facility] [address] [place] [address], Outpatient [place], [address] [place] [address] Office: [phone] Inpatient E&M: [id number] [facility] Hosp L1
[2020-01-09] MEDS: dexAMETHasone 4 MG/ML Vial 6 MG IV (11:00)
[2020-01-09] MEDS: 0.9% Saline Lock 10 ML Syringe IV (11:02)
[2020-01-09] MEDS: Heparin Injection (Vial) 5,000 UNIT/ML VIAL 5000 UNIT SC ×2 (11:03→20:32)
--- NOTE | 2020-01-09 11:18 | NURSING ---
Dialysis nurse Suly phoned in, labs provided. states she will discuss with Dr. Rivera for possible dialysis today vs tomorrow.
--- NOTE | 2020-01-09 11:25 | NURSING ---
Suly bag turner phones back- tenative dialysis for 01/10/2020
--- NOTE | 2020-01-09 11:33 | PN.RENAL_ITS ---
Patient Problems: Active and Suspected Problems (Last Updated 01/09/20 @ 06:35 by Oxana Hightower) COVID-19 (Acute) Pneumonia due to 2019 novel coronavirus (Acute) Subjective: dialysis Thursday, terminated early after 2hrs due to afib with rvr, hypotension. Pt extubated, transferred out of ICU. Poor, unreliable historian, in and out of consciousness. Resting comfortably on oxygen 2L via NC. - Physical Exam Vitals/I&O's: Vital Signs Temp Pulse Resp BP Pulse Ox 97.9 F 72 20 H 130/71 H 98 01/09/20 08:30 01/09/20 08:30 01/09/20 08:30 01/09/20 08:30 01/09/20 08:30 Oxygen Flow Rate (L/min) 2 Oxygen Delivery Method Nasal Cannula Weight: 80.6 kg Body Mass Index (BMI) 25.6 Intake and Output for Last 24 Hours 01/08/20 01/08/20 01/09/20 00:59 23:59 23:59 Intake Total Output Total 575 / 575 Balance -575 / -575 General: No apparent distress, Lethargic Lungs: Clear to auscultation Cardiovascular: Irregular Rate - afib, paced Abdomen: Soft, Non Tender, Non-Distended Psych/Mental Status: - - lethargic Microbiology Past 72 Hours 01/05/20 20:05 Urine Catheter - Catheter Urine Culture - Final Culture exhibits no growth. 01/05/20 19:00 Blood Culture (Wb) - Anticubital Right Blood Culture - Preliminary No growth in 48 hours. 01/05/20 19:00 Blood Culture (Wb) - Anticubital Left Blood Culture - Preliminary No growth in 48 hours. 01/06/20 15:20 Swab (Method) Nasal Screen MRSA/MSSA - Final Laboratory Results 01/08/20 10:30: POC Glucose 76 01/08/20 15:53: POC Glucose 94 01/08/20 22:31: POC Glucose 94 01/09/20 03:33: POC Glucose 109 01/09/20 06:15: Sodium 136, Potassium 4.4, Chloride 100, Carbon Dioxide 24.0, BUN 102 H*, Creatinine 4.04 H, Estim Creat Clear Calc 14.30, Est GFR (MDRD) Af Amer 18 L, Est GFR (MDRD) Non-Af 15 L, BUN/Creatinine Ratio 25.2 H, Glucose 93, Calcium 8.4 L, Phosphorus 6.5 H, Magnesium 2.7 H, Albumin 2.4 L 01/09/20 06:15: WBC 5.9, RBC 4.06 L, Hgb 10.9 L, Hct 36.1 L, MCV 88.9, MCH 26.8 L, MCHC 30.2 L, RDW Std Deviation 51.7 H, RDW Coeff of Iam 15.8 H, Plt Count 259, MPV 11.6, Immature Gran % (Auto) 2.200 H, Neut % (Auto) 86.7 H, Lymph % (Auto) 2.0 L, [place] % (Auto) 9.1, Eos % (Auto) 0.0, Baso % (Auto) 0.0, Absolute Neuts (auto) 5.1, Absolute Lymphs (auto) 0.12 L, Nucleated RBC % 0.3, Differential Comment SCANNED, Hypochromasia 1+, Anisocytosis 2+, Ovalocytes 2+ Current Medications Acetaminophen (Acetaminophen 650 Mg Suppository) 650 mg RECTAL Q6H PRN PRN PRN Reason: Pain 1-10 or Fever Last Admin: 01/08/20 10:46 Dose: 650 mg Documented by: Aspirin (Aspirin 81 Mg Tab.Chew) 81 mg PO DAILY@0800 [facility] Last Admin: 01/08/20 10:09 Dose: Not Given Documented by: Dexamethasone Sodium Phosphate (Dexamethasone 4 Mg/Ml Vial) 6 mg IV Q24 [facility] Last Admin: 01/09/20 11:00 Dose: 6 mg Documented by: Famotidine (Famotidine 20 Mg Tablet) 20 mg PO DAILY [facility] Last Admin: 01/08/20 10:10 Dose: Not Given Documented by: Heparin Sodium (Porcine) (Heparin Injection (Vial) 5,000 Unit/Ml Vial) 5,000 unit SC Q12 [facility] Last Admin: 01/09/20 11:03 Dose: 5,000 unit Documented by: Sodium Chloride () 250 mls @ 15 mls/hr IV .[id number] PRN PRN Reason: Saline Flush Sodium Chloride () 250 mls @ 15 mls/hr IV .[id number] PRN PRN Reason: Additional IVPB Infusion Meropenem 500 mg/ Sodium (Chloride) 60 mls @ 100 mls/hr IV Q12 [facility] Last Admin: 01/09/20 11:06 Dose: 50 mls/hr Documented by: Dextrose/Sodium Chloride (Dextrose 5%/0.9% Nacl) 1,000 mls @ 60 mls/hr IV .[id number] [facility] Insulin Glargine (Insulin Glargine 100 Units/Ml Pen) 10 units SC BID [facility] Last Admin: 01/08/20 22:34 Dose: Not Given Documented by: Insulin Human Lispro (Insulin Lispro 100 Unit/Ml Insuln.Pen) 0 unit SC Q6@0400,1000,1600,2200 [facility]; Protocol Last Admin: 01/09/20 04:05 Dose: Not Given Documented by: L-Arginine/L-Glutamine/Calcium HMB (Glenn (Unflavored) Packet) [facility] Last Admin: 01/08/20 15:56 Dose: Not Given Documented by: Nutritional Formula (Lactose Free) (Glucerna Shake 120 Ml Liquid) 120 ml PO 4X/DAY [facility] Ondansetron HCl (Ondansetron 4 Mg/2 Ml Vial) 4 mg IV Q8H PRN PRN PRN Reason: NAUSEA/VOMITING Senna/Docusate Sodium (Senna/Docusate Sodium 1 Tablet) 2 tablet PO BID [facility] Last Admin: 01/08/20 22:34 Dose: Not Given Documented by: Sodium Chloride (0.9% Saline Lock 10 Ml Syringe) 10 - 40 ml IV UD PRN PRN Reason: SALINE FLUSH Last Admin: 01/09/20 11:02 Dose: 10 ml Documented by: Medical Necessity - Tobacco Use Smoking Status: Unknown if ever smoked Assessment/Plan All Active Problems (Last Updated 01/09/20 @ 06:35 by Oxana Hightower) Non-ST elevated myocardial infarction (non-STEMI) (Acute 01/06/20) COVID-19 (Acute) Pneumonia due to 2019 novel coronavirus (Acute) Elevated troponin (Acute 01/06/20) 1. Oliguric Kyle on CKD Stage 4 with underlying diabetic nephropathy, cardiorenal syndrome LVEF 20%. Acute event from [facility], COVID positive, weakness, poor intake on diuretics chronically at home for hx CHF. FeNa <1% urine sodium 12. Poor dialysis candidate, did not tolerate dialysis well on Sat, episode of afib rvr, hypotension. Hold dialysis today. Trial gentle hydration. Will try dialysis again tomorrow if creatinine worse. Hold on tunneled dialysis catheter for now. DW hospitalist and GS. 2. Acute respiratory failure off vent. Oxygenation stable on 2L NC 3. COVID positive on dexa 4. NSTEMi + troponins with nonspecific ST-T wave changes 5. 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 6. DM2 stable sugars 7. Hypotension due to cardiomyopathy 8. Elevated liver enzymes improved.
[2020-01-09] MEDS: Dextrose 5%/0.9% NaCl 1,000 ML 60 ML IV (12:26)
[2020-01-09 12:40] LABS: Bedside Glucose 98 mg/dL (70-110)
--- NOTE | 2020-01-09 13:45 | PCM.PN.PUL ---
Patient Problems: Active and Suspected Problems (Last Updated 01/09/20 @ 06:35 by Oxana Hightower) COVID-19 (Acute) Pneumonia due to 2019 novel coronavirus (Acute) Subjective: The patient was seen and examined at the bedside this morning. Events from the last 24 hours have been reviewed. The patient is currently afebrile, hemodynamically stable and maintaining appropriate oxygen saturations on 2 L/min via nasal cannula. The patient did not tolerate his last dialysis session. There are tentative plans to reattempt tomorrow. Objective: The patient's most recent lab work, culture data and imaging studies have all been personally reviewed. Surface echocardiogram from December 2018 revealed a severely dilated LV with an ejection fraction of 20%. Coronavirus PCR was positive on January 04. - Physical Exam Vitals/I&O's: Vital Signs Temp Pulse Resp BP Pulse Ox 97.9 F 77 20 H 130/71 H 98 01/09/20 08:30 01/09/20 11:00 01/09/20 08:30 01/09/20 08:30 01/09/20 08:30 Oxygen Flow Rate (L/min) 2 Oxygen Delivery Method Nasal Cannula Weight: 177 lb 11.081 oz Body Mass Index (BMI) 25.6 Intake and Output for Last 24 Hours 01/08/20 01/08/20 01/09/20 00:59 23:59 23:59 Intake Total 60 / 60 Output Total 575 / 575 Balance -515 / -515 General: Alert, Cooperative, Confused HEENT: Atraumatic, Normocephalic Oral: Moist Mucosa Neck: Supple, No Nodes, Trachea Midline Lungs: Diminished Cardiovascular: Regular rate, Regular Rhythm Abdomen: Bowel Sounds Present, Soft, Non Tender Extremities: No clubbing, No cyanosis Skin: No breakdown Musculoskeletal: No Muscle Wasting Lymphatic: No Cervical, Supraclavicular, or Inguinal Adenopathy Neurological: Neuro grossly intact Psych/Mental Status: Flat Affect Labs (Last 48 Hours) 01/07/20 01/07/20 01/08/20 18:55 21:32 03:40 WBC 11.9 H RBC 4.14 L Hgb 11.0 L Hct 35.6 L MCV 86.0 D MCH 26.6 L MCHC 30.9 L D RDW Std Deviation 49.7 H RDW Coeff of Iam 15.7 H Plt Count 297 MPV 11.5 Immature Gran % (Auto) 2.300 H Neut % (Auto) 89.1 H Lymph % (Auto) 1.3 L Holt % (Auto) 7.2 Eos % (Auto) 0.0 Baso % (Auto) 0.1 Absolute Neuts (auto) 10.6 H Absolute Lymphs (auto) 0.15 L Nucleated RBC % 0.3 Differential Comment COMMENT Platelet Estimate ADEQUATE Polychromasia RARE Hypochromasia Anisocytosis 2+ Ovalocytes 1+ Crenated Cell 2+ Schistocytes 1+ Sodium Potassium Chloride Carbon Dioxide Anion Gap BUN Creatinine Estim Creat Clear Calc Est GFR (MDRD) Af Amer Est GFR (MDRD) Non-Af BUN/Creatinine Ratio Glucose Calcium Phosphorus Magnesium Albumin POC Glucose 144 H 119 H 01/08/20 01/08/20 01/08/20 03:40 10:30 15:53 WBC RBC Hgb Hct MCV MCH MCHC RDW Std Deviation RDW Coeff of Iam Plt Count MPV Immature Gran % (Auto) Neut % (Auto) Lymph % (Auto) Holt % (Auto) Eos % (Auto) Baso % (Auto) Absolute Neuts (auto) Absolute Lymphs (auto) Nucleated RBC % Differential Comment Platelet Estimate Polychromasia Hypochromasia Anisocytosis Ovalocytes Crenated Cell Schistocytes Sodium 135 L Potassium 4.2 Chloride 99 Carbon Dioxide 24.0 Anion Gap 12 BUN 82 H Creatinine 3.85 H Estim Creat Clear Calc 15.01 Est GFR (MDRD) Af Amer 19 L Est GFR (MDRD) Non-Af 16 L BUN/Creatinine Ratio 21.3 H Glucose 79 Calcium 8.3 L Phosphorus Magnesium Albumin POC Glucose 76 94 01/08/20 01/09/20 01/09/20 22:31 03:33 06:15 WBC RBC Hgb Hct MCV MCH MCHC RDW Std Deviation RDW Coeff of Iam Plt Count MPV Immature Gran % (Auto) Neut % (Auto) Lymph % (Auto) Holt % (Auto) Eos % (Auto) Baso % (Auto) Absolute Neuts (auto) Absolute Lymphs (auto) Nucleated RBC % Differential Comment Platelet Estimate Polychromasia Hypochromasia Anisocytosis Ovalocytes Crenated Cell Schistocytes Sodium 136 Potassium 4.4 Chloride 100 Carbon Dioxide 24.0 Anion Gap BUN 102 H* Creatinine 4.04 H Estim Creat Clear Calc 14.30 Est GFR (MDRD) Af Amer 18 L Est GFR (MDRD) Non-Af 15 L BUN/Creatinine Ratio 25.2 H Glucose 93 Calcium 8.4 L Phosphorus 6.5 H Magnesium 2.7 H Albumin 2.4 L POC Glucose 94 109 01/09/20 01/09/20 06:15 12:14 WBC 5.9 RBC 4.06 L Hgb 10.9 L Hct 36.1 L MCV 88.9 MCH 26.8 L MCHC 30.2 L RDW Std Deviation 51.7 H RDW Coeff of Iam 15.8 H Plt Count 259 MPV 11.6 Immature Gran % (Auto) 2.200 H Neut % (Auto) 86.7 H Lymph % (Auto) 2.0 L Holt % (Auto) 9.1 Eos % (Auto) 0.0 Baso % (Auto) 0.0 Absolute Neuts (auto) 5.1 Absolute Lymphs (auto) 0.12 L Nucleated RBC % 0.3 Differential Comment SCANNED Platelet Estimate Polychromasia Hypochromasia 1+ Anisocytosis 2+ Ovalocytes 2+ Crenated Cell Schistocytes Sodium Potassium Chloride Carbon Dioxide Anion Gap BUN Creatinine Estim Creat Clear Calc Est GFR (MDRD) Af Amer Est GFR (MDRD) Non-Af BUN/Creatinine Ratio Glucose Calcium Phosphorus Magnesium Albumin POC Glucose 98 Microbiology 01/05/20 20:05 Urine Catheter - Catheter Urine Culture - Final Culture exhibits no growth. 01/05/20 19:00 Blood Culture (Wb) - Anticubital Right Blood Culture - Preliminary No growth in 48 hours. 01/05/20 19:00 Blood Culture (Wb) - Anticubital Left Blood Culture - Preliminary No growth in 48 hours. 01/06/20 15:20 Swab (Method) Nasal Screen MRSA/MSSA - Final Clinical Impression(s) from Imaging Studies Chest X-Ray 01/05/20 20:15 IMPRESSION: Adequate position of endotracheal tube. Adequate position of esophagogastric tube. Increasing indistinctness to the left lower lobe with increasing pleural thickening suggesting greater pleural fluid, still small volume, and increasing atelectasis.. at 2050 Reported and signed by: Carlos Hernández MD Electronically Signed: Carlos Hernández MD at 20:48 EDT Tel , Service support , Chest X-Ray 01/07/20 11:13 IMPRESSION: 1. Interval removal of endotracheal tube and nasogastric tube. 2. Interval placement of right internal jugular introducer with tip of the catheter overlying the junction of the right atrium and spur vena cava with no pneumothorax. 3. No change in tiny left pleural effusion. Electronically Signed: Denver Tamayo MD at 12:26 EDT Tel , Service support , Current Medications Acetaminophen (Acetaminophen 650 Mg Suppository) 650 mg RECTAL Q6H PRN PRN PRN Reason: Pain 1-10 or Fever Last Admin: 01/08/20 10:46 Dose: 650 mg Documented by: Aspirin (Aspirin 81 Mg Tab.Chew) 81 mg PO DAILY@0800 [facility] Last Admin: 01/09/20 11:47 Dose: Not Given Documented by: Dexamethasone Sodium Phosphate (Dexamethasone 4 Mg/Ml Vial) 6 mg IV Q24 [facility] Last Admin: 01/09/20 11:00 Dose: 6 mg Documented by: Famotidine (Famotidine 20 Mg Tablet) 20 mg PO DAILY [facility] Last Admin: 01/09/20 11:51 Dose: Not Given Documented by: Heparin Sodium (Porcine) (Heparin Injection (Vial) 5,000 Unit/Ml Vial) 5,000 unit SC Q12 [facility] Last Admin: 01/09/20 11:03 Dose: 5,000 unit Documented by: Sodium Chloride () 250 mls @ 15 mls/hr IV .[id number] PRN PRN Reason: Saline Flush Sodium Chloride () 250 mls @ 15 mls/hr IV .[id number] PRN PRN Reason: Additional IVPB Infusion Dextrose/Sodium Chloride (Dextrose 5%/0.9% Nacl) 1,000 mls @ 60 mls/hr IV .[id number] [facility] Last Admin: 01/09/20 12:26 Dose: 60 mls/hr Documented by: Insulin Glargine (Insulin Glargine 100 Units/Ml Pen) 10 units SC BID [facility] Last Admin: 01/09/20 11:50 Dose: Not Given Documented by: Insulin Human Lispro (Insulin Lispro 100 Unit/Ml Insuln.Pen) 0 unit SC Q6@0400,1000,1600,2200 [facility]; Protocol Last Admin: 01/09/20 12:26 Dose: Not Given Documented by: L-Arginine/L-Glutamine/Calcium HMB (Glenn (Unflavored) Packet) 1 packet PO BIDCM [facility] Last Admin: 01/09/20 11:47 Dose: Not Given Documented by: Nutritional Formula (Lactose Free) (Glucerna Shake 120 Ml Liquid) 120 ml PO 4X/DAY [facility] Last Admin: 01/09/20 11:47 Dose: Not Given Documented by: Ondansetron HCl (Ondansetron 4 Mg/2 Ml Vial) 4 mg IV Q8H PRN PRN PRN Reason: NAUSEA/VOMITING Senna/Docusate Sodium (Senna/Docusate Sodium 1 Tablet) 2 tablet PO BID [facility] Last Admin: 01/09/20 11:51 Dose: Not Given Documented by: Sodium Chloride (0.9% Saline Lock 10 Ml Syringe) 10 - 40 ml IV UD PRN PRN Reason: SALINE FLUSH Last Admin: 01/09/20 11:02 Dose: 10 ml Documented by: Medical Necessity - Tobacco Use Smoking Status: Unknown if ever smoked Assessment/Plan All Active Problems (Last Updated 01/09/20 @ 06:35 by Oxana Hightower) Non-ST elevated myocardial infarction (non-STEMI) (Acute 01/06/20) COVID-19 (Acute) Pneumonia due to 2019 novel coronavirus (Acute) Elevated troponin (Acute 01/06/20) RECOMMENDATIONS: 1. Continue to wean supplemental oxygen to maintain saturations at or above 90%. 2. Continue Decadron 6 mg daily. 3. Encourage incentive spirometer use and mobilize patient as tolerated. 4. Hemodialysis per nephrology recommendations. 5. Will sign off from a critical care perspective. Please call with any additional questions. IMPRESSIONS: 1. Acute hypoxic respiratory failure secondary to COVID-19 pneumonia Improving. Plan to continue current supportive measures including supplemental oxygen to maintain saturations at or above 90%. Continue Decadron 6 mg daily. Encourage incentive spirometer use and mobilize patient as tolerated. Additional hemodialysis per nephrology recommendations. 2. Acute on chronic kidney disease stage IV Patient likely has an element of worsening secondary to hypoxia and possible rhabdomyolysis. Nephrology is following to assist with hemodialysis needs. 3. Advanced age/elevated liver enzymes/poor historian-history Complicates care, management, recovery and prognosis. This note was generated with [employer] dictation software. It may contain incorrect words, spelling, and punctuation that were not noted in checking the note before signing. Inpatient E&M: 58008 Subs Hosp L2
[2020-01-09 16:06] LABS: Bedside Glucose 136 mg/dL (70-110)
--- NOTE | 2020-01-09 18:46 | PCM.PROGNOTE ---
Patient Problems: Active and Suspected Problems (Last Updated 01/09/20 @ 06:35 by Oxana Hightower) COVID-19 (Acute) Pneumonia due to 2019 novel coronavirus (Acute) Subjective: Patient was seen and examined today, he does not respond to verbal commands however and his speech is garbled. I talked briefly with nephrology about his care today, nephrology did not feel he should be dialyzed today and their plan was to give the patient fluids and recheck the labs tomorrow. Patient is currently on 2 L via nasal cannula and appears to be in no distress. - Physical Exam Vitals/I&O's: Vital Signs Temp Pulse Resp BP Pulse Ox 97.9 F 78 20 H 128/65 H 100 01/09/20 14:30 01/09/20 15:00 01/09/20 14:30 01/09/20 14:30 01/09/20 14:30 Oxygen Flow Rate (L/min) 2 Oxygen Delivery Method Nasal Cannula Weight: 80.6 kg Body Mass Index (BMI) 25.6 Intake and Output for Last 24 Hours 01/08/20 01/08/20 01/09/20 00:59 23:59 23:59 Intake Total 60 / 60 Output Total 825 / 825 Balance -765 / -765 General: Alert, No apparent distress, Confused HEENT: Atraumatic, PERRLA, EOMI, Normocephalic Oral: Moist Mucosa Neck: Supple, No JVD, Trachea Midline Lungs: Clear to auscultation, No rhonchi, No wheeze, Diminished Cardiovascular: Regular rate, Regular Rhythm, Normal S1, Normal S2, No murmurs, PMI Normal, No rub noted, No Gallop Abdomen: Bowel Sounds Present, Soft, Non Tender, Non-Distended Extremities: No clubbing, No cyanosis, Capillary Refill Less than 3 Seconds Skin: No rashes, No breakdown Musculoskeletal: No Tenderness to Palpation of Joints or Extremities Neurological: Cranial nerves II-XII grossly intact, Neuro grossly intact Psych/Mental Status: - - Patient appears confused and his speech is garbled Microbiology Past 72 Hours 01/05/20 20:05 Urine Catheter - Catheter Urine Culture - Final Culture exhibits no growth. 01/05/20 19:00 Blood Culture (Wb) - Anticubital Right Blood Culture - Preliminary No growth in 48 hours. 01/05/20 19:00 Blood Culture (Wb) - Anticubital Left Blood Culture - Preliminary No growth in 48 hours. 01/06/20 15:20 Swab (Method) Nasal Screen MRSA/MSSA - Final Laboratory Results 01/08/20 22:31: POC Glucose 94 01/09/20 03:33: POC Glucose 109 01/09/20 06:15: Sodium 136, Potassium 4.4, Chloride 100, Carbon Dioxide 24.0, BUN 102 H*, Creatinine 4.04 H, Estim Creat Clear Calc 14.30, Est GFR (MDRD) Af Amer 18 L, Est GFR (MDRD) Non-Af 15 L, BUN/Creatinine Ratio 25.2 H, Glucose 93, Calcium 8.4 L, Phosphorus 6.5 H, Magnesium 2.7 H, Albumin 2.4 L 01/09/20 06:15: WBC 5.9, RBC 4.06 L, Hgb 10.9 L, Hct 36.1 L, MCV 88.9, MCH 26.8 L, MCHC 30.2 L, RDW Std Deviation 51.7 H, RDW Coeff of Iam 15.8 H, Plt Count 259, MPV 11.6, Immature Gran % (Auto) 2.200 H, Neut % (Auto) 86.7 H, Lymph % (Auto) 2.0 L, [place] % (Auto) 9.1, Eos % (Auto) 0.0, Baso % (Auto) 0.0, Absolute Neuts (auto) 5.1, Absolute Lymphs (auto) 0.12 L, Nucleated RBC % 0.3, Differential Comment SCANNED, Hypochromasia 1+, Anisocytosis 2+, Ovalocytes 2+ 01/09/20 12:14: POC Glucose 98 01/09/20 15:58: POC Glucose 136 H Current Medications Acetaminophen (Acetaminophen 650 Mg Suppository) 650 mg RECTAL Q6H PRN PRN PRN Reason: Pain 1-10 or Fever Last Admin: 01/08/20 10:46 Dose: 650 mg Documented by: Aspirin (Aspirin 81 Mg Tab.Chew) 81 mg PO DAILY@0800 [facility] Last Admin: 01/09/20 11:47 Dose: Not Given Documented by: Dexamethasone Sodium Phosphate (Dexamethasone 4 Mg/Ml Vial) 6 mg IV Q24 [facility] Last Admin: 01/09/20 11:00 Dose: 6 mg Documented by: Famotidine (Famotidine 20 Mg Tablet) 20 mg PO DAILY [facility] Last Admin: 01/09/20 11:51 Dose: Not Given Documented by: Heparin Sodium (Porcine) (Heparin Injection (Vial) 5,000 Unit/Ml Vial) 5,000 unit SC Q12 [facility] Last Admin: 01/09/20 11:03 Dose: 5,000 unit Documented by: Sodium Chloride () 250 mls @ 15 mls/hr IV .[id number] PRN PRN Reason: Saline Flush Sodium Chloride () 250 mls @ 15 mls/hr IV .[id number] PRN PRN Reason: Additional IVPB Infusion Dextrose/Sodium Chloride (Dextrose 5%/0.9% Nacl) 1,000 mls @ 60 mls/hr IV .[id number] [facility] Last Admin: 01/09/20 12:26 Dose: 60 mls/hr Documented by: Insulin Glargine (Insulin Glargine 100 Units/Ml Pen) 10 units SC BID [facility] Last Admin: 01/09/20 11:50 Dose: Not Given Documented by: Insulin Human Lispro (Insulin Lispro 100 Unit/Ml Insuln.Pen) 0 unit SC Q6@0400,1000,1600,2200 [facility]; Protocol Last Admin: 01/09/20 17:35 Dose: Not Given Documented by: L-Arginine/L-Glutamine/Calcium HMB (Glenn (Unflavored) Packet) 1 packet PO BIDCM [facility] Last Admin: 01/09/20 17:36 Dose: Not Given Documented by: Nutritional Formula (Lactose Free) (Glucerna Shake 120 Ml Liquid) 120 ml PO 4X/DAY [facility] Last Admin: 01/09/20 17:36 Dose: Not Given Documented by: Ondansetron HCl (Ondansetron 4 Mg/2 Ml Vial) 4 mg IV Q8H PRN PRN PRN Reason: NAUSEA/VOMITING Senna/Docusate Sodium (Senna/Docusate Sodium 1 Tablet) 2 tablet PO BID [facility] Last Admin: 01/09/20 11:51 Dose: Not Given Documented by: Sodium Chloride (0.9% Saline Lock 10 Ml Syringe) 10 - 40 ml IV UD PRN PRN Reason: SALINE FLUSH Last Admin: 01/09/20 11:02 Dose: 10 ml Documented by: Medical Necessity - Tobacco Use Smoking Status: Unknown if ever smoked Assessment/Plan All Active Problems (Last Updated 01/09/20 @ 06:35 by Oxana Hightower) Non-ST elevated myocardial infarction (non-STEMI) (Acute 01/06/20) COVID-19 (Acute) Pneumonia due to 2019 novel coronavirus (Acute) Elevated troponin (Acute 01/06/20) #1 acute COVID-19 infection with pneumonia-continue present treatment, critical care signed off the patient's case today #2 acute hypoxic respiratory failure secondary to COVID-19 infection-continue to monitor oxygen #3 acute kidney injury on chronic kidney disease stage IV-again nephrology does not want to dialyze the patient, nephrology wants to try fluid administration and recheck labs. #4 confusion-probably secondary to metabolic encephalopathy due to COVID-19 infection-continue to observe #5 cerebrovascular disease #6 coronary artery disease #7 ischemic cardiomyopathy #8 elevated cardiac enzymes-etiology unclear, may be as a result of COVID-19 infection, patient has kidney failure at this time and troponin elevations are unreliable. #9 elevated liver enzymes-these are trending downward, the etiology of these liver enzyme elevations are unknown at this time. Patient remains a full code at this time Inpatient E&M: 53544 Subs Hosp L2
--- NOTE | 2020-01-09 19:46 | PCM.PN.ID ---
Patient Problems: Active and Suspected Problems (Last Updated 01/09/20 @ 06:35 by Oxana Hightower) COVID-19 (Acute) Pneumonia due to 2019 novel coronavirus (Acute) Subjective: No fever overnight, lethargic, not answering questions - Physical Exam Vitals/I&O's: Vital Signs Temp Pulse Resp BP Pulse Ox 97.9 F 70 20 H 128/65 H 100 01/09/20 14:30 01/09/20 19:21 01/09/20 14:30 01/09/20 14:30 01/09/20 14:30 Oxygen Flow Rate (L/min) 2 Oxygen Delivery Method Nasal Cannula Weight: 80.6 kg Body Mass Index (BMI) 25.6 Intake and Output for Last 24 Hours 01/08/20 01/08/20 01/09/20 00:59 23:59 23:59 Intake Total 60 / 60 Output Total 825 / 825 Balance -765 / -765 General: Lethargic Lungs: Diminished Cardiovascular: Regular rate, Regular Rhythm Abdomen: Soft, Non Tender, Non-Distended Skin: No rashes Microbiology Past 72 Hours 01/05/20 20:05 Urine Catheter - Catheter Urine Culture - Final Culture exhibits no growth. 01/05/20 19:00 Blood Culture (Wb) - Anticubital Right Blood Culture - Preliminary No growth in 48 hours. 01/05/20 19:00 Blood Culture (Wb) - Anticubital Left Blood Culture - Preliminary No growth in 48 hours. 01/06/20 15:20 Swab (Method) Nasal Screen MRSA/MSSA - Final Laboratory Results 01/08/20 22:31: POC Glucose 94 01/09/20 03:33: POC Glucose 109 01/09/20 06:15: Sodium 136, Potassium 4.4, Chloride 100, Carbon Dioxide 24.0, BUN 102 H*, Creatinine 4.04 H, Estim Creat Clear Calc 14.30, Est GFR (MDRD) Af Amer 18 L, Est GFR (MDRD) Non-Af 15 L, BUN/Creatinine Ratio 25.2 H, Glucose 93, Calcium 8.4 L, Phosphorus 6.5 H, Magnesium 2.7 H, Albumin 2.4 L 01/09/20 06:15: WBC 5.9, RBC 4.06 L, Hgb 10.9 L, Hct 36.1 L, MCV 88.9, MCH 26.8 L, MCHC 30.2 L, RDW Std Deviation 51.7 H, RDW Coeff of Iam 15.8 H, Plt Count 259, MPV 11.6, Immature Gran % (Auto) 2.200 H, Neut % (Auto) 86.7 H, Lymph % (Auto) 2.0 L, [place] % (Auto) 9.1, Eos % (Auto) 0.0, Baso % (Auto) 0.0, Absolute Neuts (auto) 5.1, Absolute Lymphs (auto) 0.12 L, Nucleated RBC % 0.3, Differential Comment SCANNED, Hypochromasia 1+, Anisocytosis 2+, Ovalocytes 2+ 01/09/20 12:14: POC Glucose 98 01/09/20 15:58: POC Glucose 136 H Current Medications Acetaminophen (Acetaminophen 650 Mg Suppository) 650 mg RECTAL Q6H PRN PRN PRN Reason: Pain 1-10 or Fever Last Admin: 01/08/20 10:46 Dose: 650 mg Documented by: Aspirin (Aspirin 81 Mg Tab.Chew) 81 mg PO DAILY@0800 [facility] Last Admin: 01/09/20 11:47 Dose: Not Given Documented by: Dexamethasone Sodium Phosphate (Dexamethasone 4 Mg/Ml Vial) 6 mg IV Q24 [facility] Last Admin: 01/09/20 11:00 Dose: 6 mg Documented by: Famotidine (Famotidine 20 Mg Tablet) 20 mg PO DAILY [facility] Last Admin: 01/09/20 11:51 Dose: Not Given Documented by: Heparin Sodium (Porcine) (Heparin Injection (Vial) 5,000 Unit/Ml Vial) 5,000 unit SC Q12 [facility] Last Admin: 01/09/20 11:03 Dose: 5,000 unit Documented by: Sodium Chloride () 250 mls @ 15 mls/hr IV .[id number] PRN PRN Reason: Saline Flush Sodium Chloride () 250 mls @ 15 mls/hr IV .[id number] PRN PRN Reason: Additional IVPB Infusion Dextrose/Sodium Chloride (Dextrose 5%/0.9% Nacl) 1,000 mls @ 60 mls/hr IV .[id number] [facility] Last Admin: 01/09/20 12:26 Dose: 60 mls/hr Documented by: Insulin Glargine (Insulin Glargine 100 Units/Ml Pen) 10 units SC BID [facility] Last Admin: 01/09/20 11:50 Dose: Not Given Documented by: Insulin Human Lispro (Insulin Lispro 100 Unit/Ml Insuln.Pen) 0 unit SC Q6@0400,1000,1600,2200 [facility]; Protocol Last Admin: 01/09/20 17:35 Dose: Not Given Documented by: L-Arginine/L-Glutamine/Calcium HMB (Glenn (Unflavored) Packet) 1 packet PO BIDCM [facility] Last Admin: 01/09/20 17:36 Dose: Not Given Documented by: Nutritional Formula (Lactose Free) (Glucerna Shake 120 Ml Liquid) 120 ml PO 4X/DAY [facility] Last Admin: 01/09/20 17:36 Dose: Not Given Documented by: Ondansetron HCl (Ondansetron 4 Mg/2 Ml Vial) 4 mg IV Q8H PRN PRN PRN Reason: NAUSEA/VOMITING Senna/Docusate Sodium (Senna/Docusate Sodium 1 Tablet) 2 tablet PO BID [facility] Last Admin: 01/09/20 11:51 Dose: Not Given Documented by: Sodium Chloride (0.9% Saline Lock 10 Ml Syringe) 10 - 40 ml IV UD PRN PRN Reason: SALINE FLUSH Last Admin: 01/09/20 11:02 Dose: 10 ml Documented by: Medical Necessity - Tobacco Use Smoking Status: Unknown if ever smoked Route of nutrition/ use of supplements: [] Nutritional Intake: [] IV Site: [] Pena Catheter: [] - Assessment/Plan Antibiotics: [] Assessment/Plan: [] Active and Suspected Problems (Last Reviewed 01/06/20 @ 01:[address] Leon Armas MD) COVID-19 (Acute) Pneumonia due to 2019 novel coronavirus (Acute) Fever, high PCT. Cxs neg. On dex. Plan on stopping meropenem tomorrow to complete empiric course. Will follow
[2020-01-09] MEDS: Glucerna Shake 120 ML LIQUID PO (20:30)
[2020-01-09] MEDS: Senna/Docusate Sodium 1 Tablet 2 TABLET PO (20:32)
[2020-01-09] MEDS: Insulin Lispro 100 UNIT/ML INSULN.PEN SC (21:07)
[2020-01-09 21:11] LABS: Bedside Glucose 158 mg/dL (70-110)
[2020-01-10] VITALS (11 sets, daily range): BP systolic 120–151; BP diastolic 64–77; PULSE 70–120; RESP 20–22; TEMP 36.1–36.6; O2SAT 95–100
[2020-01-10] MEDS: Insulin Lispro 100 UNIT/ML INSULN.PEN SC ×4 (03:19→21:53)
[2020-01-10] MEDS: Dextrose 5%/0.9% NaCl 1,000 ML 60 ML IV ×2 (03:22→20:25)
[2020-01-10 03:35] LABS: Bedside Glucose 233 mg/dL (70-110)
[2020-01-10 08:00] LABS: Albumin, Serum 2.4 g/dL (3.2-5.0); BUN 114 mg/dL (7-18); BUN/Creat Ratio 29.9 RATIO (10-20); Calcium,Total 8.2 mg/dL (8.5-10.1); Chloride 108 mmol/L (98-107); Creatinine, Serum 3.81 mg/dL (0.70-1.30); EST Glomerular Filtration Rate 16 mL/min (>60); Est Glom Filt Rate - Afr Amer 20 mL/min (>60); Estimated Creatinine Clearance 15.17 ml/min; Glucose 210 mg/dL (74-106); Phosphorus 6.2 mg/dL (2.5-4.9); Potassium 4.8 mmol/L (3.5-5.1); Sodium Level 141 mmol/L (136-145)
--- NOTE | 2020-01-10 08:35 | PN.SURG_ITS ---
Patient Problems: Active and Suspected Problems (Last Updated 01/09/20 @ 06:35 by Oxana Hightower) COVID-19 (Acute) Pneumonia due to 2019 novel coronavirus (Acute) Subjective: Cr improved to 3.8 from 4, discussed with Dr. Rivera no plans for dialysis today. Per nursing patient is confused. - Physical Exam Vitals/I&O's: Vital Signs Temp Pulse Resp BP Pulse Ox 97 F L 70 20 H 120/64 99 01/10/20 02:57 01/10/20 07:35 01/10/20 02:57 01/10/20 02:57 01/10/20 02:57 Oxygen Flow Rate (L/min) 2 Oxygen Delivery Method Nasal Cannula Weight: 178 lb 12.718 oz Body Mass Index (BMI) 25.6 Intake and Output for Last 24 Hours 01/08/20 01/09/20 01/10/20 23:59 23:59 23:59 Intake Total 60 / 60 896 / 896 Output Total 825 / 1025 425 / 425 Balance -765 / -965 471 / 471 Comment: PE not completed, +COVID, d/w nursing/reviewed chart Microbiology Past 72 Hours 01/05/20 20:05 Urine Catheter - Catheter Urine Culture - Final Culture exhibits no growth. 01/05/20 19:00 Blood Culture (Wb) - Anticubital Right Blood Culture - Preliminary No growth in 48 hours. 01/05/20 19:00 Blood Culture (Wb) - Anticubital Left Blood Culture - Prelimi nary No growth in 48 hours. 01/06/20 15:20 Swab (Method) Nasal Screen MRSA/MSSA - Final Laboratory Results 01/09/20 12:14: POC Glucose 98 01/09/20 15:58: POC Glucose 136 H 01/09/20 20:29: POC Glucose 158 H 01/10/20 03:18: POC Glucose 233 H 01/10/20 06:26: Sodium 141, Potassium 4.8, Chloride 108 H, Carbon Dioxide 22.0, BUN 114 H*, Creatinine 3.81 H, Estim Creat Clear Calc 15.17, Est GFR (MDRD) Af Amer 20 L, Est GFR (MDRD) Non-Af 16 L, BUN/Creatinine Ratio 29.9 H, Glucose 210 H, Calcium 8.2 L, Phosphorus 6.2 H, Albumin 2.4 L 01/10/20 06:26: Hemoglobin A1c 6.0 H Current Medications Acetaminophen (Acetaminophen 650 Mg Suppository) 650 mg RECTAL Q6H PRN PRN PRN Reason: Pain 1-10 or Fever Last Admin: 01/08/20 10:46 Dose: 650 mg Documented by: Aspirin (Aspirin 81 Mg Tab.Chew) 81 mg PO DAILY@0800 [facility] Last Admin: 01/09/20 11:47 Dose: Not Given Documented by: Dexamethasone Sodium Phosphate (Dexamethasone 4 Mg/Ml Vial) 6 mg IV Q24 [facility] Last Admin: 01/09/20 11:00 Dose: 6 mg Documented by: Famotidine (Famotidine 20 Mg Tablet) 20 mg PO DAILY [facility] Last Admin: 01/09/20 11:51 Dose: Not Given Documented by: Heparin Sodium (Porcine) (Heparin Injection (Vial) 5,000 Unit/Ml Vial) 5,000 unit SC Q12 [facility] Last Admin: 01/09/20 20:32 Dose: 5,000 unit Documented by: Sodium Chloride () 250 mls @ 15 mls/hr IV .[id number] PRN PRN Reason: Saline Flush Sodium Chloride () 250 mls @ 15 mls/hr IV .[id number] PRN PRN Reason: Additional IVPB Infusion Dextrose/Sodium Chloride (Dextrose 5%/0.9% Nacl) 1,000 mls @ 60 mls/hr IV .[id number] [facility] Last Admin: 01/10/20 03:22 Dose: 60 mls/hr Documented by: Insulin Glargine (Insulin Glargine 100 Units/Ml Pen) 10 units SC BID [facility] Last Admin: 01/09/20 21:07 Dose: 10 units Documented by: Insulin Human Lispro (Insulin Lispro 100 Unit/Ml Insuln.Pen) 0 unit SC Q6@0400,1000,1600,2200 [facility]; Protocol Last Admin: 01/10/20 03:19 Dose: 3 units Documented by: L-Arginine/L-Glutamine/Calcium HMB (Glenn (Unflavored) Packet) 1 packet PO BIDCM [facility] Last Admin: 01/09/20 17:36 Dose: Not Given Documented by: Nutritional Formula (Lactose Free) (Glucerna Shake 120 Ml Liquid) 120 ml PO 4X/DAY [facility] Last Admin: 01/09/20 20:30 Dose: 120 ml Documented by: Ondansetron HCl (Ondansetron 4 Mg/2 Ml Vial) 4 mg IV Q8H PRN PRN PRN Reason: NAUSEA/VOMITING Senna/Docusate Sodium (Senna/Docusate Sodium 1 Tablet) 2 tablet PO BID TORREY Last Admin: 01/09/20 20:32 Dose: 2 tablet Documented by: Sodium Chloride (0.9% Saline Lock 10 Ml Syringe) 10 - 40 ml IV UD PRN PRN Reason: SALINE FLUSH Last Admin: 01/09/20 11:02 Dose: 10 ml Documented by: Medical Necessity - Tobacco Use Smoking Status: Unknown if ever smoked Assessment/Plan All Active Problems (Last Updated 01/09/20 @ 06:35 by Oxana Hightower) Non-ST elevated myocardial infarction (non-STEMI) (Acute 01/06/20) COVID-19 (Acute) Pneumonia due to 2019 novel coronavirus (Acute) Elevated troponin (Acute 01/06/20) 84-year-old male with acute on chronic kidney disease request for dialysis catheter, Covid positive D/w Dr. Rivera, no dialysis today due to decreased Cr-- will hold off on tunnelled catheter--he may not even need one in the future/before d/c. Addendum: Did discuss with Dr. Andrade about a possible feeding tube-as patient has not been eating for 7 days, patient is not able to give consent as he has been quite confused. But previous conversations with patient with Dr. Rivera; patient was concerned about his poor quality of life as well as weakness do not believe that feeding tube would improve his quality of life. Jannet Castellanos M.D. Pager: [phone] [facility] [address] [place] [address], Outpatient [place], [address] [place] [address] Office: [phone] Inpatient E&M: [id number] [facility] Hosp L1
[2020-01-10] MEDS: Heparin Injection (Vial) 5,000 UNIT/ML VIAL 5000 UNIT SC ×2 (09:49→21:52)
[2020-01-10] MEDS: dexAMETHasone 4 MG/ML Vial 6 MG IV (09:49)
[2020-01-10] MEDS: 0.9% Saline Lock 10 ML Syringe IV (09:52)
--- NOTE | 2020-01-10 10:38 | NURSING ---
female phones in for update- update provided. Aixa states that he is normally with it one minute and confused the next, he has a form of dementia that is related to his stroke so i'm not surprised he is confused.
--- NOTE | 2020-01-10 12:22 | PCM.PN.REN ---
Patient Problems: Active and Suspected Problems (Last Updated 01/09/20 @ 06:35 by Oxana Hightower) COVID-19 (Acute) Pneumonia due to 2019 novel coronavirus (Acute) Subjective: poor historian, coughing. Disoriented. - Physical Exam Vitals/I&O's: Vital Signs Temp Pulse Resp BP Pulse Ox 98 F 77 22 H 151/70 H 99 01/10/20 09:45 01/10/20 10:14 01/10/20 09:45 01/10/20 09:45 01/10/20 09:45 Oxygen Flow Rate (L/min) 2 Oxygen Delivery Method Nasal Cannula Weight: 81.1 kg Body Mass Index (BMI) 25.6 Intake and Output for Last 24 Hours 01/08/20 01/09/20 01/10/20 23:59 23:59 23:59 Intake Total 60 / 60 896 / 896 Output Total 825 / 1025 425 / 425 Balance -765 / -965 471 / 471 General: Confused Cardiovascular: Regular rate Abdomen: Soft, Non Tender, Non-Distended Extremities: Edema Microbiology Past 72 Hours 01/05/20 20:05 Urine Catheter - Catheter Urine Culture - Final Culture exhibits no growth. 01/05/20 19:00 Blood Culture (Wb) - Anticubital Right Blood Culture - Preliminary No growth in 48 hours. 01/05/20 19:00 Blood Culture (Wb) - Anticubital Left Blood Culture - Preliminary No growth in 48 hours. 01/06/20 15:20 Swab (Method) Nasal Screen MRSA/MSSA - Final Laboratory Results 01/09/20 12:14: POC Glucose 98 01/09/20 15:58: POC Glucose 136 H 01/09/20 20:29: POC Glucose 158 H 01/10/20 03:18: POC Glucose 233 H 01/10/20 06:26: Sodium 141, Potassium 4.8, Chloride 108 H, Carbon Dioxide 22.0, BUN 114 H*, Creatinine 3.81 H, Estim Creat Clear Calc 15.17, Est GFR (MDRD) Af Amer 20 L, Est GFR (MDRD) Non-Af 16 L, BUN/Creatinine Ratio 29.9 H, Glucose 210 H, Calcium 8.2 L, Phosphorus 6.2 H, Albumin 2.4 L 11/03/20 06:26: Hemoglobin A1c 6.0 H Current Medications Acetaminophen (Acetaminophen 650 Mg Suppository) 650 mg RECTAL Q6H PRN PRN PRN Reason: Pain 1-10 or Fever Last Admin: 01/08/20 10:46 Dose: 650 mg Documented by: Aspirin (Aspirin 81 Mg Tab.Chew) 81 mg PO DAILY@0800 [facility] Last Admin: 01/10/20 09:33 Dose: Not Given Documented by: Dexamethasone Sodium Phosphate (Dexamethasone 4 Mg/Ml Vial) 6 mg IV Q24 [facility] Last Admin: 01/10/20 09:49 Dose: 6 mg Documented by: Famotidine (Famotidine 20 Mg Tablet) 20 mg PO DAILY [facility] Last Admin: 01/10/20 09:32 Dose: Not Given Documented by: Heparin Sodium (Porcine) (Heparin Injection (Vial) 5,000 Unit/Ml Vial) 5,000 unit SC Q12 [facility] Last Admin: 01/10/20 09:49 Dose: 5,000 unit Documented by: Sodium Chloride () 250 mls @ 15 mls/hr IV .[id number] PRN PRN Reason: Saline Flush Sodium Chloride () 250 mls @ 15 mls/hr IV .[id number] PRN PRN Reason: Additional IVPB Infusion Dextrose/Sodium Chloride (Dextrose 5%/0.9% Nacl) 1,000 mls @ 60 mls/hr IV .[id number] [facility] Last Admin: 01/10/20 03:22 Dose: 60 mls/hr Documented by: Insulin Glargine (Insulin Glargine 100 Units/Ml Pen) 10 units SC BID [facility] Last Admin: 01/10/20 09:33 Dose: Not Given Documented by: Insulin Human Lispro (Insulin Lispro 100 Unit/Ml Insuln.Pen) 0 unit SC Q6@0400,1000,1600,2200 [facility]; Protocol Last Admin: 01/10/20 11:01 Dose: 2 units Documented by: L-Arginine/L-Glutamine/Calcium HMB ([facility]enn (Unflavored) [facility]) [facility] Last Admin: 01/10/20 09:33 Dose: Not Given Documented by: Nutritional Formula (Lactose Free) (Glucerna Shake 120 Ml Liquid) 120 ml PO 4X/DAY [facility] Last Admin: 01/10/20 09:32 Dose: Not Given Documented by: Ondansetron HCl (Ondansetron 4 Mg/2 Ml Vial) 4 mg IV Q8H PRN PRN PRN Reason: NAUSEA/VOMITING Senna/Docusate Sodium (Senna/Docusate Sodium 1 Tablet) 2 tablet PO BID [facility] Last Admin: 01/10/20 09:34 Dose: Not Given Documented by: Sodium Chloride (0.9% Saline Lock 10 Ml Syringe) 10 - 40 ml IV UD PRN PRN Reason: SALINE FLUSH Last Admin: 01/10/20 09:52 Dose: 10 ml Documented by: Medical Necessity - Tobacco Use Smoking Status: Unknown if ever smoked Assessment/Plan All Active Problems (Last Updated 01/09/20 @ 06:35 by Oxana Hightower) Non-ST elevated myocardial infarction (non-STEMI) (Acute 01/06/20) COVID-19 (Acute) Pneumonia due to 2019 novel coronavirus (Acute) Elevated troponin (Acute 01/06/20) 1. Oliguric Kyle on CKD Stage 4 with underlying diabetic nephropathy, cardiorenal syndrome LVEF 20%. Acute event from ATN, COVID positive, weakness, poor intake on diuretics chronically at home for hx CHF. Creatinine improved to 3.8 today with increased urine output with iv fluids. Edema from dexa. Continue to monitor for renal recovery with iv fluids. Hold dialysis and tunneled catheter today. DW GS. 2. Acute respiratory failure off vent. Oxygenation stable on 2L NC 3. COVID positive on dexa 4. NSTEMi + troponins with nonspecific ST-T wave changes 5. 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 6. DM2 primary care mgmt
[2020-01-10 15:01] LABS: Bedside Glucose 210 mg/dL (70-110)
[2020-01-10 17:20] LABS: Bedside Glucose 232 mg/dL (70-110)
--- NOTE | 2020-01-10 19:00 | PN_ITS ---
Patient Problems: Active and Suspected Problems (Last Updated 01/09/20 @ 06:35 by Oxana Hightower) COVID-19 (Acute) Pneumonia due to 2019 novel coronavirus (Acute) Subjective: Patient is seen and examined today-he appears unwell and fatigued, he is not able to carry on a conversation with me and is confused. I talked at length wit h his by phone today as well as his daughter who is a nurse, they thought the patient was a DNR CC arrest-I change this in the computer because he was a full code-and they would like all measures done for now until they have a family discussion. I told them that I was concerned because the patient was unable to eat for the past several days, I talked informally with Dr. Booth and she stated she would not put a feeding tube in the patient because of his poor medical condition. Also talked briefly with Dr. Rivera concerning his care. - Physical Exam Vitals/I&O's: Vital Signs Temp Pulse Resp BP Pulse Ox 97.1 F L 74 22 H 140/68 H 100 01/10/20 14:55 01/10/20 15:00 01/10/20 14:55 01/10/20 14:55 01/10/20 14:55 Oxygen Flow Rate (L/min) 2 Oxygen Delivery Method Nasal Cannula Weight: 81.1 kg Body Mass Index (BMI) 25.6 Intake and Output for Last 24 Hours 01/08/20 01/09/20 01/10/20 23:59 23:59 23:59 Intake Total 60 / 60 896 / 896 Output Total 825 / 1025 800 / 800 Balance -765 / -965 96 / 96 General: Confused, Lethargic HEENT: Atraumatic, PERRLA, EOMI, Normocephalic Neck: Supple, No JVD, Trachea Midline, Thyroid Normal Size and Texture Lungs: Clear to auscultation, No rhonchi, No wheeze, No rales, Diminished Cardiovascular: Regular rate, Regular Rhythm, Normal S1, Normal S2, No murmurs, PMI Normal, No rub noted, No Gallop Abdomen: Bowel Sounds Present, Soft, Non Tender, Non-Distended, No hernias noted Extremities: No clubbing, No cyanosis, No edema, Capillary Refill Less than 3 Seconds Skin: No rashes, No breakdown Musculoskeletal: No Tenderness to Palpation of Joints or Extremities Neurological: Cranial nerves II-XII grossly intact, Neuro grossly intact Psych/Mental Status: - - Patient is lethargic and confused, he appears unwell Microbiology Past 72 Hours 01/05/20 20:05 Urine Catheter - Catheter Urine Culture - Final Culture exhibits no growth. 01/05/20 19:00 Blood Culture (Wb) - Anticubital Right Blood Culture - Preliminary No growth in 48 hours. 01/05/20 19:00 Blood Culture (Wb) - Anticubital Left Blood Culture - Preliminary No growth in 48 hours. 01/06/20 15:20 Swab (Method) Nasal Screen MRSA/MSSA - Final Laboratory Results 01/09/20 20:29: POC Glucose 158 H 01/10/20 03:18: POC Glucose 233 H 01/10/20 06:26: Sodium 141, Potassium 4.8, Chloride 108 H, Carbon Dioxide 22.0, BUN 114 H*, Creatinine 3.81 H, Estim Creat Clear Calc 15.17, Est GFR (MDRD) Af Amer 20 L, Est GFR (MDRD) Non-Af 16 L, BUN/Creatinine Ratio 29.9 H, Glucose 210 H, Calcium 8.2 L, Phosphorus 6.2 H, Albumin 2.4 L 01/10/20 06:26: Hemoglobin A1c 6.0 H 01/10/20 11:00: POC Glucose 210 H 01/10/20 16:29: POC Glucose 232 H Current Medications Acetaminophen (Acetaminophen 650 Mg Suppository) 650 mg RECTAL Q6H PRN PRN PRN Reason: Pain 1-10 or Fever Last Admin: 01/08/20 10:46 Dose: 650 mg Documented by: Aspirin (Aspirin 81 Mg Tab.Chew) 81 mg PO DAILY@0800 [facility] Last Admin: 01/10/20 09:33 Dose: Not Given Documented by: Dexamethasone Sodium Phosphate (Dexamethasone 4 Mg/Ml Vial) 6 mg IV Q24 [facility] Last Admin: 01/10/20 09:49 Dose: 6 mg Documented by: Famotidine (Famotidine 20 Mg Tablet) 20 mg PO DAILY [facility] Last Admin: 01/10/20 09:32 Dose: Not Given Documented by: Heparin Sodium (Porcine) (Heparin Injection (Vial) 5,000 Unit/Ml Vial) 5,000 unit SC Q12 [facility] Last Admin: 01/10/20 09:49 Dose: 5,000 unit Documented by: Sodium Chloride () 250 mls @ 15 mls/hr IV .[id number] PRN PRN Reason: Saline Flush Sodium Chloride () 250 mls @ 15 mls/hr IV .[id number] PRN PRN Reason: Additional IVPB Infusion Dextrose/Sodium Chloride (Dextrose 5%/0.9% Nacl) 1,000 mls @ 60 mls/hr IV . [id number] [facility] Last Admin: 01/10/20 03:22 Dose: 60 mls/hr Documented by: Insulin Glargine (Insulin Glargine 100 Units/Ml Pen) 10 units SC BID [facility] Last Admin: 01/10/20 09:33 Dose: Not Given Documented by: Insulin Human Lispro (Insulin Lispro 100 Unit/Ml Insuln.Pen) 0 unit SC Q6@0400,1000,1600,2200 [facility]; Protocol Last Admin: 01/10/20 16:31 Dose: 3 units Documented by: L-Arginine/L-Glutamine/Calcium HMB (Glenn (Unflavored) [facility]) [facility] Last Admin: 01/10/20 16:31 Dose: Not Given Documented by: Ondansetron HCl (Ondansetron 4 Mg/2 Ml Vial) 4 mg IV Q8H PRN PRN PRN Reason: NAUSEA/VOMITING Senna/Docusate Sodium (Senna/Docusate Sodium 1 Tablet) 2 tablet PO BID [facility] Last Admin: 01/10/20 09:34 Dose: Not Given Documented by: Sodium Chloride (0.9% Saline Lock 10 Ml Syringe) 10 - 40 ml IV UD PRN PRN Reason: SALINE FLUSH Last Admin: 01/10/20 09:52 Dose: 10 ml Documented by: Medical Necessity - Tobacco Use Smoking Status: Unknown if ever smoked Assessment/Plan All Active Problems (Last Updated 01/09/20 @ 06:35 by Oxana Hightower) Non-ST elevated myocardial infarction (non-STEMI) (Acute 01/06/20) COVID-19 (Acute) Pneumonia due to 2019 novel coronavirus (Acute) Elevated troponin (Acute 01/06/20) #1 acute COVID-19 infection with pneumonia-continue present treatment #2 acute hypoxic respiratory failure secondary to COVID-19 infection-continue to monitor oxygen, patient remains on low-flow oxygen #3 acute kidney injury on chronic kidney disease stage IV-again nephrology does not want to dialyze the patient, nephrology wants to try fluid administration and recheck labs. #4 confusion-probably secondary to metabolic encephalopathy due to COVID-19 infection-continue to observe, prognosis remains poor, patient is unable to eat #5 cerebrovascular disease #6 coronary artery disease #7 ischemic cardiomyopathy #8 elevated cardiac enzymes-etiology unclear, may be as a result of COVID-19 infection, patient has kidney failure at this time and troponin elevations are unreliable. #9 elevated liver enzymes-these are trending downward, the etiology of these liver enzyme elevations are unknown at this time. Patient is a DNR CC arrest no intubation, I will talk further with the patient's family tomorrow Inpatient E&M: [id number] Subs Hosp L2
[2020-01-10 22:26] LABS: Bedside Glucose 223 mg/dL (70-110)
[2020-01-11] VITALS (8 sets, daily range): BP systolic 122–134; BP diastolic 61–73; PULSE 69–78; RESP 20–24; TEMP 35.8–36.4; O2SAT 90–98; BMI 25.9
[2020-01-11] MEDS: Insulin Lispro 100 UNIT/ML INSULN.PEN SC ×4 (04:14→21:56)
[2020-01-11 04:26] LABS: Bedside Glucose 203 mg/dL (70-110)
[2020-01-11 07:20] LABS: Albumin, Serum 2.3 g/dL (3.2-5.0); BUN 112 mg/dL (7-18); BUN/Creat Ratio 31.9 RATIO (10-20); Calcium,Total 8.5 mg/dL (8.5-10.1); Chloride 114 mmol/L (98-107); Creatinine, Serum 3.51 mg/dL (0.70-1.30); EST Glomerular Filtration Rate 18 mL/min (>60); Est Glom Filt Rate - Afr Amer 22 mL/min (>60); Estimated Creatinine Clearance 16.46 ml/min; Glucose 218 mg/dL (74-106); Phosphorus 5.1 mg/dL (2.5-4.9); Potassium 4.4 mmol/L (3.5-5.1); Sodium Level 146 mmol/L (136-145)
[2020-01-11] MEDS: Heparin Injection (Vial) 5,000 UNIT/ML VIAL 5000 UNIT SC ×2 (09:23→21:57)
[2020-01-11] MEDS: dexAMETHasone 4 MG/ML Vial 6 MG IV (09:23)
[2020-01-11] MEDS: 0.9% Saline Lock 10 ML Syringe IV (09:25)
--- NOTE | 2020-01-11 10:06 | NURSING ---
This nurse spoke with Dr Vences concerning patient's condition and lack of improvement including continued confusion and an inability to consistently be alert enough to eat. With this context Dr Vences was inquiring about the possibility of allowing support people in to the building to visit with patient. This nurse contacted the patients spouse, Aixa. This nurse inquired about whether Aixa had spoken to Dr Vences last evening regarding patient's status. She stated that she had spoken to Dr Ann last evening and was aware of the patient's current condition and lack of progression. She stated that she is not ready to give up on the patient yet and that Dr Vences had mentioned a possibility of allowing visitation. This nurse informed Aixa of the possibility of allowing accommodations for visitation from support people in special circumstances such as end of life situations. This nurse informed Aixa of the inherent risks associated with visiting a patient with an acute diagnosis of COVID-19 (Aixa stated her daughter Nathalia was listening to the call as well and this nurse was able to hear Nathalia faintly in the background as well). This nurse informed Aixa that any visitors would need to ensure that they follow guidelines for PPE use. This nurse continued to ask Aixa about exposure to COVID-19, Aixa mentioned that she and Nathalia both tested positive for COVID-19. Their test was collected Friday 01/05 and results were received Monday 01/08. Informed Aixa that this may make visitation challenging and case would be discussed with cultural anthropology professor.
[2020-01-11] MEDS: Dextrose 5%/0.9% NaCl 1,000 ML 60 ML IV (10:41)
[2020-01-11 11:15] LABS: Bedside Glucose 173 mg/dL (70-110)
--- NOTE | 2020-01-11 12:05 | PCM.NTREPORT ---
Nutrition Therapy Report - History Nutrition Services has been consulted to:: Manage nutrient details of diet order Current diet / nutrition support order:: NPO; Glenn BID - Anthropometric Measurements Height:: 5 ft 10 in Weight:: 82.1 kg Body Mass Index (BMI):: 25.9 - Relevant Labs Relevant Labs:: WBC 11.9 K/mm3 (4.4-11.0) H 01/08/20 03:40 RBC 4.06 M/mm3 (4.6-6.2) L 01/09/20 06:15 Hgb 10.9 g/dL (13.0-16.5) L 01/09/20 06:15 Hct 36.1 % (40-54) L 01/09/20 06:15 MCH 26.8 pg (27.0-32.0) L 01/09/20 06:15 MCHC 30.2 g/dL (32-36) L 01/09/20 06:15 RDW Std Deviation 51.7 fl (35.1-43.9) H 01/09/20 06:15 RDW Coeff of Iam 15.8 % (11.6-14.6) H 01/09/20 06:15 Immature Gran % (Auto) 2.200 % (0.0-0.9) H 01/09/20 06:15 Neut % (Auto) 86.7 % (47-70) H 01/09/20 06:15 Lymph % (Auto) 2.0 % (19-41) L 01/09/20 06:15 [place] % (Auto) 12.2 % (0-10) H 01/05/20 19:00 Absolute Neuts (auto) 10.6 X10^3/uL (2.0-7.7) H 01/08/20 03:40 Absolute Lymphs (auto) 0.12 X10^3/uL (0.83-4.51) L 01/09/20 06:15 Neutrophils % (Manual) 88 % (47-70) H 01/06/20 03:30 Lymphocytes % (Manual) 1 % (19-41) L 01/06/20 03:30 Metamyelocytes % 2 % (0-1) H 01/06/20 03:30 PT 17.0 SECONDS (11.7-14.9) H 01/05/20 19:00 APTT 148.8 Seconds (24.1-36.2) H* 01/06/20 10:20 Sodium 146 mmol/L (136-145) H 01/11/20 06:34 Chloride 114 mmol/L (98-107) H 01/11/20 06:34 BUN 112 mg/dL (7-18) H* 01/11/20 06:34 Creatinine 3.51 mg/dL (0.70-1.30) H 01/11/20 06:34 Est GFR (MDRD) Af Amer 22 mL/min (>60) L 01/11/20 06:34 Est GFR (MDRD) Non-Af 18 mL/min (>60) L 01/11/20 06:34 BUN/Creatinine Ratio 31.9 RATIO (10-20) H 01/11/20 06:34 Glucose 218 mg/dL (74-106) H 01/11/20 06:34 Hemoglobin A1c 6.0 % (3.8-5.6) H 01/10/20 06:26 Calcium 8.2 mg/dL (8.5-10.1) L 01/10/20 06:26 Phosphorus 5.1 mg/dL (2.5-4.9) H 01/11/20 06:34 Magnesium 2.7 mg/dL (1.6-2.6) H 01/09/20 06:15 Total Bilirubin 1.20 mg/dL (0.20-1.00) H 01/06/20 03:30 AST 43 U/L (15-37) H 01/07/20 03:00 ALT 83 U/L (16-61) H 01/07/20 03:00 Alkaline Phosphatase 123 U/L (45-117) H 01/06/20 03:30 Troponin I 3.660 ng/mL (<0.045) H* 01/06/20 05:57 Total Protein 5.5 g/dL (6.4-8.2) L 01/07/20 03:00 Albumin 2.3 g/dL (3.2-5.0) L 01/11/20 06:34 Albumin/Globulin Ratio 0.8 RATIO (0.9-2.4) L 01/07/20 03:00 Procalcitonin 11.53 ng/mL (0.00-0.09) H 01/06/20 01:00 - Assessment Food / Nutrition-Related History:: Pt remains in isolation d/t COVID-19. Per nursing report, pt confused. CONTACT CENTER ANALYST working w/ pt- unable to tolerate PO intake. Has been largely NPO since 01/04 admission. IV fluids started. Wt increase of 1 kg since admission. Has bilat hands 2+ pitting and LUE pitting edema. Per EMR, has asked about PEG placement. - Nutrition Diagnosis Problem / Etiology / Signs & Symptoms (PES):: Inadequate oral intake related to aspiration, mentation as evidenced by PO intake meeting less than 50% of pt's estimated PO needs for ~1 week. - Food / Nutrient Delivery Interventions Summary of nutrition intervention:: Will d/c Gelnn BID d/t NPO status. Significant risk for malnutrition given inadequate PO intake. Suspect significant wt loss masked by edema. Nutrition support likely warranted if pt/family to continue to pursue aggressive care- consult RDN for further recommendations/management as indicated. - MNT Monitoring Further MNT monitoring and evaluation required?: Yes MNT Follow-up in:: 1-2 days
--- NOTE | 2020-01-11 13:30 | PN.RENAL_ITS ---
Patient Problems: Active and Suspected Problems (Last Updated 01/09/20 @ 06:35 by Oxana Hightower) COVID-19 (Acute) Pneumonia due to 2019 novel coronavirus (Acute) Subjective: clinically unchanged, encephalopathic, poor historian, awake but not answering questions. - Physical Exam Vitals/I&O's: Vital Signs Temp Pulse Resp BP Pulse Ox 96.4 F L 78 24 H 134/73 H 90 01/11/20 09:19 01/11/20 09:19 01/11/20 09:19 01/11/20 09:19 01/11/20 10:50 Oxygen Flow Rate (L/min) 2 Oxygen Delivery Method Nasal Cannula Weight: 82.1 kg Body Mass Index (BMI) 25.9 Intake and Output for Last 24 Hours 01/09/20 01/10/20 01/11/20 23:59 23:59 23:59 Intake Total 60 / 60 2015 / 2015 1096 / 1096 Output Total 825 / 1025 1000 / 1000 725 / 725 Balance -765 / -965 1016 / 1016 371 / 371 General: Confused, - - awake Cardiovascular: Regular rate Extremities: Edema Neurological: - - ? facial droop Psych/Mental Status: - - confused Microbiology Past 72 Hours 01/05/20 19:00 Blood Culture (Wb) - Anticubital Right Blood Culture - Final No growth in 5 days. 01/05/20 19:00 Blood Culture (Wb) - Anticubital Left Blood Culture - Final No growth in 5 days. 01/05/20 20:05 Urine Catheter - Catheter Urine Culture - Final Culture exhibits no growth. 01/06/20 15:20 Swab (Method) Nasal Screen MRSA/MSSA - Final Laboratory Results 01/10/20 11:00: POC Glucose 210 H 01/10/20 16:29: POC Glucose 232 H 01/10/20 21:46: POC Glucose 223 H 01/11/20 04:12: POC Glucose 203 H 01/11/20 06:34: Sodium 146 H, Potassium 4.4, Chloride 114 H, Carbon Dioxide 22.0, BUN 112 H*, Creatinine 3.51 H, Estim Creat Clear Calc 16.46, Est GFR (MDRD) Af Amer 22 L, Est GFR (MDRD) Non-Af 18 L, BUN/Creatinine Ratio 31.9 H, Glucose 218 H, Calcium 8.5, Phosphorus 5.1 H, Albumin 2.3 L 01/11/20 10:37: POC Glucose 173 H Current Medications Acetaminophen (Acetaminophen 650 Mg Suppository) 650 mg RECTAL Q6H PRN PRN PRN Reason: Pain 1-10 or Fever Last Admin: 01/08/20 10:46 Dose: 650 mg Documented by: Aspirin (Aspirin 81 Mg Tab.Chew) 81 mg PO DAILY@0800 [facility] Last Admin: 01/11/20 09:15 Dose: Not Given Documented by: Dexamethasone Sodium Phosphate (Dexamethasone 4 Mg/Ml Vial) 6 mg IV Q24 [facility] Last Admin: 01/11/20 09:23 Dose: 6 mg Documented by: Famotidine (Famotidine 20 Mg Tablet) 20 mg PO DAILY [facility] Last Admin: 01/11/20 09:24 Dose: Not Given Documented by: Heparin Sodium (Porcine) (Heparin Injection (Vial) 5,000 Unit/Ml Vial) 5,000 unit SC Q12 [facility] Last Admin: 01/11/20 09:23 Dose: 5,000 unit Documented by: Sodium Chloride () 250 mls @ 15 mls/hr IV .[id number] PRN PRN Reason: Saline Flush Sodium Chloride () 250 mls @ 15 mls/hr IV .[id number] PRN PRN Reason: Additional IVPB Infusion Dextrose/Sodium Chloride (Dextrose 5%/0.9% Nacl) 1,000 mls @ 60 mls/hr IV .[id number] [facility] Last Admin: 01/11/20 10:41 Dose: 60 mls/hr Documented by: Insulin Glargine (Insulin Glargine 100 Units/Ml Pen) 10 units SC BID [facility] Last Admin: 01/11/20 10:40 Dose: 10 units Documented by: Insulin Human Lispro (Insulin Lispro 100 Unit/Ml Insuln.Pen) 0 unit SC Q6@0400,1000,1600,2200 [facility]; Protocol Last Admin: 01/11/20 10:38 Dose: 1 units Documented by: Ondansetron HCl (Ondansetron 4 Mg/2 Ml Vial) 4 mg IV Q8H PRN PRN PRN Reason: NAUSEA/VOMITING Senna/Docusate Sodium (Senna/Docusate Sodium 1 Tablet) 2 tablet PO BID [facility] Last Admin: 01/11/20 09:24 Dose: Not Given Documented by: Sodium Chloride (0.9% Saline Lock 10 Ml Syringe) 10 - 40 ml IV UD PRN PRN Reason: SALINE FLUSH Last Admin: 01/11/20 09:25 Dose: 10 ml Documented by: Medical Necessity - Tobacco Use Smoking Status: Unknown if ever smoked Assessment/Plan All Active Problems (Last Updated 01/09/20 @ 06:35 by Oxana Hightower) Non-ST elevated myocardial infarction (non-STEMI) (Acute 01/06/20) COVID-19 (Acute) Pneumonia due to 2019 novel coronavirus (Acute) Elevated troponin (Acute 01/06/20) 1. 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 Remains NPO due to aspiration risk, debilitated. . Continue to monitor for renal recovery with iv fluids. Hold dialysis today. 2. Edema from dexa, hypoalbuminemia. 3. COVID positive on dexa 4. NSTEMi + troponins with nonspecific ST-T wave changes 5. 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 6. DM2 primary care mgmt 7. Encephalopathy 8. Hypernatremia with no access to water. Change ivf to d51/2NS.
--- NOTE | 2020-01-11 13:40 | NURSING ---
This nurse initiated phone call to patient's (Aixa). During the conversation this nurse spoke to Aixa who included patient's daughter (Nathalia) and granddaughter in conversations. This nurse informed patient's spouse of speech therapists' assessment and inability to provide oral intake related to patient's inability to safely pass a swallow evaluation. This nurse described confusion, alertness, and inability to follow directions appropriately to patient as the reasons that the patient is not able to pass the swallow evaluation and receive orders for oral intake. Patient's spouse verbalized understanding stating that I just want him to be comfortable, until his heart stops. Discussed opportunity to allow visitation considering patient's current condition. Discussed visitation with machine preservative filler who validated the appriateness with the [facility]. Coordinated visitation to occur at 1530 and family members will be escorted by patient advocate Eze.
--- NOTE | 2020-01-11 14:52 | NURSING ---
O2 DECREASED TO 1L NC - WILL MONITOR
[2020-01-11] MEDS: Dext 5%-0.45% NS 1,000 ML 60 ML IV (15:00)
--- NOTE | 2020-01-11 15:04 | NURSING ---
CRYSTAL Kirk states the Mepilex dressing is intact to the sacrum. will leave in place at this time.
--- NOTE | 2020-01-11 17:03 | PCM.PN.ID ---
Patient Problems: Active and Suspected Problems (Last Updated 01/09/20 @ 06:35 by Oxana Hightower) COVID-19 (Acute) Pneumonia due to 2019 novel coronavirus (Acute) Subjective: Sleeping, no fever - Physical Exam Vitals/I&O's: Vital Signs Temp Pulse Resp BP Pulse Ox 97.1 F L 72 24 H 126/70 H 97 01/11/20 14:53 01/11/20 14:53 01/11/20 14:53 01/11/20 14:53 01/11/20 14:53 Oxygen Flow Rate (L/min) 1 Oxygen Delivery Method Nasal Cannula Weight: 82.1 kg Body Mass Index (BMI) 25.9 Intake and Output for Last 24 Hours 01/09/20 01/10/20 01/11/20 23:59 23:59 23:59 Intake Total 60 / 60 2015 / 2015 1355 / 1355 Output Total 825 / 1025 1000 / 1000 725 / 725 Balance -765 / -965 1016 / 1016 630 / 630 General: No apparent distress Lungs: Diminished Cardiovascular: Regular rate, Regular Rhythm Abdomen: Soft, Non Tender, Non-Distended Skin: No rashes Microbiology Past 72 Hours 01/05/20 19:00 Blood Culture (Wb) - Anticubital Right Blood Culture - Final No growth in 5 days. 01/05/20 19:00 Blood Culture (Wb) - Anticubital Left Blood Culture - Final No growth in 5 days. Laboratory Results 01/10/20 16:29: POC Glucose 232 H 01/10/20 21:46: POC Glucose 223 H 01/11/20 04:12: POC Glucose 203 H 01/11/20 06:34: Sodium 146 H, Potassium 4.4, Chloride 114 H, Carbon Dioxide 22.0, BUN 112 H*, Creatinine 3.51 H, Estim Creat Clear Calc 16.46, Est GFR (MDRD) Af Amer 22 L, Est GFR (MDRD) Non-Af 18 L, BUN/Creatinine Ratio 31.9 H, Glucose 218 H, Calcium 8.5, Phosphorus 5.1 H, Albumin 2.3 L 01/11/20 10:37: POC Glucose 173 H Current Medications Acetaminophen (Acetaminophen 650 Mg Suppository) 650 mg RECTAL Q6H PRN PRN PRN Reason: Pain 1-10 or Fever Last Admin: 01/08/20 10:46 Dose: 650 mg Documented by: Aspirin (Aspirin 81 Mg Tab.Chew) 81 mg PO DAILY@0800 [facility] Last Admin: 01/11/20 09:15 Dose: Not Given Documented by: Dexamethasone Sodium Phosphate (Dexamethasone 4 Mg/Ml Vial) 6 mg IV Q24 [facility] Last Admin: 01/11/20 09:23 Dose: 6 mg Documented by: Famotidine (Famotidine 20 Mg Tablet) 20 mg PO DAILY [facility] Last Admin: 01/11/20 09:24 Dose: Not Given Documented by: Heparin Sodium (Porcine) (Heparin Injection (Vial) 5,000 Unit/Ml Vial) 5,000 unit SC Q12 [facility] Last Admin: 01/11/20 09:23 Dose: 5,000 unit Documented by: Sodium Chloride () 250 mls @ 15 mls/hr IV .[id number] PRN PRN Reason: Saline Flush Sodium Chloride () 250 mls @ 15 mls/hr IV .[id number] PRN PRN Reason: Additional IVPB Infusion Dextrose/Sodium Chloride () 1,000 mls @ 60 mls/hr IV .[id number] [facility] Last Admin: 01/11/20 15:00 Dose: 60 mls/hr Documented by: Insulin Glargine (Insulin Glargine 100 Units/Ml Pen) 10 units SC BID [facility] Last Admin: 01/11/20 10:40 Dose: 10 units Documented by: Insulin Human Lispro (Insulin Lispro 100 Unit/Ml Insuln.Pen) 0 unit SC Q6@0400,1000,1600,2200 [facility]; Protocol Last Admin: 01/11/20 10:38 Dose: 1 units Documented by: Ondansetron HCl (Ondansetron 4 Mg/2 Ml Vial) 4 mg IV Q8H PRN PRN PRN Reason: NAUSEA/VOMITING Senna/Docusate Sodium (Senna/Docusate Sodium 1 Tablet) 2 tablet PO BID [facility] Last Admin: 01/11/20 09:24 Dose: Not Given Documented by: Sodium Chloride (0.9% Saline Lock 10 Ml Syringe) 10 - 40 ml IV UD PRN PRN Reason: SALINE FLUSH Last Admin: 01/11/20 09:25 Dose: 10 ml Documented by: Medical Necessity - Tobacco Use Smoking Status: Unknown if ever smoked Route of nutrition/ use of supplements: [] Nutritional Intake: [] IV Site: [] Pena Catheter: [] - Assessment/Plan Antibiotics: [] Assessment/Plan: [] Active and Suspected Problems (Last Reviewed 01/06/20 @ 01:[address] Leon Armas MD) COVID-19 (Acute) Pneumonia due to 2019 novel coronavirus (Acute) Fever, high PCT on arrival. Cxs neg. On dex. Off meropenem. On 2L. Ok for dispo planning to complete 10 days total of dex. Will follow
[2020-01-11 17:30] LABS: Bedside Glucose 193 mg/dL (70-110)
--- NOTE | 2020-01-11 18:08 | PN_ITS ---
Patient Problems: Active and Suspected Problems (Last Updated 01/09/20 @ 06:35 by Oxana Hightower) COVID-19 (Acute) Pneumonia due to 2019 novel coronavirus (Acute) Subjective: Patient was seen and examined today, he appears more alert but is too lethargic to eat still. His family members came in today and saw him in the room-his d rlhter is Covid positive as is his . Patient's IV fluid was changed today, I talked briefly with nephrology about increasing the rate and we are going to increase the rate to 80 cc an hour at least till tomorrow and reevaluate the patient. - Physical Exam Vitals/I&O's: Vital Signs Temp Pulse Resp BP Pulse Ox 97.1 F L 72 24 H 126/70 H 97 01/11/20 14:53 01/11/20 14:53 01/11/20 14:53 01/11/20 14:53 01/11/20 14:53 Oxygen Flow Rate (L/min) 1 Oxygen Delivery Method Nasal Cannula Weight: 82.1 kg Body Mass Index (BMI) 25.9 Intake and Output for Last 24 Hours 01/09/20 01/10/20 01/11/20 23:59 23:59 23:59 Intake Total 60 / 60 2015 / 2015 1355 / 1355 Output Total 825 / 1025 1000 / 1000 725 / 725 Balance -765 / -965 1016 / 1016 630 / 630 General: Alert, No apparent distress, Well developed, Lethargic HEENT: Atraumatic, PERRLA, EOMI, Normocephalic Oral: Dry Mucosa Neck: Supple, No JVD, Trachea Midline, Thyroid Normal Size and Texture Lungs: Clear to auscultation, Normal air movement, No rhonchi, No wheeze Cardiovascular: Regular rate, Regular Rhythm, Normal S1, Normal S2, No murmurs, PMI Normal Abdomen: Bowel Sounds Present, Soft, Non Tender, Non-Distended Extremities: No edema, Capillary Refill Less than 3 Seconds Skin: No rashes, No breakdown Musculoskeletal: No Tenderness to Palpation of Joints or Extremities Neurological: Cranial nerves II-XII grossly intact, Sensory exam intact to light touch and pain Psych/Mental Status: Flat Affect, - - Patient is lethargic and somnolent, he is able to respond with a few words Microbiology Past 72 Hours 10/29/20 19:00 Blood Culture (Wb) - Anticubital Right Blood Culture - Final No growth in 5 days. 01/05/20 19:00 Blood Culture (Wb) - Anticubital Left Blood Culture - Final No growth in 5 days. Laboratory Results 01/10/20 21:46: POC Glucose 223 H 01/11/20 04:12: POC Glucose 203 H 01/11/20 06:15: Hep Bs Antigen Pending 01/11/20 06:34: Sodium 146 H, Potassium 4.4, Chloride 114 H, Carbon Dioxide 22.0, BUN 112 H*, Creatinine 3.51 H, Estim Creat Clear Calc 16.46, Est GFR (MDRD) Af Amer 22 L, Est GFR (MDRD) Non-Af 18 L, BUN/Creatinine Ratio 31.9 H, Glucose 218 H, Calcium 8.5, Phosphorus 5.1 H, Albumin 2.3 L 01/11/20 10:37: POC Glucose 173 H 01/11/20 17:09: POC Glucose 193 H Current Medications Acetaminophen (Acetaminophen 650 Mg Suppository) 650 mg RECTAL Q6H PRN PRN PRN Reason: Pain 1-10 or Fever Last Admin: 01/08/20 10:46 Dose: 650 mg Documented by: Aspirin (Aspirin 81 Mg Tab.Chew) 81 mg PO DAILY@0800 [facility] Last Admin: 01/11/20 09:15 Dose: Not Given Documented by: Dexamethasone Sodium Phosphate (Dexamethasone 4 Mg/Ml Vial) 6 mg IV Q24 [facility] Last Admin: 01/11/20 09:23 Dose: 6 mg Documented by: Famotidine (Famotidine 20 Mg Tablet) 20 mg PO DAILY [facility] Last Admin: 01/11/20 09:24 Dose: Not Given Documented by: Heparin Sodium (Porcine) (Heparin Injection (Vial) 5,000 Unit/Ml Vial) 5,000 unit SC Q12 [facility] Last Admin: 01/11/20 09:23 Dose: 5,000 unit Documented by: Sodium Chloride () 250 mls @ 15 mls/hr IV .[id number] PRN PRN Reason: Saline Flush Sodium Chloride () 250 mls @ 15 mls/hr IV .[id number] PRN PRN Reason: Additional IVPB Infusion Dextrose/Sodium Chloride () 1,000 mls @ 60 mls/hr IV .[id number] [facility] Last Admin: 01/11/20 15:00 Dose: 60 mls/hr Documented by: Insulin Glargine (Insulin Glargine 100 Units/Ml Pen) 10 units SC BID [facility] Last Admin: 01/11/20 10:40 Dose: 10 units Documented by: Insulin Human Lispro (Insulin Lispro 100 Unit/Ml Insuln.Pen) 0 unit SC Q6@0400,1000,1600,2200 [facility]; Protocol Last Admin: 01/11/20 17:11 Dose: 2 units Documented by: Ondansetron HCl (Ondansetron 4 Mg/2 Ml Vial) 4 mg IV Q8H PRN PRN PRN Reason: NAUSEA/VOMITING Senna/Docusate Sodium (Senna/Docusate Sodium 1 Tablet) 2 tablet PO BID [facility] Last Admin: 01/11/20 09:24 Dose: Not Given Documented by: Sodium Chloride (0.9% Saline Lock 10 Ml Syringe) 10 - 40 ml IV UD PRN PRN Reason: SALINE FLUSH Last Admin: 01/11/20 09:25 Dose: 10 ml Documented by: Medical Necessity - Tobacco Use Smoking Status: Unknown if ever smoked Assessment/Plan All Active Problems (Last Updated 01/09/20 @ 06:35 by Oxana Hightower) Non-ST elevated myocardial infarction (non-STEMI) (Acute 01/06/20) COVID-19 (Acute) Pneumonia due to 2019 novel coronavirus (Acute) Elevated troponin (Acute 01/06/20) #1 acute COVID-19 infection with pneumonia-continue present treatment #2 acute hypoxic respiratory failure secondary to COVID-19 infection-continue to monitor oxygen, patient remains on low-flow oxygen #3 acute kidney injury on chronic kidney disease stage IV-again nephrology does not want to dialyze the patient, will continue to administer fluids and reevaluate the patient, I will increase his IV rate to 80 cc an hour #4 confusion-probably secondary to metabolic encephalopathy due to COVID-19 infection-continue to observe, prognosis remains poor, patient is unable to eat #5 cerebrovascular disease #6 coronary artery disease #7 ischemic cardiomyopathy #8 elevated cardiac enzymes-etiology unclear, may be as a result of COVID-19 infection, patient has kidney failure at this time and troponin elevations are unreliable. #9 elevated liver enzymes-these are trending downward, the etiology of these liver enzyme elevations are unknown at this time. Patient is a DNR CC arrest no intubation, patient's family is aware that a feeding tube would not be an option for this patient Inpatient E&M: [id number] Subs Hosp L2
[2020-01-11 22:15] LABS: Bedside Glucose 189 mg/dL (70-110)
[2020-01-12] VITALS (7 sets, daily range): BP systolic 122–133; BP diastolic 52–73; PULSE 69–73; RESP 20–32; TEMP 35.9–36.4; O2SAT 83–97
[2020-01-12] MEDS: Insulin Lispro 100 UNIT/ML INSULN.PEN SC ×3 (04:07→22:10)
[2020-01-12 04:26] LABS: Bedside Glucose 156 mg/dL (70-110)
[2020-01-12] MEDS: Dext 5%-0.45% NS 1,000 ML 60 ML IV ×2 (06:49→22:12)
[2020-01-12 07:30] LABS: Albumin, Serum 2.2 g/dL (3.2-5.0); BUN 111 mg/dL (7-18); BUN/Creat Ratio 35.8 RATIO (10-20); Calcium,Total 8.8 mg/dL (8.5-10.1); Chloride 117 mmol/L (98-107); EST Glomerular Filtration Rate 21 mL/min (>60); Est Glom Filt Rate - Afr Amer 25 mL/min (>60); Estimated Creatinine Clearance 18.64 ml/min; Glucose 159 mg/dL (74-106); Phosphorus 4.3 mg/dL (2.5-4.9); Potassium 4.3 mmol/L (3.5-5.1); Sodium Level 147 mmol/L (136-145)
--- NOTE | 2020-01-12 08:28 | PN_ITS ---
Patient Problems: Active and Suspected Problems (Last Updated 01/09/20 @ 06:35 by Oxana Hightower) COVID-19 (Acute) Pneumonia due to 2019 novel coronavirus (Acute) Subjective: Patient was seen and examined today, I increased his IV rate today to 75 cc/h, he appears more alert today and is able to answer simple questions. - Physical Exam Vitals/I&O's: Vital Signs Temp Pulse Resp BP Pulse Ox 97.1 F L 73 20 H 129/71 H 97 01/12/20 04:00 01/12/20 04:00 01/12/20 04:00 01/12/20 04:00 01/12/20 04:00 Oxygen Flow Rate (L/min) 1 Oxygen Delivery Method Nasal Cannula Weight: 81.9 kg Body Mass Index (BMI) 25.9 Intake and Output for Last 24 Hours 01/10/20 01/11/20 01/12/20 23:59 23:59 23:59 Intake Total 2015 / 2015 1475 / 1475 1009 / 1009 Output Total 1000 / 1000 1100 / 1100 350 / 350 Balance 1016 / 1016 375 / 375 659 / 659 General: Alert, Cooperative, No apparent distress, Well developed HEENT: Atraumatic, PERRLA, EOMI, Normocephalic Oral: Moist Mucosa Neck: Supple, No JVD, Trachea Midline, Thyroid Normal Size and Texture Lungs: Clear to auscultation, Normal air movement, No rhonchi, No wheeze, No rales Cardiovascular: Regular rate, Regular Rhythm, Normal S1, Normal S2, No murmurs, PMI Normal, No rub noted, No Gallop Abdomen: Bowel Sounds Present, Soft, Non Tender, Non-Distended Extremities: No edema, Capillary Refill Less than 3 Seconds Skin: No rashes, No breakdown Musculoskeletal: No Tenderness to Palpation of Joints or Extremities Neurological: Cranial nerves II-XII grossly intact, Neuro grossly intact, Sensory exam intact to light touch and pain Psych/Mental Status: - - Patient is alert with mild confusion Microbiology Past 72 Hours 01/05/20 19:00 Blood Culture (Wb) - Anticubital Right Blood Culture - Final No growth in 5 days. 01/05/20 19:00 Blood Culture (Wb) - Anticubital Left Blood Culture - Final No growth in 5 days. Laboratory Results 01/11/20 06:15: Hep Bs Antigen Pending 01/11/20 10:37: POC Glucose 173 H 01/11/20 17:09: POC Glucose 193 H 01/11/20 21:54: POC Glucose 189 H 01/12/20 03:57: POC Glucose 156 H 01/12/20 05:56: Sodium 147 H, Potassium 4.3, Chloride 117 H, Carbon Dioxide 23.0, BUN 111 H*, Creatinine 3.10 H, Estim Creat Clear Calc 18.64, Est GFR (MDRD) Af Amer 25 L, Est GFR (MDRD) Non-Af 21 L, BUN/Creatinine Ratio 35.8 H, Glucose 159 H, Calcium 8.8, Phosphorus 4.3, Albumin 2.2 L Current Medications Acetaminophen (Acetaminophen 650 Mg Suppository) 650 mg RECTAL Q6H PRN PRN PRN Reason: Pain 1-10 or Fever Last Admin: 01/08/20 10:46 Dose: 650 mg Documented by: Aspirin (Aspirin 81 Mg Tab.Chew) 81 mg PO DAILY@0800 [facility] Last Admin: 01/11/20 09:15 Dose: Not Given Documented by: Dexamethasone Sodium Phosphate (Dexamethasone 4 Mg/Ml Vial) 6 mg IV Q24 [facility] Last Admin: 01/11/20 09:23 Dose: 6 mg Documented by: Famotidine (Famotidine 20 Mg Tablet) 20 mg PO DAILY [facility] Last Admin: 01/11/20 09:24 Dose: Not Given Documented by: Heparin Sodium (Porcine) (Heparin Injection (Vial) 5,000 Unit/Ml Vial) 5,000 unit SC Q12 [facility] Last Admin: 01/11/20 21:57 Dose: 5,000 unit Documented by: Sodium Chloride () 250 mls @ 15 mls/hr IV .[id number] PRN PRN Reason: Saline Flush Sodium Chloride () 250 mls @ 15 mls/hr IV .[id number] PRN PRN Reason: Additional IVPB Infusion Dextrose/Sodium Chloride () 1,000 mls @ 75 mls/hr IV .[id number] [facility] Last Admin: 01/12/20 06:49 Dose: 60 mls/hr Documented by: Insulin Glargine (Insulin Glargine 100 Units/Ml Pen) 10 units SC BID [facility] Last Admin: 01/11/20 21:56 Dose: 10 units Documented by: Insulin Human Lispro (Insulin Lispro 100 Unit/Ml Insuln.Pen) 0 unit SC Q6@0400,1000,1600,2200 [facility]; Protocol Last Admin: 01/12/20 04:07 Dose: 1 units Documented by: Ondansetron HCl (Ondansetron 4 Mg/2 Ml Vial) 4 mg IV Q8H PRN PRN PRN Reason: NAUSEA/VOMITING Senna/Docusate Sodium (Senna/Docusate Sodium 1 Tablet) 2 tablet PO BID [facility] Last Admin: 01/11/20 21:57 Dose: Not Given Documented by: Sodium Chloride (0.9% Saline Lock 10 Ml Syringe) 10 - 40 ml IV UD PRN PRN Reason: SALINE FLUSH Last Admin: 01/11/20 09:25 Dose: 10 ml Documented by: Medical Necessity - Tobacco Use Smoking Status: Unknown if ever smoked Assessment/Plan All Active Problems (Last Updated 01/09/20 @ 06:35 by Oxana Hightower) Non-ST elevated myocardial infarction (non-STEMI) (Acute 01/06/20) COVID-19 (Acute) Pneumonia due to 2019 novel coronavirus (Acute) Elevated troponin (Acute 01/06/20) #1 acute COVID-19 infection with pneumonia-continue present treatment #2 acute hypoxic respiratory failure secondary to COVID-19 infection-continue to monitor oxygen, patient remains on low-flow oxygen #3 acute kidney injury on chronic kidney disease stage IV-again nephrology does not want to dialyze the patient, will continue to administer fluids and reevaluate the patient, I will increase his IV rate to 75 cc an hour #4 confusion-probably secondary to metabolic encephalopathy due to COVID-19 infection-continue to observe, prognosis remains unclear, patient is unable to eat at this time, speech therapy will work with the patient #5 cerebrovascular disease #6 coronary artery disease #7 ischemic cardiomyopathy #8 elevated cardiac enzymes-etiology unclear, may be as a result of COVID-19 infection, patient has kidney failure at this time and troponin elevations are unreliable. #9 elevated liver enzymes-etiology unknown. Patient is a DNR CC arrest no intubation, patient's family is aware that a feeding tube would not be an option for this patient Inpatient E&M: [id number] [facility] Hosp L2
--- NOTE | 2020-01-12 09:02 | PCM.PN.REN ---
Patient Problems: Active and Suspected Problems (Last Updated 01/09/20 @ 06:35 by Oxana Hightower) COVID-19 (Acute) Pneumonia due to 2019 novel coronavirus (Acute) Subjective: more responsive but remains confused. Creatinine continues to improve with urine output. Complains of thirst. - Physical Exam Vitals/I&O's: Vital Signs Temp Pulse Resp BP Pulse Ox 97.1 F L 73 20 H 129/71 H 97 01/12/20 04:00 01/12/20 04:00 01/12/20 04:00 01/12/20 04:00 01/12/20 04:00 Oxygen Flow Rate (L/min) 1 Oxygen Delivery Method Nasal Cannula Weight: 81.9 kg Body Mass Index (BMI) 25.9 Intake and Output for Last 24 Hours 01/10/20 01/11/20 01/12/20 23:59 23:59 23:59 Intake Total 2015 1475 / 1475 1009 / 1009 Output Total 1000 / 1000 1100 / 1100 350 / 350 Balance 1016 / 1016 375 / 375 659 / 659 General: Confused, - - awake Oral: Dry Mucosa Cardiovascular: Regular rate Extremities: Edema Musculoskeletal: - - debilitated Psych/Mental Status: - - confused Microbiology Past 72 Hours 01/05/20 19:00 Blood Culture (Wb) - Anticubital Right Blood Culture - Final No growth in 5 days. 01/05/20 19:00 Blood Culture (Wb) - Anticubital Left Blood Culture - Final No growth in 5 days. Laboratory Results 01/11/20 06:15: Hep Bs Antigen Pending 01/11/20 10:37: POC Glucose 173 H 01/11/20 17:09: POC Glucose 193 H 01/11/20 21:54: POC Glucose 189 H 01/12/20 03:57: POC Glucose 156 H 01/12/20 05:56: Sodium 147 H, Potassium 4.3, Chloride 117 H, Carbon Dioxide 23.0, BUN 111 H*, Creatinine 3.10 H, Estim Creat Clear Calc 18.64, Est GFR (MDRD) Af Amer 25 L, Est GFR (MDRD) Non-Af 21 L, BUN/Creatinine Ratio 35.8 H, Glucose 159 H, Calcium 8.8, Phosphorus 4.3, Albumin 2.2 L Current Medications Acetaminophen (Acetaminophen 650 Mg Suppository) 650 mg RECTAL Q6H PRN PRN PRN Reason: Pain 1-10 or Fever Last Admin: 01/08/20 10:46 Dose: 650 mg Documented by: Aspirin (Aspirin 81 Mg Tab.Chew) 81 mg PO DAILY@0800 [facility] Last Admin: 01/11/20 09:15 Dose: Not Given Documented by: Dexamethasone Sodium Phosphate (Dexamethasone 4 Mg/Ml Vial) 6 mg IV Q24 [facility] Last Admin: 01/11/20 09:23 Dose: 6 mg Documented by: Famotidine (Famotidine 20 Mg Tablet) 20 mg PO DAILY [facility] Last Admin: 01/11/20 09:24 Dose: Not Given Documented by: Heparin Sodium (Porcine) (Heparin Injection (Vial) 5,000 Unit/Ml Vial) 5,000 unit SC Q12 [facility] Last Admin: 01/11/20 21:57 Dose: 5,000 unit Documented by: Sodium Chloride () 250 mls @ 15 mls/hr IV .[id number] PRN PRN Reason: Saline Flush Sodium Chloride () 250 mls @ 15 mls/hr IV .[id number] PRN PRN Reason: Additional IVPB Infusion Dextrose/Sodium Chloride () 1,000 mls @ 75 mls/hr IV .[id number] [facility] Last Admin: 01/12/20 06:49 Dose: 60 mls/hr Documented by: Insulin Glargine (Insulin Glargine 100 Units/Ml Pen) 10 units SC BID [facility] Last Admin: 01/11/20 21:56 Dose: 10 units Documented by: Insulin Human Lispro (Insulin Lispro 100 Unit/Ml Insuln.Pen) 0 unit SC Q6@0400,1000,1600,2200 [facility]; Protocol Last Admin: 01/12/20 04:07 Dose: 1 units Documented by: Ondansetron HCl (Ondansetron 4 Mg/2 Ml Vial) 4 mg IV Q8H PRN PRN PRN Reason: NAUSEA/VOMITING Senna/Docusate Sodium (Senna/Docusate Sodium 1 Tablet) 2 tablet PO BID [facility] Last Admin: 01/11/20 21:57 Dose: Not Given Documented by: Sodium Chloride (0.9% Saline Lock 10 Ml Syringe) 10 - 40 ml IV UD PRN PRN Reason: SALINE FLUSH Last Admin: 01/11/20 09:25 Dose: 10 ml Documented by: Medical Necessity - Tobacco Use Smoking Status: Unknown if ever smoked Assessment/Plan All Active Problems (Last Updated 01/09/20 @ 06:35 by Oxana Hightower) Non-ST elevated myocardial infarction (non-STEMI) (Acute 01/06/20) COVID-19 (Acute) Pneumonia due to 2019 novel coronavirus (Acute) Elevated troponin (Acute 01/06/20) 1. 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 Hold dialysis today. 2. Edema from dexa, hypoalbuminemia. 3. COVID positive on dexa 4. Hypernatremia with no access to water. Changed ivf to d51/2NS.
[2020-01-12] MEDS: 0.9% Saline Lock 10 ML Syringe IV (09:09)
[2020-01-12] MEDS: dexAMETHasone 4 MG/ML Vial 6 MG IV (09:09)
[2020-01-12] MEDS: Heparin Injection (Vial) 5,000 UNIT/ML VIAL 5000 UNIT SC ×2 (09:10→22:10)
--- NOTE | 2020-01-12 09:29 | NURSING ---
PT 89-92% ON RA.
[2020-01-12 11:11] LABS: Bedside Glucose 145 mg/dL (70-110)
[2020-01-12] MEDS: Bisacodyl 10 MG Suppository RECTAL (12:29)
[2020-01-12 14:30] LABS: Hepatitis B Surface Antigen Non-Reactive (Nonreactive)
[2020-01-13] VITALS (7 sets, daily range): BP systolic 125–136; BP diastolic 69–85; PULSE 69–106; RESP 16–28; TEMP 36–36.6; O2SAT 95–98
[2020-01-13] MEDS: Insulin Lispro 100 UNIT/ML INSULN.PEN SC (04:30)
[2020-01-13 07:21] LABS: Bedside Glucose 159 mg/dL (70-110)
[2020-01-13 07:21] LABS: Bedside Glucose 190 mg/dL (70-110)
[2020-01-13 07:21] LABS: Bedside Glucose 151 mg/dL (70-110)
[2020-01-13 08:44] LABS: Albumin, Serum 2.3 g/dL (3.2-5.0); BUN 99 mg/dL (7-18); BUN/Creat Ratio 35.4 RATIO (10-20); Calcium,Total 8.8 mg/dL (8.5-10.1); Chloride 120 mmol/L (98-107); EST Glomerular Filtration Rate 23 mL/min (>60); Est Glom Filt Rate - Afr Amer 28 mL/min (>60); Estimated Creatinine Clearance 20.64 ml/min; Glucose 132 mg/dL (74-106); Phosphorus 4.4 mg/dL (2.5-4.9); Potassium 4.6 mmol/L (3.5-5.1); Sodium Level 146 mmol/L (136-145)
--- NOTE | 2020-01-13 09:07 | PN_ITS ---
Patient Problems: Active and Suspected Problems (Last Updated 01/09/20 @ 06:35 by Oxana Hightower) COVID-19 (Acute) Pneumonia due to 2019 novel coronavirus (Acute) Subjective: Patient was seen and examined today, he remains lethargic, creatinine is improved today. Patient has no complaints of any chest pain, fever, chills, or shortness of breath. He remains on low-flow oxygen at this time. Objective: General: Patient is alert but lethargic, he answers simple questions appropriately HEENT: Atraumatic, PERRLA, EOMI, Normocephalic Oral: Moist Mucosa Neck: Supple, No JVD, Trachea Midline, Thyroid Normal Size and Texture Lungs: Clear to auscultation, Normal air movement, No rhonchi, No wheeze, No rales Cardiovascular: Regular rate, Regular Rhythm, Normal S1, Normal S2, No murmurs, PMI Normal, No rub noted, No Gallop Abdomen: Bowel Sounds Present, Soft, Non Tender, Non-Distended Extremities: No edema, Capillary Refill Less than 3 Seconds Skin: No rashes, No breakdown Musculoskeletal: No Tenderness to Palpation of Joints or Extremities Neurological: Cranial nerves II-XII grossly intact, Neuro grossly intact, Sensory exam intact to light touch and pain Psych/Mental Status: - - Patient is alert with mild confusion, he is aware of why he is in the hospital - Physical Exam Vitals/I&O's: Vital Signs Temp Pulse Resp BP Pulse Ox 96.8 F L 98 18 136/77 H 97 01/13/20 08:52 01/13/20 08:52 01/13/20 08:52 01/13/20 08:52 01/13/20 08:52 Oxygen Flow Rate (L/min) 2.5 Oxygen Delivery Method Nasal Cannula Weight: 83.2 kg Body Mass Index (BMI) 25.9 Intake and Output for Last 24 Hours 01/11/20 01/12/20 01/13/20 23:59 23:59 23:59 Intake Total 1475 / 1475 1932 / 1932 Output Total 1100 / 1100 850 / 1100 500 / 500 Balance 375 / 375 1082 / 832 -500 / -500 Microbiology Past 72 Hours 01/05/20 19:00 Blood Culture (Wb) - Anticubital Right Blood Culture - Final No growth in 5 days. 01/05/20 19:00 Blood Culture (Wb) - Anticubital Left Blood Culture - Final No growth in 5 days. Laboratory Results 01/11/20 06:15: Hep Bs Antigen Non-Reactive 01/12/20 10:04: POC Glucose 145 H 01/12/20 16:04: POC Glucose 190 H 01/12/20 21:45: POC Glucose 159 H 01/13/20 04:21: POC Glucose 151 H 01/13/20 07:55: Sodium 146 H, Potassium 4.6, Chloride 120 H, Carbon Dioxide 22.0, BUN 99 H, Creatinine 2.80 H, Estim Creat Clear Calc 20.64, Est GFR (MDRD) Af Amer 28 L, Est GFR (MDRD) Non-Af 23 L, BUN/Creatinine Ratio 35.4 H, Glucose 132 H, Calcium 8.8, Phosphorus 4.4, Albumin 2.3 L Current Medications Acetaminophen (Acetaminophen 650 Mg Suppository) 650 mg RECTAL Q6H PRN PRN PRN Reason: Pain 1-10 or Fever Last Admin: 01/08/20 10:46 Dose: 650 mg Documented by: Aspirin (Aspirin 81 Mg Tab.Chew) 81 mg PO DAILY@0800 [facility] Last Admin: 01/12/20 09:08 Dose: Not Given Documented by: Dexamethasone Sodium Phosphate (Dexamethasone 4 Mg/Ml Vial) 6 mg IV Q24 [facility] Last Admin: 01/12/20 09:09 Dose: 6 mg Documented by: Famotidine (Famotidine 20 Mg Tablet) 20 mg PO DAILY [facility] Last Admin: 01/12/20 09:10 Dose: Not Given Documented by: Heparin Sodium (Porcine) (Heparin Injection (Vial) 5,000 Unit/Ml Vial) 5,000 unit SC Q12 [facility] Last Admin: 01/12/20 22:10 Dose: 5,000 unit Documented by: Sodium Chloride () 250 mls @ 15 mls/hr IV .[id number] PRN PRN Reason: Saline Flush Sodium Chloride () 250 mls @ 15 mls/hr IV .[id number] PRN PRN Reason: Additional IVPB Infusion Dextrose/Sodium Chloride () 1,000 mls @ 75 mls/hr IV .[id number] [facility] Last Admin: 01/12/20 22:12 Dose: 60 mls/hr Documented by: Insulin Glargine (Insulin Glargine 100 Units/Ml Pen) 10 units SC BID [facility] Last Admin: 01/12/20 22:11 Dose: 10 units Documented by: Insulin Human Lispro (Insulin Lispro 100 Unit/Ml Insuln.Pen) 0 unit SC Q6@0400,1000,1600,2200 [facility]; Protocol Last Admin: 01/13/20 04:30 Dose: 1 units Documented by: Ondansetron HCl (Ondansetron 4 Mg/2 Ml Vial) 4 mg IV Q8H PRN PRN PRN Reason: NAUSEA/VOMITING Senna/Docusate Sodium (Senna/Docusate Sodium 1 Tablet) 2 tablet PO BID [facility] Last Admin: 01/12/20 21:50 Dose: Not Given Documented by: Sodium Chloride (0.9% Saline Lock 10 Ml Syringe) 10 - 40 ml IV UD PRN PRN Reason: SALINE FLUSH Last Admin: 01/12/20 09:09 Dose: 10 ml Documented by: Medical Necessity - Tobacco Use Smoking Status: Unknown if ever smoked Assessment/Plan All Active Problems (Last Updated 01/09/20 @ 06:35 by Oxana Hightower) Non-ST elevated myocardial infarction (non-STEMI) (Acute 01/06/20) COVID-19 (Acute) Pneumonia due to 2019 novel coronavirus (Acute) Elevated troponin (Acute 01/06/20) #1 acute COVID-19 infection with pneumonia-continue present treatment #2 acute hypoxic respiratory failure secondary to COVID-19 infection-continue to monitor oxygen, patient remains on low-flow oxygen #3 acute kidney injury on chronic kidney disease stage IV-again nephrology does not want to dialyze the patient, will continue to administer fluids and reevaluate the patient, patient's IV rate is at 75 cc/h #4 confusion-probably secondary to metabolic encephalopathy due to COVID-19 infection-continue to observe, prognosis remains unclear, patient is unable to eat at this time, speech therapy will work with the patient #5 cerebrovascular disease #6 coronary artery disease #7 ischemic cardiomyopathy #8 elevated cardiac enzymes-etiology unclear, may be as a result of COVID-19 infection, patient has kidney failure at this time and troponin elevations are unreliable. #9 elevated liver enzymes-etiology unknown. #10 dysphagia-secondary to overall weakness, speech therapy is working with the patient Patient is a DNR CC arrest no intubation, patient's family is aware that a feeding tube would not be an option for this patient Inpatient E&M: 07069 Subs Hosp L2
[2020-01-13] MEDS: 0.9% Saline Lock 10 ML Syringe IV (09:18)
[2020-01-13] MEDS: dexAMETHasone 4 MG/ML Vial 6 MG IV (09:18)
[2020-01-13] MEDS: Heparin Injection (Vial) 5,000 UNIT/ML VIAL 5000 UNIT SC ×2 (09:19→21:40)
[2020-01-13 10:26] LABS: Bedside Glucose 122 mg/dL (70-110)
--- NOTE | 2020-01-13 10:54 | CASEMGMT ---
RN TINY Note- discussed case with physician re: patient's debility, failed swallowing and per Dr. Castellanos, no plans for feeding tube. RN TINY discussed if whether Hospice should be discussed with the family for Home or @ ECF. Patient would not be eligible for skilled services @ ECF without ability to eat, take medications or access via PEG tube. CM Will re-evaluate Thursday for discharge needs at that time. Carrie NOLAN RN ACM
[2020-01-13] MEDS: Dext 5%-0.45% NS 1,000 ML 75 ML IV ×2 (11:39→23:40)
--- NOTE | 2020-01-13 15:57 | PCM.PN.ID ---
Patient Problems: Active and Suspected Problems (Last Updated 01/09/20 @ 06:35 by Oxana Hightower) COVID-19 (Acute) Pneumonia due to 2019 novel coronavirus (Acute) Subjective: Feeling ok, no fever - Physical Exam Vitals/I&O's: Vital Signs Temp Pulse Resp BP Pulse Ox 97.8 F 106 H 16 130/84 H 97 01/13/20 14:12 01/13/20 14:12 01/13/20 14:12 01/13/20 14:12 01/13/20 14:12 Oxygen Flow Rate (L/min) 2.5 Oxygen Delivery Method Nasal Cannula Weight: 83.2 kg Body Mass Index (BMI) 25.9 Intake and Output for Last 24 Hours 01/11/20 01/12/20 01/13/20 23:59 23:59 23:59 Intake Total 1475 / 1475 1932 / 1932 807 / 807 Output Total 1100 / 1100 850 / 1100 700 / 700 Balance 375 / 375 1082 / 832 107 / 107 General: Alert, No apparent distress, Lethargic Lungs: Diminished Cardiovascular: Regular rate, Regular Rhythm Abdomen: Soft, Non Tender, Non-Distended Skin: No rashes Microbiology Past 72 Hours 01/05/20 19:00 Blood Culture (Wb) - Anticubital Right Blood Culture - Final No growth in 5 days. 01/05/20 19:00 Blood Culture (Wb) - Anticubital Left Blood Culture - Final No growth in 5 days. Laboratory Results 01/12/20 16:04: POC Glucose 190 H 01/12/20 21:45: POC Glucose 159 H 01/13/20 04:21: POC Glucose 151 H 01/13/20 07:55: Sodium 146 H, Potassium 4.6, Chloride 120 H, Carbon Dioxide 22.0, BUN 99 H, Creatinine 2.80 H, Estim Creat Clear Calc 20.64, Est GFR (MDRD) Af Amer 28 L, Est GFR (MDRD) Non-Af 23 L, BUN/Creatinine Ratio 35.4 H, Glucose 132 H, Calcium 8.8, Phosphorus 4.4, Albumin 2.3 L 01/13/20 09:22: POC Glucose 122 H Current Medications Acetaminophen (Acetaminophen 650 Mg Suppository) 650 mg RECTAL Q6H PRN PRN PRN Reason: Pain 1-10 or Fever Last Admin: 11/01/20 10:46 Dose: 650 mg Documented by: Aspirin (Aspirin 81 Mg Tab.Chew) 81 mg PO DAILY@0800 [facility] Last Admin: 01/13/20 09:17 Dose: Not Given Documented by: Dexamethasone (Dexamethasone 4 Mg Tablet) 6 mg PO DAILY@0800 [facility] Stop: 01/15/20 08:01 Famotidine (Famotidine 20 Mg Tablet) 20 mg PO DAILY [facility] Last Admin: 01/13/20 09:17 Dose: Not Given Documented by: Heparin Sodium (Porcine) (Heparin Injection (Vial) 5,000 Unit/Ml Vial) 5,000 unit SC Q12 [facility] Last Admin: 01/13/20 09:19 Dose: 5,000 unit Documented by: Sodium Chloride () 250 mls @ 15 mls/hr IV .[id number] PRN PRN Reason: Saline Flush Sodium Chloride () 250 mls @ 15 mls/hr IV .[id number] PRN PRN Reason: Additional IVPB Infusion Dextrose/Sodium Chloride () 1,000 mls @ 75 mls/hr IV .[id number] [facility] Last Admin: 01/13/20 11:39 Dose: 75 mls/hr Documented by: Insulin Glargine (Insulin Glargine 100 Units/Ml Pen) 10 units SC BID [facility] Last Admin: 01/13/20 09:23 Dose: 10 units Documented by: Insulin Human Lispro (Insulin Lispro 100 Unit/Ml Insuln.Pen) 0 unit SC Q6@0400,1000,1600,2200 [facility]; Protocol Last Admin: 01/13/20 09:23 Dose: Not Given Documented by: Ondansetron HCl (Ondansetron 4 Mg/2 Ml Vial) 4 mg IV Q8H PRN PRN PRN Reason: NAUSEA/VOMITING Senna/Docusate Sodium (Senna/Docusate Sodium 1 Tablet) 2 tablet PO BID [facility] Last Admin: 01/13/20 09:17 Dose: Not Given Documented by: Sodium Chloride (0.9% Saline Lock 10 Ml Syringe) 10 - 40 ml IV UD PRN PRN Reason: SALINE FLUSH Last Admin: 01/13/20 09:18 Dose: 10 ml Documented by: Medical Necessity - Tobacco Use Smoking Status: Unknown if ever smoked Route of nutrition/ use of supplements: [] Nutritional Intake: [] IV Site: [] Pena Catheter: [] - Assessment/Plan Antibiotics: [] Assessment/Plan: [] Active and Suspected Problems (Last Reviewed 01/06/20 @ 01:[address] Leon Armas MD) COVID-19 (Acute) Pneumonia due to 2019 novel coronavirus (Acute) Fever, high PCT on arrival. Cxs neg. On dex. Off meropenem. On 2L. Ok for dispo planning to complete 10 days total of dex. Will change to po dex. Will follow
[2020-01-13 16:45] LABS: Bedside Glucose 140 mg/dL (70-110)
--- NOTE | 2020-01-13 18:29 | NURSING ---
called daughter larry and updated her on pt status. she voiced appreciation of the staff at [facility]
[2020-01-13 21:45] LABS: Bedside Glucose 128 mg/dL (70-110)
[2020-01-14] VITALS (12 sets, daily range): BP systolic 121–142; BP diastolic 66–82; PULSE 70–103; RESP 20–44; TEMP 35.6–36.9; O2SAT 94–97
--- NOTE | 2020-01-14 00:10 | RAD_ITS ---
STUDY: X-RAY CHEST REASON FOR EXAM: Male, 84 years old. Worsening dyspnea. TECHNIQUE: Frontal view COMPARISON: 01/05/2020 FINDINGS: Pacemaker leads are in proper position. There is a RIGHT-sided central venous catheter. The tip is in the superior vena cava. There bilateral basilar infiltrates. There is a small LEFT pleural effusion. There is NO pneumothorax. Normal size heart. There has been open heart surgery. Normal visualized pulmonary arteries. Normal visualized aortic arch and descending thoracic aorta. Normal visualized thoracic spine. Normal visualized ribs, clavicles, and shoulders. There is no demonstrated abnormality of the visualized soft tissue structures of the upper abdomen. RAD/Chest 1 View (Portable) IMPRESSION: Pacemaker leads are in proper position. There is a RIGHT-sided central venous catheter. The tip is in the superior vena cava. There bilateral basilar infiltrates. There is a small LEFT pleural effusion. There is NO pneumothorax. There is no demonstrated pleural abnormality. Normal size heart. Electronically Signed: Brendon Ferreira MD at 2:22 EST , Service support ,
[2020-01-14 06:25] LABS: Bedside Glucose 118 mg/dL (70-110)
--- NOTE | 2020-01-14 08:40 | PCM.PN.REN ---
Patient Problems: Active and Suspected Problems (Last Updated 01/09/20 @ 06:35 by Oxana Hightower) COVID-19 (Acute) Pneumonia due to 2019 novel coronavirus (Acute) Subjective: no change clinically. Oxygen stable. Renal function continues to improve. Today's labs pending. No need for dialysis. Continue with iv fluids for maintenance fluids since pt NPO for aspiration risk. - Physical Exam Vitals/I&O's: Vital Signs Temp Pulse Resp BP Pulse Ox 97.0 F L 103 H 20 H 131/82 H 97 01/14/20 03:30 01/14/20 03:30 01/14/20 03:30 01/14/20 03:30 01/14/20 03:41 Oxygen Flow Rate (L/min) 2.5 Oxygen Delivery Method Nasal Cannula Weight: 83.6 kg Body Mass Index (BMI) 25.9 Intake and Output for Last 24 Hours 01/12/20 01/13/20 01/14/20 23:59 23:59 23:59 Intake Total 1932 / 1932 1708.25 / 1708.25 Output Total 850 / 1100 850 / 850 250 / 250 Balance 1082 / 832 858.25 / 858.25 -250 / -250 Microbiology Past 72 Hours 01/05/20 19:00 Blood Culture (Wb) - Anticubital Right Blood Culture - Final No growth in 5 days. 01/05/20 19:00 Blood Culture (Wb) - Anticubital Left Blood Culture - Final No growth in 5 days. Laboratory Results 01/13/20 07:55: Sodium 146 H, Potassium 4.6, Chloride 120 H, Carbon Dioxide 22.0, BUN 99 H, Creatinine 2.80 H, Estim Creat Clear Calc 20.64, Est GFR (MDRD) Af Amer 28 L, Est GFR (MDRD) Non-Af 23 L, BUN/Creatinine Ratio 35.4 H, Glucose 132 H, Calcium 8.8, Phosphorus 4.4, Albumin 2.3 L 01/13/20 09:22: POC Glucose 122 H 01/13/20 16:39: POC Glucose 140 H 01/13/20 21:31: POC Glucose 128 H 01/14/20 03:28: POC Glucose 118 H Current Medications Acetaminophen (Acetaminophen 650 Mg Suppository) 650 mg RECTAL Q6H PRN PRN PRN Reason: Pain 1-10 or Fever Last Admin: 01/08/20 10:46 Dose: 650 mg Documented by: Aspirin (Aspirin 81 Mg Tab.Chew) 81 mg PO DAILY@0800 [facility] Last Admin: 01/13/20 09:17 Dose: Not Given Documented by: Dexamethasone (Dexamethasone 4 Mg Tablet) 6 mg PO DAILY@0800 [facility] Stop: 01/15/20 08:01 Famotidine (Famotidine 20 Mg Tablet) 20 mg PO DAILY [facility] Last Admin: 01/13/20 09:17 Dose: Not Given Documented by: Heparin Sodium (Porcine) (Heparin Injection (Vial) 5,000 Unit/Ml Vial) 5,000 unit SC Q12 [facility] Last Admin: 01/13/20 21:40 Dose: 5,000 unit Documented by: Sodium Chloride () 250 mls @ 15 mls/hr IV .[id number] PRN PRN Reason: Saline Flush Sodium Chloride () 250 mls @ 15 mls/hr IV .[id number] PRN PRN Reason: Additional IVPB Infusion Dextrose/Sodium Chloride () 1,000 mls @ 75 mls/hr IV .[id number] [facility] Last Admin: 01/13/20 23:40 Dose: 75 mls/hr Documented by: Insulin Glargine (Insulin Glargine 100 Units/Ml Pen) 10 units SC BID [facility] Last Admin: 01/13/20 21:43 Dose: 10 units Documented by: Insulin Human Lispro (Insulin Lispro 100 Unit/Ml Insuln.Pen) 0 unit SC Q6@0400,1000,1600,2200 [facility]; Protocol Last Admin: 01/14/20 03:41 Dose: Not Given Documented by: Ondansetron HCl (Ondansetron 4 Mg/2 Ml Vial) 4 mg IV Q8H PRN PRN PRN Reason: NAUSEA/VOMITING Senna/Docusate Sodium (Senna/Docusate Sodium 1 Tablet) 2 tablet PO BID [facility] Last Admin: 01/13/20 21:44 Dose: Not Given Documented by: Sodium Chloride (0.9% Saline Lock 10 Ml Syringe) 10 - 40 ml IV UD PRN PRN Reason: SALINE FLUSH Last Admin: 01/13/20 09:18 Dose: 10 ml Documented by: Medical Necessity - Tobacco Use Smoking Status: Unknown if ever smoked Assessment/Plan All Active Problems (Last Updated 01/09/20 @ 06:35 by Oxana Hightower) Non-ST elevated myocardial infarction (non-STEMI) (Acute 01/06/20) COVID-19 (Acute) Pneumonia due to 2019 novel coronavirus (Acute) Elevated troponin (Acute 01/06/20)
[2020-01-14] MEDS: Heparin Injection (Vial) 5,000 UNIT/ML VIAL 5000 UNIT SC ×2 (10:11→21:12)
--- NOTE | 2020-01-14 10:20 | NURSING ---
Very weak. barely able to shake head yes. keeps eyes closed most of the time. Pt wont talk, seems like he attempts but is too weak. spo2 2.5L via NC is 97% When asked pt if he is in pain, he shook his head. this nurse asked Mr. Otto twice and pt both times nodded his head yes.
[2020-01-14 10:32] LABS: Albumin, Serum 2.1 g/dL (3.2-5.0); BUN 90 mg/dL (7-18); BUN/Creat Ratio 36.3 RATIO (10-20); Calcium,Total 8.2 mg/dL (8.5-10.1); Chloride 119 mmol/L (98-107); Creatinine, Serum 2.48 mg/dL (0.70-1.30); EST Glomerular Filtration Rate 27 mL/min (>60); Est Glom Filt Rate - Afr Amer 32 mL/min (>60); Glucose 124 mg/dL (74-106); Potassium 4.7 mmol/L (3.5-5.1); Sodium Level 145 mmol/L (136-145)
[2020-01-14] MEDS: Morphine 4 MG/ML Syringe IV (11:38)
[2020-01-14] MEDS: 0.9% Saline Lock 10 ML Syringe IV (11:38)
--- NOTE | 2020-01-14 13:23 | PN_ITS ---
Patient Problems: Active and Suspected Problems (Last Updated 01/09/20 @ 06:35 by Oxana Hightower) COVID-19 (Acute) Pneumonia due to 2019 novel coronavirus (Acute) Subjective: Patient was seen and examined today, he remains somnolent and lethargic, he is able to shake his head no when I ask if there he has any pain. Patient's renal function was better today, I have reduced his IV rate to 60 cc/h, patient has what sounds like upper airway secretions that he is having trouble clearing, I added some Ativan onto his meds today. Family according to nursing is coming in at 3:00 today to visit with him. Objective: General: Patient is lethargic, he is able to shake his head yes or no to some questions but is not able to carry on a conversation. HEENT: Atraumatic, PERRLA, EOMI, Normocephalic Oral: Moist Mucosa Neck: Supple, No JVD, Trachea Midline, Thyroid Normal Size and Texture Lungs: Clear to auscultation, Normal air movement, No rhonchi, No wheeze, No rales Cardiovascular: Regular rate, Regular Rhythm, Normal S1, Normal S2, No murmurs, PMI Normal, No rub noted, No Gallop Abdomen: Bowel Sounds Present, Soft, Non Tender, Non-Distended Extremities: No edema, Capillary Refill Less than 3 Seconds Skin: No rashes, No breakdown Musculoskeletal: No Tenderness to Palpation of Joints or Extremities Neurological: Cranial nerves II-XII grossly intact, Neuro grossly intact, Sensory exam intact to light touch and pain Psych/Mental Status: - -Patient is somnolent, he is lethargic, he does not carry on any conversation - Physical Exam Vitals/I&O's: Vital Signs Temp Pulse Resp BP Pulse Ox 98.4 F 86 26 H 142/74 H 95 01/14/20 12:05 01/14/20 12:05 01/14/20 12:05 01/14/20 12:05 01/14/20 12:05 Oxygen Flow Rate (L/min) 2 Oxygen Delivery Method Nasal Cannula Weight: 83.6 kg Body Mass Index (BMI) 25.9 Intake and Output for Last 24 Hours 01/12/20 01/13/20 01/14/20 23:59 23:59 23:59 Intake Total 1931 1708.25 / 1708.25 Output Total 850 / 1100 850 / 850 525 / 525 Balance 1082 / 832 858.25 / 858.25 -525 / -525 Microbiology Past 72 Hours 01/05/20 19:00 Blood Culture (Wb) - Anticubital Right Blood Culture - Final No growth in 5 days. 01/05/20 19:00 Blood Culture (Wb) - Anticubital Left Blood Culture - Final No growth in 5 days. Laboratory Results 01/13/20 16:39: POC Glucose 140 H 01/13/20 21:31: POC Glucose 128 H 01/14/20 03:28: POC Glucose 118 H 01/14/20 09:31: Sodium 145, Potassium 4.7, Chloride 119 H, Carbon Dioxide 20.0 L , BUN 90 H, Creatinine 2.48 H, Estim Creat Clear Calc 23.30, Est GFR (MDRD) Af Amer 32 L, Est GFR (MDRD) Non-Af 27 L, BUN/Creatinine Ratio 36.3 H, Glucose 124 H, Calcium 8.2 L, Phosphorus 4.0, Albumin 2.1 L Current Medications Acetaminophen (Acetaminophen 650 Mg Suppository) 650 mg RECTAL Q6H PRN PRN PRN Reason: Pain 1-10 or Fever Last Admin: 01/08/20 10:46 Dose: 650 mg Documented by: Aspirin (Aspirin 81 Mg Tab.Chew) 81 mg PO DAILY@0800 [facility] Last Admin: 01/14/20 10:09 Dose: Not Given Documented by: Dexamethasone (Dexamethasone 4 Mg Tablet) 6 mg PO DAILY@0800 [facility] Stop: 01/15/20 08:01 Last Admin: 01/14/20 10:10 Dose: Not Given Documented by: Famotidine (Famotidine 20 Mg Tablet) 20 mg PO DAILY [facility] Last Admin: 01/14/20 10:09 Dose: Not Given Documented by: Heparin Sodium (Porcine) (Heparin Injection (Vial) 5,000 Unit/Ml Vial) 5,000 unit SC Q12 [facility] Last Admin: 01/14/20 10:11 Dose: 5,000 unit Documented by: Sodium Chloride () 250 mls @ 15 mls/hr IV .[id number] PRN PRN Reason: Saline Flush Sodium Chloride () 250 mls @ 15 mls/hr IV .[id number] PRN PRN Reason: Additional IVPB Infusion Dextrose/Sodium Chloride () 1,000 mls @ 60 mls/hr IV .[id number] [facility] Last Admin: 01/13/20 23:40 Dose: 75 mls/hr Documented by: Insulin Glargine (Insulin Glargine 100 Units/Ml Pen) 10 units SC BID [facility] Last Admin: 01/14/20 10:10 Dose: Not Given Documented by: Insulin Human Lispro (Insulin Lispro 100 Unit/Ml Insuln.Pen) 0 unit SC Q6@0400,1000,1600,2200 [facility]; Protocol Last Admin: 01/14/20 10:09 Dose: Not Given Documented by: Lorazepam (Lorazepam 2 Mg/Ml Syringe) 0.5 mg IV Q4H PRN PRN PRN Reason: ANXIETY/AGITATION Morphine Sulfate (Morphine 4 Mg/Ml Syringe) 4 mg IV Q3H PRN PRN PRN Reason: Pain Score 6-10 Last Admin: 01/14/20 11:38 Dose: 4 mg Documented by: Ondansetron HCl (Ondansetron 4 Mg/2 Ml Vial) 4 mg IV Q8H PRN PRN PRN Reason: NAUSEA/VOMITING Senna/Docusate Sodium (Senna/Docusate Sodium 1 Tablet) 2 tablet PO BID [facility] Last Admin: 01/14/20 10:09 Dose: Not Given Documented by: Sodium Chloride (0.9% Saline Lock 10 Ml Syringe) 10 - 40 ml IV UD PRN PRN Reason: SALINE FLUSH Last Admin: 01/14/20 11:38 Dose: 20 ml Documented by: Medical Necessity - Tobacco Use Smoking Status: Unknown if ever smoked Assessment/Plan All Active Problems (Last Updated 01/09/20 @ 06:35 by Oxana Hightower) Non-ST elevated myocardial infarction (non-STEMI) (Acute 01/06/20) COVID-19 (Acute) Pneumonia due to 2019 novel coronavirus (Acute) Elevated troponin (Acute 01/06/20) #1 acute COVID-19 infection with pneumonia-continue present care #2 acute hypoxic respiratory failure secondary to COVID-19 infection-continue to monitor oxygen, patient remains on low-flow oxygen #3 acute kidney injury on chronic kidney disease stage IV-I have reduced the patient's IV rate to 60 cc/h, his kidney functions look better today. #4 confusion-probably secondary to metabolic encephalopathy due to COVID-19 infection-continue to observe, prognosis grave, patient has had no oral intake for several days due to safety concerns. #5 cerebrovascular disease #6 coronary artery disease #7 ischemic cardiomyopathy #8 elevated cardiac enzymes-etiology unclear, may be as a result of COVID-19 infection, patient has kidney failure at this time and troponin elevations are unreliable. #9 elevated liver enzymes-etiology unknown. #10 dysphagia-secondary to overall weakness, speech therapy is working with the patient, patient is still n.p.o. Patient is a DNR CC arrest no intubation, patient's status has declined from yesterday, I suspect that the patient is actively dying at this time Inpatient E&M: 88347 Subs Hosp L2
[2020-01-14] MEDS: Dext 5%-0.45% NS 1,000 ML 60 ML IV (13:26)
--- NOTE | 2020-01-14 14:47 | NURSING ---
This nurse attempted to provided mouth care. pt let me wipe lips with green swab but would not open his mouth. Family coming in soon to see pt.
[2020-01-14 17:11] LABS: Bedside Glucose 122 mg/dL (70-110)
[2020-01-14 21:20] LABS: Bedside Glucose 105 mg/dL (70-110)
[2020-01-15] VITALS (7 sets, daily range): BP systolic 129–142; BP diastolic 67–103; PULSE 70–93; RESP 26–37; TEMP 36.3–37; O2SAT 93–96
[2020-01-15] MEDS: Morphine 4 MG/ML Syringe IV (00:51)
[2020-01-15] MEDS: 0.9% Saline Lock 10 ML Syringe IV (00:52)
[2020-01-15 03:06] LABS: Bedside Glucose 82 mg/dL (70-110)
[2020-01-15] MEDS: Dext 5%-0.45% NS 1,000 ML 60 ML IV ×2 (04:49→21:01)
--- NOTE | 2020-01-15 09:24 | PCM.PROGNOTE ---
Patient Problems: Active and Suspected Problems (Last Updated 01/09/20 @ 06:35 by Oxana Hightower) COVID-19 (Acute) Pneumonia due to 2019 novel coronavirus (Acute) Subjective: Patient was seen and examined today, he is somnolent, lethargic, and nonresponsive to verbal stimuli. Patient does not appear to be in any respiratory distress Objective: General: Patient is lethargic, he is not able to carry on a conversation. HEENT: Atraumatic, PERRLA, EOMI, Normocephalic Oral: Moist Mucosa Neck: Supple, No JVD, Trachea Midline, Thyroid Normal Size and Texture Lungs: Clear to auscultation, Normal air movement, No rhonchi, No wheeze, No rales Cardiovascular: Regular rate, Regular Rhythm, Normal S1, Normal S2, No murmurs, PMI Normal, No rub noted, No Gallop Abdomen: Bowel Sounds Present, Soft, Non Tender, Non-Distended Extremities: No edema, Capillary Refill Less than 3 Seconds Skin: No rashes, No breakdown Musculoskeletal: No Tenderness to Palpation of Joints or Extremities Neurological: Cranial nerves II-XII grossly intact, Neuro grossly intact, Sensory exam intact to light touch and pain Psych/Mental Status: - -Patient is somnolent, he is lethargic, he does not carry on any conversation - Physical Exam Vitals/I&O's: Vital Signs Temp Pulse Resp BP Pulse Ox 98.2 F 71 26 H 130/71 H 93 01/15/20 04:51 01/15/20 04:51 01/15/20 04:51 01/15/20 04:51 01/15/20 08:30 Oxygen Flow Rate (L/min) 2 Oxygen Delivery Method Nasal Cannula Weight: 81.1 kg Body Mass Index (BMI) 25.9 Intake and Output for Last 24 Hours 01/13/20 01/14/20 01/15/20 23:59 23:59 23:59 Intake Total 1708.25 / 1708.25 1000 / 1000 923 / 923 Output Total 850 / 850 675 / 850 425 / 425 Balance 858.25 / 858.25 325 / 150 498 / 498 Laboratory Results 01/14/20 09:31: Sodium 145, Potassium 4.7, Chloride 119 H, Carbon Dioxide 20.0 L, BUN 90 H, Creatinine 2.48 H, Estim Creat Clear Calc 23.30, Est GFR (MDRD) Af Amer 32 L, Est GFR (MDRD) Non-Af 27 L, BUN/Creatinine Ratio 36.3 H, Glucose 124 H, Calcium 8.2 L, Phosphorus 4.0, Albumin 2.1 L 01/14/20 17:03: POC Glucose 122 H 01/14/20 21:11: POC Glucose 105 01/15/20 02:59: POC Glucose 82 Current Medications Acetaminophen (Acetaminophen 650 Mg Suppository) 650 mg RECTAL Q6H PRN PRN PRN Reason: Pain 1-10 or Fever Last Admin: 01/08/20 10:46 Dose: 650 mg Documented by: Aspirin (Aspirin 81 Mg Tab.Chew) 81 mg PO DAILY@0800 [facility] Last Admin: 01/15/20 07:13 Dose: Not Given Documented by: Famotidine (Famotidine 20 Mg Tablet) 20 mg PO DAILY [facility] Last Admin: 01/15/20 07:14 Dose: Not Given Documented by: Heparin Sodium (Porcine) (Heparin Injection (Vial) 5,000 Unit/Ml Vial) 5,000 unit SC Q12 [facility] Last Admin: 01/14/20 21:12 Dose: 5,000 unit Documented by: Sodium Chloride () 250 mls @ 15 mls/hr IV .[id number] PRN PRN Reason: Saline Flush Sodium Chloride () 250 mls @ 15 mls/hr IV .[id number] PRN PRN Reason: Additional IVPB Infusion Dextrose/Sodium Chloride () 1,000 mls @ 60 mls/hr IV .[id number] [facility] Last Admin: 01/15/20 04:49 Dose: 60 mls/hr Documented by: Insulin Glargine (Insulin Glargine 100 Units/Ml Pen) 10 units SC BID [facility] Last Admin: 01/15/20 07:14 Dose: Not Given Documented by: Insulin Human Lispro (Insulin Lispro 100 Unit/Ml Insuln.Pen) 0 unit SC Q6@0400,1000,1600,2200 [facility]; Protocol Last Admin: 01/15/20 07:14 Dose: Not Given Documented by: Lorazepam (Lorazepam 2 Mg/Ml Syringe) 0.5 mg IV Q4H PRN PRN PRN Reason: ANXIETY/AGITATION Morphine Sulfate (Morphine 4 Mg/Ml Syringe) 4 mg IV Q3H PRN PRN PRN Reason: Pain Score 6-10 Last Admin: 01/15/20 00:51 Dose: 4 mg Documented by: Ondansetron HCl (Ondansetron 4 Mg/2 Ml Vial) 4 mg IV Q8H PRN PRN PRN Reason: NAUSEA/VOMITING Senna/Docusate Sodium (Senna/Docusate Sodium 1 Tablet) 2 tablet PO BID [facility] Last Admin: 01/15/20 07:14 Dose: Not Given Documented by: Sodium Chloride (0.9% Saline Lock 10 Ml Syringe) 10 - 40 ml IV UD PRN PRN Reason: SALINE FLUSH Last Admin: 01/15/20 00:52 Dose: 10 ml Documented by: Medical Necessity - Tobacco Use Smoking Status: Unknown if ever smoked Assessment/Plan All Active Problems (Last Updated 01/09/20 @ 06:35 by Oxana Hightower) Non-ST elevated myocardial infarction (non-STEMI) (Acute 01/06/20) COVID-19 (Acute) Pneumonia due to 2019 novel coronavirus (Acute) Elevated troponin (Acute 01/06/20) #1 acute COVID-19 infection with pneumonia-continue present care #2 acute hypoxic respiratory failure secondary to COVID-19 infection-continue to monitor oxygen, patient remains on low-flow oxygen #3 acute kidney injury on chronic kidney disease stage IV. #4 confusion-probably secondary to metabolic encephalopathy due to COVID-19 infection #5 cerebrovascular disease #6 coronary artery disease #7 ischemic cardiomyopathy #8 elevated cardiac enzymes-etiology unclear, may be as a result of COVID-19 infection, patient has kidney failure at this time and troponin elevations are unreliable. #9 elevated liver enzymes-etiology unknown. #10 dysphagia-secondary to overall weakness-patient remains n.p.o. Patient is a DNR CC arrest no intubation, patient's status has declined from yesterday, I suspect that the patient is actively dying at this time Inpatient E&M: [id number] Subs Hosp L2
[2020-01-15] MEDS: Heparin Injection (Vial) 5,000 UNIT/ML VIAL 5000 UNIT SC ×2 (10:28→21:02)
[2020-01-15 11:35] LABS: Bedside Glucose 115 mg/dL (70-110)
[2020-01-15 17:56] LABS: Bedside Glucose 107 mg/dL (70-110)
[2020-01-16 00:31] LABS: Bedside Glucose 111 mg/dL (70-110)
[2020-01-16 02:36] LABS: Bedside Glucose 123 mg/dL (70-110)
[2020-01-16 02:37] VITALS: BP 142/60; PULSE 70; RESP 32; TEMP 37; O2SAT 98
[2020-01-16 07:12] LABS: Albumin, Serum 2.2 g/dL (3.2-5.0); BUN 73 mg/dL (7-18); BUN/Creat Ratio 30.9 RATIO (10-20); Calcium,Total 8.5 mg/dL (8.5-10.1); Chloride 120 mmol/L (98-107); Creatinine, Serum 2.36 mg/dL (0.70-1.30); EST Glomerular Filtration Rate 28 mL/min (>60); Est Glom Filt Rate - Afr Amer 34 mL/min (>60); Estimated Creatinine Clearance 24.49 ml/min; Glucose 137 mg/dL (74-106); Phosphorus 3.7 mg/dL (2.5-4.9); Potassium 4.7 mmol/L (3.5-5.1); Sodium Level 149 mmol/L (136-145)
--- NOTE | 2020-01-16 08:52 | PN_ITS ---
Patient Problems: Active and Suspected Problems (Last Updated 01/09/20 @ 06:35 by Oxana Hightower) COVID-19 (Acute) Pneumonia due to 2019 novel coronavirus (Acute) Subjective: Patient was seen and examined today, he remains minimally responsive-he answers with yes or no when asked questions but does not carry on conversation. Patient is still n.p.o., speech will see the patient today, he still requiring nasal cannula oxygen at a minimal rate. Objective: General: Patient is lethargic, he is not able to carry on a conversation. HEENT: Atraumatic, PERRLA, EOMI, Normocephalic Oral: Moist Mucosa Neck: Supple, No JVD, Trachea Midline, Thyroid Normal Size and Texture Lungs: Clear to auscultation, Normal air movement, No rhonchi, No wheeze, No rales Cardiovascular: Regular rate, Regular Rhythm, Normal S1, Normal S2, No murmurs, PMI Normal, No rub noted, No Gallop Abdomen: Bowel Sounds Present, Soft, Non Tender, Non-Distended Extremities: No edema, Capillary Refill Less than 3 Seconds Skin: No rashes, No breakdown Musculoskeletal: No Tenderness to Palpation of Joints or Extremities Neurological: Cranial nerves II-XII grossly intact, Neuro grossly intact, Sensory exam intact to light touch and pain Psych/Mental Status: - -Patient is somnolent, he is lethargic, he does not carry on any conversation, patient answers questions with a simple yes or no. - Physical Exam Vitals/I&O's: Vital Signs Temp Pulse Resp BP Pulse Ox 98.6 F 70 32 H 142/60 H 98 01/16/20 02:37 01/16/20 02:37 01/16/20 02:37 01/16/20 02:37 01/16/20 02:37 Oxygen Flow Rate (L/min) 2 Oxygen Delivery Method Nasal Cannula Weight: 80.9 kg Body Mass Index (BMI) 25.9 Intake and Output for Last 24 Hours 01/14/20 01/15/20 01/16/20 23:59 23:59 23:59 Intake Total 1000 / 1000 1895 / 1895 Output Total 675 / 850 875 / 875 400 / 400 Balance 325 / 150 1020 / 1020 -400 / -400 Laboratory Results 01/15/20 11:06: POC Glucose 115 H 01/15/20 16:08: POC Glucose 107 01/15/20 20:47: POC Glucose 111 H 01/16/20 02:22: POC Glucose 123 H 01/16/20 06:32: Sodium 149 H, Potassium 4.7, Chloride 120 H, Carbon Dioxide 24.0, BUN 73 H, Creatinine 2.36 H, Estim Creat Clear Calc 24.49, Est GFR (MDRD) Af Amer 34 L, Est GFR (MDRD) Non-Af 28 L, BUN/Creatinine Ratio 30.9 H, Glucose 137 H, Calcium 8.5, Phosphorus 3.7, Albumin 2.2 L Current Medications Acetaminophen (Acetaminophen 650 Mg Suppository) 650 mg RECTAL Q6H PRN PRN PRN Reason: Pain 1-10 or Fever Last Admin: 01/08/20 10:46 Dose: 650 mg Documented by: Aspirin (Aspirin 81 Mg Tab.Chew) 81 mg PO DAILY@0800 [facility] Last Admin: 01/15/20 07:13 Dose: Not Given Documented by: Famotidine (Famotidine 20 Mg Tablet) 20 mg PO DAILY [facility] Last Admin: 01/15/20 07:14 Dose: Not Given Documented by: Heparin Sodium (Porcine) (Heparin Injection (Vial) 5,000 Unit/Ml Vial) 5,000 unit SC Q12 [facility] Last Admin: 01/15/20 21:02 Dose: 5,000 unit Documented by: Sodium Chloride () 250 mls @ 15 mls/hr IV .[id number] PRN PRN Reason: Saline Flush Sodium Chloride () 250 mls @ 15 mls/hr IV .[id number] PRN PRN Reason: Additional IVPB Infusion Dextrose/Sodium Chloride () 1,000 mls @ 60 mls/hr IV .[id number] [facility] Last Admin: 01/15/20 21:01 Dose: 60 mls/hr Documented by: Insulin Glargine (Insulin Glargine 100 Units/Ml Pen) 10 units SC BID [facility] Last Admin: 01/15/20 21:01 Dose: Not Given Documented by: Insulin Human Lispro (Insulin Lispro 100 Unit/Ml Insuln.Pen) 0 unit SC Q6@0400,1000,1600,2200 [facility]; Protocol Last Admin: 01/16/20 02:36 Dose: Not Given Documented by: Lorazepam (Lorazepam 2 Mg/Ml Syringe) 0.5 mg IV Q4H PRN PRN PRN Reason: ANXIETY/AGITATION Morphine Sulfate (Morphine 4 Mg/Ml Syringe) 4 mg IV Q3H PRN PRN PRN Reason: Pain Score 6-10 Last Admin: 01/15/20 00:51 Dose: 4 mg Documented by: Ondansetron HCl (Ondansetron 4 Mg/2 Ml Vial) 4 mg IV Q8H PRN PRN PRN Reason: NAUSEA/VOMITING Senna/Docusate Sodium (Senna/Docusate Sodium 1 Tablet) 2 tablet PO BID [facility] Last Admin: 01/15/20 18:56 Dose: Not Given Documented by: Sodium Chloride (0.9% Saline Lock 10 Ml Syringe) 10 - 40 ml IV UD PRN PRN Reason: SALINE FLUSH Last Admin: 01/15/20 00:52 Dose: 10 ml Documented by: Medical Necessity - Tobacco Use Smoking Status: Unknown if ever smoked Assessment/Plan All Active Problems (Last Updated 01/09/20 @ 06:35 by Oxana Hightower) Non-ST elevated myocardial infarction (non-STEMI) (Acute 01/06/20) COVID-19 (Acute) Pneumonia due to 2019 novel coronavirus (Acute) Elevated troponin (Acute 01/06/20) #1 acute COVID-19 infection with pneumonia-continue present care #2 acute hypoxic respiratory failure secondary to COVID-19 infection-continue to monitor oxygen, patient remains on low-flow oxygen #3 acute kidney injury on chronic kidney disease stage IV. #4 confusion-probably secondary to metabolic encephalopathy due to COVID-19 infection #5 cerebrovascular disease #6 coronary artery disease #7 ischemic cardiomyopathy #8 elevated cardiac enzymes-etiology unclear, may be as a result of COVID-19 infection, patient has kidney failure at this time and troponin elevations are unreliable. #9 elevated liver enzymes-etiology unknown. #10 dysphagia-secondary to overall weakness-patient remains n.p.o. Patient is a DNR CC arrest no intubation, patient's status has declined from yesterday, I suspect that the patient is actively dying at this time, it is unknown whether the patient's family want to take him home under hospice care. I will contact the patient's daughter and discussed this with her. Inpatient E&M: [id number] Subs Hosp L2
[2020-01-16] MEDS: Heparin Injection (Vial) 5,000 UNIT/ML VIAL 5000 UNIT SC ×2 (09:29→20:54)
[2020-01-16 09:33] VITALS: BP 143/58; PULSE 81; RESP 24; TEMP 36.2; O2SAT 97
[2020-01-16 09:56] LABS: Bedside Glucose 136 mg/dL (70-110)
[2020-01-16] MEDS: Dext 5%-0.45% NS 1,000 ML 60 ML IV (13:26)
--- NOTE | 2020-01-16 13:55 | NURSING ---
Dressing to sacrum due to be changed tomorrow. patient's prognosis is very poor. has had no intake for 8 days now. will leave dressing in place at this time.
[2020-01-16 16:45] LABS: Bedside Glucose 130 mg/dL (70-110)
[2020-01-16 20:51] VITALS: BP 112/93; PULSE 100; RESP 22; TEMP 35.8; O2SAT 95
[2020-01-16 21:10] LABS: Bedside Glucose 149 mg/dL (70-110)
[2020-01-17] VITALS (13 sets, daily range): BP systolic 124–188; BP diastolic 52–122; PULSE 54–114; RESP 24–40; TEMP 36–36.8; O2SAT 77–100
[2020-01-17 03:00] LABS: Bedside Glucose 131 mg/dL (70-110)
--- NOTE | 2020-01-17 09:03 | NURSING ---
female phoned in states she is pt daughter Nathalia, and updated on pt status. Nathalia states she would like to have Hospice involved at this time. informed Nathalia will transfer to [facility] to speak to and also inform Dr. Vences. Nathalia informed that the decision most likely would need to be made by pt spouse- pt daughter states 'I know, my mom is still in bed sleeping, when she wakes up I will have her call in and let you know that. phone call transfered to [facility]. Text to Md as well to update.
[2020-01-17] MEDS: Heparin Injection (Vial) 5,000 UNIT/ML VIAL 5000 UNIT SC ×2 (09:18→20:05)
[2020-01-17 09:26] LABS: Bedside Glucose 126 mg/dL (70-110)
--- NOTE | 2020-01-17 10:08 | NURSING ---
female phoned in, states she is pt daughter nathalia. Nathalia states a message was left at Dr. Fagan office to have Heath's pacemaker turned off and Nathalia wanted to let staff know. Said nurse inquired if pt spouse Aixa was available to talk- Nathalia states yes and then said nurse speaks with Aixa on the phone. Aixa states she would like pt pacemaker turned off. Shared/inquired with Aixa regarding earlier conversation regarding Hospice. Aixa states yes, i am okay with Hospice. Aixa agrees to then have phone call be transfered to [facility]onal[facility] to speak with her directly for planning. Phone call transfered. Cortext to Dr. Vences.
--- NOTE | 2020-01-17 10:09 | CASEMGMT ---
Social Work Note SW received message from pt's daughter Nathalia requesting call back, stating to call [phone]. SW placed a call to this number and spoke with pt's Aixa. Aixa states agreeable to Hospice referral. Aixa states she placed a call to pt's heart doctor to request pt's pacemaker to be turned off. Aixa then put pt's daughter Nathalia on the phone. Nathalia confirms plan is for Hospice referral and states plan would be for pt to return home with Hospice. Nathalia states Palliative/Hospice was going to be set up before pt came to the hospital but that had to be put on hold as pt was admitted to [facility]. AVILA explained Hospice referral process and that this worker would make Hospice referral to [facility] and then they would call and speak with Aixa/Nathalia regarding Hospice services. Kay states to have [facility] call [phone]. Nathalia states understanding, asked to be transferred to RN to update RN about request for pacemaker to be turned off. AVILA transferred call to charge nurse. AVILA then received call from RN stating Aixa was on the phone. SW received call. Aixa states she was told to just make sure all staff is aware of pt's plan and on same page. Aixa states Nathalia is able to speak for Aixa. AVILA explained to Aixa the Hospice referral process and that this worker will make Hospice referral. Axia states she thinks once pt's pacemaker is turned off, pt will not last long. AVILA offered support to Aixa. AVILA will make Hospice referral. Anika Brown ORGANIC LAB WORKER, PARTY PLAN SALES UNIT SALES LEADER
[2020-01-17] MEDS: LORazepam 2 MG/ML Syringe 0.5 MG IV ×2 (11:12→17:07)
[2020-01-17] MEDS: 0.9% Saline Lock 10 ML Syringe IV ×3 (11:13→17:09)
--- NOTE | 2020-01-17 11:15 | NURSING ---
Dr. Vences on the phone with pt daughter Nathalia to update on pt status.
--- NOTE | 2020-01-17 11:17 | NURSING ---
Nathalia and pt spouse will be arriving to see pt in about 1 hour.
--- NOTE | 2020-01-17 11:22 | NURSING ---
John Machado from lab was in room attempting to draw blood, she pushed the code button, states she thinks he might have had a seizure. Dr Vences responded and ordered to give Ativan.. Ativan was given, and Dr Norris notified the family.
--- NOTE | 2020-01-17 11:38 | CASEMGMT ---
Social Work Note SW placed a call to [facility] and spoke with CRYSTAL Asif and provided hospice referral. SW was getting ready to fax referral when code was called for pt. This SW went down to [facility], spoke with physician. Family is coming in today to see pt. SW to hold off on Hospice referral, will be available to meet with pt's family if needed. Anika Brown SUPERVISOR/PORT DIRECTOR, PHOTOENGRAVING SKETCH MAKER
[2020-01-17] MEDS: Morphine 4 MG/ML Syringe IV (11:42)
--- NOTE | 2020-01-17 11:46 | NURSING ---
Daughter Nathalia arrived. Eze patient liason with daughter.
--- NOTE | 2020-01-17 12:03 | ED.RN ---
1150 Daughter in room, denies needs any questions, informed this nurse would have stayed with pt. she stated I did not want hiim to be alone. pt resting quietly mow.
--- NOTE | 2020-01-17 13:22 | CASEMGMT ---
Social Work Note AVILA spoke with pt's daughter Nathalia. Nathalia currently at [facility] visiting pt. SW offered support to Nathalia. Nathalia states that she is doing ok. AVILA let Nathalia know that this worker is available if she needs anything. Nathalia states understanding, denied additional needs or concerns at this time. Anika Brown PRODUCT ENGINEERING MANAGER, PUPPET MAKER
--- NOTE | 2020-01-17 14:51 | CASEMGMT ---
RN CM Note: Case discussed with Dr. Vences. Hospice referral on hold for tonight due to patient's condition. Will reassess in am for Hospice. AVILA Sanz. Carrie BOBBYN RN ACM
--- NOTE | 2020-01-17 15:15 | PCM.PROGNOTE ---
Patient Problems: Active and Suspected Problems (Last Updated 01/09/20 @ 06:35 by Oxana Hightower) COVID-19 (Acute) Pneumonia due to 2019 novel coronavirus (Acute) Subjective: Patient was seen and examined this morning, he is nonverbal and appears somnolent and lethargic. Later on this morning, patient had an episode which appeared to be seizure-like in nature, afterwards he became apneic for 15 to 20 seconds at a time, I was able to remove his oxygen without oxygen desaturation. I do not know with this episode consisted of, I talked to the daughter by phone and let her know what happened. Patient's daughter consented to have hospice see the patient at their home but I am reluctant to discharge him today and that he might further deteriorate today and here in the hospital. Patient is being medicated for respiratory distress as needed. Objective: General: Patient is lethargic, he is not able to carry on a conversation. HEENT: Atraumatic, PERRLA, EOMI, Normocephalic Oral: Moist Mucosa Neck: Supple, No JVD, Trachea Midline, Thyroid Normal Size and Texture Lungs: Clear to auscultation, Normal air movement, No rhonchi, No wheeze, No rales, patient is apneic at times for several seconds Cardiovascular: Regular rate, Regular Rhythm, Normal S1, Normal S2, No murmurs, PMI Normal, No rub noted, No Gallop Abdomen: Bowel Sounds Present, Soft, Non Tender, Non-Distended Extremities: No edema, Capillary Refill Less than 3 Seconds Skin: No rashes, No breakdown Musculoskeletal: No Tenderness to Palpation of Joints or Extremities Neurological: Cranial nerves II-XII grossly intact, Neuro grossly intact, Sensory exam intact to light touch and pain Psych/Mental Status: - -Patient is somnolent, he is lethargic, he does not carry on any conversation - Physical Exam Vitals/I&O's: Vital Signs Temp Pulse Resp BP Pulse Ox 96.9 F L 93 36 H 128/66 H 91 01/17/20 13:49 01/17/20 13:49 01/17/20 13:49 01/17/20 13:49 01/17/20 11:34 Oxygen Flow Rate (L/min) 2 Oxygen Delivery Method Room Air Weight: 80.824 kg Body Mass Index (BMI) 25.9 Intake and Output for Last 24 Hours 01/15/20 01/16/20 01/17/20 23:59 23:59 23:59 Intake Total 1895 / 1895 985 / 985 870 / 870 Output Total 875 / 875 1000 / 1000 525 / 525 Balance 1020 / 1020 -15 / -15 345 / 345 Laboratory Results 01/16/20 16:36: POC Glucose 130 H 01/16/20 20:47: POC Glucose 149 H 01/17/20 02:50: POC Glucose 131 H 01/17/20 08:54: POC Glucose 126 H Current Medications Acetaminophen (Acetaminophen 650 Mg Suppository) 650 mg RECTAL Q6H PRN PRN PRN Reason: Pain 1-10 or Fever Last Admin: 01/08/20 10:46 Dose: 650 mg Documented by: Aspirin (Aspirin 81 Mg Tab.Chew) 81 mg PO DAILY@0800 [facility] Last Admin: 01/17/20 07:49 Dose: Not Given Documented by: Famotidine (Famotidine 20 Mg Tablet) 20 mg PO DAILY [facility] Last Admin: 01/17/20 07:50 Dose: Not Given Documented by: Heparin Sodium (Porcine) (Heparin Injection (Vial) 5,000 Unit/Ml Vial) 5,000 unit SC Q12 [facility] Last Admin: 01/17/20 09:18 Dose: 5,000 unit Documented by: Sodium Chloride () 250 mls @ 15 mls/hr IV .[id number] PRN PRN Reason: Saline Flush Sodium Chloride () 250 mls @ 15 mls/hr IV .[id number] PRN PRN Reason: Additional IVPB Infusion Insulin Glargine (Insulin Glargine 100 Units/Ml Pen) 10 units SC BID [facility] Last Admin: 01/17/20 08:40 Dose: Not Given Documented by: Lorazepam (Lorazepam 2 Mg/Ml Syringe) 0.5 mg IV Q4H PRN PRN PRN Reason: ANXIETY/AGITATION Morphine Sulfate (Morphine 4 Mg/Ml Syringe) 4 mg IV Q3H PRN PRN PRN Reason: Pain Score 1-10 Last Admin: 01/17/20 11:42 Dose: 4 mg Documented by: Ondansetron HCl (Ondansetron 4 Mg/2 Ml Vial) 4 mg IV Q8H PRN PRN PRN Reason: NAUSEA/VOMITING Senna/Docusate Sodium (Senna/Docusate Sodium 1 Tablet) 2 tablet PO BID [facility] Last Admin: 01/17/20 07:50 Dose: Not Given Documented by: Sodium Chloride (0.9% Saline Lock 10 Ml Syringe) 10 - 40 ml IV UD PRN PRN Reason: SALINE FLUSH Last Admin: 01/17/20 11:44 Dose: 20 ml Documented by: Medical Necessity - Tobacco Use Smoking Status: Unknown if ever smoked Assessment/Plan All Active Problems (Last Updated 01/09/20 @ 06:35 by Oxana Hightower) Non-ST elevated myocardial infarction (non-STEMI) (Acute 01/06/20) COVID-19 (Acute) Pneumonia due to 2019 novel coronavirus (Acute) Elevated troponin (Acute 01/06/20) #1 acute COVID-19 infection with pneumonia-continue present care #2 acute hypoxic respiratory failure secondary to COVID-19 infection-continue to monitor oxygen, patient now on room air #3 acute kidney injury on chronic kidney disease stage IV. #4 confusion-probably secondary to metabolic encephalopathy due to COVID-19 infection #5 cerebrovascular disease #6 coronary artery disease #7 ischemic cardiomyopathy #8 elevated cardiac enzymes-etiology unclear, may be as a result of COVID-19 infection, patient has kidney failure at this time and troponin elevations are unreliable. #9 elevated liver enzymes-etiology unknown. #10 dysphagia-secondary to overall weakness-patient remains n.p.o. Patient is a DNR CC arrest no intubation, patient's status has declined from yesterday, he had an episode today which may have been a seizure, I prefer to keep him in the hospital at this time because I think he may be declining further and will probably in the next 12 to 24 hours. Patient's condition stabilizes slightly, it may be possible to discharge him home with hospice care tomorrow. Inpatient E&M: 55182 Subs Hosp L2
--- NOTE | 2020-01-17 15:20 | CHAPLAIN ---
Type of Pastoral Visit ___ Initial Visit ___ Follow-up Visit ___ On-call Visit ___ General Patient Visit ___ Spiritual Assessment ___ Family Conference ___ Bereavement ___ Rapid Response _x__ Code Blue _x__ Other (describe below) Pastoral Care Referral From ___ Patient ___ Family _x__ Nurse _x__ Physician _x__ Arson And Bomb Investigator ___ Fax Machine Operator _x__ Other (describe below) Sacrament/Intervention ___ Active listening ___ Anointing ___ Sabianism ___ Bereavement ___ Communion ___ Linh exploration ___ ___ Life review _x__ Prayer ___ Reconciliation ___ Sacrament of Sick _x__ Supportive presence ___ Wedding _x__ Other (describe below) Pastoral Comments initially responded to code blue; code blue was called off and pt was living; this loom checker was notified by AVILA, , and Visual Basic .Net Developer that family members would be arriving around noon and requested support of loom checker; arrived at noon and daughter of patient had already arrived; met with daughter and offered support and prayer; daughter stated that we are ok with this and I just want to be here so that he is not alone; daughter indicates that patient's spouse is at home and unable to come to hospital; 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
--- NOTE | 2020-01-17 18:33 | NURSING ---
granddaughter Tessy Duff is now at bedside.
[2020-01-18 03:04] VITALS: BP 113/63; PULSE 82; RESP 32; TEMP 36.1; O2SAT 92
[2020-01-18 03:05] VITALS: PULSE 82; RESP 32; O2SAT 92
[2020-01-18] MEDS: 0.9% Saline Lock 10 ML Syringe IV ×3 (03:07→17:19)
[2020-01-18] MEDS: LORazepam 2 MG/ML Syringe 0.5 MG IV ×3 (03:08→17:19)
[2020-01-18 07:00] VITALS: O2SAT 92
[2020-01-18 09:00] VITALS: BP 103/58; PULSE 101; RESP 36; TEMP 36.1; O2SAT 92
[2020-01-18] MEDS: Heparin Injection (Vial) 5,000 UNIT/ML VIAL 5000 UNIT SC (10:13)
[2020-01-18 10:31] LABS: Bedside Glucose 125 mg/dL (70-110)
--- NOTE | 2020-01-18 14:00 | PN_ITS ---
Patient Problems: Active and Suspected Problems (Last Updated 01/09/20 @ 06:35 by Oxana Hightower) COVID-19 (Acute) Pneumonia due to 2019 novel coronavirus (Acute) Subjective: I presume you have had a seizure versus a code yesterday and had significant decline. It was discussed with family about proceeding with hospice which they agreed to. Today he is oxygenating okay while on oxygen however he did desat to 77% on room air last night. This morning he only responds to painful stimuli and does not open his eyes to voice. I did call the daughter and discussed the situation with her and she would prefer if we proceed with hospice on the inpatient side, and therefore will make him a DNR CC. Vitals/I&O's: Vital Signs Temp Pulse Resp BP Pulse Ox 97.0 F L 101 H 36 H 103/58 L 92 01/18/20 09:00 01/18/20 09:00 01/18/20 09:00 01/18/20 09:00 01/18/20 09:00 Oxygen Flow Rate (L/min) 3 Oxygen Delivery Method Nasal Cannula Weight: 179 lb 14.355 oz Body Mass Index (BMI) 25.9 Intake and Output for Last 24 Hours 01/16/20 01/17/20 01/18/20 23:59 23:59 23:59 Intake Total 985 / 985 870 / 870 0 / 0 Output Total 1000 / 1000 525 / 600 100 / 100 Balance -15 / -15 345 / 270 -100 / -100 General: Lethargic HEENT: Atraumatic, PERRLA, Normocephalic Oral: Moist Mucosa Neck: Supple, No JVD Lungs: Normal air movement, No rhonchi, No wheeze, No rales, Diminished, Tachypneic Cardiovascular: Regular rate, Regular Rhythm, Normal S1, Normal S2, No murmurs Abdomen: Soft, Non Tender, Non-Distended, No Hepato-splenomegaly Extremities: No edema, Capillary Refill Less than 3 Seconds Skin: No rashes, No breakdown Neurological: - - Lethargic and does not follow commands Psych/Mental Status: - - Lethargic does not follow commands and is not interactive Laboratory Results 01/18/20 10:18: POC Glucose 125 H Current Medications Acetaminophen (Acetaminophen 650 Mg Suppository) 650 mg RECTAL Q6H PRN PRN PRN Reason: Pain 1-10 or Fever Last Admin: 01/08/20 10:46 Dose: 650 mg Documented by: Aspirin (Aspirin 81 Mg Tab.Chew) 81 mg PO DAILY@0800 [facility] Last Admin: 01/18/20 08:28 Dose: Not Given Documented by: Famotidine (Famotidine 20 Mg Tablet) 20 mg PO DAILY [facility] Last Admin: 01/18/20 08:28 Dose: Not Given Documented by: Sodium Chloride () 250 mls @ 15 mls/hr IV .[id number] PRN PRN Reason: Saline Flush Sodium Chloride () 250 mls @ 15 mls/hr IV .[id number] PRN PRN Reason: Additional IVPB Infusion Insulin Glargine (Insulin Glargine 100 Units/Ml Pen) 10 units SC BID [facility] Last Admin: 01/18/20 10:20 Dose: Not Given Documented by: Lorazepam (Lorazepam 2 Mg/Ml Syringe) 0.5 mg IV Q4H [facility] Morphine Sulfate (Morphine 4 Mg/Ml Syringe) 4 mg IV Q3H [facility] Ondansetron HCl (Ondansetron 4 Mg/2 Ml Vial) 4 mg IV Q8H PRN PRN PRN Reason: NAUSEA/VOMITING Senna/Docusate Sodium (Senna/Docusate Sodium 1 Tablet) 2 tablet PO BID [facility] Last Admin: 01/18/20 08:28 Dose: Not Given Documented by: Sodium Chloride (0.9% Saline Lock 10 Ml Syringe) 10 - 40 ml IV UD PRN PRN Reason: SALINE FLUSH Last Admin: 01/18/20 03:07 Dose: 10 ml Documented by: Medical Necessity - Tobacco Use Smoking Status: Unknown if ever smoked Assessment/Plan All Active Problems (Last Updated 01/09/20 @ 06:35 by Oxana Hightower) Non-ST elevated myocardial infarction (non-STEMI) (Acute 01/06/20) COVID-19 (Acute) Pneumonia due to 2019 novel coronavirus (Acute) Elevated troponin (Acute 01/06/20) 1. Acute hypoxic respiratory failure secondary to COVID-19 pneumonia/LUCIA on CKD 4 -He did complete his course of Decadron but did not receive remdesivir or convalescent plasma -Was initially intubated on admission -He has continued to decline throughout his course and I discussed the situation with the family. We had a discussion about transitioning to hospice and proceeding with inpatient versus home hospice. They felt that they were unable to take care of him at home help review and inpatient hospice. We will proceed with making him a DNR CC and schedule his morphine and his Ativan especially given his tachypnea. Discussion lasted approximately 20 minutes 2. CAD status post CABG and stents/HTN/HLD/chronic combined CHF/elevated troponins -Given that he we are proceeding with hospice on the inpatient side, will discontinue his blood pressure medications -If necessary can resume Lasix for comfort if he shows signs of being short of breath 3. Elevated LFT -Etiology likely related to the Covid infection -Was trending down DVT: None Inpatient E&M: 17877 Subs Hosp L2 Procedures: 66763 Advncd Care Plan 30 Min
--- NOTE | 2020-01-18 14:11 | CASEMGMT ---
Social Work SW spoke with physician who states pt family requesting inpatient hospice. [facility] requires physician to physician referral for IPU. Dr. Mills made aware to contact Dr. Schumacher. AVILA will remain available for assistance with transfer to hospice or home with hospice if warranted. RONY Suarez
[2020-01-18] MEDS: Morphine 4 MG/ML Syringe IV ×2 (14:47→17:19)
[2020-01-18 15:00] VITALS: BP 110/62; PULSE 98; RESP 36; TEMP 36.1; O2SAT 92
--- NOTE | 2020-01-18 19:15 | PCM.DEATH ---
Preliminary Cause of Acute hypoxic respiratory failure secondary to COVID-19 pneumonia Date of Admission: 01/05/20 Date of : 01/18/20 - Principle Diagnosis Acute hypoxic respiratory failure COVID-19 pneumonia LUCIA CKD 4 Problem List: Active and Suspected Problems (Last Updated 01/09/20 @ 06:35 by Oxana Hightower) COVID-19 (Acute) Pneumonia due to 2019 novel coronavirus (Acute) Hospital Course Mr. Otto is an 84-year-old male who presented to the hospital on 01/05/2020 with acute hypoxic respiratory failure with oxygen saturations at 80% on room air. Early on in the admission he was intubated and then he was successfully extubated however he remained encephalopathic and not taking in any significant p.o. nutrition. Yesterday he had a code versus a seizure and he was made DNR CCA at that time. He has continued to be unresponsive and difficult to arouse today so I did discuss with the family about proceeding with hospice which they agreed to, and the plan was to proceed with transfer to inpatient hospice unit tomorrow morning. At approximately 1800 hrs. nursing staff checked on the patient and he was at his baseline however on a recheck at 1833 he was found to be pulseless and not breathing. Time of 183 on 01/18/2020. Inpatient E&M: [id number] Disch Hosp
== END 2020-01-18 18:33 | DRG 208 ==
LOC: ED 19:17 → ICU 22:22 → MS2 01-08 11:58
PROVIDERS: Anesthesiology; Internal Medicine; Internal Medicine Critical Care Medicine; Internal Medicine Nephrology; Admitting Provider Hospitalist; Emergency Provider Emergency Medicine; PCP Family Medicine; Visit Provider Family Medicine
DX: U07.1 COVID-19 (principal); J12.89 Other viral pneumonia; J96.01 Acute respiratory failure with hypoxia; I21.4 Non-ST elevation (NSTEMI) myocardial infarction; N17.0 Acute kidney failure with tubular necrosis; G93.41 Metabolic encephalopathy; N18.4 Chronic kidney disease, stage 4 (severe); I50.42 Chronic combined systolic (congestive) and diastolic (congestive) heart failure; I13.0 Hypertensive heart and chronic kidney disease with heart failure and stage 1 through stage 4 chronic kidney disease, or unspecified chronic kidney disease; E87.2 Acidosis; E87.0 Hyperosmolality and hypernatremia; E11.22 Type 2 diabetes mellitus with diabetic chronic kidney disease; Z86.73 Personal history of transient ischemic attack (TIA), and cerebral infarction without residual deficits; Z95.0 Presence of cardiac pacemaker; Z95.5 Presence of coronary angioplasty implant and graft; Z95.1 Presence of aortocoronary bypass graft; Z79.899 Other long term (current) drug therapy; Z66 Do not resuscitate; R34 Anuria and oliguria; I25.10 Atherosclerotic heart disease of native coronary artery without angina pectoris; I25.5 Ischemic cardiomyopathy; I95.9 Hypotension, unspecified; I48.91 Unspecified atrial fibrillation; R60.9 Edema, unspecified; T38.0X5A Adverse effect of glucocorticoids and synthetic analogues, initial encounter; E88.09 Other disorders of plasma-protein metabolism, not elsewhere classified; R13.10 Dysphagia, unspecified; Z23 Encounter for immunization
CPT/HCPCS: 31500; 31720; 36415; 36600; 51702; 71045; 80048; 80053; 80069; 81001; 82570; 82803; 82962; 83036; 83605; 83735; 84100; 84145; 84300; 84484; 85025; 85610; 85730; 86900; 86901; 87040; 87081; 87086; 87340; 87449; 87633; 87635; 90937; 92507; 92526; 92610; 93005; 94002; 94003; 94640; 94660; 97110; 97162; 97166; 97530; 97535; 97802; 97803; 99251; 99285; G0008; J2185; J7030; J7050; J7120; 90686; A4216; C1752; G0257; G0463; J3010; J7799; U0002